=== PATIENT | male | born 1950 | race Caucasian/White ===

== ENCOUNTER → 2020-07-16 12:32 | Outpatient (CLI) | payer MEDICARE, SELFPAY ==
--- NOTE | ~2020-07-16 | XR_ITS ---
EXAMINATION: XR hip RT min 2V DATE: 07/16/2020 13:00 INDICATION: Right hip pain. TECHNIQUE: 2 views of right hip were obtained. COMPARISON: CT abdomen and pelvis 04/22/2018 FINDINGS: There is lumbar levocurvature and severe spondylosis. No fracture. There is mild osteoarthr itis of right hip. IMPRESSION: 1. Mild right hip osteoarthritis. Reviewed, dictated and finalized at location A. CTOR OF SPORTS MEDICINE
== END ==
PROVIDERS: PCP Family Medicine; Visit Provider Family Medicine
DX: M16.11 Unilateral primary osteoarthritis, right hip (principal)
CPT/HCPCS: 73502

== ENCOUNTER 2020-07-25 09:55 | Outpatient (CLI) | payer MEDICARE, SELFPAY ==
--- NOTE | ~2020-07-25 | US_ITS ---
EXAMINATION: US venous doppler LE RT DATE: 07/25/2020 10:36 INDICATION: Right lower limb pain and swelling. TECHNIQUE: Grayscale ultrasound images without and with compression and Doppler ultrasound images of the right lower extremity veins were obtained. COMPARISON: Ultrasound 05/31/2019 FINDINGS: The visualized portions of right common femoral vein, profunda (deep) femoral vein, femoral vein, pop liteal vein, peroneal veins, posterior tibial veins, and greater saphenous vein outflow are patent. IMPRESSION: 1. No deep venous thrombosis. Reviewed, dictated and finalized at location A. ORK TECHNOLOGY INSTRUCTOR
== END 2020-07-25 09:56 | disposition home or self-care (01) ==
PROVIDERS: PCP Family Medicine; Visit Provider Family Medicine
DX: M79.661 Pain in right lower leg (principal)
CPT/HCPCS: 93971

== ENCOUNTER 2020-10-11 13:30 | Outpatient (RCR) | payer MEDICARE, SELFPAY ==
--- NOTE | 2020-09-10 14:23 | LSVTBIG ---
PHYSICAL THERAPY EVALUATION AND PLAN OF CARE for LSVT BIG Thank you for referring Ori Bernardo to [facility].? The patient is scheduled to be seen for therapy? 2x/week for 4 weeks. Please review, sign, date and return this plan of care TAMMY. I agree with and certify that the following plan of care is medically necessary. Referring Physician Date Attending Provider: Dhiraj Cooper Physical Therapy Evaluation Outpatient Past Medical History Neurological History Hx Parkinson's Disease Yes Respiratory History Hx Asthma Yes Hx Sleep Apnea Yes Musculoskeletal History Hx Arthritis Yes: lumbar spine, hips Diagnosis Parkinson's Disease Onset 07/2014 Subjective Information Ori is here to participate Query Text:As Reported By Patient/ in LSVT program. He was Family diagnosed with PD in 2013. Notes that prior to July of 2020 he was walking occasionally with a cane, but he fellt twice and is now walking with a rollator. Self Report Pain Assessment Back Reported Pain Level 3 Pain Description Numbness,Tingling Pain Score Pain Score 3: Self Report Interventions Used Interventions Used By Clinicians Position Change Pain Relief Interventions Used By None Patient Parkinson's Related History Parkinson's Related History Diagnosis/Stage Date Of Initial 07/2014 Diagnosis What Were Your Initial Symptoms Of slowed speech, decreased Parkinson's Disease? loudness in voice, tremors mostly in left Do You Have A Tremor? Yes Describe Tremors tremors were worse at initial diagnosis, but now festinating head and arm movements are worse than tremors Medication For Parkinson's Disease carbadopa, levadopa, pramapixel, In What Ways Are Your Medications For keep me steadier, helps Parkinson's Helpful? activity level to maintain the same throughout the day Does Your Parkinson Medication Affect smooths movements out Your Movement? Please Describe Do You Experience On/Off Symptoms? states there is very little to Please Describe no tapering of symptoms between doses of medications, even at night Do You Experience Dyskinesias? yes, Have You Had Neurosurgery? Please no Describe Have You Had Orthopedic Surgery? Please no Describe Social History Socia
--- NOTE | 2020-09-11 11:11 | LSVTLOUD ---
SPEECH THERAPY EVALUATION and PLAN OF CARE for LSVT LOUD: Thank you for referring Ori Bernardo to [facility].? The patient is scheduled to be seen for therapy? 4x/week for 4 weeks. Please review, sign, date and return this plan of care TAMMY. I agree with and certify that the following plan of care is medically necessary. Referring Physician Date Admitting Provider: Attending Provider: Dhiraj Cooper *LSVT LOUD Evaluation Start: 09/10/20 14:12 Freq: Status: Active Protocol: Document 09/10/20 15:26 BECHERERT (Rec: 09/10/20 15:57 BECHERERT [id number]) Therapy Assessment Status Assessment Status Assessment Status Evaluation Outpatient Past Medical History Past Medical History Source of Past Medical History Patient Neurological History Hx Parkinson's Disease Yes: dx'd 2013 Respiratory History Hx Asthma Yes Hx Sleep Apnea Yes Musculoskeletal History Hx Arthritis Yes: lumbar spine, hips Prior Level of Function Activity Level (Last 3 Months) 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 Home Meds Must Be Re-entered With Each Visit. Prior Swallow Level Prior Intake Method Oral Prior Diet Regular (Level 7 Diet) Prior Liquid Consistency Thin (Level 0 Diet) Comments Additional Prior Level of Function pt reports he remains pretty Comments steady (re med effects) throughout the day and doesn't notice any decline when its time for meds. Pain Assessment Timing of Pain Assessment Timing of Pain Assessment Assessment Self Report Self Report Pain Level 0 Pain Score Pain Score 0: Self Report LSVT LOUD Evaluation Medical Information Date of Initial Diagnosis July, What Were Your Initial Symptoms of I noticed I could no longer Parkinson's Disease? trach talk with the inmates; I couldn't keep up in regards to speed and clarity. Medications For Parkinson's Disease carbidopa and levodopa How is Your Parkinson Medication Helpful reports not having any off/ ? on symptoms; pt feels that he remains steady re meds. Does Your Parkinson Medication Affect Pt stated no change with voice Your Voice? Please Describe after medications Do You Experience On/Off Symptoms? No Please Describe Surgical Informa
--- NOTE | 2020-09-13 10:19 | LSVTBIG ---
OCCUPATIONAL THERAPY EVALUATION REPORT 09/13/20 Thank you for referring Ori Bernardo to [facility].? The patient is scheduled to be seen for occupational therapy for LSVT BIG program? 2x/week for 4 weeks. Please review, sign, date and return this plan of care TAMMY. I agree with and certify that the following plan of care is medically necessary. Referring Physician Date Referring Provider: Dhiraj Cooper *LSVT BIG Evaluation Therapy Discipline Therapy Discipline Occupational Therapy Therapy Assessment Status Assessment Status Assessment Status Evaluation Outpatient Past Medical History Past Medical History Source of Past Medical History Patient Neurological History Hx Parkinson's Disease Yes: dx'd 2013 Respiratory History Hx Asthma Yes Hx Sleep Apnea Yes Musculoskeletal History Hx Arthritis Yes: lumbar spine, hips Evaluation Information Problem Diagnosis Parkinson's Disease Onset 07/2014 Subjective Information Ori is here to participate Query Text:As Reported By Patient/ in LSVT program. He was Family diagnosed with PD in 2013. Notes that prior to July of 2020 he was walking occasionally with a cane, but he fell twice and is now walking with a rollator. Previous Treatments Previous Treatments For This Problem Rock Steady Boxing ~5 years, currently goes 2x/week Pain Assessment Timing of Pain Assessment Timing of Pain Assessment Assessment Pain Scale Pain Scale Used Numeric (1 - 10) Self Report Pain Assessment Bilateral Leg(s) Reported Pain Level 4 Pain Description Tingling Back Reported Pain Level 0 Pain Score Pain Score 0,4: Self Report Interventions Used Interventions Used By Clinicians Rest Parkinson's Related History Parkinson's Related History Diagnosis/Stage Date Of Initial 07/2014 Diagnosis What Were Your Initial Symptoms Of slowed speech, decreased Parkinson's Disease? loudness in voice, tremors mostly in left Do You Have A Tremor? Yes Describe Tremors tremors were worse at initial diagnosis, but now festinating head and arm movements are worse than tremors Medication For Parkinson's Disease carbadopa, levadopa, pramapixel In What Ways Are Your Medications For keep me steadier, helps Parkinson's Helpful? activity level to maintain the same throughout the day Does Your Parkinson Medication Affect smooths mo
--- NOTE | 2020-10-03 09:07 | PCSTNOTE ---
10th Visit Progress Note for 10-02-20: Initial Goals: At this time, the pt presents with the following progression: 1* Pt will increase vocal loudness to reach target sound pressure level of 70db SPL at a 50cm microphone to mouth distance from 64.45dB at the time of the evaluation during sustained phonation, which will help increase vocal respiratory support required to be understood without cues. - pt is exhibiting consistent increased loudness during sustained phonation of greater that 75dB and is doing so with minimal to no cueing. 2* Pt will increase maximum phonation time to reach a duration of 12 seconds with min cues from 7.8 seconds at time of initial evaluation during sustained phonation, which will help increase vocal respiratory support required to be understood. - over the past 8 sessions the pt is exhibiting average phonation time of at least 12 seconds; moreover, during the past 4 sessions, the pt has achieved average phonation times exceeding 20 seconds. 3* Pt will increase vocal loudness to reach target sound pressure level of 68db SPL at a 50cm microphone to mouth distance with min cues from 64.32dB at the time of the evaluation during reading at word and sentence levels. - pt is exhibiting dB levels during reading of functional phrases greater than 70 with minimal cueing. 4* Pt will increase vocal loudness to reach target sound pressure level of 66db SPL at a 50cm microphone to mouth distance with min cues from 62.06dB at the time of the evaluation during conversational speech. - pt is not consistently achieving the targeted 66dB loudness level during conversational speech. At times, the pt averages 64-65 just falling below the target. 5*Understand communication impairment- pt verbalized understanding of communication impairment 6*Understand compensatory strategies 7*Understand treatment plan RE goals 5,6,& 7: The pt verbalizes understanding of communication impairment, compensatory strategies, & understands (via returned demonstration) treatment plan.
--- NOTE | 2020-10-10 14:05 | LSVTBIG ---
PHYSICAL THERAPY DISCHARGE NOTE Thank you for referring Ori Bernardo to [facility].? Please review, sign, date and return this plan of care TAMMY. I agree with and certify that the following plan of care is medically necessary. Referring Physician Date Attending Provider: Dhiraj Cooper Discharge Diagnosis Parkinson's Disease Onset 07/2014 Subjective Information Ori reports that his Query Text:As Reported By Patient/ has noticed a change in his Family mobility and walking. He is using his rollator less and less and feels safe to do so. He is ready to graduate from LSVT program and is understanding of all HEP. 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 3seconds 1month ago = 14 5 Time Sit to Stand Time in Seconds 12.5 5 Time Sit to Stand Comments 1month ago = 15.16seconds Query Text:Normative Data: If Greater Than 15 Seconds, 74% Increase Risk for Recurrent Falls Gait Assessment 6 Minute Walk Total Distance (feet) 1,242 6 Minute Walk Gait Speed Score (feet/ 3.45 second) 6 Minute Gait Comments today with rolltaor 1month ago with rollator walker: 1219ft, 3.38ft/second 2 Minute Walk Total Distance Walked (feet) 429 2 Minute Walk Gait Speed Score (feet/ 3.57 second) 2 Minute Walk Test Comments 1m
--- NOTE | 2020-10-11 13:16 | LSVTBIG ---
OCCUPATIONAL THERAPY RE-EVAL REPORT AND DISCHARGE SUMMARY 10/11/20 Today's OT re-evaluation reveals improved functional abilities with ADLs and mobility-related ADL tasks. He is currently independent with all materials. Discharging today with HEP. Thank you for referring Ori Bernardo to [facility].? Please review, sign, date and return this plan of care TAMMY. I agree with and certify that the following plan of care is medically necessary. Referring Physician Date Referring Provider: Dhiraj Cooper *LSVT BIG Evaluation Evaluation Information Problem Diagnosis Parkinson's Disease Onset 07/2014 Subjective Information Ori reports that his Query Text:As Reported By Patient/ have noticed improvements with Family his walking, balance, and voice. He is using his rollator less and less and feels safe to do so. He is independent with all LSVT exercsies and understands the importance of continuing to do these on his own. He is happy with the way things have been going . Pain Assessment Timing of Pain Assessment Timing of Pain Assessment Re-assessment Pain Scale Pain Scale Used Numeric (1 - 10) Self Report Pain Assessment Bilateral Leg(s) Reported Pain Level 2 Pain Description Aching Pain Score Pain Score 2: Self Report Interventions Used Interventions Used By Clinicians Rest ADL Assessment ADL Assessment Timed Dressing Tasks Timed patient's ability to dof , untie, tie, and don right shoe: 34 seconds (4 seconds faster) Timed Handwriting Worksheet: filling out name, address, , etc.: 49 seconds , right handed; no change in speed of completing worksheet, but handwriting is much larger and more legible Timed Mobility Related Task Moving to/from treatment 10 to 8, laying supine, rolling onto back and returning to room 10: 47 seconds (6 seconds faster). Pt did not use a rollator for mobility to/from. 9-Hole Peg Hand Test Interpretation Minimally Below Normal Comments 9-hole peg (R) hand 26s, (L) hand 24s ADL Assessment Comments At eval: (R) hand completed in 27 sec and (L) hand in 31 sec
--- NOTE | 2020-10-11 16:08 | LSVTLOUD ---
SPEECH THERAPY DISCHARGE: Thank you for referring rOi Bernardo to [facility].? Mr Bernardo is being discharge at this time. Refer to the re evaluation/discharge information below as it pertains to specifics of his vocal intensity. Please review, sign, date and return this discharge plan. I agree with and certify with the discharge from Speech Therapy services at this time. Referring Physician Date Attending Provider: Dhiraj Cooper *LSVT LOUD Re Evaluation/DISCHARGE: Therapy Assessment Status Assessment Status Assessment Status Discharge Outpatient Past Medical History Past Medical History Source of Past Medical History Patient Neurological History Hx Parkinson's Disease Yes: dx'd 2013 Respiratory History Hx Asthma Yes Hx Sleep Apnea Yes Musculoskeletal History Hx Arthritis Yes: lumbar spine, hips Evaluation Information Problem Diagnosis Parkinson's Disease Onset 07/2015 Subjective Information Ori reports that his Query Text:As Reported By Patient/ have noticed improvements with Family his voice; although she stills tells him to talk louder. He is independent with all LSVT exercises and understands the importance of continuing to do these on his own. He is happy with the way things have been going . Pain Assessment Timing of Pain Assessment Timing of Pain Assessment Assessment Self Report Self Report Pain Level 0 Pain Score Pain Score 0: Self Report LSVT LOUD Evaluation Medical Information Medications For Parkinson's Disease carbidopa and levodopa Task 1 LSVT LOUD Evaluation Protocol Maximum Duration of Sustained Vowel Phonation Task 1: Sound Pressure Level Meter to 50cm Mouth Distance Task 1: Average of -ah- in Seconds 26.61 Task 1: Average of -ah- in Decibels of 79.77 Sound Pressure Level Query Text:(dB SPL) Task 1: Range (dB SPL) 73-85 Task 1: Comments The above task was completed without any instruction to increase loudness. During treatment sessions, pt has achieved an average as high as 29.06 and average db as high as 82 Task 2 LSVT LOUD Evaluation Protocol Maximum Fundamental Frequency Range Task 2: Highest Pitch 380 Task 2: Pitch Range 375-380 Task 2: Lowest Pitch 85 Task 2: Pitch Range 85-137 Task 2: Comments In treatment sessions, pt has
== END 2020-10-12 07:49 | disposition home or self-care (01) ==
LOC: ANHST 13:30
PROVIDERS: PCP Internal Medicine
DX: G20 Parkinson's disease (principal); R13.0 Aphagia
CPT/HCPCS: 92507; 92524; 97110; 97116; 97162; 97166; 97530

== ENCOUNTER 2020-11-02 10:00 | Outpatient (RCR) | payer MEDICARE, SELFPAY ==
--- NOTE | 2020-10-12 11:40 | PTOPEVAL ---
PHYSICAL THERAPY EVALUATION AND PLAN OF CARE 10-12-20 Thank you for referring Ori Bernardo to [facility], for the diagnosis of LE lymphedema. Gene is scheduled to be seen for therapy? 3 x/week for 4 weeks. Please review, sign, date and return this plan of care TAMMY. I agree with and certify that the following plan of care is medically necessary. Referring Physician Date Attending Provider: Ronald Morse DO *PT Outpatient Evaluation Document 10/12/20 10:40 MARTHA (Rec: 10/12/20 11:40 MARTHA [id number]) Outpatient Past Medical History Past Medical History Source of Past Medical History Recalled from Previous Visit, Confirmed with Patient/Family Neurological History Hx Parkinson's Disease Yes: dx'd 2013 Cardiovascular History Hx Cardiac Disorders No Significant History Respiratory History Hx Asthma Yes Hx Sleep Apnea Yes Gastrointestinal History Hx Hernia Yes: surgical repair 2016 Genitourinary History Hx Other Genitourinary Disorders Yes: overactive bladder- meds Musculoskeletal History Hx Arthritis Yes: lumbar spine, hips Endocrine History Hx Endocrine Disorders No Significant History HEENT History Hx Other HEENT Disorders Yes: wear glasses; 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 Reproductive History Hx Other Reproductive Disorders Yes: cyst removed from testicle ~ 2016 Evaluation Information Problem Diagnosis lymphedema of B LE, R > L Onset 2019 Subjective Information have had swelling in legs for Query Text:As Reported By Patient/ a few years Family Previous Treatments Previous Treatments For This Problem recent PT here for LSVT- Parkinson's program Prior Level of Function Activity Level (Last 3 Months) Occupation retired Activity of Daily Living Ability Independent Indoor/Home Mobility Independent Community Mobility Independent Stairs Ability Independent Functional Cognition (Planning, Shopping Independent , Taking Medications) Cooking Yes Cleaning Yes Laundry Yes Shopping Yes Driving Yes Home Setting Mobility Assistive Devices (Used Last 3 None,Walker, Rollator Months) Comments Additional Prior Level of Function in home do not use rollator; Comments difficulty getting on/off floor; Pain Assessment Timing of Pain Assessment Timing of Pain Assessment Assessment Pain Scale Pain Scale Used Numeric (1 - 10) Self Repo
--- NOTE | 2020-10-24 15:57 | PCPTNOTE ---
Discussed pt with Mira Hawkins ADULT PAROLE OFFICER and EMR reviewed; pt's L LE has increased in size with circumferential measurement increased by 1.3 cm; plan of care to include treatment to L LE--compression wraps and MLD;
--- NOTE | 2020-11-02 16:16 | PCPTNOTE ---
PHYSICAL THERAPY DISCHARGE 11-02-20 Attending Provider: Ronald Morse DO Patient:Ori Bernardo Date of :1950 Mr. Bernardo has received a total of 9 PT sessions for the diagnosis of B LE lymphedema. Circumferential measurements of his legs, from the bottom of the foot, up to 68 cm: R is 735.7 cm, decreased by 28.5 cm and L is 725.0 cm, decreased by 11 cm, compared to the initial evaluation. The skin integrity has improved of both legs--no longer has any redness or firmness of the tissue. Gene has R and L compression knee highs- Mediven Plus, 20-30 mmHg compression knee highs, to maintain his lymphedema. And is independent with donning/doffing them. Education has been completed on lymphedema, and he is independent with doing his self lymph drainage, compression knee highs and monitor his skin. The goals have been achieved. Therefore, he will be discharged from PT at this time. Thank you for referring Mr. Bernardo to [facility]. Please review, sign, date and return this discharge summary TAMMY. I have been updated about the patient's current status and I agree with discharge from the above service at this time. Referring Physician Date
== END 2020-11-05 14:37 | disposition home or self-care (01) ==
LOC: ANHPT 10:00
PROVIDERS: Family Provider Family Medicine; PCP Internal Medicine; Referring Provider Internal Medicine; Visit Provider Internal Medicine
DX: I89.0 Lymphedema, not elsewhere classified (principal)
CPT/HCPCS: 29581; 97140; 97161

== ENCOUNTER → 2020-11-27 14:02 | Outpatient (CLI) | payer MEDICARE, SELFPAY ==
--- NOTE | ~2020-11-27 | XR_ITS ---
EXAMINATION: XR foot LT min 3V DATE: 11/27/2020 14:52 INDICATION: Left foot pain. TECHNIQUE: 4 views of left foot were obtained. COMPARISON: None. FINDINGS: Bone alignment is normal. No acute fracture. There is diffuse osteopenia. There is mild ost eoarthritis of first metatarsophalangeal joint and many of the interphalangeal joints and midfoot kisha nts. There is severe osteoarthritis of second tarsometatarsal joint. There are enthesophytes at the p osterior and plantar aspects of calcaneal tuberosity. IMPRESSION: 1. Polyarticular osteoarthritis. Reviewed, dictated and finalized at location A.
== END ==
PROVIDERS: PCP Internal Medicine; Visit Provider Internal Medicine
DX: M19.072 Primary osteoarthritis, left ankle and foot (principal)
CPT/HCPCS: 73630

== ENCOUNTER → 2021-12-27 01:34 | Outpatient (CLI) | payer MEDICARE, SELFPAY ==
[2021-12-27 12:42] LABS: SARS-CoV-2 RNA PCR Positive
== END ==
PROVIDERS: PCP Internal Medicine; Visit Provider Internal Medicine
DX: U07.1 COVID-19 (principal)
CPT/HCPCS: C9803; U0003; U0005

== ENCOUNTER → 2022-02-18 07:36 | Outpatient (CLI) | payer MEDICARE, SELFPAY ==
--- NOTE | ~2022-02-18 | XR_ITS ---
EXAMINATION: XR hip LT 2V w AP pelvis INDICATION: Left hip pain TECHNIQUE: AP view of the pelvis and left hip are obtained. COMPARISON: 08/25/2017 FINDINGS: Bone alignment is normal. There is no fracture. There is mild osteoarthritis of the hips. S evere lumbar spondylosis is noted. IMPRESSION: 1. Mild osteoarthritis of the hips. Reviewed, dictated and finalized at location A.
== END ==
PROVIDERS: PCP Internal Medicine; Visit Provider Nurse Practitioner
DX: M16.0 Bilateral primary osteoarthritis of hip (principal)
CPT/HCPCS: 73502

== ENCOUNTER 2022-12-02 08:30 | Outpatient (RCR) | payer MEDICARE, SELFPAY ==
--- NOTE | 2022-11-05 13:23 | PTOPEVAL1 ---
Assessment and note entered by Kay Munoz, PT Evaluation Information Assessment Status Evaluation Diagnosis Parkinson's Disease with gait and imbalance Onset May 2022 Subjective Information gradual decrease in balance; had 2 falls in the past 6 months-- tripped over carpets; was able to get himself up off floor; Do [employer] boxing 2x/wk, spin/bicycle class 2x/wk, have [employer] membership and walk outside when weather is nice; have been here in the past for the LSVT program but not doing those exercises anymore; feels like his Parkinson's is getting worse; is taking the max dose of his meds; going to the dr next week about his L ear--have failed implant and having pain and issues with it; to see dr about if need to remove the implant. Reported Pain Level Pain Score 4: Self Report Additional Pain Score Comments arthritis in both hips, per xray Assessment PT Clinical Summary Arthur has the diagnosis of Parkinson's Disease with decreased gait and balance. He is now using the wheeled walker all of the time and has had 2 falls in the past 6 months. He has been staying active with [employer], [employer] exercises and walking, but reports still having problems with balance and walking. With the evaluation, his 5 reps sit/stand time is WNL, Camejo balance score is decreased 36/56; TUG is 16 seconds and 2 minute walking test distance is 375'; he has decreased safety with stand to sit transfer and festering gait pattern, with decreased heel strike. Skilled PT services are indicated for therapeutic exercises and activities to increase LE strength, gait and balance skills, to improve safety and mobility, to decrease risk for additional falls and improve mobility skills. Use of LSVT program. Education for home exercises. Plan of Care Interventions Gait Training,Neuro Re-education,Patient/Caregiver Education,Therapeutic Activities,Therapeutic Exercise,Other Other Interventions LSVT program PT Services Indicated Yes Treatment Frequency and 2x/wk for 4 weeks Duration These treatments will address the objective and functional deficits as defined above. The patient will be advanced safely and appropriately in order for the patient to progress towards his/her prior level of function. Additional exercises will be introduced and as well as a comprehensive home exercise program upon di
--- NOTE | 2022-12-02 09:09 | PTOPDC ---
Assessment and note entered by Kay Munoz, PT Evaluation Information Assessment Status Discharge Diagnosis Parkinson's Disease with gait and imbalance Onset May 2022 Subjective Information Arthur reports: about the same with walking and balance; have not had any falls; still have pain in the hips, some days hips feel better than others; is still doing [employer], spinning classes, chair exercises; Reported Pain Level Pain Score 0: Self Report; does have pain in hips at times Assessment PT Clinical Summary Arthur has received 8 PT sessions. Compared to the initial evaluation: 2 minute walking test distance increased by 50'; gait pattern has improved with good step length and heel strike during the walk test; Camejo balance score increased by 1 point--he continues to have difficulty with single leg standing and small base of support activities; he continues to have issues with festering with sit/stand- initiation and stopping gait; He is indep with his home exercises and remains active with [employer]--Parkinson's boxing class, spinning class on bicycle, walking and exercises from therapy sessions. The goals were partially achieved. Discharge PT services. Plan of Care PT Services Indicated No
== END 2022-12-02 15:06 | disposition home or self-care (01) ==
LOC: ANHPT 08:30
PROVIDERS: PCP Internal Medicine
DX: G20 Parkinson's disease (principal)
CPT/HCPCS: 97110; 97112; 97161; 97530

== ENCOUNTER 2023-01-16 10:16 | Emergency (ER) | payer MEDICARE, SELFPAY ==
[2023-01-16 10:25] VITALS: BP 122/49; PULSE 65; RESP 20; TEMP 36.6; O2SAT 98
--- NOTE | 2023-01-16 11:15 | ED.BACK ---
HPI - Back Pain/Injury General Chief Complaint: Back Pain/Injury Stated Complaint: Back Pain Time Seen by Provider: 01/16/23 11:15 Source: patient, RN notes reviewed and old records reviewed Mode of arrival: ambulatory Limitations: no limitations History of Present Illness HPI Narrative: 72-year-old male presents to the [facility] complaints of left lower back pain since Thursday. No injuries. Tenderness through the muscular area. No midline tenderness. reports his normal gait, has a history of Parkinson's. No loss retention of bowel or bladder. No saddle anesthesia nor numbness or tingling in extremities. States his muscle relaxer is not working. Tried getting in with primary care provider for stronger pain medication. Related Data Home Medications Medication Instructions Recorded Confirmed calcium polycarbophil 625 mg 1,250 mg PO BID 03/24/22 10/09/22 tablet (FiberCon) gabapentin 400 mg capsule 300 mg PO QHS 04/25/22 10/09/22 amantadine HCl 100 mg capsule 100 mg PO TID 09/29/22 10/09/22 carbidopa 25 mg-levodopa 250 mg 1 tablet PO TID 09/29/22 10/09/22 tablet entacapone 200 mg tablet 200 mg PO QID 09/29/22 10/09/22 pramipexole 1 mg tablet (Mirapex) 1 mg PO TID 09/29/22 10/09/22 Vitamin B-12 1,000 mg 01/16/23 vibegron 75 mg tablet (Gemtesa) mg 01/16/23 Allergies Allergy/AdvReac Type Severity Reaction Status Date / Time No Known Allergies Allergy Verified 01/16/23 10:49 Review of Systems Review of Systems: All systems reviewed & are unremarkable except as noted in HPI and below Constitutional: Constitutional: Reports no additional constitutional complaints Eyes: Eyes: Reports no additional eye complaints ENT: Reports system reviewed and no additional complaints, except as documented Cardiovascular: Cardiovascular: Reports no additional cardiovascular complaints, Denies chest pain and Denies dyspnea Respiratory: Respiratory: Reports no additional respiratory complaints, Denies chest congestion, Denies cough and Denies dyspnea Gastrointestinal: Gastrointestinal: Reports no additional gastrointestinal complaints, Denies abdominal pain, Denies nausea and Denies vomiting Musculoskeletal: Musculoskeletal: Reports as per HPI Integumentary/Breasts: Skin/Breast: Reports system reviewed and no additional complaints, except as docu Neurologic: Reports system reviewed and no additional complaints, except as documented Psychiatric: Psychiatric: Reports no additional psychiatric complaints Allergic/Immunologic: Allergic/Immunologic: Reports no additional allergic/immunologic complaints [facility] Past Medical History Medical History Asthma Body mass index (bmi) 39.0-39.9, adult (01/20/18) Body mass index (BMI) 40.0-44.9, adult (07/29/18) Encounter for other specified surgical aftercare Esophageal reflux Extrinsic asthma, unspecified Lymphedema Non-recurrent bilateral inguinal hernia without obstruction or gangrene KYLE on CPAP Parkinson disease Surgical History Surgical History History of ear surgery (~11/2017) Implant - Lt Ear History of removal of cyst (~07/29/17) Rt Testicle History of surgery on arm (~1998) Muscle Tear - Rt History of tooth extraction Family History Family History Father Diabetes mellitus Mother Hypertension Family history of kidney disease Family history of renal failure Sibling Asthma Family history of malignant neoplasm Family history of seizure disorder Family history of sudden , Onset Age: 57 Family history of congestive heart failure, Onset Age: 57 Protein S deficiency Social History Social History Smoking status: Never smoker Second hand tobacco smoke exposure: No Alcohol intake: never Substance use:
[2023-01-16 11:48] VITALS: BP 120/40
== END 2023-01-16 11:48 | disposition home or self-care (01) ==
PROVIDERS: Emergency Provider Nurse Practitioner; PCP Family Medicine Adolescent Medicine
DX: S39.012A Strain of muscle, fascia and tendon of lower back, initial encounter (principal); X58.XXXA Exposure to other specified factors, initial encounter; G20 Parkinson's disease; J45.909 Unspecified asthma, uncomplicated; K21.9 Gastro-esophageal reflux disease without esophagitis; G47.33 Obstructive sleep apnea (adult) (pediatric)
CPT/HCPCS: 99213; G0463

== ENCOUNTER 2023-02-16 14:00 | Outpatient (RCR) | payer MEDICARE, SELFPAY ==
--- NOTE | 2023-02-10 09:51 | OPREHPOC ---
Outpatient Therapy Plan of Care This is a Multidisciplinary Plan of Care that may contain components documented by all disciplines (PT, OT, and ST.) PT Problem 1 PT Problem #1 Knowledge Deficit PT Goal 1 Goal Independent with HEP Target Visit 6 PT Problem 2 PT Problem #2 Pain PT Goal 1 Goal decrease pain to 4/10 first thing in the morning Target Visit 6 PT Problem 3 PT Problem #3 Impaired Flexibility PT Goal 1 Goal -30 degrees BIGG hamstring length in 90/90 Target Visit 6
--- NOTE | 2023-02-10 09:51 | PTOPEVAL1 ---
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 Patient reports it mainly hurts after being immobile for awhile like sleeping and feeling better after walking. Patient reports he stays active doing [employer] boxing, a spin class, and walking for at least 30 minutes duration at the [facility]. The patient has a prior diagnosis of PD and uses a 4WW. Patient wants to stay as mobile as he can. Reported Pain Level Pain Score 8: Self Report Assessment PT Clinical Summary Gene is a 72 year old male coming into the clinic with a diagnosis of L hip pain. Patient has a positive scouring test, tightness in his hamstring , decreased hip extension range of motion and weakness in the hip extension, abduction. Along with stretching and strengthening of the L hip physical therapist recommended to the patient that he might want to get an orthopedic referral for possible injection or further imaging. Physical therapy will also do modalities and manual as needed for pain control. Plan of Care Interventions Electrical Stimulation,Gait Training,Hot Pack/Cold Pack,Manual Therapy,Neuro Re-education,Patient/ Caregiver Education,Therapeutic Activities, Therapeutic Exercise,Ultrasound Other Interventions cupping, taping, IASTM PT Services Indicated Yes Treatment Frequency and 1-2x/wk for 4 weeks Duration These treatments will address the objective and functional deficits as defined above. The patient will be advanced safely and appropriately in order for the patient to progress towards his/her prior level of function. Additional exercises will be introduced and as well as a comprehensive home exercise program upon discharge, if needed, ?to ensure carryover of functional gains achieved in the clinic. This treatment plan has been reviewed and agreement upon by the patient.
--- NOTE | 2023-02-18 07:52 | PCPTNOTE ---
Patient called & cancelled scheduled appointment this date due to having problems with his hip. He said that he was going to go to the doctor to get it looked at.
--- NOTE | 2023-02-19 15:32 | PTOPDC ---
Assessment and note entered by Jim Scott, PT Evaluation Information Assessment Status Discharge - Pt Not Present Diagnosis L hip pain Subjective Information Arthur called into the yield clerk and asked to cancel all appointments. Said he would get a new order if he needs to return. Assessment PT Clinical Summary Arthur is a 72 year old male coming into the clinic with a diagnosis of L hip pain. Patient has a positive scouring test, tightness in his hamstring , decreased hip extension range of motion and weakness in the hip extension, abduction. Along with stretching and strengthening of the L hip physical therapist recommended to the patient that he might want to get an orthopedic referral for possible injection or further imaging. Physical therapy will also do modalities and manual as needed for pain control. Plan of Care PT Services Indicated Yes
== END 2023-02-20 08:20 | disposition home or self-care (01) ==
LOC: ANHPT 14:00
PROVIDERS: PCP Family Medicine; Visit Provider Nurse Practitioner Family
DX: M54.9 Dorsalgia, unspecified (principal)
CPT/HCPCS: 97035; 97110; 97161

== ENCOUNTER 2023-09-03 09:08 | Emergency (ER) | payer MEDICARE, SELFPAY ==
[2023-09-03] VITALS (13 sets, daily range): BP systolic 140–163; BP diastolic 62–114; PULSE 64–71; RESP 17–31; TEMP 36.6; O2SAT 96–99
--- NOTE | ~2023-09-03 | CT_ITS ---
EXAMINATION: CT brain wo con DATE: 09/03/2023 10:09 INDICATION: Parkinson's disease post fall TECHNIQUE: Computed tomography (CT) of the head was performed without intravenous contrast. Sagittal and coronal reconstructions were performed. The mA was adjusted according to patient size. Iterative reconstruction technique was employed. The dose-length product was 1362.00 mGy-cm. COMPARISON: Brain MR dated 06/13/2014 FINDINGS: No fracture. No acute intracranial hemorrhage, acute infarction or abnormal extra axial fluid collect ion. There is mild scattered white matter hypoattenuation consistent with chronic small vessel ischem ic disease. Ventricles are normal and symmetric. No mass/mass effect. The orbits, paranasal sinuses a nd mastoid air cells are normal. IMPRESSION: 1. No fracture or acute intracranial process. 2. Mild scattered white matter hypoattenuation consistent with chronic small vessel ischemic disease. Reviewed, dictated and finalized at location A. ER OVER IMPRESSION: 1. No fracture or acute intracranial process. 2. Mild scattered white matter hypoattenuation consistent with chronic small ve ssel ischemic disease.
--- NOTE | ~2023-09-03 | CT_ITS ---
EXAMINATION: CT lumbar spine wo con DATE: 09/03/2023 10:10 INDICATION: Low back pain and radiculopathy post fall TECHNIQUE: Computed tomography (CT) of the lumbar spine was performed without intravenous contrast. A utomated exposure control and iterative reconstruction technique were employed. The dose-length produ ct was 1621.48 mGy-cm. COMPARISON: Lumbar spine radiographs dated 08/25/2017 and KUB dated 06/30/2019 FINDINGS: Unchanged 14 degree levoscoliosis measured between L1 and L3. There is severe disc height loss with a ssociated Modic type III sclerotic endplate changes at L2-L3, L5-S1 and at the right side of L1-L2. S ome associated endplate remodeling resulting in mild right anterior vertebral body height loss at L1 and L2 and mild left-sided vertebral body height loss at L5. More typical likely physiologic mild ant erior wedging at T11. No acute fracture additional severe disc height loss at L4-L5, moderate left-si ded predominant disc height loss at L3-L4 and mild disc height loss at multiple levels in the visuali zed lower thoracic spine. 3 mm nonobstructing stone at the lower pole of the right kidney. Moderate b ilateral sacroiliac osteoarthritis. The following disc levels are specifically discussed: T8-T9: There is mild bilateral facet joint osteoarthritis. There is mild left neural foraminal stenos is. There is no central canal stenosis. T9-T10: There is mild right and moderate left facet joint osteoarthritis. There is mild bilateral regan ral foraminal stenosis. There is no central canal stenosis. T10-T11: There is mild right and severe left facet joint osteoarthritis. There is mild bilateral neur al foraminal stenosis. There is no central canal stenosis. T11-T12: There is mild bilateral facet joint osteoarthritis. There is mild bilateral neural foraminal stenosis. There is no central canal stenosis. T12-L1: There is moderate left and mild to moderate right facet joint osteoarthritis. There is no regan ral foraminal stenosis. There is no central canal stenosis. L1-L2: Posterior disc osteophyte complex. There is severe right and mild to moderate left facet joint osteoarthritis. There is mild left and moderate right neural foraminal stenosis. There is mild centr al canal stenosis. L2-L3: Posterior disc osteophyte complex. There is moderate bilateral facet joint osteoarthritis. The re is moderate bilateral neural foraminal stenosis. There is moderate central canal stenosis. L3-L4: Posterior disc osteophyte complex. There is moderate bilateral facet joint osteoarthritis. The re is mild to moderate bilateral neural foraminal stenosis. There is mild central canal stenosis. L4-L5: Posterior disc osteophyte complex. There is moderate bilateral facet joint osteoarthritis. The re is moderate bilateral neural foraminal stenosis. There is mild central canal stenosis. L5-S1: Posterior disc osteophyte complex. There is severe bilateral facet joint osteoarthritis. There is moderate right and severe left neural foraminal stenosis. There is mild central canal stenosis. IMPRESSION: 1. Severe lumbar spondylosis. No acute osseous abnormality. 2. 3 mm nonobstructing right renal stone. Reviewed, dictated and finalized at location A. DING COORDINATOR
--- NOTE | 2023-09-03 09:24 | ED.GENADULT ---
HPI - General Adult General Chief complaint: Extremity Injury, Lower Stated complaint: sciatica, on floor all night Time Seen by Provider: 09/03/23 09:10 Source: patient Mode of arrival: ambulatory Limitations: no limitations History of Present Illness HPI narrative: This is a 73-year-old male with PMH Parkinson's, sciatica, lymphedema, who presents to the ED with EMS with chief complaint of a fall last night. Patient slid out of his chair due to left-sided sciatic pain and was unable to get up from the floor. Denies head injury or LOC. States he was down on the floor all night long until this morning. Reports that he slept great. His called EMS because his pain was so bad he could not get up. Denies fevers, chills, numbness, weakness, loss of bowel or bladder function, saddle anesthesia. Related Data Home Medications Medication Instructions Recorded Confirmed calcium polycarbophil 625 mg 1,250 mg PO BID 03/24/22 07/29/23 tablet (FiberCon) amantadine HCl 100 mg capsule 100 mg PO TID 09/29/22 07/29/23 carbidopa 25 mg-levodopa 250 mg 1 tablet PO TID 09/29/22 07/29/23 tablet entacapone 200 mg tablet 200 mg PO QID 09/29/22 07/29/23 pramipexole 1 mg tablet (Mirapex) 1 mg PO TID 09/29/22 07/29/23 Vitamin B-12 1,000 mg 01/16/23 07/29/23 finasteride 5 mg tablet 5 mg PO DAILY 07/29/23 07/29/23 gabapentin 600 mg tablet 600 mg PO QHS 07/29/23 07/29/23 tamsulosin 0.4 mg capsule 0.4 mg PO DAILY 07/29/23 07/29/23 Allergies Allergy/AdvReac Type Severity Reaction Status Date / Time No Known Allergies Allergy Verified 09/03/23 09:11 Review of Systems Review of Systems: All systems as dictated in [facility] Past Medical History Medical History Asthma Body mass index (bmi) 39.0-39.9, adult (01/20/18) Body mass index (BMI) 40.0-44.9, adult (07/29/18) Encounter for other specified surgical aftercare Esophageal reflux Extrinsic asthma, unspecified Lymphedema Non-recurrent bilateral inguinal hernia without obstruction or gangrene KYLE on CPAP Parkinson disease Surgical History Surgical History History of ear surgery (~11/2017) Implant - Lt Ear History of removal of cyst (~07/29/17) Rt Testicle History of surgery on arm (~1998) Muscle Tear - Rt History of tooth extraction Family History Family History Father Diabetes mellitus Mother Hypertension Family history of kidney disease Family history of renal failure Sibling Asthma Family history of malignant neoplasm Family history of seizure disorder Family history of sudden , Onset Age: 57 Family history of congestive heart failure, Onset Age: 57 Protein S deficiency Social History Social History Smoking status: Never smoker Second hand tobacco smoke exposure: No Alcohol intake: never Substance use: never Substance use type: does not use Lack of Transportation: No Current Housing: I Have Housing Concerned About Future Housing: No Difficulty Paying Gas/Electric Bills: No Difficulty Paying for Meds: No Currently Unemployed: No Education: High School Diploma/GED Difficulty w/ Childcare or Family Care: No Exam Narrative: GENERAL: Well-appearing, well-nourished, and in no acute distress. HEAD: Normocephalic, atraumatic. EYES: PERRLA and EOMI. ENT: Nares clear, no rhinorrhea or epistaxis. Mucous membranes moist. Oropharynx without tonsillar hypertrophy exudate or other lesions. NECK: Supple. No adenopathy or masses. CHEST: No respiratory distress. Clear to auscultation. No wheezes rales or rhonchi HEART: Regular rate and rhythm. No murmur heard. Normal peripheral pulses. ABDOMEN: Soft, nontender, nondistended, normal active bowel sounds. MSK: Normal range of motion
[2023-09-03 09:54] LABS: Basophils Percent Auto 0.5 % (0.2-1.2); Eosinophils Absolute Auto 0.2 K/mm3 (0-0.3); Eosinophils Percent Auto 2.4 % (0-4.4); Hematocrit 43.7 % (42.0-52.0); Immature Granulocyte Absolute 0.02 K/mm3 (0.00-0.031); Immature Granulocyte Percent A 0.3 % (0-0.5); Lymphocytes Percent Auto 15.2 % (18.3-44.2); Mean Corpuscular Volume 90.7 fl (80-100); Mean Platelet Volume 11.3 fl (7.4-10.4); Monocytes Absolute Auto 0.6 K/mm3 (0.1-0.6); Monocytes Percent Auto 7.6 % (2.6-8.5); Neutrophils Absolute Auto 5.8 K/mm3 (1.3-6.7); Platelet Count Result 173 k/mm3 (150-375); Red Blood Count 4.82 M/mm3 (4.6-6.20); Red Cell Distribution Width 13.2 % (11.5-14.5); White Blood Count 7.9 K/mm3 (4.5-10.0)
[2023-09-03 10:07] LABS: Aspartate Amino Transferase 21 U/L (17-59); Blood Urea Nitrogen 17 mg/dL (9-20); Calcium 8.6 mg/dL (8.4-10.2); Creatine Kinase 139 U/L (55-170); Estimated CRCL calculation 100 ml/min; Estimated Glomerular Filt Rate > 60; Potassium 3.9 mmol/L (3.4-5.0); Sodium 141 mmol/L (137-145)
[2023-09-03] MEDS: SODIUM CHLORIDE 0.9% IV 1,000 ML 999 ML IV CONT (10:21)
[2023-09-03] MEDS: HYDROmorphone HCL INJ (*CRX) 1 MG/ML SYR 0.5 MG IV PUSH (10:21)
[2023-09-03 10:54] LABS: Appearance Urine Clear (Clear); Bilirubin Urine 1+ (Negative); Blood Urine Negative (Negative); Color Urine Dark Yellow (Yellow); Glucose Urine UA Negative (Negative); Ketones Urine Trace mg/dL (Negative); Leukocyte Esterase Ur Negative LEU/UL (Negative); Nitrate Urine Negative (Negative); Protein Urine Negative (Negative); Specific Grav Ur 1.027 (1.001-1.035); Urobilinogen Urine 0.2 mg/dL (<2.0); pH Urine 5.5 (5.0-9.0)
[2023-09-03 11:06] LABS: Add Urine Microscopic? NO
[2023-09-03 11:07] LABS: Alanine Aminotransferase 6 U/L (6-50); Albumin Level 3.6 g/dL (3.5-5.1); Alkaline Phosphatase 74 U/L (38-126); Anion Gap 6 mmol/L (8-16); Carbon Dioxide 26 mmol/L (22-30); Chloride 109 mmol/L (98-107); Glucose 104 mg/dL (65-110)
--- NOTE | 2023-09-03 11:34 | PC.NURSE ---
Ambulated in doty using walker. Walked well using walker.
== END 2023-09-03 12:22 | disposition home or self-care (01) ==
PROVIDERS: Emergency Provider Physician Assistant; PCP Family Medicine
DX: M54.42 Lumbago with sciatica, left side (principal); G20.A1 Parkinson's disease without dyskinesia, without mention of fluctuations; J45.909 Unspecified asthma, uncomplicated; G47.33 Obstructive sleep apnea (adult) (pediatric); K21.9 Gastro-esophageal reflux disease without esophagitis; M47.816 Spondylosis without myelopathy or radiculopathy, lumbar region; N20.0 Calculus of kidney; W07.XXXA Fall from chair, initial encounter
CPT/HCPCS: 36415; 70450; 72131; 80053; 81003; 82550; 85025; 96361; 96374; 99284; J1170; J7030

== ENCOUNTER 2023-11-12 14:30 | Outpatient (RCR) | payer MEDICARE, SELFPAY ==
--- NOTE | 2023-09-30 15:13 | STOPEVAL1 ---
Assessment and note entered by Renee Kim [employer]IST Evaluation Information Assessment Status Evaluation Reported Pain Level Pain Score 0: Self Report Assessment ST Clinical Summary VOICE EVALUATION The patient has a history of Parkinson's disease with voice disorder. He reports that he feels that his speech and voice skills have been going downhill in the past two to three years. He was diagnosed with Parkinson's in 2013. Patient reports that he completed the LSVT-LOUD and the BIG program in 2019 or 2020 with Liz, speech pathologist, and a physical therapist at this facility and he felt that it had facilitated improvements in his speech and vocal loudness. Because he feels that his communication skills have faltered, he wants to return for direct Speech Therapy. Patient reports that the communication between him and his and other friends/family is affected by his soft voice. He stated, I do have to repeat a lot. He cannot sit across the room from them and/or must turn the television down to speak loud enough for them to hear him. A voice evaluation was performed; patient's vocal loudness for direct evaluation tasks was judged to be grossly within normal limits, ranging from 73 to 78 decibels; conversational, off the cuff, loudness was found to average at 72 decibels. Average decibel range for conversation in the therapy room is 70-74 decibels placing patient within normal limits. At the same time, due to periods of reduced loudness and fast rate of speech, therapist heard and understood the patient's conversational speech on first attempt at 75% of the time indicating therapist had to request patient repeat his comments 25% of the time in order to be fully understood. Patient has completed LSVT-LOUD therapy for vocal loudness for Parkinson's disease previously and understands the basics. He desires to return to post-treatment level of communication. He will be seen for direct Speech Therapy for 3x weekly for two weeks, then twice weekly for two weeks, for instruction of home exercise program which must be completed 5-6 days w
--- NOTE | 2023-09-30 15:54 | OPREHPOC ---
Outpatient Therapy Plan of Care This is a Multidisciplinary Plan of Care that may contain components documented by all disciplines (PT, OT, and ST.) PT Problem 1 PT Problem #1 Knowledge Deficit PT Goal 1 Goal *indep with HEP PT Problem 2 PT Problem #2 Pain PT Goal 1 Goal * monitor back pain during sessions PT Problem 3 PT Problem #3 Impaired Flexibility PT Goal 1 Goal improve hip and trunk flexibility to improve standing position and posture anterior hip-quad length with supine and leg over edge of mat, knee flexion to 105' 1* R 2 * L hamstring length with supine SLR to 55' 3* R 4* L PT Problem 4 PT Problem #4 Impaired Functional Mobility PT Goal 1 Goal improve LE strength and balance, to decrease risk for falls and improve mobility skills: 1* pt perform supine bridge x 20 reps with good hip control 2* 5 reps sit/stand time of 14 seconds with good control of transfer 3* pt transfer sit/stand with correct technique without verbal reminders 4* 2 minute walking test distance of 450' 5* with 2 minute walking test, pt have heel strike 50% of walking time 6* Camejo balance score of 52/[address] Problem #[address] Goal 1 Goal 1. Demonstrate good understanding of anatomy and physiology of voice and how to produce loud, acceptable voice. 2. State goals of loud therapy and why we need to focus on loudness in order to produce acceptable loudness. Target Visit [address] Problem #[address] Goal 1 Goal 1. Sustain loud ah sound with 80+decibels and for up to 15 seconds 90% of the time. 2. Imitate words/sentences with 78+ decibels 90% of the time. 3. Orally read words/sentences with 78+ decibels 90% of the time. 4. Participate in conversation with 78+ decibels
--- NOTE | 2023-09-30 15:54 | PTOPEVAL1 ---
Assessment and note entered by Kay Munoz, PT Evaluation Information Assessment Status Evaluation Diagnosis Parkinson's, falls, decreased walking balance Onset October 2022 Subjective Information having more problems with walking due to freezing; have made a change in Parkinson's meds, about 3 weeks ago, reduced dose due to having more tremors and side effects; still have the same amount of freezing; have had 3-4 falls in the past 6 months--tripping over something on the floor- carpet or when rushing and walking; Activity: use wheeled walker most of the time, sometimes use quad cane for short distances or in home; doing [employer] boxing 2x/wk, [employer] chair exercises and spinning 2x/wk; walking outside when weather is nice ~ 20-25 minutes; have stairs at home, go down backwards and do not carry anything- have 1 railing--feel doing OK on stairs; Goal: reduce freezing and balance better with walking; Reported Pain Level Pain Score 0: Self Report Pain Score 0: Self Report Additional Pain Score Comments at rest no pain in back; when stand up straight 4/ 10 pain, nagging in back; Assessment PT Clinical Summary Arthur has the diagnosis of Parkinson's Disease, falls, decreased balance. He reports being active and has had 4-5 falls in the past 6 months with walking. With the evaluation: 5 reps sit/stand time 15 seconds and unsteady; TUG 16 seconds with wheeled walker; unsafe transfer sit/stand; poor gait pattern with the wheeled walker; stand posture of flexion trunk, hips and knees; tightness over hamstrings and anterior hip-quad; Camejo balance score of 47/56. Skilled PT services are indicated for therapeutic exercises and activities to increase LE strength, flexibility of hips and knees, balance and mobility skills, with education for safety and HEP . Plan of Care Interventions Gait Training,Neuro Re-education,Therapeutic Activities,Therapeutic Exercise PT Services Indicated Ye
--- NOTE | 2023-10-19 16:04 | PTOPDC ---
Assessment and note entered by Kay Munoz, PT Discharge Information Assessment Status Discharge Diagnosis Parkinson's, falls, decreased walking balance Onset October 2022 Subjective Information has not had any falls, is doing the exercises at home, boxing class and gym weights; Reported Pain Level Pain Score 2: Self Report back pain Assessment PT Clinical Summary Arthur has received 7 PT sessions. Compared to the initial evaluation: increase flexibility of R and L hamstrings and anterior hip /quads; increase hip extension strength with bridge in supine; 5 reps sit/stand time improved by 1 sec and control of motions; 2 minute walking test distance 25' less but did not have any loss of balance with the walking time; Camejo balance score 1 point less--had loss of balance with 360' turn and needed assist to regain balance; he has not had any falls, education completed for HEP. The goals were partially met. Discharge PT services. He is to continue HEP. Plan of Care PT Services Indicated No
--- NOTE | 2023-11-12 15:38 | STOPDC ---
Assessment and note entered by VALENTINE Ferro Evaluation Information Assessment Status Discharge Reported Pain Level Pain Score 0: Self Report Assessment ST Clinical Summary The patient was seen for a voice evaluation and eight treatment sessions focusing on vocal loudness secondary to Parkinson's disease. Patient's speech subjectively has been judged to be slightly softer than average with fast rate of speech noted. 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 Patient was asked to schedule three times a week for two weeks, and then twice a week for two weeks to ensure appropriate reinforcement in the initial period however patient only scheduled twice weekly for two weeks. He then missed two weeks as he was not on the Speech Therapy schedule but did agree to return for the last two weeks of treatment. Patient was judged to participate well in structured therapy tasks. In general his conversational speech was intelligible with adequate loudness however during each session there were at least 2-3 occasions of fast speech with reduced loudness and intelligibility that required patient to repeat himself. He is being discharged with goals essentially achieved except for sustaining ah sound for 15 seconds; he was asked to continue to address that at home. Patient's conversational loudness averaged 73 decibels which is within functional limits in the speech therapy room, in spite of goal to average 78 decibels (set up in order to increase patient's effort and self awareness of loudness). He is being discharged with home program established. Plan of Care ST Services Indicated No
== END 2023-11-12 17:09 | disposition home or self-care (01) ==
LOC: ANHST 14:30
PROVIDERS: PCP Family Medicine
DX: G20.A1 Parkinson's disease without dyskinesia, without mention of fluctuations (principal); R26.89 Other abnormalities of gait and mobility; R49.0 Dysphonia
CPT/HCPCS: 92507; 92524; 92526; 97110; 97112; 97161; 97530

== ENCOUNTER 2024-01-08 11:18 | Inpatient (IN) | payer MEDICARE, SELFPAY ==
[2024-01-08] VITALS (7 sets, daily range): BP systolic 132–182; BP diastolic 52–66; PULSE 69–82; RESP 18–23; TEMP 36.5–36.7; O2SAT 92–98; BMI 38.8
--- NOTE | ~2024-01-08 | XR_ITS ---
EXAM: XR knee RT 3V, XR knee LT 3V DATE: 01/09/2024 19:04 HISTORY: pain, altered ambulation . COMPARISON: 04/25/2022. FINDINGS: Decreased mineralization. No fracture or dislocation. No lytic or blastic lesion. Medial a nd lateral joint space narrowing, mild on the right and moderate on the left. Mild and moderate degre es of osteophytosis, most pronounced in the right knee. Moderate right and small left knee joint effu sions. Bilateral patellar enthesopathy. No erosion or periosteal change. Soft tissues within normal l imits. IMPRESSION: No acute osseous finding in the knees. Moderate bilateral knee osteoarthritis. Reviewed, dictated and finalized at location K. IMPRESSION: No acute osseous finding in the knees. Moderate bilateral knee oste oarthritis.
--- NOTE | ~2024-01-08 | US_ITS ---
EXAMINATION: US venous doppler LE RT DATE: 01/08/2024 14:44 INDICATION: Right lower limb pain and inability to ambulate TECHNIQUE: Grayscale ultrasound images without and with compression and Doppler ultrasound images of the right lower extremity veins were obtained. COMPARISON: None. FINDINGS: The visualized portions of right common femoral vein, profunda (deep) femoral vein, femoral vein, pop liteal vein, posterior tibial veins, peroneal veins, gastrocnemius vein and greater saphenous vein ou tflow are patent. IMPRESSION: 1. No deep venous thrombosis in the right lower limb. Reviewed, dictated and finalized at location A.
--- NOTE | ~2024-01-08 | XR_ITS ---
EXAMINATION: XR lg joint inject/asp w image DATE: 01/12/2024 11:41 INDICATION: Inflammatory arthritis. TECHNIQUE: A time-out was performed to verify the patient's name, date of , and procedure to b e performed. The procedure including the risks, benefits, and alternatives was discussed with the pat ient. Risks discussed included bleeding and infection. The patient understood the risks and agreed to proceed. The skin overlying the right hip joint was prepped and draped in usual sterile fashion. A nesthetic was administered with 1% lidocaine subcutaneously. An 18-gauge needle was advanced under fl uoroscopic guidance into the joint. Fluid was aspirated. The needle was removed and the entry site wa s cleaned and dressed. There were no immediate complications. Fluoroscopy exposure time was 0.1 les justyn. The total number of images was 1. FINDINGS: Real-time fluoroscopy demonstrates the needle in the right hip joint. IMPRESSION: 1. Fluoroscopy guided right hip joint aspiration yielding 2 mL yellow fluid. Reviewed, dictated and finalized at location A.
--- NOTE | ~2024-01-08 | XR_ITS ---
EXAMINATION: XR wrist RT min 3V DATE: 01/11/2024 10:15 INDICATION: Right wrist pain and swelling TECHNIQUE: Posteroanterior, ulnar deviation, oblique, and lateral views of the right wrist were obtai chiki. COMPARISON: none FINDINGS: There is increased lunocapitate angle of 36 degrees and decreased scapholunate angle of 15 degrees co nsistent with volar intercalated segment instability (VISI). No fracture. Polyarticular osteoarthriti s at the right wrist and visualized hand, severe at the triscaphe joint, moderate severity at the dis usman radioulnar, wrist, first carpal metacarpal, first-third metacarpophalangeal and first interphalan geal joints. Mild osteoarthritis at the midcarpal and remaining interphalangeal joints. IMPRESSION: 1. Volar intercalated segment instability (VISI) with increased lunocapitate and decreased scapholuna te angles. When 2. Moderate to severe polyarticular osteoarthritis at the right hand and wrist. Reviewed, dictated and finalized at location B. IMPRESSION: 1. Volar intercalated segment instability (VISI) with increased lunocapitate an d decreased scapholunate angles. When 2. Moderate to severe polyarticular osteoarthritis at the right hand and wrist.
--- NOTE | ~2024-01-08 | MR_ITS ---
EXAMINATION: MR lumbar spine wo/w con DATE: 01/12/2024 10:16 INDICATION: Hip pain. TECHNIQUE: Magnetic resonance imaging (MRI) of the lumbar spine was performed without and with 20 mL MultiHance intravenous contrast. COMPARISON: None FINDINGS: There is 13 degrees levoscoliosis of lumbar spine. There is mild chronic anterior wedging o f T12 vertebral body. There is severely decreased disc height from L1-L2 through L5-S1 with endplate remodeling. The distal spinal cord signal intensity is normal. The conus medullaris is at L1. The fol lowing disc levels are specifically discussed: L1-L2: The disc is bulging and has an annular fissure. There is severe bilateral facet joint osteoart hritis. There is moderate bilateral neural foraminal stenosis. There is mild central canal stenosis. L2-L3: The disc is bulging and has an annular fissure. There is severe bilateral facet joint osteoart hritis. There is moderate bilateral neural foraminal stenosis. There is mild central canal stenosis. L3-L4: The disc is bulging and has an annular fissure. There is severe bilateral facet joint osteoart hritis. There is mild bilateral neural foraminal stenosis. There is mild central canal stenosis. L4-L5: The disc is bulging and has an annular fissure. There is severe bilateral facet joint osteoart hritis. There is mild bilateral neural foraminal stenosis. There is mild central canal stenosis. L5-S1: The disc is bulging with superimposed central extrusion. There is severe bilateral facet joint osteoarthritis. There is moderate bilateral neural foraminal stenosis. There is mild central canal s tenosis. IMPRESSION: 1. Severe lumbar spondylosis. 2. Lumbar levoscoliosis. Reviewed, dictated and finalized at location A.
--- NOTE | ~2024-01-08 | CT_ITS ---
EXAMINATION: CT pelvis wo con DATE: 01/08/2024 12:47 INDICATION: Right hip pain. TECHNIQUE: Computed tomography (CT) of the pelvis was performed without intravenous contrast. Automat ed exposure control and iterative reconstruction technique were employed. The dose-length product was 809.90 mGy-cm. COMPARISON: CT abdomen and pelvis 04/22/2018, radiographs 01/08/2024 FINDINGS: There is a left inguinal hernia containing fat. There are no pathologically enlarged lymph nodes. There is no free intraperitoneal fluid. Bone alignment is normal. No fracture. There is severe lumbar spondylosis. There is moderate osteoarthritis of the hips. IMPRESSION: 1. Moderate osteoarthritis of the hips. 2. Left inguinal hernia containing fat. Reviewed, dictated and finalized at location A.
--- NOTE | ~2024-01-08 | XR_ITS ---
EXAMINATION: XR md joint inject/asp w image DATE: 01/12/2024 11:42 INDICATION: Inflammatory arthritis. TECHNIQUE: A time-out was performed to verify the patient's name, date of , and procedure to b e performed. The procedure including the risks, benefits, and alternatives was discussed with the pat ient. Risks discussed included bleeding and infection. The patient understood the risks and agreed to proceed. The skin overlying the right radioscaphoid joint was prepped and draped in usual sterile f ashion. Anesthetic was administered with 1% lidocaine subcutaneously. An 18 gauge needle was advanc ed under fluoroscopic guidance into the joint. 1 mL Omnipaque 240 was injected that was extra-articul ar. The needle was adjusted, and fluid was aspirated. The needle was removed and the entry site was c leaned and dressed. There were no immediate complications. Fluoroscopy exposure time was 0.1 minutes . The total number of images was 1. FINDINGS: Real-time fluoroscopy demonstrates the needle in the radioscaphoid joint. IMPRESSION: 1. Fluoroscopy guided right radioscaphoid joint aspiration yielding 2 mL serosanguineous fluid. Reviewed, dictated and finalized at location A. IMPRESSION: 1. Fluoroscopy guided right radioscaphoid joint aspiration yielding 2 mL serosa nguineous fluid.
--- NOTE | ~2024-01-08 | XR_ITS ---
EXAMINATION: XR hip RT 2V w AP pelvis DATE: 01/08/2024 11:48 INDICATION: Right hip pain. Fall. TECHNIQUE: An anteroposterior view of the pelvis on 2 radiographs and 2 views of right hip were obtai chiki. COMPARISON: Pelvis radiograph 02/18/2022 FINDINGS: Bone alignment is normal. No fracture. There is severe lumbar spondylosis. There is mild os teoarthritis of the hips. IMPRESSION: 1. Mild osteoarthritis of the hips. Reviewed, dictated and finalized at location A.
--- NOTE | 2024-01-08 11:47 | ED.LOWEXIN ---
HPI - Extremity Injury (Lower) General Chief Complaint: Extremity Injury, Lower <TIFFANIE Osuna Last Filed: 01/08/24 16:31> Stated Complaint: Hip pain <TIFFANIE Osuna Last Filed: 01/08/24 16:31> Time Seen by Provider: 01/08/24 11:25 <TIFFANIE Osuna Last Filed: 01/08/24 16:31> Source: patient <TIFFANIE Osuna Last Filed: 01/08/24 16:31> Mode of arrival: EMS <TIFFANIE Osuna Last Filed: 01/08/24 16:31> Limitations: no limitations <TIFFANIE Osuna Last Filed: 01/08/24 16:31> History of Present Illness HPI Narrative: Patient is a 73 year old male, with PMH of Parkinson's Disease, who presents the ED via EMS with report of right hip pain. Patient reports he fell 2 weeks ago with shower and landed on his right side. He has some pain in his right hip then, but was able to ambulate. He then stood up from his computer chair today and felt a pain in his right hip. Was unable to ambulate due to the pain. EMS was then called. Denies any other injuries. Denies numbness. Patient is not on any blood thinners. <TIFFANIE Osuna Last Filed: 01/08/24 16:31> Related Data Home Medications: Home Medications Medication Instructions Recorded Confirmed amantadine HCl 100 mg capsule 100 mg PO TID 09/29/22 01/08/24 pramipexole 1 mg tablet (Mirapex) 1 mg PO TID 09/29/22 01/08/24 Vitamin B-12 1,000 mg PO DAILY 01/16/23 01/08/24 finasteride 5 mg tablet 5 mg PO QHS 07/29/23 01/08/24 gabapentin 600 mg tablet 600 mg PO QHS 07/29/23 01/08/24 calcium polycarbophil 625 mg 1,250 mg PO DAILY 10/26/23 01/08/24 tablet (FiberCon) carbidopa 25 mg-levodopa 250 mg 2.5 tablet PO QID 10/26/23 01/08/24 tablet atomoxetine 25 mg capsule 50 mg PO DAILY 01/08/24 01/08/24 fluticasone propionate 50 2 spray intranasal DAILY PRN 01/08/24 01/08/24 mcg/actuation nasal allergies spray,suspension (Flonase Allergy Relief) tizanidine 4 mg tablet 4 mg PO BID muscle spasticity 01/08/24 01/08/24 trazodone 100 mg tablet 100 mg PO QHS 01/08/24 01/08/24 <Renetta Hernandez PA-C - Last Filed: 01/08/24 16:31> Allergies/Adverse Reactions: Allergies Allergy/AdvReac Type Severity Reaction Status Date / Time No Known Allergies Allergy Verified 12/30/23 13:28 <Renetta Hernandez PA-C - Last Filed: 01/08/24 16:31> Review of Systems Review of Systems: CONSTITUTIONAL: Denies fever, chills, or sweats. CARDIOVASCULAR: Denies chest pain. RESPIRATORY: Denies dyspnea. GASTROINTESTINAL: Denies abdominal pain, nausea, vomiting. MUSCULOSKELETAL: See HPI. NEUROLOGIC: Denies headache, dizziness, numbness, or weakness. <Renetta Hernandez PA-C - Last Filed: 01/08/24 16:31> All systems reviewed & are unremarkable except as noted in HPI and below <Renetta Hernandez PA-C - Last Filed: 01/08/24 16:31> [facility] Past Medical History Medical History: Medical History Asthma Body mass index (bmi) 39.0-39.9, adult (01/20/18) Body mass index (BMI) 40.0-44.9, adult (07/29/18) Encounter for other specified surgical aftercare Esophageal reflux Extrinsic asthma, unspecified Lymphedema Non-recurrent bilateral inguinal hernia without obstruction or gangrene KYLE on CPAP Parkinson disease <Renetta Hernandez PA-C - Last Filed: 01/08/24 16:31> Surgical History Surgical History: Surgical History History of ear surgery (~11/2017) Implant - Lt Ear History of removal of cyst (~07/29/17) Rt Testicle History of surgery on arm (~1998) Muscle Tear - Rt History of tooth extraction <Renetta Hernandez PA-C - Last Filed: 01/08/24 16:31> Family History Family History: Family History Father Diabetes mellitus Mother Hy
[2024-01-08] MEDS: MORPHINE SULFATE (*CRX) 4 MG/ML INJ IV PUSH (12:08)
[2024-01-08] MEDS: ONDANSETRON INJ 4 MG/2 ML VIAL IV PUSH (12:08)
[2024-01-08] MEDS: ACETAMINOPHEN 500 MG TABLET 1000 MG PO (14:35)
[2024-01-08 14:52] LABS: Basophils Percent Auto 0.4 % (0.2-1.2); Eosinophils Absolute Auto 0.2 K/mm3 (0-0.3); Eosinophils Percent Auto 1.6 % (0-4.4); Hematocrit 40.6 % (42.0-52.0); Hemoglobin 13.2 g/dL (14.0-18.0); Immature Granulocyte Absolute 0.05 K/mm3 (0.00-0.031); Immature Granulocyte Percent A 0.5 % (0-0.5); Lymphocytes Absolute Auto 1.17 K/mm3 (0.9-3.2); Lymphocytes Percent Auto 11.3 % (18.3-44.2); Mean Corpuscular HGB Conc 32.5 g/dl (32-36); Mean Corpuscular Hemoglobin 29.3 pg (26-34); Mean Platelet Volume 11.2 fl (7.4-10.4); Monocytes Absolute Auto 0.8 K/mm3 (0.1-0.6); Monocytes Percent Auto 7.7 % (2.6-8.5); Neutrophils Absolute Auto 8.1 K/mm3 (1.3-6.7); Neutrophils Percent Auto 78.5 % (45.5-73.1); Platelet Count Result 173 k/mm3 (150-375); Red Blood Count 4.51 M/mm3 (4.6-6.20); Red Cell Distribution Width 13.2 % (11.5-14.5); White Blood Count 10.3 K/mm3 (4.5-10.0)
[2024-01-08 15:02] LABS: Alanine Aminotransferase 6 U/L (6-50); Albumin Level 4.1 g/dL (3.5-5.1); Alkaline Phosphatase 74 U/L (38-126); Anion Gap 6 mmol/L (4-12); Aspartate Amino Transferase 23 U/L (17-59); Bilirubin,Total 0.9 mg/dL (0.2-1.3); Blood Urea Nitrogen 17 mg/dL (9-20); Carbon Dioxide 28 mmol/L (22-30); Chloride 105 mmol/L (98-107); Estimated CRCL calculation 85 ml/min; Estimated Glomerular Filt Rate > 60; Glucose 102 mg/dL (65-110); Potassium 3.7 mmol/L (3.4-5.0); Sodium 139 mmol/L (137-145)
[2024-01-08 15:04] LABS: INR 1.1; Prothrombin Time 14.3 Seconds (11.1-14.7)
[2024-01-08 15:05] LABS: Partial Thromboplastin Time 33.4 Seconds (22.3-36.8)
--- NOTE | 2024-01-08 20:15 | PM.IMHP ---
H&P: HPI History of Present Illness Date/Time: 01/09/24 00:15 Chief Complaint: R Hip Pain Narrative: 73 y/o M presents here with right hip pain with PMH of asthma, GERD, lymphedema, KYLE on CPAP, and Parkinson's. Patient presented here from home for further evaluation of right hip pain. Patient reports that he stood up from his computer chair today and felt pain in his right hip and was unable to ambulate due to the pain. Patient describes the pain as sharp, nonradiating, constant, aggravated by movement, and alleviated by rest. Patient is normally ambulatory with a assistive device. He does report that he had a fall 2 weeks ago while in the shower. States that he fell onto his right side, no LOC, no head strike, and reporting pain post fall to his right hip. Patient was able to ambulate despite pain without difficulty. Denies any pain in right hip up until today after the fall. Denies numbness or tingling to the affected extremity. Patient currently lives at home with his , she expressed concerns to the ED provider that she would be unable to take care of the patient given that he is now not ambulatory. Initial VS at presentation: 98.0? F, HR 76, RR 18, 157/53, and 92% on RA. ED workup showed: WBC 10.3, hemoglobin 13.2, no electrolyte derangements, creatinine 0.8 and GFR >60. XR of the right hip/pelvis shows mild osteoarthritis of the hips. CT of the pelvis showed moderate osteoarthritis of the hips and had left inguinal hernia containing fat. US of the RLE showed no DVT. Review of Systems Review of Systems: All systems reviewed & are unremarkable except as noted in HPI and below [facility] Past Medical History Medical History Asthma Encounter for other specified surgical aftercare Esophageal reflux Extrinsic asthma, unspecified Lymphedema Non-recurrent bilateral inguinal hernia without obstruction or gangrene KYLE on CPAP Parkinson disease Surgical History Surgical History History of ear surgery (~11/2017) Implant - Lt Ear History of removal of cyst (~07/29/17) Rt Testicle History of surgery on arm (~1998) Muscle Tear - Rt History of tooth extraction Family History Family History Father Diabetes mellitus Mother Hypertension Family history of kidney disease Family history of renal failure Sibling Asthma Family history of malignant neoplasm Family history of seizure disorder Family history of sudden , Onset Age: 57 Family history of congestive heart failure, Onset Age: 57 Protein S deficiency Social History Social History Smoking status: Never smoker Second hand tobacco smoke exposure: No Alcohol intake: never Substance use: never Substance use type: does not use Do You Feel Safe in your Home?: Yes Lack of Transportation: No Lack of Food: Never True Current Housing: I Have Housing Concerned About Future Housing: No Difficulty Paying Gas/Electric Bills: No Difficulty Paying for Meds: No Currently Unemployed: No Education: High School Diploma/GED Difficulty w/ Childcare or Family Care: No Spiritual care concerns: No Meds Home Medications and Allergies Home Medications Medication Instructions Recorded Confirmed Type amantadine HCl 100 mg capsule 100 mg PO TID 09/29/22 01/08/24 History pramipexole 1 mg tablet (Mirapex) 1 mg PO TID 09/29/22 01/08/24 History Vitamin B-12 1,000 mg PO DAILY 01/16/23 01/08/24 History finasteride 5 mg tablet 5 mg PO QHS 07/29/23 01/08/24 History gabapentin 600 mg tablet 600 mg PO QHS 07/29/23 01/08/24 History omeprazole 40 mg capsule,delayed See Rx Instructions .Route 09/03/23 01/08/24 Rx release .COMPLEX #90 caps calcium polycarbophil 625 mg 1,250 mg PO DAILY 10/26/23
[2024-01-08] MEDS: ACETAMINOPHEN 325 MG TABLET 650 MG PO (20:32)
[2024-01-08] MEDS: GABAPENTIN 300 MG CAPSULE 600 MG PO (21:14)
[2024-01-08] MEDS: FINASTERIDE 5 MG TABLET PO (21:14)
[2024-01-08] MEDS: traZODone HCL 50 MG TABLET 100 MG PO (21:14)
[2024-01-08] MEDS: CARBIDOPA PO (21:39)
[2024-01-08] MEDS: LEVODOPA PO (21:39)
[2024-01-08] MEDS: CARBIDOPA/LEVODOPA 25/250 MG TABLET 2 TABLET PO (21:39)
[2024-01-09 02:20] VITALS: RESP 16
[2024-01-09 04:35] VITALS: BP 158/58; PULSE 74; RESP 16; TEMP 37.1; O2SAT 94
[2024-01-09] MEDS: PANTOPRAZOLE 40 MG TABLET PO (09:08)
[2024-01-09] MEDS: CYANOCOBALAMIN 1,000 MCG TABLET 1000 MCG PO (09:08)
[2024-01-09] MEDS: LEVODOPA PO ×4 (09:09→21:15)
[2024-01-09] MEDS: CARBIDOPA PO ×4 (09:09→21:15)
[2024-01-09] MEDS: TIZANIDINE HCL 4 MG TABLET PO ×2 (09:09→17:10)
[2024-01-09] MEDS: AMANTADINE HCL 100 MG CAPSULE PO ×3 (09:09→17:10)
[2024-01-09] MEDS: PRAMIPEXOLE 1 MG TABLET PO ×3 (09:09→17:10)
[2024-01-09] MEDS: CARBIDOPA/LEVODOPA 25/250 MG TABLET 2 TABLET PO ×4 (09:09→21:15)
[2024-01-09] MEDS: calcium polycarbophiL 625 MG TABLET 1250 MG PO (09:10)
[2024-01-09] MEDS: HYDROcodone/acetaminophen (*CRX) 5-325 MG TABLET 1 TAB PO (09:25)
--- NOTE | 2024-01-09 10:52 | PM.IMPN ---
Progress Note: A&P Assessment and Plan (1) Acute pain of right hip: Code(s): M25.551 - Pain in right hip Status: Acute Assessment and Plan: - XR hip/pelvis: 1. Mild osteoarthritis of the hips. - CT pelvis: 1. Moderate osteoarthritis of the hips. 2. Left inguinal hernia containing fat. - US RLE: 1.? No deep venous thrombosis in the right lower limb. - no assistive device at baseline - PT/OT eval and treat - care coordination consulted for acute rehab consult - pain management - ambulate with assistance and fall precautions - continue home gabapentin 01/08: - patient with significant tremors, we will attempt to get patient back on his usual dosing schedule for his medications - significant right hip pain radiating down to both knees. Ordered additional dose of IV morphine to help control pain. - Will x-ray knees - neurology consulted to determine if MRI brain or spine might be indicated (2) Parkinson disease: Qualifiers: Dyskinesia presence: unspecified whether dyskinesia Fluctuating manifestations: unspecified whether manifestations fluctuate Qualified Code(s): G20.A1 - Parkinson's disease without dyskinesia, without mention of fluctuations Code(s): G20 - Parkinson's disease Status: Acute Assessment and Plan: - continue home medications: amantadine, atomoxetine, sinemet, miraprex 01/08: - medication timing is off will work with patient and to reschedule medications to timing - neurology consulted as well-- appreciate assistance in managing this patient situation (3) KYLE on CPAP: Code(s): G47.33 - Obstructive sleep apnea (adult) (pediatric); Z99.89 - Dependence on other enabling machines and devices Status: Acute Assessment and Plan: - continue home cpap Plan Patient mobility significantly hampered by primarily right lower extremity pain but also pain to the left knee. Gross tremors significantly over baseline. Will work with patient and pharmacy to re-time medications appropriately and consult Neurology for assistance. Additional pain control as needed. Patient presentation appears to resemble a right hip or pelvic fracture but imaging is negative thus far. Diet: Regular GI Prophylaxis: P.o. pantoprazole DVT Prophylaxis: SCDs Lines: Peripheral Code Status: Full code Time Spent With Patient Time with patient: Greater than 35 minutes Subjective Date/time seen: 01/09/24 10:52 Interval history: Patient reports that his right hip has been bothering him for a couple weeks but suddenly yesterday he was unable to stand on it due to pain that he reports is mostly in his inner groin but also radiates down his leg. He denies back pain. Denies bowel or bladder dysfunction, fever chills. Patient reports that generally he is independent and able to care for himself even drive. He reports that this is a sudden change. X-ray of the hip was unremarkable except for arthritis CT scan of the pelvis also shows arthritis. PT OT consulted. Ordered pain control. Patient does have Parkinson's and his medication schedule is off timing at the moment. He does have gross tremors noted to all 4 extremities. Usually he is independent but is heavy assist of 2 staff to stand. Will consult Neurology to see if any additional imaging such as MRI of the brain or spine may be indicated. we will also attempt to get patient back on a usual schedule regarding medication dosing. Review of Systems Review of Systems: All systems reviewed & are unremarkable except as noted in HPI and below Exam Const: General: no acute distress Other: , male, elderly, nontoxic appearance HENMT: Face/Nose/Sinus: Normal nares present Mouth: Yes moist mucous membranes Other: CPAP in place Eyes: General: appearance normal, both eyes and all related structures Sclera: sclerae normal Pupils: Equal, round and reactive pupils present EOM: EOMs intact bila
--- NOTE | 2024-01-09 13:22 | PHAR ---
Pharmacy verified home med: * Use From Home * Atomoxetine 25 mg capsule Take 2 capsules by mouth once daily
[2024-01-09 17:07] VITALS: PULSE 108; RESP 40; TEMP 37.2; O2SAT 94
[2024-01-09] MEDS: MORPHINE SULFATE (*CRX) 4 MG/ML INJ IV PUSH (17:15)
[2024-01-09 17:52] VITALS: TEMP 37.7
[2024-01-09] MEDS: ACETAMINOPHEN 325 MG TABLET 650 MG PO (17:52)
[2024-01-09 19:20] VITALS: BP 134/67; PULSE 93; RESP 18; TEMP 36.3; O2SAT 92
[2024-01-09] MEDS: FINASTERIDE 5 MG TABLET PO (21:13)
[2024-01-09] MEDS: traZODone HCL 50 MG TABLET 100 MG PO (21:13)
[2024-01-09] MEDS: GABAPENTIN 300 MG CAPSULE 600 MG PO (21:14)
[2024-01-10 04:59] LABS: Basophils Percent Auto 0.2 % (0.2-1.2); Eosinophils Absolute Auto 0.1 K/mm3 (0-0.3); Eosinophils Percent Auto 1.1 % (0-4.4); Hematocrit 38.5 % (42.0-52.0); Hemoglobin 12.7 g/dL (14.0-18.0); Immature Granulocyte Absolute 0.04 K/mm3 (0.00-0.031); Immature Granulocyte Percent A 0.4 % (0-0.5); Lymphocytes Absolute Auto 1.03 K/mm3 (0.9-3.2); Lymphocytes Percent Auto 9.2 % (18.3-44.2); Mean Corpuscular Hemoglobin 29.5 pg (26-34); Mean Corpuscular Volume 89.5 fl (80-100); Mean Platelet Volume 11.9 fl (7.4-10.4); Monocytes Absolute Auto 1.6 K/mm3 (0.1-0.6); Monocytes Percent Auto 14.3 % (2.6-8.5); Neutrophils Absolute Auto 8.4 K/mm3 (1.3-6.7); Neutrophils Percent Auto 74.8 % (45.5-73.1); Platelet Count Result 146 k/mm3 (150-375); White Blood Count 11.2 K/mm3 (4.5-10.0)
[2024-01-10 05:10] LABS: Alanine Aminotransferase 8 U/L (6-50); Albumin Level 3.7 g/dL (3.5-5.1); Alkaline Phosphatase 69 U/L (38-126); Anion Gap 4 mmol/L (4-12); Aspartate Amino Transferase 27 U/L (17-59); Bilirubin,Total 1.2 mg/dL (0.2-1.3); Blood Urea Nitrogen 18 mg/dL (9-20); Calcium 8.6 mg/dL (8.4-10.2); Carbon Dioxide 26 mmol/L (22-30); Chloride 106 mmol/L (98-107); Estimated CRCL calculation 97 ml/min; Estimated Glomerular Filt Rate > 60; Glucose 129 mg/dL (65-110); Magnesium 2.1 mg/dL (1.6-2.3); Potassium 3.3 mmol/L (3.4-5.0); Sodium 136 mmol/L (137-145)
[2024-01-10 05:29] VITALS: BP 142/48; PULSE 75; RESP 18; TEMP 36.3; O2SAT 95
[2024-01-10] MEDS: AMANTADINE HCL 100 MG CAPSULE PO ×3 (06:21→17:36)
[2024-01-10] MEDS: LEVODOPA PO ×4 (06:21→20:25)
[2024-01-10] MEDS: CARBIDOPA PO ×4 (06:21→20:25)
[2024-01-10] MEDS: CARBIDOPA/LEVODOPA 25/250 MG TABLET 2 TABLET PO ×4 (06:21→20:24)
[2024-01-10] MEDS: PRAMIPEXOLE 1 MG TABLET PO ×3 (06:22→17:36)
[2024-01-10] MEDS: calcium polycarbophiL 625 MG TABLET 1250 MG PO (08:33)
[2024-01-10] MEDS: POTASSIUM CHLORIDE 20 MEQ ER TABLET 40 MEQ PO (08:33)
[2024-01-10] MEDS: PANTOPRAZOLE 40 MG TABLET PO (08:34)
[2024-01-10] MEDS: CYANOCOBALAMIN 1,000 MCG TABLET 1000 MCG PO (08:34)
[2024-01-10] MEDS: TIZANIDINE HCL 4 MG TABLET PO ×2 (08:34→17:36)
[2024-01-10] MEDS: WATER FOR IRRIGATION, STERILE 1,000 ML BOTTLE 1000 ML (08:36)
[2024-01-10] MEDS: ENTACAPONE 200 MG TABLET PO ×4 (10:11→20:27)
--- NOTE | 2024-01-10 10:17 | PM.IMPN ---
Progress Note: A&P Assessment and Plan (1) Acute pain of right hip: Code(s): M25.551 - Pain in right hip Status: Acute Assessment and Plan: - XR hip/pelvis: 1. Mild osteoarthritis of the hips. - CT pelvis: 1. Moderate osteoarthritis of the hips. 2. Left inguinal hernia containing fat. - US RLE: 1.? No deep venous thrombosis in the right lower limb. - no assistive device at baseline - PT/OT eval and treat - care coordination consulted for acute rehab consult - pain management - ambulate with assistance and fall precautions - continue home gabapentin 01/08: - patient with significant tremors, we will attempt to get patient back on his usual dosing schedule for his medications - significant right hip pain radiating down to both knees. Ordered additional dose of IV morphine to help control pain. - Will x-ray knees - neurology consulted to determine if MRI brain or spine might be indicated 01/09: Hip not hurting while in bed, has not tried to get up yet today. Nursing staff instructed to help patient get up to chair. (2) Parkinson disease: Qualifiers: Dyskinesia presence: unspecified whether dyskinesia Fluctuating manifestations: unspecified whether manifestations fluctuate Qualified Code(s): G20.A1 - Parkinson's disease without dyskinesia, without mention of fluctuations Code(s): G20 - Parkinson's disease Status: Acute Assessment and Plan: - continue home medications: amantadine, atomoxetine, sinemet, miraprex 01/08: - medication timing is off will work with patient and to reschedule medications to timing - neurology consulted as well-- appreciate assistance in managing this patient situation 01/09: -gross tremors continue, still awaiting Neurology consult. Restart entacapone in the mean time (3) KYLE on CPAP: Code(s): G47.33 - Obstructive sleep apnea (adult) (pediatric); Z99.89 - Dependence on other enabling machines and devices Status: Acute Assessment and Plan: - continue home cpap Plan Patient mobility significantly hampered by primarily right lower extremity pain but also pain to the left knee. Gross tremors significantly over baseline. Will work with patient and pharmacy to re-time medications appropriately and consult Neurology for assistance. Additional pain control as needed. Patient presentation appears to resemble a right hip or pelvic fracture but imaging is negative thus far. Now right wrist is painful, ordered brace. Patient unable to return home, will need SNF vs acute rehab on discharge, case management will be consulted. Diet: Regular GI Prophylaxis: P.o. pantoprazole DVT Prophylaxis: SCDs Lines: Peripheral Code Status: Full code Time Spent With Patient Time with patient: Greater than 35 minutes Subjective Date/time seen: 01/10/24 10:17 Interval history: 01/08: Patient reports that his right hip has been bothering him for a couple weeks but suddenly yesterday he was unable to stand on it due to pain that he reports is mostly in his inner groin but also radiates down his leg. He denies back pain. Denies bowel or bladder dysfunction, fever chills. Patient reports that generally he is independent and able to care for himself even drive. He reports that this is a sudden change. X-ray of the hip was unremarkable except for arthritis CT scan of the pelvis also shows arthritis. PT OT consulted. Ordered pain control. Patient does have Parkinson's and his medication schedule is off timing at the moment. He does have gross tremors noted to all 4 extremities. Usually he is independent but is heavy assist of 2 staff to stand. Will consult Neurology to see if any additional imaging such as MRI of the brain or spine may be indicated. we will also attempt to get patient back on a usual schedule regarding medication dosing. 01/09: Today patient states he slept well overnight, best night of sleep in a while. However, t
--- NOTE | 2024-01-10 10:52 | WPDNEURCNPN ---
Assessment and Plan Assessment and plan (1) Parkinson disease: Qualifiers: Dyskinesia presence: unspecified whether dyskinesia Fluctuating manifestations: unspecified whether manifestations fluctuate Qualified Code(s): G20.A1 - Parkinson's disease without dyskinesia, without mention of fluctuations Code(s): G20 - Parkinson's disease Status: Acute (2) Lymphedema of both lower extremities: Code(s): I89.0 - Lymphedema, not elsewhere classified Status: Acute (3) Peripheral neuropathy: Code(s): G62.9 - Polyneuropathy, unspecified Status: Acute (4) Primary localized osteoarthritis of knees, bilateral: Code(s): M17.0 - Bilateral primary osteoarthritis of knee Status: Acute (5) Back pain: Code(s): M54.9 - Dorsalgia, unspecified Status: Acute (6) Acute pain of right hip: Code(s): M25.551 - Pain in right hip Status: Acute (7) Unable to ambulate: Code(s): R26.2 - Difficulty in walking, not elsewhere classified Status: Acute Plan 1. Acute right hip pain with negative CT scan of the pelvis except moderate osteoarthritis of the hip joint, 2. Bilateral moderate osteoarthritis of the knees 3. No DVT in the right lower extremity 4. Underlying Parkinson's disease for which he has been followed at the [facility] and taking the medications accordingly 5. Progressive deconditioning for which he needs the ongoing rehab and anti parkinsonian medications are appropriate. He will benefit from the pain medication while particularly his involved in the rehab therapy. No need to adjust any antiparkinson medication discussed with the family as well. Consult date: 01/10/24 HPI: Ori Bernardo is a 73 year old male Admitted to the hospital for the complaints of right hip pain and with information that he fell 2 weeks ago while in the shower landed on his right side though subsequently he was able to ambulate but on day of visit to the ER he felt a pain in his right hip when he stood up from his computer chair he was unable to ambulate due to the pain EMS were called to the scene patient has been receiving multiple medications such as amantadine 100mg 3 times a day pramipexole 1mg 3 times a day finasteride 5mg HS gabapentin 600mg at HS carbidopa levodopa 25/250 2 and half tablets 4 times a day tizanidine 4mg b.i.d. and trazodone 100mg at night. He is not allergic to any medication he has, he does asthma, lymphedema and obstructive sleep apnea he does not drink and is never a smoker, on initial examination in the emergency room he was holding his right lower extreme witty an externally rotated position on with the complaints of discomfort but otherwise exam was unremarkable, he vital signs were normal, he improved with the morphine administration but he was unable to take more than 1 or 2 steps even with walker he was admitted for the physical therapy occupation therapy in acute rehab, initial CBC was normal so as the routine lab, x-ray of the hip and pelvis documented mild osteoarthritis of the hips CT scan of the pelvis documented moderate osteoarthritis of the hip and left in 1 allele hernia he was noted to have dyskinesia. [facility] Past Medical History Medical History Asthma Encounter for other specified surgical aftercare Esophageal reflux Extrinsic asthma, unspecified Lymphedema Non-recurrent bilateral inguinal hernia without obstruction or gangrene KYLE on CPAP Parkinson disease Surgical History Surgical History History of ear surgery (~11/2017) Implant - Lt Ear History of removal of cyst (~07/29/17) Rt Testicle History of surgery on arm (~1998) Muscle Tear - Rt History of tooth extraction Family History Family History Father Diabetes mellitus Mother Hypertension Family history o
[2024-01-10 14:37] VITALS: PULSE 93; RESP 30; TEMP 38; O2SAT 98
[2024-01-10 17:37] VITALS: TEMP 38.8
[2024-01-10] MEDS: ACETAMINOPHEN 325 MG TABLET 650 MG PO (17:37)
[2024-01-10 18:37] VITALS: TEMP 36.4
[2024-01-10] MEDS: GABAPENTIN 300 MG CAPSULE 600 MG PO (20:24)
[2024-01-10] MEDS: FINASTERIDE 5 MG TABLET PO (20:25)
[2024-01-10] MEDS: traZODone HCL 50 MG TABLET 100 MG PO (20:25)
[2024-01-10 21:48] VITALS: PULSE 85; O2SAT 95
[2024-01-10 22:00] VITALS: BP 123/48; PULSE 75; RESP 20; TEMP 36.6; O2SAT 96
[2024-01-11 05:58] LABS: Basophils Percent Auto 0.2 % (0.2-1.2); Eosinophils Absolute Auto 0.2 K/mm3 (0-0.3); Eosinophils Percent Auto 1.8 % (0-4.4); Hematocrit 39.3 % (42.0-52.0); Hemoglobin 12.6 g/dL (14.0-18.0); Immature Granulocyte Absolute 0.04 K/mm3 (0.00-0.031); Immature Granulocyte Percent A 0.4 % (0-0.5); Lymphocytes Absolute Auto 1.01 K/mm3 (0.9-3.2); Lymphocytes Percent Auto 11.3 % (18.3-44.2); Mean Corpuscular HGB Conc 32.1 g/dl (32-36); Mean Corpuscular Volume 90.6 fl (80-100); Mean Platelet Volume 11.9 fl (7.4-10.4); Monocytes Absolute Auto 0.9 K/mm3 (0.1-0.6); Neutrophils Absolute Auto 6.8 K/mm3 (1.3-6.7); Neutrophils Percent Auto 76.3 % (45.5-73.1); Platelet Count Result 152 k/mm3 (150-375); Red Blood Count 4.34 M/mm3 (4.6-6.20); Red Cell Distribution Width 12.6 % (11.5-14.5); White Blood Count 8.9 K/mm3 (4.5-10.0)
[2024-01-11 06:00] VITALS: BP 148/50; PULSE 69; RESP 20; TEMP 36.1; O2SAT 97
[2024-01-11] MEDS: AMANTADINE HCL 100 MG CAPSULE PO ×3 (06:00→17:46)
[2024-01-11] MEDS: CARBIDOPA PO ×4 (06:00→21:04)
[2024-01-11] MEDS: ENTACAPONE 200 MG TABLET PO ×4 (06:00→21:02)
[2024-01-11] MEDS: LEVODOPA PO ×4 (06:00→21:04)
[2024-01-11] MEDS: PRAMIPEXOLE 1 MG TABLET PO ×3 (06:00→17:46)
[2024-01-11] MEDS: CARBIDOPA/LEVODOPA 25/250 MG TABLET 2 TABLET PO ×4 (06:00→21:03)
[2024-01-11 06:08] LABS: Albumin Level 3.6 g/dL (3.5-5.1); Alkaline Phosphatase 66 U/L (38-126); Anion Gap 4 mmol/L (4-12); Aspartate Amino Transferase 30 U/L (17-59); Bilirubin,Total 1.1 mg/dL (0.2-1.3); Blood Urea Nitrogen 15 mg/dL (9-20); Calcium 8.6 mg/dL (8.4-10.2); Carbon Dioxide 26 mmol/L (22-30); Chloride 104 mmol/L (98-107); Estimated CRCL calculation 97 ml/min; Estimated Glomerular Filt Rate > 60; Glucose 121 mg/dL (65-110); Magnesium 2.1 mg/dL (1.6-2.3); Potassium 3.5 mmol/L (3.4-5.0); Sodium 134 mmol/L (137-145)
[2024-01-11 06:13] LABS: Alanine Aminotransferase < 6 U/L (6-50)
[2024-01-11 08:34] VITALS: O2SAT 96
--- NOTE | 2024-01-11 09:40 | PM.IMPN ---
Progress Note: A&P Assessment and Plan (1) Acute pain of right hip: Code(s): M25.551 - Pain in right hip Status: Acute Assessment and Plan: - XR hip/pelvis: 1. Mild osteoarthritis of the hips. - CT pelvis: 1. Moderate osteoarthritis of the hips. 2. Left inguinal hernia containing fat. - US RLE: 1.? No deep venous thrombosis in the right lower limb. - no assistive device at baseline - PT/OT eval and treat - care coordination consulted for acute rehab consult - pain management - ambulate with assistance and fall precautions - continue home gabapentin 01/08: - patient with significant tremors, we will attempt to get patient back on his usual dosing schedule for his medications - significant right hip pain radiating down to both knees. Ordered additional dose of IV morphine to help control pain. - Will x-ray knees - neurology consulted to determine if MRI brain or spine might be indicated 01/09: Hip not hurting while in bed, has not tried to get up yet today. Nursing staff instructed to help patient get up to chair. 01/10: Hip pain improved, elevated ESR/CRP and swollen right wrist. Steroids started. (2) Parkinson disease: Qualifiers: Dyskinesia presence: unspecified whether dyskinesia Fluctuating manifestations: unspecified whether manifestations fluctuate Qualified Code(s): G20.A1 - Parkinson's disease without dyskinesia, without mention of fluctuations Code(s): G20 - Parkinson's disease Status: Acute Assessment and Plan: - continue home medications: amantadine, atomoxetine, sinemet, miraprex 01/08: - medication timing is off will work with patient and to reschedule medications to timing - neurology consulted as well-- appreciate assistance in managing this patient situation 01/09: -gross tremors continue, still awaiting Neurology consult. Restart entacapone in the mean time 01/10: Neurology does not recommend additional imaging. (3) KYLE on CPAP: Code(s): G47.33 - Obstructive sleep apnea (adult) (pediatric); Z99.89 - Dependence on other enabling machines and devices Status: Acute Assessment and Plan: - continue home cpap (4) VISI (volar intercalated segment instability): Code(s): M25.339 - Other instability, unspecified wrist Status: Acute Assessment and Plan: 5/13: Right wrist, finding on XRay, wrist swollen and painful. ESR/CRP also elevated. Ordered steroids. Plan Ortho consult for Volar intercalated segment instability found right wrist on xray Steroids started for elevated ESR/CRP, right wrist swollen Patient still unable to rise from a seated position and ambulate. Instead of being the right hip or knees it is due to the right wrist at this time. Diet: Regular GI Prophylaxis: P.o. pantoprazole DVT Prophylaxis: SCDs Lines: Peripheral Code Status: Full code Time Spent With Patient Time with patient: Greater than 35 minutes Subjective Date/time seen: 01/11/24 09:40 Interval history: 01/08: Patient reports that his right hip has been bothering him for a couple weeks but suddenly yesterday he was unable to stand on it due to pain that he reports is mostly in his inner groin but also radiates down his leg. He denies back pain. Denies bowel or bladder dysfunction, fever chills. Patient reports that generally he is independent and able to care for himself even drive. He reports that this is a sudden change. X-ray of the hip was unremarkable except for arthritis CT scan of the pelvis also shows arthritis. PT OT consulted. Ordered pain control. Patient does have Parkinson's and his medication schedule is off timing at the moment. He does have gross tremors noted to all 4 extremities. Usually he is independent but is heavy assist of 2 staff to stand. Will consult Neurology to see if any additional imaging such as MRI of the brain or spine may be indicated. we will also attempt to get patient back o
[2024-01-11] MEDS: PANTOPRAZOLE 40 MG TABLET PO (09:52)
[2024-01-11] MEDS: calcium polycarbophiL 625 MG TABLET 1250 MG PO (09:52)
[2024-01-11] MEDS: TIZANIDINE HCL 4 MG TABLET PO ×2 (09:52→17:46)
[2024-01-11] MEDS: CYANOCOBALAMIN 1,000 MCG TABLET 1000 MCG PO (09:52)
[2024-01-11] MEDS: HYDROcodone/acetaminophen (*CRX) 5-325 MG TABLET 1 TAB PO (09:59)
[2024-01-11 10:38] LABS: Erythrocyte Sedimentation Rate 54 mm/hr (0-20)
[2024-01-11 11:25] LABS: CRP 23.1 mg/dL (<1.0); Uric Acid 4.6 mg/dL (3.5-8.5)
[2024-01-11] MEDS: methylPREDNISolone SOD SUCC 125 MG VIAL 80 MG IV PUSH (12:58)
[2024-01-11 14:00] VITALS: BP 163/59; PULSE 84; RESP 18; TEMP 36.8; O2SAT 95
[2024-01-11 14:09] LABS: Procalcitonin 1.1 ng/mL
--- NOTE | 2024-01-11 19:18 | WPDNEUROPN ---
Progress Note: A&P Assessment and Plan (1) Parkinson disease: Qualifiers: Dyskinesia presence: unspecified whether dyskinesia Fluctuating manifestations: unspecified whether manifestations fluctuate Qualified Code(s): G20.A1 - Parkinson's disease without dyskinesia, without mention of fluctuations Code(s): G20 - Parkinson's disease Status: Acute (2) Obstructive sleep apnea (adult) (pediatric): Code(s): G47.33 - Obstructive sleep apnea (adult) (pediatric) Status: Acute (3) Sciatica: Code(s): M54.30 - Sciatica, unspecified side Status: Acute (4) Acute pain of right hip: Code(s): M25.551 - Pain in right hip Status: Acute Plan The pain in the right hip could originate from the right hip itself or could also in the area. He is able to move the hip around the right hip and did not have any for the patient herniation or significant narrowing of the right compared to the left side to look for a source for his symptoms. Further management depending upon the finding. With regard to Parkinson disease he will require continued management with medications. Dr. Kumar has seen him and will be back tomorrow see him. Thank you very much Subjective Date/time seen: 01/11/24 19:18 Interval history: The patient is 73-year-old with history of Parkinson's disease followed up at [facility]. Admitted to the hospital on account of sees a sudden severe pain in the right hip area. He also has history of obstructive sleep apnea syndrome. His thinks Parkinson disease is also not as well here since he arrived. The pain persists. He has had some x-rays and physical therapy evaluations. Review of Systems Review of Systems: No history of trauma or any febrile illness reported Exam Narrative: Ppatient is clearly is significantly parkinsonian with resting tremors in bed he can assessment. Moderate cogwheeling was noted. Difficult to evaluate in the lower limbs however he does have normal strength in both upper and lower limbs at the deep tendon face did not show any significant asymmetry or upper lower limbs. Objective Data Vital Signs Vital Signs: Vital Signs - 24 hr 01/10/24 21:48 01/10/24 22:00 01/10/24 20:25 Temperature 36.6 C Pulse Rate 85 75 Respiratory Rate 20 Blood Pressure 123/48 L Pulse Oximetry 95 96 Oxygen Delivery CPAP Room Air Fraction of Inspired Oxygen 01/11/24 06:00 01/11/24 08:34 01/11/24 08:00 Temperature 36.1 C L Pulse Rate 69 Respiratory Rate 20 Blood Pressure 148/50 H Pulse Oximetry 97 96 Oxygen Delivery Room Air Room Air Fraction of Inspired Oxygen 21 01/11/24 14:00 Temperature 36.8 C Pulse Rate 84 Respiratory Rate 18 Blood Pressure 163/59 H Pulse Oximetry 95 Oxygen Delivery Fraction of Inspired Oxygen Intake/Output Intake/Output: Intake & Output 01/08/24 01/09/24 01/10/24 01/11/24 23:59 23:59 23:59 23:59 Intake Total 550 3461 057 5682 Output Total 450 050 353 3375 Balance 100 645 -197 1530 Meds/Results Medications: Active Medications Generic Name Dose Route Start Last Admin Trade Name Freq PRN Reason Stop Dose Admin Acetaminophen 650 mg 01/09/24 08:49 01/10/24 17:37 Acetaminophen 325 Mg Tablet PO 650 mg Q4H PRN Administration Pain Rated 5 or Less or Fever Hydrocodone Bitart/Acetaminophen 1 tab 01/09/24 08:49 01/11/24 09:59 Hydrocodone/Acetaminophen (*Crx) 5-325 Mg Tablet PO 1 tab Q4H PRN Administration Pain Rated 6 or Greater Amantadine HCl 100 mg 01/10/24 07:00 01/11/24 17:46 Amantadine Hcl 100 Mg Capsule PO 100 mg 0700,1200,1700 DALE Administration Calcium Polycarbophil 1,250 mg 01/09/24 09:00 01/11/24 09:52 Calcium Polycarbophil 625 Mg Tablet PO 1,250 mg DAILY DALE Administration Carbidopa/Levodopa 1 tablet 01/09/24 20:00 01/11/24 17:46 Carbidopa/Levodopa 12.5/125 Mg
[2024-01-11] MEDS: GABAPENTIN 300 MG CAPSULE 600 MG PO (21:03)
[2024-01-11] MEDS: traZODone HCL 50 MG TABLET 100 MG PO (21:03)
[2024-01-11] MEDS: FINASTERIDE 5 MG TABLET PO (21:04)
[2024-01-11 21:49] VITALS: BP 129/98; PULSE 77; RESP 16; TEMP 36.6; O2SAT 92
[2024-01-11 22:45] VITALS: PULSE 71; RESP 21; O2SAT 96
[2024-01-12] VITALS (7 sets, daily range): BP systolic 127–173; BP diastolic 63–93; PULSE 73–82; RESP 14–22; TEMP 36.6–36.7; O2SAT 91–97
[2024-01-12 05:50] LABS: Basophils Percent Auto 0.1 % (0.2-1.2); Hematocrit 38.5 % (42.0-52.0); Hemoglobin 12.7 g/dL (14.0-18.0); Immature Granulocyte Absolute 0.06 K/mm3 (0.00-0.031); Immature Granulocyte Percent A 0.4 % (0-0.5); Lymphocytes Absolute Auto 0.69 K/mm3 (0.9-3.2); Lymphocytes Percent Auto 5.1 % (18.3-44.2); Mean Corpuscular Hemoglobin 29.2 pg (26-34); Mean Corpuscular Volume 88.5 fl (80-100); Mean Platelet Volume 11.9 fl (7.4-10.4); Monocytes Absolute Auto 0.7 K/mm3 (0.1-0.6); Monocytes Percent Auto 5.2 % (2.6-8.5); Neutrophils Percent Auto 89.2 % (45.5-73.1); Platelet Count Result 195 k/mm3 (150-375); Red Blood Count 4.35 M/mm3 (4.6-6.20); Red Cell Distribution Width 12.6 % (11.5-14.5); White Blood Count 13.5 K/mm3 (4.5-10.0)
[2024-01-12] MEDS: PRAMIPEXOLE 1 MG TABLET PO ×3 (06:01→17:04)
[2024-01-12] MEDS: AMANTADINE HCL 100 MG CAPSULE PO ×3 (06:02→17:03)
[2024-01-12] MEDS: LEVODOPA PO ×4 (06:02→21:02)
[2024-01-12] MEDS: ENTACAPONE 200 MG TABLET PO ×4 (06:02→21:02)
[2024-01-12] MEDS: CARBIDOPA/LEVODOPA 25/250 MG TABLET 2 TABLET PO ×4 (06:02→21:02)
[2024-01-12] MEDS: CARBIDOPA PO ×4 (06:02→21:02)
[2024-01-12 06:09] LABS: Alanine Aminotransferase 26 U/L (6-50); Albumin Level 3.8 g/dL (3.5-5.1); Alkaline Phosphatase 73 U/L (38-126); Anion Gap 6 mmol/L (4-12); Aspartate Amino Transferase 51 U/L (17-59); Bilirubin,Total 0.6 mg/dL (0.2-1.3); Blood Urea Nitrogen 18 mg/dL (9-20); Calcium 9.1 mg/dL (8.4-10.2); Carbon Dioxide 25 mmol/L (22-30); Chloride 107 mmol/L (98-107); Estimated CRCL calculation 97 ml/min; Estimated Glomerular Filt Rate > 60; Glucose 157 mg/dL (65-110); Magnesium 2.1 mg/dL (1.6-2.3); Potassium 3.8 mmol/L (3.4-5.0); Sodium 138 mmol/L (137-145); Uric Acid 4.4 mg/dL (3.5-8.5)
[2024-01-12 06:25] LABS: CRP 18.1 mg/dL (<1.0)
--- NOTE | 2024-01-12 06:41 | PM.CNOR ---
Assessment and Plan Assessment and plan (1) Polyarticular arthritis: Code(s): M13.0 - Polyarthritis, unspecified Status: Acute Assessment and Plan: Patient has a very complex presenting history. 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 Differential diagnosis includes inflammatory arthritis conditions such as gout uric acid septic arthritis. I recommended aspirating his right knee. After a careful skin prepped with multiple ChloraPrep skin applicators, a 21 gauge needle was inserted through a lateral parapatellar approach into the moderately large effusion without difficulty and 10 cc of cloudy fluid was aspirated. This has the appearance of an inflammatory effusion. We sent this to the laboratory for cell count with differential crystals and cultures. I have seen the cell count result which was 10 white cells per high-powered field which would correlate with crystal clear joint fluid normally which I think is incorrect so I have called the laboratory in spoken with the dental laboratory manager and she is going to re-examine these specimens. Patient has an MRI scan ordered of the lumbar spine today. It is somewhat uncommon for pathology at L5-S1 to cause pain in the groin however pathology at a higher level could certainly cause pain in the groin and knee. Furthermore, MRI scan would show evidence of infectious process if such is present in the lower back. I am going to request ultrasound-guided aspirations of the wrist on the right and the right hip. The fluid will be sent for culture cell count with differential and crystals as well. I would hold any antibiotics at this time until fluid aspirations have been completed and if fluid is suspicious for infection empiric antibiotics could be started I would wait until the cultures are taken. I will order a rheumatoid factor and ROLANDO levels. If this is not an infectious process, patient May need evaluation by a nursing project coordinator for their expertise. 90 minutes were spent in total care of this patient with more than half of this time spent in [id number] care. addendum: The laboratory courier advised me of the corrected cell count with differential report on the right knee synovial fluid. White cells 10,045, red blood cells 6000. History of Present Illness HPI Consult date: 01/12/24 Chief complaint: R Hip Pain/Unable to Ambulate/Parkinsons Narrative: Patient is a 73-year-old gentleman I am asked to see for evaluation of his right wrist. He had x-rays of the right wrist which demonstrate some mild scapholunate widening, moderately severe chronic appearing degenerative change at the radial lunate articulation with sclerosis and joint space narrowing, moderately severe degenerative changes at the scaphoid trapezial trapezoidal articulation and on the lateral view there is evidence of volar intercalated segmental instability. There is an ossicle dorsal to the proximal row on the lateral view 3 mm likely degenerative. He has no history of pain in his right wrist which started spontaneously a few days ago. He attributes this to his using his hand to assist with transfers. Patient was admitted on January 07. Was admitted for inability to ambulate and complaints of severe right hip pain. Patient states that he had a fall at home 2 and half weeks ago which is documented in various notes however he did not have any pain in this right hip with a fall. He got up walked around and even resumed his normal exercise program including riding an exercise bike all without any symptoms in the groin or knee on the right. And then, on the evening of the , he simply got up from the chair where he had been sitting working on the computer and had excruciating pain in the groin of his right hip and could not bear weight. That is when the right hip symptoms started. He has no prior history of problems with his right hip. He did have what sounds like bur
[2024-01-12 06:53] LABS: Procalcitonin 0.7 ng/mL
--- NOTE | 2024-01-12 07:49 | PM.IMPN ---
Progress Note: A&P Assessment and Plan (1) Acute pain of right hip: Code(s): M25.551 - Pain in right hip Status: Acute Assessment and Plan: - XR hip/pelvis: 1. Mild osteoarthritis of the hips. - CT pelvis: 1. Moderate osteoarthritis of the hips. 2. Left inguinal hernia containing fat. - US RLE: 1.? No deep venous thrombosis in the right lower limb. - no assistive device at baseline - PT/OT eval and treat - care coordination consulted for acute rehab consult - pain management - ambulate with assistance and fall precautions - continue home gabapentin 01/08: - patient with significant tremors, we will attempt to get patient back on his usual dosing schedule for his medications - significant right hip pain radiating down to both knees. Ordered additional dose of IV morphine to help control pain. - Will x-ray knees - neurology consulted to determine if MRI brain or spine might be indicated 01/09: Hip not hurting while in bed, has not tried to get up yet today. Nursing staff instructed to help patient get up to chair. 01/10: Hip pain improved, elevated ESR/CRP and swollen right wrist. Steroids started. 01/11: ultrasound guided joint aspiration per IR and Orthopedics, treating for septic arthritis (2) Parkinson disease: Qualifiers: Dyskinesia presence: unspecified whether dyskinesia Fluctuating manifestations: unspecified whether manifestations fluctuate Qualified Code(s): G20.A1 - Parkinson's disease without dyskinesia, without mention of fluctuations Code(s): G20 - Parkinson's disease Status: Acute Assessment and Plan: - continue home medications: amantadine, atomoxetine, sinemet, miraprex 01/08: - medication timing is off will work with patient and to reschedule medications to timing - neurology consulted as well-- appreciate assistance in managing this patient situation 01/09: -gross tremors continue, still awaiting Neurology consult. Restart entacapone in the mean time 01/10: Neurology does not recommend additional imaging. 01/11: tremor somewhat improved today (3) KYLE on CPAP: Code(s): G47.33 - Obstructive sleep apnea (adult) (pediatric); Z99.89 - Dependence on other enabling machines and devices Status: Acute Assessment and Plan: - continue home cpap (4) VISI (volar intercalated segment instability): Code(s): M25.339 - Other instability, unspecified wrist Status: Acute Assessment and Plan: 01/10: Right wrist, finding on XRay, wrist swollen and painful. ESR/CRP also elevated. Ordered steroids. 01/11: ultrasound-guided fluid aspiration culture in process treating for septic arthritis (5) Effusion of right knee joint: Code(s): M25.461 - Effusion, right knee Status: Acute Assessment and Plan: 01/11: right knee effusion drained by Orthopedics, treating for septic arthritis while awaiting culture, steroids also on board (6) Polyarticular arthritis: Code(s): M13.0 - Polyarthritis, unspecified Status: Acute Assessment and Plan: Right wrist right hip right knee fall with the fluid aspirated, rheumatoid factor minimally above normal range at 14 ESR and CRP elevated, white blood cell count slightly rising. Patient started on ceftriaxone and vancomycin per Orthopedics after multiple joint aspirations Plan ABX and Steroids for multiple joints requiring aspiration, culture Very much appreciate Orthopedics assistance Diet: Regular GI Prophylaxis: P.o. pantoprazole DVT Prophylaxis: SCDs Lines: Peripheral Code Status: Full code Time Spent With Patient Time with patient: Greater than 35 minutes Subjective Date/time seen: 01/12/24 07:49 Interval history: Inflammatory markers continue to be significantly elevated steroid started yesterday. Orthopedics consulted due to swollen right wrist with abnormal imaging. Orthopedics did right knee aspiration due to fluid in the joint
[2024-01-12 08:14] LABS: Rheumatoid Factor 14.3 IU/ML (<12)
[2024-01-12 08:25] LABS: Crystals Synovial Fluid Rare Cppd (None Seen)
[2024-01-12 08:35] LABS: Appearance Synovial Fluid Hazy (Clear); Color Synovial Fluid Yellow (Colorless); Source Synovial Fluid Synovial fluid
[2024-01-12 08:37] LABS: Lymphocytes Synovial Fluid 5 %; Macrophages Synovial Fluid 4 %; Monocytes Synovial Fluid 3 %; Neutrophils Synovial Fluid 81 % (0-25); Other Cells Synovial Fluid 7 %
[2024-01-12] MEDS: predniSONE 20 MG TABLET 60 MG PO (08:38)
[2024-01-12] MEDS: CYANOCOBALAMIN 1,000 MCG TABLET 1000 MCG PO (08:39)
[2024-01-12] MEDS: calcium polycarbophiL 625 MG TABLET 1250 MG PO (08:39)
[2024-01-12] MEDS: PANTOPRAZOLE 40 MG TABLET PO (08:39)
[2024-01-12] MEDS: TIZANIDINE HCL 4 MG TABLET PO ×2 (08:40→17:04)
[2024-01-12 08:56] LABS: Nucleated Cell Synovial Fluid 10045 /uL (0-200)
[2024-01-12 08:57] LABS: RBC Synovial Fluid 6000 /uL (0-0)
[2024-01-12 09:04] LABS: Lactic Acid Reflex 1.4 mmol/L (0.7-2.0)
--- NOTE | 2024-01-12 09:42 | PCPTNOTE ---
Attempted to see patient for PT, however patient unable to be seen due to patient out of the room for testing.
[2024-01-12 10:17] LABS: Erythrocyte Sedimentation Rate 66 mm/hr (0-20)
[2024-01-12 12:26] LABS: Appearance Synovial Fluid Hazy (Clear); Color Synovial Fluid Yellow (Colorless); Source Synovial Fluid Synovial fluid
[2024-01-12 12:27] LABS: Lymphocytes Synovial Fluid 29 %; Macrophages Synovial Fluid 16 %; Monocytes Synovial Fluid 11 %; Neutrophils Synovial Fluid 22 % (0-25); Other Cells Synovial Fluid 22 %
[2024-01-12] MEDS: cefTRIAXone 2 GM/NS 100 ML 2 GM/100 ML BAG IVPB (14:36)
[2024-01-12] MEDS: VANCOMYCIN 1,250 MG/NS 250 ML 1,250 MG/250 ML BAG 166.67 MG IVPB ×2 (15:39→17:05)
[2024-01-12] MEDS: methylPREDNISolone SOD SUCC 40 MG VIAL IV PUSH ×2 (18:47→23:12)
[2024-01-12] MEDS: GABAPENTIN 300 MG CAPSULE 600 MG PO (21:02)
[2024-01-12] MEDS: traZODone HCL 50 MG TABLET 100 MG PO (21:02)
[2024-01-12] MEDS: FINASTERIDE 5 MG TABLET PO (21:02)
[2024-01-13 02:30] VITALS: PULSE 72
[2024-01-13] MEDS: VANCOMYCIN 1,500 MG/NS 500 ML 1,500 MG/500 ML BAG 250 MG IVPB ×2 (03:52→14:40)
[2024-01-13 04:25] VITALS: BP 166/66; PULSE 70; RESP 16; TEMP 36.4; O2SAT 93
[2024-01-13 05:03] LABS: Basophils Percent Auto 0.1 % (0.2-1.2); Hematocrit 40.1 % (42.0-52.0); Hemoglobin 13.1 g/dL (14.0-18.0); Immature Granulocyte Absolute 0.08 K/mm3 (0.00-0.031); Immature Granulocyte Percent A 0.6 % (0-0.5); Lymphocytes Absolute Auto 0.61 K/mm3 (0.9-3.2); Lymphocytes Percent Auto 4.9 % (18.3-44.2); Mean Corpuscular HGB Conc 32.7 g/dl (32-36); Mean Corpuscular Volume 88.9 fl (80-100); Mean Platelet Volume 11.6 fl (7.4-10.4); Monocytes Absolute Auto 0.3 K/mm3 (0.1-0.6); Monocytes Percent Auto 2.3 % (2.6-8.5); Neutrophils Absolute Auto 11.5 K/mm3 (1.3-6.7); Neutrophils Percent Auto 92.1 % (45.5-73.1); Platelet Count Result 220 k/mm3 (150-375); Red Blood Count 4.51 M/mm3 (4.6-6.20); Red Cell Distribution Width 12.9 % (11.5-14.5); White Blood Count 12.4 K/mm3 (4.5-10.0)
[2024-01-13 05:16] LABS: Alanine Aminotransferase 42 U/L (6-50); Albumin Level 3.7 g/dL (3.5-5.1); Alkaline Phosphatase 68 U/L (38-126); Anion Gap 12 mmol/L (4-12); Aspartate Amino Transferase 81 U/L (17-59); Bilirubin,Total 0.5 mg/dL (0.2-1.3); Blood Urea Nitrogen 22 mg/dL (9-20); CRP 7.4 mg/dL (<1.0); Calcium 8.8 mg/dL (8.4-10.2); Carbon Dioxide 22 mmol/L (22-30); Chloride 107 mmol/L (98-107); Estimated CRCL calculation 97 ml/min; Estimated Glomerular Filt Rate > 60; Glucose 190 mg/dL (65-110); Magnesium 2.1 mg/dL (1.6-2.3); Potassium 3.7 mmol/L (3.4-5.0); Sodium 141 mmol/L (137-145); Uric Acid 4.5 mg/dL (3.5-8.5)
[2024-01-13 05:43] LABS: Procalcitonin 0.3 ng/mL
[2024-01-13 05:52] LABS: Erythrocyte Sedimentation Rate 49 mm/hr (0-20)
[2024-01-13] MEDS: methylPREDNISolone SOD SUCC 40 MG VIAL IV PUSH ×4 (06:14→23:45)
[2024-01-13] MEDS: CARBIDOPA PO ×4 (06:14→20:37)
[2024-01-13] MEDS: CARBIDOPA/LEVODOPA 25/250 MG TABLET 2 TABLET PO ×4 (06:14→20:37)
[2024-01-13] MEDS: PRAMIPEXOLE 1 MG TABLET PO ×3 (06:14→17:11)
[2024-01-13] MEDS: ENTACAPONE 200 MG TABLET PO ×4 (06:14→20:39)
[2024-01-13] MEDS: LEVODOPA PO ×4 (06:14→20:37)
[2024-01-13] MEDS: AMANTADINE HCL 100 MG CAPSULE PO ×3 (06:21→17:11)
--- NOTE | 2024-01-13 06:48 | PM.PNORT ---
Progress Note: A&P Assessment and Plan (1) Polyarticular arthritis: Code(s): M13.0 - Polyarthritis, unspecified Status: Acute Assessment and Plan: impression: Polyarticular arthritis, right knee with inflammatory arthritis. Unfortunately the lab did not do the cell count on the hip aspirate fluid as there was some clot in the specimen and I have spoken to the medical laboratory technical officer about this and she is going to look into that. The differential was fairly normal however. The right knee aspirate showed inflammatory effusion 10,000 white cells with 81% neutrophils. Rare CPPD crystals noted which could certainly explain the inflammatory component of the effusion. G stains have been negative the right hip wrist and knee except for showing white cells. No bacteria seen. Cultures are pending in all 3 joints. White count remains slightly elevated which may be due to the high dose steroids. Sedimentation rate today 49, down from 66 yesterday 54 the day before. C-reactive protein is now 7. Two days ago it was 22 normal is less than 1. Procalcitonin is now considered normal at 0.3 low probability for infection. This may be more specific for infection than C-reactive protein I have not seen much published in the orthopedic literature for sensitivity and specificity of procalcitonin in diagnosis of septic arthritis. Cultures are pending. He is on ceftriaxone and vancomycin empirically until cultures are back. The plates would have been set up in the lab this morning so we have no growth in 48 hours infection is unlikely and antibiotics can be discontinued. I would recommend evaluation next by Rheumatology if cultures are negative for autoimmune disease given his unusually high C-reactive protein level a 22 and elevated sedimentation rate. I have reviewed his records with his knees and he saw Dr. Bishop in 2021 and was noted to have significant patellofemoral arthritis in his knees at that time . Combined with his obesity this would certainly be expected to exacerbate his walking difficulty which would be exacerbated by a pseudogout flare up. I will ask the hospitalist service if they feel appropriate to initiate DVT prophylaxis with Lovenox 40 mg subQ daily. Subjective Subjective Date/Time Seen: 01/13/24 06:48 Objective Data Vital Signs Vital Signs: Vital Signs - 24 hr 01/12/24 08:00 01/12/24 10:18 01/12/24 10:52 Temperature Pulse Rate 73 73 Respiratory Rate 18 20 Blood Pressure 149/69 H 163/67 H Pulse Oximetry 94 91 Oxygen Delivery Room Air 01/12/24 14:00 01/12/24 21:45 01/12/24 21:00 Temperature 36.7 C 36.6 C Pulse Rate 82 78 Respiratory Rate 14 16 Blood Pressure 173/63 H 162/80 H Pulse Oximetry 93 97 Oxygen Delivery Room Air 01/12/24 23:15 01/13/24 02:30 01/13/24 04:25 Temperature 36.4 C Pulse Rate 75 72 70 Respiratory Rate 16 Blood Pressure 166/66 H Pulse Oximetry 95 93 Oxygen Delivery CPAP CPAP Intake/Output Intake/Output: Intake & Output 01/10/24 01/11/24 01/12/24 01/13/24 23:59 23:59 23:59 23:59 Intake Total 480 2530 1330 750 Output Total 750 1000 1740 800 Balance -270 1530 -410 -50 Meds/Results Medications: Active Medications Generic Name Dose Route Start Last Admin Trade Name Freq PRN Reason Stop Dose Admin Acetaminophen 650 mg 01/09/24 08:49 01/10/24 17:37 Acetaminophen 325 Mg Tablet PO 650 mg Q4H PRN Administration Pain Rated 5 or Less or Fever Hydrocodone Bitart/Acetaminophen 1 tab 01/09/24 08:49 01/11/24 09:59 Hydrocodone/Acetaminophen (*Crx) 5-325 Mg Tablet PO 1 tab Q4H PRN Administration Pain Rated 6 or Greater Amantadine HCl 100 mg 01/10/24 07:00 01/13/24 06:21 Amantadine Hcl 100 Mg Capsule PO 100 mg 0700,1200,1700 DALE Administration Calcium Polycarbophil 1,250 mg 01/09/24 09:00 01/12/24 08:39 Calcium Polycarbophil 625 Mg Tablet PO 1,250 mg DAILY DALE Administration
[2024-01-13 07:52] VITALS: O2SAT 94
[2024-01-13] MEDS: PANTOPRAZOLE 40 MG TABLET PO (08:27)
[2024-01-13] MEDS: CYANOCOBALAMIN 1,000 MCG TABLET 1000 MCG PO (08:27)
[2024-01-13] MEDS: calcium polycarbophiL 625 MG TABLET 1250 MG PO (08:27)
[2024-01-13] MEDS: TIZANIDINE HCL 4 MG TABLET PO ×2 (08:28→17:11)
[2024-01-13 09:38] LABS: Hemoglobin A1C 5.6 % (<5.7)
--- NOTE | 2024-01-13 10:04 | PM.IMPN ---
Progress Note: A&P Assessment and Plan (1) Acute pain of right hip: Code(s): M25.551 - Pain in right hip Status: Acute Assessment and Plan: - XR hip/pelvis: 1. Mild osteoarthritis of the hips. - CT pelvis: 1. Moderate osteoarthritis of the hips. 2. Left inguinal hernia containing fat. - US RLE: 1.? No deep venous thrombosis in the right lower limb. - no assistive device at baseline - PT/OT eval and treat - care coordination consulted for acute rehab consult - pain management - ambulate with assistance and fall precautions - continue home gabapentin 01/08: - patient with significant tremors, we will attempt to get patient back on his usual dosing schedule for his medications - significant right hip pain radiating down to both knees. Ordered additional dose of IV morphine to help control pain. - Will x-ray knees - neurology consulted to determine if MRI brain or spine might be indicated 01/09: Hip not hurting while in bed, has not tried to get up yet today. Nursing staff instructed to help patient get up to chair. 01/10: Hip pain improved, elevated ESR/CRP and swollen right wrist. Steroids started. 01/11: ultrasound guided joint aspiration per IR and Orthopedics, treating for septic arthritis 01/12: awaiting cultures, continue with steroids and antibiotics. housekeeping coordinator working on rehab placement. (2) Parkinson disease: Qualifiers: Dyskinesia presence: unspecified whether dyskinesia Fluctuating manifestations: unspecified whether manifestations fluctuate Qualified Code(s): G20.A1 - Parkinson's disease without dyskinesia, without mention of fluctuations Code(s): G20 - Parkinson's disease Status: Acute Assessment and Plan: - continue home medications: amantadine, atomoxetine, sinemet, miraprex 01/08: - medication timing is off will work with patient and to reschedule medications to timing - neurology consulted as well-- appreciate assistance in managing this patient situation 01/09: -gross tremors continue, still awaiting Neurology consult. Restart entacapone in the mean time 01/10: Neurology does not recommend additional imaging. 01/11: tremor somewhat improved today 01/12: no change (3) KYLE on CPAP: Code(s): G47.33 - Obstructive sleep apnea (adult) (pediatric); Z99.89 - Dependence on other enabling machines and devices Status: Acute Assessment and Plan: 01/11: - continue home cpap 01/11: no change (4) VISI (volar intercalated segment instability): Code(s): M25.339 - Other instability, unspecified wrist Status: Acute Assessment and Plan: 01/10: Right wrist, finding on XRay, wrist swollen and painful. ESR/CRP also elevated. Ordered steroids. 01/11: ultrasound-guided fluid aspiration culture in process treating for septic arthritis 01/12: cultures pending, continue steroids and antibiotics (5) Effusion of right knee joint: Code(s): M25.461 - Effusion, right knee Status: Acute Assessment and Plan: 01/11: right knee effusion drained by Orthopedics, treating for septic arthritis while awaiting culture, steroids also on board 01/12: cultures pending, continue steroids and antibiotics (6) Polyarticular arthritis: Code(s): M13.0 - Polyarthritis, unspecified Status: Acute Assessment and Plan: 01/11: Right wrist right hip right knee fall with the fluid aspirated, rheumatoid factor minimally above normal range at 14 ESR and CRP elevated, white blood cell count slightly rising. Patient started on ceftriaxone and vancomycin per Orthopedics after multiple joint aspirations 01/12: ESR 49, CRP 7.4. Continue Rocephin and vancomycin along with steroids Time Spent With Patient Time with patient: 25 - 35 minutes Subjective Date/time seen: 01/13/24 10:04 Interval history: 01/08/24: copy forward from chart 73 y/o M presents here with right hip pain with PMH of asthma, GERD, lymph
[2024-01-13] MEDS: cefTRIAXone 2 GM/NS 100 ML 2 GM/100 ML BAG IVPB (14:08)
[2024-01-13 15:00] VITALS: BP 142/70; PULSE 65; RESP 18; TEMP 36.9; O2SAT 95
--- NOTE | 2024-01-13 15:05 | PCOTNOTE ---
Attempted to see Patient at this time. Patient declined at this time due to stating her prefers A.M. sessions and is comfortable in the bedside chair until after dinner. Patient requested therapy services attempt again in the morning.
[2024-01-13 20:31] VITALS: BP 172/80; PULSE 57; RESP 18; TEMP 36.4; O2SAT 95
[2024-01-13] MEDS: traZODone HCL 50 MG TABLET 100 MG PO (20:36)
[2024-01-13] MEDS: GABAPENTIN 300 MG CAPSULE 600 MG PO (20:36)
[2024-01-13] MEDS: FINASTERIDE 5 MG TABLET PO (20:37)
[2024-01-14 00:10] VITALS: PULSE 75
[2024-01-14 02:21] LABS: Basophils Percent Auto 0.1 % (0.2-1.2); Hematocrit 38.1 % (42.0-52.0); Hemoglobin 12.5 g/dL (14.0-18.0); Immature Granulocyte Absolute 0.11 K/mm3 (0.00-0.031); Immature Granulocyte Percent A 0.8 % (0-0.5); Lymphocytes Absolute Auto 0.65 K/mm3 (0.9-3.2); Lymphocytes Percent Auto 4.8 % (18.3-44.2); Mean Corpuscular HGB Conc 32.8 g/dl (32-36); Mean Corpuscular Hemoglobin 29.3 pg (26-34); Mean Corpuscular Volume 89.4 fl (80-100); Mean Platelet Volume 11.4 fl (7.4-10.4); Monocytes Absolute Auto 0.6 K/mm3 (0.1-0.6); Monocytes Percent Auto 4.5 % (2.6-8.5); Neutrophils Absolute Auto 12.1 K/mm3 (1.3-6.7); Neutrophils Percent Auto 89.8 % (45.5-73.1); Platelet Count Result 195 k/mm3 (150-375); Red Blood Count 4.26 M/mm3 (4.6-6.20); Red Cell Distribution Width 12.9 % (11.5-14.5); White Blood Count 13.5 K/mm3 (4.5-10.0)
[2024-01-14 02:37] LABS: Alanine Aminotransferase 34 U/L (6-50); Albumin Level 3.3 g/dL (3.5-5.1); Alkaline Phosphatase 60 U/L (38-126); Anion Gap 3 mmol/L (4-12); Aspartate Amino Transferase 80 U/L (17-59); Bilirubin,Total 0.5 mg/dL (0.2-1.3); Blood Urea Nitrogen 25 mg/dL (9-20); Calcium 8.6 mg/dL (8.4-10.2); Carbon Dioxide 26 mmol/L (22-30); Chloride 107 mmol/L (98-107); Estimated CRCL calculation 85 ml/min; Estimated Glomerular Filt Rate > 60; Glucose 201 mg/dL (65-110); Magnesium 2.1 mg/dL (1.6-2.3); Potassium 4.2 mmol/L (3.4-5.0); Sodium 136 mmol/L (137-145)
[2024-01-14 02:41] LABS: Vancomycin Trough 10.6 ug/mL (10.0-20.0)
[2024-01-14] MEDS: VANCOMYCIN 2,000 MG/NS 500 ML 2,000 MG/500 ML BAG 250 MG IVPB ×2 (03:31→14:05)
[2024-01-14 05:11] VITALS: BP 157/53; PULSE 51; RESP 16; TEMP 36.6; O2SAT 96
[2024-01-14] MEDS: LEVODOPA PO ×4 (06:24→20:13)
[2024-01-14] MEDS: CARBIDOPA PO ×4 (06:24→20:13)
[2024-01-14] MEDS: methylPREDNISolone SOD SUCC 40 MG VIAL IV PUSH ×3 (06:24→17:09)
[2024-01-14] MEDS: PRAMIPEXOLE 1 MG TABLET PO ×3 (06:25→17:10)
[2024-01-14] MEDS: ENTACAPONE 200 MG TABLET PO ×4 (06:25→20:12)
[2024-01-14] MEDS: CARBIDOPA/LEVODOPA 25/250 MG TABLET 2 TABLET PO ×4 (06:25→20:12)
[2024-01-14] MEDS: AMANTADINE HCL 100 MG CAPSULE PO ×3 (06:25→17:10)
[2024-01-14 08:07] VITALS: O2SAT 95
[2024-01-14] MEDS: CYANOCOBALAMIN 1,000 MCG TABLET 1000 MCG PO (09:40)
[2024-01-14] MEDS: TIZANIDINE HCL 4 MG TABLET PO ×2 (09:40→17:10)
[2024-01-14] MEDS: PANTOPRAZOLE 40 MG TABLET PO (09:40)
[2024-01-14] MEDS: calcium polycarbophiL 625 MG TABLET 1250 MG PO (09:40)
[2024-01-14] MEDS: ENOXAPARIN 40 MG/0.4 ML SYRINGE SUB-Q (09:41)
--- NOTE | 2024-01-14 11:16 | PM.PNORT ---
Progress Note: A&P Assessment and Plan (1) Polyarticular arthritis: Code(s): M13.0 - Polyarthritis, unspecified Status: Acute Assessment and Plan: patient was admitted on 01/08/2024 complaining of such severe pain in his right hip that he could not ambulate and his could not manage him as she was unable to get him up. In the subsequent 2 days he started having complaints of severe pain and swelling in the right wrist and right knee. He does have known history of significant osteoarthritis the patellofemoral joint of the right knee and has had cortisone shots there in the past. Patient is now 48 hours after aspiration of right hip knee and wrist. Cultures are no growth thus far. His white count is 13.5 today. Again this is nonspecific since he is on high dose corticosteroids. On exam today he is sitting up in a chair and states he is feeling much better. He has no pain. His right knee feels better his right wrist feels better and his right hip feels better. He had no pain with palpation range of motion of his right wrist his right knee or range of motion of the right hip. Today strength testing showed 5 of 5 right hip flexion and quadriceps activation. He has no palpable effusion today in the right knee so this is markedly improved with the high-dose corticosteroids. Septic arthritis would seem unlikely with his marked improvement in symptoms on corticosteroids. Impression: Patient had inflammatory polyarthritis involving right hip right knee right wrist. Cultures are no growth so far and is a poor response to corticosteroids supports non infectious inflammatory condition. One day after admission he had a temperature of 38.8? and C-reactive protein of 22 which is 22 times normal normal being less than 1 and sedimentation rate has been in the 50-60 range. This suggests a severe systemic inflammatory status. His procalcitonin 2 days ago was 0.5 which is indeterminate but yesterday it was 0.3 which is considered low probability for infection. He did have trace CPPD crystals and pseudogout is certainly a possibility could explain his mild 10,000 white count 80% neutrophils cell count with differential his right knee aspirate. Unfortunately the laboratory did not perform cell count differential Of the synovial fluid from the right hip because they saw some clot in the fluid that it is their policy to not do a cell count if there is clot visualized in the fluid. Pseudogout could certainly explain his effusion and pain in the right knee however I do not think it would cause such an intense significant elevation in C-reactive protein. It is noteworthy that his intense elevation of inflammatory markers coincided with his suspected exacerbation of Parkinson's disease As well as polyarticular inflammatory arthritis. The association of his acute polyarticular inflammatory arthritis with his exacerbation of Parkinson's disease may be simply due to added difficulties with ambulation due to his joint pain or there may be some sort of vasculitis consideration causing central nervous system difficulties. I have discussed options with this patient. His neurologist as at [place] and I would recommend he be transferred to [place] so that he can have an evaluation by legal archivist to see if there is an explanation for his acute elevation in inflammatory markers, fever, polyarticular arthritis, and apparent exacerbation of his Parkinson's disease impairment. I explained these issues to the patient is going to talk to his and he is interested in going to [place] is that is where his neurologist is. I have spoken with Dr. Lugo the hospitalist about this recommendation and she is going to assess this case and consider transferred to [place] for rheumatologic evaluation as discussed. Subjective Subjective Date/Time Seen: 01/14/24 11:16 Objective Data Vital Signs Vital Signs: Vital Signs - 24 hr 01/13/24 15:00 12/29
--- NOTE | 2024-01-14 11:30 | PM.IMPN ---
Progress Note: A&P Assessment and Plan (1) Acute pain of right hip: Code(s): M25.551 - Pain in right hip Status: Acute Assessment and Plan: - XR hip/pelvis: 1. Mild osteoarthritis of the hips. - CT pelvis: 1. Moderate osteoarthritis of the hips. 2. Left inguinal hernia containing fat. - US RLE: 1.? No deep venous thrombosis in the right lower limb. - no assistive device at baseline - PT/OT eval and treat - care coordination consulted for acute rehab consult - pain management - ambulate with assistance and fall precautions - continue home gabapentin 01/08: - patient with significant tremors, we will attempt to get patient back on his usual dosing schedule for his medications - significant right hip pain radiating down to both knees. Ordered additional dose of IV morphine to help control pain. - Will x-ray knees - neurology consulted to determine if MRI brain or spine might be indicated 01/09: Hip not hurting while in bed, has not tried to get up yet today. Nursing staff instructed to help patient get up to chair. 01/10: Hip pain improved, elevated ESR/CRP and swollen right wrist. Steroids started. 01/11: ultrasound guided joint aspiration per IR and Orthopedics, treating for septic arthritis 01/12: awaiting cultures, continue with steroids and antibiotics. clinical training coordinator working on rehab placement. 01/13: No change to current treatment plan (2) Parkinson disease: Qualifiers: Dyskinesia presence: unspecified whether dyskinesia Fluctuating manifestations: unspecified whether manifestations fluctuate Qualified Code(s): G20.A1 - Parkinson's disease without dyskinesia, without mention of fluctuations Code(s): G20 - Parkinson's disease Status: Acute Assessment and Plan: - continue home medications: amantadine, atomoxetine, sinemet, miraprex 01/08: - medication timing is off will work with patient and to reschedule medications to timing - neurology consulted as well-- appreciate assistance in managing this patient situation 01/09: -gross tremors continue, still awaiting Neurology consult. Restart entacapone in the mean time 01/10: Neurology does not recommend additional imaging. 01/11: tremor somewhat improved today 01/12: no change Patient to follow up with Neurologist on outpatient basis (3) KYLE on CPAP: Code(s): G47.33 - Obstructive sleep apnea (adult) (pediatric); Z99.89 - Dependence on other enabling machines and devices Status: Acute Assessment and Plan: 01/11: - continue home cpap 01/11: no change (4) VISI (volar intercalated segment instability): Code(s): M25.339 - Other instability, unspecified wrist Status: Acute Assessment and Plan: 01/10: Right wrist, finding on XRay, wrist swollen and painful. ESR/CRP also elevated. Ordered steroids. 01/11: ultrasound-guided fluid aspiration culture in process treating for septic arthritis 01/12: cultures pending, continue steroids and antibiotics 01/13: no change to current treatment plan (5) Effusion of right knee joint: Code(s): M25.461 - Effusion, right knee Status: Acute Assessment and Plan: 01/11: right knee effusion drained by Orthopedics, treating for septic arthritis while awaiting culture, steroids also on board 01/12: cultures pending, continue steroids and antibiotics 01/13: no change to current treatment plan, not a candiate for transfer to tertiary hospital as this is a non-emergent, non-acute issue. Family calling around for outpatient visit to [facility]. (6) Polyarticular arthritis: Code(s): M13.0 - Polyarthritis, unspecified Status: Acute Assessment and Plan: 01/11: Right wrist right hip right knee fall with the fluid aspirated, rheumatoid factor minimally above normal range at 14 ESR and CRP elevated, white blood cell count slightly rising. Patient started on ceftriaxone and vancomycin per Orthopedics after mul
[2024-01-14] MEDS: cefTRIAXone 2 GM/NS 100 ML 2 GM/100 ML BAG IVPB (13:00)
[2024-01-14 14:00] VITALS: BP 148/72; PULSE 60; RESP 16; TEMP 36.5; O2SAT 96
[2024-01-14 19:27] VITALS: BP 153/67; PULSE 78; RESP 16; TEMP 36.4; O2SAT 94
[2024-01-14] MEDS: GABAPENTIN 300 MG CAPSULE 600 MG PO (20:12)
[2024-01-14] MEDS: FINASTERIDE 5 MG TABLET PO (20:12)
[2024-01-14] MEDS: traZODone HCL 50 MG TABLET 100 MG PO (20:13)
[2024-01-15] MEDS: methylPREDNISolone SOD SUCC 40 MG VIAL IV PUSH ×4 (00:06→17:32)
[2024-01-15 00:13] VITALS: PULSE 72
[2024-01-15] MEDS: VANCOMYCIN 2,000 MG/NS 500 ML 2,000 MG/500 ML BAG 250 MG IVPB ×2 (03:00→17:33)
[2024-01-15 05:55] LABS: Basophils Percent Auto 0.2 % (0.2-1.2); Hematocrit 40.3 % (42.0-52.0); Hemoglobin 13.3 g/dL (14.0-18.0); Immature Granulocyte Absolute 0.27 K/mm3 (0.00-0.031); Immature Granulocyte Percent A 1.8 % (0-0.5); Lymphocytes Absolute Auto 0.72 K/mm3 (0.9-3.2); Lymphocytes Percent Auto 4.9 % (18.3-44.2); Mean Corpuscular Hemoglobin 29.4 pg (26-34); Mean Platelet Volume 11.7 fl (7.4-10.4); Monocytes Absolute Auto 0.8 K/mm3 (0.1-0.6); Monocytes Percent Auto 5.3 % (2.6-8.5); Neutrophils Percent Auto 87.8 % (45.5-73.1); Platelet Count Result 216 k/mm3 (150-375); Red Blood Count 4.53 M/mm3 (4.6-6.20); Red Cell Distribution Width 12.7 % (11.5-14.5); White Blood Count 14.8 K/mm3 (4.5-10.0)
[2024-01-15 05:56] VITALS: BP 168/56; PULSE 58; RESP 14; TEMP 36.4; O2SAT 95
[2024-01-15] MEDS: CARBIDOPA/LEVODOPA 25/250 MG TABLET 2 TABLET PO ×4 (06:06→20:02)
[2024-01-15] MEDS: ENTACAPONE 200 MG TABLET PO ×4 (06:06→20:02)
[2024-01-15] MEDS: PRAMIPEXOLE 1 MG TABLET PO ×3 (06:06→17:35)
[2024-01-15] MEDS: LEVODOPA PO ×4 (06:07→20:02)
[2024-01-15] MEDS: CARBIDOPA PO ×4 (06:07→20:02)
[2024-01-15] MEDS: AMANTADINE HCL 100 MG CAPSULE PO ×3 (06:07→17:35)
[2024-01-15 06:14] LABS: Alanine Aminotransferase 59 U/L (6-50); Albumin Level 3.4 g/dL (3.5-5.1); Alkaline Phosphatase 62 U/L (38-126); Anion Gap 7 mmol/L (4-12); Aspartate Amino Transferase 49 U/L (17-59); Bilirubin,Total 0.4 mg/dL (0.2-1.3); Blood Urea Nitrogen 23 mg/dL (9-20); Calcium 8.3 mg/dL (8.4-10.2); Carbon Dioxide 25 mmol/L (22-30); Chloride 107 mmol/L (98-107); Estimated CRCL calculation 97 ml/min; Estimated Glomerular Filt Rate > 60; Glucose 167 mg/dL (65-110); Magnesium 2.2 mg/dL (1.6-2.3); Potassium 3.7 mmol/L (3.4-5.0); Sodium 139 mmol/L (137-145)
[2024-01-15 08:55] VITALS: O2SAT 95
[2024-01-15] MEDS: CYANOCOBALAMIN 1,000 MCG TABLET 1000 MCG PO (09:24)
[2024-01-15] MEDS: calcium polycarbophiL 625 MG TABLET 1250 MG PO (09:24)
[2024-01-15] MEDS: TIZANIDINE HCL 4 MG TABLET PO ×2 (09:24→17:32)
[2024-01-15] MEDS: PANTOPRAZOLE 40 MG TABLET PO (09:24)
[2024-01-15] MEDS: ENOXAPARIN 40 MG/0.4 ML SYRINGE SUB-Q (09:25)
--- NOTE | 2024-01-15 09:47 | PCNWS ---
Weekly nutritional screen. Patient is tolerating current diet with adequate intake. No weight loss reported. No nutritional needs at this time.
--- NOTE | 2024-01-15 12:06 | PM.IMPN ---
Progress Note: A&P Assessment and Plan (1) Acute pain of right hip: Code(s): M25.551 - Pain in right hip Status: Acute Assessment and Plan: - XR hip/pelvis: 1. Mild osteoarthritis of the hips. - CT pelvis: 1. Moderate osteoarthritis of the hips. 2. Left inguinal hernia containing fat. - US RLE: 1.? No deep venous thrombosis in the right lower limb. - no assistive device at baseline - PT/OT eval and treat - care coordination consulted for acute rehab consult - pain management - ambulate with assistance and fall precautions - continue home gabapentin 01/08: - patient with significant tremors, we will attempt to get patient back on his usual dosing schedule for his medications - significant right hip pain radiating down to both knees. Ordered additional dose of IV morphine to help control pain. - Will x-ray knees - neurology consulted to determine if MRI brain or spine might be indicated 01/09: Hip not hurting while in bed, has not tried to get up yet today. Nursing staff instructed to help patient get up to chair. 01/10: Hip pain improved, elevated ESR/CRP and swollen right wrist. Steroids started. 01/11: ultrasound guided joint aspiration per IR and Orthopedics, treating for septic arthritis 01/12: awaiting cultures, continue with steroids and antibiotics. telehealth coordinator working on rehab placement. 01/13: No change to current treatment plan (2) Parkinson disease: Qualifiers: Dyskinesia presence: unspecified whether dyskinesia Fluctuating manifestations: unspecified whether manifestations fluctuate Qualified Code(s): G20.A1 - Parkinson's disease without dyskinesia, without mention of fluctuations Code(s): G20 - Parkinson's disease Status: Acute Assessment and Plan: - continue home medications: amantadine, atomoxetine, sinemet, miraprex 01/08: - medication timing is off will work with patient and to reschedule medications to timing - neurology consulted as well-- appreciate assistance in managing this patient situation 01/09: -gross tremors continue, still awaiting Neurology consult. Restart entacapone in the mean time 01/10: Neurology does not recommend additional imaging. 01/11: tremor somewhat improved today 01/12: no change Patient to follow up with Neurologist on outpatient basis 01/14/24: No change to current treatment plan (3) KYLE on CPAP: Code(s): G47.33 - Obstructive sleep apnea (adult) (pediatric); Z99.89 - Dependence on other enabling machines and devices Status: Acute Assessment and Plan: 01/11: - continue home cpap 01/11: no change (4) VISI (volar intercalated segment instability): Code(s): M25.339 - Other instability, unspecified wrist Status: Acute Assessment and Plan: 01/10: Right wrist, finding on XRay, wrist swollen and painful. ESR/CRP also elevated. Ordered steroids. 01/11: ultrasound-guided fluid aspiration culture in process treating for septic arthritis 01/12: cultures pending, continue steroids and antibiotics 01/13: no change to current treatment plan (5) Effusion of right knee joint: Code(s): M25.461 - Effusion, right knee Status: Acute Assessment and Plan: 01/11: right knee effusion drained by Orthopedics, treating for septic arthritis while awaiting culture, steroids also on board 01/12: cultures pending, continue steroids and antibiotics 01/13: no change to current treatment plan, not a candiate for transfer to tertiary hospital as this is a non-emergent, non-acute issue. Family calling around for outpatient visit to [place]. 01/14: Culture so far her showing no growth to date. Patient got ahold of a [place] at [facility] that can get him in as early as January. Records being faxed over for review and they will call with an appointment time. (6) Polyarticular arthritis: Code(s): M13.0 - Polyarthritis, unspecified Status: Acute Assessment
[2024-01-15] MEDS: cefTRIAXone 2 GM/NS 100 ML 2 GM/100 ML BAG IVPB (14:30)
[2024-01-15 14:47] VITALS: BP 132/51; PULSE 62; RESP 16; TEMP 36.6; O2SAT 100
[2024-01-15 16:06] LABS: Vancomycin Trough 12.3 ug/mL (10.0-20.0)
[2024-01-15 19:54] VITALS: BP 156/89; PULSE 66; RESP 18; TEMP 36; O2SAT 95
[2024-01-15] MEDS: traZODone HCL 50 MG TABLET 100 MG PO (20:01)
[2024-01-15] MEDS: FINASTERIDE 5 MG TABLET PO (20:02)
[2024-01-15] MEDS: GABAPENTIN 300 MG CAPSULE 600 MG PO (20:02)
[2024-01-16] MEDS: methylPREDNISolone SOD SUCC 40 MG VIAL IV PUSH ×4 (00:01→17:31)
[2024-01-16] MEDS: VANCOMYCIN 1,750 MG/NS 500 ML 1,750 MG/500 ML BAG 250 MG IVPB ×3 (00:01→17:32)
[2024-01-16 03:48] VITALS: BP 181/56; PULSE 59; RESP 20; TEMP 36.4; O2SAT 96
[2024-01-16 05:36] LABS: Basophils Absolute Auto 0.1 K/mm3 (0.0-0.1); Basophils Percent Auto 0.5 % (0.2-1.2); Hematocrit 41.1 % (42.0-52.0); Hemoglobin 13.2 g/dL (14.0-18.0); Immature Granulocyte Absolute 0.47 K/mm3 (0.00-0.031); Immature Granulocyte Percent A 2.8 % (0-0.5); Lymphocytes Absolute Auto 0.84 K/mm3 (0.9-3.2); Mean Corpuscular HGB Conc 32.1 g/dl (32-36); Mean Corpuscular Hemoglobin 29.1 pg (26-34); Mean Corpuscular Volume 90.5 fl (80-100); Mean Platelet Volume 11.6 fl (7.4-10.4); Monocytes Absolute Auto 0.9 K/mm3 (0.1-0.6); Monocytes Percent Auto 5.3 % (2.6-8.5); Neutrophils Absolute Auto 14.5 K/mm3 (1.3-6.7); Neutrophils Percent Auto 86.4 % (45.5-73.1); Nucleated Red Blood Cells Perc 0.1 % (0.0-0.2); Platelet Count Result 235 k/mm3 (150-375); Red Blood Count 4.54 M/mm3 (4.6-6.20); Red Cell Distribution Width 12.8 % (11.5-14.5); White Blood Count 16.8 K/mm3 (4.5-10.0)
[2024-01-16 05:47] LABS: Alanine Aminotransferase 35 U/L (6-50); Albumin Level 3.2 g/dL (3.5-5.1); Alkaline Phosphatase 58 U/L (38-126); Anion Gap 6 mmol/L (4-12); Aspartate Amino Transferase 34 U/L (17-59); Bilirubin,Total 0.4 mg/dL (0.2-1.3); Blood Urea Nitrogen 22 mg/dL (9-20); Calcium 8.1 mg/dL (8.4-10.2); Carbon Dioxide 25 mmol/L (22-30); Chloride 104 mmol/L (98-107); Estimated CRCL calculation 97 ml/min; Estimated Glomerular Filt Rate > 60; Glucose 172 mg/dL (65-110); Magnesium 2.1 mg/dL (1.6-2.3); Potassium 3.7 mmol/L (3.4-5.0); Sodium 135 mmol/L (137-145)
[2024-01-16] MEDS: CARBIDOPA PO ×4 (06:38→21:31)
[2024-01-16] MEDS: LEVODOPA PO ×4 (06:38→21:31)
[2024-01-16] MEDS: PRAMIPEXOLE 1 MG TABLET PO ×3 (06:39→17:31)
[2024-01-16] MEDS: AMANTADINE HCL 100 MG CAPSULE PO ×3 (06:39→17:31)
[2024-01-16] MEDS: ENTACAPONE 200 MG TABLET PO ×4 (06:39→21:29)
[2024-01-16] MEDS: CARBIDOPA/LEVODOPA 25/250 MG TABLET 2 TABLET PO ×4 (06:39→21:30)
[2024-01-16 08:05] VITALS: O2SAT 96
[2024-01-16 08:54] VITALS: BP 160/74
[2024-01-16] MEDS: CYANOCOBALAMIN 1,000 MCG TABLET 1000 MCG PO (09:00)
[2024-01-16] MEDS: calcium polycarbophiL 625 MG TABLET 1250 MG PO (09:00)
[2024-01-16] MEDS: TIZANIDINE HCL 4 MG TABLET PO ×2 (09:00→17:31)
[2024-01-16] MEDS: ENOXAPARIN 40 MG/0.4 ML SYRINGE SUB-Q (09:00)
[2024-01-16] MEDS: PANTOPRAZOLE 40 MG TABLET PO (09:00)
--- NOTE | 2024-01-16 10:47 | PM.IMPN ---
Progress Note: A&P Assessment and Plan (1) Acute pain of right hip: Code(s): M25.551 - Pain in right hip Status: Acute Assessment and Plan: - XR hip/pelvis: 1. Mild osteoarthritis of the hips. - CT pelvis: 1. Moderate osteoarthritis of the hips. 2. Left inguinal hernia containing fat. - US RLE: 1.? No deep venous thrombosis in the right lower limb. - no assistive device at baseline - PT/OT eval and treat - care coordination consulted for acute rehab consult - pain management - ambulate with assistance and fall precautions - continue home gabapentin 01/08: - patient with significant tremors, we will attempt to get patient back on his usual dosing schedule for his medications - significant right hip pain radiating down to both knees. Ordered additional dose of IV morphine to help control pain. - Will x-ray knees - neurology consulted to determine if MRI brain or spine might be indicated 01/09: Hip not hurting while in bed, has not tried to get up yet today. Nursing staff instructed to help patient get up to chair. 01/10: Hip pain improved, elevated ESR/CRP and swollen right wrist. Steroids started. 01/11: ultrasound guided joint aspiration per IR and Orthopedics, treating for septic arthritis 01/12: awaiting cultures, continue with steroids and antibiotics. flight operations coordinator working on rehab placement. 01/13: No change to current treatment plan (2) Parkinson disease: Qualifiers: Dyskinesia presence: unspecified whether dyskinesia Fluctuating manifestations: unspecified whether manifestations fluctuate Qualified Code(s): G20.A1 - Parkinson's disease without dyskinesia, without mention of fluctuations Code(s): G20 - Parkinson's disease Status: Acute Assessment and Plan: - continue home medications: amantadine, atomoxetine, sinemet, miraprex 01/08: - medication timing is off will work with patient and to reschedule medications to timing - neurology consulted as well-- appreciate assistance in managing this patient situation 01/09: -gross tremors continue, still awaiting Neurology consult. Restart entacapone in the mean time 01/10: Neurology does not recommend additional imaging. 01/11: tremor somewhat improved today 01/12: no change Patient to follow up with Neurologist on outpatient basis 01/14/24: No change to current treatment plan (3) KYLE on CPAP: Code(s): G47.33 - Obstructive sleep apnea (adult) (pediatric); Z99.89 - Dependence on other enabling machines and devices Status: Acute Assessment and Plan: 01/11: - continue home cpap 01/11: no change (4) VISI (volar intercalated segment instability): Code(s): M25.339 - Other instability, unspecified wrist Status: Acute Assessment and Plan: 01/10: Right wrist, finding on XRay, wrist swollen and painful. ESR/CRP also elevated. Ordered steroids. 01/11: ultrasound-guided fluid aspiration culture in process treating for septic arthritis 01/12: cultures pending, continue steroids and antibiotics 01/13: no change to current treatment plan (5) Effusion of right knee joint: Code(s): M25.461 - Effusion, right knee Status: Acute Assessment and Plan: 01/11: right knee effusion drained by Orthopedics, treating for septic arthritis while awaiting culture, steroids also on board 01/12: cultures pending, continue steroids and antibiotics 01/13: no change to current treatment plan, not a candiate for transfer to tertiary hospital as this is a non-emergent, non-acute issue. Family calling around for outpatient visit to [facility]. 01/14: Culture so far her showing no growth to date. Patient got ahold of a [facility] at [facility] that can get him in as early as January. Records being faxed over for review and they will call with an appointment time. 01/15: No change to current treatment plan, cultures are still pending (6) Polyarticular arthritis: Code(s): M13.
[2024-01-16] MEDS: cefTRIAXone 2 GM/NS 100 ML 2 GM/100 ML BAG IVPB (13:28)
[2024-01-16 15:01] VITALS: BP 168/44; PULSE 74; RESP 16; TEMP 36.2; O2SAT 95
[2024-01-16 20:00] VITALS: BP 183/53; PULSE 69; RESP 20; TEMP 36.6; O2SAT 95
[2024-01-16] MEDS: FINASTERIDE 5 MG TABLET PO (21:29)
[2024-01-16] MEDS: GABAPENTIN 300 MG CAPSULE 600 MG PO (21:31)
[2024-01-16] MEDS: traZODone HCL 50 MG TABLET 100 MG PO (21:32)
[2024-01-17] MEDS: methylPREDNISolone SOD SUCC 40 MG VIAL IV PUSH ×2 (00:17→05:25)
[2024-01-17 00:40] LABS: Vancomycin Trough 16.8 ug/mL (10.0-20.0)
[2024-01-17] MEDS: VANCOMYCIN 1,750 MG/NS 500 ML 1,750 MG/500 ML BAG 250 MG IVPB ×2 (01:47→10:30)
[2024-01-17 04:49] VITALS: BP 165/54; PULSE 57; RESP 24; TEMP 36.6; O2SAT 95
[2024-01-17 05:17] LABS: Basophils Absolute Auto 0.1 K/mm3 (0.0-0.1); Basophils Percent Auto 0.7 % (0.2-1.2); Hematocrit 42.3 % (42.0-52.0); Hemoglobin 13.7 g/dL (14.0-18.0); Immature Granulocyte Absolute 1.09 K/mm3 (0.00-0.031); Immature Granulocyte Percent A 5.6 % (0-0.5); Lymphocytes Absolute Auto 0.91 K/mm3 (0.9-3.2); Lymphocytes Percent Auto 4.7 % (18.3-44.2); Mean Corpuscular HGB Conc 32.4 g/dl (32-36); Mean Corpuscular Hemoglobin 29.1 pg (26-34); Mean Corpuscular Volume 89.8 fl (80-100); Mean Platelet Volume 11.5 fl (7.4-10.4); Monocytes Absolute Auto 0.9 K/mm3 (0.1-0.6); Monocytes Percent Auto 4.7 % (2.6-8.5); Neutrophils Absolute Auto 16.5 K/mm3 (1.3-6.7); Neutrophils Percent Auto 84.3 % (45.5-73.1); Platelet Count Result 236 k/mm3 (150-375); Red Blood Count 4.71 M/mm3 (4.6-6.20); Red Cell Distribution Width 12.7 % (11.5-14.5); White Blood Count 19.5 K/mm3 (4.5-10.0)
[2024-01-17] MEDS: AMANTADINE HCL 100 MG CAPSULE PO ×3 (06:04→17:31)
[2024-01-17] MEDS: LEVODOPA PO ×4 (06:05→21:46)
[2024-01-17] MEDS: PRAMIPEXOLE 1 MG TABLET PO ×3 (06:05→17:35)
[2024-01-17] MEDS: CARBIDOPA PO ×4 (06:05→21:46)
[2024-01-17] MEDS: CARBIDOPA/LEVODOPA 25/250 MG TABLET 2 TABLET PO ×4 (06:05→21:46)
[2024-01-17] MEDS: ENTACAPONE 200 MG TABLET PO ×4 (06:06→21:46)
[2024-01-17 06:17] LABS: Alanine Aminotransferase 31 U/L (6-50); Albumin Level 3.1 g/dL (3.5-5.1); Alkaline Phosphatase 65 U/L (38-126); Anion Gap 6 mmol/L (4-12); Aspartate Amino Transferase 34 U/L (17-59); Bilirubin,Total 0.5 mg/dL (0.2-1.3); Blood Urea Nitrogen 22 mg/dL (9-20); Calcium 8.2 mg/dL (8.4-10.2); Carbon Dioxide 26 mmol/L (22-30); Chloride 104 mmol/L (98-107); Estimated CRCL calculation 97 ml/min; Estimated Glomerular Filt Rate > 60; Glucose 177 mg/dL (65-110); Magnesium 2.1 mg/dL (1.6-2.3); Potassium 3.8 mmol/L (3.4-5.0); Sodium 136 mmol/L (137-145)
--- NOTE | 2024-01-17 09:48 | P.PNIM_ITS ---
Progress Note: A&P Assessment and Plan (1) Acute pain of right hip: Code(s): M25.551 - Pain in right hip Status: Acute Assessment and Plan: - XR hip/pelvis: 1. Mild osteoarthritis of the hips. - CT pelvis: 1. Moderate osteoarthritis of the hips. 2. Left inguinal hernia containing fat. - US RLE: 1.? No deep venous thrombosis in the right lower limb. - no assistive device at baseline - PT/OT eval and treat - care coordination consulted for acute rehab consult - pain management - ambulate with assistance and fall precautions - continue home gabapentin 01/08: - patient with significant tremors, we will attempt to get patient back on his usual dosing schedule for his medications - significant right hip pain radiating down to both knees. Ordered additional dose of IV morphine to help control pain. - Will x-ray knees - neurology consulted to determine if MRI brain or spine might be indicated 01/09: Hip not hurting while in bed, has not tried to get up yet today. Nursing staff instructed to help patient get up to chair. 01/10: Hip pain improved, elevated ESR/CRP and swollen right wrist. Steroids started. 01/11: ultrasound guided joint aspiration per IR and Orthopedics, treating for septic arthritis 01/12: awaiting cultures, continue with steroids and antibiotics. communication coordinator working on rehab placement. 01/13: No change to current treatment plan (2) Parkinson disease: Qualifiers: Dyskinesia presence: unspecified whether dyskinesia Fluctuating manifestations: unspecified whether manifestations fluctuate Qualified Code(s): G20.A1 - Parkinson's disease without dyskinesia, without mention of fluctuations Code(s): G20 - Parkinson's disease Status: Acute Assessment and Plan: - continue home medications: amantadine, atomoxetine, sinemet, miraprex 01/08: - medication timing is off will work with patient and to reschedule medications to timing - neurology consulted as well-- appreciate assistance in managing this patient situation 01/09: -gross tremors continue, still awaiting Neurology consult. Restart entacapone in the mean time 01/10: Neurology does not recommend additional imaging. 01/11: tremor somewhat improved today 01/12: no change Patient to follow up with Neurologist on outpatient basis 01/14/24: * No change to current treatment plan (3) KYLE on CPAP: Code(s): G47.33 - Obstructive sleep apnea (adult) (pediatric); Z99.89 - Dependence on other enabling machines and devices Status: Acute Assessment and Plan: 01/11: - continue home cpap 01/11: no change (4) VISI (volar intercalated segment instability): Code(s): M25.339 - Other instability, unspecified wrist Status: Acute Assessment and Plan: 01/10: Right wrist, finding on XRay, wrist swollen and painful. ESR/CRP also elevated. Ordered steroids. 01/11: ultrasound-guided fluid aspiration culture in process treating for septic arthritis 01/12: cultures pending, continue steroids and antibiotics 01/13: no change to current treatment plan (5) Effusion of right knee joint: Code(s): M25.461 - Effusion, right knee Status: Acute Assessment and Plan: 01/11: right knee effusion drained by Orthopedics, treating for septic arthritis while awaiting culture, steroids also on board 01/12: cultures pending, continue steroids and antibiotics 01/13: no change to current treatment plan, not a candiate for transfer to tertiary hospital as this is a non-emergent,
--- NOTE | 2024-01-17 10:08 | PM.PNORT ---
Progress Note: A&P Assessment and Plan (1) Polyarticular arthritis: Code(s): M13.0 - Polyarthritis, unspecified Status: Acute Assessment and Plan: Cultures right hip right knee right wrist all negative thus far. Aerobic cultures are final. Anaerobic culture still percolating. He has been afebrile. It is unclear why his white count has gradually increased over the last couple of days and is now 19.5 today. I cannot rule out some other source of infection but septic arthritis in the right hip right knee right wrist is considered very unlikely and from an orthopedic standpoint I think it would be appropriate to discontinue the vancomycin and ceftriaxone that were started as impaired treatment for possible septic arthritis in these joints. I will ask the hospitalist surface of they feel these antibiotics should be discontinued. Subjective Subjective Date/Time Seen: 01/17/24 10:08 Objective Data Vital Signs Vital Signs: Vital Signs - 24 hr 01/16/24 15:01 01/16/24 20:00 01/16/24 22:20 Temperature 36.2 C L 36.6 C Pulse Rate 74 69 Respiratory Rate 16 20 Blood Pressure 168/44 H 183/53 H Pulse Oximetry 95 95 Oxygen Delivery CPAP Fraction of Inspired Oxygen 01/16/24 20:00 01/17/24 04:49 Temperature 36.6 C Pulse Rate 57 L Respiratory Rate 24 H Blood Pressure 165/54 H Pulse Oximetry 95 95 Oxygen Delivery CPAP Fraction of Inspired Oxygen 21 Intake/Output Intake/Output: Intake & Output 01/14/24 01/15/24 01/16/24 01/17/24 23:59 23:59 23:59 23:59 Intake Total 2156 2410 2472 500 Output Total 650 100 Balance 1506 2310 2472 500 Meds/Results Medications: Active Medications Generic Name Dose Route Start Last Admin Trade Name Freq PRN Reason Stop Dose Admin Acetaminophen 650 mg 01/09/24 08:49 01/10/24 17:37 Acetaminophen 325 Mg Tablet PO 650 mg Q4H PRN Administration Pain Rated 5 or Less or Fever Hydrocodone Bitart/Acetaminophen 1 tab 01/09/24 08:49 01/11/24 09:59 Hydrocodone/Acetaminophen (*Crx) 5-325 Mg Tablet PO 1 tab Q4H PRN Administration Pain Rated 6 or Greater Amantadine HCl 100 mg 01/10/24 07:00 01/17/24 06:04 Amantadine Hcl 100 Mg Capsule PO 100 mg 0700,1200,1700 DALE Administration Calcium Polycarbophil 1,250 mg 01/09/24 09:00 01/16/24 09:00 Calcium Polycarbophil 625 Mg Tablet PO 1,250 mg DAILY DALE Administration Carbidopa/Levodopa 1 tablet 01/09/24 20:00 01/17/24 06:05 Carbidopa/Levodopa 12.5/125 Mg Tablet PO 1 tablet 0700,1200,1700,2000 DALE Administration Carbidopa/Levodopa 2 tablet 01/09/24 20:00 01/17/24 06:05 Carbidopa/Levodopa 25/250 Mg Tablet PO 2 tablet 0700,1200,1700,2000 DALE Administration Cyanocobalamin 1,000 mcg 01/09/24 09:00 01/16/24 09:00 Cyanocobalamin 1,000 Mcg Tablet PO 02/08/24 08:59 1,000 mcg DAILY DALE Administration Enoxaparin Sodium 40 mg 01/14/24 09:00 01/16/24 09:00 Enoxaparin 40 Mg/0.4 Ml Syringe SUB-Q 40 mg DAILY DALE Administration Entacapone 200 mg 01/10/24 09:00 01/17/24 06:06 Entacapone 200 Mg Tablet PO 200 mg 0700,1200,1700,2000 DALE Administration Finasteride 5 mg 01/08/24 21:00 01/16/24 21:29 Finasteride 5 Mg Tablet PO 5 mg QHS DALE Administration Fluticasone Propionate 2 spray 01/08/24 20:26 Fluticasone Propionate 0.05% Na Spr 16 Gm Btl (*Bkc) NASAL DAILY PRN allergies Gabapentin 600 mg 01/08/24 21:00 01/16/24 21:31 Gabapentin 300 Mg Capsule PO 600 mg QHS DALE Administration Ceftriaxone Sodium 2 gm in 100 mls @ 200 mls/hr 01/12/24 14:00 01/16/24 13:58 Rocephin 2 Gm/Ns 100 Ml IVPB Infused Q24H DALE Infusion Vancomycin HCl 1,750 mg in 500 mls @ 250 mls/hr 01/16/24 01:00 01/17/24 03:47 Vancomycin 1,750 Mg/Ns 500 Ml IVPB Infused Q8H DALE Infusion Methylprednisolone Sodium Succinate 40 mg 01/12/24 18:00 01/17/24 05:25 Methylprednisolone Sod Succ 40 Mg Vial
[2024-01-17] MEDS: calcium polycarbophiL 625 MG TABLET 1250 MG PO (10:29)
[2024-01-17] MEDS: CYANOCOBALAMIN 1,000 MCG TABLET 1000 MCG PO (10:30)
[2024-01-17] MEDS: TIZANIDINE HCL 4 MG TABLET PO ×2 (10:30→17:31)
[2024-01-17] MEDS: PANTOPRAZOLE 40 MG TABLET PO (10:30)
[2024-01-17] MEDS: ENOXAPARIN 40 MG/0.4 ML SYRINGE SUB-Q (10:31)
[2024-01-17 14:30] VITALS: BP 173/66; PULSE 91; RESP 16; TEMP 36.9; O2SAT 96
[2024-01-17] MEDS: amLODIPine BESYLATE 5 MG TABLET PO (17:31)
[2024-01-17 19:57] VITALS: BP 136/91; PULSE 70; RESP 20; TEMP 36.9; O2SAT 96
[2024-01-17] MEDS: traZODone HCL 50 MG TABLET 100 MG PO (21:46)
[2024-01-17] MEDS: GABAPENTIN 300 MG CAPSULE 600 MG PO (21:47)
[2024-01-17] MEDS: FINASTERIDE 5 MG TABLET PO (21:47)
[2024-01-18 04:38] VITALS: BP 167/56; PULSE 56; RESP 20; TEMP 36.4; O2SAT 96
[2024-01-18 05:59] LABS: Basophils Percent Auto 0.1 % (0.2-1.2); Eosinophils Absolute Auto 0.1 K/mm3 (0-0.3); Eosinophils Percent Auto 0.8 % (0-4.4); Hematocrit 41.9 % (42.0-52.0); Hemoglobin 13.6 g/dL (14.0-18.0); Immature Granulocyte Absolute 1.15 K/mm3 (0.00-0.031); Immature Granulocyte Percent A 8.1 % (0-0.5); Lymphocytes Absolute Auto 1.82 K/mm3 (0.9-3.2); Lymphocytes Percent Auto 12.8 % (18.3-44.2); Mean Corpuscular HGB Conc 32.5 g/dl (32-36); Mean Corpuscular Hemoglobin 29.2 pg (26-34); Mean Corpuscular Volume 90.1 fl (80-100); Mean Platelet Volume 11.1 fl (7.4-10.4); Monocytes Percent Auto 6.7 % (2.6-8.5); Neutrophils Absolute Auto 10.2 K/mm3 (1.3-6.7); Neutrophils Percent Auto 71.5 % (45.5-73.1); Platelet Count Result 222 k/mm3 (150-375); Red Blood Count 4.65 M/mm3 (4.6-6.20); Red Cell Distribution Width 12.9 % (11.5-14.5); White Blood Count 14.2 K/mm3 (4.5-10.0)
[2024-01-18 06:09] LABS: Alanine Aminotransferase 17 U/L (6-50); Alkaline Phosphatase 53 U/L (38-126); Anion Gap 3 mmol/L (4-12); Aspartate Amino Transferase 24 U/L (17-59); Bilirubin,Total 0.6 mg/dL (0.2-1.3); Blood Urea Nitrogen 23 mg/dL (9-20); CRP < 0.5 mg/dL (<1.0); Calcium 8.1 mg/dL (8.4-10.2); Carbon Dioxide 28 mmol/L (22-30); Chloride 104 mmol/L (98-107); Estimated CRCL calculation 85 ml/min; Estimated Glomerular Filt Rate > 60; Glucose 110 mg/dL (65-110); Potassium 3.3 mmol/L (3.4-5.0); Sodium 135 mmol/L (137-145)
[2024-01-18] MEDS: AMANTADINE HCL 100 MG CAPSULE PO ×3 (06:20→17:36)
[2024-01-18] MEDS: CARBIDOPA PO ×4 (06:21→21:03)
[2024-01-18] MEDS: LEVODOPA PO ×4 (06:21→21:03)
[2024-01-18] MEDS: CARBIDOPA/LEVODOPA 25/250 MG TABLET 2 TABLET PO ×4 (06:21→21:03)
[2024-01-18] MEDS: PRAMIPEXOLE 1 MG TABLET PO ×3 (06:22→17:36)
[2024-01-18] MEDS: ENTACAPONE 200 MG TABLET PO ×4 (06:22→21:03)
[2024-01-18 06:26] LABS: Procalcitonin 0.1 ng/mL
[2024-01-18 08:00] VITALS: O2SAT 93
[2024-01-18 08:01] LABS: Erythrocyte Sedimentation Rate 8 mm/hr (0-20)
[2024-01-18] MEDS: predniSONE 20 MG TABLET 40 MG PO (08:26)
[2024-01-18] MEDS: ENOXAPARIN 40 MG/0.4 ML SYRINGE SUB-Q (08:27)
[2024-01-18] MEDS: CYANOCOBALAMIN 1,000 MCG TABLET 1000 MCG PO (08:27)
[2024-01-18] MEDS: PANTOPRAZOLE 40 MG TABLET PO (08:27)
[2024-01-18] MEDS: TIZANIDINE HCL 4 MG TABLET PO ×2 (08:27→17:36)
[2024-01-18] MEDS: calcium polycarbophiL 625 MG TABLET 1250 MG PO (08:27)
[2024-01-18] MEDS: amLODIPine BESYLATE 5 MG TABLET PO (08:27)
[2024-01-18 14:00] VITALS: BP 160/70; PULSE 64; RESP 19; TEMP 36.4; O2SAT 97
[2024-01-18] MEDS: POTASSIUM CHLORIDE 20 MEQ ER TABLET PO (14:18)
[2024-01-18 16:02] LABS: SARS-CoV-2 RNA PCR Negative (Negative)
--- NOTE | 2024-01-18 17:15 | PM.IMPN ---
Progress Note: A&P Assessment and Plan (1) Acute pain of right hip: Code(s): M25.551 - Pain in right hip Status: Acute Assessment and Plan: - XR hip/pelvis: 1. Mild osteoarthritis of the hips. - CT pelvis: 1. Moderate osteoarthritis of the hips. 2. Left inguinal hernia containing fat. - US RLE: 1.? No deep venous thrombosis in the right lower limb. - no assistive device at baseline - PT/OT eval and treat - care coordination consulted for acute rehab consult - pain management - ambulate with assistance and fall precautions - continue home gabapentin 01/08: - patient with significant tremors, we will attempt to get patient back on his usual dosing schedule for his medications - significant right hip pain radiating down to both knees. Ordered additional dose of IV morphine to help control pain. - Will x-ray knees - neurology consulted to determine if MRI brain or spine might be indicated 01/09: Hip not hurting while in bed, has not tried to get up yet today. Nursing staff instructed to help patient get up to chair. 01/10: Hip pain improved, elevated ESR/CRP and swollen right wrist. Steroids started. 01/11: ultrasound guided joint aspiration per IR and Orthopedics, treating for septic arthritis 01/12: awaiting cultures, continue with steroids and antibiotics. web content coordinator working on rehab placement. 01/13: No change to current treatment plan (2) Parkinson disease: Qualifiers: Dyskinesia presence: unspecified whether dyskinesia Fluctuating manifestations: unspecified whether manifestations fluctuate Qualified Code(s): G20.A1 - Parkinson's disease without dyskinesia, without mention of fluctuations Code(s): G20 - Parkinson's disease Status: Acute Assessment and Plan: - continue home medications: amantadine, atomoxetine, sinemet, miraprex 01/08: - medication timing is off will work with patient and to reschedule medications to timing - neurology consulted as well-- appreciate assistance in managing this patient situation 01/09: -gross tremors continue, still awaiting Neurology consult. Restart entacapone in the mean time 01/10: Neurology does not recommend additional imaging. 01/11: tremor somewhat improved today 01/12: no change Patient to follow up with Neurologist on outpatient basis 01/14/24: No change to current treatment plan (3) KYLE on CPAP: Code(s): G47.33 - Obstructive sleep apnea (adult) (pediatric); Z99.89 - Dependence on other enabling machines and devices Status: Acute Assessment and Plan: 01/11: - continue home cpap 01/11: no change (4) VISI (volar intercalated segment instability): Code(s): M25.339 - Other instability, unspecified wrist Status: Acute Assessment and Plan: 01/10: Right wrist, finding on XRay, wrist swollen and painful. ESR/CRP also elevated. Ordered steroids. 01/11: ultrasound-guided fluid aspiration culture in process treating for septic arthritis 01/12: cultures pending, continue steroids and antibiotics 01/13: no change to current treatment plan (5) Effusion of right knee joint: Code(s): M25.461 - Effusion, right knee Status: Acute Assessment and Plan: 01/11: right knee effusion drained by Orthopedics, treating for septic arthritis while awaiting culture, steroids also on board 01/12: cultures pending, continue steroids and antibiotics 01/13: no change to current treatment plan, not a candiate for transfer to tertiary hospital as this is a non-emergent, non-acute issue. Family calling around for outpatient visit to Memorandum Statement Clerk. 01/14: Culture so far her showing no growth to date. Patient got ahold of a Memorandum Statement Clerk at [facility] that can get him in as early as January. Records being faxed over for review and they will call with an appointment time. 01/15: No change to current treatment plan, cultures are still pending (6) Polyarticular arthritis: Code(s): M13.
[2024-01-18 19:11] LABS: Appearance Urine Clear (Clear); Bilirubin Urine Negative (Negative); Blood Urine Negative (Negative); Color Urine Yellow (Yellow); Glucose Urine UA Negative (Negative); Ketones Urine Negative (Negative); Leukocyte Esterase Ur Negative LEU/UL (Negative); Nitrate Urine Negative (Negative); Protein Urine Negative (Negative); Specific Grav Ur 1.014 (1.001-1.035); Urobilinogen Urine 0.2 mg/dL (<2.0); pH Urine 5.5 (5.0-9.0)
[2024-01-18 19:20] LABS: Add Urine Microscopic? NO
[2024-01-18] MEDS: GABAPENTIN 300 MG CAPSULE 600 MG PO (20:59)
[2024-01-18] MEDS: traZODone HCL 50 MG TABLET 100 MG PO (20:59)
[2024-01-18] MEDS: FINASTERIDE 5 MG TABLET PO (21:00)
[2024-01-18 21:47] VITALS: BP 169/54; PULSE 63; RESP 22; TEMP 36.4; O2SAT 92
[2024-01-18 23:07] VITALS: O2SAT 98
[2024-01-19 04:36] VITALS: BP 148/58; PULSE 60; RESP 18; TEMP 36.1; O2SAT 95
[2024-01-19 05:49] LABS: Alanine Aminotransferase 14 U/L (6-50); Albumin Level 2.8 g/dL (3.5-5.1); Alkaline Phosphatase 50 U/L (38-126); Anion Gap 1 mmol/L (4-12); Aspartate Amino Transferase 20 U/L (17-59); Bilirubin,Total 0.7 mg/dL (0.2-1.3); Blood Urea Nitrogen 22 mg/dL (9-20); Carbon Dioxide 31 mmol/L (22-30); Chloride 103 mmol/L (98-107); Estimated CRCL calculation 85 ml/min; Estimated Glomerular Filt Rate > 60; Glucose 112 mg/dL (65-110); Potassium 3.5 mmol/L (3.4-5.0); Sodium 135 mmol/L (137-145)
[2024-01-19 05:52] LABS: Basophils Absolute Auto 0.1 K/mm3 (0.0-0.1); Basophils Percent Auto 0.8 % (0.2-1.2); Eosinophils Absolute Auto 0.1 K/mm3 (0-0.3); Eosinophils Percent Auto 1.2 % (0-4.4); Hematocrit 40.9 % (42.0-52.0); Hemoglobin 13.3 g/dL (14.0-18.0); Immature Granulocyte Absolute 0.78 K/mm3 (0.00-0.031); Immature Granulocyte Percent A 6.8 % (0-0.5); Lymphocytes Absolute Auto 1.43 K/mm3 (0.9-3.2); Lymphocytes Percent Auto 12.4 % (18.3-44.2); Mean Corpuscular HGB Conc 32.5 g/dl (32-36); Mean Corpuscular Hemoglobin 29.2 pg (26-34); Mean Corpuscular Volume 89.7 fl (80-100); Mean Platelet Volume 11.1 fl (7.4-10.4); Monocytes Absolute Auto 0.8 K/mm3 (0.1-0.6); Monocytes Percent Auto 6.7 % (2.6-8.5); Neutrophils Absolute Auto 8.3 K/mm3 (1.3-6.7); Neutrophils Percent Auto 72.1 % (45.5-73.1); Platelet Count Result 193 k/mm3 (150-375); Red Blood Count 4.56 M/mm3 (4.6-6.20); Red Cell Distribution Width 13.1 % (11.5-14.5); White Blood Count 11.5 K/mm3 (4.5-10.0)
[2024-01-19] MEDS: ENTACAPONE 200 MG TABLET PO ×2 (08:17→12:10)
[2024-01-19] MEDS: predniSONE 20 MG TABLET 40 MG PO (08:17)
[2024-01-19] MEDS: PANTOPRAZOLE 40 MG TABLET PO (08:18)
[2024-01-19] MEDS: PRAMIPEXOLE 1 MG TABLET PO ×2 (08:18→12:10)
[2024-01-19] MEDS: calcium polycarbophiL 625 MG TABLET 1250 MG PO (08:18)
[2024-01-19] MEDS: TIZANIDINE HCL 4 MG TABLET PO (08:18)
[2024-01-19] MEDS: CYANOCOBALAMIN 1,000 MCG TABLET 1000 MCG PO (08:18)
[2024-01-19] MEDS: AMANTADINE HCL 100 MG CAPSULE PO ×2 (08:18→12:10)
[2024-01-19] MEDS: amLODIPine BESYLATE 5 MG TABLET PO (08:18)
[2024-01-19] MEDS: LEVODOPA PO ×2 (08:19→12:10)
[2024-01-19] MEDS: CARBIDOPA/LEVODOPA 25/250 MG TABLET 2 TABLET PO ×2 (08:19→12:09)
[2024-01-19] MEDS: CARBIDOPA PO ×2 (08:19→12:10)
[2024-01-19] MEDS: ENOXAPARIN 40 MG/0.4 ML SYRINGE SUB-Q (08:23)
--- NOTE | 2024-01-19 11:16 | PM.DS ---
DS: Admitting Diagnosis Discharge Date January 19, 2024 Admitting Diagnosis Hip pain DS: Discharge Diagnosis Discharge Diagnosis (1) Effusion of right knee joint: Code(s): M25.461 - Effusion, right knee Status: Acute (2) Polyarticular arthritis: Code(s): M13.0 - Polyarthritis, unspecified Status: Acute (3) VISI (volar intercalated segment instability): Code(s): M25.339 - Other instability, unspecified wrist Status: Acute (4) Parkinson disease: Qualifiers: Dyskinesia presence: unspecified whether dyskinesia Fluctuating manifestations: unspecified whether manifestations fluctuate Qualified Code(s): G20.A1 - Parkinson's disease without dyskinesia, without mention of fluctuations Code(s): G20 - Parkinson's disease Status: Acute DS: Summary Hospital Course Hospital Course: 73-year-old male with past medical history asthma, GERD, lymphedema, KYLE on CPAP, Parkinson's, BPH. Patient presents from home with evaluation for right hip pain. The patient was no longer ambulatory and needed to be admitted for this. ESR and CRP were elevated. Joint aspiration of right hip and right wrist conducted. No evidence of septic arthritis. Antibiotics stopped. We will continue steroids and provide a tapering course on discharge. He was recently taken off of entacapone and that was restarted as the noticed him to be having more tremors. He also complained of incontinence and tamsulosin is recently discontinued to see how he would do. That was continued on discharge. Patient is stable for discharge on 01/18. He is discharged to SNF for rehab. He was full code. Time Spent with Patient Time attestation: Total time spent providing and/or coordinating discharge services: Exam Narrative: General: In no acute distress, well nourished Eyes: EOMI, PERRLA, sclera clear ENT: moist mucous membranes, nasal passages clear Neck: supple, no JVD, no adenopathy, Cardiac: Normal S1 and S2. RRR, No murmur, gallops or friction rubs, peripheral pulses intact. Respiratory: Lungs clear to auscultation, no adventitious lung sounds,currently on room air Gastrointestinal: soft, non-distended, non-tender, normoactive bowel sounds. Neuro: Alert and oriented x4, cranial nerves intact, Gross tremors noted Psych: normal mood, normal affect, interactive DS: Data Data Completed and Pending Labs on day of discharge: Labs from last 24 hours 01/19/24 01/19/24 01/18/24 04:53 04:52 17:48 WBC 11.5 H RBC 4.56 L Hgb 13.3 L Hct 40.9 L MCV 89.7 MCH 29.2 MCHC 32.5 RDW 13.1 Plt Count 193 MPV 11.1 H Immature Gran % (Auto) 6.8 H Neut % (Auto) 72.1 Lymph % (Auto) 12.[address] [place] % (Auto) 6.7 Eos % (Auto) 1.2 Baso % (Auto) 0.8 Lymph # (Auto) 1.43 [place] # (Auto) 0.8 H Eos # (Auto) 0.1 Baso # (Auto) 0.1 Abs Immat Gran (auto) 0.78 H Absolute Neuts (auto) 8.3 H Absolute Nucleated RBC 0.000 Nucleated RBC % 0.0 Sodium 135 L Potassium 3.5 Chloride 103 Carbon Dioxide 31 H Anion Gap 1 L BUN 22 H Creatinine 0.80 Estim Creat Clear Calc 85 Estimated GFR > 60 Glucose 112 H Calcium 8.0 L Total Bilirubin 0.7 AST 20 ALT 14 Alkaline Phosphatase 50 Total Protein 5.0 L Albumin 2.8 L Urine Color Yellow Urine Appearance Clear Urine pH 5.5 Ur Specific [place] 1.014 Urine Protein Negative Urine Glucose (UA) Negative Urine Ketones Negative Ur Blood (Man) Negative Urine Nitrate Negative Urine Bilirubin Negative Urine Urobilinogen 0.2 Ur Leukocyte Esterase Negative SARS-CoV-2 RNA (RT-PCR) 01/18/24 15:19 WBC RBC Hgb Hct MCV MCH MCHC RDW Plt Count MPV Immature Gran % (Auto) Neut % (Auto) Lymph % (Auto) [place] % (Auto) Eos % (Auto) Baso % (Auto) Lymph # (Auto) [facility] # (Auto) Eos # (Auto) Baso # (Auto) Abs Immat Gran (a
== END 2024-01-19 12:35 | DRG 554 ==
LOC: ANHED 11:42 → ANH2MED 16:27
PROVIDERS: Nurse Practitioner; Orthopaedic Surgery; Admitting Provider Internal Medicine; Emergency Provider Physician Assistant; PCP Nurse Practitioner Family; Visit Provider General Practice
DX: M16.11 Unilateral primary osteoarthritis, right hip (principal); M25.331 Other instability, right wrist; M25.461 Effusion, right knee; W18.2XXA Fall in (into) shower or empty bathtub, initial encounter; M17.0 Bilateral primary osteoarthritis of knee; G20.A1 Parkinson's disease without dyskinesia, without mention of fluctuations; E66.9 Obesity, unspecified; Z68.38 Body mass index [BMI] 38.0-38.9, adult; G47.33 Obstructive sleep apnea (adult) (pediatric); K40.90 Unilateral inguinal hernia, without obstruction or gangrene, not specified as recurrent; K21.9 Gastro-esophageal reflux disease without esophagitis; J45.909 Unspecified asthma, uncomplicated; I89.0 Lymphedema, not elsewhere classified; G62.9 Polyneuropathy, unspecified; N40.0 Benign prostatic hyperplasia without lower urinary tract symptoms
CPT/HCPCS: 20605; 20610; 36415; 72158; 72192; 73110; 73502; 73562; 77002; 80053; 80202; 81003; 83036; 83605; 83735; 84145; 84550; 85025; 85610; 85652; 85730; 86038; 86140; 86430; 87040; 87070; 87075; 87086; 87205; 87635; 89051; 89060; 93971; 94762; 96374; 96375; 97110; 97116; 97161; 97165; 97530; 97535; 99285; A9270; A9577; G0378; J0696; J1650; J2270; J2405; J2919; J3370; J7512; Q9966

== ENCOUNTER 2024-02-20 20:53 | Emergency (ER) | payer MEDICARE, SELFPAY ==
[2024-02-20] VITALS (7 sets, daily range): BP systolic 168–191; BP diastolic 55–68; PULSE 68–82; RESP 18–23; TEMP 36.4; O2SAT 96–100
--- NOTE | ~2024-02-20 | CT_ITS ---
EXAMINATION: CTA chest PE protocol DATE: 02/20/2024 22:59 INDICATION: Dyspnea. TECHNIQUE: Computed tomography (CT) pulmonary angiogram of the chest was performed with 100 mL Omnipa que-350 intravenous contrast. Additional 3D reconstructions utilizing coronal maximum intensity proje ction (MIP) were performed. Automated exposure control and iterative reconstruction technique were em ployed. The dose-length product was 829.53 mGy-cm. COMPARISON: None FINDINGS: Central pulmonary arterial filling defect consistent with likely acute pulmonary embolism in the supe rior segmental pulmonary artery of the right lower lobe. No other pulmonary emboli identified. There is mild dependent atelectasis in the bilateral lower lobes, right greater than left. No pneumonia, pu lmonary edema or pleural effusion. Heart size is normal. No leftward bowing of the ventricular septum to suggest heart strain. Small amount of atherosclerotic coronary artery calcification. No pericardi al effusion. Thoracic aorta is normal in caliber with no dissection. No pathologically enlarged thora cic lymphadenopathy. 25 degrees thoracic dextroscoliosis with moderate spondylosis. There are also br idging osteophytes at multiple levels consistent with diffuse idiopathic skeletal hyperostosis (DISH) . IMPRESSION: 1. Pulmonary embolism involving the superior segmental pulmonary artery of the right lower lobe. Reviewed, dictated and finalized at location A.
--- NOTE | ~2024-02-20 | XR_ITS ---
EXAMINATION: XR chest 1V portable DATE: 02/20/2024 21:29 INDICATION: Shortness of breath. TECHNIQUE: A single frontal view of the chest was obtained on 2 radiographs. COMPARISON: Chest 2 views 02/18/2013 FINDINGS: There is no pneumonia, pleural effusion, or pneumothorax. The heart size is normal. IMPRESSION: 1. No acute cardiopulmonary disease. Reviewed, dictated and finalized at location E.
--- NOTE | 2024-02-20 20:54 | ECG_ITS ---
Test Date: 2024-02-20 21:03:16 Measurements Intervals [place] Rate: 76 P: 19 DE: 149 QRS: -7 QRSD: 118 T: 30 QT: 374 QTc: 422 Interpretive Statements SINUS RHYTHM WITHIN NORMAL LIMITS No previous ECG available for comparison Electronically Signed On 02-21-2024 08:40:37 CDT by Kam Simpson M.D.
--- NOTE | 2024-02-20 21:15 | PC.NURSE ---
Pt requesting to be put on oxygen to see if SOB improves. This RN placed pt on 2L NC. Pt o2 99%.
[2024-02-20] MEDS: IPRATROPIUM 0.5 MG/ALBUTEROL SULFATE 2.5 MG AMPUL.NEB 3 ML INHALATION (21:35)
[2024-02-20 21:49] LABS: Basophils Percent Auto 0.5 % (0.2-1.2); Eosinophils Absolute Auto 0.2 K/mm3 (0-0.3); Eosinophils Percent Auto 1.8 % (0-4.4); Hematocrit 40.5 % (42.0-52.0); Hemoglobin 13.1 g/dL (14.0-18.0); Immature Granulocyte Absolute 0.05 K/mm3 (0.00-0.031); Immature Granulocyte Percent A 0.6 % (0-0.5); Lymphocytes Absolute Auto 1.48 K/mm3 (0.9-3.2); Lymphocytes Percent Auto 16.7 % (18.3-44.2); Mean Corpuscular HGB Conc 32.3 g/dl (32-36); Mean Corpuscular Hemoglobin 29.3 pg (26-34); Mean Corpuscular Volume 90.6 fl (80-100); Mean Platelet Volume 11.2 fl (7.4-10.4); Monocytes Absolute Auto 0.8 K/mm3 (0.1-0.6); Monocytes Percent Auto 8.8 % (2.6-8.5); Neutrophils Absolute Auto 6.3 K/mm3 (1.3-6.7); Neutrophils Percent Auto 71.6 % (45.5-73.1); Platelet Count Result 200 k/mm3 (150-375); Red Blood Count 4.47 M/mm3 (4.6-6.20); Red Cell Distribution Width 13.6 % (11.5-14.5); White Blood Count 8.9 K/mm3 (4.5-10.0)
[2024-02-20 21:50] LABS: Alveolar/Arterial O2 Gradient 44.7 mmHg; Fractional Inspired Oxygen 24 %; HCO3 ABG 27.1 mEq/l (22.0-26.0); Oxygen Content ABG 18.5 %vol (16.0-22.0); Oxygen Saturation ABG 96.2 % (95.0-100.0); Oxyhemoglobin 95.9 % THb (90.0-100.0); PCO2 ABG 39.7 mmHg (35.0-45.0); PO2 ABG 79.2 mmHg (80.0-100.0); Total Hemoglobin 13.7 g/dL (12.0-18.0); pH ABG 7.452 (7.350-7.450)
[2024-02-20 21:51] LABS: Device NASAL CANNULA; Modified Allen's Test Pass; Site Drawn RIGHT RADIAL
[2024-02-20 22:01] LABS: Lactic Acid Reflex 1.6 mmol/L (0.7-2.0)
[2024-02-20 22:02] LABS: Alanine Aminotransferase 8 U/L (6-50); Albumin Level 4.3 g/dL (3.5-5.1); Alkaline Phosphatase 70 U/L (38-126); Anion Gap 7 mmol/L (4-12); Aspartate Amino Transferase 20 U/L (17-59); Bilirubin,Total 0.7 mg/dL (0.2-1.3); Blood Urea Nitrogen 16 mg/dL (9-20); Carbon Dioxide 28 mmol/L (22-30); Chloride 109 mmol/L (98-107); Estimated CRCL calculation 94 ml/min; Estimated Glomerular Filt Rate > 60; Glucose 125 mg/dL (65-110); Lipase 44 U/L (23-300); Potassium 3.5 mmol/L (3.4-5.0); Sodium 144 mmol/L (137-145)
[2024-02-20 22:04] LABS: Partial Thromboplastin Time 31.2 Seconds (22.3-36.8)
[2024-02-20 22:07] LABS: Appearance Urine Clear (Clear); Bilirubin Urine Negative (Negative); Blood Urine Negative (Negative); Color Urine Dark Yellow (Yellow); Glucose Urine UA Negative (Negative); Ketones Urine Trace mg/dL (Negative); Leukocyte Esterase Ur Negative LEU/UL (Negative); Nitrate Urine Negative (Negative); Protein Urine Negative (Negative); Specific Grav Ur 1.021 (1.001-1.035)
[2024-02-20 22:11] LABS: NT Pro B Type Natriuretic Pept 409 pg/mL (19.9-100); Troponin I < 0.012 ng/mL (0.000-0.034)
[2024-02-20 22:11] LABS: Add Urine Microscopic? NO
[2024-02-20 22:25] LABS: Influenza A QL RT-PCR Negative (Negative); Influenza B QL RT-PCR Negative (Negative); RSV RNA, RT-PCR Negative (Negative); SARS-CoV-2 RNA PCR Negative (Negative)
[2024-02-20 22:28] LABS: Procalcitonin 0.1 ng/mL
--- NOTE | 2024-02-21 00:48 | ECG_ITS ---
Test Date: 2024-02-21 00:50:58 Measurements Intervals [place] Rate: 64 P: 35 OR: 185 QRS: -1 QRSD: 121 T: 9 QT: 404 QTc: 417 Interpretive Statements SINUS RHYTHM WITHIN NORMAL LIMITS ] Compared to ECG 02/20/2024 21:03:16 NO DIFFERENCE Electronically Signed On 02-21-2024 08:44:46 CDT by Kam Simpson M.D.
[2024-02-21 01:08] VITALS: BP 177/62; PULSE 65; RESP 16; O2SAT 97
[2024-02-21 01:14] LABS: Troponin I < 0.012 ng/mL (0.000-0.034)
[2024-02-21 02:02] VITALS: BP 171/64; PULSE 63; RESP 16; O2SAT 95
--- NOTE | 2024-02-21 02:03 | ED.GENADULT ---
HPI - General Adult General Chief complaint: Shortness of Breath/Dyspnea Stated complaint: SOB Time Seen by Provider: 02/20/24 21:09 History of Present Illness HPI narrative: Patient is a 73-year-old gentleman presents emergency department with chief complaint of shortness of breath. Patient reports that he has been having increasing shortness of breath throughout the day patient has history of Parkinson's the patient does not use oxygen but does wear CPAP at night. The patient be denies fever reports that he has had a dry cough Related Data Home Medications Medication Instructions Recorded Confirmed amantadine HCl 100 mg capsule 100 mg PO TID 09/29/22 01/21/24 pramipexole 1 mg tablet (Mirapex) 1 mg PO TID 09/29/22 01/21/24 Vitamin B-12 1,000 mg PO DAILY 01/16/23 01/21/24 finasteride 5 mg tablet 5 mg PO QHS 07/29/23 01/21/24 gabapentin 600 mg tablet 600 mg PO QHS 07/29/23 01/21/24 calcium polycarbophil 625 mg 1,250 mg PO DAILY 10/26/23 01/21/24 tablet (FiberCon) carbidopa 25 mg-levodopa 250 mg 2.5 tablet PO QID 10/26/23 01/21/24 tablet atomoxetine 25 mg capsule 50 mg PO DAILY 01/08/24 01/21/24 fluticasone propionate 50 2 spray intranasal DAILY PRN 01/08/24 01/21/24 mcg/actuation nasal allergies spray,suspension (Flonase Allergy Relief) tizanidine 4 mg tablet 4 mg PO BID muscle spasticity 01/08/24 01/21/24 trazodone 100 mg tablet 100 mg PO QHS 01/08/24 01/21/24 Allergies Allergy/AdvReac Type Severity Reaction Status Date / Time No Known Allergies Allergy Verified 02/20/24 20:54 Review of Systems Review of Systems: A 10 system review of systems was completed on the patient and is negative except for what is stated in the HPI. Nursing and ancillary documentation was reviewed. [facility] Past Medical History Medical History Asthma Encounter for other specified surgical aftercare Esophageal reflux Extrinsic asthma, unspecified Lymphedema Non-recurrent bilateral inguinal hernia without obstruction or gangrene KYLE on CPAP Parkinson disease Surgical History Surgical History History of ear surgery (~11/2017) Implant - Lt Ear History of removal of cyst (~07/29/17) Rt Testicle History of surgery on arm (~1998) Muscle Tear - Rt History of tooth extraction Family History Family History Father Diabetes mellitus Mother Hypertension Family history of kidney disease Family history of renal failure Sibling Asthma Family history of malignant neoplasm Family history of seizure disorder Family history of sudden , Onset Age: 57 Family history of congestive heart failure, Onset Age: 57 Protein S deficiency Social History Social History Smoking status: Never smoker Second hand tobacco smoke exposure: No Alcohol intake: never Substance use: never Substance use type: does not use Do You Feel Safe in your Home?: Yes Lack of Transportation: No Lack of Food: Never True Current Housing: I Have Housing Concerned About Future Housing: No Difficulty Paying Gas/Electric Bills: No Difficulty Paying for Meds: No Currently Unemployed: No Education: High School Diploma/GED Difficulty w/ Childcare or Family Care: No Spiritual care concerns: No Exam Narrative: GENERAL: Well-appearing, well-nourished, and in no acute distress. HEAD: Normocephalic, atraumatic. EYES: PERRLA and EOMI. ENT: Nares clear, no rhinorrhea or epistaxis. Mucous membranes moist. NECK: Supple. CHEST: Clear to auscultation. No respiratory distress. HEART: Regular rate and rhythm. No murmur heard. Normal peripheral pulses. ABDOMEN: Soft, nontender, nondistended, normal active bowel sounds. EXTREMITIES: Normal range of be
[2024-02-21] MEDS: ALBUTEROL SULFATE (*SP) INHALER 2 PUFF INHALATION (02:20)
[2024-02-21 02:21] VITALS: BP 184/86; PULSE 65; RESP 17; RESP 20; O2SAT 97
[2024-02-21] MEDS: predniSONE 20 MG TABLET 60 MG PO (02:38)
== END 2024-02-21 02:38 | disposition home or self-care (01) ==
PROVIDERS: Emergency Provider Emergency Medicine; PCP Nurse Practitioner Family
DX: R06.02 Shortness of breath (principal); Z20.822 Contact with and (suspected) exposure to COVID-19; G20.A1 Parkinson's disease without dyskinesia, without mention of fluctuations; J45.909 Unspecified asthma, uncomplicated; K21.9 Gastro-esophageal reflux disease without esophagitis; G47.33 Obstructive sleep apnea (adult) (pediatric); Z79.899 Other long term (current) drug therapy
CPT/HCPCS: 36415; 36600; 71045; 71275; 80053; 81003; 82805; 83605; 83690; 83735; 83880; 84145; 84484; 85025; 85610; 85730; 87637; 93005; 94640; 94664; 99284; A9270; J7512; Q9967

== ENCOUNTER 2024-03-10 23:11 | Emergency (ER) | payer MEDICARE, SELFPAY ==
--- NOTE | ~2024-03-10 | CT_ITS ---
Clinical Indication: Shortness of breath CT Scan of the Chest with Contrast: Technique: Contiguous sections were acquired throughout the chest after intravenous administration of 100 cc of Omnipaque 350. Dose reduction technique was used on this scan by utilizing automated expos ure control and iterative reconstruction technique. The dose-length product (DLP) was 830.41 mGy-cm. COMPARISON: 02/20/2024 Findings: There is no evidence of any significant mediastinal, hilar or axillary lymphadenopathy. There is no f illing defect in the pulmonary arterial tree to suggest pulmonary embolus. There is no evidence of ao rtic dissection or aneurysm. There is no evidence of pleural or pericardial effusion. The lungs are clear, aside from mild dependent atelectatic changes. Images through the upper abdomen reveal no abnormalities. Impression: No evidence of pulmonary embolus, aortic dissection, or aortic aneurysm. Mild dependent atelectatic changes, otherwise clear lungs. Reviewed, dictated and finalized at [facility]. Impression: No evidence of pulmonary embolus, aortic dissection, or aortic aneurysm. Mild dependent atelectatic changes, otherwise clear lungs.
--- NOTE | ~2024-03-10 | XR_ITS ---
EXAMINATION: XR chest 2V DATE: 03/10/2024 23:53 INDICATION: Shortness of breath. TECHNIQUE: Frontal and lateral views of the chest were obtained. COMPARISON: Chest single view 02/20/2024, chest CT 02/20/2024 FINDINGS: There is no pneumonia, pleural effusion, or pneumothorax. The heart size is normal. IMPRESSION: 1. No acute cardiopulmonary disease. Reviewed, dictated and finalized at location E.
--- NOTE | 2024-03-10 23:11 | ECG_ITS ---
Test Date: 2024-03-10 23:19:27 Measurements Intervals [place] Rate: 70 P: 6 DC: 161 QRS: -4 QRSD: 122 T: 9 QT: 406 QTc: 439 Interpretive Statements SINUS RHYTHM VOLTAGE CRITERIA FOR LVH CANNOT R/O SEPTAL INFARCT, AGE INDETERMINATE BORDERLINE T WAVE ABNORMALITY- INFERIOR LEADS BASELINE ARTIFACT- I, III, AVR, AVL, AVF, V2-V6 ABNORMAL ECG Compared to ECG 02/21/2024 00:50:58 NO SIGNIFICANT CHANGE Electronically Signed On 03-11-2024 06:45:48 CDT by Alex Stephenson D.O.
[2024-03-10 23:24] VITALS: BP 148/67; PULSE 70; RESP 16; TEMP 36.8; O2SAT 97
[2024-03-10 23:34] LABS: Basophils Percent Auto 0.5 % (0.2-1.2); Eosinophils Absolute Auto 0.3 K/mm3 (0-0.3); Eosinophils Percent Auto 3.7 % (0-4.4); Hematocrit 37.3 % (42.0-52.0); Hemoglobin 12.6 g/dL (14.0-18.0); Immature Granulocyte Absolute 0.02 K/mm3 (0.00-0.031); Immature Granulocyte Percent A 0.2 % (0-0.5); Lymphocytes Absolute Auto 1.47 K/mm3 (0.9-3.2); Lymphocytes Percent Auto 16.6 % (18.3-44.2); Mean Corpuscular HGB Conc 33.8 g/dl (32-36); Mean Corpuscular Hemoglobin 30.2 pg (26-34); Mean Corpuscular Volume 89.4 fl (80-100); Mean Platelet Volume 10.9 fl (7.4-10.4); Monocytes Absolute Auto 0.6 K/mm3 (0.1-0.6); Monocytes Percent Auto 6.5 % (2.6-8.5); Neutrophils Absolute Auto 6.4 K/mm3 (1.3-6.7); Neutrophils Percent Auto 72.5 % (45.5-73.1); Platelet Count Result 164 k/mm3 (150-375); Red Blood Count 4.17 M/mm3 (4.6-6.20); Red Cell Distribution Width 13.9 % (11.5-14.5); White Blood Count 8.9 K/mm3 (4.5-10.0)
[2024-03-10 23:49] LABS: Alanine Aminotransferase 6 U/L (6-50); Alkaline Phosphatase 66 U/L (38-126); Anion Gap 8 mmol/L (4-12); Aspartate Amino Transferase 26 U/L (17-59); Bilirubin,Total 0.7 mg/dL (0.2-1.3); Blood Urea Nitrogen 14 mg/dL (9-20); Calcium 8.6 mg/dL (8.4-10.2); Carbon Dioxide 27 mmol/L (22-30); Chloride 106 mmol/L (98-107); Estimated CRCL calculation 110 ml/min; Estimated Glomerular Filt Rate > 60; Glucose 122 mg/dL (65-110); Potassium 3.1 mmol/L (3.4-5.0); Sodium 141 mmol/L (137-145)
[2024-03-11 00:27] VITALS: BP 107/64; PULSE 69; RESP 17; O2SAT 99
[2024-03-11 01:44] LABS: NT Pro B Type Natriuretic Pept 459 pg/mL (19.9-100)
--- NOTE | 2024-03-11 04:02 | ED.SOB ---
HPI - SOB/Dyspnea General Chief Complaint: Shortness of Breath/Dyspnea Stated Complaint: sob x 1 hour Time Seen by Provider: 03/11/24 00:47 History of Present Illness HPI Narrative: Patient is a 73-year-old male who presents ER with shortness of breath. Began about an hour prior to arrival. Has history of PE recently. He is concerned he may have developed another 1 despite being on anticoagulation. No chest pain or chest pressure. No fevers or chills or sweats. No productive cough. No new swelling to his lower extremities. He is without hemoptysis. Related Data Home Medications Medication Instructions Recorded Confirmed amantadine HCl 100 mg capsule 100 mg PO TID 09/29/22 02/24/24 pramipexole 1 mg tablet (Mirapex) 1 mg PO TID 09/29/22 02/24/24 Vitamin B-12 1,000 mg PO DAILY 01/16/23 02/24/24 finasteride 5 mg tablet 5 mg PO QHS 07/29/23 02/24/24 gabapentin 600 mg tablet 600 mg PO QHS 07/29/23 02/24/24 calcium polycarbophil 625 mg 1,250 mg PO DAILY 10/26/23 02/24/24 tablet (FiberCon) carbidopa 25 mg-levodopa 250 mg 2.5 tablet PO QID 10/26/23 02/24/24 tablet atomoxetine 25 mg capsule 50 mg PO DAILY 01/08/24 02/24/24 fluticasone propionate 50 2 spray intranasal DAILY PRN 01/08/24 02/24/24 mcg/actuation nasal allergies spray,suspension (Flonase Allergy Relief) trazodone 100 mg tablet 100 mg PO QHS 01/08/24 02/24/24 Allergies Allergy/AdvReac Type Severity Reaction Status Date / Time No Known Allergies Allergy Verified 03/10/24 23:27 [facility] Past Medical History Medical History Asthma Encounter for other specified surgical aftercare Esophageal reflux Extrinsic asthma, unspecified Lymphedema Non-recurrent bilateral inguinal hernia without obstruction or gangrene KYLE on CPAP Parkinson disease Surgical History Surgical History History of ear surgery (~11/2017) Implant - Lt Ear History of removal of cyst (~07/29/17) Rt Testicle History of surgery on arm (~1998) Muscle Tear - Rt History of tooth extraction Family History Family History Father Diabetes mellitus Mother Hypertension Family history of kidney disease Family history of renal failure Sibling Asthma Family history of malignant neoplasm Family history of seizure disorder Family history of sudden , Onset Age: 57 Family history of congestive heart failure, Onset Age: 57 Protein S deficiency Social History Social History Smoking status: Never smoker Second hand tobacco smoke exposure: No Alcohol intake: never Substance use: never Substance use type: does not use Do You Feel Safe in your Home?: Yes Lack of Transportation: No Lack of Food: Never True Current Housing: I Have Housing Concerned About Future Housing: No Difficulty Paying Gas/Electric Bills: No Difficulty Paying for Meds: No Currently Unemployed: No Education: High School Diploma/GED Difficulty w/ Childcare or Family Care: No Spiritual care concerns: No Exam Narrative: GENERAL: Chronically ill-appearing, well-nourished, and in no acute distress. HEAD: Normocephalic, atraumatic. ENT: Mucous membranes moist. NECK: Supple. CHEST: Clear to auscultation. No respiratory distress. HEART: Regular rate and rhythm. Normal peripheral pulses. ABDOMEN: Soft, nontender, nondistended. EXTREMITIES: Normal range of motion. No edema. SKIN: Warm, dry, no rash. NEURO: Alert and oriented x3. Resting tremor. PSYCH: Anxious mood and flat affect. Course Course Emergency Course: No etiology for dyspnea. Likely related to anxiety. Discharge home. Vital Signs Vital signs: Vital Signs Temperature 98.3 F 03/10/24 23:24 Pulse Rate 70 03/10/24 23:24 Respiratory Rate 16
[2024-03-11 04:26] VITALS: BP 123/56; PULSE 68; RESP 17; O2SAT 96; O2SAT 97
[2024-03-11 06:16] VITALS: BP 139/62; PULSE 68; RESP 18; O2SAT 94
== END 2024-03-11 06:17 | disposition home or self-care (01) ==
PROVIDERS: Emergency Provider Emergency Medicine; PCP Nurse Practitioner Family
DX: R06.00 Dyspnea, unspecified (principal); F41.9 Anxiety disorder, unspecified; G20.A1 Parkinson's disease without dyskinesia, without mention of fluctuations; J45.909 Unspecified asthma, uncomplicated; G47.33 Obstructive sleep apnea (adult) (pediatric); Z86.711 Personal history of pulmonary embolism; Z79.01 Long term (current) use of anticoagulants; Z79.82 Long term (current) use of aspirin; Z79.899 Other long term (current) drug therapy
CPT/HCPCS: 36415; 71046; 71275; 80053; 83880; 85025; 93005; 99284; Q9967

== ENCOUNTER 2024-03-15 13:52 | Outpatient (CLI) | payer MEDICARE, SELFPAY ==
--- NOTE | ~2024-03-15 | US_ITS ---
BILATERAL LOWER EXTREMITY VENOUS ULTRASOUND Ordering provider: Teresa Oshea APRN History: . I26.99 - Other pulmonary embolism without acute cor pulmo... . Comparison: None. FINDINGS: RIGHT LOWER EXTREMITY VEINS: --COMMON FEMORAL: Patent and free of thrombus. Normal compressibility, phasic flow and augmentation. --PROXIMAL SUPERFICIAL FEMORAL: Patent and free of thrombus. Normal compressibility, phasic flow and augmentation. --DISTAL SUPERFICIAL FEMORAL: Patent and free of thrombus. Normal compressibility, phasic flow and au gmentation. --POPLITEAL: Patent and free of thrombus. Normal compressibility, phasic flow and augmentation. --POSTERIOR TIBIAL: Patent and free of thrombus. Normal compressibility, phasic flow and augmentation . LEFT LOWER EXTREMITY VEINS: --COMMON FEMORAL: Patent and free of thrombus. Normal compressibility, phasic flow and augmentation. --PROXIMAL SUPERFICIAL FEMORAL: Patent and free of thrombus. Normal compressibility, phasic flow and augmentation. --DISTAL SUPERFICIAL FEMORAL: Patent and free of thrombus. Normal compressibility, phasic flow and au gmentation. --POPLITEAL: Patent and free of thrombus. Normal compressibility, phasic flow and augmentation. --POSTERIOR TIBIAL: Patent and free of thrombus. Normal compressibility, phasic flow and augmentation . IMPRESSION: Negative bilateral lower extremity venous US. No deep vein thrombosis. Reviewed, dictated and finalized at location A.
== END 2024-03-15 13:53 | disposition home or self-care (01) ==
PROVIDERS: PCP Nurse Practitioner Family; Visit Provider Nurse Practitioner Family
DX: I26.99 Other pulmonary embolism without acute cor pulmonale (principal)
CPT/HCPCS: 93970

== ENCOUNTER 2024-06-25 11:44 | Observation (INO) | payer MEDICARE, SELFPAY ==
[2024-06-25] VITALS (13 sets, daily range): BP systolic 133–165; BP diastolic 44–67; PULSE 71–101; RESP 16–25; TEMP 36.7–37.8; O2SAT 94–100; BMI 40.6
--- NOTE | ~2024-06-25 | XR_ITS ---
EXAMINATION: XR chest 2V DATE: 06/25/2024 12:39 INDICATION: Weakness. Confusion. TECHNIQUE: Frontal and lateral views of the chest were obtained. COMPARISON: Chest 2 views 03/10/2024 FINDINGS: The lung volumes are small. There is mild atelectasis in the lower lung zones. No pleural e ffusion or pneumothorax. The heart size is normal. IMPRESSION: 1. Small lung volumes with mild atelectasis in the lower lung zones. Reviewed, dictated and finalized at location A.
--- NOTE | ~2024-06-25 | CT_ITS ---
EXAMINATION: CT cervical spine wo con DATE: 06/25/2024 13:59 INDICATION: Fall, injury TECHNIQUE: Computed tomography (CT) of the cervical spine was performed without intravenous contrast. Automated exposure control and iterative reconstruction technique were employed. Exam dose: 472.11 mGy-cm total exam DLP. COMPARISON: None FINDINGS: Normal alignment at the atlantoaxial joints and at C1 and C2. The odontoid process is intac t. No fracture or dislocation or locked facet. No prevertebral soft tissue swelling. There is approximately 1.6 mm anterolisthesis at C4-5. There is severe degenerative disc disease at C5-6 and moderately severe degenerative disc disease at C6-7 and C7-T1. There is degenerative change at the apophyseal joints, most prominent at C4-5. IMPRESSION: Moderately severe cervical spondylosis; no fracture or dislocation or locked facet Reviewed, dictated and finalized at Location A. Reviewed, dictated and finalized at location A.
--- NOTE | ~2024-06-25 | XR_ITS ---
XR chest 1V portable Ordering provider: Duyen Rajan DO History: 74 years Male with . Respiratory distress . Comparison: June 25, 2024 FINDINGS: MEDIASTINUM: The cardiac silhouette is moderately enlarged. Congestive bernard. LUNGS: No effusions or pneumothorax. Bilateral interstitial opacification suggestive of pulmonary monica ma. Superimposed pneumonia is not excluded. Opacity seen in the left lower lobe area which is suggestive of atelectasis versus pneumonia. OTHER: No free air under the diaphragm. IMPRESSION: Cardiomegaly with cardiac decompensation and pulmonary edema. Superimposed pneumonitis is highly sugg estive Reviewed, dictated and finalized at location A. IMPRESSION: Cardiomegaly with cardiac decompensation and pulmonary edema. Superimposed pneu monitis is highly suggestive
--- NOTE | ~2024-06-25 | CT_ITS ---
CT abdomen pelvis w con Ordering provider: MAYITO Friedman History: 74 years Male with . gross hematuria . Comparison: January 08, 2024 Technique: CT abdomen and pelvis with IV and without oral contrast. Automated exposure control and it erative reconstruction technique were employed. The dose-length product was 1594.81 mGy-cm. 100 mL Om nipaque 350 was given IV. Findings: VISUALIZED LOWER CHEST: Emphysematous changes. Trace of effusion on the left side. Left basal atelect asis. Dependent atelectasis with subsegmental atelectasis in the right lung base. UPPER ABDOMINAL ORGANS: Liver: Hepatomegaly Gallbladder: Normal. Spleen: Normal. Stomach/duodenum: Normal. Pancreas: Normal. Adrenals: Normal. Kidneys: Hypodensity seen in the right kidney midpole most likely small cysts or scarring. Tiny cyst in the right kidney lower pole. Tiny stone in the right kidney lower pole. Small cysts in the left kidney midpole. PELVIC ORGANS: The bladder is underfilled. Slightly thickened wall. Prostatic calcifications. BOWEL AND MESENTERY: Colon: No evidence of diverticulitis. Fecal material seen in the colon suggestive of constipation.The appendix is not demonstrated. Small Bowel: Normal. No obstruction. Peritoneum/mesentery: No free air or free fluid. No mesenteric lymphadenopathy. RETROPERITONEUM: Mild atheromatous disease of the abdominal aorta. No retroperitoneal lymphadenopat hy. MUSCULOSKELETAL: Superficial soft tissues: Large Left inguinal fat containing hernia. Small right inguinal hernia with fat content. The superficial soft tissues are normal. Bones: Severe degenerative changes of the spine. Levoscoliosis. IMPRESSION: 1. Hepatomegaly. 2. Tiny stone in the right kidney lower pole. 3. No evidence of appendicitis, diverticulitis or intestinal obstruction. 4. Underfilled urinary bladder with thickened wall. Clinical correlation advised. 5. Bilateral fat containing inguinal areas larger on the left side. 6. Constipation. Reviewed, dictated and finalized at location A. IMPRESSION: 1. Hepatomegaly. 2. Tiny stone in the right kidney lower pole. 3. No evidence of appendicitis, diverticulitis or intestinal obstruction. 4. Underfilled urinary bladder with thickened wall. Clinical correlation advis ed. 5. Bilateral fat containing inguinal areas larger on the left side. 6. Constipation.
--- NOTE | ~2024-06-25 | CT_ITS ---
EXAMINATION: CT brain wo con DATE: 06/25/2024 13:58 INDICATION: Fall. TECHNIQUE: Computed tomography (CT) of the head was performed without intravenous contrast. The mA wa s adjusted according to patient size. Iterative reconstruction technique was employed. The dose-lengt h product was 605.33 mGy-cm. COMPARISON: Head CT 09/03/2023 FINDINGS: There is no intracranial hemorrhage, acute infarction, or abnormal intracranial mass lesion . There are scattered areas of low attenuation in the cerebral white matter, which is within normal l imits for the patient's age. The ventricles are normal in size. There is mild mucosal thickening in t he paranasal sinuses. The orbits are normal. The mastoid air cells are normal. IMPRESSION: 1. Normal aging brain. Reviewed, dictated and finalized at location A. IMPRESSION: 1. Normal aging brain.
--- NOTE | 2024-06-25 11:54 | ECG_ITS ---
Test Date: 2024-06-25 11:59:42 Measurements Intervals [place] Rate: 98 P: 20 MS: 175 QRS: -7 QRSD: 118 T: 21 QT: 359 QTc: 459 Interpretive Statements SINUS RHYTHM MODERATE INTRAVENTRICULAR CONDUCTION DELAY [110+ ms QRS DURATION] NONSPECIFIC T-WAVE ABNORMALITY Compared to ECG 03/10/2024 23:19:27 Intraventricular conduction delay now present T-wave abnormality now present Left ventricular hypertrophy no longer present Myocardial infarct finding no longer present Electronically Signed On 06-25-2024 13:17:32 CDT by Pedro Cho M.D.
[2024-06-25 12:03] LABS: Basophils Percent Auto 0.3 % (0.2-1.2); Eosinophils Absolute Auto 0.1 K/mm3 (0-0.3); Eosinophils Percent Auto 0.4 % (0-4.4); Hematocrit 42.9 % (42.0-52.0); Hemoglobin 13.8 g/dL (14.0-18.0); Immature Granulocyte Absolute 0.07 K/mm3 (0.00-0.031); Immature Granulocyte Percent A 0.6 % (0-0.5); Lymphocytes Percent Auto 4.2 % (18.3-44.2); Mean Corpuscular HGB Conc 32.2 g/dl (32-36); Mean Corpuscular Hemoglobin 28.6 pg (26-34); Mean Platelet Volume 11.9 fl (7.4-10.4); Monocytes Percent Auto 8.5 % (2.6-8.5); Neutrophils Absolute Auto 10.2 K/mm3 (1.3-6.7); Platelet Count Result 158 k/mm3 (150-375); Red Blood Count 4.82 M/mm3 (4.6-6.20); Red Cell Distribution Width 13.2 % (11.5-14.5); White Blood Count 11.8 K/mm3 (4.5-10.0)
[2024-06-25 13:29] LABS: Add Urine Microscopic? NO; Appearance Urine Clear (Clear); Bilirubin Urine Negative (Negative); Blood Urine Negative (Negative); Color Urine Yellow (Yellow); Glucose Urine UA Negative (Negative); Ketones Urine Trace mg/dL (Negative); Leukocyte Esterase Ur Negative LEU/UL (Negative); Nitrate Urine Negative (Negative); Protein Urine Negative (Negative); Specific Grav Ur 1.024 (1.001-1.035)
[2024-06-25 13:31] LABS: Lactic Acid Reflex 1.2 mmol/L (0.7-2.0)
[2024-06-25 13:32] LABS: Alanine Aminotransferase 7 U/L (6-50); Albumin Level 4.2 g/dL (3.5-5.1); Alkaline Phosphatase 72 U/L (38-126); Anion Gap 9 mmol/L (4-12); Aspartate Amino Transferase 31 U/L (17-59); Blood Urea Nitrogen 23 mg/dL (9-20); Carbon Dioxide 28 mmol/L (22-30); Chloride 103 mmol/L (98-107); Estimated CRCL calculation 77 ml/min; Estimated Glomerular Filt Rate > 60; Glucose 100 mg/dL (65-110); Potassium 3.6 mmol/L (3.4-5.0); Sodium 140 mmol/L (137-145)
[2024-06-25 13:55] LABS: Influenza A QL RT-PCR Negative (Negative); Influenza B QL RT-PCR Negative (Negative); SARS-CoV-2 RNA PCR Positive (Negative)
--- NOTE | 2024-06-25 14:05 | ED.WEAKNESS ---
HPI - Weakness General Chief complaint: Weakness Stated complaint: gen weakness, multiple falls today Time Seen by Provider: 06/25/24 12:28 Source: patient, family and RN notes reviewed Limitations: no limitations History of Present Illness HPI Narrative: This is a 74 year old male with history of parkinson's who presents for evaluation of weakness and frequent falls. His daughter states has been having increasing weakness this week and frequent falls. He was unable to get up off a bench this morning due to weakness. PAtient fell over striking his head twice today. PAtient denies headache, nausea, vomiting, abdominal pain. He reports constipation. Denies any medication changes. Related Data Home Medications Medication Instructions Recorded Confirmed amantadine HCl 100 mg capsule 100 mg PO TID 09/29/22 06/25/24 pramipexole 1 mg tablet (Mirapex) 1 mg PO TID 09/29/22 06/25/24 gabapentin 600 mg tablet 600 mg PO QHS 07/29/23 06/25/24 carbidopa 25 mg-levodopa 250 mg 2.5 tablet PO QID 10/26/23 06/25/24 tablet atomoxetine 25 mg capsule 25 mg PO BID 01/08/24 06/25/24 fluticasone propionate 50 2 spray intranasal PRN PRN 01/08/24 06/25/24 mcg/actuation nasal allergies spray,suspension (Flonase Allergy Relief) trazodone 100 mg tablet 100 mg PO QHS 01/08/24 06/25/24 omeprazole 40 mg capsule,delayed 40 mg PO ONCE 06/25/24 06/25/24 release vibegron 75 mg tablet (Gemtesa) 75 mg PO DAILY 06/25/24 06/25/24 Allergies Allergy/AdvReac Type Severity Reaction Status Date / Time No Known Allergies Allergy Verified 06/23/24 09:06 Review of Systems Constitutional: Constitutional: Reports weakness Respiratory: Respiratory: Reports cough and Denies dyspnea Gastrointestinal: Gastrointestinal: Reports constipation, Denies heartburn and Denies diarrhea Neurologic: Denies headache(s), Denies focal weakness and Reports weakness PMFSH Past Medical History Medical History Asthma Encounter for other specified surgical aftercare Esophageal reflux Extrinsic asthma, unspecified Lymphedema Non-recurrent bilateral inguinal hernia without obstruction or gangrene KYLE on CPAP Parkinson disease Pulmonary embolism Surgical History Surgical History H/O hernia repair History of ear surgery (~11/2017) Implant - Lt Ear History of removal of cyst (~07/29/17) Rt Testicle History of surgery on arm (~1998) Muscle Tear - Rt History of tooth extraction Family History Family History Father Diabetes mellitus Mother Hypertension Family history of kidney disease Family history of renal failure Sibling Asthma Family history of malignant neoplasm Family history of seizure disorder Family history of sudden , Onset Age: 57 Family history of congestive heart failure, Onset Age: 57 Protein S deficiency Social History Social History Social History: Retired. Planned to move into assisted living at [facility] on July 04. He is . His has dementia and was just placed into memory care. Smoking status: Never smoker Second hand tobacco smoke exposure: No Alcohol intake: never Substance use: never Substance use type: does not use Do You Feel Safe in your Home?: No Lack of Transportation: No Lack of Food: Never True Current Housing: I Have Housing Concerned About Future Housing: No Difficulty Paying Gas/Electric Bills: No Difficulty Paying for Meds: No Currently Unemployed: No Education: High School Diploma/GED Difficulty w/ Childcare or Family Care: No Living arrangements: with family Occupation/Education: retired Gender identity (if verbalized by the patient): Male Sexual Orientation (if Verbalized by the Patient): Straight or Heterosexual Spiritual care concerns: No Agree to blood products: Yes Exam Const: General: alert Orientation/consciousness: patient oriented x3 Other: lethargic HENMT: Head: normal to inspection Mouth: Yes Normal oral and palatal mucosa present and Yes moist mucous membranes Eyes: Pupils: Equal, round and reactive pupils present EOM: EOMs intact bilaterally Neck: Other: in collar Chest: Chest palpation & inspection: normal inspection of the chest Resp: Effort & Inspection: normal respiratory effort Auscultation: clear to auscultation bilaterally Cardio: Rate: regular rate Rhythm: regular rhythm Heart sounds: no murmurs GI: GI Palp: Yes Soft to palpation, No Tenderness to palpation present (GI), No Guarding due to palpation present (GI) and No Rigid due to palpation Auscultation: normal bowel sounds Neuro: General: patient oriented x3 and moves all extremities Psych: Mental Status: mental status grossly normal Affect: normal affect Attitude: cooperative Course Reevaluation(s) Reevaluation #1: I discussed with family that patient found to have covid. Will need to trial ambulation to see if can go home. he lives alone with multiple falls. Date: 06/25/24 Time: 14:51 Vital Signs Vital signs: Vital Signs Temperature 99.2 F 06/25/24 11:44 Pulse Rate 97 06/25/24 11:44 Respiratory Rate 25 H 06/25/24 11:44 Blood Pressure 151/57 H 06/25/24 11:44 Pulse Oximetry 100 06/25/24 11:44 Oxygen Delivery Room Air 06/25/24 11:44 Temperature 98.1 F 06/27/24 05:43 Pulse Rate 75 06/27/24 05:43 Respiratory Rate 28 H 06/27/24 05:43 Blood Pressure 157/42 H 06/27/24 05:43 Pulse Oximetry 95 06/27/24 05:43 Oxygen Delivery Room Air 06/26/24 21:30 MDM - Weakness Differential Diagnosis Differential diagnosis: Likely anemia, hypoglycemia, sepsis, dehydration and other (pneumonia, head injury) Medical Records Attestation: I reviewed the patient's medical records. Lab Data Attestation: I reviewed the patient's lab results. 06/25/24 11:56 06/25/24 13:14 Labs: Lab Results 06/25/24 06/25/24 06/25/24 Range/Units 11:56 13:14 13:19 WBC 11.8 H (4.5-10.0) K/mm3 RBC 4.82 (4.6-6.20) M/mm3 Hgb 13.8 L (14.0-18.0) g/dL Hct 42.9 (42.0-52.0) % MCV 89.0 (80-100) fl MCH 28.6 (26-34) pg MCHC 32.2 (32-36) g/dl RDW 13.2 (11.5-14.5) % Plt Count 158 (150-375) k/mm3 MPV 11.9 H (7.4-10.4) fl Immature Gran % (Auto) 0.6 H (0-0.5) % Neut % (Auto) 86.0 H (45.5-73.1) % Lymph % (Auto) 4.2 L (18.3-44.2) % [place] % (Auto) 8.5 (2.6-8.5) % Eos % (Auto) 0.4 (0-4.4) % Baso % (Auto) 0.3 (0.2-1.2) % Lymph # (Auto) 0.50 L (0.9-3.2) K/mm3 [place] # (Auto) 1.0 H (0.1-0.6) K/mm3 Eos # (Auto) 0.1 (0-0.3) K/mm3 Baso # (Auto) 0.0 (0.0-0.1) K/mm3 Abs Immat Gran (auto) 0.07 H (0.00-0.031) K/mm3 Absolute Neuts (auto) 10.2 H (1.3-6.7) K/mm3 Absolute Nucleated RBC 0.000 (0.0-0.012) K/mm3 Nucleated RBC % 0.0 (0.0-0.2) % Sodium 140 (137-145) mmol/L Potassium 3.6 (3.4-5.0) mmol/L Chloride 103 (98-107) mmol/L Carbon Dioxide 28 (22-30) mmol/L Anion Gap 9 (4-12) mmol/L BUN 23 H (9-20) mg/dL Creatinine 0.90 (0.7-1.3) mg/dL Estim Creat Clear Calc 77 ml/min Estimated GFR > 60 (59 - ) Glucose 100 (65-110) mg/dL Lactic Acid 1.2 (0.7-2.0) mmol/L Calcium 9.0 (8.4-10.2) mg/dL Total Bilirubin 1.0 (0.2-1.3) mg/dL AST 31 (17-59) U/L ALT 7 (6-50) U/L Alkaline Phosphatase 72 (38-126) U/L Total Protein 7.0 (6.3-8.2) g/dL Albumin 4.2 (3.5-5.1) g/dL Urine Color Yellow (Yellow) Urine Appearance Clear (Clear) Urine pH 5.0 (5.0-9.0) Ur Specific [place] 1.024 (1.001-1.035) Urine Protein Negative (Negative) mg/dL Urine Glucose (UA) Negative (Negative) mg/dL Urine Ketones Trace H (Negative) mg/dL Ur Blood (Man) Negative (Negative) Urine Nitrate Negative (Negative) Urine Bilirubin Negative (Negative) Urine Urobilinogen 1.0 (<2.0) mg/dL Leukocyte Esterase Rfl Negative (Negative) GUILLE/UL Influenza A (RT-PCR) Negative (Negative) Influenza B (RT-PCR) Negative (Negative) SARS-CoV-2 RNA (RT-PCR) Positive A (Negative) Imaging Data Radiologist's impression: ITS Impressions Chest X-Ray 06/25/24 12:44 IMPRESSION: 1. Small lung volumes with mild atelectasis in the lower lung zones. Head CT 06/25/24 13:59 IMPRESSION: 1. Normal aging brain. Cervical Spine CT 06/25/24 14:30 IMPRESSION: Moderately severe cervical spondylosis; no fracture or dislocation or locked facet Discharge Plan Discharge Clinical Impression: COVID-19, Generalized weakness, Frequent falls Patient Disposition: Still a Patient Condition: Stable Time of Disposition: 16:32 Sign Out Sign Out Data: Patient Sign Out occurred on 06/25/24 at 14:57. Patient's care was discussed, and care was transferred from Gloria Winkler MD to Kuldip Vaca MD.
[2024-06-25] MEDS: SODIUM CHLORIDE 0.9% IV 1,000 ML 999 ML IV CONT (14:26)
[2024-06-25] MEDS: ACETAMINOPHEN 500 MG TABLET 1000 MG PO (15:10)
--- NOTE | 2024-06-25 16:02 | PC.NURSE ---
pt usually ambulates with walker only and without assistance. pt was unable to sit up with assistance and stated they felt too weak.
--- NOTE | 2024-06-25 17:00 | PC.NURSE ---
ordered patient meal tray to be sent to [facility]
--- NOTE | 2024-06-25 18:26 | ADMGEN ---
This patient, Ori Bernardo, was admitted to 3 [facility] Surg Room 309-01. Patient/family oriented to hospital policies and general routines including ID bracelet, bed and alarms, visiting hours, pain management, procedures, bathroom and other care routines, personal items, smoking policy, room service/diet, and visiting hours. Information on how to activate the Rapid Response Team has been discussed. Patient/Family are encouraged to report perceived risks to care and to ask questions if they do not understand what they are told or what they should do.
[2024-06-25] MEDS: CARBIDOPA/LEVODOPA 25/250 MG TABLET 2 TABLET PO (20:13)
[2024-06-25] MEDS: traZODone HCL 50 MG TABLET 100 MG PO (20:14)
[2024-06-25] MEDS: LEVODOPA PO (20:14)
[2024-06-25] MEDS: GABAPENTIN 300 MG CAPSULE 600 MG PO (20:14)
[2024-06-25] MEDS: CARBIDOPA PO (20:14)
--- NOTE | 2024-06-25 21:24 | P.HP_ITS ---
H&P: HPI History of Present Illness Date/Time: 06/25/24 21:24 Chief Complaint: weakness Narrative: This is a 74-year-old male with a significant past medical history Parkinson's, obstructive sleep apnea, GERD, neuropathy who presented to the hospital for evaluation of weakness and frequent falls. Patient states that he has not been feeling very well for the last couple of days and has been running a low-grade temp with some mild congestion. He states he was so weak that he could not stand up from a sitting position and ended up falling striking head. .He denies any Headache, nausea, vomiting, diarrhea, abdominal pain, chest pain, shortness a breath. He is currently on room air and does not appear to be in any acute respiratory distress. of note patient was planning on moving into assisted living on July 04 however due to his weakness family brought him here for possible rehab needs. Workup in the hospital includes a chest x-ray which showed small lung volumes with mild atelectasis in the lower lung zones. A head CT which was negative for any acute intracranial process, showed normal aging brain. Cervical spine CT shown moderately severe cervical spondylosis, no fracture dislocation. Initial labs showed a white blood cell count of 11.8, hemoglobin 13.8, otherwise unremarkable. A UA was obtained and showed trace ketones otherwise unremarkable. Respiratory panel was positive for COVID. He was given 1 L of normal saline and some Tylenol while in the emergency room. Review of Systems Review of Systems: All systems reviewed & are unremarkable except as noted in HPI and below Constitutional: Constitutional: Reports as per HPI and Reports no additional constitutional complaints Eyes: Eyes: Reports as per HPI and Reports no additional eye complaints ENT: Reports system reviewed and no additional complaints, except as documented and Reports as per HPI Cardiovascular: Cardiovascular: Reports as per HPI and Reports no additional cardiovascular complaints Respiratory: Respiratory: Reports as per HPI and Reports no additional respiratory complaints Gastrointestinal: Gastrointestinal: Reports as per HPI and Reports no additional gastrointestinal complaints Genitourinary: Genitourinary: Reports no additional male genitourinary complaints and Reports as per HPI Musculoskeletal: Musculoskeletal: Reports no additional musculoskeletal complaints and Reports as per HPI Integumentary/Breasts: Skin/Breast: Reports system reviewed and no additional complaints, except as docu and Reports as per HPI Neurologic: Reports system reviewed and no additional complaints, except as documented and Reports as per HPI Psychiatric: Psychiatric: Reports no additional psychiatric complaints and Reports as per HPI [facility] Past Medical History Medical History Asthma Encounter for other specified surgical aftercare Esophageal reflux Extrinsic asthma, unspecified Lymphedema Non-recurrent bilateral inguinal hernia without obstruction or gangrene KYLE on CPAP Parkinson disease Pulmonary embolism Surgical History Surgical History H/O hernia repair History of ear surgery (~11/2017) Implant - Lt Ear History of removal of cyst (~07/29/17) Rt Testicle History of surgery on arm (~1998) Muscle Tear - Rt History of tooth extraction Family History Family History Father Diabetes mellitus Mother Hypertension Family history of kidney disease Family history of renal failure Sibling Asthma Family history of malignant neoplasm Family history of seizure disorder Family history of sudden , Onset Age: 57 Family history of congestive heart failure, Onset Age: 57 Protein S deficiency Social History Social History Social History: Retired. Planned to move into assisted living at [facility] on July 04. He is . His has dementia and was just placed into memory care. Smoking status: Never smoker Second hand tobacco smoke exposure: No Alcohol intake: never Substance use: never Substance use type: does not use Do You Feel Safe in your Home?: No Lack of Transportation: No Lack of Food: Never True Current Housing: I Have Housing Concerned About Future Housing: No Difficulty Paying Gas/Electric Bills: No Difficulty Paying for Meds: No Currently Unemployed: No Education: High School Diploma/GED Difficulty w/ Childcare or Family Care: No Living arrangements: with family Occupation/Education: retired Gender identity (if verbalized by the patient): Male Sexual Orientation (if Verbalized by the Patient): Straight or Heterosexual Spiritual care concerns: No Agree to blood products: Yes Meds Home Medications and Allergies Home Medications Medication Instructions Recorded Confirmed Type amantadine HCl 100 mg capsule 100 mg PO TID 09/29/22 06/25/24 History pramipexole 1 mg tablet (Mirapex) 1 mg PO TID 09/29/22 06/25/24 History gabapentin 600 mg tablet 600 mg PO QHS 07/29/23 06/25/24 History carbidopa 25 mg-levodopa 250 mg 2.5 tablet PO QID 10/26/23 06/25/24 History tablet atomoxetine 25 mg capsule 25 mg PO BID 01/08/24 06/25/24 History fluticasone propionate 50 2 spray intranasal PRN PRN 01/08/24 06/25/24 History mcg/actuation nasal allergies spray,suspension (Flonase Allergy Relief) trazodone 100 mg tablet 100 mg PO QHS 01/08/24 06/25/24 History tizanidine 4 mg tablet 4 mg PO BID muscle spasticity #180 02/22/24 06/25/24 Rx tabs omeprazole 40 mg capsule,delayed 40 mg PO ONCE 06/25/24 06/25/24 History release vibegron 75 mg tablet (Gemtesa) 75 mg PO DAILY 06/25/24 06/25/24 History Allergies Allergy/AdvReac Type Severity Reaction Status Date / Time No Known Allergies Allergy Verified 06/23/24 09:06 Vital Signs Vital Signs - 24 hr 06/25/24 11:44 06/25/24 11:57 06/25/24 13:14 Temperature 99.2 F Pulse Rate 97 100 Respiratory Rate 25 H 24 H Blood Pressure 151/57 H 154/64 H Pulse Oximetry 100 100 95 Oxygen Delivery Room Air Room Air 06/25/24 14:28 06/25/24 13:31 06/25/24 14:30 Temperature 100.0 F H Pulse Rate 100 101 H Respiratory Rate 25 H 24 H Blood Pressure 162/63 H 165/67 H Pulse Oximetry 97 96 Oxygen Delivery 06/25/24 14:32 06/25/24 15:30 06/25/24 16:30 Temperature Pulse Rate 101 H 91 88 Respiratory Rate 20 24 H 17 Blood Pressure 159/66 H Pulse Oximetry 98 98 94 Oxygen Delivery 06/25/24 16:56 06/25/24 15:40 06/25/24 17:00 Temperature 98.1 F 99 F Pulse Rate 78 Respiratory Rate 16 Blood Pressure 146/55 H Pulse Oximetry 97 Oxygen Delivery 06/25/24 18:33 06/25/24 20:55 Temperature 98.3 F Pulse Rate 71 Respiratory Rate 18 Blood Pressure 133/44 L Pulse Oximetry 94 Oxygen Delivery Room Air Exam Narrative: General:Acutely ill appearing, fatigued, well nourished Head: atraumatic, no encephalopathy Eyes: EOMI, PERRLA, sclera clear ENT: moist mucous membranes, nasal passages clear Neck: supple, no JVD, no adenopathy, trachea midline Cardiac: Normal S1 and S2. No murmur, gallops or friction rubs, peripheral pulses intact. Respiratory: Lungs clear to auscultation, no adventitious lung sounds, currently on room air Gastrointestinal: soft, non-distended, non-tender, normoactive bowel sounds. : voiding without difficulty. Extremities: no edema Skin: clean, dry, intact. No wounds or lesions. Neuro: Alert and oriented x4, cranial nerves intact, no neuro deficits. Psych: normal mood, normal affect, interactive H&P: Results Labs Labs: Short CBC 06/25/24 Range/Units 11:56 WBC 11.8 H (4.5-10.0) K/mm3 Hgb 13.8 L (14.0-18.0) g/dL Hct 42.9 (42.0-52.0) % Plt Count 158 (150-375) k/mm3 BMP 06/25/24 13:14 Sodium 140 Potassium 3.6 Chloride 103 Carbon Dioxide 28 BUN 23 H Creatinine 0.90 Glucose 100 Calcium 9.0 Liver Function 06/25/24 Range/Units 13:14 Total Bilirubin 1.0 (0.2-1.3) mg/dL AST 31 (17-59) U/L ALT 7 (6-50) U/L Alkaline Phosphatase 72 (38-126) U/L Albumin 4.2 (3.5-5.1) g/dL Urine 06/25/24 Range/Units 13:19 Urine Color Yellow (Yellow) Urine Appearance Clear (Clear) Urine pH 5.0 (5.0-9.0) Ur Specific [place] 1.024 (1.001-1.035) Urine Protein Negative (Negative) mg/dL Urine Glucose (UA) Negative (Negative) mg/dL Imaging Chest x-ray: Radiologist's impression: EXAMINATION: XR chest 2V DATE: 06/25/2024 12:39 INDICATION: Weakness. Confusion. TECHNIQUE: Frontal and lateral views of the chest were obtained. COMPARISON: Chest 2 views 03/10/2024 FINDINGS: The lung volumes are small. There is mild atelectasis in the lower lung zones. No pleural effusion or pneumothorax. The heart size is normal. IMPRESSION: 1. Small lung volumes with mild atelectasis in the lower lung zones. Reviewed, dictated and finalized at location A. CT scan - head: Radiologist's impression: EXAMINATION: CT brain wo con DATE: 06/25/2024 13:58 INDICATION: Fall. TECHNIQUE: Computed tomography (CT) of the head was performed without intravenous contrast. The mA was adjusted according to patient size. Iterative reconstruction technique was employed. The dose-length product was 605.33 mGy- cm. COMPARISON: Head CT 09/03/2023 FINDINGS: There is no intracranial hemorrhage, acute infarction, or abnormal intracranial mass lesion. There are scattered areas of low attenuation in the cerebral white matter, which is within normal limits for the patient's age. The ventricles are normal in size. There is mild mucosal thickening in the paranasal sinuses. The orbits are normal. The mastoid air cells are normal. IMPRESSION: 1. Normal aging brain. Reviewed, dictated and finalized at location A. cervical spine CT: Radiologist's impression: EXAMINATION: CT cervical spine wo con DATE: 06/25/2024 13:59 INDICATION: Fall, injury TECHNIQUE: Computed tomography (CT) of the cervical spine was performed without intravenous contrast. Automated exposure control and iterative reconstruction technique were employed. Exam dose: 472.11 mGy-cm total exam DLP. COMPARISON: None FINDINGS: Normal alignment at the atlantoaxial joints and at C1 and C2. The odontoid process is intact. No fracture or dislocation or locked facet. No prevertebral soft tissue swelling. There is approximately 1.6 mm anterolisthesis at C4-5. There is severe degenerative disc disease at C5-6 and moderately severe degenerative disc disease at C6-7 and C7-T1. There is degenerative change at the apophyseal joints, most prominent at C4-5. IMPRESSION: Moderately severe cervical spondylosis; no fracture or dislocation or locked facet Reviewed, dictated and finalized at Location A. Reviewed, dictated and finalized at location A. Assessment and Plan Assessment and plan (1) COVID: Code(s): U07.1 - COVID-19 Status: Acute Assessment and Plan: * Respiratory panel positive for COVID * Continue supportive care * Not requiring O2 and no acute distress, will hold off on giving Remdesivir * continue Flonase (2) Weakness: Code(s): R53.1 - Weakness Status: Acute Assessment and Plan: * PT and OT ordered * Case coordination consulted for SNF (3) Frequent falls: Code(s): R29.6 - Repeated falls Status: Acute Assessment and Plan: * secondary to weakness, complicated by COVID infection * Continue fall precautions (4) Parkinson disease: Qualifiers: Dyskinesia presence: unspecified whether dyskinesia Fluctuating manifestations: unspecified whether manifestations fluctuate Qualified Code(s): G20.A1 - Parkinson's disease without dyskinesia, without mention of fluctuations Code(s): G20 - Parkinson's disease Status: Acute Assessment and Plan: * continue amantadine, Sinemet, Mirapex, and Zanaflex (5) Obstructive sleep apnea (adult) (pediatric): Code(s): G47.33 - Obstructive sleep apnea (adult) (pediatric) Status: Acute Assessment and Plan: * CPAP ordered
[2024-06-26] VITALS (8 sets, daily range): BP systolic 108–147; BP diastolic 42–74; PULSE 72–95; RESP 18–22; TEMP 36.6–38.5; O2SAT 93–97
[2024-06-26] MEDS: LEVODOPA PO ×4 (06:42→21:06)
[2024-06-26] MEDS: CARBIDOPA/LEVODOPA 25/250 MG TABLET 2 TABLET PO ×4 (06:42→21:06)
[2024-06-26] MEDS: CARBIDOPA PO ×4 (06:42→21:06)
[2024-06-26] MEDS: PRAMIPEXOLE 1 MG TABLET PO ×3 (08:57→16:56)
[2024-06-26] MEDS: TIZANIDINE HCL 4 MG TABLET PO ×2 (08:57→16:56)
[2024-06-26] MEDS: ENOXAPARIN 40 MG/0.4 ML SYRINGE SUB-Q (08:57)
[2024-06-26] MEDS: AMANTADINE HCL 100 MG CAPSULE PO ×3 (08:58→16:56)
--- NOTE | 2024-06-26 14:11 | P.PNIM_ITS ---
Progress Note: A&P Assessment and Plan (1) COVID: Code(s): U07.1 - COVID-19 Status: Acute Assessment and Plan: * Respiratory panel positive for COVID. * Good O2 sats on RA > 92 %. * Does not meet criteria for Remdesivir currently and we'll hold. * Continue supportive care. * continue Flonase (2) Weakness: Code(s): R53.1 - Weakness Status: Acute Assessment and Plan: * Possibly related to Parkinson's and worsened by # 1 above. * Continue PT and OT. * Case coordination consulted for SNF. * Fall precautions. (3) Frequent falls: Code(s): R29.6 - Repeated falls Status: Acute Assessment and Plan: * Likely secondary to weakness related to Parkinson's and complicated by COVID infection. * Continue fall precautions. * Referral for SNF per case mgt. (4) Parkinson disease: Qualifiers: Dyskinesia presence: unspecified whether dyskinesia Fluctuating manifestations: unspecified whether manifestations fluctuate Qualified Code(s): G20.A1 - Parkinson's disease without dyskinesia, without mention of fluctuations Code(s): G20 - Parkinson's disease Status: Acute Assessment and Plan: * continue amantadine, Sinemet, Mirapex, and Zanaflex (5) Obstructive sleep apnea (adult) (pediatric): Code(s): G47.33 - Obstructive sleep apnea (adult) (pediatric) Status: Acute Assessment and Plan: * CPAP bedtime. Time Spent With Patient Time with patient: 15 - 25 minutes Subjective Date/time seen: 06/26/24 14:11 Patient calm on bedrest with intermittent moist coughs but no sputum. States feels better and has been ambulating to the bathroom well by himself. Interval history: Patient presented to the hospital with increased generalized weakness and a fall episode hitting his frontal head. He had a CXR done which showed small lung volumes with mild atelectasis in the lower lung zones. Head CT was negative for any acute intracranial process, showed normal aging brain. Cervical spine CT shown moderately severe cervical spondylosis, no fracture dislocation. UA showed trace ketones otherwise unremarkable. Respiratory panel was positive for COVID so he was admitted for stabilization of symptoms. Pt with good O2 sats > 92 % on RA. Review of Systems Review of Systems: All systems reviewed & are unremarkable except as noted in HPI and below Constitutional: Constitutional: Reports as per HPI and Reports no additional constitutional complaints Eyes: Eyes: Reports as per HPI and Reports no additional eye complaints ENT: Reports system reviewed and no additional complaints, except as documented and Reports as per HPI Cardiovascular: Cardiovascular: Reports as per HPI and Reports no additional cardiovascular complaints Respiratory: Respiratory: Reports as per HPI and Reports no additional respiratory complaints Gastrointestinal: Gastrointestinal: Reports as per HPI and Reports no additional gastrointestinal complaints Genitourinary: Genitourinary: Reports no additional male genitourinary complaints and Reports as per HPI Musculoskeletal: Musculoskeletal: Reports no additional musculoskeletal complaints and Reports as per HPI Integumentary/Breasts: Skin/Breast: Reports system reviewed and no additional complaints, except as docu and Reports as per HPI Neurologic: Reports system reviewed and no additional complaints, except as documented and Reports as per HPI Psychiatric: Psychiatric: Reports no additional psychiatric complaints and Reports as per HPI Exam Narrative: General:Fair appearing with some tremors to arms and hands, well nourished Head: Bruising to left frontal part, no encephalopathy Eyes: EOMI, PERRLA, sclera clear ENT: moist mucous membranes, nasal passages clear Neck: supple, no JVD, no adenopathy, trachea midline Cardiac: Normal S1 and S2. No murmurs, peripheral pulses intact. Respiratory: Lungs clear to auscultation, no adventitious lung sounds, Gastrointestinal: soft, non-distended, non-tender, normoactive bowel sounds. : voiding without difficulty. Extremities: no edema Skin: clean, dry, intact. No wounds or lesions. Neuro: Alert and oriented x4, cranial nerves intact, slight tremors to jairo arms and hands. Psych: normal mood, normal affect, interactive Objective Data Vital Signs Vital Signs: Vital Signs - 24 hr 06/25/24 14:28 06/25/24 14:30 06/25/24 14:32 Temperature 100.0 F H Pulse Rate 101 H 101 H Respiratory Rate 24 H 20 Blood Pressure 165/67 H 159/66 H Pulse Oximetry 96 98 Oxygen Delivery 06/25/24 15:30 06/25/24 16:30 06/25/24 16:56 Temperature 98.1 F Pulse Rate 91 88 Respiratory Rate 24 H 17 Blood Pressure Pulse Oximetry 98 94 Oxygen Delivery 06/25/24 15:40 06/25/24 17:00 06/25/24 18:33 Temperature 99 F Pulse Rate 78 Respiratory Rate 16 Blood Pressure 146/55 H Pulse Oximetry 97 Oxygen Delivery Room Air 06/25/24 20:55 06/26/24 00:35 06/26/24 01:58 Temperature 98.3 F 100.2 F H 99 F Pulse Rate 71 Respiratory Rate 18 Blood Pressure 133/44 L Pulse Oximetry 94 Oxygen Delivery 06/26/24 06:24 06/26/24 07:55 06/26/24 08:00 Temperature 98.4 F Pulse Rate 78 Respiratory Rate 18 Blood Pressure 147/42 H Pulse Oximetry 94 93 Oxygen Delivery Room Air Room Air Intake/Output Intake/Output: Intake & Output 06/23/24 06/24/24 06/25/24 06/26/24 23:59 23:59 23:59 23:59 Intake Total 1000 1162 Output Total 350 Balance 1000 812 Meds/Results Medications: Active Medications Generic Name Dose Route Start Last Admin Trade Name Freq PRN Reason Stop Dose Admin Acetaminophen 650 mg 06/25/24 16:30 Acetaminophen 325 Mg Tablet PO Q4H PRN Mild Pain (1-3) or Fever Amantadine HCl 100 mg 06/26/24 09:00 06/26/24 12:12 Amantadine Hcl 100 Mg Capsule PO 100 mg TID DALE Administration Carbidopa/Levodopa 1 tablet 06/25/24 22:00 06/26/24 12:11 Carbidopa/Levodopa 12.5/125 Mg Tablet PO 1 tablet QID@0700,1200,1700,2200 DALE Administration Carbidopa/Levodopa 2 tablet 06/25/24 22:00 06/26/24 12:11 Carbidopa/Levodopa 25/250 Mg Tablet PO 2 tablet QID@0700,1200,1700,2200 DALE Administration Enoxaparin Sodium 40 mg 06/26/24 09:00 06/26/24 08:57 Enoxaparin 40 Mg/0.4 Ml Syringe SUB-Q 40 mg DAILY DALE Administration Fluticasone Propionate 2 spray 06/25/24 18:52 Fluticasone Propionate 0.05% Na Spr 16 Gm Btl (*Bkc) NASAL PRN PRN allergies Gabapentin 600 mg 06/25/24 21:00 06/25/24 20:14 Gabapentin 300 Mg Capsule PO 600 mg QHS DALE Administration Ondansetron HCl 4 mg 06/25/24 21:47 Ondansetron Inj 4 Mg/2 Ml Vial IV PUSH Q6H PRN Nausea And Vomiting Pramipexole Dihydrochloride 1 mg 06/26/24 09:00 06/26/24 12:11 Pramipexole 1 Mg Tablet PO 1 mg TID DALE Administration Tizanidine HCl 4 mg 06/26/24 09:00 06/26/24 08:57 Tizanidine Hcl 4 Mg Tablet PO 4 mg BID DALE Administration Trazodone HCl 100 mg 06/25/24 21:00 06/25/24 20:14 Trazodone Hcl 50 Mg Tablet PO 100 mg QHS DALE Administration Radiology Results: ITS Impressions Chest X-Ray 06/25/24 12:44 IMPRESSION: 1. Small lung volumes with mild atelectasis in the lower lung zones. Head CT 06/25/24 13:59 IMPRESSION: 1. Normal aging brain. Cervical Spine CT 06/25/24 14:30 IMPRESSION: Moderately severe cervical spondylosis; no fracture or dislocation or locked facet Quality VTE Prophylaxis VTE prophylaxis: pharmacologic ordered Hospitalist [facility] Advance Care Plan I have confirmed that the patient's Advanced Care Plan is present, code status is documented, or surrogate decision maker is listed in patient medical record.: Yes Medication Reconciliation I have utilized all available resources to obtain, update and review the patients current medications (includes all prescriptions, OTC, herbals, cannabis, and nutritional supplements).: Yes
[2024-06-26] MEDS: ACETAMINOPHEN 325 MG TABLET 650 MG PO ×2 (14:39→21:58)
[2024-06-26] MEDS: GABAPENTIN 300 MG CAPSULE 600 MG PO (21:06)
[2024-06-26] MEDS: traZODone HCL 50 MG TABLET 100 MG PO (21:06)
[2024-06-26] MEDS: BENZONATATE 100 MG CAPSULE 200 MG PO (21:58)
[2024-06-27] MEDS: ACETAMINOPHEN 325 MG TABLET 650 MG PO ×2 (04:16→17:01)
[2024-06-27 05:43] VITALS: BP 157/42; PULSE 75; RESP 28; TEMP 36.7; O2SAT 95
[2024-06-27] MEDS: CARBIDOPA/LEVODOPA 25/250 MG TABLET 2 TABLET PO ×4 (06:04→20:24)
[2024-06-27] MEDS: LEVODOPA PO ×4 (06:04→20:24)
[2024-06-27] MEDS: CARBIDOPA PO ×4 (06:04→20:24)
[2024-06-27] MEDS: BENZONATATE 100 MG CAPSULE 200 MG PO ×2 (06:04→20:27)
[2024-06-27 07:17] LABS: Hematocrit 39.6 % (42.0-52.0); Hemoglobin 13.1 g/dL (14.0-18.0); Mean Corpuscular HGB Conc 33.1 g/dl (32-36); Mean Corpuscular Hemoglobin 29.5 pg (26-34); Mean Corpuscular Volume 89.2 fl (80-100); Mean Platelet Volume 11.9 fl (7.4-10.4); Platelet Count Result 133 k/mm3 (150-375); Red Blood Count 4.44 M/mm3 (4.6-6.20); Red Cell Distribution Width 13.1 % (11.5-14.5); White Blood Count 7.8 K/mm3 (4.5-10.0)
[2024-06-27 07:35] LABS: Anion Gap 6 mmol/L (4-12); Blood Urea Nitrogen 15 mg/dL (9-20); Calcium 8.3 mg/dL (8.4-10.2); Carbon Dioxide 28 mmol/L (22-30); Chloride 103 mmol/L (98-107); Estimated CRCL calculation 98 ml/min; Estimated Glomerular Filt Rate > 60; Glucose 112 mg/dL (65-110); Potassium 3.5 mmol/L (3.4-5.0); Sodium 137 mmol/L (137-145)
[2024-06-27 08:00] VITALS: PULSE 75; RESP 28; O2SAT 95
[2024-06-27] MEDS: AMANTADINE HCL 100 MG CAPSULE PO ×3 (09:58→17:01)
[2024-06-27] MEDS: TIZANIDINE HCL 4 MG TABLET PO ×2 (09:58→17:01)
[2024-06-27] MEDS: PRAMIPEXOLE 1 MG TABLET PO ×3 (09:58→17:01)
[2024-06-27] MEDS: ENOXAPARIN 40 MG/0.4 ML SYRINGE SUB-Q (09:58)
--- NOTE | 2024-06-27 14:26 | P.PNIM_ITS ---
Progress Note: A&P Assessment and Plan (1) COVID: Code(s): U07.1 - COVID-19 Status: Acute Assessment and Plan: * Respiratory panel positive for COVID. * Good O2 sats on RA > 92 %. * Does not meet criteria for Remdesivir currently and we'll hold. * Continue supportive care. * continue Flonase 06/27/24: * Continue supportive care. * Still does not meet requirements for Remdesivir. * Goal of Oxygen sats >92% * Continue isolation. (2) Weakness: Code(s): R53.1 - Weakness Status: Acute Assessment and Plan: * Possibly related to Parkinson's and worsened by # 1 above. * Continue PT and OT. * Case coordination consulted for SNF. * Fall precautions. 06/27/24: * Pt with unsteady, shuffling gait. * High fall risk. * Agree with SNF placement upon discharge. (3) Frequent falls: Code(s): R29.6 - Repeated falls Status: Acute Assessment and Plan: * Likely secondary to weakness related to Parkinson's and complicated by COVID infection. * Continue fall precautions. * Referral for SNF per case mgt. 06/27/24: * See Above plans. (4) Parkinson disease: Qualifiers: Dyskinesia presence: unspecified whether dyskinesia Fluctuating manifestations: unspecified whether manifestations fluctuate Qualified Code(s): G20.A1 - Parkinson's disease without dyskinesia, without mention of fluctuations Code(s): G20 - Parkinson's disease Status: Acute Assessment and Plan: * continue amantadine, Sinemet, Mirapex, and Zanaflex 06/27/24: * Continue all current medications. * High fall risk * SNF on discharge (5) Obstructive sleep apnea (adult) (pediatric): Code(s): G47.33 - Obstructive sleep apnea (adult) (pediatric) Status: Acute Assessment and Plan: * CPAP bedtime. 06/27/24: * Continue CPAP at bedtime. Time Spent With Patient Time with patient: 15 - 25 minutes Subjective Date/time seen: 06/27/24 1300 Interval history: Pt examined at the bedside today in no acute distress, but does remain fatigued. He is awaiting [facility] placement. No new complaints or symptoms to discuss today. Review of Systems Review of Systems: All systems reviewed & are unremarkable except as noted in HPI and below Exam Narrative: General: Elderly male pt lying supine in no acute distress at this time. He reports his coughing is improving. Head: Bruising to left frontal part Eyes: No icterus ENT: moist mucous membranes, nasal passages clear Neck: supple, no JVD, no adenopathy, trachea midline Cardiac: Normal S1 and S2. No murmurs, peripheral pulses intact. Respiratory: Lungs clear to auscultation, no adventitious lung sounds, Gastrointestinal: soft, non-distended, non-tender, normoactive bowel sounds. Extremities: no edema Skin: clean, dry, intact. No wounds or lesions. Neuro: Alert and oriented x4, cranial nerves intact, slight tremors to jairo arms and hands. Psych: normal mood, normal affect, interactive Objective Data Vital Signs Vital Signs: Vital Signs - 24 hr 06/26/24 14:39 06/26/24 14:42 06/26/24 15:35 Temperature 101.0 F H 101.3 F H 98.9 F Pulse Rate 95 Respiratory Rate 18 Blood Pressure 144/74 H Pulse Oximetry 93 Oxygen Delivery 06/26/24 20:39 06/26/24 21:30 06/27/24 05:43 Temperature 97.9 F 98.1 F Pulse Rate 72 75 Respiratory Rate 22 H 28 H Blood Pressure 108/63 157/42 H Pulse Oximetry 97 95 Oxygen Delivery Room Air 06/27/24 08:43 06/27/24 10:29 06/27/24 08:00 Temperature Pulse Rate 75 Respiratory Rate 28 H Blood Pressure Pulse Oximetry 95 Oxygen Delivery Room Air Room Air Room Air Intake/Output Intake/Output: Intake & Output 06/24/24 06/25/24 06/26/24 06/27/24 23:59 23:59 23:59 23:59 Intake Total 1000 2006 730 Output Total 350 300 Balance 1000 1656 430 Meds/Results Medications: Active Medications Generic Name Dose Route Start Last Admin Trade Name Freq PRN Reason Stop Dose Admin Acetaminophen 650 mg 06/25/24 16:30 06/27/24 04:16 Acetaminophen 325 Mg Tablet PO 650 mg Q4H PRN Administration Mild Pain (1-3) or Fever Amantadine HCl 100 mg 06/26/24 09:00 06/27/24 13:26 Amantadine Hcl 100 Mg Capsule PO 100 mg TID DALE Administration Benzonatate 200 mg 06/26/24 21:36 06/27/24 06:04 Benzonatate 100 Mg Capsule PO 200 mg TID PRN Administration Cough Carbidopa/Levodopa 1 tablet 06/25/24 22:00 06/27/24 13:26 Carbidopa/Levodopa 12.5/125 Mg Tablet PO 1 tablet QID@0700,1200,1700,2200 DALE Administration Carbidopa/Levodopa 2 tablet 06/25/24 22:00 06/27/24 13:26 Carbidopa/Levodopa 25/250 Mg Tablet PO 2 tablet QID@0700,1200,1700,2200 DALE Administration Enoxaparin Sodium 40 mg 06/26/24 09:00 06/27/24 09:58 Enoxaparin 40 Mg/0.4 Ml Syringe SUB-Q 40 mg DAILY DALE Administration Fluticasone Propionate 2 spray 06/25/24 18:52 Fluticasone Propionate 0.05% Na Spr 16 Gm Btl (*Bkc) NASAL PRN PRN allergies Gabapentin 600 mg 06/25/24 21:00 06/26/24 21:06 Gabapentin 300 Mg Capsule PO 600 mg QHS DALE Administration Ondansetron HCl 4 mg 06/25/24 21:47 Ondansetron Inj 4 Mg/2 Ml Vial IV PUSH Q6H PRN Nausea And Vomiting Pramipexole Dihydrochloride 1 mg 06/26/24 09:00 06/27/24 13:26 Pramipexole 1 Mg Tablet PO 1 mg TID DALE Administration Tizanidine HCl 4 mg 06/26/24 09:00 06/27/24 09:58 Tizanidine Hcl 4 Mg Tablet PO 4 mg BID DALE Administration Trazodone HCl 100 mg 06/25/24 21:00 06/26/24 21:06 Trazodone Hcl 50 Mg Tablet PO 100 mg QHS DALE Administration Radiology Results: ITS Impressions Chest X-Ray 06/25/24 12:44 IMPRESSION: 1. Small lung volumes with mild atelectasis in the lower lung zones. Head CT 06/25/24 13:59 IMPRESSION: 1. Normal aging brain. Cervical Spine CT 06/25/24 14:30 IMPRESSION: Moderately severe cervical spondylosis; no fracture or dislocation or locked facet Labs Labs: Laboratory Results - last 24 hr 06/27/24 06:43 WBC 7.8 RBC 4.44 L Hgb 13.1 L Hct 39.6 L MCV 89.2 MCH 29.5 MCHC 33.1 RDW 13.1 Plt Count 133 L MPV 11.9 H Sodium 137 Potassium 3.5 Chloride 103 Carbon Dioxide 28 Anion Gap 6 BUN 15 D Creatinine 0.70 Estim Creat Clear Calc 98 Estimated GFR > 60 Glucose 112 H Calcium 8.3 L Quality VTE Prophylaxis VTE prophylaxis: pharmacologic ordered
[2024-06-27 16:00] VITALS: BP 176/84; PULSE 103; RESP 20; TEMP 38.2; O2SAT 95
[2024-06-27 19:55] LABS: Basophils Percent Auto 0.1 % (0.2-1.2); Eosinophils Absolute Auto 0.1 K/mm3 (0-0.3); Eosinophils Percent Auto 0.9 % (0-4.4); Hematocrit 37.6 % (42.0-52.0); Hemoglobin 12.5 g/dL (14.0-18.0); Immature Granulocyte Absolute 0.02 K/mm3 (0.00-0.031); Immature Granulocyte Percent A 0.3 % (0-0.5); Immature Platelet Fraction Pct 4.7 % (0.9-11.2); Lymphocytes Absolute Auto 0.59 K/mm3 (0.9-3.2); Mean Corpuscular HGB Conc 33.2 g/dl (32-36); Mean Corpuscular Hemoglobin 29.2 pg (26-34); Mean Corpuscular Volume 87.9 fl (80-100); Mean Platelet Volume 11.7 fl (7.4-10.4); Monocytes Absolute Auto 0.8 K/mm3 (0.1-0.6); Monocytes Percent Auto 10.3 % (2.6-8.5); Neutrophils Percent Auto 80.4 % (45.5-73.1); Platelet Count Result 118 k/mm3 (150-375); Red Blood Count 4.28 M/mm3 (4.6-6.20); Red Cell Distribution Width 12.7 % (11.5-14.5); White Blood Count 7.4 K/mm3 (4.5-10.0)
[2024-06-27 20:04] LABS: INR 1.2; Prothrombin Time 15.3 Seconds (11.1-14.7)
[2024-06-27 20:05] LABS: Partial Thromboplastin Time 32.2 Seconds (22.3-36.8)
[2024-06-27 20:07] LABS: Alanine Aminotransferase 7 U/L (6-50); Albumin Level 3.6 g/dL (3.5-5.1); Alkaline Phosphatase 54 U/L (38-126); Anion Gap 8 mmol/L (4-12); Aspartate Amino Transferase 59 U/L (17-59); Bilirubin,Total 0.9 mg/dL (0.2-1.3); Blood Urea Nitrogen 16 mg/dL (9-20); Calcium 8.1 mg/dL (8.4-10.2); Carbon Dioxide 26 mmol/L (22-30); Chloride 102 mmol/L (98-107); Estimated CRCL calculation 98 ml/min; Estimated Glomerular Filt Rate > 60; Glucose 106 mg/dL (65-110); Lactic Acid Reflex 1.2 mmol/L (0.7-2.0); Potassium 3.4 mmol/L (3.4-5.0); Sodium 136 mmol/L (137-145)
[2024-06-27 20:17] VITALS: BP 150/46; PULSE 79; RESP 34; TEMP 36.8; O2SAT 93
[2024-06-27] MEDS: traZODone HCL 50 MG TABLET 100 MG PO (20:24)
[2024-06-27] MEDS: GABAPENTIN 300 MG CAPSULE 600 MG PO (20:24)
[2024-06-27] MEDS: ACETAMINOPHEN 500 MG TABLET 1000 MG PO (20:27)
[2024-06-27 20:29] LABS: Add Urine Microscopic? YES; Appearance Urine Clear (Clear); Bacteria Urine None Seen /hpf; Bilirubin Urine Negative (Negative); Blood Urine 2+ (Negative); Color Urine Yellow (Yellow); Glucose Urine UA Negative (Negative); Ketones Urine Trace mg/dL (Negative); Leukocyte Esterase Ur Negative LEU/UL (Negative); Nitrate Urine Negative (Negative); Non Pathogenic Casts 0-2; Protein Urine Trace mg/dL (Negative); RBC Urine >100 /hpf (0-2); Specific Grav Ur > 1.045 (1.001-1.035); Squamous Epithelial Cell Urine None Seen /hpf (Few); WBC Urine 0-5 /hpf (0-3); pH Urine 5.5 (5.0-9.0)
--- NOTE | 2024-06-27 20:39 | PM.EVENT ---
Event Note Event Note Event Note: 06/27/2024 19:23 Nursing staff called because the patient was markedly tachypneic with respiratory rate between 28 and 32 and was profusely diaphoretic. I reviewed patient's chart. Patient has been evaluated a few hours prior due to hematuria and fever of 100.7 and was noted to have abrasion to his penis with a small amount of bleeding. Stat CT of the abdomen pelvis, CBC, CMP and UA and blood cultures were obtained by the daytime provider. Given the patient's tachypnea I stat chest x-ray was ordered and reviewed by myself. Chest x-ray could be consistent with CHF versus pneumonia. The patient's UA demonstrated significant ketones his mucous membranes were dry in the patient is known to have acute COVID. In this setting patient's chest x-ray findings most consistent with COVID pneumonia. Although patient was still not started on prednisone as he does not have oxygen requirement. By the time I had completed chart review and needed up to evaluate patient he was no longer diaphoretic and his respiratory rate had improved. He was no longer febrile. I suspect that the patient's change in condition was due to him breaking his fever. Given that the patient did have ketones in his urine dry mucous membranes I did order fluid bolus. Will monitor repeat labs. May need to consider addition of Remdesivir as the patient does have higher risk of complication with COVID. However onset of initial exposures not exactly known as far as I can determine. Will defer decision on addition of Remdesivir to daytime provider. Given the patient is not requiring oxygen I do not have a strong indication to do so acutely. 35 minute spent in critical care activities for evaluation of respiratory distress. Due to a high probability of clinically significant, life threatening deterioration, the patient required my highest level of preparedness to intervene emergently and I personally spent this critical care time directly and personally managing the patient. This critical care time included obtaining a history; examining the patient; pulse oximetry; ordering and review of studies; arranging urgent treatment with development of a management plan; evaluation of patient's response to treatment; frequent reassessment; and discussions with other providers. It was exclusive of separately billable procedures and treating other patients and teaching time. Please see Assessment and Plan section and the rest of the note for further information on patient assessment and treatment.
[2024-06-27] MEDS: LACTATED RINGERS 1,000 ML 500 ML IV CONT (21:10)
[2024-06-27 21:18] VITALS: BP 141/49; PULSE 75; RESP 16; TEMP 36.6; O2SAT 92
[2024-06-27] MEDS: WATER FOR IRRIGATION, STERILE 1,000 ML BOTTLE 1000 ML (22:08)
[2024-06-27 23:00] VITALS: PULSE 80; O2SAT 95
[2024-06-28 05:43] VITALS: BP 157/57; PULSE 75; RESP 13; TEMP 36.2; O2SAT 95
[2024-06-28 07:20] LABS: Basophils Percent Auto 0.2 % (0.2-1.2); Eosinophils Absolute Auto 0.2 K/mm3 (0-0.3); Eosinophils Percent Auto 3.6 % (0-4.4); Hematocrit 37.9 % (42.0-52.0); Hemoglobin 12.4 g/dL (14.0-18.0); Immature Granulocyte Absolute 0.01 K/mm3 (0.00-0.031); Immature Granulocyte Percent A 0.2 % (0-0.5); Immature Platelet Fraction Pct 4.9 % (0.9-11.2); Lymphocytes Absolute Auto 0.48 K/mm3 (0.9-3.2); Lymphocytes Percent Auto 8.8 % (18.3-44.2); Mean Corpuscular HGB Conc 32.7 g/dl (32-36); Mean Corpuscular Hemoglobin 28.8 pg (26-34); Mean Corpuscular Volume 87.9 fl (80-100); Mean Platelet Volume 11.6 fl (7.4-10.4); Monocytes Absolute Auto 0.8 K/mm3 (0.1-0.6); Monocytes Percent Auto 13.9 % (2.6-8.5); Neutrophils Percent Auto 73.3 % (45.5-73.1); Platelet Count Result 111 k/mm3 (150-375); Red Blood Count 4.31 M/mm3 (4.6-6.20); Red Cell Distribution Width 12.8 % (11.5-14.5); White Blood Count 5.5 K/mm3 (4.5-10.0)
[2024-06-28 07:31] LABS: Alanine Aminotransferase 12 U/L (6-50); Albumin Level 3.5 g/dL (3.5-5.1); Alkaline Phosphatase 56 U/L (38-126); Anion Gap 7 mmol/L (4-12); Aspartate Amino Transferase 52 U/L (17-59); Bilirubin,Total 0.8 mg/dL (0.2-1.3); Blood Urea Nitrogen 13 mg/dL (9-20); Calcium 8.2 mg/dL (8.4-10.2); Carbon Dioxide 28 mmol/L (22-30); Chloride 102 mmol/L (98-107); Estimated CRCL calculation 112 ml/min; Estimated Glomerular Filt Rate > 60; Glucose 104 mg/dL (65-110); Potassium 3.6 mmol/L (3.4-5.0); Sodium 137 mmol/L (137-145)
[2024-06-28 08:00] VITALS: PULSE 75; RESP 13; O2SAT 95
--- NOTE | 2024-06-28 08:18 | P.PNIM_ITS ---
Progress Note: A&P Assessment and Plan (1) COVID: Code(s): U07.1 - COVID-19 Status: Acute Assessment and Plan: * Respiratory panel positive for COVID. * Good O2 sats on RA > 92 %. * Does not meet criteria for Remdesivir currently and we'll hold. * Continue supportive care. * continue Flonase 06/27/24: * Continue supportive care. * Still does not meet requirements for Remdesivir. * Goal of Oxygen sats >92% * Continue isolation. continue care- o2 requirement unchanged, vitals reviewed- stable (2) Weakness: Code(s): R53.1 - Weakness Status: Acute Assessment and Plan: * Possibly related to Parkinson's and worsened by # 1 above. * Continue PT and OT. * Case coordination consulted for SNF. * Fall precautions. 06/27/24: * Pt with unsteady, shuffling gait. * High fall risk. * Agree with SNF placement upon discharge. 06/28- placement pending- continue to work with pt/or (3) Frequent falls: Code(s): R29.6 - Repeated falls Status: Acute Assessment and Plan: * Likely secondary to weakness related to Parkinson's and complicated by COVID infection. * Continue fall precautions. * Referral for SNF per case mgt. (4) Parkinson disease: Qualifiers: Dyskinesia presence: unspecified whether dyskinesia Fluctuating manifestations: unspecified whether manifestations fluctuate Qualified Code(s): G20.A1 - Parkinson's disease without dyskinesia, without mention of fluctuations Code(s): G20 - Parkinson's disease Status: Acute Assessment and Plan: * continue amantadine, Sinemet, Mirapex, and Zanaflex * High fall risk * SNF on discharge (5) Obstructive sleep apnea (adult) (pediatric): Code(s): G47.33 - Obstructive sleep apnea (adult) (pediatric) Status: Acute Assessment and Plan: * Continue CPAP at bedtime. Time Spent With Patient Time with patient: Greater than 35 minutes Subjective Date/time seen: 06/28/24 08:18 Interval history: Pt examined at the bedside today. Discharge pending alf placement. No new complaints or symptoms. Continue to work with PT/OT- still very weak but did better today. Review of Systems Review of Systems: generalized weakness and fatigue Exam Narrative: General: Elderly male in no acute distress at this time. Coughing is improving. Head: Bruising to left frontal part Eyes: No icterus ENT: moist mucous membranes, nasal passages clear Neck: supple, no JVD, no adenopathy, trachea midline Cardiac: Normal S1 and S2. No murmurs, peripheral pulses intact. Respiratory: Lungs clear to auscultation, no adventitious lung sounds, Gastrointestinal: soft, non-distended, non-tender, normoactive bowel sounds. Extremities: no edema Skin: clean, dry, intact. No wounds or lesions. Neuro: Alert and oriented x4, cranial nerves intact, slight tremors to jairo arms and hands. Psych: normal mood, normal affect, interactive Const: General: comfortable Objective Data Vital Signs Vital Signs: Vital Signs - 24 hr 06/27/24 08:43 06/27/24 10:29 06/27/24 16:00 Temperature 100.7 F H Pulse Rate 103 H Respiratory Rate 20 Blood Pressure 176/84 H Pulse Oximetry 95 Oxygen Delivery Room Air Room Air 06/27/24 20:17 06/27/24 21:18 06/27/24 20:00 Temperature 98.3 F 97.8 F Pulse Rate 79 75 Respiratory Rate 34 H 16 Blood Pressure 150/46 H 141/49 H Pulse Oximetry 93 92 Oxygen Delivery Room Air 06/27/24 23:00 06/28/24 05:43 Temperature 97.1 F L Pulse Rate 80 75 Respiratory Rate 13 Blood Pressure 157/57 H Pulse Oximetry 95 95 Oxygen Delivery Intake/Output Intake/Output: Intake & Output 06/25/24 06/26/24 06/27/24 06/28/24 23:59 23:59 23:59 23:59 Intake Total 1000 2006 1452 100 Output Total 350 500 700 Balance 1000 1656 952 -600 Meds/Results Medications: Active Medications Generic Name Dose Route Start Last Admin Trade Name Freq PRN Reason Stop Dose Admin Acetaminophen 1,000 mg 06/27/24 17:35 06/27/24 20:27 Acetaminophen 500 Mg Tablet PO 1,000 mg Q6H PRN Administration Mild Pain (1-3) or Fever Amantadine HCl 100 mg 06/26/24 09:00 06/27/24 17:01 Amantadine Hcl 100 Mg Capsule PO 100 mg TID DALE Administration Benzonatate 200 mg 06/26/24 21:36 06/27/24 20:27 Benzonatate 100 Mg Capsule PO 200 mg TID PRN Administration Cough Carbidopa/Levodopa 1 tablet 06/25/24 22:00 06/27/24 20:24 Carbidopa/Levodopa 12.5/125 Mg Tablet PO 1 tablet QID@0700,1200,1700,2200 DALE Administration Carbidopa/Levodopa 2 tablet 06/25/24 22:00 06/27/24 20:24 Carbidopa/Levodopa 25/250 Mg Tablet PO 2 tablet QID@0700,1200,1700,2200 DALE Administration Enoxaparin Sodium 40 mg 06/26/24 09:00 06/27/24 09:58 Enoxaparin 40 Mg/0.4 Ml Syringe SUB-Q 40 mg DAILY DALE Administration Fluticasone Propionate 2 spray 06/25/24 18:52 Fluticasone Propionate 0.05% Na Spr 16 Gm Btl (*Bkc) NASAL PRN PRN allergies Gabapentin 600 mg 06/25/24 21:00 06/27/24 20:24 Gabapentin 300 Mg Capsule PO 600 mg QHS DALE Administration Ondansetron HCl 4 mg 06/25/24 21:47 Ondansetron Inj 4 Mg/2 Ml Vial IV PUSH Q6H PRN Nausea And Vomiting Pramipexole Dihydrochloride 1 mg 06/26/24 09:00 06/27/24 17:01 Pramipexole 1 Mg Tablet PO 1 mg TID DALE Administration Promethazine HCl/Codeine 5 ml 06/27/24 18:06 Promethazine/Codeine (*Crx) 5 Ml Syrup PO Q4H PRN Cough Tizanidine HCl 4 mg 06/26/24 09:00 06/27/24 17:01 Tizanidine Hcl 4 Mg Tablet PO 4 mg BID DALE Administration Trazodone HCl 100 mg 06/25/24 21:00 06/27/24 20:24 Trazodone Hcl 50 Mg Tablet PO 100 mg QHS DALE Administration Radiology Results: ITS Impressions Head CT 06/25/24 13:59 IMPRESSION: 1. Normal aging brain. Cervical Spine CT 06/25/24 14:30 IMPRESSION: Moderately severe cervical spondylosis; no fracture or dislocation or locked facet Abdomen/Pelvis CT 06/27/24 19:10 IMPRESSION: 1. Hepatomegaly. 2. Tiny stone in the right kidney lower pole. 3. No evidence of appendicitis, diverticulitis or intestinal obstruction. 4. Underfilled urinary bladder with thickened wall. Clinical correlation advised. 5. Bilateral fat containing inguinal areas larger on the left side. 6. Constipation. Chest X-Ray 06/27/24 21:07 IMPRESSION: Cardiomegaly with cardiac decompensation and pulmonary edema. Superimposed pneumonitis is highly suggestive Labs Labs: Laboratory Results - last 24 hr 06/27/24 06/27/24 06/28/24 19:36 20:19 06:59 WBC 7.4 5.5 RBC 4.28 L 4.31 L Hgb 12.5 L 12.4 L Hct 37.6 L 37.9 L MCV 87.9 87.9 MCH 29.2 28.8 MCHC 33.2 32.7 RDW 12.7 12.8 Plt Count 118 L 111 L MPV 11.7 H 11.6 H Immature Gran % (Auto) 0.3 0.2 Neut % (Auto) 80.4 H 73.3 H Lymph % (Auto) 8.0 L 8.8 L [place] % (Auto) 10.3 H 13.9 H Eos % (Auto) 0.9 3.6 Baso % (Auto) 0.1 L 0.2 Lymph # (Auto) 0.59 L 0.48 L [place] # (Auto) 0.8 H 0.8 H Eos # (Auto) 0.1 0.2 Baso # (Auto) 0.0 0.0 Abs Immat Gran (auto) 0.02 0.01 Absolute Neuts (auto) 6.0 4.0 Absolute Nucleated RBC 0.000 0.000 Nucleated RBC % 0.0 0.0 % Immature Plt Fraction 4.7 4.9 PT 15.3 H INR 1.2 APTT 32.2 Sodium 136 L 137 Potassium 3.4 3.6 Chloride 102 102 Carbon Dioxide 26 28 Anion Gap 8 7 BUN 16 13 Creatinine 0.70 0.60 L Estim Creat Clear Calc 98 112 Estimated GFR > 60 > 60 Glucose 106 104 Lactic Acid 1.2 Calcium 8.1 L 8.2 L Magnesium 2.0 Total Bilirubin 0.9 0.8 AST 59 52 ALT 7 12 Alkaline Phosphatase 54 56 Total Protein 6.0 L 6.0 L Albumin 3.6 3.5 Urine Color Yellow Urine Appearance Clear Urine pH 5.5 Ur Specific [place] > 1.045 H Urine Protein Trace Urine Glucose (UA) Negative Urine Ketones Trace H Ur Blood (Man) 2+ H Urine Nitrate Negative Urine Bilirubin Negative Urine Urobilinogen 1.0 Leukocyte Esterase Rfl Negative Urine RBC >100 H Urine WBC 0-5 Ur Squamous Epith Cells None seen Urine Bacteria None seen Urine Casts 0-2 Quality VTE Prophylaxis VTE prophylaxis: pharmacologic ordered
[2024-06-28] MEDS: AMANTADINE HCL 100 MG CAPSULE PO ×3 (08:47→16:22)
[2024-06-28] MEDS: CARBIDOPA/LEVODOPA 25/250 MG TABLET 2 TABLET PO ×4 (08:47→21:11)
[2024-06-28] MEDS: TIZANIDINE HCL 4 MG TABLET PO ×2 (08:47→16:22)
[2024-06-28] MEDS: LEVODOPA PO ×4 (08:47→21:11)
[2024-06-28] MEDS: PRAMIPEXOLE 1 MG TABLET PO ×3 (08:47→16:22)
[2024-06-28] MEDS: CARBIDOPA PO ×4 (08:47→21:11)
[2024-06-28 16:00] VITALS: BP 166/44; PULSE 81; RESP 18; TEMP 37.5; O2SAT 96
[2024-06-28] MEDS: PROMETHAZINE/CODEINE (*CRX) 5 ML SYRUP PO ×2 (16:22→21:11)
[2024-06-28 21:03] VITALS: BP 143/96; PULSE 82; RESP 22; TEMP 36.8; O2SAT 93
[2024-06-28] MEDS: GABAPENTIN 300 MG CAPSULE 600 MG PO (21:11)
[2024-06-28] MEDS: traZODone HCL 50 MG TABLET 100 MG PO (21:11)
[2024-06-28] MEDS: BENZONATATE 100 MG CAPSULE 200 MG PO (21:11)
[2024-06-28 22:02] VITALS: O2SAT 93
[2024-06-29 03:00] VITALS: O2SAT 95
[2024-06-29 06:39] VITALS: BP 145/55; PULSE 72; RESP 22; TEMP 36.4; O2SAT 93
[2024-06-29] MEDS: CARBIDOPA/LEVODOPA 25/250 MG TABLET 2 TABLET PO ×4 (06:45→21:41)
[2024-06-29] MEDS: LEVODOPA PO ×4 (06:46→21:41)
[2024-06-29] MEDS: CARBIDOPA PO ×4 (06:46→21:41)
[2024-06-29] MEDS: AMANTADINE HCL 100 MG CAPSULE PO ×3 (08:18→16:53)
[2024-06-29] MEDS: BISACODYL 5 MG TABLET EC PO (08:18)
[2024-06-29] MEDS: PRAMIPEXOLE 1 MG TABLET PO ×3 (08:18→16:54)
[2024-06-29] MEDS: TIZANIDINE HCL 4 MG TABLET PO ×2 (08:19→16:54)
[2024-06-29] MEDS: polyethylene glycoL 3350 17 GM POWD.PACK PO (08:19)
--- NOTE | 2024-06-29 08:52 | P.PNIM_ITS ---
Progress Note: A&P Assessment and Plan (1) COVID: Code(s): U07.1 - COVID-19 Status: Acute Assessment and Plan: * Respiratory panel positive for COVID. * Good O2 sats on RA > 92 %. * Does not meet criteria for Remdesivir currently and we'll hold. * Continue supportive care. * continue Flonase 06/27/24: * Continue supportive care. * Still does not meet requirements for Remdesivir. * Goal of Oxygen sats >92% * Continue isolation. patient on room air cough improving (2) Weakness: Code(s): R53.1 - Weakness Status: Acute Assessment and Plan: * Possibly related to Parkinson's and worsened by # 1 above. * Continue PT and OT. * Case coordination consulted for SNF. * Fall precautions. 06/27/24: * Pt with unsteady, shuffling gait. * High fall risk. * Agree with SNF placement upon discharge. 06/28- placement pending- continue to work with pt/ot (3) Frequent falls: Code(s): R29.6 - Repeated falls Status: Acute Assessment and Plan: * Likely secondary to weakness related to Parkinson's and complicated by COVID infection. * Continue fall precautions. * Referral for SNF per case mgt. (4) Parkinson disease: Qualifiers: Dyskinesia presence: unspecified whether dyskinesia Fluctuating manifestations: unspecified whether manifestations fluctuate Qualified Code(s): G20.A1 - Parkinson's disease without dyskinesia, without mention of fluctuations Code(s): G20 - Parkinson's disease Status: Acute Assessment and Plan: * continue amantadine, Sinemet, Mirapex, and Zanaflex * High fall risk * SNF on discharge (5) Obstructive sleep apnea (adult) (pediatric): Code(s): G47.33 - Obstructive sleep apnea (adult) (pediatric) Status: Acute Assessment and Plan: * Continue CPAP at bedtime. (6) Constipation: Code(s): K59.00 - Constipation, unspecified Status: Acute Assessment and Plan: severe constipation seen on CT with fecalization of small bowel lactulose oral and enema ordered with results patient will need to be discharged on aggressive bowel protocol Time Spent With Patient Time with patient: Greater than 35 minutes Subjective Date/time seen: 06/29/24 08:52 Interval history: 74-year-old male with a significant past medical history Parkinson's, obstructive sleep apnea, GERD, neuropathy who presented to the hospital for evaluation of weakness and frequent falls. Pt examined at the bedside today. Discharge pending alf placement. No new complaints or symptoms. Continue to work with PT/OT- still very weak but did better today. patient had a bowel movement today and started on aggressive bowel protocol patient is medically ready for discharge, pending insurance authorization Review of Systems Review of Systems: generalized weakness and fatigue All systems reviewed & are unremarkable except as noted in HPI and below Constitutional: Constitutional: Reports as per HPI and Reports no additional constitutional complaints Eyes: Eyes: Reports as per HPI and Reports no additional eye complaints ENT: Reports system reviewed and no additional complaints, except as documented and Reports as per HPI Cardiovascular: Cardiovascular: Reports as per HPI and Reports no additional cardiovascular complaints Respiratory: Respiratory: Reports as per HPI and Reports no additional respiratory complaints Gastrointestinal: Gastrointestinal: Reports as per HPI and Reports no additional gastrointestinal complaints Genitourinary: Genitourinary: Reports no additional male genitourinary complaints and Reports as per HPI Musculoskeletal: Musculoskeletal: Reports no additional musculoskeletal complaints and Reports as per HPI Integumentary/Breasts: Skin/Breast: Reports system reviewed and no additional complaints, except as docu and Reports as per HPI Neurologic: Reports system reviewed and no additional complaints, except as documented and Reports as per HPI Psychiatric: Psychiatric: Reports no additional psychiatric complaints and Reports as per HPI Exam Narrative: General: Elderly male in no acute distress at this time. Coughing is improving. Head: Bruising to left frontal part Eyes: No icterus ENT: moist mucous membranes, nasal passages clear Neck: supple, no JVD, no adenopathy, trachea midline Cardiac: Normal S1 and S2. No murmurs, peripheral pulses intact. Respiratory: Lungs clear to auscultation, no adventitious lung sounds, Gastrointestinal: soft, non-distended, non-tender, normoactive bowel sounds. Extremities: no edema, tremors Skin: clean, dry, intact. No wounds or lesions. Neuro: Alert and oriented x4, cranial nerves intact, slight tremors to jairo arms and hands. Psych: normal mood, normal affect, interactive Const: General: comfortable Objective Data Vital Signs Vital Signs: Vital Signs - 24 hr 06/28/24 16:00 06/28/24 21:03 06/28/24 22:02 Temperature 99.5 F 98.2 F Pulse Rate 81 82 Respiratory Rate 18 22 H Blood Pressure 166/44 H 143/96 H Pulse Oximetry 96 93 93 06/29/24 03:00 06/29/24 06:39 Temperature 97.6 F Pulse Rate 72 Respiratory Rate 22 H Blood Pressure 145/55 H Pulse Oximetry 95 93 Intake/Output Intake/Output: Intake & Output 06/26/24 06/27/24 06/28/24 06/29/24 23:59 23:59 23:59 23:59 Intake Total 2005 1452 1284 500 Output Total 350 500 700 300 Balance 1656 952 584 200 Meds/Results Medications: Active Medications Generic Name Dose Route Start Last Admin Trade Name Freq PRN Reason Stop Dose Admin Acetaminophen 1,000 mg 06/27/24 17:35 06/27/24 20:27 Acetaminophen 500 Mg Tablet PO 1,000 mg Q6H PRN Administration Mild Pain (1-3) or Fever Amantadine HCl 100 mg 06/26/24 09:00 06/29/24 08:18 Amantadine Hcl 100 Mg Capsule PO 100 mg TID DALE Administration Benzonatate 200 mg 06/26/24 21:36 06/28/24 21:11 Benzonatate 100 Mg Capsule PO 200 mg TID PRN Administration Cough Bisacodyl 5 mg 06/29/24 07:32 06/29/24 08:18 Bisacodyl 5 Mg Tablet Ec PO 5 mg QAM PRN Administration Constipation Carbidopa/Levodopa 1 tablet 06/25/24 22:00 06/29/24 06:46 Carbidopa/Levodopa 12.5/125 Mg Tablet PO 1 tablet QID@0700,1200,1700,2200 DALE Administration Carbidopa/Levodopa 2 tablet 06/25/24 22:00 06/29/24 06:45 Carbidopa/Levodopa 25/250 Mg Tablet PO 2 tablet QID@0700,1200,1700,2200 DALE Administration Enoxaparin Sodium 40 mg 06/26/24 09:00 06/27/24 09:58 Enoxaparin 40 Mg/0.4 Ml Syringe SUB-Q 40 mg DAILY DALE Administration Fluticasone Propionate 2 spray 06/25/24 18:52 Fluticasone Propionate 0.05% Na Spr 16 Gm Btl (*Bkc) NASAL PRN PRN allergies Gabapentin 600 mg 06/25/24 21:00 06/28/24 21:11 Gabapentin 300 Mg Capsule PO 600 mg QHS DALE Administration Ondansetron HCl 4 mg 06/25/24 21:47 Ondansetron Inj 4 Mg/2 Ml Vial IV PUSH Q6H PRN Nausea And Vomiting Polyethylene Glycol 17 gm 06/29/24 07:32 06/29/24 08:19 Polyethylene Glycol 3350 17 Gm Powd.Pack PO 17 gm QAM PRN Administration Constipation Pramipexole Dihydrochloride 1 mg 06/26/24 09:00 06/29/24 08:18 Pramipexole 1 Mg Tablet PO 1 mg TID DLAE Administration Promethazine HCl/Codeine 5 ml 06/27/24 18:06 06/28/24 21:11 Promethazine/Codeine (*Crx) 5 Ml Syrup PO 5 ml Q4H PRN Administration Cough Tizanidine HCl 4 mg 06/26/24 09:00 06/29/24 08:19 Tizanidine Hcl 4 Mg Tablet PO 4 mg BID DALE Administration Trazodone HCl 100 mg 06/25/24 21:00 06/28/24 21:11 Trazodone Hcl 50 Mg Tablet PO 100 mg QHS DALE Administration Radiology Results: ITS Impressions Head CT 06/25/24 13:59 IMPRESSION: 1. Normal aging brain. Cervical Spine CT 06/25/24 14:30 IMPRESSION: Moderately severe cervical spondylosis; no fracture or dislocation or locked facet Abdomen/Pelvis CT 06/27/24 19:10 IMPRESSION: 1. Hepatomegaly. 2. Tiny stone in the right kidney lower pole. 3. No evidence of appendicitis, diverticulitis or intestinal obstruction. 4. Underfilled urinary bladder with thickened wall. Clinical correlation advised. 5. Bilateral fat containing inguinal areas larger on the left side. 6. Constipation. Chest X-Ray 06/27/24 21:07 IMPRESSION: Cardiomegaly with cardiac decompensation and pulmonary edema. Superimposed pneumonitis is highly suggestive Imaging Radiologist's impression: CT abdomen pelvis IMPRESSION: 1. Hepatomegaly. 2. Tiny stone in the right kidney lower pole. 3. No evidence of appendicitis, diverticulitis or intestinal obstruction. 4. Underfilled urinary bladder with thickened wall. Clinical correlation advised. 5. Bilateral fat containing inguinal areas larger on the left side. 6. Constipation. CT cervical spine wo con DATE: 06/25/2024 13:59 INDICATION: Fall, injury TECHNIQUE: Computed tomography (CT) of the cervical spine was performed without intravenous contrast. Automated exposure control and iterative reconstruction technique were employed. Exam dose: 472.11 mGy-cm total exam DLP. COMPARISON: None FINDINGS: Normal alignment at the atlantoaxial joints and at C1 and C2. The odontoid process is intact. No fracture or dislocation or locked facet. No prevertebral soft tissue swelling. There is approximately 1.6 mm anterolisthesis at C4-5. There is severe degenerative disc disease at C5-6 and moderately severe degenerative disc disease at C6-7 and C7-T1. There is degenerative change at the apophyseal joints, most prominent at C4-5. IMPRESSION: Moderately severe cervical spondylosis; no fracture or dislocation or locked facet CT brain wo con DATE: 06/25/2024 13:58 INDICATION: Fall. TECHNIQUE: Computed tomography (CT) of the head was performed without intravenous contrast. The mA was adjusted according to patient size. Iterative reconstruction technique was employed. The dose-length product was 605.33 mGy-cm. COMPARISON: Head CT 09/03/2023 FINDINGS: There is no intracranial hemorrhage, acute infarction, or abnormal intracranial mass lesion. There are scattered areas of low attenuation in the cerebral white matter, which is within normal limits for the patient's age. The ventricles are normal in size. There is mild mucosal thickening in the paranasal sinuses. The orbits are normal. The mastoid air cells are normal. IMPRESSION: 1. Normal aging brain. Quality VTE Prophylaxis VTE prophylaxis: pharmacologic ordered Hospitalist [facility] Advance Care Plan I have confirmed that the patient's Advanced Care Plan is present, code status is documented, or surrogate decision maker is listed in patient medical record.: Yes Medication Reconciliation I have utilized all available resources to obtain, update and review the patients current medications (includes all prescriptions, OTC, herbals, cannabis, and nutritional supplements).: Yes
[2024-06-29] MEDS: LACTULOSE 20 GM/30 ML UDC 45 GM PO (12:17)
[2024-06-29 13:58] VITALS: BP 148/42; PULSE 77; RESP 22; TEMP 36.2; O2SAT 90
[2024-06-29 20:00] VITALS: PULSE 96; RESP 16; O2SAT 96
[2024-06-29] MEDS: GABAPENTIN 300 MG CAPSULE 600 MG PO (21:41)
[2024-06-29] MEDS: traZODone HCL 50 MG TABLET 100 MG PO (21:41)
[2024-06-29 21:48] VITALS: BP 160/70; PULSE 96; RESP 16; TEMP 36.3; O2SAT 96
[2024-06-29] MEDS: PROMETHAZINE/CODEINE (*CRX) 5 ML SYRUP PO (21:53)
[2024-06-30] VITALS: BP 129/87; PULSE 93; RESP 14; TEMP 37.2; O2SAT 96
[2024-06-30] MEDS: CARBIDOPA/LEVODOPA 25/250 MG TABLET 2 TABLET PO ×4 (06:08→21:28)
[2024-06-30] MEDS: CARBIDOPA PO ×4 (06:08→21:28)
[2024-06-30] MEDS: LEVODOPA PO ×4 (06:08→21:28)
[2024-06-30 08:00] VITALS: O2SAT 96
[2024-06-30] MEDS: TIZANIDINE HCL 4 MG TABLET PO ×2 (08:08→16:38)
[2024-06-30] MEDS: PRAMIPEXOLE 1 MG TABLET PO ×3 (08:08→16:38)
[2024-06-30] MEDS: AMANTADINE HCL 100 MG CAPSULE PO ×3 (08:08→16:38)
--- NOTE | 2024-06-30 09:39 | P.PNIM_ITS ---
Progress Note: A&P Assessment and Plan (1) COVID: Code(s): U07.1 - COVID-19 Status: Acute Assessment and Plan: * Respiratory panel positive for COVID. * Good O2 sats on RA > 92 %. * Does not meet criteria for Remdesivir currently and we'll hold. * Continue supportive care. * continue Flonase 06/27/24: * Continue supportive care. * Still does not meet requirements for Remdesivir. * Goal of Oxygen sats >92% * Continue isolation. patient on room air - improving (2) Weakness: Code(s): R53.1 - Weakness Status: Acute Assessment and Plan: * Possibly related to Parkinson's and worsened by # 1 above. * Continue PT and OT. * Case coordination consulted for SNF. * Fall precautions. 06/27/24: * Pt with unsteady, shuffling gait. * High fall risk. * Agree with SNF placement upon discharge. 06/28- placement pending- continue to work with pt/ot (3) Frequent falls: Code(s): R29.6 - Repeated falls Status: Acute Assessment and Plan: * Likely secondary to weakness related to Parkinson's and complicated by COVID infection. * Continue fall precautions. * Referral for Rehab per case mgt. (4) Parkinson disease: Qualifiers: Dyskinesia presence: unspecified whether dyskinesia Fluctuating manifestations: unspecified whether manifestations fluctuate Qualified Code(s): G20.A1 - Parkinson's disease without dyskinesia, without mention of fluctuations Code(s): G20 - Parkinson's disease Status: Acute Assessment and Plan: * continue amantadine, Sinemet, Mirapex, and Zanaflex * High fall risk * Rehab on discharge (5) Obstructive sleep apnea (adult) (pediatric): Code(s): G47.33 - Obstructive sleep apnea (adult) (pediatric) Status: Acute Assessment and Plan: * Continue CPAP at bedtime. (6) Constipation: Code(s): K59.00 - Constipation, unspecified Status: Acute Assessment and Plan: severe constipation seen on CT with fecalization of small bowel lactulose oral and enema ordered with results patient will need to be discharged on aggressive bowel protocol Time Spent With Patient Time with patient: Greater than 35 minutes Subjective Date/time seen: 06/30/24 09:39 Interval history: 74-year-old male with a significant past medical history Parkinson's, obstructive sleep apnea, GERD, neuropathy who presented to the hospital for evaluation of weakness and frequent falls. Pt examined at the bedside today. Discharge pending halfway placement. No new complaints or symptoms. Continue to work with PT/OT- still very weak but did better today. patient had a bowel movement today and started on aggressive bowel protocol patient is medically ready for discharge, pending insurance authorization pending, requesting a P2P. Review of Systems Review of Systems: generalized weakness and fatigue All systems reviewed & are unremarkable except as noted in HPI and below Constitutional: Constitutional: Reports as per HPI and Reports no additional constitutional complaints Eyes: Eyes: Reports as per HPI and Reports no additional eye complaints ENT: Reports system reviewed and no additional complaints, except as documented and Reports as per HPI Cardiovascular: Cardiovascular: Reports as per HPI and Reports no additional cardiovascular complaints Respiratory: Respiratory: Reports as per HPI and Reports no additional respiratory complaints Gastrointestinal: Gastrointestinal: Reports as per HPI and Reports no additional gastrointestinal complaints Genitourinary: Genitourinary: Reports no additional male genitourinary complaints and Reports as per HPI Musculoskeletal: Musculoskeletal: Reports no additional musculoskeletal complaints and Reports as per HPI Integumentary/Breasts: Skin/Breast: Reports system reviewed and no additional complaints, except as docu and Reports as per HPI Neurologic: Reports system reviewed and no additional complaints, except as documented and Reports as per HPI Psychiatric: Psychiatric: Reports no additional psychiatric complaints and Reports as per HPI Exam Narrative: General: Elderly male in no acute distress at this time. Coughing is improving. Head: Bruising to left frontal part Eyes: No icterus ENT: moist mucous membranes, nasal passages clear Neck: supple, no JVD, no adenopathy, trachea midline Cardiac: Normal S1 and S2. No murmurs, peripheral pulses intact. Respiratory: Lungs clear to auscultation, no adventitious lung sounds, Gastrointestinal: soft, non-distended, non-tender, normoactive bowel sounds. Extremities: no edema, tremors Skin: clean, dry, intact. No wounds or lesions. Neuro: Alert and oriented x4, cranial nerves intact, slight tremors to jairo arms and hands. Psych: normal mood, normal affect, interactive Const: General: comfortable Objective Data Vital Signs Vital Signs: Vital Signs - 24 hr 06/29/24 13:58 06/29/24 21:48 06/29/24 20:00 Temperature 97.2 F L 97.4 F L Pulse Rate 77 96 96 Respiratory Rate 22 H 16 16 Blood Pressure 148/42 H 160/70 H Pulse Oximetry 90 96 96 Oxygen Delivery Room Air 06/30/24 00:00 06/30/24 08:00 Temperature 99.0 F Pulse Rate 93 Respiratory Rate 14 Blood Pressure 129/87 Pulse Oximetry 96 96 Oxygen Delivery Room Air Intake/Output Intake/Output: Intake & Output 06/27/24 06/28/24 06/29/24 06/30/24 23:59 23:59 23:59 23:59 Intake Total 1452 1284 1220 250 Output Total 500 700 600 500 Balance 952 584 620 -250 Meds/Results Medications: Active Medications Generic Name Dose Route Start Last Admin Trade Name Freq PRN Reason Stop Dose Admin Acetaminophen 1,000 mg 06/27/24 17:35 06/27/24 20:27 Acetaminophen 500 Mg Tablet PO 1,000 mg Q6H PRN Administration Mild Pain (1-3) or Fever Amantadine HCl 100 mg 06/26/24 09:00 06/30/24 08:08 Amantadine Hcl 100 Mg Capsule PO 100 mg TID DALE Administration Benzonatate 200 mg 06/26/24 21:36 06/28/24 21:11 Benzonatate 100 Mg Capsule PO 200 mg TID PRN Administration Cough Bisacodyl 5 mg 06/29/24 07:32 06/29/24 08:18 Bisacodyl 5 Mg Tablet Ec PO 5 mg QAM PRN Administration Constipation Carbidopa/Levodopa 1 tablet 06/25/24 22:00 06/30/24 06:08 Carbidopa/Levodopa 12.5/125 Mg Tablet PO 1 tablet QID@0700,1200,1700,2200 DALE Administration Carbidopa/Levodopa 2 tablet 06/25/24 22:00 06/30/24 06:08 Carbidopa/Levodopa 25/250 Mg Tablet PO 2 tablet QID@0700,1200,1700,2200 DALE Administration Enoxaparin Sodium 40 mg 06/26/24 09:00 06/27/24 09:58 Enoxaparin 40 Mg/0.4 Ml Syringe SUB-Q 40 mg DAILY DALE Administration Fluticasone Propionate 2 spray 06/25/24 18:52 Fluticasone Propionate 0.05% Na Spr 16 Gm Btl (*Bkc) NASAL PRN PRN allergies Gabapentin 600 mg 06/25/24 21:00 06/29/24 21:41 Gabapentin 300 Mg Capsule PO 600 mg QHS DALE Administration Lactulose 45 gm 06/29/24 09:00 06/30/24 08:12 Lactulose 20 Gm/30 Ml Udc PO Not Given QAM DALE Ondansetron HCl 4 mg 06/25/24 21:47 Ondansetron Inj 4 Mg/2 Ml Vial IV PUSH Q6H PRN Nausea And Vomiting Polyethylene Glycol 17 gm 06/29/24 07:32 06/29/24 08:19 Polyethylene Glycol 3350 17 Gm Powd.Pack PO 17 gm QAM PRN Administration Constipation Pramipexole Dihydrochloride 1 mg 06/26/24 09:00 06/30/24 08:08 Pramipexole 1 Mg Tablet PO 1 mg TID DALE Administration Promethazine HCl/Codeine 5 ml 06/27/24 18:06 06/29/24 21:53 Promethazine/Codeine (*Crx) 5 Ml Syrup PO 5 ml Q4H PRN Administration Cough Tizanidine HCl 4 mg 06/26/24 09:00 06/30/24 08:08 Tizanidine Hcl 4 Mg Tablet PO 4 mg BID DALE Administration Trazodone HCl 100 mg 06/25/24 21:00 06/29/24 21:41 Trazodone Hcl 50 Mg Tablet PO 100 mg QHS DALE Administration Radiology Results: ITS Impressions Head CT 06/25/24 13:59 IMPRESSION: 1. Normal aging brain. Cervical Spine CT 06/25/24 14:30 IMPRESSION: Moderately severe cervical spondylosis; no fracture or dislocation or locked facet Abdomen/Pelvis CT 06/27/24 19:10 IMPRESSION: 1. Hepatomegaly. 2. Tiny stone in the right kidney lower pole. 3. No evidence of appendicitis, diverticulitis or intestinal obstruction. 4. Underfilled urinary bladder with thickened wall. Clinical correlation advised. 5. Bilateral fat containing inguinal areas larger on the left side. 6. Constipation. Chest X-Ray 06/27/24 21:07 IMPRESSION: Cardiomegaly with cardiac decompensation and pulmonary edema. Superimposed pneumonitis is highly suggestive Quality VTE Prophylaxis VTE prophylaxis: pharmacologic ordered
[2024-06-30 13:56] VITALS: BP 148/39; PULSE 74; RESP 18; TEMP 36.5; O2SAT 94
[2024-06-30 14:09] VITALS: BP 126/69
[2024-06-30 19:45] VITALS: BP 135/76; PULSE 75; RESP 18; TEMP 36.1; O2SAT 93
[2024-06-30 20:00] VITALS: PULSE 75; RESP 18; O2SAT 93
[2024-06-30] MEDS: traZODone HCL 50 MG TABLET 100 MG PO (21:28)
[2024-06-30] MEDS: GABAPENTIN 300 MG CAPSULE 600 MG PO (21:28)
[2024-06-30] MEDS: PROMETHAZINE/CODEINE (*CRX) 5 ML SYRUP PO (22:36)
[2024-07-01 04:20] VITALS: BP 146/47; PULSE 68; RESP 18; TEMP 35.7; O2SAT 94
[2024-07-01] MEDS: CARBIDOPA PO ×4 (06:29→21:58)
[2024-07-01] MEDS: LEVODOPA PO ×4 (06:29→21:58)
[2024-07-01] MEDS: CARBIDOPA/LEVODOPA 25/250 MG TABLET 2 TABLET PO ×4 (06:29→21:58)
[2024-07-01] MEDS: TIZANIDINE HCL 4 MG TABLET PO ×2 (07:34→16:44)
[2024-07-01] MEDS: AMANTADINE HCL 100 MG CAPSULE PO ×3 (07:34→16:44)
[2024-07-01] MEDS: PRAMIPEXOLE 1 MG TABLET PO ×3 (07:34→16:44)
[2024-07-01] MEDS: BENZONATATE 100 MG CAPSULE 200 MG PO (07:38)
[2024-07-01 08:00] VITALS: O2SAT 94
--- NOTE | 2024-07-01 08:15 | P.PNIM_ITS ---
Progress Note: A&P Assessment and Plan (1) COVID: Code(s): U07.1 - COVID-19 Status: Acute Assessment and Plan: * Respiratory panel positive for COVID. * Good O2 sats on RA > 92 %. * Does not meet criteria for Remdesivir currently and we'll hold. * Continue supportive care. * continue Flonase 06/27/24: * Continue supportive care. * Still does not meet requirements for Remdesivir. * Goal of Oxygen sats >92% * Continue isolation. patient on room air - improving (2) Weakness: Code(s): R53.1 - Weakness Status: Acute Assessment and Plan: * Possibly related to Parkinson's and worsened by # 1 above. * Continue PT and OT. * Case coordination consulted for SNF. * Fall precautions. 06/27/24: * Pt with unsteady, shuffling gait. * High fall risk. * Agree with SNF placement upon discharge. 06/28- placement pending- continue to work with pt/ot plan to go to rehab filingappeal (3) Frequent falls: Code(s): R29.6 - Repeated falls Status: Acute Assessment and Plan: * Likely secondary to weakness related to Parkinson's and complicated by COVID infection. * Continue fall precautions. * Referral for Rehab per case mgt. (4) Parkinson disease: Qualifiers: Dyskinesia presence: unspecified whether dyskinesia Fluctuating manifestations: unspecified whether manifestations fluctuate Qualified Code(s): G20.A1 - Parkinson's disease without dyskinesia, without mention of fluctuations Code(s): G20 - Parkinson's disease Status: Acute Assessment and Plan: * continue amantadine, Sinemet, Mirapex, and Zanaflex * High fall risk * Rehab on discharge (5) Obstructive sleep apnea (adult) (pediatric): Code(s): G47.33 - Obstructive sleep apnea (adult) (pediatric) Status: Acute Assessment and Plan: * Continue CPAP at bedtime. (6) Constipation: Code(s): K59.00 - Constipation, unspecified Status: Acute Assessment and Plan: severe constipation seen on CT with fecalization of small bowel lactulose oral and enema ordered with results patient will need to be discharged on aggressive bowel protocol Time Spent With Patient Time with patient: Greater than 35 minutes Subjective Date/time seen: 07/01/24 08:15 Interval history: 74-year-old male with a significant past medical history Parkinson's, obstructive sleep apnea, GERD, neuropathy who presented to the hospital for evaluation of weakness and frequent falls. Pt examined at the bedside today. Discharge pending [facility] placement. No new complaints or symptoms. Continue to work with PT/OT- still very weak but did better today. patient had a bowel movement today and started on aggressive bowel protocol patient is medically ready for discharge, pending insurance authorization pending, requesting a P2P. unable to get a hold of [employer] to do a peer to peer, rehab denied Now filing appeal. patient has no new complaints Review of Systems Review of Systems: generalized weakness and fatigue- improving All systems reviewed & are unremarkable except as noted in HPI and below Constitutional: Constitutional: Reports as per HPI and Reports no additional constitutional complaints Eyes: Eyes: Reports as per HPI and Reports no additional eye complaints ENT: Reports system reviewed and no additional complaints, except as documented and Reports as per HPI Cardiovascular: Cardiovascular: Reports as per HPI and Reports no additional cardiovascular complaints Respiratory: Respiratory: Reports as per HPI and Reports no additional respiratory complaints Gastrointestinal: Gastrointestinal: Reports as per HPI and Reports no additional gastrointestinal complaints Genitourinary: Genitourinary: Reports no additional male genitourinary complaints and Reports as per HPI Musculoskeletal: Musculoskeletal: Reports no additional musculoskeletal complaints and Reports as per HPI Integumentary/Breasts: Skin/Breast: Reports system reviewed and no additional complaints, except as docu and Reports as per HPI Neurologic: Reports system reviewed and no additional complaints, except as documented and Reports as per HPI Psychiatric: Psychiatric: Reports no additional psychiatric complaints and Reports as per HPI Exam Narrative: General: Elderly male in no acute distress at this time. Coughing is improving. Head: Bruising to left frontal part Eyes: No icterus ENT: moist mucous membranes, nasal passages clear Neck: supple, no JVD, no adenopathy, trachea midline Cardiac: Normal S1 and S2. No murmurs, peripheral pulses intact. Respiratory: Lungs clear to auscultation, no adventitious lung sounds, Gastrointestinal: soft, non-distended, non-tender, normoactive bowel sounds. Extremities: no edema, tremors Skin: clean, dry, intact. No wounds or lesions. Neuro: Alert and oriented x4, cranial nerves intact, slight tremors to jairo arms and hands. Psych: normal mood, normal affect, interactive Const: General: comfortable Objective Data Vital Signs Vital Signs: Vital Signs - 24 hr 06/30/24 13:56 06/30/24 14:09 06/30/24 19:45 Temperature 97.7 F 96.9 F L Pulse Rate 74 75 Respiratory Rate 18 18 Blood Pressure 148/39 H 126/69 135/76 Pulse Oximetry 94 93 Oxygen Delivery 06/30/24 20:00 07/01/24 04:20 Temperature 96.3 F L Pulse Rate 75 68 Respiratory Rate 18 18 Blood Pressure 146/47 H Pulse Oximetry 93 94 Oxygen Delivery Room Air Intake/Output Intake/Output: Intake & Output 06/28/24 06/29/24 06/30/24 07/01/24 23:59 23:59 23:59 23:59 Intake Total 1284 1220 970 572 Output Total 700 600 500 400 Balance 584 620 470 172 Meds/Results Medications: Active Medications Generic Name Dose Route Start Last Admin Trade Name Freq PRN Reason Stop Dose Admin Acetaminophen 1,000 mg 06/27/24 17:35 06/27/24 20:27 Acetaminophen 500 Mg Tablet PO 1,000 mg Q6H PRN Administration Mild Pain (1-3) or Fever Amantadine HCl 100 mg 06/26/24 09:00 07/01/24 07:34 Amantadine Hcl 100 Mg Capsule PO 100 mg TID DALE Administration Benzonatate 200 mg 06/26/24 21:36 07/01/24 07:38 Benzonatate 100 Mg Capsule PO 200 mg TID PRN Administration Cough Bisacodyl 5 mg 06/29/24 07:32 06/29/24 08:18 Bisacodyl 5 Mg Tablet Ec PO 5 mg QAM PRN Administration Constipation Carbidopa/Levodopa 1 tablet 06/25/24 22:00 07/01/24 06:29 Carbidopa/Levodopa 12.5/125 Mg Tablet PO 1 tablet QID@0700,1200,1700,2200 DALE Administration Carbidopa/Levodopa 2 tablet 06/25/24 22:00 07/01/24 06:29 Carbidopa/Levodopa 25/250 Mg Tablet PO 2 tablet QID@0700,1200,1700,2200 DALE Administration Enoxaparin Sodium 40 mg 06/26/24 09:00 06/27/24 09:58 Enoxaparin 40 Mg/0.4 Ml Syringe SUB-Q 40 mg DAILY DALE Administration Fluticasone Propionate 2 spray 06/25/24 18:52 Fluticasone Propionate 0.05% Na Spr 16 Gm Btl (*Bkc) NASAL PRN PRN allergies Gabapentin 600 mg 06/25/24 21:00 06/30/24 21:28 Gabapentin 300 Mg Capsule PO 600 mg QHS DALE Administration Lactulose 45 gm 06/29/24 09:00 07/01/24 07:28 Lactulose 20 Gm/30 Ml Udc PO Not Given QAM DALE Ondansetron HCl 4 mg 06/25/24 21:47 Ondansetron Inj 4 Mg/2 Ml Vial IV PUSH Q6H PRN Nausea And Vomiting Polyethylene Glycol 17 gm 06/29/24 07:32 06/29/24 08:19 Polyethylene Glycol 3350 17 Gm Powd.Pack PO 17 gm QAM PRN Administration Constipation Pramipexole Dihydrochloride 1 mg 06/26/24 09:00 07/01/24 07:34 Pramipexole 1 Mg Tablet PO 1 mg TID DALE Administration Promethazine HCl/Codeine 5 ml 06/27/24 18:06 06/30/24 22:36 Promethazine/Codeine (*Crx) 5 Ml Syrup PO 5 ml Q4H PRN Administration Cough Tizanidine HCl 4 mg 06/26/24 09:00 07/01/24 07:34 Tizanidine Hcl 4 Mg Tablet PO 4 mg BID DALE Administration Trazodone HCl 100 mg 06/25/24 21:00 06/30/24 21:28 Trazodone Hcl 50 Mg Tablet PO 100 mg QHS DALE Administration Radiology Results: ITS Impressions Head CT 06/25/24 13:59 IMPRESSION: 1. Normal aging brain. Cervical Spine CT 06/25/24 14:30 IMPRESSION: Moderately severe cervical spondylosis; no fracture or dislocation or locked facet Abdomen/Pelvis CT 06/27/24 19:10 IMPRESSION: 1. Hepatomegaly. 2. Tiny stone in the right kidney lower pole. 3. No evidence of appendicitis, diverticulitis or intestinal obstruction. 4. Underfilled urinary bladder with thickened wall. Clinical correlation advised. 5. Bilateral fat containing inguinal areas larger on the left side. 6. Constipation. Chest X-Ray 06/27/24 21:07 IMPRESSION: Cardiomegaly with cardiac decompensation and pulmonary edema. Superimposed pneumonitis is highly suggestive Quality VTE Prophylaxis VTE prophylaxis: pharmacologic ordered
--- NOTE | 2024-07-01 11:23 | PCNWS ---
Weekly nutritional screen. Patient is tolerating current diet with adequate intake, 90-100. No weight loss reported. No nutritional needs at this time.
[2024-07-01 16:00] VITALS: BP 159/56; PULSE 70; RESP 18; TEMP 37.7; O2SAT 97
[2024-07-01 21:09] VITALS: BP 138/63; PULSE 76; RESP 16; TEMP 36.7; O2SAT 95
[2024-07-01] MEDS: traZODone HCL 50 MG TABLET 100 MG PO (21:58)
[2024-07-01] MEDS: GABAPENTIN 300 MG CAPSULE 600 MG PO (21:58)
[2024-07-01] MEDS: PROMETHAZINE/CODEINE (*CRX) 5 ML SYRUP PO (21:59)
[2024-07-01 22:44] VITALS: O2SAT 95
[2024-07-02 05:00] VITALS: BP 142/62; PULSE 80; RESP 16; TEMP 36.8; O2SAT 100
[2024-07-02] MEDS: LEVODOPA PO ×4 (06:26→21:13)
[2024-07-02] MEDS: CARBIDOPA PO ×4 (06:26→21:13)
[2024-07-02] MEDS: CARBIDOPA/LEVODOPA 25/250 MG TABLET 2 TABLET PO ×4 (06:26→21:13)
[2024-07-02] MEDS: TIZANIDINE HCL 4 MG TABLET PO ×2 (08:12→16:45)
[2024-07-02] MEDS: PRAMIPEXOLE 1 MG TABLET PO ×3 (08:12→16:45)
[2024-07-02] MEDS: BENZONATATE 100 MG CAPSULE 200 MG PO (08:12)
[2024-07-02] MEDS: PROMETHAZINE/CODEINE (*CRX) 5 ML SYRUP PO (08:12)
[2024-07-02] MEDS: AMANTADINE HCL 100 MG CAPSULE PO ×3 (08:12→16:45)
--- NOTE | 2024-07-02 08:25 | P.PNIM_ITS ---
Progress Note: A&P Assessment and Plan (1) COVID: Code(s): U07.1 - COVID-19 Status: Acute Assessment and Plan: * Respiratory panel positive for COVID. * Good O2 sats on RA > 92 %. * Does not meet criteria for Remdesivir currently and we'll hold. * Continue supportive care. * continue Flonase 06/27/24: * Continue supportive care. * Still does not meet requirements for Remdesivir. * Goal of Oxygen sats >92% * Continue isolation. patient on room air - improving (2) Weakness: Code(s): R53.1 - Weakness Status: Acute Assessment and Plan: * Possibly related to Parkinson's and worsened by # 1 above. * Continue PT and OT. * Case coordination consulted for SNF. * Fall precautions. 06/27/24: * Pt with unsteady, shuffling gait. * High fall risk. * Agree with SNF placement upon discharge. 06/28- placement pending- continue to work with pt/ot plan to go to rehab filingappeal (3) Frequent falls: Code(s): R29.6 - Repeated falls Status: Acute Assessment and Plan: * Likely secondary to weakness related to Parkinson's and complicated by COVID infection. * Continue fall precautions. * Referral for Rehab per case mgt. (4) Parkinson disease: Qualifiers: Dyskinesia presence: unspecified whether dyskinesia Fluctuating manifestations: unspecified whether manifestations fluctuate Qualified Code(s): G20.A1 - Parkinson's disease without dyskinesia, without mention of fluctuations Code(s): G20 - Parkinson's disease Status: Acute Assessment and Plan: * continue amantadine, Sinemet, Mirapex, and Zanaflex * High fall risk * Rehab on discharge (5) Obstructive sleep apnea (adult) (pediatric): Code(s): G47.33 - Obstructive sleep apnea (adult) (pediatric) Status: Acute Assessment and Plan: * Continue CPAP at bedtime. (6) Constipation: Code(s): K59.00 - Constipation, unspecified Status: Acute Assessment and Plan: severe constipation seen on CT with fecalization of small bowel lactulose oral and enema ordered with results patient will need to be discharged on aggressive bowel protocol Time Spent With Patient Time with patient: 25 - 35 minutes Subjective Date/time seen: 07/02/24 08:25 Interval history: 74-year-old male with a significant past medical history Parkinson's, obstructive sleep apnea, GERD, neuropathy who presented to the hospital for evaluation of weakness and frequent falls. Pt examined at the bedside today. Discharge pending [facility] placement. No new complaints or symptoms. Continue to work with PT/OT- still very weak but did better today. patient had a bowel movement today and started on aggressive bowel protocol patient is medically ready for discharge, pending insurance authorization pending, insurance company rehab denied Now filing appeal. patient has no new complaints. No change plan. Review of Systems Review of Systems: generalized weakness and fatigue- improving All systems reviewed & are unremarkable except as noted in HPI and below Constitutional: Constitutional: Reports as per HPI and Reports no additional constitutional complaints Eyes: Eyes: Reports as per HPI and Reports no additional eye complaints ENT: Reports system reviewed and no additional complaints, except as documented and Reports as per HPI Cardiovascular: Cardiovascular: Reports as per HPI and Reports no additional c ardiovascular complaints Respiratory: Respiratory: Reports as per HPI and Reports no additional respiratory complaints Gastrointestinal: Gastrointestinal: Reports as per HPI and Reports no additional gastrointestinal complaints Genitourinary: Genitourinary: Reports no additional male genitourinary complaints and Reports as per HPI Musculoskeletal: Musculoskeletal: Reports no additional musculoskeletal complaints and Reports as per HPI Integumentary/Breasts: Skin/Breast: Reports system reviewed and no additional complaints, except as docu and Reports as per HPI Neurologic: Reports system reviewed and no additional complaints, except as documented and Reports as per HPI Psychiatric: Psychiatric: Reports no additional psychiatric complaints and Reports as per HPI Exam Narrative: General: Elderly male in no acute distress at this time. Coughing is improving. Head: Bruising to left frontal part Eyes: No icterus ENT: moist mucous membranes, nasal passages clear Neck: supple, no JVD, no adenopathy, trachea midline Cardiac: Normal S1 and S2. No murmurs, peripheral pulses intact. Respiratory: Lungs clear to auscultation, no adventitious lung sounds, Gastrointestinal: soft, non-distended, non-tender, normoactive bowel sounds. Extremities: no edema, tremors Skin: clean, dry, intact. No wounds or lesions. Neuro: Alert and oriented x4, cranial nerves intact, slight tremors to jairo arms and hands. Psych: normal mood, normal affect, interactive Const: General: comfortable Objective Data Vital Signs Vital Signs: Vital Signs - 24 hr 07/01/24 16:00 07/01/24 21:09 07/01/24 20:00 Temperature 99.8 F H 98.1 F Pulse Rate 70 76 Respiratory Rate 18 16 Blood Pressure 159/56 H 138/63 Pulse Oximetry 97 95 Oxygen Delivery Room Air 07/01/24 22:44 07/02/24 05:00 Temperature 98.3 F Pulse Rate 80 Respiratory Rate 16 Blood Pressure 142/62 H Pulse Oximetry 95 100 Oxygen Delivery Intake/Output Intake/Output: Intake & Output 06/29/24 06/30/24 07/01/24 07/02/24 23:59 23:59 23:59 23:59 Intake Total 3091 532 6711 350 Output Total 600 500 400 500 Balance 597 203 9210 -150 Meds/Results Medications: Active Medications Generic Name Dose Route Start Last Admin Trade Name Freq PRN Reason Stop Dose Admin Acetaminophen 1,000 mg 06/27/24 17:35 06/27/24 20:27 Acetaminophen 500 Mg Tablet PO 1,000 mg Q6H PRN Administration Mild Pain (1-3) or Fever Amantadine HCl 100 mg 06/26/24 09:00 07/02/24 08:12 Amantadine Hcl 100 Mg Capsule PO 100 mg TID DALE Administration Benzonatate 200 mg 06/26/24 21:36 07/02/24 08:12 Benzonatate 100 Mg Capsule PO 200 mg TID PRN Administration Cough Bisacodyl 5 mg 06/29/24 07:32 06/29/24 08:18 Bisacodyl 5 Mg Tablet Ec PO 5 mg QAM PRN Administration Constipation Carbidopa/Levodopa 1 tablet 06/25/24 22:00 07/02/24 06:26 Carbidopa/Levodopa 12.5/125 Mg Tablet PO 1 tablet QID@0700,1200,1700,2200 DALE Administration Carbidopa/Levodopa 2 tablet 06/25/24 22:00 07/02/24 06:26 Carbidopa/Levodopa 25/250 Mg Tablet PO 2 tablet QID@0700,1200,1700,2200 DALE Administration Enoxaparin Sodium 40 mg 06/26/24 09:00 06/27/24 09:58 Enoxaparin 40 Mg/0.4 Ml Syringe SUB-Q 40 mg DAILY DALE Administration Fluticasone Propionate 2 spray 06/25/24 18:52 Fluticasone Propionate 0.05% Na Spr 16 Gm Btl (*Bkc) NASAL PRN PRN allergies Gabapentin 600 mg 06/25/24 21:00 07/01/24 21:58 Gabapentin 300 Mg Capsule PO 600 mg QHS DALE Administration Lactulose 45 gm 06/29/24 09:00 07/01/24 07:28 Lactulose 20 Gm/30 Ml Udc PO Not Given QAM DALE Ondansetron HCl 4 mg 06/25/24 21:47 Ondansetron Inj 4 Mg/2 Ml Vial IV PUSH Q6H PRN Nausea And Vomiting Polyethylene Glycol 17 gm 06/29/24 07:32 06/29/24 08:19 Polyethylene Glycol 3350 17 Gm Powd.Pack PO 17 gm QAM PRN Administration Constipation Pramipexole Dihydrochloride 1 mg 06/26/24 09:00 07/02/24 08:12 Pramipexole 1 Mg Tablet PO 1 mg TID DALE Administration Promethazine HCl/Codeine 5 ml 06/27/24 18:06 07/02/24 08:12 Promethazine/Codeine (*Crx) 5 Ml Syrup PO 5 ml Q4H PRN Administration Cough Tizanidine HCl 4 mg 06/26/24 09:00 07/02/24 08:12 Tizanidine Hcl 4 Mg Tablet PO 4 mg BID DALE Administration Trazodone HCl 100 mg 06/25/24 21:00 07/01/24 21:58 Trazodone Hcl 50 Mg Tablet PO 100 mg QHS DALE Administration Radiology Results: ITS Impressions Head CT 06/25/24 13:59 IMPRESSION: 1. Normal aging brain. Cervical Spine CT 06/25/24 14:30 IMPRESSION: Moderately severe cervical spondylosis; no fracture or dislocation or locked facet Abdomen/Pelvis CT 06/27/24 19:10 IMPRESSION: 1. Hepatomegaly. 2. Tiny stone in the right kidney lower pole. 3. No evidence of appendicitis, diverticulitis or intestinal obstruction. 4. Underfilled urinary bladder with thickened wall. Clinical correlation advised. 5. Bilateral fat containing inguinal areas larger on the left side. 6. Constipation. Chest X-Ray 10/28/24 21:07 IMPRESSION: Cardiomegaly with cardiac decompensation and pulmonary edema. Superimposed pneumonitis is highly suggestive Quality VTE Prophylaxis VTE prophylaxis: pharmacologic ordered
[2024-07-02 11:12] VITALS: BP 133/42; PULSE 66; RESP 18; TEMP 36.6; O2SAT 97
[2024-07-02] MEDS: LACTULOSE 20 GM/30 ML UDC 45 GM PO (11:56)
[2024-07-02 20:00] VITALS: PULSE 74; RESP 26; O2SAT 94
[2024-07-02] MEDS: traZODone HCL 50 MG TABLET 100 MG PO (21:01)
[2024-07-02] MEDS: GABAPENTIN 300 MG CAPSULE 600 MG PO (21:02)
[2024-07-02 21:38] VITALS: BP 150/48; PULSE 74; RESP 26; TEMP 37.7; O2SAT 94
[2024-07-02 21:50] VITALS: PULSE 69; O2SAT 95
--- NOTE | 2024-07-03 01:29 | PC.NURSE ---
Daylight Savings Time For Daylight Savings Time Ending in the Fall - Clocks are moved back. For Daylight Savings Time Beginning in the Spring - Clocks are moved ahead. For [facility], the time of change occurs at 0200 hrs. Time is taken from the room service food server. This entry on the patient's chart recognizes the change in time reflected during documentation. Example: 2 entries for vital signs may be charted for 0200 hrs.
[2024-07-03 06:00] VITALS: BP 137/50; PULSE 66; RESP 24; TEMP 36.2; O2SAT 96
[2024-07-03] MEDS: LEVODOPA PO ×2 (06:02→12:06)
[2024-07-03] MEDS: CARBIDOPA PO ×2 (06:02→12:06)
[2024-07-03] MEDS: CARBIDOPA/LEVODOPA 25/250 MG TABLET 2 TABLET PO ×2 (06:02→12:06)
--- NOTE | 2024-07-03 08:15 | P.PNIM_ITS ---
Progress Note: A&P Assessment and Plan (1) Constipation: Code(s): K59.00 - Constipation, unspecified Status: Acute (2) Weakness: Code(s): R53.1 - Weakness Status: Acute (3) COVID: Code(s): U07.1 - COVID-19 Status: Acute Plan (1) COVID: Code(s): U07.1 - COVID-19 Status: Acute Assessment and Plan: * Respiratory panel positive for COVID. * Good O2 sats on RA > 92 %. * Does not meet criteria for Remdesivir currently and we'll hold. * Continue supportive care. * continue Flonase 06/27/24: * Continue supportive care. * Still does not meet requirements for Remdesivir. * Goal of Oxygen sats >92% * Continue isolation. patient on room air - improving (2) Weakness: Code(s): R53.1 - Weakness Status: Acute Assessment and Plan: * Possibly related to Parkinson's and worsened by # 1 above. * Continue PT and OT. * Case coordination consulted for SNF. * Fall precautions. 06/27/24: * Pt with unsteady, shuffling gait. * High fall risk. * Agree with SNF placement upon discharge.06/28- placement pending- continue to work with pt/ot (3) Frequent falls: Code(s): R29.6 - Repeated falls Status: Acute Assessment and Plan: * Likely secondary to weakness related to Parkinson's and complicated by COVID infection. * Continue fall precautions. * Referral for Rehab per case mgt. (4) Parkinson disease: Qualifiers: Dyskinesia presence: unspecified whether dyskinesia Fluctuating manifestations: unspecified whether manifestations fluctuate Qualified Code(s): G20.A1 - Parkinson's disease without dyskinesia, without mention of fluctuations Code(s): G20 - Parkinson's disease Status: Acute Assessment and Plan: * continue amantadine, Sinemet, Mirapex, and Zanaflex * High fall risk * Rehab on discharge * (5) Obstructive sleep apnea (adult) (pediatric): Code(s): G47.33 - Obstructive sleep apnea (adult) (pediatric) Status: Acute Assessment and Plan: * Continue CPAP at bedtime. * (6) Constipation: Code(s): K59.00 - Constipation, unspecified Status: Acute Assessment and Plan: severe constipation seen on CT with fecalization of small bowel lactulose oral and enema ordered with results patient will need to be discharged on aggressive bowel protocol Patient has regular bowel movement now Subjective Date/time seen: 07/03/24 08:15 Interval history: I saw exam patient today, patient has no new issue even overnight. Patient is able to ambulate with assistance of physical therapist. Patient has a general weakness. Patient is afebrile, blood pressure stable no O2 desaturation Exam Narrative: GENERAL: Pleasant, in no acute distress. Well-nourished. - EYES: EOMI. Anicteric. - HENT: Moist mucous membranes. - LUNGS: Clear to auscultation bilateral ly, no wheezing, rhonchi, or rales. - CARDIOVASCULAR: Regular rate and rhyth m. No murmur. No JVD. - ABDOMEN: Soft, non-tender and non-dist ended. No palpable masses. - EXTREMITIES: No edema. Peripheral puls es 2+. Non-tender. - NEUROLOGIC: No focal neurological defi cits. CN II-XII grossly intact. General weakness - PSYCHIATRIC: Awake, Alert and oriented x 3. Appropriate mood and affect. - SKIN: No rashes or lesions. Warm. - LYMPH: No cervical lymphadenopathy. Objective Data Vital Signs Vital Signs: Vital Signs - 24 hr 07/02/24 11:12 07/02/24 21:38 07/02/24 20:00 Temperature 97.8 F 99.8 F H Pulse Rate 66 74 74 Respiratory Rate 18 26 H 26 H Blood Pressure 133/42 L 150/48 H Pulse Oximetry 97 94 94 Oxygen Delivery Room Air 07/02/24 21:50 07/03/24 06:00 Temperature 97.2 F L Pulse Rate 69 66 Respiratory Rate 24 H Blood Pressure 137/50 L Pulse Oximetry 95 96 Oxygen Delivery Intake/Output Intake/Output: Intake & Output 06/30/24 07/01/24 07/02/24 07/03/24 23:59 23:59 23:59 22:59 Intake Total 970 1872 830 250 Output Total 500 400 500 Balance 470 1472 330 250 Meds/Results Medications: Active Medications Generic Name Dose Route Start Last Admin Trade Name Freq PRN Reason Stop Dose Admin Acetaminophen 1,000 mg 06/27/24 17:35 06/27/24 20:27 Acetaminophen 500 Mg Tablet PO 1,000 mg Q6H PRN Administration Mild Pain (1-3) or Fever Amantadine HCl 100 mg 06/26/24 09:00 07/02/24 16:45 Amantadine Hcl 100 Mg Capsule PO 100 mg TID DALE Administration Benzonatate 200 mg 06/26/24 21:36 07/02/24 08:12 Benzonatate 100 Mg Capsule PO 200 mg TID PRN Administration Cough Bisacodyl 5 mg 06/29/24 07:32 06/29/24 08:18 Bisacodyl 5 Mg Tablet Ec PO 5 mg QAM PRN Administration Constipation Carbidopa/Levodopa 1 tablet 06/25/24 22:00 07/03/24 06:02 Carbidopa/Levodopa 12.5/125 Mg Tablet PO 1 tablet QID@0700,1200,1700,2200 DALE Administration Carbidopa/Levodopa 2 tablet 06/25/24 22:00 07/03/24 06:02 Carbidopa/Levodopa 25/250 Mg Tablet PO 2 tablet QID@0700,1200,1700,2200 DALE Administration Enoxaparin Sodium 40 mg 06/26/24 09:00 06/27/24 09:58 Enoxaparin 40 Mg/0.4 Ml Syringe SUB-Q 40 mg DAILY DALE Administration Fluticasone Propionate 2 spray 06/25/24 18:52 Fluticasone Propionate 0.05% Na Spr 16 Gm Btl (*Bkc) NASAL PRN PRN allergies Gabapentin 600 mg 06/25/24 21:00 07/02/24 21:02 Gabapentin 300 Mg Capsule PO 600 mg QHS DALE Administration Lactulose 45 gm 06/29/24 09:00 07/02/24 11:56 Lactulose 20 Gm/30 Ml Udc PO 45 gm QAM DALE Administration Ondansetron HCl 4 mg 06/25/24 21:47 Ondansetron Inj 4 Mg/2 Ml Vial IV PUSH Q6H PRN Nausea And Vomiting Polyethylene Glycol 17 gm 06/29/24 07:32 06/29/24 08:19 Polyethylene Glycol 3350 17 Gm Powd.Pack PO 17 gm QAM PRN Administration Constipation Pramipexole Dihydrochloride 1 mg 06/26/24 09:00 07/02/24 16:45 Pramipexole 1 Mg Tablet PO 1 mg TID DALE Administration Promethazine HCl/Codeine 5 ml 06/27/24 18:06 07/02/24 08:12 Promethazine/Codeine (*Crx) 5 Ml Syrup PO 5 ml Q4H PRN Administration Cough Tizanidine HCl 4 mg 06/26/24 09:00 07/02/24 16:45 Tizanidine Hcl 4 Mg Tablet PO 4 mg BID DALE Administration Trazodone HCl 100 mg 06/25/24 21:00 07/02/24 21:01 Trazodone Hcl 50 Mg Tablet PO 100 mg QHS DALE Administration Radiology Results: ITS Impressions Head CT 06/25/24 13:59 IMPRESSION: 1. Normal aging brain. Cervical Spine CT 06/25/24 14:30 IMPRESSION: Moderately severe cervical spondylosis; no fracture or dislocation or locked facet Abdomen/Pelvis CT 06/27/24 19:10 IMPRESSION: 1. Hepatomegaly. 2. Tiny stone in the right kidney lower pole. 3. No evidence of appendicitis, diverticulitis or intestinal obstruction. 4. Underfilled urinary bladder with thickened wall. Clinical correlation advised. 5. Bilateral fat containing inguinal areas larger on the left side. 6. Constipation. Chest X-Ray 06/27/24 21:07 IMPRESSION: Cardiomegaly with cardiac decompensation and pulmonary edema. Superimposed pneumonitis is highly suggestive
[2024-07-03] MEDS: TIZANIDINE HCL 4 MG TABLET PO (08:45)
[2024-07-03] MEDS: PRAMIPEXOLE 1 MG TABLET PO ×2 (08:46→12:06)
[2024-07-03] MEDS: BENZONATATE 100 MG CAPSULE 200 MG PO (08:46)
[2024-07-03] MEDS: AMANTADINE HCL 100 MG CAPSULE PO ×2 (08:46→12:06)
[2024-07-03 09:23] LABS: Hematocrit 39.5 % (42.0-52.0); Hemoglobin 13.3 g/dL (14.0-18.0); Mean Corpuscular HGB Conc 33.7 g/dl (32-36); Mean Corpuscular Hemoglobin 29.1 pg (26-34); Mean Corpuscular Volume 86.4 fl (80-100); Mean Platelet Volume 11.3 fl (7.4-10.4); Platelet Count Result 182 k/mm3 (150-375); Red Blood Count 4.57 M/mm3 (4.6-6.20); Red Cell Distribution Width 12.7 % (11.5-14.5); White Blood Count 7.3 K/mm3 (4.5-10.0)
[2024-07-03 09:36] LABS: Anion Gap 9 mmol/L (4-12); Blood Urea Nitrogen 13 mg/dL (9-20); Calcium 8.6 mg/dL (8.4-10.2); Carbon Dioxide 28 mmol/L (22-30); Chloride 102 mmol/L (98-107); Estimated CRCL calculation 98 ml/min; Estimated Glomerular Filt Rate > 60; Glucose 106 mg/dL (65-110); Potassium 4.1 mmol/L (3.4-5.0); Sodium 139 mmol/L (137-145)
--- NOTE | 2024-07-03 10:05 | P.DS_ITS ---
DS: Admitting Diagnosis Discharge Date 07/03/24 Admitting Diagnosis (1) Constipation: Code(s): K59.00 - Constipation, unspecified Status: Acute (2) Weakness: Code(s): R53.1 - Weakness Status: Acute (3) COVID: Code(s): U07.1 - COVID-19 Status: Acute DS: Discharge Diagnosis Discharge Diagnosis (1) Constipation: Code(s): K59.00 - Constipation, unspecified Status: Acute (2) Weakness: Code(s): R53.1 - Weakness Status: Acute (3) COVID: Code(s): U07.1 - COVID-19 Status: Acute DS: Summary Hospital Course Hospital Course: Per H&P, This is a 74-year-old male with a significant past medical history Parkinson's, obstructive sleep apnea, GERD, neuropathy who presented to the hospital for evaluation of weakness and frequent falls. Patient states that he has not been feeling very well for the last couple of days and has been running a low-grade temp with some mild congestion. He states he was so weak that he could not stand up from a sitting position and ended up falling striking head. .He denies any Headache, nausea, vomiting, diarrhea, abdominal pain, chest pain, shortness a breath. He is currently on room air and does not appear to be in any acute respiratory distress. of note patient was planning on moving into assisted living on July 04 however due to his weakness family brought him here for possible rehab needs. Workup in the hospital includes a chest x-ray which showed small lung volumes with mild atelectasis in the lower lung zones. A head CT which was negative for any acute intracranial process, showed normal aging brain. Cervical spine CT shown moderately severe cervical spondylosis, no fracture dislocation. Initial labs showed a white blood cell count of 11.8, hemoglobin 13.8, otherwise unremarkable. A UA was obtained and showed trace ketones otherwise unremarkable. Respiratory panel was positive for COVID. He was given 1 L of normal saline and some Tylenol while in the emergency room. The following med issues have been addressed during hospitalization (1) COVID: Code(s): U07.1 - COVID-19 Status: Acute Assessment and Plan: * Respiratory panel positive for COVID. * Good O2 sats on RA > 92 %. * Does not meet criteria for Remdesivir currently and we'll hold. * Continue supportive care. * continue Flonase 06/27/24: * Continue supportive care. * Still does not meet requirements for Remdesivir. * Goal of Oxygen sats >92% * Continue isolation. patient on room air - improving (2) Weakness: Code(s): R53.1 - Weakness Status: Acute Assessment and Plan: * Possibly related to Parkinson's and worsened by # 1 above. * Continue PT and OT. * Case coordination consulted for SNF. * Fall precautions. 06/27/24: * Pt with unsteady, shuffling gait. * High fall risk. * Agree with SNF placement upon discharge.06/28- placement pending- continue to work with pt/ot (3) Frequent falls: Code(s): R29.6 - Repeated falls Status: Acute Assessment and Plan: * Likely secondary to weakness related to Parkinson's and complicated by COVID infection. * Continue fall precautions. * Referral for Rehab per case mgt. (4) Parkinson disease: Qualifiers: Dyskinesia presence: unspecified whether dyskinesia Fluctuating manifestations: unspecified whether manifestations fluctuate Qualified Code(s): G20.A1 - Parkinson's disease without dyskinesia, without mention of fluctuations Code(s): G20 - Parkinson's disease Status: Acute Assessment and Plan: * continue amantadine, Sinemet, Mirapex, and Zanaflex * High fall risk * Rehab on discharge * (5) Obstructive sleep apnea (adult) (pediatric): Code(s): G47.33 - Obstructive sleep apnea (adult) (pediatric) Status: Acute Assessment and Plan: * Continue CPAP at bedtime. * (6) Constipation: Code(s): K59.00 - Constipation, unspecified Status: Acute Assessment and Plan: severe constipation seen on CT with fecalization of small bowel lactulose oral and enema ordered with results patient will need to be discharged on aggressive bowel protocol Patient has regular bowel movement now Time Spent with Patient Time attestation: Total time spent providing and/or coordinating discharge services: Exam Narrative: GENERAL: Pleasant, in no acute distress. Well-nourished. - EYES: EOMI. Anicteric. - HENT: Moist mucous membranes. - LUNGS: Clear to auscultation bilateral ly, no wheezing, rhonchi, or rales. - CARDIOVASCULAR: Regular rate and rhyth m. No murmur. No JVD. - ABDOMEN: Soft, non-tender and non-dist ended. No palpable masses. - EXTREMITIES: No edema. Peripheral puls es 2+. Non-tender. - NEUROLOGIC: No focal neurological defi cits. CN II-XII grossly intact. General weakness - PSYCHIATRIC: Awake, Alert and oriented x 3. Appropriate mood and affect. - SKIN: No rashes or lesions. Warm. - LYMPH: No cervical lymphadenopathy. DS: Data Data Completed and Pending Labs on day of discharge: Labs from last 24 hours 07/03/24 09:03 WBC 7.3 RBC 4.57 L Hgb 13.3 L Hct 39.5 L MCV 86.4 MCH 29.1 MCHC 33.7 RDW 12.7 Plt Count 182 D MPV 11.3 H Sodium 139 Potassium 4.1 Chloride 102 Carbon Dioxide 28 Anion Gap 9 BUN 13 Creatinine 0.70 Estim Creat Clear Calc 98 Estimated GFR > 60 Glucose 106 Calcium 8.6 Discharge Plan Discharge Attending physician on discharge: Jina Rossi Discharging Clinician: Jina Rossi Anticipated Discharge Date/Time: 06/30/24 11:00 Patient Disposition: [facility] Activity: december shower Diet: regular Discharge Instructions: Discharge instructions: Take medications as prescribed well urine the hospital your severely constipated with CT showing fecalization of small bowel. You were given several medications to relieve this problem, these medications Will likely cause diarrhea over the next 2 days. you need to take daily stool softeners, laxatives and increase your fiber to regulate year bowels You are activity as tolerated Monitor blood pressures Avoid social areas, you wear a mask when in social settings Encouraged to continue with yearly vaccinations Return to the emergency department if he developed sudden shortness of breath, chest pain, nausea, vomiting, upset stomach or intractable diarrhea Return to the emergency department if you develop fever greater than 101.5 Follow-up with: Your primary care physician within 1-2 weeks for post hospitalization check up for frequent falls and COVID Thank you for choosing [facility] for your healthcare needs Patient Instructions: Constipation (DC), High Fiber Diet (DC), Fall Prevention for Older Adults (GEN), COVID-19 (Coronavirus Disease 2019) (DC), COVID-19 and Chronic Health Conditions (DC) Stand Alone Forms: General Discharge Information Discharge Medications: Continued amantadine HCl 100 mg capsule 100 mg PO TID pramipexole [Mirapex] 1 mg tablet 1 mg PO TID carbidopa-levodopa 25-250 mg tablet 2.5 tablet PO QID Patient Comments: pt takes at 0700, 1200, 1700, and 2200 gabapentin 600 mg tablet 600 mg PO QHS Patient Comments: at bedtime trazodone 100 mg tablet 100 mg PO QHS atomoxetine 25 mg capsule 25 mg PO BID fluticasone propionate [Flonase Allergy Relief] 50 mcg/actuation spray,suspension 2 spray intranasal PRN PRN (Reason: allergies) Rx Instructions: administer into each nostril omeprazole 40 mg capsule,delayed release(DR/EC) 40 mg PO ONCE Gemtesa 75 mg Tablet 75 mg PO DAILY tizanidine 4 mg tablet 4 mg PO BID Qty: 180 1RF Date of admission: 06/25/24 16:30 Primary Care Provider: Teresa Oshea Admitting Provider: Mik Elise Attending physician on admission: Mickie Goodman Condition: Stable
[2024-07-03] MEDS: INFLUENZA VACCINE HIGH DOSE (>64) 180 MCG/0.5 ML SYRINGE IM (12:06)
== END 2024-07-03 15:10 ==
LOC: ANHED 15:33 → ANH3MEDSUR 06-27 06:13
PROVIDERS: Emergency Medicine; General Practice; Hospitalist; Nurse Practitioner Adult Health; Admitting Provider Internal Medicine; Emergency Provider Emergency Medicine; PCP Nurse Practitioner Family; Visit Provider Nurse Practitioner Adult Health
DX: U07.1 COVID-19 (principal); R53.1 Weakness; W18.30XA Fall on same level, unspecified, initial encounter; R29.6 Repeated falls; G20.A1 Parkinson's disease without dyskinesia, without mention of fluctuations; G62.9 Polyneuropathy, unspecified; R31.0 Gross hematuria; G47.33 Obstructive sleep apnea (adult) (pediatric); J45.909 Unspecified asthma, uncomplicated; M47.812 Spondylosis without myelopathy or radiculopathy, cervical region; K59.00 Constipation, unspecified; R06.82 Tachypnea, not elsewhere classified; K21.9 Gastro-esophageal reflux disease without esophagitis; Z23 Encounter for immunization; Z99.89 Dependence on other enabling machines and devices; Z86.711 Personal history of pulmonary embolism; Z79.899 Other long term (current) drug therapy
CPT/HCPCS: 36415; 70450; 71045; 71046; 72125; 74177; 80048; 80053; 81001; 81003; 83605; 83735; 85025; 85027; 85055; 85610; 85730; 87040; 87636; 90471; 90662; 93005; 96360; 96372; 97110; 97116; 97161; 97166; 97530; 97535; 99285; A9270; G0008; G0378; J1650; J7030; J7120; Q9967

== ENCOUNTER 2024-11-13 21:19 | Emergency (ER) | payer MEDICARE, SELFPAY ==
--- NOTE | ~2024-11-13 | CT_ITS ---
CT of the Abdomen and Pelvis: Indication: Perihepatic mass Technique: 2.5 mm axial scans were obtained through the abdomen and pelvis following intravenous adm inistration of 100 cc of Omnipaque 350. Dose reduction technique was used on this scan by utilizing a utomated exposure control and iterative reconstruction technique. The dose-length product (DLP) was 1 681.07 mGy-cm. COMPARISON: 06/27/2024 Findings: Scans through the lung bases are unremarkable. The liver, spleen, pancreas, gallbladder, adrenals and kidneys are within normal limits. No evidence of aortic aneurysm. No lymphadenopathy. No bowel obstruction or bowel wall thickening. There is no evidence to suggest acute appendicitis. Images through the pelvis were performed. Urinary bladder unremarkable. No pelvic mass seen. Moderate fat-containing left inguinal hernia present. No ascites. There is extensive degenerative spondylosis of the spine. Impression: No abnormal mass lesion. Moderate fat-containing left inguinal hernia. Reviewed, dictated and finalized at [facility]. Impression: No abnormal mass lesion. Moderate fat-containing left inguinal hernia.
--- NOTE | ~2024-11-13 | XR_ITS ---
Portable chest x-ray Comparison: 06/27/2024 Clinical History: Shortness of breath Findings: Possible focal hazy opacity left midlung. Right lung clear. Cardiomediastinal silhouette is stable. Bones and soft tissues are unremarkable. Impression: Possible focal hazy opacity left midlung, nonspecific. Correlate for focal pneumonia. Reviewed, dictated and finalized at location . Impression: Possible focal hazy opacity left midlung, nonspecific. Correlate for focal pneu monia.
--- NOTE | ~2024-11-13 | CT_ITS ---
Clinical Indication: DVT CT Scan of the Chest with Contrast: Technique: Contiguous sections were acquired throughout the chest after intravenous administration of 100 cc of Omnipaque 350. Dose reduction technique was used on this scan by utilizing automated expos ure control and iterative reconstruction technique. The dose-length product (DLP) was 817.27 mGy-cm. COMPARISON: 03/11/2024 Findings: There is no evidence of any significant mediastinal, hilar or axillary lymphadenopathy. There is no f illing defect in the pulmonary arterial tree to suggest pulmonary embolus. There is no evidence of ao rtic dissection or aneurysm. There is no evidence of pleural or pericardial effusion. The lungs are clear, aside from mild bibasilar atelectatic changes. Images through the upper abdomen reveal no abnormalities. Impression: No evidence of pulmonary embolus, aortic dissection, or aortic aneurysm. No significant pulmonary abnormality. Reviewed, dictated and finalized at [facility]. Impression: No evidence of pulmonary embolus, aortic dissection, or aortic aneurysm. No significant pulmonary abnormality.
[2024-11-13 21:20] VITALS: BP 186/69; PULSE 74; RESP 18; TEMP 36.9; O2SAT 97
--- NOTE | 2024-11-13 21:27 | ECG_ITS ---
Test Date: 2024-11-13 21:25:08 Measurements Intervals [place] Rate: 74 P: 27 MI: 162 QRS: -15 QRSD: 109 T: 0 QT: 398 QTc: 442 Interpretive Statements SINUS RHYTHM MINIMAL VOLTAGE CRITERIA FOR LVH, CONSIDER NORMAL VARIANT [MEETS CRITERIA IN ONE OF: R(aVL), S(V1), R(V5), R(V5/V6)+S(V1)] Nonspecific ST segment changes Compared to ECG 06/25/2024 11:59:42 ST (T wave) deviation now present Intraventricular conduction delay no longer present T-wave abnormality no longer present Electronically Signed On 11-14-2024 15:21:10 CDT by Min Ingram M.D.
[2024-11-13 21:29] VITALS: PULSE 75; O2SAT 95
[2024-11-13 21:55] LABS: Add Urine Microscopic? NO; Appearance Urine Clear (Clear); Bilirubin Urine Negative (Negative); Blood Urine Negative (Negative); Color Urine Yellow (Yellow); Glucose Urine UA Negative (Negative); Ketones Urine Trace mg/dL (Negative); Leukocyte Esterase Ur Negative LEU/UL (Negative); Nitrate Urine Negative (Negative); Protein Urine Negative (Negative); Specific Grav Ur 1.025 (1.001-1.035)
[2024-11-13 21:57] LABS: Basophils Absolute Auto 0.1 K/mm3 (0.0-0.1); Basophils Percent Auto 0.6 % (0.2-1.2); Eosinophils Absolute Auto 0.4 K/mm3 (0-0.3); Eosinophils Percent Auto 3.8 % (0-4.4); Hematocrit 41.7 % (42.0-52.0); Hemoglobin 13.5 g/dL (14.0-18.0); Immature Granulocyte Absolute 0.04 K/mm3 (0.00-0.031); Immature Granulocyte Percent A 0.4 % (0-0.5); Lymphocytes Absolute Auto 1.81 K/mm3 (0.9-3.2); Lymphocytes Percent Auto 18.8 % (18.3-44.2); Mean Corpuscular HGB Conc 32.4 g/dl (32-36); Mean Corpuscular Hemoglobin 28.5 pg (26-34); Mean Corpuscular Volume 88.2 fl (80-100); Mean Platelet Volume 11.6 fl (7.4-10.4); Monocytes Absolute Auto 0.8 K/mm3 (0.1-0.6); Monocytes Percent Auto 8.1 % (2.6-8.5); Neutrophils Absolute Auto 6.6 K/mm3 (1.3-6.7); Neutrophils Percent Auto 68.3 % (45.5-73.1); Platelet Count Result 157 k/mm3 (150-375); Red Blood Count 4.73 M/mm3 (4.6-6.20); Red Cell Distribution Width 12.9 % (11.5-14.5); White Blood Count 9.7 K/mm3 (4.5-10.0)
[2024-11-13 22:01] VITALS: BP 185/56; PULSE 68; RESP 20; O2SAT 95
[2024-11-13 22:06] LABS: Alanine Aminotransferase 8 U/L (6-50); Albumin Level 4.2 g/dL (3.5-5.1); Alkaline Phosphatase 73 U/L (38-126); Anion Gap 9 mmol/L (4-12); Aspartate Amino Transferase 18 U/L (17-59); Bilirubin,Total 0.5 mg/dL (0.2-1.3); Blood Urea Nitrogen 18 mg/dL (9-20); Carbon Dioxide 25 mmol/L (22-30); Chloride 107 mmol/L (98-107); Estimated CRCL calculation 100 ml/min; Estimated Glomerular Filt Rate > 60; Glucose 116 mg/dL (65-110); Potassium 3.5 mmol/L (3.4-5.0); Sodium 141 mmol/L (137-145)
[2024-11-13 22:19] VITALS: PULSE 68; RESP 22; O2SAT 95
--- OUTSIDE RECORDS SUMMARY | 2024-11-13 22:22 | XMS_ITS | Referral Summary ---
Author Organization [facility] Address [address] [place] [address] Care Team Providers Care Rim Roller Operator Name Role Phone Teresa Oshea NP Primary Care Provider [phone] Encounters Date Type Department Care Team Description 09/21/2024 3:00 PM AUDIT SENIOR ASSOCIATE Office Visit [facility] Movement Disorders [address] [facility] [address] [place] [address] Vanita Knott NP Levodopa-induced dyskinesia (Primary Dx); Parkinson's disease, unspecified whether dyskinesia present, unspecified whether manifestations fluctuate (HCC); Primary insomnia; Primary freezing of gait 09/05/2024 Telephone [facility] Scheduling [address] [place] [address] Vanita Knott NP Scheduling Appointments from Last 3 Months Allergies No known active allergies Medications tiZANidine (Zanaflex) 4 mg tablet Take 1 tablet (4 mg total) by mouth 2 (two) times a day 2 Active fluticasone propionate (FLONASE) 50 mcg/actuation nasal spray Administer 2 sprays into each nostril daily 3 Active carbidopa-levodop a (SINEMET) 25-250 mg per tabletIndications :Idiopathic Parkinsonism Take 2.5 tablets by mouth 4 (four) times a day 900 tablet 3 4 Active pramipexole (MIRAPEX) 1 mg tablet Take 1 tablet (1 mg total) by mouth 3 (three) times a day 270 tablet 3 4 Active amantadine (SYMMETREL) 100 mg capsule Take 1 capsule (100 mg total) by mouth 3 (three) times a day 270 capsule 3 4 Active gabapentin (NEURONTIN) 600 mg tablet TAKE 1 TABLET BY MOUTH NIGHTLY 90 tablet 3 4 Active cyanocobalamin (Vitamin B-12) 500 mcg tabletIndications :Prevention of Vitamin B12 Deficiency Take 1 tablet (500 mcg total) by mouth daily Active Gemtesa 75 mg tablet Take 75 mg by mouth seismographer before breakfast 5 Active traZODone (DESYREL) 50 mg tablet Take 1 tablet at bedtime nightly. 30 tablet 11 5 Active Active Problems Problem Noted Date Diagnosed Date Polyarthralgia 03/10/2024 Overview (03/15/2024): Labs 03/10/2024: 03/11/24: Wbc 7.9, Hgb 12.5, MCV 90, Plts 168k, CMP Cr 0.75, AST 12, ALT 6, Na 145, uric acid 4.5, CRP 0.2 mg/dL, ESR 8, RF <10, CCP 2 01/19/24: Wbc 11.5, Hgb 13.3, Plts 193k, Cr 0.80, AST 20, ALT 14, ALP 50, Na 135 01/18/24: UA neg, CRP <0.5 mg/dL, ESR 8, Blood cx negative x5 days 01/15: Wbc 16.8 01/12 uric acid 4.5, CRP 7.4 mg/dL, ESR 49 01/11: Wbc 13.5, Hgb 12.7, Plts 195k, CRP 18.1 mg/dL, ESR 66, RF 14.3, ROLANDO 1:80 homogenous, 1:80 speckled 01/10: CRP 23.1 mg/dL, ESR 54, Pro-calcitonin 1.1 01/10/24: Wbc 11.2, Hgb 12.7, Plts 146k, Cr 0.70, AST 27, ALT 8 01/08/24: Wbc 10.3, Hgb 13.2, Plts 173k, Cr 0.80, AST 23, ALT 6 01/18/24: R hip Cx neg 01/12/24 Synovial fluid R knee: 10,045 WBC, 6000 RBC, 81% neutrophils, negative Crystals; Cx neg XR R wrist volar intercalated segment instability with increased lunocapitate and decreased scapholunate angles, 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 US RLE 01/09/24: No evidence of DVT Assessment & Plan (03/10/2024 11:46 AM CDT): 73-year-old male with PMHx of asthma, KYLE, GERD, Parkinson's disease, and blood clot c/o sudden onset acute right lateral hip and knee pain in 12/2023 that improved after about 5 days. He denies any recurrence since then. There was no preceding injury, infection, or fevers and culture of synovial fluid from the right knee was negative for infection. There is no obvious synovitis or tenderness noted on peripheral exam today. Symptoms and exam are not suspicious for an autoimmune inflammatory arthritis. Will order appropriate serologies to further evaluate. Will request records from [facility] for further review. If records do not contain a synovial fluid analysis and our serologies suggest inflammation, then would consider USG knee aspiration with synovial fluid analysis. Should work up remain unremarkable, then will call with results and cancel C2 f/u. Seen with Dr. Smith. 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 man with Parkinson disease that began in 2014 at age 63 with rest tremor that was initially unilateral, slowing of gait, and joint stiffness and this has progressed to include rigidity, freezing of gait and mild cognitive issues. He had good response to levodopa with moderate peak dose dyskinesia and occasionalwearing off. His FOG has still been an issue and we tried Straterra at his behest with no major improvements so we will taper and stop that. He takes carbi/levo and pramipexole and does have dyskinesia and still has mild wearing off. At this point, his dyskinesia is better with amantadine and wearing off is improved with pramipexole (more so that with entacapone in the past). We will keep his doses the same today since he has no substantial side effects. He was put on tizanidine by another provider but does feel that this helps muscle spasms so we will allow him to continue this. He takes gabapentin for RLS and neuropathy QHS and may continue that. He doesn't think increases in carbi/levo helped FOG in any way He notes some issues with dysphagia and hypophonia and I will order ST. I will order OT for his dexterity. I will order PT for his motor symptoms. He is using his walker at all times. He should also start APDA [employer] channel exercises and may start PD Voice Project if interested. He has some occasional middle insomnia and this didn't respond much to melatonin but has responded well to PRN 100 mg trazodone but with morning grogginess. We will try doing 50 mg qhs regularly and see if that works better. He does not have RBD. He should avoid sleep aides with diphenhydramine. He had been taking tamsulosin and finasteride for his bladder but given the urgency, these were stopped in favor of Gemtesa and that has been helpful In the past, oxybutynin caused visual misperceptions and mild confusion. He may continue Metamucil for constipation but may use Miralax if needed. He should restart low dose B12 given he was borderline low in the past. We discussed briefly at last visit that he may be a good candidate for DBS given the amount of PD meds he takes with some visual misperceptions, bothersome dyskinesia (likely causing a 50 lb weight loss), and possibly MCI but that he should not expect improvement in swallowing, voice, cognition or freezing of gait/balance. He may be a candidate for the dopa sub-q pump given the propensity for dyskinesia with oral meds. PLAN (phrased as addressed to the patient): Orders for [facility]: Taper and stop atomoxetine. Week 1: 25 mg/day Week 2: stop this drug Start 50 mg of trazodone nightly (versus 50 to 100 mg PRN) for insomnia (prescriptions attached) Same carbidopa/levodopa,s amantadine, same pramipexole. Start PT, OT, and ST (orders attached). Restart B12 500 mcg/day. Assessment & Plan (04/18/2024 9:48 AM CDT): 74 y.o. man with Parkinson's disease that began in 2013 at age 63 with rest tremor that was initially unilateral, slowing of gait, and joint stiffness and this has progressed to include rigidity, freezing of gait and mild cognitive issues. He had good response to levodopa with moderate peak dose dyskinesia and occasionally wearing off. His FOG has still been an issue and we tried Straterra with no major improvements today but there have been caveats in that determination (see HPI, right leg pain then later found to have DVT) unrelated to his PD. We may try to increase that in the future but will keep the dose the same for now as there are other issues. He tried stopping entacapone and ended up hospitalized and this was restarted though it does not seem that his leg pain was at all related to PD but rather to DVT. At this point, his dyskinesia can become fairly severe and he is not noting much wearing off from dose to dose. I think he should try to cut back his 25/250 by 1/2 tab to see if he tolerates this with less dyskinesia and still not too much wearing off. If he tolerates that, we may try again to stop entacapone. He was also put on tizanidine for his leg pain (bid) and in one month after we see how he does with carbi/levo, we will taper and stop that to see if he really needs it. He doesn't think increases in carbi/levo helped FOG in any way If wearing off worsens, he will let us know. He should keep the pramipexole and amantadine the same for now. He notes some issues with dysphagia but has done ST and doesn't think he needs more. He is exercising at least 5 days per week and doesn't currently need PT. He is using his walker at all times. He should also start [employer] youtube channel exercises and may start PD Voice Project if interested. He has some occasional middle insomnia and this didn't respond much to melatonin but has responded well to low dose PRN trazodone and he should continue that. He does not have RBD. He should avoid sleep aides with diphenhydramine. He is taking tamsulosin and finasteride for his bladder but has urgency. In the past, oxybutynin caused visual misperceptions and mild confusion so could consider Myrbetriq, Gemtesa or Trospium with urologist. He may continue Metamucil for constipation but may use Miralax if needed. We discussed briefly at last visit that he may be a good candidate for DBS given the amount of PD meds he takes with some visual misperceptions, bothersome dyskinesia (likely causing a 50 lb weight loss), and possibly MCI but that he should not expect improvement in swallowing, voice, cognition or freezing of gait/balance. He may be a candidate for the dopa sub-q pump given the propensity for dyskinesia with oral meds. PLAN (phrased as addressed to the patient): - Try cutting carbi/levo to 2 tabs per dose to see if this helps dyskinesia. - In one month, taper and stop tizanidine. - If no wearing off after that, consider stopping entacapone. - Let us know if interested in PT for FOG at [facility]. - Same trazodone for sleep. - Could try an increase in Strattera for FOG after we make other changes. - Same amantadine, pramipexole, same gabapentin. - Same Metamucil. - Start APDA youtube channel exercises and PD voice project. - Strict walker use. Assessment & Plan (12/08/2023 2:27 PM CDT): 73 y.o. man with Parkinson's disease that began in 2014 at age 63 with rest tremor that was initially unilateral, slowing of gait, and joint stiffness and this has progressed to include rigidity, freezing of gait and mild cognitive issues. He had good response to levodopa with moderate peak dose dyskinesia and occasionally wearing off. His FOG has still been an issue and he is interested in trying Strattera to see if this is helpful. I will prescribe this but did warn that there is really only one small study on this drug so not to set his expectations too high. He doesn't think increases in carbi/levo helped FOG in any way and bigger doses of carbi/levo cause more dyskinesia, even with amantadine. He is not wearing off and has been able to cut his 25/250 carbi/levo from 3 to 2 tabs qid and dyskinesia improved and wearing off did not worsen. We will next try to stop entacapone to see if he really needs this and if stopping it further improves dyskinesia. If wearing off worsens, he will let us know. He should keep the pramipexole and amantadine the same. He notes some issues with dysphagia but has done ST and doesn't think he needs more. He is exercising at least 5 days per week and doesn't currently need PT. He is using his walker at all times. He should also start APDA [employer] channel exercises and may start PD Voice Project if interested. He has some occasional middle insomnia and this didn't respond much to melatonin but has responded well to low dose PRN trazodone and he should continue that. He does not have RBD. He should avoid sleep aides with diphenhydramine. He is taking tamsulosin and finasteride for his bladder but has urgency. In the past, oxybutynin caused visual misperceptions and mild confusion so could consider Myrbetriq, Gemtesa or Trospium with urologist. He is getting ready to stop tamsulosin and I told him to watch for worsened urinary retention/frequency. He may continue Metamucil for constipation but may use Miralax if needed. We discussed briefly at last visit that he may be a good candidate for DBS given the amount of PD meds he takes with some visual misperceptions, bothersome dyskinesia (likely causing a 50 lb weight loss), and possibly MCI but that he should not expect improvement in swallowing, voice, cognition or freezing of gait/balance. He may be a candidate for the dopa sub-q pump given the propensity for dyskinesia with oral meds. PLAN (phrased as addressed to the patient): - Same carbi/levo IR right now. At 2 tabs of 25/250 qid - Try to stop entacapone and see if dyskinesia further improves and if wearing off worsens. If wearing off worsens, restart it and let us know. - Same trazodone for sleep. - May start Strattera for freezing of gait, increase dose in 2 weeks, report in 4 weeks. - Same amantadine, pramipexole, same gabapentin. - Same Metamucil. - Start APDA youtube channel exercises and PD voice project. - Strict walker use. Assessment & Plan (09/03/2023 12:54 PM AUDIT SENIOR ASSOCIATE): 73 y.o. man with Parkinson's disease for 9 years that began in 2013 at age 63 with rest tremor that was initially unilateral, slowing of gait, and joint stiffness and this has progressed to include rigidity, freezing of gait and mild cognitive issues. He had good response to levodopa with mild peak dose dyskinesia and occasionally wearing off. His FOG has worsened some and he is ready to resume LSVT BIG which he found helpful in the past, he is also interested in LOUD and we will rx this. He notes some issues with dysphagia and we will order ST for this as well. He doesn't think increases in carbi/levo helped FOG in any way and bigger doses of carbi/levo cause more dyskinesia, even with amantadine. He is not wearing off but is now quite bothered by dyskinesia at peak dose and possibly end of dose. We will first attempt to cut back carbi/levo and he has been on up to 4 tabs of carbi/levo tid of 25/250 (1000 mg of carbi/levo per dose). He is currently at 3 tabs and we will cut back to 2.5 tabs then to 2 tabs to see if dyskinesia improves without worsening motor symptoms or wearing off. We could consider trying Strattera for FOG (small clinical studies showing mild success) but will hold off until we see how he does with less carbi/levo. He is also on pramipexole and entacapone but since there are no side effects, we will keep these the same for right now. He should also start APDA youtube channel exercises and may start PD Voice Project if interested. He is doing RSB and working out at the [employer] religiously. He has some occasional middle insomnia and this didn't respond much to melatonin so we will use PRN low dose trazodone. He does not have RBD. He should avoid sleep aides with diphenhydramine. He is taking tamsulosin and finasteride for his bladder but has urgency. In the past, oxybutynin caused visual misperceptions and mild confusion so could consider Myrbetriq, Gemtesa or Trospium with urologist. He may continue Metamucil for constipation but may use Miralax if needed. We discussed briefly today that he may be a good candidate given the amount of PD meds he takes with some visual misperceptions, bothersome dyskinesia (likely causing a 50 lb weight loss), and possibly MCI but that he should not expect improvement in swallowing, voice, cognition or freezing of gait/balance. He may be a candidate for the dopa sub-q pump given the propensity for dyskinesia with oral meds. PLAN (phrased as addressed to the patient): - Decrease carbi/levo to 2.5 then to 2 tabs qid to see if dyskinesia improves but watch for any worsened wearing off or motor symptoms. - Start trazodone for sleep. - Will consider Strattera for FOG in a month. - Same amantadine, entacapone, pramipexole. - Gave list of safe drugs for OAB. - Start LSVT BIG and LOUD and ST for dyshpagia. - Same Metamucil. - Start APDA [employer] channel exercises and PD voice project. - Strict walker use. Assessment & Plan (02/27/2023 9:08 AM CDT): Mr. Ori Bernardo is a 72 y.o. male, who presents for follow-up for Parkinson's disease (PD), with dyskinesias. He is about the same since the last visit. He continues with freezing of gait. His gait is better after improvement of left hip pain. He reduced the dose of levodopa back to 3 tablets four times a day, but he felt he was a bit slower without any changes in the freezing. He did not observe motor fluctuations. Dyskinesias are very mild (intermittent body rocking). He remains with difficulty sleeping and wakes up with pain in the left hip. His UPDRS is stable compared with the visits in the past - and today he is likely in the end tail of his dose even though he did not recognize any worsening. Overall, he is about the same. We discussed freezing remains the main issue and it is concerning it may be refractory to medication. He agreed to try to increase levodopa a bit more and see if it could help. Otherwise, we could try Strattera, but this can worsen sleep at night and the effects in the freezing were not tested in larger trials. In addition to increasing levodopa, we will increase gabapentin and see if he is better as far as sleep and pain at night. Plan: Increase carbidopa-levodopa 25/250 mg to 4 tablets 4 times a day. Monitor the freezing and whether you have side effects. Can consider later Strattera as an option for the freezing. Increase gabapentin to 600 mg 1 tablet prior to bedtime. Potential medication side effects were discussed during the encounter. Assessment & Plan (02/03/2023 1:27 PM CDT): Mr. Ori Bernardo is a 72 y.o. male, who presents for follow-up for Parkinson's disease (PD). He presented for an on-off evaluation. He had improvement of his UPDRS scores from 40 to 23. This confirms that levodopa works for him. However, I reviewed with him again whether he can identify motor fluctuations. Once again, he was unable to determine it. He had mild dyskinesias in the clinic and those reflect the severity of dyskinesias at home. Based on those findings, he does not fulfill criteria for DBS surgery. As long as he takes the medication on time, he does not have any fluctuations. We discussed that DBS would not bring additional improvement of the freezing and gait changes. Plan: Continue carbidopa-levodopa, pramipexole and entacapone at the same dose. Can consider LSVT-BIG program after he completes PT for his hip. Potential medication side effects were discussed during the encounter. Assessment & Plan (12/22/2022 12:50 PM CDT): Mr. Ori Bernardo is a 72 y.o. male, who presents for follow-up for PD. He presents for evaluation of DBS. His goal for DBS surgery is to be able to walk with a cane and improve the mobility. He has symptoms since age 62, with right hand tremor. Later he had changes in the mobility, with a lot of slowness of movement, low voice tone, and more recently freezing. Although there is a report in the chart of dyskinesias, he could not recall those. His said at times he would sway his trunk, but she also did the same, so she did not think it was abnormal. He cannot establish what amantadine does for him. Since 2018, he has had prescription of levodopa with four times a day intake and has also been on entacapone and pramipexole. He cannot determine wearing off during the day and does not recall it in the past. During the day, he shuffles and has freezing, mostly with gait initiation. He cannot tell whether the symptoms are worse prior to the first dose of levodopa or whether they worsen prior to the next dose of the medication. He does not have side effects from levodopa. He cannot determine the role of entacapone or pramipexole in minimizing his symptoms. His MDS-UPDRS part 3 was 54. He did not have ataxia or extra-ocular movement abnormalities. We had a long discussion about his symptoms. There is a mismatch between what he reports and what has been recorded in the chart as he does not recall motor fluctuations or dyskinesias. The main issue is actually that levodopa does not control his symptoms in terms of improving the mobility. He cannot determine clear dyskinesias or motor fluctuations. I had a long discussion with him and his about his symptoms. At this point, based on the report in the clinic, he does not fulfill criteria for DBS surgery - no clear medication-refractory motor fluctuations, dyskinesias or tremor. We talked that DBS will not bring additional improvement of his mobility. We can consider doing a on-off evaluation to see how he does. We can also titrate the dose of his medications further to see whether we have additional benefits or side effects. We can try in the future also to taper off pramipexole and entacapone and see how he does. Plan: 1. Increase carbidopa-levodopa 25/250 to 3 tablets four times a day for 1 week, then increase to 3.5 tablets four times a day for 1 week. Contact the clinic after this trial and let us know whether mobility and freezing change or if you develop any involuntary movements. 2. You will be contacted by our clinic staff to schedule a on-off evaluation. Potential medication side effects were discussed during the encounter. Assessment & Plan (10/20/2022 2:03 PM AUDIT SENIOR ASSOCIATE): ASSESSMENT - 72 y.o. man with Parkinson's disease for 9 years that began in 2014 at age 63 with rest tremor that was initially unilateral, slowing of gait, and joint stiffness and this has progressed to include rigidity, freezing of gait and mild cognitive issues. He had at least a subjective, and likely objective, response to levodopa with peak dose dyskinesia and wearing off. - Motor symptoms:His FOG has worsened some and he has never had PT for this which I will order today. He doesn't think the increase in carbi/levo at last visit helped and he has more dyskinesia, even with amantadine. He is also on pramipexole and entacapone but notes no wearing off. I will cut his carbi/levo 25/250 back to 2.5 tabs per dose and if no worsening of gait or wearing off, he can go to 2 25/250s per dose in a week to see if this helps dyskinesia. He should also start [employer] channel exercises and may start PD Voice Project if interested. He is doing RSB and working out at the [facility] religiously. - Insomnia: He has some occasional middle insomnia and may try 3-6 mg of melatonin 1-2 hours before bed as a first step and if not helpful, would consider trazodone. He does not have RBD. He does have some hip pain that keeps him up and is taking a muscle relaxer, which seems unlikely to help orthopedic pain. He should try 2 extra strength tylenol instead. He should avoid sleep aides with diphenhydramine. - OAB: He is on a large dose of oxybutynin and has noted some changes in cognition (MOCA 22/30, MMSE 26/30) and some visual misperceptions. He should talk to his urologist about trying Myrbetriq, Gemtesa or Trospium given the possible cognitive side effects of other OAB drugs including his oxybutynin. - Constipation: He should either add docusate sodium to his Citrucel or consider switching over from Cit[employer] to Miralax. - Cognition: He may have MCI but is pretty sharp during interview today and we will test his B12. TSH was recdenttly checked. - DBS: We discussed briefly today that he may be a good candidate given the amount of PD meds he takes with some visual misperceptions, bothersome dyskinesia (likely causing a 50 lb weight loss), and possibly MCI but that he should not expect improvement in swallowing, voice, cognition or freezing of gait/balance. He sees Dr. Bharat Richardson for DBS eval in November and DBS would ultimately be up to her. PLAN (phrased as addressed to the patient): - Decrease carbi/levo. - Same amantadine, entacapone, pramipexole. - Could try melatonin for sleep. Could consider trazodone. - Start PT, rx given. If no improvement in FOG, consider meeting with Rhiannon Valderrama for a few visits. - Could consider addition of docusate or switching over to Miralax. - Start APDA [employer] channel exercises and PD voice project. - Switch oxybutynin to Myrbetriq, Gemtesa or Trospium with PMD/urologist. - Strict walker use. - Check B12. Assessment & Plan (10/14/2021 5:41 PM AUDIT SENIOR ASSOCIATE): ASSESSMENT - 71 y.o. man with Parkinson's disease for 8 years that began in 2014 at age 63 with rest tremor that was initially unilateral, slowing of gait, and joint stiffness. He had at least a subjective, and likely objective, response to levodopa. - Motor symptoms: he reported that his walking has slowed down a bit. He uses a walker when outside the house for longer distances. His motor UPDRS score today was 34 in Oct 2021, 22 in Oct 2020 on higher LDOPA dose with entacapone and pramipexole, 35 in Aug 2019 on LDOPA 1600 and PPX 3, 45 in Oct 2018 on LDOPA 1150 and PPX 3, 31 in Mar 2018 on LDOPA 1000 and ppx 3. I will try a small increase in the dose of carbidopa/levodopa. - Fluctuations: His dyskinesias may have responded to amantadine because he is no longer bothered by them, even though his said that they are still nearly constant. Will continue amantadine at the current dose. - Freezing of gait: he seems to have it, 1-2 times a day, on gait initiation, and I was able to trigger it with fast short steps. Not bothersome. PLAN (phrased as addressed to the patient): - Increase carbidopa/levodopa 25/250 to 3 tabs 4x/day - Look out for the following possible side effects, and call my office if any of these side effects appear: nausea, dizziness when standing, drowsiness, vivid dreams, nightmares, confusion, hallucinations (seeing things), paranoia, fainting (which can cause falls and head injury). - Continue entacapone 200 mg 4x/day with each dose of carbidopa/levodopa - Continue amantadine 100 mg 3x/day - Continue pramipexole 1 mg 3x/day - Continue gabapentin 400 mg at bedtime - Today I filled out a 1-page disability for tax purposes (copy scanned to chart) - Contact my office in 1 month to report whether you have bothersome dyskinesias This encounter's total ihnr-ft-nmml time was greater than 40 minutes. I spent more than 50% of this time in counseling and/or coordination of care as documented in the note. The patient visit started at 1613 and ended at 1658. Greater than 50% of the visit was spent on counseling and coordinating care. Patient was counseled on rationale for increasing the carbidopa/levodopa dose. Assessment & Plan (11/08/2020 1:19 PM AUDIT SENIOR ASSOCIATE): ASSESSMENT - 70 y.o. man with Parkinson's disease for 7 years that began in 2014 at age 63 with rest tremor that was initially unilateral, slowing of gait, and joint stiffness. He had at least a subjective, and likely objective, response to levodopa. - Motor symptoms: about the same overall. The exam was better today, with motor UPDRS score today 22 in Oct 2020 on higher LDOPA dose with entacapone and pramipexole, 35 in Aug 2019 on LDOPA 1600 and PPX 3, 45 in Oct 2018 on LDOPA 1150 and PPX 3, 31 in Mar 2018 on LDOPA 1000 and ppx 3. He is mildly bothered by near-constant dyskinesias. Will try amantadine sinle dose to address these dyskinesias. Will keep levodopa unchanged. - Continue [employer] program. PLAN (phrased as addressed to the patient): - Continue carbidopa/levodopa 25/250, 2.5 tabs 4x/day - Continue entacapone 200 mg 4x/day - Start amantadine 100 mg capsules, 1 caps every morning. - Contact my office if you develop any sleep disruption or nightmares. This encounter's total knoe-oi-sxrd time was 25 minutes. I spent more than 50% of this time in counseling and/or coordination of care as documented in the note. The patient visit started at 1302 and ended at 1333. Greater than 50% of the visit was spent on counseling and coordinating care. Patient was counseled on rationale for starting amantadine. Assessment & Plan (09/12/2019 6:19 PM AUDIT SENIOR ASSOCIATE): - 69 y.o. man with Parkinson's disease for 6 years that began in 2013 at age 63 with rest tremor that was initially unilateral, slowing of gait, and joint stiffness. He had at least a subjective, and likely objective, response to levodopa. - Motor symptoms: he has felt over all slower and does not recall noticing an improvement from the last increase in LDOPA dose 9 months ago. The exam was better today, with motor UPDRS score today 35 in Aug 2019 on LDOPA 1600 and PPX 3, 45 in Oct 2018 on LDOPA 1150 and PPX 3, 31 in Mar 2018 on LDOPA 1000 and ppx 3. Will increase levodopa. - Obesity: I explained that losing weight could make it easier for him to increase his exercise amount, which he wants to do, and would reduce mechanical stress on his knees, besides reducing his risk of heart attack and stroke. - Falls: no falls. PLAN (phrased as addressed to the patient): - Increase carbidopa/levodopa 25/100 to 4.5 tablet 4x/day for 2 weeks and then to 5 tabs 4x/day - Look out for the following possible side effects, and call my office if any of these side effects appear: nausea, dizziness when standing, drowsiness, vivid dreams, nightmares, confusion, hallucinations (seeing things), paranoia, fainting (which can cause falls and head injury). - Continue pramipexole 1 mg tabs, 1 tab 3x/day - Contact my office in 6 weeks if you are not walking more quickly. Assessment & Plan (11/23/2018 4:34 PM CDT): - 68 y.o. man with Parkinson's disease for more than 5 years (diagnosed in 2013) that began with rest tremor that was initially unilateral, slowing of gait, and joint stiffness. He had a subjective response to levodopa, and later felt a change after taking his first dose. - Motor symptoms: subjectively worse during period of stress currently. Exam also with more prominent motor sings, with motor UPDRS 45 today in Oct 2018 on LDOPA 1150 and PPX 3, 31 in Mar 2018 on LDOPA 1000 and ppx 3. Will increase levodopa. - Falls: no falls. PLAN (phrased as addressed to the patient): - Increase carbidopa/levodopa 25/100 to: 3.5-3.5-3.5-3 tabs for 2 weeks and then 4-4-4-3.5 tabs. - Look out for the following possible side effects, and call my office if any of these side effects appear: nausea, dizziness when standing, drowsiness, vivid dreams, nightmares, confusion, hallucinations (seeing things), paranoia, fainting (which can cause falls and head injury). - Continue pramipexole 1 mg tabs, 1 tab 3x/day - If you develop sleep attacks call my office. - Call my office in 6 weeks to report whether you are walking and moving faster. 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 Immunizations Immunization Administration Dates Next Due H1N1 Inj 05/28/2017 Influenza, Quad, Adjuvantate d, Intramuscular 06/22/2022 Influenza, Quadrivalent, Hig h Dose, Preservative Free, Intrr 05/28/2021,05/16/2020 Influenza, Quadrivalent, Rec ombinant, Egg Free, Preservative Free, Intramuscular 06/17/2016 Influenza, Quadrivalent, Spl it, Intramuscular 08/31/2015 Influenza, Trivalent, High D ose, Split, Preservative Free, Intramuscular 07/04/2019,06/17/2018,06/16/2018,06/11 Influenza, Trivalent, IM (MDV) 07/18/2015,2013,08/01/2013 Pneumococcal Conjugate PCV 13 06/11/2017, 017 Pneumococcal Polysaccharide PPV23 06/17/2018, ZOSTER LIVE 06/21/2014 ZOSTER Recombinant 12/13/2020,06/05/2020 Social History Tobacco Use Types Packs/Day Years Used Date Smoking Tobacco: Never Smokeless Tobacco: Never Tobacco Cessation:Counseling Given: Not Answered Sex and Gender Information Value Date Recorded Sex Assigned at Not on file Legal Sex Male 2:48 PM AUDIT SENIOR ASSOCIATE Gender Identity Not on file Sexual Orientation Not on file Last Filed Vital Signs Vital Sign Reading Time Taken Comments Blood Pressure 140/71 09/21/2024 2:31 PM AUDIT SENIOR ASSOCIATE Pulse 79 09/21/2024 2:31 PM AUDIT SENIOR ASSOCIATE Temperature 36.3 C (97.3 F) 04/15/2024 12:35 PM CDT Respiratory Rate - - Oxygen Saturation 98% 03/10/2024 10:50 AM CDT Inhaled Oxygen Concentration - - Weight 115.7 kg (255 lb) 09/21/2024 2:31 PM AUDIT SENIOR ASSOCIATE Height 167.6 cm (5' 6 ) 09/21/2024 2:31 PM AUDIT SENIOR ASSOCIATE Body Mass Index 41.16 09/21/2024 2:31 PM AUDIT SENIOR ASSOCIATE Plan of Treatment Not on file Insurance MEDICARE [employer] Care Teams Rim Roller Operator Relationship Specialty Start Date End Date Teresa Oshea NP [address] [place] [phone] PCP - General Nurse Practitioner 09/02/23
--- OUTSIDE RECORDS SUMMARY | 2024-11-13 22:22 | XMS_ITS | Patient Health Summary ---
Author Organization [facility] Address [address] [place] [address] Care Team Providers Care Basic Combatant Swimmer Name Role Phone Teresa Oshea Primary Care Provider Note from [facility] [place] [facility] [place],non-owned Affiliates and Associated Physician Practices is amultiple site organization consisting of ambulatory clinics and hospital sitesin [place], [place], [place] and [place]. This disclosure is being madepursuant to the Care Everywhere program and may not contain all information available regarding this patient. Last updated 18.[facility] Immunizations * FLU VACCINE QUAD IIV4 PF ID(Given 06/17/2016) Social History Tobacco Use Types Packs/Day Years Used Date Smoking Tobacco: Never Assessed Sex and Gender Information Value Date Recorded Sex Assigned at Not on file Gender Identity Not on file Sexual Orientation Not on file Care Teams Basic Combatant Swimmer Relationship Specialty Start Date End Date Teresa Oshea APRN-CNP [address] [place] [address] PCP - General Nurse Practitioner Adult Health 02/08/24
--- OUTSIDE RECORDS SUMMARY | 2024-11-13 22:22 | XMS_ITS | Clinical Summary ---
Author Organization [email or web address] Address [address] [place] [address] Care Team Providers Care Satellite Communications Engineer Name Role Phone DorieTeresa BLANCA-CANNING MACHINE OPERATOR Primary Care Provider Source Comments [email or web address],non-owned Affiliates and Associated Physician Practices is amultiple site organization consisting of ambulatory clinics and hospital sitesin [place], [place], [place] and [place]. This disclosure is being madepursuant to the Care Everywhere program and may not contain all information available regarding this patient. Last updated 18.[email or web address] Immunizations Name Administration Dates Next Due FLU VACCINE QUAD IIV4 PF ID 06/17/2016 Social History Tobacco Use Types Packs/Day Years Used Date Smoking Tobacco: Never Assessed Sex and Gender Information Value Date Recorded Sex Assigned at Not on file Gender Identity Not on file Sexual Orientation Not on file Plan of Treatment Health Maintenance Due Date Last Done Comments COLOGUARD (AGES 45-75) - COL ON CA SCREENING 1952 COLON MONITORING 1952 COLONOSCOPY - COLON CA SCREENING 1952 CT COLONOGRAPHY - COLON CA SCREENING 1952 Colorectal Cancer Screening 1952 FIT - COLON CA SCREENING 1952 FLEX SIG - COLON CA SCREENING 1952 LIPID TESTING 1952 HEPATITIS C SCREENING 03/27/1970 DTAP/TDAP/TD VACCINES (1 - Tdap) 1971 PNEUMOCOCCAL VACCINE 50+ (1 of 1 - PCV) 2002 ZOSTER VACCINE (1 of 2) 2002 COVID-19 VACCINE ( - 2023-2 5 season) 2024 INFLUENZA VACCINE (#1) 2024 06/17/2016 DEPRESSION SCREENING 08/31/2024 MEDICARE AWV CALENDAR YEAR 2024 Respiratory Syncytial Virus (RSV) Vaccine Pt: or over 60 yrs (1 - 1-dose 75+ series) 2027 HEPATITIS B VACCINE Aged Out No longe r eligible based on patient's age to complete this topic HIB VACCINE Aged Out No longer eligi ble based on patient's age to complete this topic HPV VACCINE Aged Out No longer eligi ble based on patient's age to complete this topic MENINGOCOCCAL (Group B) VACC INE SHARED DECISION-MAKING Aged Out No longer eligibl e based on patient's age to complete this topic MENINGOCOCCAL GROUPS A/C/Y/W VACCINE Aged Out No longer eligible b ased on patient's age to complete this topic Care Teams Satellite Communications Engineer Relationship Specialty Start Date End Date Teresa Oshea APRN-ARIANE [address] [place] [address] PCP - General Nurse Practitioner Adult Health 02/08/24
--- OUTSIDE RECORDS SUMMARY | 2024-11-13 22:22 | XMS_ITS | Clinical Summary ---
Author Organization [facility] Address [address] [place] [address] Care Team Providers Care Field Clinical Engineer Name Role Phone Teresa Oshea NP Primary Care Provider [phone] Allergies No known active allergies Medications tiZANidine [...] mg tablet Take 75 mg by mouth lead machinist before breakfast 5 Active traZODone (DESYREL) 50 [...] to further evaluate. Will request records from [place] for further review. If records do not [...] 04/14/2018 Assessment & Plan (09/30/2024 9:13 PM PSYCHOLOGIST CLINICAL): 74 y.o. man with Parkinson disease that [...] all times. He should also start APDA youtube channel [...] as addressed to the patient): Orders for [facility]: Taper and stop atomoxetine. Week [...] at all times. He should also start [employer] youtube channel exercises and may start PD [...] if interested in PT for FOG at [facility]. - Same trazodone for sleep. - Could try an increase in Strattera for FOG after we make other changes. - Same amantadine, pramipexole, same gabapentin. - Same Metamucil. - Start [employer] channel exercises and PD voice project. - [...] all times. He should also start APDA youtube channel [...] use. Assessment & Plan (09/03/2023 12:54 PM PSYCHOLOGIST CLINICAL): 73 y.o. man with Parkinson's disease for [...] for right now. He should also start [employer] channel exercises and may start PD Voice Project if interested. He is doing RSB and working out at the [employer] religiously. He has some occasional middle insomnia [...] dyshpagia. - Same Metamucil. - Start APDA [employer] channel exercises and PD voice project. - [...] encounter. Assessment & Plan (10/20/2022 2:03 PM PSYCHOLOGIST CLINICAL): ASSESSMENT - 72 y.o. man with Parkinson's [...] this helps dyskinesia. He should also start APDA youtube channel exercises and may start PD Voice Project if interested. He is doing RSB and working out at the [facility] religiously. - Insomnia: He has some [...] switching over to Miralax. - Start APDA youtube channel exercises and PD voice project. - Switch oxybutynin to Myrbetriq, Gemtesa or Trospium with PMD/urologist. - Strict walker use. - Check B12. Assessment & Plan (10/14/2021 5:41 PM PSYCHOLOGIST CLINICAL): ASSESSMENT - 71 y.o. man with Parkinson's disease for 8 years that began in 2013 at age [...] you have bothersome dyskinesias This encounter's total urzl-uv-jrsy time was greater than 40 minutes. I [...] dose. Assessment & Plan (11/08/2020 1:19 PM PSYCHOLOGIST CLINICAL): ASSESSMENT - 70 y.o. man with Parkinson's disease for 7 years that began in 2013 at age [...] sleep disruption or nightmares. This encounter's total qqqe-vh-rzsz time was 25 minutes. I spent more than 50% of this time in counseling and/or coordination of care as documented in the note. The patient visit started at 1302 and ended at 1333. Greater than 50% of the visit was spent on counseling and coordinating care. Patient was counseled on rationale for starting amantadine. Assessment & Plan (09/12/2019 6:19 PM PSYCHOLOGIST CLINICAL): - 69 y.o. 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 Movement Disorders [address] [place] [id number] Vanita Knott, ELIDIA Levodopa-induced dyskinesia (Primary Dx); Parkinson's disease, unspecified whether dyskinesia present, unspecified whether manifestations fluctuate (HCC); Primary insomnia; Primary freezing of gait 09/05/[address] [facility] Scheduling [address] [place] [address] Vanita Knott NP Scheduling Appointments from Last 3 Months Immunizations Immunization Administration Dates Next Due H1N1 [...] 06/17/2018, ZOSTER LIVE 06/21/2014 ZOSTER Recombinant 12/13/2020,06/05/2020 Surgical History Surgery Date Site/Laterality Comments [place] BIOPSY TESTIS INCISIONAL SEPARATE PROCEDURE 08/31/2013 - 08/30/2014 Biopsy Testis Incisional - (Added by TW Conv) ARM SURGERY 08/31/1999 - 08/30/2000 Right muscle tear HERNIA REPAIR 08/31/2013 - 08/30/2014 Medical History Medical History Date Comments Personal history of other di seases of the respiratory system History of asthma - (Added b y TW Conv) Personal history of other di seases of the digestive system History of gastroesophageal reflux (GERD) - (Added by TW Conv) Parkinson's disease (HCC) 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, symptomatic - (Added by TW Conv) Asthma 2009 GERD (gastroesophageal reflux disease) 2009 Sleep apnea 2009 Ear problems Family History Medical History Relation Name Comments Cancer Brother Don Family history of malignant neoplasm - (Added by TW Conv) Parkinsonism Brother Don Diabetes Father Franky Relation Name Status Comments Brother Don Father Franky Social History Tobacco Use Types Packs/Day Years Used Date Smoking Tobacco: Never Smokeless Tobacco: Never Tobacco Cessation:Counseling Given: Not Answered Sex and Gender Information Value Date Recorded Sex Assigned at Not on file Legal Sex Male 2:48 PM PSYCHOLOGIST CLINICAL Gender Identity Not on file Sexual Orientation Not on file Obstetrics History Last Filed Vital Signs Vital Sign Reading Time Taken Comments Blood Pressure 140/71 09/21/2024 2:31 PM PSYCHOLOGIST CLINICAL Pulse 79 09/21/2024 2:31 PM PSYCHOLOGIST CLINICAL Temperature 36.3 C (97.3 F) 04/15/2024 12:35 PM CDT Respiratory Rate - - Oxygen Saturation 98% 03/10/2024 10:50 AM CDT Inhaled Oxygen Concentration - - Weight 115.7 kg (255 lb) 09/21/2024 2:31 PM PSYCHOLOGIST CLINICAL Height 167.6 cm (5' 6 ) 09/21/2024 2:31 PM PSYCHOLOGIST CLINICAL Body Mass Index 41.16 09/21/2024 2:31 PM PSYCHOLOGIST CLINICAL Plan of Treatment Health Maintenance Due Date Last Done Comments Colon Cancer Screening-Colonoscopy 1952 Fall Risk Assessment 1952 Hepatitis C Screening 1952 DTaP/Tdap/Td Vaccine (1 - Tdap) 1963 Hepatitis B Screening 1970 Well Visit 65+ 2017 Covid-19 Vaccine (2023-2 5 season) 2024 06/22/2022, 05/28/2021, 11/22/2020, Additional history exists Influenza Vaccine (#1) 2024 , 05/28/2021, 05/16/2020, Additional history exists Depression Screening 04/15/2025 04/15/2024 Pneumococcal vaccine 65+ Completed 018, 06/16/2018, 06/11/2017, Additional history exists Zoster Vaccine Completed 12/13/2020, 01/2020, 06/21/2014 Insurance [employer] [place] [address] [place] [address] MEDICARE [employer] MEDICARE Care Teams Field Clinical Engineer Relationship Specialty Start Date End Date Teresa Oshea NP [address] [place], [place] [phone] PCP - General Nurse Practitioner 09/02/23
--- OUTSIDE RECORDS SUMMARY | 2024-11-13 22:22 | XMS_ITS | Referral Summary ---
Author Organization [facility] Address [address] [place] [address] Care Team Providers Care Pharmacy Technology Instructor Name Role Phone Teresa Oshea Primary Care Provider Source Comments [facility],non-owned Affiliates and Associated Physician Practices is amultiple site organization consisting of ambulatory clinics and hospital sitesin [place], [place], [place]. This disclosure is being madepursuant to the Care Everywhere program and may not contain all information available regarding this patient. Last updated 18.[facility] [employer] Immunizations Name Administration Dates Next Due FLU VACCINE QUAD IIV4 PF ID 06/17/2016 Social History Tobacco Use Types Packs/Day Years Used Date Smoking Tobacco: Never Assessed Sex and Gender Information Value Date Recorded Sex Assigned at Not on file Gender Identity Not on file Sexual Orientation Not on file Plan of Treatment Not on file Care Teams Pharmacy Technology Instructor Relationship Specialty Start Date End Date Teresa Oshea APRN-CNP [address] [place] [id number] PCP - General Nurse Practitioner Adult Health 02/08/24
[2024-11-13 22:31] LABS: Influenza A QL RT-PCR Negative (Negative); Influenza B QL RT-PCR Negative (Negative); RSV RNA, RT-PCR Negative (Negative); SARS-CoV-2 RNA PCR Negative (Negative)
--- NOTE | 2024-11-13 22:41 | ED.SOB ---
HPI - SOB/Dyspnea General Chief Complaint: Shortness of Breath/Dyspnea Stated Complaint: shortness of breath Time Seen by Provider: 11/13/24 22:12 Source: patient and family () History of Present Illness HPI Narrative: Patient presents from [facility] with report of shortness of breath. There has been debate several years ago on whether he had asthma as he had been given this diagnosis but then was later felt to have potential pulmonary embolism. Does not regularly use an inhaler. History of a DVT in his left leg. He had been on Eliquis for 1/2-2 months but then states that he was told by his PA to discontinue this due to being asymptomatic. Nonsmoker. History of KYLE. Denies chest pain. History of Parkinsons and was concerned as she felt that he had been choking while eating recently. A&O x4. Patient states he feels like he is unable to take and hold a deep breath. He has had a dry cough. No hemoptysis. No fevers or chills. He has not been hypoxic but EMS placed him on 2 L nasal cannula for comfort initially. He has noted bilateral lower extremity edema to the knees. He denies any scrotal edema, anasarca. Patient sees LEAH Teresa Mariee (under Dr Villanueva). Related Data Home Medications ?Medication ?Instructions ?Recorded ?Confirmed ?Last Taken ?Type pramipexole 1 mg tablet (Mirapex) 1 mg PO TID 09/29/22 07/03/24 07/03/24 09:00 History vibegron 75 mg tablet (Gemtesa) 75 mg PO DAILY 06/25/24 07/03/24 Unknown History Allergies Allergy/AdvReac Type Severity Reaction Status Date / Time No Known Allergies Allergy Verified 07/21/24 11:17 [facility] Past Medical History Medical History (Updated 11/15/24 @ 06:00 by Landy Mehta MD) Left leg DVT not currently on anticoagulation Unspecified abnormalities of gait and mobility Other malaise COVID-19 Pulmonary embolism Elliquis discontinued after 6-8 weeks Lymphedema KYLE on CPAP Extrinsic asthma, unspecified Asthma Esophageal reflux Non-recurrent bilateral inguinal hernia without obstruction or gangrene Parkinson disease Surgical History Surgical History H/O hernia repair History of ear surgery (~11/2017) Implant - Lt Ear History of surgery on arm (~1998) Muscle Tear - Rt History of removal of cyst (~07/29/17) Rt Testicle History of tooth extraction Family History Family History Father Diabetes mellitus Mother Hypertension Family history of kidney disease Family history of renal failure Sibling Asthma Family history of malignant neoplasm Family history of seizure disorder Family history of sudden , Onset Age: 57 Family history of congestive heart failure, Onset Age: 57 Protein S deficiency Social History Social History Social History: Retired. He is . His has dementia and was just placed into memory care. 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 [place] Smoking status: Never smoker Second hand tobacco smoke exposure: No Alcohol intake: former Substance use: never Substance use type: does not use Do You Feel Safe in your Home?: Yes Lack of Transportation: No Lack of Food: Never True Current Housing: I Have Housing Concerned About Future Housing: No Difficulty Paying Gas/Electric Bills: No Difficulty Paying for Meds: No Currently Unemployed: No Education: Associate Degree Difficulty w/ Childcare or Family Care: No Living arrangements: assisted living Additional living arrangements comments: [facility] Occupation/Education: retired Gender identity (if verbalized by the patient): Male Sexual Orientation (if Verbalized by the Patient): Straight or Heterosexual Spiritual care concerns: No Agree to blood products: Yes Exam Narrative: GENERAL: Well-appearing, well-nourished, and in no acute distress. Parkinsonian facies. HEAD: Normocephalic, atraumatic. EYES: Non injected, non icteric ENT: Nares clear, no rhinorrhea or epistaxis. NECK: Supple. CHEST: Speaking in full sentences. No respiratory distress. Diminished at the bases bilaterally although right greater than left. No appreciable crackles or wheezes. HEART: Regular rate and rhythm. . ABDOMEN: Soft, nondistended. EXTREMITIES: Normal range of motion. 3+ bilateral lower extremity edema to the knee. Not particularly edematous in the thighs. SKIN: Warm, dry, no rash. NEURO: No focal deficits. Alert and oriented x3. PSYCH: Normal mood but flat affect. Course Vital Signs Vital signs: Vital Signs Temperature 98.5 F 11/13/24 21:20 Pulse Rate 74 11/13/24 21:20 Respiratory Rate 18 11/13/24 21:20 Blood Pressure 186/69 H 11/13/24 21:20 Pulse Oximetry 97 11/13/24 21:20 Oxygen Delivery Room Air 11/13/24 21:20 Temperature 98.5 F 11/13/24 21:20 Pulse Rate 66 11/14/24 05:00 Respiratory Rate 17 11/14/24 05:00 Blood Pressure 190/62 H 11/14/24 01:01 Pulse Oximetry 97 11/14/24 05:00 Oxygen Delivery Room Air 11/13/24 21:29 MDM - SOB/Dyspnea MDM Narrative Medical decision making narrative: Patient presents with report of shortness of breath. He states he feels like he is unable to take and told to deep breath. Denies chest pain. In the emergency department he is afebrile vital signs notable for hypertension. Medication list from assisted living facility is reviewed and confirms he is not currently on Eliquis. He does state that he had been diagnosed with a DVT in his left leg possibly a pulmonary embolism although the details BUN this are unclear. He states his physician studio assistant Teresa mariee took him off Eliquis after he was on it for 6-8 weeks due to him being asymptomatic. Questionable diagnosis of asthma as well not using an inhaler. States that he was initially given the diagnosis of asthma after an ED visit but then later it was felt he had the PE. Normocytic anemia, stable from previous. Troponin normal. BNP elevated; technically below the threshold that would be expected for acute heart failure at his age although approaching this level. Incidental finding under left hepatic lobe seen on CT chest as below so proceeded with a CT abdomen pelvis imaging. Patient reassessed at approximately 2:30 a.m.. He states he feels still short of breath a little bit although it is greatly improving although notably he has not yet received the breathing treatment had been ordered but respiratory therapy does come into administer this shortly thereafter. He remains with appropriate O2 saturation. On auscultation at this time, I did have him force a cough and can appreciate slight expiratory wheeze during this maneuver alone. For this reason, will proceed with discharging with albuterol inhaler. Reassessed and he states he is feeling much better. Still no appreciable wheezes on auscultation at baseline. Will defer administering steroid or antibiotic. Differential Diagnosis Differential diagnosis: Likely congestive heart failure, community acquired pneumonia (versus aspiration pneumonia/pneumonitis), asthma with exacerbation, pulmonary embolism and other (Acute viral syndrome (COVID, influenza, RSV); bronchitis; KYLE) Lab Data Attestation: I reviewed the patient's lab results. 11/13/24 21:44 11/13/24 21:45 Labs: Lab Results 11/13/24 11/13/24 Range/Units 21:44 21:45 WBC 9.7 (4.5-10.0) K/mm3 RBC 4.73 (4.6-6.20) M/mm3 Hgb 13.5 L (14.0-18.0) g/dL Hct 41.7 L (42.0-52.0) % MCV 88.2 (80-100) fl MCH 28.5 (26-34) pg MCHC 32.4 (32-36) g/dl RDW 12.9 (11.5-14.5) % Plt Count 157 (150-375) k/mm3 MPV 11.6 H (7.4-10.4) fl Immature Gran % (Auto) 0.4 (0-0.5) % Neut % (Auto) 68.3 (45.5-73.1) % Lymph % (Auto) 18.8 (18.3-44.2) % Saline % (Auto) 8.1 (2.6-8.5) % Eos % (Auto) 3.8 (0-4.4) % Baso % (Auto) 0.6 (0.2-1.2) % Lymph # (Auto) 1.81 (0.9-3.2) K/mm3 Saline # (Auto) 0.8 H (0.1-0.6) K/mm3 Eos # (Auto) 0.4 H (0-0.3) K/mm3 Baso # (Auto) 0.1 (0.0-0.1) K/mm3 Abs Immat Gran (auto) 0.04 H (0.00-0.031) K/mm3 Absolute Neuts (auto) 6.6 (1.3-6.7) K/mm3 Absolute Nucleated RBC 0.000 (0.0-0.012) K/mm3 Nucleated RBC % 0.0 (0.0-0.2) % Sodium 141 (137-145) mmol/L Potassium 3.5 (3.4-5.0) mmol/L Chloride 107 (98-107) mmol/L Carbon Dioxide 25 (22-30) mmol/L Anion Gap 9 (4-12) mmol/L BUN 18 (9-20) mg/dL Creatinine 0.78 (0.7-1.3) mg/dL Estim Creat Clear Calc 100 ml/min Estimated GFR > 60 (59 - ) Glucose 116 H (65-110) mg/dL Calcium 9.0 (8.4-10.2) mg/dL Total Bilirubin 0.5 (0.2-1.3) mg/dL AST 18 (17-59) U/L ALT 8 (6-50) U/L Alkaline Phosphatase 73 (38-126) U/L Troponin I < 0.012 (0.000-0.034) ng/mL NT-Pro-B Natriuret Pep 821 H (19.9-100) pg/mL Total Protein 7.0 (6.3-8.2) g/dL Albumin 4.2 (3.5-5.1) g/dL Urine Color Yellow (Yellow) Urine Appearance Clear (Clear) Urine pH 5.0 (5.0-9.0) Ur Specific [place] 1.025 (1.001-1.035) Urine Protein Negative (Negative) mg/dL Urine Glucose (UA) Negative (Negative) mg/dL Urine Ketones Trace H (Negative) mg/dL Ur Blood (Man) Negative (Negative) Urine Nitrate Negative (Negative) Urine Bilirubin Negative (Negative) Urine Urobilinogen 1.0 (<2.0) mg/dL Leukocyte Esterase Rfl Negative (Negative) GUILLE/UL Influenza A (RT-PCR) Negative (Negative) Influenza B (RT-PCR) Negative (Negative) RSV (RT-PCR) Negative (Negative) SARS-CoV-2 RNA (RT-PCR) Negative (Negative) Imaging Data Attestation: I personally reviewed and interpreted this imaging study as follows: My impression: Borderline cardiomegaly on my independent interpretation of chest x-ray. Radiologist's impression: CTA Chest STat Rad: Impression: No acute pulmonary embolism. Suspected mass along the undersurface of the left hepatic lobe. Recommend CT abdomen and pelvis. CT Abd/Pelvis w/ contrast Stat Rad: Stable CT appearance of the abdomen and pelvis. No mass lesion identified. ECG Data EKG #1: Attestation: I personally reviewed and interpreted this ECG as follows: ECG completion date: 11/13/24 ECG completion time: 21:25 Interpretation: Normal sinus rhythm at a rate of 74 beats per minute. CO interval 162. QRS 109. QT/QTC 398/425. T-wave flattening in lead 3 but upright in normal in contiguous inferior leads 2 and AVF. No other T-wave inversions. Discharge Plan Discharge Clinical Impression: Shortness of breath, Normocytic anemia Patient Disposition: NH Assisted/Asst Living Condition: Stable Instructions: Antibiotic Form, Anemia (ED), Shortness of Breath (ED) Additional Instructions: No evidence of pneumonia/aspiration pneumonia or blood clot in your lungs (pulmonary embolism) on CT scan. You are being prescribed an albuterol inhaler given there was faint wheeze upon forced cough maneuver. No mass was ultimately identified on the dedicated CT scan of the abdomen. Follow-up with your primary care provider Teresa Mariee. Return to the emergency department with any new or worsening symptoms. Continue taking all of your medications as prescribed. Patient Language: Greenlandic Prescriptions: New albuterol sulfate 90 mcg/actuation HFA aerosol inhaler 1 inh inhalation QID PRN (Reason: shortness of breath or wheezing) Qty: 6.7 0RF No Action pramipexole [Mirapex] 1 mg tablet 1 mg PO TID Gemtesa 75 mg Tablet 75 mg PO DAILY polyethylene glycol 3350 [Miralax] 17 gram Powder In Packet 17 g PO QAM Qty: 30 0RF sennosides-docusate sodium 8.6-50 mg Tablet 2 tab PO BID Qty: 60 0RF guaifenesin [Mucus Relief ER] 600 mg Tablet Extended Release 12hr 600 mg PO Q12HR Qty: 60 0RF gabapentin 600 mg tablet 600 mg PO QHS Qty: 30 0RF tizanidine 4 mg tablet 4 mg PO BID Qty: 180 1RF carbidopa-levodopa 25-250 mg tablet 2.5 tablet PO QID Qty: 120 0RF Patient Comments: pt takes at 0700, 1200, 1700, and 2200 amantadine HCl 100 mg capsule 100 mg PO TID Qty: 90 0RF trazodone 100 mg tablet 100 mg PO QHS Qty: 30 0RF fluticasone propionate [Flonase Allergy Relief] 50 mcg/actuation spray,suspension 2 spray intranasal PRN PRN (Reason: allergies) Qty: 1 0RF Rx Instructions: administer into each nostril atomoxetine 25 mg capsule 25 mg PO BID Qty: 60 0RF Follow-up/Referrals: Teresa Mariee APRN [Primary Care Provider] - Stand Alone Forms: Custodial Discharge Time of Disposition: 04:57
[2024-11-13 23:20] LABS: NT Pro B Type Natriuretic Pept 821 pg/mL (19.9-100); Troponin I < 0.012 ng/mL (0.000-0.034)
[2024-11-13 23:31] VITALS: BP 171/63; PULSE 68; RESP 16; O2SAT 98
[2024-11-14] VITALS (13 sets, daily range): BP systolic 164–190; BP diastolic 58–62; PULSE 63–70; RESP 15–23; O2SAT 94–100
== END 2024-11-14 05:36 ==
PROVIDERS: Emergency Provider Student in an Organized Health Care Education/Training Program; PCP Nurse Practitioner Family
DX: R06.02 Shortness of breath (principal); D64.9 Anemia, unspecified; G20.A1 Parkinson's disease without dyskinesia, without mention of fluctuations; Z86.718 Personal history of other venous thrombosis and embolism; Z86.711 Personal history of pulmonary embolism; G47.33 Obstructive sleep apnea (adult) (pediatric); Z99.89 Dependence on other enabling machines and devices; J45.909 Unspecified asthma, uncomplicated; Z20.822 Contact with and (suspected) exposure to COVID-19
CPT/HCPCS: 36415; 71045; 71275; 74177; 80053; 81003; 83880; 84484; 85025; 87637; 93005; 94640; 99284; Q9967

== ENCOUNTER 2025-03-15 08:59 | Outpatient (CLI) | payer MEDICARE, SELFPAY ==
--- NOTE | 2025-03-15 09:13 | ECHO_ITS ---
Patient Info Name: Ori Bernardo Age: 74 years : 1950 Gender: Male Ht: 66 in Wt: 250 lbs BSA: 2.35 m2 HR: 72 bpm BP: 141 / 59 mmHg Technical Quality: Fair Exam Date: 03/15/2025 9:20 AM Patient Status: O Admit Date: 03/15/2025 Exam Type: CA echo doppler color flow Complete two-dimensional, color flow and Doppler transthoracic echocardiogram is performed. Pumping Station Engineer: Destiny Juan Attending Provider: Teresa Oshea Summary 1. Complete two-dimensional, color flow and Doppler transthoracic echocardiogram is performed. 2. Left ventricular chamber dimension is normal. 3. Left ventricular systolic function is normal, estimated at 60-65. 4. There is mild concentric increased left ventricular wall thickness. 5. The left ventricular diastolic function is grade I diastolic dysfunction. 6. E/e' 8 is minimally elevated. 7. Left atrial chamber dimension is mildly enlarged. 8. There is mild aortic valve sclerosis. 9. There is trace aortic valve regurgitation. Left Ventricle E/e' 8 is minimally elevated. Left ventricular chamber dimension is normal. Left ventricular systolic function is normal, estimated at 60-65. There is mild concentric increased left ventricular wall thickness. The left ventricular diastolic function is grade I diastolic dysfunction. Right Ventricle Right ventricular chamber dimension is normal. Right ventricular systolic function is normal and with normal TAPSE 2.7 cm. Left Atria Left atrial chamber dimension is mildly enlarged. Right Atria Right atrial chamber dimension is normal. Aortic Valve The aortic valve is trileaflet. There is mild aortic valve sclerosis. There is no aortic valve stenosis. There is trace aortic valve regurgitation. Pulmonic Valve There is no pulmonic regurgitation. Mitral Valve There is no mitral valve stenosis. There is no mitral valve regurgitation. Tricuspid Valve There is no tricuspid valve regurgitation. Pericardium/Pleural There is no pericardial effusion. Inferior Vena Cava Normal inferior vena cava with >50% collapse upon inspiration consistent with normal right atrial pressure, 5 mmHg. Aorta The aortic root size at the sinus of Valsalva is normal. Left Ventricular Outflow Tract Name Value Normal LVOT 2D LVOT Diameter 2.0 cm LVOT Doppler LVOT Peak Velocity 154 cm/s LVOT Peak Gradient 9 mmHg LVOT Mean Gradient 5 mmHg LVOT VTI 38 cm LVOT VTI/AV VTI Ratio 0.9 LVOT Stroke Volume 119 ml LVOT CO 8.2 l/min LVOT CI 3.5 l/min/m2 Pulmonic Valve Name Value Normal RVOT Doppler RVOT Peak Velocity 86 cm/s RVOT Peak Gradient 3 mmHg PV Doppler PV Peak Velocity 99 cm/s PV Peak Gradient 4 mmHg Mitral Valve Name Value Normal MV Diastolic Function MV E Peak Velocity 64 cm/s MV A Peak Velocity 67 cm/s MV E/A 1.0 MV Decel Time (PW) 248 ms MV Annular TDI MV E/e' (Septal) 9.8 MV E/e' (Lateral) 7.0 MV E/e' (Average) 8.4 Tricuspid Valve Name Value Normal Estimated PAP/RSVP RA Pressure 5 mmHg <=5 Aortic Valve Name Value Normal AV Doppler AV Peak Velocity 186 cm/s AV Peak Gradient 14 mmHg AV Mean Gradient 8 mmHg AV VTI 41 cm AV Area (Cont Eq VTI) 2.9 cm2 >=3.0 AV Area (Cont Eq Jewel) 2.6 cm2 AV DI (Jewel) 0.82 AV Regurgitation 2D LVOT Area 3.1 cm2 Ventricles Name Value Normal LV Dimensions 2D/MM IVS Diastolic Thickness (2D) 1.3 cm 0.6-1.0 LVID Diastole (2D) 4.3 cm 4.2-5.8 LVIW Diastolic Thickness (2D) 1.4 cm 0.6-1.0 LVID Systole (2D) 2.8 cm 2.5-4.0 LVOT Diameter 2.0 cm LV Mass (2D Cubed) 223.84 g 88.00-224.00 LV Mass Index (2D Cubed) 95 g/m2 49-115 Relative Wall Thickness (2D) 0.66 <=0.42 LV Fractional Shortening/Ejection Fraction 2D/MM LV Fractional Shortening (2D) 35 % 25-43 LV EF (2D Teichholz) 65 % LV Diastolic Volume (4C MOD) 179 ml LV EF (4C MOD) 60 % LV Diastolic Volume (2C MOD) 127 ml LV EF (2C MOD) 53 % LV Diastolic Volume (BP MOD) 149 ml 62-150 LV Diastolic Volume Index (BP MOD) 63 ml/m2 34-74 LV Systolic Volume (BP MOD) 67 ml 21-61 LV Systolic Volume Index (BP MOD) 28 ml/m2 11-31 LV EF (BP MOD) 55 % 52-72 LV Diastolic Length (4C) 10.3 cm LV Systolic Length (4C) 9.2 cm LV Stroke Volume (4C MOD) 107 ml Atria Name Value Normal LA Dimensions LA Volume (4C A-L) 56 ml LA Volume (BP A-L) 73 ml RA Dimensions RA Systolic [place] Length (4C) 5.7 cm 2.1-2.7 RA Area (4C) 19.3 cm2 <=18.0 Report Signatures
== END 2025-03-15 09:00 | disposition home or self-care (01) ==
LOC: ANHCARD 09:00
PROVIDERS: PCP Nurse Practitioner Family; Visit Provider Nurse Practitioner Family
DX: R93.1 Abnormal findings on diagnostic imaging of heart and coronary circulation (principal); R01.1 Cardiac murmur, unspecified
CPT/HCPCS: 93306

== ENCOUNTER 2025-08-07 16:14 | Inpatient (IN) | payer MEDICARE, SELFPAY ==
--- NOTE | ~2025-08-07 | CT_ITS ---
EXAMINATION: CT brain wo con DATE: 08/09/2025 20:22 INDICATION: Altered mental status. TECHNIQUE: Computed tomography (CT) of the head was performed without intravenous contrast. The mA was adjusted according to patient size. Iterative reconstruction technique was employed. The dose-length product was 681.00 mGy-cm. COMPARISON: CT head dated 08/07/2025 FINDINGS: No acute intracranial bleed or extra-axial collections. No ventriculomegaly or midline shift. No acute bone changes. IMPRESSION: 1. No acute findings in this limited noncontrast CT head. Reviewed, dictated and finalized at location T. KER OPERATOR
--- NOTE | ~2025-08-07 | XR_ITS ---
EXAMINATION: XR chest 1V portable DATE: 08/10/2025 05:54 INDICATION: Intubation TECHNIQUE: A single frontal view of the chest was obtained. COMPARISON: August 09 chest x-ray FINDINGS: Endotracheal tube tip appears to be pulled back approximately 3.8 cm above the allie. Gastric catheter not clearly changed. Heart and great vessels stable with prominent vascular shadows. The lungs are hypoinflated but no prince pulmonary edema or large effusion. Probable mild bibasilar atelectatic changes or small infiltrates. IMPRESSION: 1. Repositioned endotracheal tube as above. Mild bibasilar atelectatic changes and/or small infiltrates. 2. Mild vascular congestion. Reviewed, dictated and finalized at location A. ICAL HAEMATOLOGIST
--- NOTE | ~2025-08-07 | XR_ITS ---
EXAMINATION: XR chest 1V portable COMPARISON: No comparisons available. HISTORY: temp 101 FINDINGS: Mild pulmonary venous congestion.: Mild CHF No pneumothorax. Mild cardiomegaly. Mediastinal and hilar contours are within normal limits. Bony thorax no acute abnormality. Miscellaneous: None Impression: No acute cardiopulmonary abnormality. Reviewed, dictated and finalized at location P. ODITIES MANAGER Impression: No acute cardiopulmonary abnormality.
--- NOTE | ~2025-08-07 | XR_ITS ---
Examination: XR chest 1V portable Clinical History: Post extubation and shortness of breath Comparison: 1 day prior Technique: Portable AP Findings: NG tube. Cardiomegaly. Persistent elevation right hemidiaphragm with associated basilar atelectasis. Pleural effusion not excluded. Left basilar opacity persists. No acute bony abnormality. IMPRESSION: 1. No significant change. 2. Persistent left basilar atelectasis and/or airspace disease. Reviewed, dictated and finalized at location R. DESIGN DRAFTER
--- NOTE | ~2025-08-07 | CT_ITS ---
EXAMINATION: CT brain wo con DATE: 08/07/2025 20:27 INDICATION: Trauma. TECHNIQUE: Computed tomography (CT) of the head was performed without intravenous contrast. The mA was adjusted according to patient size. Iterative reconstruction technique was employed. The dose-length product was 681.00 mGy-cm. COMPARISON: CT head dated 06/25/2024. FINDINGS: No acute intracranial bleed. No extra-axial collections. Mild chronic small vessel ischemia of ventriculomegaly. No evidence of acute cranial fractures. IMPRESSION: 1. No acute findings in the limited noncontrast CT head. Reviewed, dictated and finalized at location T. OR RANCH ANIMAL CARETAKER
--- NOTE | ~2025-08-07 | US_ITS ---
EXAMINATION: US venous doppler LE RT DATE: 08/07/2025 20:48 INDICATION: Right lower extremity pain and swelling. TECHNIQUE: Grayscale ultrasound images without and with compression and Doppler ultrasound images of the right lower extremity veins were obtained. COMPARISON: CT angiogram chest 11/14/2024 FINDINGS: The visualized portions of right common femoral vein, profunda (deep) femoral vein, femoral vein, popliteal vein, peroneal veins, posterior tibial veins, and greater saphenous vein outflow are patent. IMPRESSION: 1. No deep venous thrombosis in the right lower extremity veins.. Reviewed, dictated and finalized at location T. GER CHINESE
--- NOTE | ~2025-08-07 | XR_ITS ---
EXAMINATION: XR chest 2V, 08/07/2025 17:44 ANATOMICAL EMBALMER HISTORY: cough, confusion COMPARISON: No comparisons available. Technique: 2 views obtained. Findings: Small basilar infiltrates. Mild pulmonary venous congestion. No pneumothorax. Mild cardiomegaly. Mediastinal and hilar contours are within normal limits. Bony thorax no acute abnormality. Impression: Mild CHF. Superimposed early pneumonia suspected Reviewed, dictated and finalized at location P. OMICAL EMBALMER Impression: Mild CHF. Superimposed early pneumonia suspected
--- NOTE | ~2025-08-07 | XR_ITS ---
EXAMINATION: XR abdomen gastric tube insert, 08/13/2025 15:50 ABA THERAPIST HISTORY: NG tube placement COMPARISON: No comparisons available. Technique: 3 view. Findings: Bowel gas pattern unremarkable. No obstruction. No free air. No abnormal calcifications No acute osseous abnormality. Nasogastric tube appears coiled within the body of the stomach Impression: 1. No acute abnormality. Reviewed, dictated and finalized at location P. THERAPIST Impression: 1. No acute abnormality.
--- NOTE | ~2025-08-07 | XR_ITS ---
EXAM/PROCEDURE: XR barium swallow modified HISTORY: Aspiration, speech therapy recommendation COMPARISON: None available. TECHNIQUE: Modified barium swallow Fluoroscopy time: 3.5 minutes DAP: 2.656 Benson per square centimeter Number of images: 1 IMPRESSION: Aspiration was observed. See speech therapist's note for complete evaluation. Reviewed, dictated and finalized at location A. RVISOR ELECTRONICS ASSEMBLY
--- NOTE | ~2025-08-07 | XR_ITS ---
EXAMINATION: XR knee RT 3V DATE: 08/07/2025 18:41 INDICATION: Trauma due to fall. TECHNIQUE: 3 views of the right were obtained. COMPARISON: None. FINDINGS: Osteopenic bones. No acute fracture. Severe degenerative changes of patellofemoral joint with small effusion. IMPRESSION: 1. No acute bony lesions. 2 osteopenic bones. Severe arthritis predominantly of patellofemoral joint. Please correlate with DEXA densitometry. 3 if symptoms are localized and persistent, MRI is indicated. Reviewed, dictated and finalized at location T. GRINDER OPERATOR IMPRESSION: 1. No acute bony lesions. 2 osteopenic bones. Severe arthritis predominantly of patellofemoral joint. Please correlate with DEXA densitometry. 3 if symptoms a re localized and persistent, MRI is indicated.
--- NOTE | ~2025-08-07 | XR_ITS ---
EXAMINATION: Portable AP chest: DATE: 08/09/2025 at 6:09 PM INDICATION: Endotracheal tube placement. TECHNIQUE: Portable AP chest were obtained. COMPARISON: Prior study on 08/08/2025 FINDINGS: Heart size is unchanged. Atherosclerotic aorta. Platelike atelectasis of right lung base. Tip of the nasogastric tube is noted in the gastric fundus. Endotracheal T1 is noted in place with the tip approximately 1.5 cm proximal to the allie. The endotracheal tube tip can be repositioned more proximally by about 3 cm for optimal positioning. IMPRESSION: 1. . Of the nasogastric tube in the stomach. 2. Tip of the endotracheal tube in the distal trachea 1.5 cm above the allie. The ET tube may be repositioned more proximally for ideal positioning by 3 cm. Reviewed, dictated and finalized at location T. ISTICIAN APPLIED
--- NOTE | ~2025-08-07 | CT_ITS ---
EXAMINATION: CT chest, abdomen and pelvis without contrast: DATE: 08/09/2025 INDICATION: Fever. TECHNIQUE: CT was performed without contrast through the chest abdomen and pelvis. COMPARISON: Portable chest x-ray dated 08/09/2025. CT abdomen pelvis dated 11/14/2024. FINDINGS: The endotracheal tube tip is noted in the distal trachea, just above the allie as mentioned on the portable chest x-ray. Minimal platelike atelectasis of lung bases. Emphysematous lungs. No pleural or pericardial effusion. Below the diaphragm, the nasogastric tube tip is noted within the stomach. No definite focal lesions in the liver. Gallbladder shows mild distention without edema calculi. Pancreas shows no acute findings. Ectopic position of left kidney in the pelvis. No obstructive changes of the kidneys. No bowel obstruction. Left inguinal hernia containing omental fat. No free fluid or free air in the peritoneal cavity. Severe degenerative disc disease in the lumbar spine. IMPRESSION: 1. Limited noncontrast examination is not optimal to evaluate solid viscera, vascular structures and neoplasms. 2. No acute pulmonary findings. Minimal platelike atelectasis of lung bases. 3. Tip of the endotracheal tube is low in position, just above the allie. Please reposition this ET tube more proximally by approximately 2.5 to 3 cm. 4. No acute findings in the abdomen and pelvis. Other findings as mentioned above. Reviewed, dictated and finalized at location T. DENTIAL MENTAL HEALTH WORKER IMPRESSION: 1. Limited noncontrast examination is not optimal to evaluate solid viscera, va scular structures and neoplasms. 2. No acute pulmonary findings. Minimal platelike atelectasis of lung bases. 3. Tip of the endotracheal tube is low in position, just above the allie. Plea se reposition this ET tube more proximally by approximately 2.5 to 3 cm. 4. No acute findings in the abdomen and pelvis. Other findings as mentioned abo ve.
--- NOTE | ~2025-08-07 | XR_ITS ---
Examination: XR chest 1V portable Clinical History: intubated Comparison: 1 day prior Technique: Portable AP Findings: ET tube, NG tube. Unchanged mild cardiomegaly. Elevated right hemidiaphragm with associated basilar atelectasis. Pleural effusion not excluded. Unchanged left basilar opacity. No acute bony abnormality. IMPRESSION: 1. No significant change. 2. Left basilar atelectasis and/or airspace disease with probable effusion. Reviewed, dictated and finalized at location R. TEACHER
--- NOTE | ~2025-08-07 | XR_ITS ---
Examination: XR chest 1V portable Clinical History: intubated Comparison: 1 day prior Technique: Portable AP Findings: ET tube, NG tube. Unchanged cardiomegaly. Elevated right hemidiaphragm with associated basilar atelectasis. Pleural effusion not excluded. Developing left basilar airspace disease and/or pleural effusion. No acute bony abnormality. IMPRESSION: 1. Developing left basilar airspace disease and/or pleural effusion. Reviewed, dictated and finalized at location R. SHED GOODS STOCK CLERK
--- NOTE | ~2025-08-07 | XR_ITS ---
Examination: XR abdomen gastric tube insert Clinical History: NG tube insertion Comparison: 08/13/2025 Technique: Portable AP Findings/impression: 1. NG tube tip within gastric fundus. 2. Small residual oral contrast within gastric fundus. 3. Scattered oral contrast throughout small bowel Reviewed, dictated and finalized at location R. SCRAPER
--- NOTE | ~2025-08-07 | XR_ITS ---
EXAMINATION: XR ankle RT 2V, 08/09/2025 14:30 PIN MACHINE TENDER HISTORY: R ankle pain COMPARISON: No comparisons available. Findings: No acute fracture or malalignment. No significant degenerative changes. Soft tissues unremarkable. Impression: No acute fracture or malalignment. Reviewed, dictated and finalized at location P. MACHINE TENDER Impression: No acute fracture or malalignment.
--- NOTE | ~2025-08-07 | XR_ITS ---
Examination: XR abdomen gastric tube insert Clinical History: NG tube placement Comparison: Chest x-ray earlier same day Technique: Portable AP Findings/impression: 1. NG tube with sidehole just past GE junction. 2. Included upper abdomen with nonspecific bowel gas pattern. Reviewed, dictated and finalized at location R. TIZER OPERATOR
--- NOTE | ~2025-08-07 | XR_ITS ---
EXAMINATION: XR wrist RT 2V, 08/09/2025 14:30 BUSINESS SERVICES REPRESENTATIVE HISTORY: right wrist pain COMPARISON: No comparisons available. Findings: There is a remote appearing fracture of the distal scaphoid. No acute fracture is identified. Moderate degenerative changes of the carpal bones with widening of the scapholunate space suspicious for ligamentous injury. Soft tissues unremarkable. Impression: No acute fracture or malalignment. Reviewed, dictated and finalized at location P. NESS SERVICES REPRESENTATIVE Impression: No acute fracture or malalignment.
--- NOTE | ~2025-08-07 | XR_ITS ---
Examination: XR chest 1V portable Clinical History: intubated Comparison: 1 day prior Technique: Portable AP Findings: ET tube, NG tube. Unchanged cardiomegaly. Persistent elevation right hemidiaphragm with associated basilar atelectasis. Pleural effusion not excluded. Unchanged left basilar opacity. No acute bony abnormality. IMPRESSION: 1. No change. Reviewed, dictated and finalized at location R. RANCE CODER IMPRESSION: 1. No change.
[2025-08-07 16:47] VITALS: BP 192/54; PULSE 87; RESP 16; TEMP 37.2; O2SAT 95
--- NOTE | 2025-08-07 18:16 | ED_ITS ---
HPI - General Adult General Chief complaint: Extremity Problem,Nontraumatic <STACEY Blanchard - Last Filed: 08/07/25 18:30> Stated complaint: Right leg edema and tender <STACEY Blanchard - Last Filed: 08/07/25 18:30> Time Seen by Provider: 08/07/25 20:08 <STACEY Blanchard - Last Filed: 08/07/25 18:30> Focused HPI: 75 year old male presenting with right knee pain as well as chest pain and shortness of breath. Patient states he fell on Thursday night. He is also reporting an increase in urinary frequency and a nonproductive cough. Significant history of Parkinson's. Patient's family states a significant decline in cognition, coordination, and fatigue within the last 6 days. Denies nausea/vomiting/diarrhea, abdominal pain, fevers/chills, or dysuria. Patient states he is not on blood thinners. GENERAL: No acute distress. HEAD: Normocephalic, atraumatic. CHEST: Decreased lung sounds in all malagon. HEART: Regular rate and rhythm.? NEURO: ?Alert and oriented x3. Flat affect. EXTREMITIES: bilateral mild pitting edema up to midcalf. Patient screened in triage and initial orders placed.? ?Additional care and disposition to be based upon?diagnostic testing and treatment. <STACEY Blanchard - Last Filed: 08/07/25 18:30> History of Present Illness HPI narrative: 75-year-old male presents emergency department for evaluation for chest pain and intermittent shortness of breath. Patient reports he did have a ground level fall on Thursday. Patient does have history of Parkinson's disease. Family states that he has had worsening cognition coordination and fatigue over the last week or so. Patient denies any pain or injury from the fall. Patient is very fatigued appearing at time of initial evaluation. Patient did have follow-up with primary care physician and was referred to the emergency department for further evaluation. <Syed Ventura MD - Last Filed: 08/08/25 02:51> Related Data Home medications: Home Medications ?Medication ?Instructions ?Recorded ?Confirmed ?Last Taken ?Type pramipexole 1 mg tablet (Mirapex) 1 mg PO TID 09/29/22 08/08/25 08/08/25 History vibegron 75 mg tablet (Gemtesa) 75 mg PO DAILY 4 08/08/25 Unknown History carbidopa ER 50 mg-levodopa 200 mg 1 tablet PO ONCE 08/08/25 08/08/25 History tablet,extended release <STACEY Blanchard - Last Filed: 08/07/25 18:30> Allergies/adverse reactions: Allergies Allergy/AdvReac Type Severity Reaction Status Date / Time No Known Allergies Allergy Verified 08/08/25 00:04 <STACEY Blanchard - Last Filed: 08/07/25 18:30> Review of Systems 2 Review of Systems: All systems reviewed & are unremarkable except as noted in HPI and below <Syed Ventura MD - Last Filed: 08/08/25 02:51> [facility] Past Medical History Medical History: Medical History Left leg DVT not currently on anticoagulation Unspecified abnormalities of gait and mobility Other malaise COVID-19 Pulmonary embolism Elliquis discontinued after 6-8 weeks Lymphedema KYLE on CPAP Extrinsic asthma, unspecified Asthma Esophageal reflux Non-recurrent bilateral inguinal hernia without obstruction or gangrene Parkinson disease <STACEY Blanchard - Last Filed: 08/07/25 18:30> Surgical History Surgical History: Surgical History H/O hernia repair History of ear surgery (~11/2017) Implant - Lt Ear History of surgery on arm (~1998) Muscle Tear - Rt History of removal of cyst (~07/29/17) Rt Testicle History of tooth extraction <STACEY Blanchard - Last Filed: 08/07/25 18:30> Family History Family History: Family History Father Diabetes mellitus Mother Hypertension Family history of kidney disease Family history of renal failure Sibling Asthma Family history of malignant neoplasm Family history of seizure disorder Family history of sudden , Onset Age: 57 Family history of congestive heart failure, Onset Age: 57 Protein S deficiency <STACEY Blanchard - Last Filed: 08/07/25 18:30> Social History Social History: Social History Social History: Retired. He is . His has dementia and was just placed into memory care. 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 [place] Smoking status: Never smoker Second hand tobacco smoke exposure: No Alcohol intake: former Substance use: former Substance use type: does not use Lack of Transportation: No Lack of Food: Never True Current Housing: I Have Housing Concerned About Future Housing: No Difficulty Paying Gas/Electric Bills: No Difficulty Paying for Meds: No Currently Unemployed: No Education: Associate Degree Difficulty w/ Childcare or Family Care: No Living arrangements: assisted living Additional living arrangements comments: [place] assisted living Occupation/Education: retired Gender identity (if verbalized by the patient): Male Sexual Orientation (if Verbalized by the Patient): Straight or Heterosexual Spiritual care concerns: No Agree to blood products: Yes <STACEY Blanchard - Last Filed: 08/07/25 18:30> Exam 2 Narrative: APPEARANCE: Ill-appearing HEAD: normocephalic, atraumatic. EYES: PERRLA/EOMI, conjunctivae clear. NOSE: Normal no drainage EARS:TMS clear with good light reflex. THROAT: Pharynx clear, no exudate. NECK: Supple. No adenopathy, no masses. RESPIRATORY: Airway patent, respirations nonlabored. Clear to auscultation bilaterally, no rales, rhonchi, wheezing. CARDIOVASCULAR: Regular rate and rhythm without murmurs rubs or gallops. ABDOMINAL: Soft, nontender, nondistended, normal bowel sounds MUSCULOSKELETAL: lower extremity edema NEURO: Alert. Cranial nerves II through XII intact. grossly intact SKIN: Warm, dry. Normal Color <Syed Ventura MD - Last Filed: 08/08/25 02:51> Course Vital Signs Vital signs: Vital Signs Temperature 99 F 08/07/25 16:47 Pulse Rate 87 08/07/25 16:47 Respiratory Rate 16 08/07/25 16:47 Blood Pressure 192/54 H 08/07/25 16:47 Pulse Oximetry 95 12/08/25 16:47 Oxygen Delivery Room Air 08/07/25 16:47 Temperature 97.0 F L 08/08/25 00:39 Pulse Rate 80 08/08/25 00:50 Respiratory Rate 21 H 08/08/25 00:50 Blood Pressure 150/55 H 08/08/25 00:39 Pulse Oximetry 92 08/08/25 00:50 Oxygen Delivery Autopap 08/08/25 00:50 <STACEY Blanchard - Last Filed: 08/07/25 18:30> Vital Signs Temperature 99 F 08/07/25 16:47 Pulse Rate 87 08/07/25 16:47 Respiratory Rate 16 08/07/25 16:47 Blood Pressure 192/54 H 08/07/25 16:47 Pulse Oximetry 95 08/07/25 16:47 Oxygen Delivery Room Air 08/07/25 16:47 Temperature 97.0 F L 08/08/25 00:39 Pulse Rate 80 08/08/25 00:50 Respiratory Rate 21 H 08/08/25 00:50 Blood Pressure 150/55 H 08/08/25 00:39 Pulse Oximetry 92 08/08/25 00:50 Oxygen Delivery Autopap 08/08/25 00:50 <Syed Ventura MD - Last Filed: 08/08/25 02:51> MDM MDM Narrative Medical decision making narrative: 75-year-old male presents emergency department for evaluation for worsening generalized fatigue. Patient is currently afebrile but does have a leukocytosis 12.3 hemoglobin of 13. INR of 1.2 with no significant abnormalities on his CMP patient's proBNP is mildly elevated 770 this is not far from his baseline. Patient states he does have lower extremity edema but this is also not far from his typical baseline. Patient was negative for influenza RSV and for COVID. Knee x-ray was negative for acute fracture dislocation. Chest x-ray does show evidence of a bilateral pneumonia, clinically patient does appear to have a pneumonia as well. Blood cultures were ordered and patient is being started on antibiotics. Head CT was negative for acute intracranial abnormality. UA was negative for infection. Case will be discussed with the hospitalist for admission for generalized weakness secondary to suspected pneumonia. Patient does have a history of congestive heart failure. Patient will not be treated with 30 mL/kg of IV fluids due to this history. Patient is not tachycardic. Patient is not hypotensive and patient does not have an elevated lactic acid. <Syed Ventura MD - Last Filed: 08/08/25 02:51> Differential Diagnosis Differential Diagnosis: COVID, RSV influenza, pneumonia, UTI, cellulitis <Syed Ventura MD - Last Filed: 08/08/25 02:51> Lab Data MDM Lab Attestation statement: I personally reviewed the patient's lab results. <Syed Ventura MD - Last Filed: 08/08/25 02:51> Result diagrams: 08/07/25 18:59 08/07/25 18:59 <STACEY Blanchard - Last Filed: 08/07/25 18:30> Labs: Lab Results 08/07/25 08/07/25 Range/Units 18:59 20:12 WBC 12.3 H (4.5-10.0) K/mm3 RBC 4.52 L (4.6-6.20) M/mm3 Hgb 13.0 L (14.0-18.0) g/dL Hct 40.4 L (42.0-52.0) % MCV 89.4 (80-100) fl MCH 28.8 (26-34) pg MCHC 32.2 (32-36) g/dl RDW 13.0 (11.5-14.5) % Plt Count 168 (150-375) k/mm3 MPV 11.3 H (7.4-10.4) fl Immature Gran % (Auto) 0.5 (0-0.5) % Neut % (Auto) 80.9 H (45.5-73.1) % Lymph % (Auto) 7.1 L (18.3-44.2) % [place] % (Auto) 10.0 H (2.6-8.5) % Eos % (Auto) 1.2 (0-4.4) % Baso % (Auto) 0.3 (0.2-1.2) % Lymph # (Auto) 0.87 L (0.9-3.2) K/mm3 [place] # (Auto) 1.2 H (0.1-0.6) K/mm3 Eos # (Auto) 0.2 (0-0.3) K/mm3 Baso # (Auto) 0.0 (0.0-0.1) K/mm3 Abs Immat Gran (auto) 0.06 H (0.00-0.031) K/mm3 Absolute Neuts (auto) 10.0 H (1.3-6.7) K/mm3 Absolute Nucleated RBC 0.000 (0.0-0.012) K/mm3 Nucleated RBC % 0.0 (0.0-0.2) % PT 15.1 H (11.1-14.7) Seconds INR 1.2 APTT 36.1 (22.3-36.8) Seconds Sodium 139 (137-145) mmol/L Potassium 3.6 (3.4-5.0) mmol/L Chloride 105 (98-107) mmol/L Carbon Dioxide 26 (22-30) mmol/L Anion Gap 8 (4-12) mmol/L BUN 19 (9-20) mg/dL Creatinine 0.79 (0.7-1.3) mg/dL Estim Creat Clear Calc 90 ml/min Estimated GFR > 60 (59 - ) Glucose 135 H (65-110) mg/dL Lactic Acid 0.9 (0.7-2.0) mmol/L Calcium 8.9 (8.4-10.2) mg/dL Total Bilirubin 0.8 (0.2-1.3) mg/dL AST 30 (17-59) U/L ALT 11 (6-50) U/L Alkaline Phosphatase 67 (38-126) U/L NT-Pro-B Natriuret Pep 770 H (19.9-100) pg/mL Total Protein 7.2 (6.3-8.2) g/dL Albumin 4.1 (3.5-5.1) g/dL Urine Color Dark yellow (Yellow) Urine Appearance Clear (Clear) Urine pH 5.0 (5.0-9.0) Ur Specific [place] 1.034 (1.001-1.035) Urine Protein 1+ H (Negative) mg/dL Urine Glucose (UA) Negative (Negative) mg/dL Urine Ketones 1+ H (Negative) mg/dL Ur Blood (Man) Negative (Negative) Urine Nitrate Negative (Negative) Urine Bilirubin Negative (Negative) Urine Urobilinogen 1.0 (<2.0) mg/dL Leukocyte Esterase Rfl Trace H (Negative) GUILLE/UL Urine RBC 3-5 H (0-2) /hpf Urine WBC 0-5 (0-3) /hpf Ur Squamous Epith Cells None seen (Few) /hpf Urine Bacteria None seen /hpf Urine Casts 0-2 Influenza A (RT-PCR) Negative (Negative) Influenza B (RT-PCR) Negative (Negative) RSV (RT-PCR) Negative (Negative) SARS-CoV-2 RNA (RT-PCR) Negative (Negative) <STACEY Blanchard - Last Filed: 08/07/25 18:30> Lab Results 08/07/25 08/07/25 Range/Units 18:59 20:12 WBC 12.3 H (4.5-10.0) K/mm3 RBC 4.52 L (4.6-6.20) M/mm3 Hgb 13.0 L (14.0-18.0) g/dL Hct 40.4 L (42.0-52.0) % MCV 89.4 (80-100) fl MCH 28.8 (26-34) pg MCHC 32.2 (32-36) g/dl RDW 13.0 (11.5-14.5) % Plt Count 168 (150-375) k/mm3 MPV 11.3 H (7.4-10.4) fl Immature Gran % (Auto) 0.5 (0-0.5) % Neut % (Auto) 80.9 H (45.5-73.1) % Lymph % (Auto) 7.1 L (18.3-44.2) % [place] % (Auto) 10.0 H (2.6-8.5) % Eos % (Auto) 1.2 (0-4.4) % Baso % (Auto) 0.3 (0.2-1.2) % Lymph # (Auto) 0.87 L (0.9-3.2) K/mm3 [place] # (Auto) 1.2 H (0.1-0.6) K/mm3 Eos # (Auto) 0.2 (0-0.3) K/mm3 Baso # (Auto) 0.0 (0.0-0.1) K/mm3 Abs Immat Gran (auto) 0.06 H (0.00-0.031) K/mm3 Absolute Neuts (auto) 10.0 H (1.3-6.7) K/mm3 Absolute Nucleated RBC 0.000 (0.0-0.012) K/mm3 Nucleated RBC % 0.0 (0.0-0.2) % PT 15.1 H (11.1-14.7) Seconds INR 1.2 APTT 36.1 (22.3-36.8) Seconds Sodium 139 (137-145) mmol/L Potassium 3.6 (3.4-5.0) mmol/L Chloride 105 (98-107) mmol/L Carbon Dioxide 26 (22-30) mmol/L Anion Gap 8 (4-12) mmol/L BUN 19 (9-20) mg/dL Creatinine 0.79 (0.7-1.3) mg/dL Estim Creat Clear Calc 90 ml/min Estimated GFR > 60 (59 - ) Glucose 135 H (65-110) mg/dL Lactic Acid 0.9 (0.7-2.0) mmol/L Calcium 8.9 (8.4-10.2) mg/dL Total Bilirubin 0.8 (0.2-1.3) mg/dL AST 30 (17-59) U/L ALT 11 (6-50) U/L Alkaline Phosphatase 67 (38-126) U/L NT-Pro-B Natriuret Pep 770 H (19.9-100) pg/mL Total Protein 7.2 (6.3-8.2) g/dL Albumin 4.1 (3.5-5.1) g/dL Urine Color Dark yellow (Yellow) Urine Appearance Clear (Clear) Urine pH 5.0 (5.0-9.0) Ur Specific [place] 1.034 (1.001-1.035) Urine Protein 1+ H (Negative) mg/dL Urine Glucose (UA) Negative (Negative) mg/dL Urine Ketones 1+ H (Negative) mg/dL Ur Blood (Man) Negative (Negative) Urine Nitrate Negative (Negative) Urine Bilirubin Negative (Negative) Urine Urobilinogen 1.0 (<2.0) mg/dL Leukocyte Esterase Rfl Trace H (Negative) GUILLE/UL Urine RBC 3-5 H (0-2) /hpf Urine WBC 0-5 (0-3) /hpf Ur Squamous Epith Cells None seen (Few) /hpf Urine Bacteria None seen /hpf Urine Casts 0-2 Influenza A (RT-PCR) Negative (Negative) Influenza B (RT-PCR) Negative (Negative) RSV (RT-PCR) Negative (Negative) SARS-CoV-2 RNA (RT-PCR) Negative (Negative) <Syed Ventura MD - Last Filed: 08/08/25 02:51> Imaging Data Attestation: I personally reviewed and interpreted this imaging study as follows: <Syed Ventura MD - Last Filed: 08/08/25 02:51> My impression: x-ray: CHF, pneumonia knee x-ray: No acute abnormality <Syed Ventura MD - Last Filed: 08/08/25 02:51> Radiologist's impression: ITS Impressions Chest X-Ray 08/07/25 17:55 Impression: Mild CHF. Superimposed early pneumonia suspected Knee X-Ray 08/07/25 18:51 IMPRESSION: 1. No acute bony lesions. 2 osteopenic bones. Severe arthritis predominantly of patellofemoral joint. Please correlate with DEXA densitometry. 3 if symptoms are localized and persistent, MRI is indicated. Head CT 08/07/25 20:28 IMPRESSION: 1. No acute findings in the limited noncontrast CT head. Venous Doppler Study 08/07/25 20:49 IMPRESSION: 1. No deep venous thrombosis in the right lower extremity veins.. <STACEY Blanchard - Last Filed: 08/07/25 18:30> ITS Impressions Chest X-Ray 08/07/25 17:55 Impression: Mild CHF. Superimposed early pneumonia suspected Knee X-Ray 08/07/25 18:51 IMPRESSION: 1. No acute bony lesions. 2 osteopenic bones. Severe arthritis predominantly of patellofemoral joint. Please correlate with DEXA densitometry. 3 if symptoms are localized and persistent, MRI is indicated. Head CT 08/07/25 20:28 IMPRESSION: 1. No acute findings in the limited noncontrast CT head. Venous Doppler Study 08/07/25 20:49 IMPRESSION: 1. No deep venous thrombosis in the right lower extremity veins.. <Syed Ventura MD - Last Filed: 08/08/25 02:51> Discharge Plan Discharge Clinical Impression: Generalized weakness, Pneumonia Parkinson disease Qualifiers: Dyskinesia presence: unspecified whether dyskinesia Fluctuating manifestations: unspecified whether manifestations fluctuate Qualified Code(s): G20.A1 - Parkinson's disease without dyskinesia, without mention of fluctuations <STACEY Blanchard - Last Filed: 08/07/25 18:30> Patient Disposition: Still a Patient <STACEY Blanchard - Last Filed: 08/07/25 18:30> Condition: Stable <STACEY Blanchard - Last Filed: 08/07/25 18:30>
--- NOTE | 2025-08-07 18:23 | ECG_ITS ---
Test Date: 2025-08-07 18:53:24 Measurements Intervals [place] Rate: 87 P: 24 [place]: 156 QRS: -3 QRSD: 117 T: 38 QT: 379 QTc: 458 Interpretive Statements SINUS RHYTHM INCOMPLETE RIGHT BUNDLE BRANCH BLOCK LEFT VENTRICULAR HYPERTROPHY BASELINE ARTIFACT- III, V2 BORDERLINE ECG Compared to ECG 11/13/2024 21:25:08 NO SIGNIFICANT CHANGE Electronically Signed On 08-07-2025 19:54:27 [employer]TAIN CLEANER by Alex Stephenson D.O.
[2025-08-07 19:06] LABS: Hematocrit 40.4 % (42.0-52.0); Hemoglobin 13.0 g/dL (14.0-18.0); Immature Granulocyte Percent A 0.5 % (0-0.5); Lymphocytes Absolute Auto 0.87 K/mm3 (0.9-3.2); Mean Corpuscular HGB Conc 32.2 g/dl (32-36); Mean Corpuscular Hemoglobin 28.8 pg (26-34); Mean Corpuscular Volume 89.4 fl (80-100); Nucleated Red Blood Cells Absolute Auto 0.000 K/mm3 (0.0-0.012); Nucleated Red Blood Cells Perc 0.0 % (0.0-0.2); Platelet Count Result 168 k/mm3 (150-375); Red Blood Count 4.52 M/mm3 (4.6-6.20); White Blood Count 12.3 K/mm3 (4.5-10.0)
[2025-08-07 19:24] LABS: INR 1.2; Prothrombin Time 15.1 Seconds (11.1-14.7)
--- OUTSIDE RECORDS SUMMARY | 2025-08-07 19:24 | XMS_ITS | Clinical Summary ---
Author Organization [facility] Address [address] [place] [address] Care Team Providers Care Coke Wheeler Name Role Phone DorieTeresa BLANCA-TAPE CUTTING MACHINE OPERATOR Primary Care Provider Source Comments [facility],non-owned Affiliates and Associated Physician Practices is amultiple site organization consisting of ambulatory clinics and hospital sitesin [place], [place], [place] and [place]. This disclosure is being madepursuant to the Care Everywhere program and may not contain all information available regarding this patient. Last updated 18.[facility] Immunizations Immunization Administration Dates Next Due FLU VACCINE QUAD IIV4 PF ID 06/17/2016 Social History Tobacco Use Types Packs/Day Years Used Date Smoking Tobacco: Never Assessed Sex and Gender Information Value Date Recorded Sex Assigned at Not on file Legal Sex Male 11:10 AM CDT Gender Identity Not on file Sexual Orientation [...] 2002 ZOSTER VACCINE (1 of 2) 2002 DEPRESSION SCREENING 08/31/2024 MEDICARE AWV CALENDAR YEAR 2024 COVID-19 VACCINE (1 - 2024-2 6 season) 2025 INFLUENZA VACCINE (#1) 2025 06/17/2016 Respiratory Syncytial Virus (RSV) Vaccine Pt: or [...] on patient's age to complete this topic Insurance [employer] MEDICARE ADV Care Teams Coke Wheeler Relationship Specialty Start Date End Date Teresa Oshea APRN-CNP [address] [place] [id number] PCP - General Nurse Practitioner Adult Health 02/08/24
[2025-08-07 19:25] LABS: Partial Thromboplastin Time 36.1 Seconds (22.3-36.8)
--- OUTSIDE RECORDS SUMMARY | 2025-08-07 19:25 | XMS_ITS | Clinical Summary ---
Author Organization [facility] Address [address] [place] [address] Care Team Providers Care Safety Aide Name Role Phone Teresa Oshea NP Primary Care Provider [phone] Allergies No known active allergies Medications tiZANidine (Zanaflex) 4 mg tablet Take 1 tablet (4 mg total) by mouth 2 (two) times a day 2 Active fluticasone propionate (FLONASE) 50 mcg/actuation nasal spray Administer 2 sprays into each nostril daily 3 Active pramipexole (MIRAPEX) 1 mg tablet Take [...] (500 mcg total) by mouth daily Active carbidopa-levodop a CR (SINEMET CR) 50-200 mg per CR tablet Take 4 tablets by mouth nightly 360 tablet 3 5 02/22/20 26 Active sertraline (ZOLOFT) 25 mg tablet 5 Active traZODone (DESYREL) 50 mg tablet Active senna-docusate (PERICOLACE) 8.6-50 mg Take 2 tablets by mouth daily Active carbidopa-levodop a (SINEMET) 25-250 mg per tabletIndications :Idiopathic Parkinsonism Take 2.5 tablets by mouth 3 (three) times a day Take carbidopa-levo dopa 25/250 mg 2.5 tablet at 730-8 am, 12 pm, and 5 pm 675 tablet 3 5 06/30/20 Active Hospital, Clinic, or Other Facility Administered Medication Ordered Dose Route Frequency Start Date End Date Status incobotulinumtoxinA (XEOMIN) 50 unit injection 50 UnitsIndications:Droo ling 50 Units IM Once for Clinic-Administere d Medication 08/09/2025 Active Active Problems Problem Noted Date Diagnosed Date Constipation 06/21/2025 COVID 06/21/2025 Weakness 06/21/2025 Effusion of right knee joint 06/21/2025 Esophageal reflux 06/21/2025 Frequent falls 06/21/2025 Back pain 06/21/2025 Chronic knee pain 06/21/2025 Hip pain 06/21/2025 Lymphedema of both lower extremities 06/21/2025 Normocytic anemia 06/21/2025 Obesity (BMI 30-39.9) 06/21/2025 Obstructive sleep apnea syndrome 06/21/2025 Peripheral neuropathy 06/21/2025 Polyarticular arthritis 06/21/2025 Positive ROLANDO (antinuclear antibody) 06/21/2025 Primary localized osteoarthritis of knees, bilat eral 06/21/2025 Sciatica 06/21/2025 Shortness of breath 06/21/2025 VISI (volar intercalated segment instability) Polyarthralgia 03/10/2024 Overview (03/15/2024): Labs 03/10/2024: 03/11/24: [...] to further evaluate. Will request records from [facility] for further review. If records do not contain a synovial fluid analysis and our serologies suggest inflammation, then would consider USG knee aspiration with synovial fluid analysis. Should work up remain unremarkable, then will call with results and cancel C2 f/u. Seen with Dr. Smith. Pain of left hip joint 02/19/2023 Trochanteric bursitis of left hip 02/19/2023 Insomnia 10/20/2022 Primary freezing of gait 10/20/2022 Parkinson disease 04/14/2018 Assessment & Plan (06/29/2025 2:16 PM CDT): 75 y.o. man with Parkinson disease that began in 2014 at age 63 with rest tremor that was initially unilateral, slowing of gait, and joint stiffness and this has progressed to include rigidity, freezing of gait and mild cognitive issues. He had good response to levodopa with moderate peak dose dyskinesia and occasional wearing off. His FOG has still been an issue and we tried Straterra at his behest with no major improvements so that was stopped. He takes carbi/levo and pramipexole and does [...] notes some issues with dysphagia and hypophonia but has completed ST and OT for his dexterity. I will order PT for his motor symptoms. He is using his walker at all times. He should also start APDA youtube channel exercises and may start PD Voice Project if interested. He would like to be able to take his first dose of carbi/levo 25/250 first thing in the morning when he awakens and we will ask if that can be kept at bedside. I updated his meds list and will ask the facility to remove some of the drugs on his list that he no longer takes. He has some occasional middle insomnia and this didn't respond much to melatonin but has responded well to low dose trazodone. Bigger doses caused morning grogginess and we will keep this the same. He does not have RBD. He should avoid sleep aides with diphenhydramine. He had been taking tamsulosin and finasteride for his bladder but given the urgency, these were stopped in favor of Gemtesa. That also was not helpful and was stopped. Oxybutynin caused visual illusions in the past. He may continue Miralax and Senna-Docusate for constipation. We discussed briefly at last visit that [...] the propensity for dyskinesia with oral meds. Orders for [facility]: He does not think he is getting B12. Please resume B12 500 mcg per day. He says he is not taking the following drugs so please take them off his meds list: Albuterol and Optichamber. Please change polyethylene glycol and Mucinex to PRN dosing only as he says he is not getting these on a daily basis. Continue all meds listed on his attached list. If allowed at your facility, could you please give him his morning dose of carbi/levo 25/250 in the evening for him to keep at his bedside and take as soon as he awakens. This will help for him to get it more regularly and to be able to get up and out of bed more independently. Resume PT for gait and balance training, strength and stretching. My total encounter time was 45 minutes which was spent in the activities documented in the note including interview, assessment, education, and support. This includes time spent prior to the visit with 24 hours of the visit and after the visit in direct care of the patient. This time does not include time spent in any separately reportable services. I am seeing this patient for a chronic condition and will have continued care with this patient. Assessment & Plan (02/21/2025 10:40 AM CDT): Mr. Ori Bernardo is a 74 y.o. male, who presents for follow-up for Parkinson's disease (PD), with fluctuations and dyskinesias. He is about the same since the last visit. He transitioned to an assisted living and relies on the USTEP walker and wheelchair to move around. His need to help with ADLs is mostly driven by the poor mobility. Levodopa gives him energy. Dyskinesias are not bothersome. 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 He is on pramipexole and thinks it helps. He does not have any ICDs. Cognition and mood are ok. His MDS-UPDRS is stable compared with the last entry in 2022. Overall, he is about the same. Transition to assistive devices has minimized the impact of the medication refractory freezing of gait. 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 We also talked about sleep hygiene and stopping trazodone. Plan: Take carbidopa-levodopa 25/250 mg 2.5 tablet at 730-8 am, 12 pm, and 5 pm. Take carbidopa-levodopa 50/200 CR 4 tablet at bedtime (10 pm). Stop trazodone. Work on sleep hygiene. Continue pramipexole at the same dose. Potential medication side effects were discussed during the encounter. Assessment & Plan (09/30/2024 9:13 PM MOLD SHIFTER): 74 y.o. man with Parkinson disease that [...] all times. He should also start APDA [employer] channel exercises and may start PD Voice [...] as addressed to the patient): Orders for [facility]: Taper and stop atomoxetine. [...] at all times. He should also start Leondra musicA youtube channel exercises and may start PD [...] if interested in PT for FOG at [facility]. - Same trazodone for sleep. - [...] use. Assessment & Plan (09/03/2023 12:54 PM MOLD SHIFTER): 73 y.o. man with Parkinson's disease for [...] doing RSB and working out at the [employer] religiously. He has some occasional middle insomnia [...] dyshpagia. - Same Metamucil. - Start APDA yout[employer]ku channel exercises and PD voice project. - [...] encounter. Assessment & Plan (10/20/2022 2:03 PM MOLD SHIFTER): ASSESSMENT - 72 y.o. man with Parkinson's [...] doing RSB and working out at the [facility] religiously. - Insomnia: He has some [...] switching over to Miralax. - Start APDA yout[employer]ku channel exercises and PD voice project. - Switch oxybutynin to Myrbetriq, Gemtesa or Trospium with PMD/urologist. - Strict walker use. - Check B12. Assessment & Plan (10/14/2021 5:41 PM MOLD SHIFTER): ASSESSMENT - 71 y.o. man with Parkinson's [...] you have bothersome dyskinesias This encounter's total qzvw-df-wfdl time was greater than 40 minutes. I [...] dose. Assessment & Plan (11/08/2020 1:19 PM MOLD SHIFTER): ASSESSMENT - 70 y.o. man with Parkinson's [...] sleep disruption or nightmares. This encounter's total jxiv-fk-ulwo time was 25 minutes. I spent more than 50% of this time in counseling and/or coordination of care as documented in the note. The patient visit started at 1302 and ended at 1333. Greater than 50% of the visit was spent on counseling and coordinating care. Patient was counseled on rationale for starting amantadine. Assessment & Plan (09/12/2019 6:19 PM MOLD SHIFTER): - 69 y.o. man with Parkinson's disease [...] Encounters Date Type Department Care Team Description 06/30/2025 Documentation [facility] Medicine Movement Disorders [address] [facility] Advanced Medicine [address]th [place] [address] Kimi Pack [facility] 06/28/2025 Telephone [facility] Medicine Movement Disorders [address] [facility] [address]th [place] [address] Kimi Pack [facility] 06/26/2025 Orders Only [facility] Medicine Movement Disorders [address] [facility] Advanced Medicine 6th [place] [address] [place] [address] Romana Cummings MD Drooling (Primary Dx) 06/26/2025 Orders Only [facility] Medicine Movement Disorders [address] [facility] [address]th [place] [address] [place] [address] Romana Cummings MD Sialorrhea (Primary Dx) 06/22/2025 [facility] [address] [place] [address] Romana Cummings MD Scheduling Appointments 06/21/2025 3:30 PM CDT Office Visit [facility] Medicine Movement Disorders [address] [facility] [address]th [place] [address] Vanita Knott, ELIDIA Parkinson's disease with dyskinesia and fluctuating manifestations (HCC) (Primary Dx); Slow transit constipation; Primary insomnia; Primary freezing of gait from Last 3 Months Immunizations Immunization Administration Dates Next Due COVID-19 mRNA (WaveMAX) 0.3 m L (30 mcg) vaccine (12 years and up) 06/22/2023 H1N1 Inj 05/28/2017 Influenza, Quad, Adjuvantate d, Intramuscular 07/02/2023,06/22/2022 Influenza, Quadrivalent, Hig h Dose, Preservative Free, Intrr 05/28/2021,05/16/2020 Influenza, Quadrivalent, Rec ombinant, Egg Free, Preservative Free, Intramuscular 06/17/2016 Influenza, Quadrivalent, Spl it, Intramuscular 08/20/2017,08/31/2015 Influenza, Trivalent, High D ose, Split, Preservative Free, Intramuscular 07/03/2024,07/04/2019,06/17/2018,06/16,06/11/2017 Influenza, Trivalent, IM (MDV) 07/18/2015,2013,08/01/2013 Pneumococcal Conjugate PCV 13 06/11/2017, 017 Pneumococcal Polysaccharide PPV23 06/17/2018, RSV, Bivalent, Protein Subun it Rsvpref, Diluent (Abrysvo) 07/17/2023 ZOSTER LIVE 06/21/2014 ZOSTER Recombinant 12/13/2020,06/05/2020 Surgical History Surgery Date Site/Laterality Comments DE BIOPSY TESTIS INCISIONAL SEPARATE PROCEDURE 08/31/2013 - [...] (Added by TW Conv) Parkinson's disease (HCC) Cheng son disease, symptomatic - (Added by TW Conv) Asthma 2010 GERD (gastroesophageal reflux disease) 2010 Sleep apnea 2010 Ear problems Family History Medical History Relation Name Comments Cancer Brother Don Family history of malignant neoplasm - (Added by TW Conv) Parkinsonism Brother Don Diabetes Father Franky Relation Name Status Comments Brother Vargas Father Franky Social History Tobacco Use Types Packs/Day Years Used Date Smoking Tobacco: Never Smokeless Tobacco: Never Tobacco Cessation:Counseling Given: Not Answered Sex and Gender Information Value Date Recorded Sex Assigned at Not on file Legal Sex Male 2:48 PM MOLD SHIFTER Gender Identity Not on file Sexual Orientation Not on file Last Filed Vital Signs Vital Sign Reading Time Taken Comments Blood Pressure 184/66 06/21/2025 3:26 PM CDT Pulse 71 06/21/2025 3:26 PM CDT Temperature 36.3 C (97.3 F) 04/15/2024 12:35 PM CDT Respiratory Rate - - Oxygen Saturation 98% 03/10/2024 10:50 AM CDT Inhaled Oxygen Concentration - - Weight 119.3 kg (263 lb) 06/21/2025 3:26 PM CDT Height 167.6 cm (5' 6) 06/21/2025 3:26 PM CDT Body Mass Index 42.45 06/21/2025 3:26 PM CDT Plan of Treatment Health Maintenance Due Date Last Done Comments Colon Cancer Screening-Colonoscopy 1952 Fall Risk Assessment 1950 Hepatitis C Screening 1950 DTaP/Tdap/Td Vaccine (1 - Tdap) 1963 Hepatitis B Screening 1970 Well Visit 65+ 2017 Depression Screening 04/15/2025 04/15/2024 Covid-19 Vaccine (6 - 2024-2 6 season) 2025 06/22/2023, 06/22/2022, 05/28/2021, Additional history exists Influenza Vaccine (#1) 2025 , 07/02/2023, 06/22/2022, Additional history exists Pneumococcal vaccine 65+ Completed 018, 06/16/2018, 06/11/2017, Additional history exists Zoster Vaccine Completed 12/13/2020, 01/2020, 06/21/2014 Insurance AET MEDICARE Care Teams Safety Aide Relationship Specialty Start Date End Date Teresa Oshea NP [address] [place] [address] PCP - General Nurse Practitioner 09/02/23
[2025-08-07 19:26] LABS: Alanine Aminotransferase 11 U/L (6-50); Albumin Level 4.1 g/dL (3.5-5.1); Alkaline Phosphatase 67 U/L (38-126); Anion Gap 8 mmol/L (4-12); Aspartate Amino Transferase 30 U/L (17-59); Bilirubin,Total 0.8 mg/dL (0.2-1.3); Blood Urea Nitrogen 19 mg/dL (9-20); Calcium 8.9 mg/dL (8.4-10.2); Carbon Dioxide 26 mmol/L (22-30); Chloride 105 mmol/L (98-107); Estimated CRCL calculation 90 ml/min; Estimated Glomerular Filt Rate > 60; Glucose 135 mg/dL (65-110); Potassium 3.6 mmol/L (3.4-5.0); Sodium 139 mmol/L (137-145); Total Protein 7.2 g/dL (6.3-8.2)
[2025-08-07 19:33] LABS: NT Pro B Type Natriuretic Pept 770 pg/mL (19.9-100)
[2025-08-07 19:43] LABS: Influenza A QL RT-PCR Negative (Negative); Influenza B QL RT-PCR Negative (Negative); RSV RNA, RT-PCR Negative (Negative); SARS-CoV-2 RNA PCR Negative (Negative)
[2025-08-07 20:17] VITALS: BP 186/67; PULSE 81; RESP 25; TEMP 36.8; O2SAT 95
[2025-08-07 20:23] LABS: Add Urine Microscopic? YES; Appearance Urine Clear (Clear); Glucose Urine UA Negative (Negative); Leukocyte Esterase Ur Trace LEU/UL (Negative); Nitrate Urine Negative (Negative); Non Pathogenic Casts 0-2; Specific Grav Ur 1.034 (1.001-1.035)
[2025-08-07 21:01] VITALS: BP 188/70; PULSE 81; RESP 17; TEMP 36.9; O2SAT 94
[2025-08-07 21:32] VITALS: BP 123/78; PULSE 82; RESP 19; O2SAT 94
[2025-08-07 22:05] VITALS: BP 155/57; PULSE 79; RESP 19; TEMP 36.9; O2SAT 94
[2025-08-07] MEDS: cefTRIAXone 1 GM in SODIUM CHLORIDE 0.9% IV 50 ML 100 ML IVPB (22:41)
[2025-08-07] MEDS: AZITHROMYCIN IV 500 MG in SODIUM CHLORIDE 0.9% IV 250 ML IVPB (22:42)
[2025-08-07 23:15] VITALS: BP 139/47; PULSE 79; RESP 19; TEMP 36.9; O2SAT 96
--- NOTE | 2025-08-07 23:17 | WPCEDHO ---
ED Hand Off Checklist All vitals saved:Y IV Site documented:Y All med administrations documented:Y Triage Note Triage Note Pt to ed via wc with family co 08/07/25 20:07 BLE edema and tender, general weakness for a week. Pt had fall on Thursday night, no injury from the fall, was seen by his pcp today and was sent here. Agree with triage note. Allergies No Known Allergies Allergy (Verified 08/07/25 16:17) Family History (Last Reviewed 08/07/25 @ 15:02 by Loida Gonzalez [facility]) Father Diabetes mellitus Mother Hypertension Family history of kidney disease Family history of renal failure Sibling Asthma Family history of malignant neoplasm Family history of seizure disorder Family history of sudden Family history of congestive heart failure Protein S deficiency Administered/Completed Medications Discontinued Medications Ceftriaxone Sodium 1 gm/ (Sodium Chloride) 50 mls @ 100 mls/hr IVPB ONCE STA Stop: 08/07/25 22:11 Last Infusion: 08/07/25 23:14 Dose: Infused Documented By: Admin: 08/07/25 22:41 Dose: 100 mls/hr Documented By: NIGEL Azithromycin 500 mg/ Sodium (Chloride) 250 mls @ 250 mls/hr IVPB ONCE STA Stop: 08/07/25 22:41 Last Admin: 08/07/25 22:42 Dose: 250 mls/hr Documented By: NIGEL Interventions/Assessments IV / Saline Lock, Insert Start: 08/07/25 22:42 Freq: Status: Active Protocol: Document 08/07/25 22:42 [facility] (Rec: 08/07/25 22:42 [facility] [id number]) IV Assessment Peripheral Access Right Hand IV Catheter Access Initiated Before Arrival Catheter Gauge 20 IV Site Assessment WNL IV Care and WNL Maintenance Last Vital Signs Temperature 98.5 F 08/07/25 23:15 Pulse Rate 79 08/07/25 23:15 Respiratory Rate 19 08/07/25 23:15 Pulse Oximetry 96 08/07/25 23:15 Blood Pressure 139/47 L 08/07/25 23:15 Blood Pressure Mean 77 08/07/25 23:15 Oxygen Delivery Room Air 08/07/25 16:47 Weight 122.7 kg 08/07/25 16:47 Last Result - Abnormals Only WBC 12.3 K/mm3 (4.5-10.0) H 08/07/25 18:59 RBC 4.52 M/mm3 (4.6-6.20) L 08/07/25 18:59 Hgb 13.0 g/dL (14.0-18.0) L 08/07/25 18:59 Hct 40.4 % (42.0-52.0) L 08/07/25 18:59 MPV 11.3 fl (7.4-10.4) H 08/07/25 18:59 Neut % (Auto) 80.9 % (45.5-73.1) H 08/07/25 18:59 Lymph % (Auto) 7.1 % (18.3-44.2) L 08/07/25 18:59 Green % (Auto) 10.0 % (2.6-8.5) H 08/07/25 18:59 Lymph # (Auto) 0.87 K/mm3 (0.9-3.2) L 08/07/25 18:59 Green # (Auto) 1.2 K/mm3 (0.1-0.6) H 08/07/25 18:59 Abs Immat Gran (auto) 0.06 K/mm3 (0.00-0.031) H 08/07/25 18:59 Absolute Neuts (auto) 10.0 K/mm3 (1.3-6.7) H 08/07/25 18:59 PT 15.1 Seconds (11.1-14.7) H 08/07/25 18:59 Glucose 135 mg/dL (65-110) H 08/07/25 18:59 NT-Pro-B Natriuret Pep 770 pg/mL (19.9-100) H 08/07/25 18:59 Urine Protein 1+ mg/dL (Negative) H 08/07/25 20:12 Urine Ketones 1+ mg/dL (Negative) H 08/07/25 20:12 Leukocyte Esterase Rfl Trace GUILLE/UL (Negative) H 08/07/25 20:12 Urine RBC 3-5 /hpf (0-2) H 08/07/25 20:12 Most Recent Suicide Severity Rating Suicide Severity Rating NO RISK INDICATED 08/07/25 20:07
[2025-08-07 23:59] VITALS: BMI 44.4
[2025-08-08] VITALS (9 sets, daily range): BP systolic 146–188; BP diastolic 48–57; PULSE 72–106; RESP 20–37; TEMP 36.1–37.5; O2SAT 92–95
--- NOTE | 2025-08-08 00:07 | ADMGEN ---
This patient, Ori Bernardo, was admitted to 3 [facility] Surg Room 311-01. Patient/family oriented to hospital policies and general routines including ID bracelet, bed and alarms, visiting hours, pain management, procedures, bathroom and other care routines, personal items, smoking policy, room service/diet, and visiting hours. Information on how to activate the Rapid Response Team has been discussed. Patient/Family are encouraged to report perceived risks to care and to ask questions if they do not understand what they are told or what they should do.
[2025-08-08] MEDS: SENNA/DOCUSATE SODIUM TABLET 2 TAB PO ×2 (10:15→16:03)
[2025-08-08] MEDS: TIZANIDINE HCL 4 MG TABLET PO ×2 (10:19→16:03)
[2025-08-08] MEDS: guaiFENesin 12 HR 600 MG TABCR PO ×2 (10:19→22:00)
[2025-08-08] MEDS: PRAMIPEXOLE 1 MG TABLET PO ×3 (10:20→16:03)
[2025-08-08] MEDS: SERTRALINE HCL 25 MG TABLET PO (10:20)
[2025-08-08] MEDS: AMANTADINE HCL 100 MG CAPSULE PO ×2 (13:54→16:05)
[2025-08-08] MEDS: LEVODOPA PO ×2 (13:55→16:04)
[2025-08-08] MEDS: CARBIDOPA PO ×2 (13:55→16:04)
[2025-08-08] MEDS: CARBIDOPA/LEVODOPA 25/250 MG TABLET 2 TABLET PO ×2 (13:55→16:03)
--- NOTE | 2025-08-08 14:39 | PM.IMHP2 ---
H&P: HPI History of Present Illness Date/Time: 08/08/25 14:39 Chief Complaint: Extremity Problem,Nontraumatic Narrative: ER-HPI narrative: 75-year-old male presents emergency department for evaluation for chest pain and intermittent shortness of breath. Patient reports he did have a ground level fall on Thursday night. Patient does have history of Parkinson's disease. Family states that he has had worsening cognition coordination and fatigue over the last week or so. Patient denies any pain or injury from the fall. Patient is very fatigued appearing at time of initial evaluation. Patient presented with shortness of breath and general malaise with history of Parkinson disease for which he is taking Carbidopa/Levodopa, Patient is seen by the neurologist at the [facility], patient chest x-ray showed pneumonia most likely CAP, patient is being treated with ceftriaxone and Zithromax, will continue patient home meds. will have PT/OT evaluate the patient. Review of Systems Review of Systems: All systems reviewed & are unremarkable except as noted in HPI and below PMFSH Past Medical History Medical History Left leg DVT not currently on anticoagulation Unspecified abnormalities of gait and mobility Other malaise COVID-19 Pulmonary embolism Elliquis discontinued after 6-8 weeks Lymphedema KYLE on CPAP Extrinsic asthma, unspecified Asthma Esophageal reflux Non-recurrent bilateral inguinal hernia without obstruction or gangrene Parkinson disease Surgical History Surgical History H/O hernia repair History of ear surgery (~11/2017) Implant - Lt Ear History of surgery on arm (~1998) Muscle Tear - Rt History of removal of cyst (~07/29/17) Rt Testicle History of tooth extraction Family History Family History Father Diabetes mellitus Mother Hypertension Family history of kidney disease Family history of renal failure Sibling Asthma Family history of malignant neoplasm Family history of seizure disorder Family history of sudden , Onset Age: 57 Family history of congestive heart failure, Onset Age: 57 Protein S deficiency Social History Social History Social History: Retired. He is . His has dementia and was just placed into memory care. 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 [place] Smoking status: Never smoker Second hand tobacco smoke exposure: No Alcohol intake: former Substance use: former Substance use type: does not use Lack of Transportation: No Lack of Food: Never True Current Housing: I Have Housing Concerned About Future Housing: No Difficulty Paying Gas/Electric Bills: No Difficulty Paying for Meds: No Currently Unemployed: No Education: Associate Degree Difficulty w/ Childcare or Family Care: No Living arrangements: assisted living Additional living arrangements comments: [facility] Occupation/Education: retired Gender identity (if verbalized by the patient): Male Sexual Orientation (if Verbalized by the Patient): Straight or Heterosexual Spiritual care concerns: No Agree to blood products: Yes Meds Home Medications and Allergies Home Medications ?Medication ?Instructions ?Recorded ?Confirmed ?Type pramipexole 1 mg tablet (Mirapex) 1 mg PO TID 09/29/22 08/08/25 History vibegron 75 mg tablet (Gemtesa) 75 mg PO DAILY 06/25/24 08/08/25 History amantadine HCl 100 mg capsule 100 mg PO TID #90 caps 07/10/24 08/08/25 Rx fluticasone propionate 50 2 spray intranasal PRN PRN 07/10/24 08/08/25 Rx mcg/actuation nasal allergies #1 spray spray,suspension (Flonase Allergy Relief) gabapentin 600 mg tablet 600 mg PO QHS #30 tabs 07/10/24 08/08/25 Rx guaifenesin 600 mg tablet, 600 mg PO Q12HR #60 tabs 07/10/24 08/08/25 Rx extended release 12 hr (Mucus Relief ER) polyethylene glycol 3350 17 gram 17 g PO QAM #30 ea 07/10/24 08/08/25 Rx oral powder packet (Miralax) sennosides 8.6 mg-docusate sodium 2 tab PO BID #60 tabs 07/10/24 08/08/25 Rx 50 mg tablet tizanidine 4 mg tablet 4 mg PO BID muscle spasticity #180 07/10/24 08/08/25 Rx tabs trazodone 100 mg tablet 100 mg PO QHS #30 tabs 07/10/24 08/08/25 Rx albuterol sulfate 90 mcg/actuation 2 inh inhalation Q4H PRN shortness 11/17/24 08/08/25 Rx aerosol inhaler of breath or wheezing #8.5 grams inhalational spacing device #1 ea 11/17/24 02/13/25 Rx (BreatheRite MDI Spacer) fluticasone fur. 100 mcg-umeclid 100-62.5-25 mcg Blister With 02/13/25 08/08/25 Sample 62.5 mcg-vilant 25 mcg Device#2 Samples inhalat.powder (Trelegy Ellipta) sertraline 25 mg tablet 25 mg PO DAILY #30 tabs 03/20/25 08/08/25 Rx carbidopa ER 50 mg-levodopa 200 mg 4 tablet PO HS 08/07/25 08/08/25 History tablet,extended release carbidopa 25 mg-levodopa 250 mg 2.5 tablet PO TID 08/08/25 08/08/25 History tablet Allergies Allergy/AdvReac Type Severity Reaction Status Date / Time No Known Allergies Allergy Verified 08/08/25 00:04 Vital Signs Vital Signs - 24 hr 08/07/25 16:47 08/07/25 20:17 08/07/25 21:01 Temperature 37.2 C 36.8 C 36.9 C Pulse Rate 87 81 81 Respiratory Rate 16 25 H 17 Blood Pressure 192/54 H 186/67 H 188/70 H Pulse Oximetry 95 95 94 Oxygen Delivery Room Air 08/07/25 21:32 08/07/25 22:05 08/07/25 23:15 Temperature 36.9 C 36.9 C Pulse Rate 82 79 79 Respiratory Rate 19 19 19 Blood Pressure 123/78 155/57 H 139/47 L Pulse Oximetry 94 94 96 Oxygen Delivery 08/08/25 00:39 08/08/25 00:50 08/08/25 04:00 Temperature 36.1 C L Pulse Rate 73 80 93 Respiratory Rate 20 21 H Blood Pressure 150/55 H Pulse Oximetry 93 92 Oxygen Delivery Autopap 08/08/25 06:00 08/08/25 08:00 08/08/25 14:00 Temperature 36.2 C L 37.5 C Pulse Rate 72 80 85 Respiratory Rate 20 22 H Blood Pressure 174/57 H 188/54 H Pulse Oximetry 95 95 Oxygen Delivery Exam Narrative: Patient is comfortable, NAD HEENT: eyes are clear and none icteric LUNGS: Bilateral fair entry with rhonchi HEART: RR S1S2 ABD: BS+, Soft and nontender Lower extremities: no edema SKIN: nonjaundiced Neuro: grossly intact. Results Labs Labs: Short CBC 08/07/25 Range/Units 18:59 WBC 12.3 H (4.5-10.0) K/mm3 Hgb 13.0 L (14.0-18.0) g/dL Hct 40.4 L (42.0-52.0) % Plt Count 168 (150-375) k/mm3 BMP 08/07/25 18:59 Sodium 139 Potassium 3.6 Chloride 105 Carbon Dioxide 26 BUN 19 Creatinine 0.79 Glucose 135 H Calcium 8.9 Liver Function 08/07/25 Range/Units 18:59 Total Bilirubin 0.8 (0.2-1.3) mg/dL AST 30 (17-59) U/L ALT 11 (6-50) U/L Alkaline Phosphatase 67 (38-126) U/L Albumin 4.1 (3.5-5.1) g/dL Urine 08/07/25 Range/Units 20:12 Urine Color Dark yellow (Yellow) Urine Appearance Clear (Clear) Urine pH 5.0 (5.0-9.0) Ur Specific [place] 1.034 (1.001-1.035) Urine Protein 1+ H (Negative) mg/dL Urine Glucose (UA) Negative (Negative) mg/dL Quality VTE Prophylaxis VTE prophylaxis: mechanical ordered Assessment and Plan Assessment and plan (1) Parkinson disease: Qualifiers: Dyskinesia presence: unspecified whether dyskinesia Fluctuating manifestations: unspecified whether manifestations fluctuate Qualified Code(s): G20.A1 - Parkinson's disease without dyskinesia, without mention of fluctuations Code(s): G20 - Parkinson's disease Status: Acute (2) Peripheral neuropathy: Code(s): G62.9 - Polyneuropathy, unspecified Status: Acute (3) Pneumonia: Code(s): J18.9 - Pneumonia, unspecified organism Status: Acute (4) Weakness: Code(s): R53.1 - Weakness Status: Acute (5) Generalized weakness: Code(s): R53.1 - Weakness Status: Acute Plan Patient presented with shortness of breath and general malaise with history of Parkinson disease for which he is taking Carbidopa/Levodopa, Patient is seen by the neurologist at the [facility], patient chest x-ray showed pneumonia most likely CAP, patient is being treated with ceftriaxone and Zithromax, will continue patient home meds. will have PT/OT evaluate the patient. Hospitalist MIPS Advance Care Plan The patient's Advanced Care plan is not present because:: Patient doesn't want to name surrogate or provider advance care plan Medication Reconciliation The patient is not eligible for med reconciliation; the patient is in a emergent medical situation where delaying treatment would jeopardize the patients health.: Yes
--- NOTE | 2025-08-08 15:06 | WPDNEURCNPN ---
Assessment and Plan Assessment and plan (1) Parkinson disease: Qualifiers: Dyskinesia presence: unspecified whether dyskinesia Fluctuating manifestations: unspecified whether manifestations fluctuate Qualified Code(s): G20.A1 - Parkinson's disease without dyskinesia, without mention of fluctuations Code(s): G20 - Parkinson's disease Status: Acute Plan History of Parkinson's disease for which he followed by the neurologist at [facility] and has been receiving multiple medication, I will reexamine him and rediscuss with as his care will be provided by the physician at [facility] and if any family member has any question hypo glad to discuss with Them Consult date: 08/08/25 HPI: Ori Bernardo is a 75 year old male admitted to the hospital through the emergency room with the complaints of right knee pain and chest pain along with shortness of breath and with the history that he fell on Thursday night additionally he was complaining of increasing urinary frequency and nonproductive cough. Neurology consultation has been obtained because patient carries a diagnosis of Parkinson's disease and has noted a decline in cognition, coordination, and has been complaining of increasing fatigue over the last 6 days. His medications included pramipexole 1mg 3 times a day, carbidopa levodopa extended release 50/200 1 tablet once a day. Not allergic to any medications. In the past he has had multiple problems 1. Lower extremity DVT though he is not receiving anticoagulation therapy 2. Pulmonary embolism for which she took Eliquis which was discontinued after 6 to 8 weeks. 3. COVID 4. Non recurrent bilateral inguinal hernia and 5. Parkinson disease as mentioned above . He is not a smoker. and also he is a former alcohol Intaker ,on initial exam he appeared somewhat ill, noted to have bilateral lower extremity edema, his vital signs were normal except blood pressure 192/54, his initial CBC was fairly unremarkable, BMP was also normal, he was negative for influenza a B RSV and [facility]-0, and his mast scan was normal, his x-ray chest was compatible with mild congestive heart failure and possible early pneumonia. CT scan of the head was negative for the bleed or major stroke. He has already undergone Doppler study of the lower extremity was found to have DVT in the right lower extremity. As far as the Parkinson's is concerned he is taking amantadine 100mg 3 times a day, carbidopa levodopa 25/250 2 and half tablets 3 times a day and carbidopa levodopa 50/200 extended release 4 tablets at night he is also taking trazodone 100mg at night, tizanidine 4mg b.i.d., sertraline 25mg daily, pramipexole 1mg 3 times a day [facility] Past Medical History Medical History Left leg DVT not currently on anticoagulation Unspecified abnormalities of gait and mobility Other malaise COVID-19 Pulmonary embolism Elliquis discontinued after 6-8 weeks Lymphedema KYLE on CPAP Extrinsic asthma, unspecified Asthma Esophageal reflux Non-recurrent bilateral inguinal hernia without obstruction or gangrene Parkinson disease Surgical History Surgical History H/O hernia repair History of ear surgery (~11/2017) Implant - Lt Ear History of surgery on arm (~1998) Muscle Tear - Rt History of removal of cyst (~07/29/17) Rt Testicle History of tooth extraction Family History Family History Father Diabetes mellitus Mother Hypertension Family history of kidney disease Family history of renal failure Sibling Asthma Family history of malignant neoplasm Family history of seizure disorder Family history of sudden , Onset Age: 57 Family history of congestive heart failure, Onset Age: 57 Protein S deficiency Social History Social History Social History: Retired. He is . His has dementia and was just placed into memory care. 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[place] Smoking status: Never smoker Second hand tobacco smoke exposure: No Alcohol intake: former Substance use: former Substance use type: does not use Lack of Transportation: No Lack of Food: Never True Current Housing: I Have Housing Concerned About Future Housing: No Difficulty Paying Gas/Electric Bills: No Difficulty Paying for Meds: No Currently Unemployed: No Education: Associate Degree Difficulty w/ Childcare or Family Care: No Living arrangements: assisted living Additional living arrangements comments: [facility] Occupation/Education: retired Gender identity (if verbalized by the patient): Male Sexual Orientation (if Verbalized by the Patient): Straight or Heterosexual Spiritual care concerns: No Agree to blood products: Yes Meds Home Medications and Allergies Home Medications ?Medication ?Instructions ?Recorded ?Confirmed ?Type pramipexole 1 mg tablet (Mirapex) 1 mg PO TID 09/29/22 08/08/25 History vibegron 75 mg tablet (Gemtesa) 75 mg PO DAILY 06/25/24 08/08/25 History amantadine HCl 100 mg capsule 100 mg PO TID #90 caps 07/10/24 08/08/25 Rx fluticasone propionate 50 2 spray intranasal PRN PRN 07/10/24 08/08/25 Rx mcg/actuation nasal allergies #1 spray spray,suspension (Flonase Allergy Relief) gabapentin 600 mg tablet 600 mg PO QHS #30 tabs 07/10/24 08/08/25 Rx guaifenesin 600 mg tablet, 600 mg PO Q12HR #60 tabs 07/10/24 08/08/25 Rx extended release 12 hr (Mucus Relief ER) polyethylene glycol 3350 17 gram 17 g PO QAM #30 ea 07/10/24 08/08/25 Rx oral powder packet (Miralax) sennosides 8.6 mg-docusate sodium 2 tab PO BID #60 tabs 07/10/24 08/08/25 Rx 50 mg tablet tizanidine 4 mg tablet 4 mg PO BID muscle spasticity #180 07/10/24 08/08/25 Rx tabs trazodone 100 mg tablet 100 mg PO QHS #30 tabs 07/10/24 08/08/25 Rx albuterol sulfate 90 mcg/actuation 2 inh inhalation Q4H PRN shortness 11/17/24 08/08/25 Rx aerosol inhaler of breath or wheezing #8.5 grams inhalational spacing device #1 ea 11/17/24 02/13/25 Rx (BreatheRite MDI Spacer) fluticasone fur. 100 mcg-umeclid 100-62.5-25 mcg Blister With 02/13/25 08/08/25 Sample 62.5 mcg-vilant 25 mcg Device#2 Samples inhalat.powder (Trelegy Ellipta) sertraline 25 mg tablet 25 mg PO DAILY #30 tabs 03/20/25 08/08/25 Rx carbidopa ER 50 mg-levodopa 200 mg 4 tablet PO HS 08/07/25 08/08/25 History tablet,extended release carbidopa 25 mg-levodopa 250 mg 2.5 tablet PO TID 08/08/25 08/08/25 History tablet Allergies Allergy/AdvReac Type Severity Reaction Status Date / Time No Known Allergies Allergy Verified 08/08/25 00:04 Vital Signs Vital Signs - 24 hr 08/07/25 16:47 08/07/25 20:17 08/07/25 21:01 Temperature 37.2 C 36.8 C 36.9 C Pulse Rate 87 81 81 Respiratory Rate 16 25 H 17 Blood Pressure 192/54 H 186/67 H 188/70 H Pulse Oximetry 95 95 94 Oxygen Delivery Room Air 08/07/25 21:32 08/07/25 22:05 08/07/25 23:15 Temperature 36.9 C 36.9 C Pulse Rate 82 79 79 Respiratory Rate 19 19 19 Blood Pressure 123/78 155/57 H 139/47 L Pulse Oximetry 94 94 96 Oxygen Delivery 08/08/25 00:39 08/08/25 00:50 08/08/25 04:00 Temperature 36.1 C L Pulse Rate 73 80 93 Respiratory Rate 20 21 H Blood Pressure 150/55 H Pulse Oximetry 93 92 Oxygen Delivery Autopap 08/08/25 06:00 08/08/25 08:00 08/08/25 14:00 Temperature 36.2 C L 37.5 C Pulse Rate 72 80 85 Respiratory Rate 20 22 H Blood Pressure 174/57 H 188/54 H Pulse Oximetry 95 95 Oxygen Delivery Exam Narrative: on exam he is awake alert comfortable follow the verbal commands appropriately his speech is of low volume but not dysarthric and appears somewhat sluggish in motor responses, head normocephalic with no cranial bruits, ear nose throat examination normal, neck supple with no meningeal signs no cervical bruit no thyromegaly no lymphadenopathy, heart regular, lungs clear, abdomen is soft nontender, neurologically he is awake alert he was interested in the exam his speech was of low volume but not dysarthric and follow the instruction fairly well, pupils round regular feels the vision full in all 4 quadrants, extraocular movements are full with no nystagmus and no restriction of the upper downward gaze, facial sensation intact, face symmetrical, tongue in the midline, motor examination revealed him to have hint of cogwheeling in upper and lower extremities, with slow movements of the upper and lower extremities and is sluggish deep tendon reflexes also downgoing plantar responses there was no evidence of ataxia or dysmetria with the upper extremities when approached the examiner's hand though he was unable to perform heel to knee to callejsa. He was not made to stand or walk at this particular time. Results Labs 08/07/25 18:59 08/07/25 18:59 Labs: Short CBC 08/07/25 Range/Units 18:59 WBC 12.3 H (4.5-10.0) K/mm3 Hgb 13.0 L (14.0-18.0) g/dL Hct 40.4 L (42.0-52.0) % Plt Count 168 (150-375) k/mm3 BMP 08/07/25 18:59 Sodium 139 Potassium 3.6 Chloride 105 Carbon Dioxide 26 BUN 19 Creatinine 0.79 Glucose 135 H Calcium 8.9 Liver Function 08/07/25 Range/Units 18:59 Total Bilirubin 0.8 (0.2-1.3) mg/dL AST 30 (17-59) U/L ALT 11 (6-50) U/L Alkaline Phosphatase 67 (38-126) U/L Albumin 4.1 (3.5-5.1) g/dL Urine 08/07/25 Range/Units 20:12 Urine Color Dark yellow (Yellow) Urine Appearance Clear (Clear) Urine pH 5.0 (5.0-9.0) Ur Specific [place] 1.034 (1.001-1.035) Urine Protein 1+ H (Negative) mg/dL Urine Glucose (UA) Negative (Negative) mg/dL
[2025-08-08] MEDS: ACETAMINOPHEN 325 MG TABLET 650 MG PO (16:03)
[2025-08-08] MEDS: ALPRAZolam (*CRX) 0.5 MG TABLET PO (16:04)
[2025-08-08] MEDS: SODIUM CHLORIDE 0.9% IV 1,000 ML 100 ML IV CONT (16:49)
[2025-08-08] MEDS: GABAPENTIN 300 MG CAPSULE 600 MG PO (21:59)
[2025-08-08] MEDS: cefTRIAXone 1 GM in SODIUM CHLORIDE 0.9% IV 50 ML 100 ML IVPB (22:00)
[2025-08-08] MEDS: CARBIDOPA/LEVODOPA 25/100 MG CR TABLET 8 TABLET PO (23:01)
[2025-08-08] MEDS: AZITHROMYCIN IV 500 MG in SODIUM CHLORIDE 0.9% IV 250 ML IVPB (23:08)
[2025-08-09] VITALS (27 sets, daily range): BP systolic 128–160; BP diastolic 47–97; PULSE 59–122; RESP 20–42; TEMP 36.6–39.6; O2SAT 94–100; BMI 10.0
[2025-08-09] MEDS: SODIUM CHLORIDE 0.9% IV 1,000 ML 100 ML IV CONT ×2 (04:38→14:24)
[2025-08-09 07:48] LABS: Hematocrit 35.9 % (42.0-52.0); Hemoglobin 11.5 g/dL (14.0-18.0); Mean Corpuscular HGB Conc 32.0 g/dl (32-36); Mean Corpuscular Hemoglobin 29.2 pg (26-34); Mean Corpuscular Volume 91.1 fl (80-100); Platelet Count Result 163 k/mm3 (150-375); Red Blood Count 3.94 M/mm3 (4.6-6.20); White Blood Count 12.3 K/mm3 (4.5-10.0)
[2025-08-09 08:03] LABS: Albumin Level 3.1 g/dL (3.5-5.1); Alkaline Phosphatase 56 U/L (38-126); Anion Gap 4 mmol/L (4-12); Aspartate Amino Transferase 32 U/L (17-59); Bilirubin,Total 1.0 mg/dL (0.2-1.3); Blood Urea Nitrogen 15 mg/dL (9-20); Calcium 7.9 mg/dL (8.4-10.2); Carbon Dioxide 27 mmol/L (22-30); Chloride 105 mmol/L (98-107); Estimated CRCL calculation 98 ml/min; Estimated Glomerular Filt Rate > 60; Glucose 111 mg/dL (65-110); Magnesium 2.0 mg/dL (1.6-2.3); Potassium 3.4 mmol/L (3.4-5.0); Sodium 136 mmol/L (137-145); Total Protein 5.8 g/dL (6.3-8.2)
[2025-08-09 08:05] LABS: Alanine Aminotransferase < 6 U/L (6-50)
[2025-08-09] MEDS: guaiFENesin 12 HR 600 MG TABCR PO (10:09)
[2025-08-09] MEDS: TIZANIDINE HCL 4 MG TABLET PO (10:09)
[2025-08-09] MEDS: PRAMIPEXOLE 1 MG TABLET PO ×2 (10:09→13:12)
[2025-08-09] MEDS: SENNA/DOCUSATE SODIUM TABLET 2 TAB PO (10:09)
[2025-08-09] MEDS: AMANTADINE HCL 100 MG CAPSULE PO ×2 (10:09→13:12)
[2025-08-09] MEDS: SERTRALINE HCL 25 MG TABLET PO (10:09)
[2025-08-09] MEDS: CARBIDOPA PO ×2 (10:13→13:12)
[2025-08-09] MEDS: CARBIDOPA/LEVODOPA 25/250 MG TABLET 2 TABLET PO ×2 (10:13→13:12)
[2025-08-09] MEDS: LEVODOPA PO ×2 (10:13→13:12)
[2025-08-09] MEDS: ACETAMINOPHEN 325 MG TABLET 650 MG PO (10:20)
--- NOTE | 2025-08-09 16:42 | P.PNIM_ITS ---
Assessment and Plan Assessment and Plan (1) Parkinson disease: Qualifiers: Dyskinesia presence: unspecified whether dyskinesia Fluctuating manifestations: unspecified whether manifestations fluctuate Qualified Code(s): G20.A1 - Parkinson's disease without dyskinesia, without mention of fluctuations Code(s): G20 - Parkinson's disease Status: Acute (2) Peripheral neuropathy: Code(s): G62.9 - Polyneuropathy, unspecified Status: Acute (3) Pneumonia: Code(s): J18.9 - Pneumonia, unspecified organism Status: Acute (4) Weakness: Code(s): R53.1 - Weakness Status: Acute (5) Generalized weakness: Code(s): R53.1 - Weakness Status: Acute Plan Patient presented with shortness of breath and general malaise with history of Parkinson disease for which he is taking Carbidopa/Levodopa, Patient is seen by the neurologist at the [facility], patient chest x-ray showed pneumonia most likely CAP, patient is being treated with ceftriaxone and Zithromax, will continue patient home meds. will have PT/OT evaluate the patient. Repeat chest x-ray did not show any pneumonia, however there was concern about mild CHF which was resolved in the repeat chest x-ray however family is concerned about the mild CHF on x-ray will give 1 time IV Lasix and monitor, right knee x-ray showed severe OA, will consult an orthopedic, right wrist and ankle x-ray did not show any acute injury, patient family present, gave updates and answered all the questions. Subjective Date/time seen: 08/09/25 16:42 Interval history: Extremity Problem,Nontraumatic Narrative: ER-HPI narrative: 75-year-old male presents emergency department for evaluation for chest pain and intermittent shortness of breath. Patient reports he did have a ground level fall on Thursday night. Patient does have history of Parkinson's disease. Family states that he has had worsening cognition coordination and fatigue over the last week or so. Patient denies any pain or injury from the fall. Patient is very fatigued appearing at time of initial evaluation. Patient presented with shortness of breath and general malaise with history of Parkinson disease for which he is taking Carbidopa/Levodopa, Patient is seen by the neurologist at the [facility], patient chest x-ray showed pneumonia most likely CAP, patient is being treated with ceftriaxone and Zithromax, will continue patient home meds. will have PT/OT evaluate the patient. Repeat chest x-ray did not show any pneumonia, however there was concern about mild CHF which was resolved in the repeat chest x-ray however family is concerned about the mild CHF on x-ray will give 1 time IV Lasix and monitor, right knee x-ray showed severe OA, will consult an orthopedic, right wrist and ankle x-ray did not show any acute injury, patient family present, gave updates and answered all the questions. Review of Systems Review of Systems: All systems reviewed & are unremarkable except as noted in HPI and below Exam Narrative: Patient is comfortable, NAD HEENT: eyes are clear and none icteric LUNGS: Bilateral fair entry with rhonchi HEART: RR S1S2 ABD: BS+, Soft and nontender Lower extremities: no edema SKIN: nonjaundiced Neuro: grossly intact. Objective Data Vital Signs Vital Signs: Vital Signs - 24 hr 08/08/25 20:00 08/08/25 20:20 08/08/25 20:25 Temperature 36.6 C Pulse Rate 106 H 90 Respiratory Rate 37 H 20 Blood Pressure 146/48 H Pulse Oximetry 93 94 Oxygen Delivery Room Air Autopap 08/09/25 00:00 08/09/25 04:00 08/09/25 05:32 Temperature 36.6 C Pulse Rate 88 82 82 Respiratory Rate 20 Blood Pressure 146/50 H Pulse Oximetry 95 Oxygen Delivery 08/09/25 08:00 08/09/25 10:10 08/09/25 11:36 Temperature Pulse Rate 74 Respiratory Rate Blood Pressure Pulse Oximetry Oxygen Delivery Room Air Room Air 08/09/25 12:00 08/09/25 14:00 Temperature 37.1 C Pulse Rate 74 73 Respiratory Rate 24 H Blood Pressure 144/47 H Pulse Oximetry 94 Oxygen Delivery Intake/Output Intake/Output: Intake & Output 08/06/25 08/07/25 08/08/25 08/09/25 23:59 23:59 23:59 23:59 Intake Total 106 636 0002.7 Output Total 475 100 Balance 309 655 0811.7 Meds/Results Medications: Active Medications Generic Name Dose Route Start Last Admin Trade Name Freq PRN Reason Stop Dose Admin Acetaminophen 650 mg 08/08/25 15:54 08/09/25 10:20 Acetaminophen 325 Mg Tablet PO 650 mg Q4H PRN Administration Pain Rated 1-3 Albuterol 2 puff 08/08/25 09:01 Albuterol Sulfate (*Sp) Aerosol 1 Puff INHALATION Q4HRT PRN Shortness Of Breath Or Wheezing Alprazolam 0.5 mg 08/08/25 15:54 08/08/25 16:04 Alprazolam (*Crx) 0.5 Mg Tablet PO 0.5 mg TID PRN Administration Anxiety Amantadine HCl 100 mg 08/08/25 13:50 08/09/25 13:12 Amantadine Hcl 100 Mg Capsule PO 100 mg TID DALE Administration Carbidopa/Levodopa 2 tablet 08/08/25 13:35 08/09/25 13:12 Carbidopa/Levodopa 25/250 Mg Tablet PO 2 tablet TID@0900,1200,1700 DALE Administration Carbidopa/Levodopa 1 tablet 08/08/25 13:40 08/09/25 13:12 Carbidopa/Levodopa 12.5/125 Mg Tablet PO 1 tablet TID@0900,1200,1700 DALE Administration Carbidopa/Levodopa 8 tablet 08/08/25 21:00 08/08/25 23:01 Carbidopa/Levodopa 25/100 Mg Cr Tablet PO 8 tablet HS DALE Administration Fluticasone Propionate 2 spray 08/08/25 09:01 Fluticasone Propionate 0.05% Na Spr 16 Gm Btl (*Bkc) NASAL PRN PRN allergies Gabapentin 600 mg 08/08/25 21:00 08/08/25 21:59 Gabapentin 300 Mg Capsule PO 600 mg QHS DALE Administration Guaifenesin 600 mg 08/08/25 09:15 08/09/25 10:09 Guaifenesin 12 Hr 600 Mg Tabcr PO 600 mg Q12HR DALE Administration Sodium Chloride 1,000 mls @ 100 mls/hr 08/08/25 16:35 08/09/25 14:24 Normal Saline Iv IV CONT 100 mls/hr .Q10H DALE Administration Polyethylene Glycol 17 gm 08/08/25 09:15 08/09/25 10:09 Polyethylene Glycol 3350 17 Gm Powd.Pack PO 17 gm QAM DALE Administration Pramipexole Dihydrochloride 1 mg 08/08/25 09:15 08/09/25 13:12 Pramipexole 1 Mg Tablet PO 1 mg TID DALE Administration Senna/Docusate Sodium 2 tab 08/08/25 09:15 08/09/25 10:09 Senna/Docusate Sodium Tablet PO 2 tab BID DALE Administration Sertraline HCl 25 mg 08/08/25 09:15 08/09/25 10:09 Sertraline Hcl 25 Mg Tablet PO 25 mg DAILY DALE Administration Tizanidine HCl 4 mg 08/08/25 09:20 08/09/25 10:09 Tizanidine Hcl 4 Mg Tablet PO 4 mg BID DALE Administration Trazodone HCl 100 mg 08/08/25 21:00 08/08/25 21:59 Trazodone Hcl 50 Mg Tablet PO 100 mg QHS DALE Administration Radiology Results: ITS Impressions Knee X-Ray 08/07/25 18:51 IMPRESSION: 1. No acute bony lesions. 2 osteopenic bones. Severe arthritis predominantly of patellofemoral joint. Please correlate with DEXA densitometry. 3 if symptoms are localized and persistent, MRI is indicated. Head CT 08/07/25 20:28 IMPRESSION: 1. No acute findings in the limited noncontrast CT head. Venous Doppler Study 08/07/25 20:49 IMPRESSION: 1. No deep venous thrombosis in the right lower extremity veins.. Chest X-Ray 08/08/25 16:44 Impression: No acute cardiopulmonary abnormality. Ankle X-Ray 08/09/25 14:44 Impression: No acute fracture or malalignment. Wrist X-Ray 08/09/25 14:44 Impression: No acute fracture or malalignment. Labs Labs: Laboratory Results - last 24 hr 08/08/25 08/09/25 22:08 06:54 WBC 12.3 H RBC 3.94 L Hgb 11.5 L Hct 35.9 L MCV 91.1 MCH 29.2 MCHC 32.0 RDW 12.9 Plt Count 163 MPV 11.6 H Sodium 136 L Potassium 3.4 Chloride 105 Carbon Dioxide 27 Anion Gap 4 BUN 15 Creatinine 0.72 Estim Creat Clear Calc 98 Estimated GFR > 60 Glucose 111 H POC Capillary Glucose 142 H Calcium 7.9 L Magnesium 2.0 Total Bilirubin 1.0 AST 32 ALT < 6 L Alkaline Phosphatase 56 Total Protein 5.8 L Albumin 3.1 L Quality VTE Prophylaxis VTE prophylaxis: mechanical ordered
[2025-08-09] MEDS: FUROSEMIDE INJ 40 MG/4 ML VIAL IV PUSH (17:20)
[2025-08-09] MEDS: diazePAM INJ (*CRX) 10 MG/2 ML SYRINGE 5 MG IV PUSH ×2 (17:25→17:36)
[2025-08-09] MEDS: levETIRAcetam 1000MG/NACL100ML 1,000 MG/100 ML BAG 400 MG IVPB (17:31)
[2025-08-09] MEDS: MIDAZOLAM HCL (*CRX) 2 MG/2 ML VIAL 5 MG IV PUSH (17:53)
[2025-08-09] MEDS: ETOMIDATE 40 MG/20 ML VIAL 20 MG IV PUSH (17:57)
[2025-08-09] MEDS: ROCURONIUM BROMIDE 50 MG/5 ML VIAL 100 MG IV PUSH (17:58)
[2025-08-09] MEDS: FENTANYL 2,500MCG/NS250ML(*CRX 2,500 MCG/250 ML BAG 7.5 MCG IV CONT (18:25)
[2025-08-09] MEDS: PROPOFOL IV EMULSION 100 ML 22.45 MG IV CONT (18:25)
[2025-08-09] MEDS: MIDAZOLAM 100MG/NS 100ML(*CRX) 100 MG/100 ML BAG IV CONT (18:25)
[2025-08-09] MEDS: FENTANYL 2,500MCG/NS250ML(*CRX 2,500 MCG/250 ML BAG 7.5 MCG (18:26)
--- NOTE | 2025-08-09 18:30 | P.PCNBEDED_ITS ---
Procedures Intubation Intubation Date: 08/09/25 Intubation Time: 18:30 Consent: emergent Sedative: etomidate Mg given: 20 Paralytic: rocuronium Mg given: 100 Laryngoscope: fiber optic video scope ET tube size: 7.5 Tube secured depth (cm): 26 Tube secured location: lips Tube placement confirmation: visualized tube passing through cords, no breath sounds over epigastrium and confirmation by capnometry Patient tolerated procedure: well and no complications Intubation complications: none Other Procedures Procedure 1: Other Procedure: Critical care time: 31 min I did arrived to bedside, patient was thrashing, requiring several people to hold him down, completely altered, I am concerned for possible seizure versus agitated delirium, possible intracranial hemorrhage. Did obtain blood sugar which was within acceptable limits. Patient had no IV access, L AC 20g was placed at bedside by [employer]GER, flashback and flushes well, 5 mg Versed given as patient was thrashing around, after this he he was much more relaxed allowing me to set up for intubation. See intubation note. OG-tube placed by myself. Chest x-ray ordered, on my independent interpretation OGT in place, ET tube is above allie though could potentially be withdrawn a couple cm, updated ICU/RT and they will wait for radiology interpretation. I did recommend CT brain noncontrast stat, starting patient on Versed and fentanyl drips, with a push of fentanyl. Care under Dr Reese who was at bedside and will be updating Dr Roa ICU
[2025-08-09] MEDS: fentaNYL CITRATE INJ (*CRX) 100 MCG/2 ML VIAL 50 MCG IV PUSH (18:49)
[2025-08-09] MEDS: ACETAMINOPHEN ELIXIR 325 MG/10.15 ML UDC 650 MG PO (19:02)
--- NOTE | 2025-08-09 19:12 | PC.NURSE ---
Patient pushed call light and requested nurse. Patient complaining of shortness of breath. Called rapid response and 17:30pm. Vitals documented. Patient was placed on non-rebreather mask. Patient was having labored breathing. Gave total of 10 mg of diazapam, and 1 Gram of Keppra. No success of calming the patient. Patient was taken down to ICU.
[2025-08-09 19:20] LABS: Creatine Kinase 371 U/L (55-170)
[2025-08-09 19:43] LABS: Alveolar/Arterial O2 Gradient 204.8 mmHg; Carboxyhemoglobin 0.9 % THb (0-2.0); Fractional Inspired Oxygen 50 %; HCO3 ABG 25.0 mEq/l (22.0-26.0); Methemoglobin ABG 0.1 %THb (0-1.5); Oxygen Content ABG 16.7 %vol (16.0-22.0); Oxygen Saturation ABG 97.1 % (95.0-100.0); PCO2 ABG 36.9 mmHg (35.0-45.0); PO2 ABG 88.7 mmHg (80.0-100.0); PO2 FiO2 Ratio Arterial Blood 1.77 %; Reduced Hemoglobin 2.7 %THb (0-5.0)
[2025-08-09 19:46] LABS: Procalcitonin 0.9 ng/mL
[2025-08-09 20:43] LABS: Arterial Blood Gas Tidal Volume 500 ml; Arterial Blood Gas Ventilator rate 20 /MIN; Modified Allen's Test Pass; Site Drawn LEFT RADIAL
[2025-08-09] MEDS: GABAPENTIN 300 MG CAPSULE 600 MG PO (21:59)
[2025-08-09] MEDS: MINERAL OIL/WHITE PETROLATUM OINTMENT 1 APPLIC EACH EYE (22:00)
[2025-08-09] MEDS: PROPOFOL IV EMULSION 100 ML 14.96 MG IV CONT (22:19)
[2025-08-09 22:32] LABS: Add Urine Microscopic? YES; Appearance Urine Clear (Clear); Glucose Urine UA Negative (Negative); Leukocyte Esterase Ur Trace LEU/UL (Negative); Need Manual Microscopic Reviewed; Nitrate Urine Negative (Negative); Specific Grav Ur 1.020 (1.001-1.035)
[2025-08-10] VITALS (41 sets, daily range): BP systolic 118–172; BP diastolic 45–90; PULSE 59–95; RESP 18–26; TEMP 36.7–39.6; O2SAT 96–100; BMI 45.6
[2025-08-10] MEDS: CARBIDOPA/LEVODOPA 25/100 MG TABLET 2 TABLET FEED TUBE ×5 (00:13→23:30)
[2025-08-10 04:28] LABS: Hematocrit 37.2 % (42.0-52.0); Hemoglobin 11.6 g/dL (14.0-18.0); Mean Corpuscular HGB Conc 31.2 g/dl (32-36); Mean Corpuscular Hemoglobin 28.8 pg (26-34); Mean Corpuscular Volume 92.3 fl (80-100); Platelet Count Result 146 k/mm3 (150-375); Red Blood Count 4.03 M/mm3 (4.6-6.20); White Blood Count 11.6 K/mm3 (4.5-10.0)
[2025-08-10 05:04] LABS: Alveolar/Arterial O2 Gradient 218.6 mmHg; Carboxyhemoglobin 0.4 % THb (0-2.0); Fractional Inspired Oxygen 50 %; HCO3 ABG 22.9 mEq/l (22.0-26.0); Methemoglobin ABG 0.0 %THb (0-1.5); Oxygen Content ABG 17.0 %vol (16.0-22.0); Oxygen Saturation ABG 98.2 % (95.0-100.0); PCO2 ABG 30.0 mmHg (35.0-45.0); PO2 ABG 104.2 mmHg (80.0-100.0); PO2 FiO2 Ratio Arterial Blood 2.08 %; Reduced Hemoglobin 1.8 %THb (0-5.0)
[2025-08-10 05:06] LABS: Modified Allen's Test Pass; Site Drawn RIGHT RADIAL
[2025-08-10 05:07] LABS: Arterial Blood Gas Tidal Volume 500 ml; Arterial Blood Gas Ventilator rate 20 /MIN
[2025-08-10 06:22] LABS: Alanine Aminotransferase 8 U/L (6-50); Albumin Level 3.2 g/dL (3.5-5.1); Alkaline Phosphatase 145 U/L (38-126); Anion Gap 5 mmol/L (4-12); Aspartate Amino Transferase 30 U/L (17-59); Bilirubin,Total 0.7 mg/dL (0.2-1.3); Blood Urea Nitrogen 17 mg/dL (9-20); Calcium 8.1 mg/dL (8.4-10.2); Carbon Dioxide 27 mmol/L (22-30); Chloride 104 mmol/L (98-107); Estimated CRCL calculation 103 ml/min; Estimated Glomerular Filt Rate > 60; Glucose 125 mg/dL (65-110); Magnesium 2.0 mg/dL (1.6-2.3); Potassium 3.1 mmol/L (3.4-5.0); Sodium 136 mmol/L (137-145); Total Protein 6.1 g/dL (6.3-8.2)
[2025-08-10] MEDS: PROPOFOL IV EMULSION 100 ML 7.48 MG IV CONT (06:47)
[2025-08-10 09:15] LABS: NT Pro B Type Natriuretic Pept 1530 pg/mL (19.9-100)
[2025-08-10] MEDS: FUROSEMIDE INJ 40 MG/4 ML VIAL IV PUSH ×2 (10:32→23:30)
[2025-08-10] MEDS: PRAMIPEXOLE 1 MG TABLET FEED TUBE ×3 (10:32→17:22)
[2025-08-10] MEDS: PANTOPRAZOLE SODIUM IV 40 MG VIAL IV PUSH (10:32)
[2025-08-10] MEDS: SENNA/DOCUSATE SODIUM TABLET 2 TAB FEED TUBE ×2 (10:32→17:22)
[2025-08-10] MEDS: POTASSIUM CHLORIDE 20 MEQ PACKET (FOR LIQUID) 40 MEQ FEED TUBE ×2 (10:33→13:41)
[2025-08-10] MEDS: ENOXAPARIN 40 MG/0.4 ML SYRINGE SUB-Q (10:36)
[2025-08-10] MEDS: cefTRIAXone 1 GM in SODIUM CHLORIDE 0.9% IV 50 ML 100 ML IVPB (10:36)
[2025-08-10] MEDS: MINERAL OIL/WHITE PETROLATUM OINTMENT 1 APPLIC EACH EYE ×2 (10:38→20:21)
--- NOTE | 2025-08-10 10:55 | WPDCNINT2 ---
Assessment and Plan Assessment and plan (1) Acute respiratory failure: Code(s): J96.00 - Acute respiratory failure, unspecified whether with hypoxia or hypercapnia Status: Acute Assessment and Plan: Patient now intubated and sedated ABG reviewed. I will decrease tidal volume to 400 and rate to 18 Continue propofol for sedation. Will discontinue fentanyl and Versed Lasix IV for congestive heart failure (2) Parkinson disease: Qualifiers: Dyskinesia presence: unspecified whether dyskinesia Fluctuating manifestations: unspecified whether manifestations fluctuate Qualified Code(s): G20.A1 - Parkinson's disease without dyskinesia, without mention of fluctuations Code(s): G20 - Parkinson's disease Status: Acute Assessment and Plan: Continue levodopa carbidopa by enteral tube Continue amantadine and Mirapex (3) Congestive heart failure: Code(s): I50.9 - Heart failure, unspecified Status: Acute Assessment and Plan: Patient has edema on exam and echo shows diastolic dysfunction. I checked a BNP and was elevated I will give patient Lasix IV (4) UTI (urinary tract infection): Code(s): N39.0 - Urinary tract infection, site not specified Status: Acute Assessment and Plan: Check urine culture and continue Rocephin (5) Agitation: Code(s): R45.1 - Restlessness and agitation Status: Acute Assessment and Plan: Not sure of the episode of agitation that patient had yesterday he appears to be confused and agitated and which could be delirium peer head CT was negative Currently sedated with propofol Plan DVT prophylaxis -Lovenox Stress ulcer prophylaxis -PPI Nutrition -start Tube Feeds Code Status - Full Code Total Critical Care Time - 30 minutes Due to a high probability of clinically significant, life threatening deterioration, the patient required my highest level of preparedness to intervene emergently and I personally spent this critical care time directly and personally managing the patient. This critical care time included obtaining a history; examining the patient; pulse oximetry; ordering and review of studies; arranging urgent treatment with development of a management plan; evaluation of patient's response to treatment; frequent reassessment; and discussions with other providers. It was exclusive of separately billable procedures and treating other patients and teaching time. Please see Assessment and Plan section and the rest of the note for further information on patient assessment and treatment Form Layer Consult Note Consult date: 08/10/25 Reason for consult: Acute respiratory failure, HPI: Ori Bernardo is a 75 year old male past medical history of severe Parkinson's disease was admitted on 08/08 to [facility] with chief complaint of fall. He also reported worsening cognition condition and fatigue over a week who. Patient also reports some shortness of breath and malaise. He was initially suspected to having community-acquired pneumonia and was started on antibiotics. Neurology was consulted but no med change was made in his Parkinson's medications. Patient was also given a dose of Lasix. Yesterday evening patient was agitated and thrashing as per staff. Patient was suspected to be in agitated delirium. He was intubated by the ER physician and then transferred to ICU. During my evaluation patient is now intubated and sedated with propofol Workup done post intubation showed WBC 11.6 ABG 7.4/36/88/25 Potassium level was low this morning UA suggestive of UTI Head CT was negative for acute change CT chest abdomen pelvis showed IMPRESSION: 1. Limited noncontrast examination is not optimal to evaluate solid viscera, vascular structures and neoplasms. 2. No acute pulmonary findings. Minimal platelike atelectasis of lung bases. 3. Tip of the endotracheal tube is low in position, just above the allie. Please reposition this ET tube more proximally by approximately 2.5 to 3 cm. 4. No acute findings in the abdomen and pelvis. Other findings as mentioned above. Review of Systems Review of Systems: ROS unobtainable: Yes unobtainable due to endotracheal tube, unobtainable due to medical condition and unobtainable due to mental status PMFSH Past Medical History Medical History Left leg DVT not currently on anticoagulation Unspecified abnormalities of gait and mobility Other malaise COVID-19 Pulmonary embolism Elliquis discontinued after 6-8 weeks Lymphedema KYLE on CPAP Extrinsic asthma, unspecified Asthma Esophageal reflux Non-recurrent bilateral inguinal hernia without obstruction or gangrene Parkinson disease Surgical History Surgical History H/O hernia repair History of ear surgery (~11/2017) Implant - Lt Ear History of surgery on arm (~1998) Muscle Tear - Rt History of removal of cyst (~11/29/17) Rt Testicle History of tooth extraction Family History Family History Father Diabetes mellitus Mother Hypertension Family history of kidney disease Family history of renal failure Sibling Asthma Family history of malignant neoplasm Family history of seizure disorder Family history of sudden , Onset Age: 57 Family history of congestive heart failure, Onset Age: 57 Protein S deficiency Social History Social History Social History: Retired. He is . His has dementia and was just placed into memory care. 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 [place] Smoking status: Never smoker Second hand tobacco smoke exposure: No Alcohol intake: former Substance use: former Substance use type: does not use Lack of Transportation: No Lack of Food: Never True Current Housing: I Have Housing Concerned About Future Housing: No Difficulty Paying Gas/Electric Bills: No Difficulty Paying for Meds: No Currently Unemployed: No Education: Associate Degree Difficulty w/ Childcare or Family Care: No Living arrangements: assisted living Additional living arrangements comments: [facility] Occupation/Education: retired Gender identity (if verbalized by the patient): Male Sexual Orientation (if Verbalized by the Patient): Straight or Heterosexual Spiritual care concerns: No Agree to blood products: Yes Meds Home Medications and Allergies Home Medications ?Medication ?Instructions ?Recorded ?Confirmed ?Type pramipexole 1 mg tablet (Mirapex) 1 mg PO TID 09/29/22 08/08/25 History vibegron 75 mg tablet (Gemtesa) 75 mg PO DAILY 06/25/24 08/08/25 History amantadine HCl 100 mg capsule 100 mg PO TID #90 caps 07/10/24 08/08/25 Rx fluticasone propionate 50 2 spray intranasal PRN PRN 07/10/24 08/08/25 Rx mcg/actuation nasal allergies #1 spray spray,suspension (Flonase Allergy Relief) gabapentin 600 mg tablet 600 mg PO QHS #30 tabs 07/10/24 08/08/25 Rx guaifenesin 600 mg tablet, 600 mg PO Q12HR #60 tabs 07/10/24 08/08/25 Rx extended release 12 hr (Mucus Relief ER) polyethylene glycol 3350 17 gram 17 g PO QAM #30 ea 07/10/24 08/08/25 Rx oral powder packet (Miralax) sennosides 8.6 mg-docusate sodium 2 tab PO BID #60 tabs 07/10/24 08/08/25 Rx 50 mg tablet tizanidine 4 mg tablet 4 mg PO BID muscle spasticity #180 07/10/24 08/08/25 Rx tabs trazodone 100 mg tablet 100 mg PO QHS #30 tabs 07/10/24 08/08/25 Rx albuterol sulfate 90 mcg/actuation 2 inh inhalation Q4H PRN shortness 11/17/24 08/08/25 Rx aerosol inhaler of breath or wheezing #8.5 grams inhalational spacing device #1 ea 11/17/24 08/09/25 Rx (BreatheRite MDI Spacer) fluticasone fur. 100 mcg-umeclid 100-62.5-25 mcg Blister With 02/13/25 08/08/25 Sample 62.5 mcg-vilant 25 mcg Device#2 Samples inhalat.powder (Trelegy Ellipta) sertraline 25 mg tablet 25 mg PO DAILY #30 tabs 03/20/25 08/08/25 Rx carbidopa ER 50 mg-levodopa 200 mg 4 tablet PO HS 08/07/25 08/08/25 History tablet,extended release carbidopa 25 mg-levodopa 250 mg 2.5 tablet PO TID 08/08/25 08/08/25 History tablet Allergies Allergy/AdvReac Type Severity Reaction Status Date / Time No Known Allergies Allergy Verified 08/08/25 00:04 Vital Signs Vital Signs - 24 hr 08/09/25 11:36 08/09/25 12:00 08/09/25 14:00 Temperature 37.1 C Pulse Rate 74 73 Respiratory Rate 24 H Blood Pressure 144/47 H Pulse Oximetry 94 Oxygen Delivery Room Air Fraction of Inspired Oxygen 08/09/25 16:00 08/09/25 17:15 08/09/25 17:30 Temperature Pulse Rate 82 109 H 108 H Respiratory Rate 42 H 22 H Blood Pressure 153/97 H Pulse Oximetry 99 100 Oxygen Delivery Non-Rebreather Mask Fraction of Inspired Oxygen 08/09/25 18:05 08/09/25 18:25 08/09/25 18:25 Temperature Pulse Rate 121 H 118 H 106 H Respiratory Rate 20 20 Blood Pressure Pulse Oximetry 95 Oxygen Delivery Mechanical Ventilation Fraction of Inspired Oxygen 50 08/09/25 18:25 08/09/25 18:26 08/09/25 19:00 Temperature 39.6 C H Pulse Rate 122 H 118 H 110 H Respiratory Rate 20 20 27 H Blood Pressure 160/66 H Pulse Oximetry 95 Oxygen Delivery Fraction of Inspired Oxygen 08/09/25 19:02 08/09/25 19:03 08/09/25 19:20 Temperature 39.6 C H Pulse Rate 97 84 Respiratory Rate 20 Blood Pressure Pulse Oximetry 96 Oxygen Delivery Mechanical Ventilation Fraction of Inspired Oxygen 50 08/09/25 19:20 08/09/25 20:00 08/09/25 20:00 Temperature 38.8 C H Pulse Rate 84 80 79 Respiratory Rate 20 20 20 Blood Pressure 128/49 L Pulse Oximetry 96 97 Oxygen Delivery Mechanical Ventilation Fraction of Inspired Oxygen 50 08/09/25 20:00 08/09/25 20:00 08/09/25 20:00 Temperature Pulse Rate 79 65 80 Respiratory Rate 20 20 Blood Pressure Pulse Oximetry 98 Oxygen Delivery Mechanical Ventilation Fraction of Inspired Oxygen 50 08/09/25 20:00 08/09/25 20:01 08/09/25 21:00 Temperature 38.7 C H 38.1 C H Pulse Rate 80 72 Respiratory Rate 20 20 Blood Pressure 143/52 H Pulse Oximetry 98 Oxygen Delivery Fraction of Inspired Oxygen 08/09/25 21:00 08/09/25 22:00 08/09/25 22:00 Temperature Pulse Rate 65 65 Respiratory Rate 20 20 Blood Pressure Pulse Oximetry Oxygen Delivery Fraction of Inspired Oxygen 50 08/09/25 22:00 08/09/25 22:00 08/09/25 22:17 Temperature 37.3 C Pulse Rate 59 L 60 59 L Respiratory Rate 20 20 20 Blood Pressure 139/52 L Pulse Oximetry 98 Oxygen Delivery Fraction of Inspired Oxygen 08/09/25 22:19 08/09/25 22:19 08/09/25 22:23 Temperature Pulse Rate 60 60 60 Respiratory Rate 20 20 Blood Pressure Pulse Oximetry Oxygen Delivery Fraction of Inspired Oxygen 08/09/25 23:00 08/09/25 23:15 08/09/25 23:20 Temperature Pulse Rate 65 60 60 Respiratory Rate 20 20 Blood Pressure 144/52 H Pulse Oximetry 98 98 Oxygen Delivery Mechanical Ventilation Fraction of Inspired Oxygen 50 08/09/25 23:49 08/09/25 23:52 08/10/25 00:00 Temperature Pulse Rate 61 60 Respiratory Rate 20 Blood Pressure Pulse Oximetry 98 Oxygen Delivery Mechanical Ventilation Fraction of Inspired Oxygen 50 50 08/10/25 00:00 08/10/25 00:00 08/10/25 00:00 Temperature 36.9 C Pulse Rate 60 60 60 Respiratory Rate 20 20 20 Blood Pressure 143/50 H Pulse Oximetry 98 Oxygen Delivery Fraction of Inspired Oxygen 08/10/25 00:00 08/10/25 01:00 08/10/25 02:00 Temperature 36.8 C Pulse Rate 61 59 L 64 Respiratory Rate 20 20 20 Blood Pressure 148/52 H Pulse Oximetry 98 Oxygen Delivery Fraction of Inspired Oxygen 08/10/25 02:00 08/10/25 02:00 08/10/25 02:00 Temperature Pulse Rate 60 60 59 L Respiratory Rate 20 20 Blood Pressure Pulse Oximetry Oxygen Delivery Fraction of Inspired Oxygen 08/10/25 02:00 08/10/25 02:00 08/10/25 03:00 Temperature 36.7 C 36.8 C Pulse Rate 59 L 68 68 Respiratory Rate 20 20 Blood Pressure 137/58 L 172/66 H Pulse Oximetry 98 96 100 Oxygen Delivery Mechanical Ventilation Fraction of Inspired Oxygen 50 08/10/25 03:08 08/10/25 03:45 08/10/25 04:00 Temperature 36.9 C Pulse Rate 69 69 63 Respiratory Rate 21 H 20 20 Blood Pressure 126/46 L Pulse Oximetry 100 98 Oxygen Delivery Mechanical Ventilation Fraction of Inspired Oxygen 50 08/10/25 04:00 08/10/25 04:00 08/10/25 04:00 Temperature Pulse Rate 63 60 Respiratory Rate 20 Blood Pressure Pulse Oximetry Oxygen Delivery Fraction of Inspired Oxygen 50 08/10/25 04:00 08/10/25 04:00 08/10/25 05:00 Temperature 36.9 C Pulse Rate 60 62 65 Respiratory Rate 20 20 20 Blood Pressure 148/53 H Pulse Oximetry 99 Oxygen Delivery Fraction of Inspired Oxygen 08/10/25 05:08 08/10/25 06:00 08/10/25 06:00 Temperature 36.9 C Pulse Rate 65 63 66 Respiratory Rate 20 Blood Pressure 143/55 H Pulse Oximetry 99 98 Oxygen Delivery Mechanical Ventilation Fraction of Inspired Oxygen 50 08/10/25 06:00 08/10/25 06:00 08/10/25 06:00 Temperature Pulse Rate 62 62 63 Respiratory Rate 20 20 20 Blood Pressure Pulse Oximetry Oxygen Delivery Fraction of Inspired Oxygen 08/10/25 06:47 08/10/25 06:47 08/10/25 07:00 Temperature 36.9 C Pulse Rate 68 68 64 Respiratory Rate 20 20 20 Blood Pressure 133/50 L Pulse Oximetry 98 Oxygen Delivery Fraction of Inspired Oxygen 08/10/25 07:29 08/10/25 07:48 08/10/25 08:00 Temperature Pulse Rate 69 71 67 Respiratory Rate 26 H 20 Blood Pressure Pulse Oximetry 99 Oxygen Delivery Mechanical Ventilation Fraction of Inspired Oxygen 50 08/10/25 09:00 08/10/25 10:00 Temperature Pulse Rate 65 67 Respiratory Rate 18 Blood Pressure Pulse Oximetry 98 Oxygen Delivery Mechanical Ventilation Fraction of Inspired Oxygen 50 Exam Narrative: General: Pt is sedated, intubated and on mechanical ventilation Lungs/Chest: Trachea central Coarse BS B/L, No crackles or wheezing. Cardiac: RRR. Normal S1 S2. No murmurs Circulation: Pedal pulses are intact and symmetrical. Abdomen: Decreased bowel sounds. Obese. Soft. NT. ND. Extremities: No clubbing, cyanosis, mild pedal edema present : Brower in place Neurologic: Unable to assess due to sedation. Moves all 4 extremities to painful stimuli. PERRL Results Labs 08/10/25 04:24 08/10/25 05:26 Labs: Short CBC 08/10/25 Range/Units 04:24 WBC 11.6 H (4.5-10.0) K/mm3 Hgb 11.6 L (14.0-18.0) g/dL Hct 37.2 L (42.0-52.0) % Plt Count 146 L (150-375) k/mm3 BMP 08/10/25 05:26 Sodium 136 L Potassium 3.1 L Chloride 104 Carbon Dioxide 27 BUN 17 Creatinine 0.70 Glucose 125 H Calcium 8.1 L Cardiac Enzymes 08/09/25 Range/Units 18:58 Total Creatine Kinase 371 H (55-170) U/L Liver Function 08/10/25 Range/Units 05:26 Total Bilirubin 0.7 (0.2-1.3) mg/dL AST 30 (17-59) U/L ALT 8 (6-50) U/L Alkaline Phosphatase 145 H (38-126) U/L Albumin 3.2 L (3.5-5.1) g/dL Urine 08/09/25 Range/Units 21:58 Urine Color Dark yellow (Yellow) Urine Appearance Clear (Clear) Urine pH 5.0 (5.0-9.0) Ur Specific Seth 1.020 (1.001-1.035) Urine Protein Negative (Negative) mg/dL Urine Glucose (UA) Negative (Negative) mg/dL
[2025-08-10] MEDS: ACETAMINOPHEN ELIXIR 325 MG/10.15 ML UDC 650 MG FEED TUBE (13:41)
[2025-08-10] MEDS: PROPOFOL IV EMULSION 100 ML 14.96 MG IV CONT ×2 (13:42→20:52)
[2025-08-10 16:53] LABS: Anion Gap 2 mmol/L (4-12); Blood Urea Nitrogen 17 mg/dL (9-20); Calcium 8.2 mg/dL (8.4-10.2); Carbon Dioxide 30 mmol/L (22-30); Chloride 105 mmol/L (98-107); Estimated CRCL calculation 97 ml/min; Estimated Glomerular Filt Rate > 60; Glucose 125 mg/dL (65-110); Potassium 3.8 mmol/L (3.4-5.0); Sodium 137 mmol/L (137-145)
[2025-08-11] VITALS (41 sets, daily range): BP systolic 118–153; BP diastolic 40–70; PULSE 64–109; RESP 17–27; TEMP 37.1–38.3; O2SAT 93–100
[2025-08-11] MEDS: PROPOFOL IV EMULSION 100 ML 22.45 MG IV CONT ×6 (03:09→21:54)
[2025-08-11 03:48] LABS: Hematocrit 37.6 % (42.0-52.0); Hemoglobin 12.1 g/dL (14.0-18.0); Mean Corpuscular HGB Conc 32.2 g/dl (32-36); Mean Corpuscular Hemoglobin 28.9 pg (26-34); Mean Corpuscular Volume 89.7 fl (80-100); Platelet Count Result 188 k/mm3 (150-375); Red Blood Count 4.19 M/mm3 (4.6-6.20); White Blood Count 11.0 K/mm3 (4.5-10.0)
[2025-08-11 03:59] LABS: Alanine Aminotransferase 10 U/L (6-50); Albumin Level 3.3 g/dL (3.5-5.1); Alkaline Phosphatase 62 U/L (38-126); Anion Gap 3 mmol/L (4-12); Aspartate Amino Transferase 26 U/L (17-59); Bilirubin,Total 0.5 mg/dL (0.2-1.3); Blood Urea Nitrogen 18 mg/dL (9-20); Calcium 8.4 mg/dL (8.4-10.2); Carbon Dioxide 30 mmol/L (22-30); Chloride 102 mmol/L (98-107); Estimated CRCL calculation 104 ml/min; Estimated Glomerular Filt Rate > 60; Glucose 143 mg/dL (65-110); Magnesium 2.2 mg/dL (1.6-2.3); Potassium 3.5 mmol/L (3.4-5.0); Sodium 135 mmol/L (137-145); Total Protein 6.2 g/dL (6.3-8.2)
[2025-08-11] MEDS: CARBIDOPA/LEVODOPA 25/100 MG TABLET 2 TABLET FEED TUBE ×3 (04:16→20:01)
[2025-08-11 04:41] LABS: Alveolar/Arterial O2 Gradient 168.9 mmHg; Carboxyhemoglobin 0.4 % THb (0-2.0); Fractional Inspired Oxygen 40 %; HCO3 ABG 25.2 mEq/l (22.0-26.0); Methemoglobin ABG 0.3 %THb (0-1.5); Oxygen Content ABG 17.2 %vol (16.0-22.0); Oxygen Saturation ABG 95.4 % (95.0-100.0); PCO2 ABG 37.4 mmHg (35.0-45.0); PO2 ABG 73.3 mmHg (80.0-100.0); PO2 FiO2 Ratio Arterial Blood 1.83 %; Reduced Hemoglobin 4.4 %THb (0-5.0)
[2025-08-11 04:45] LABS: Arterial Blood Gas Tidal Volume 400 ml; Arterial Blood Gas Ventilator rate 18 /MIN; Modified Allen's Test Pass; Site Drawn RIGHT RADIAL
[2025-08-11] MEDS: FUROSEMIDE INJ 100 MG/10 ML VIAL 80 MG IV PUSH ×2 (08:00→15:17)
[2025-08-11] MEDS: POTASSIUM CHLORIDE 20 MEQ PACKET (FOR LIQUID) 40 MEQ FEED TUBE ×2 (08:00→14:11)
--- NOTE | 2025-08-11 08:40 | WPDINTPN2 ---
Assessment and Plan Assessment and Plan (1) Acute respiratory failure: Code(s): J96.00 - Acute respiratory failure, unspecified whether with hypoxia or hypercapnia Status: Acute Assessment and Plan: Acute respiratory failure secondary to altered mental status and pulmonary edema Patient now intubated and sedated ABG reviewed. I will decrease tidal volume to 400 and rate to 16 Continue propofol for sedation. Continue Lasix IV for congestive heart failure I want to diurese him more and get more fluid off before trying weaning (2) Parkinson disease: Qualifiers: Dyskinesia presence: unspecified whether dyskinesia Fluctuating manifestations: unspecified whether manifestations fluctuate Qualified Code(s): G20.A1 - Parkinson's disease without dyskinesia, without mention of fluctuations Code(s): G20 - Parkinson's disease Status: Acute Assessment and Plan: Continue levodopa carbidopa by enteral tube Continue Mirapex amantadine is on hold since is cannot be given through the tube (3) Congestive heart failure: Code(s): I50.9 - Heart failure, unspecified Status: Acute Assessment and Plan: Patient has edema on exam and echo shows diastolic dysfunction. I checked a BNP and was elevated Continuet Lasix IV (4) UTI (urinary tract infection): Code(s): N39.0 - Urinary tract infection, site not specified Status: Acute Assessment and Plan: Check urine culture and continue Rocephin (5) Agitation: Code(s): R45.1 - Restlessness and agitation Status: Acute Assessment and Plan: Not sure of the episode of agitation that patient had yesterday he appears to be confused and agitated and which could be delirium peer head CT was negative Currently sedated with propofol (6) Electrolyte abnormality: Code(s): E87.8 - Other disorders of electrolyte and fluid balance, not elsewhere classified Status: Acute Assessment and Plan: Replace low K Plan DVT prophylaxis -Lovenox Stress ulcer prophylaxis -PPI Nutrition -continue Tube Feeds Code Status - Full Code I spoke to and updated patient's and daughter at bedside yesterday and answered all their questions. Total Critical Care Time - 30 minutes Due to a high probability of clinically significant, life threatening deterioration, the patient required my highest level of preparedness to intervene emergently and I personally spent this critical care time directly and personally managing the patient. This critical care time included obtaining a history; examining the patient; pulse oximetry; ordering and review of studies; arranging urgent treatment with development of a management plan; evaluation of patient's response to treatment; frequent reassessment; and discussions with other providers. It was exclusive of separately billable procedures and treating other patients and teaching time. Please see Assessment and Plan section and the rest of the note for further information on patient assessment and treatment Subjective Date/time seen: 08/11/25 Overnight events reviewed. Afebrile Continues to be on mechanical ventilation 40% Good urine output response to light Continues to be sedated with propofol Tolerating tube feed Other Vitals acceptable Review of Systems Review of Systems: ROS unobtainable: Yes unobtainable due to endotracheal tube, unobtainable due to medical condition and unobtainable due to mental status Exam Narrative: General: Pt is sedated, intubated and on mechanical ventilation Lungs/Chest: Trachea central Coarse BS B/L, No crackles or wheezing. Cardiac: RRR. Normal S1 S2. No murmurs Circulation: Pedal pulses are intact and symmetrical. Abdomen: Decreased bowel sounds. Obese. Soft. NT. ND. Extremities: No clubbing, cyanosis, mild pedal edema present : Brower in place Neurologic: Unable to assess due to sedation. Moves all 4 extremities to painful stimuli. PERRL. On holding sedation he follows command Objective Data Vital Signs Vital Signs: Vital Signs - 24 hr 08/10/25 09:00 08/10/25 09:00 08/10/25 10:00 Temperature 37.1 C Pulse Rate 65 64 67 Respiratory Rate 18 18 Blood Pressure 125/48 L Pulse Oximetry 98 98 Oxygen Delivery Mechanical Ventilation Fraction of Inspired Oxygen 40 08/10/25 10:00 08/10/25 10:00 08/10/25 11:00 Temperature 37.1 C 37.2 C Pulse Rate 67 66 61 Respiratory Rate 18 19 Blood Pressure 131/51 L 130/49 L Pulse Oximetry 98 98 Oxygen Delivery Fraction of Inspired Oxygen 08/10/25 11:30 08/10/25 12:00 08/10/25 12:00 Temperature Pulse Rate 62 Respiratory Rate Blood Pressure Pulse Oximetry 97 Oxygen Delivery Mechanical Ventilation Mechanical Ventilation Fraction of Inspired Oxygen 40 50 08/10/25 12:00 08/10/25 12:00 08/10/25 12:00 Temperature 37.2 C Pulse Rate 67 92 92 Respiratory Rate 23 H 23 H Blood Pressure 128/52 L Pulse Oximetry 97 Oxygen Delivery Fraction of Inspired Oxygen 08/10/25 13:00 08/10/25 13:42 08/10/25 13:42 Temperature 37.4 C Pulse Rate 69 69 69 Respiratory Rate 19 21 H 21 H Blood Pressure 122/50 L Pulse Oximetry 98 Oxygen Delivery Fraction of Inspired Oxygen 08/10/25 14:00 08/10/25 14:00 08/10/25 14:00 Temperature 37.4 C Pulse Rate 69 69 69 Respiratory Rate 19 20 Blood Pressure 126/45 L Pulse Oximetry 97 Oxygen Delivery Fraction of Inspired Oxygen 08/10/25 14:12 08/10/25 15:00 08/10/25 16:00 Temperature 37.4 C Pulse Rate 67 69 Respiratory Rate 20 Blood Pressure 128/47 L Pulse Oximetry 99 97 Oxygen Delivery Mechanical Ventilation Mechanical Ventilation Fraction of Inspired Oxygen 40 08/10/25 16:00 08/10/25 16:00 08/10/25 16:00 Temperature 37.4 C Pulse Rate 68 68 Respiratory Rate 22 H 22 H Blood Pressure 125/50 L Pulse Oximetry 98 Oxygen Delivery Fraction of Inspired Oxygen 40 08/10/25 16:00 08/10/25 17:00 08/10/25 17:03 Temperature 37.2 C Pulse Rate 85 67 67 Respiratory Rate 18 Blood Pressure 130/49 L Pulse Oximetry 99 99 Oxygen Delivery Mechanical Ventilation Fraction of Inspired Oxygen 40 08/10/25 18:00 08/10/25 18:00 08/10/25 18:00 Temperature 37.2 C Pulse Rate 61 61 61 Respiratory Rate 18 18 Blood Pressure 126/48 L Pulse Oximetry 99 Oxygen Delivery Fraction of Inspired Oxygen 08/10/25 19:00 08/10/25 19:20 08/10/25 20:00 Temperature 37.2 C 37.2 C Pulse Rate 65 62 69 Respiratory Rate 22 H 26 H 20 Blood Pressure 127/50 L 131/50 L Pulse Oximetry 99 99 Oxygen Delivery Fraction of Inspired Oxygen 08/10/25 20:00 08/10/25 20:00 08/10/25 20:11 Temperature Pulse Rate 62 69 69 Respiratory Rate 18 20 Blood Pressure Pulse Oximetry 99 Oxygen Delivery Mechanical Ventilation Fraction of Inspired Oxygen 40 08/10/25 20:15 08/10/25 20:25 08/10/25 20:52 Temperature Pulse Rate 63 64 Respiratory Rate 22 H Blood Pressure Pulse Oximetry 99 Oxygen Delivery Mechanical Ventilation Fraction of Inspired Oxygen 40 40 08/10/25 20:52 08/10/25 21:00 08/10/25 22:00 Temperature 37.2 C Pulse Rate 64 62 63 Respiratory Rate 22 H 18 Blood Pressure 127/48 L Pulse Oximetry 98 Oxygen Delivery Fraction of Inspired Oxygen 08/10/25 22:00 08/10/25 22:00 08/10/25 23:00 Temperature 37.2 C 37.2 C Pulse Rate 63 69 70 Respiratory Rate 18 18 25 H Blood Pressure 125/49 L 128/50 L Pulse Oximetry 99 98 Oxygen Delivery Fraction of Inspired Oxygen 08/10/25 23:30 08/10/25 23:52 08/10/25 23:56 Temperature Pulse Rate 67 95 Respiratory Rate 22 H Blood Pressure Pulse Oximetry 100 97 Oxygen Delivery Mechanical Ventilation Mechanical Ventilation Fraction of Inspired Oxygen 40 40 40 08/11/25 00:00 08/11/25 00:00 08/11/25 00:00 Temperature 37.1 C Pulse Rate 94 92 92 Respiratory Rate 24 H 18 Blood Pressure 153/70 H Pulse Oximetry 97 Oxygen Delivery Fraction of Inspired Oxygen 08/11/25 01:00 08/11/25 02:00 08/11/25 02:00 Temperature 37.3 C 37.4 C Pulse Rate 69 72 72 Respiratory Rate 18 24 H Blood Pressure 129/49 L 152/64 H Pulse Oximetry 99 100 Oxygen Delivery Fraction of Inspired Oxygen 08/11/25 02:00 08/11/25 02:15 08/11/25 02:15 Temperature Pulse Rate 75 69 70 Respiratory Rate 24 H 21 H Blood Pressure Pulse Oximetry 98 Oxygen Delivery Mechanical Ventilation Fraction of Inspired Oxygen 40 08/11/25 02:18 08/11/25 03:00 08/11/25 03:05 Temperature 37.4 C Pulse Rate 68 65 67 Respiratory Rate 26 H 20 22 H Blood Pressure 122/47 L Pulse Oximetry 96 98 Oxygen Delivery Mechanical Ventilation Fraction of Inspired Oxygen 40 08/11/25 03:09 08/11/25 04:00 08/11/25 04:00 Temperature Pulse Rate 68 71 Respiratory Rate 22 H 22 H Blood Pressure Pulse Oximetry Oxygen Delivery Fraction of Inspired Oxygen 40 08/11/25 04:00 08/11/25 04:00 08/11/25 04:12 Temperature 37.4 C Pulse Rate 69 73 70 Respiratory Rate 19 20 Blood Pressure 144/53 H Pulse Oximetry 97 97 Oxygen Delivery Mechanical Ventilation Fraction of Inspired Oxygen 40 08/11/25 04:48 08/11/25 05:00 08/11/25 06:00 Temperature 37.4 C Pulse Rate 72 74 68 Respiratory Rate 19 Blood Pressure 126/43 L Pulse Oximetry 99 99 Oxygen Delivery Mechanical Ventilation Fraction of Inspired Oxygen 40 08/11/25 06:00 08/11/25 06:06 08/11/25 06:06 Temperature 37.4 C Pulse Rate 69 66 68 Respiratory Rate 24 H 26 H 27 H Blood Pressure 123/44 L Pulse Oximetry 98 Oxygen Delivery Fraction of Inspired Oxygen 08/11/25 07:00 08/11/25 08:00 Temperature 37.4 C 37.4 C Pulse Rate 65 76 Respiratory Rate 18 25 H Blood Pressure 128/43 L 136/68 Pulse Oximetry 99 98 Oxygen Delivery Fraction of Inspired Oxygen Intake/Output Intake/Output: Intake & Output 08/08/25 08/09/25 08/10/25 08/11/25 23:59 23:59 23:59 23:59 Intake Total 882 2929.5 1007.9 1175.2 Output Total 886 787 6828 1650 Balance 407 2329.5 -892.1 -474.8 Meds/Results Medications: Active Medications Generic Name Dose Route Start Last Admin Trade Name Freq PRN Reason Stop Dose Admin Acetaminophen 650 mg 08/09/25 22:21 08/10/25 13:41 Acetaminophen Elixir 325 Mg/10.15 Ml Udc FEED TUBE 650 mg Q4H PRN Administration Fever Albuterol 2 puff 08/08/25 09:01 Albuterol Sulfate (*Sp) Aerosol 1 Puff INHALATION Q4HRT PRN Shortness Of Breath Or Wheezing Amantadine HCl 100 mg 08/10/25 09:00 08/10/25 10:37 Amantadine Hcl 100 Mg Capsule FEED TUBE Not Given On Hold: 08/10/25 12:13 TID DALE Bisacodyl 10 mg 08/11/25 07:45 Bisacodyl 10 Mg Suppository RECTAL QAM PRN Constipation Carbidopa/Levodopa 2 tablet 08/10/25 00:00 08/11/25 06:04 Carbidopa/Levodopa 25/100 Mg Tablet FEED TUBE 2 tablet DAILY@00,03,06,21 DALE Administration Dextrose 12.5 gm 08/09/25 18:34 Dextrose 50% 25 Gm/50 Ml Syringe IV PUSH PRN PRN Hypoglycemia Protocol Enoxaparin Sodium 40 mg 08/10/25 09:00 08/10/25 10:36 Enoxaparin 40 Mg/0.4 Ml Syringe SUB-Q 40 mg DAILY DALE Administration Fluticasone Propionate 2 spray 08/08/25 09:01 Fluticasone Propionate 0.05% Na Spr 16 Gm Btl (*Bkc) NASAL PRN PRN allergies Furosemide 80 mg 08/11/25 07:45 Furosemide Inj 100 Mg/10 Ml Vial IV PUSH 08/11/25 09:01 BID DALE Glucagon 1 mg 08/09/25 18:34 Glucagon For Inj 1 Mg Vial IM PRN PRN Hypoglycemia Protocol Glucose 15 gm 08/09/25 18:34 Glucose Oral Gel 15 Gm Of Glucse In 37.5 Gm Tube PO PRN PRN Hypoglycemia Protocol Propofol 100 mls @ 22.446 mls/hr 08/09/25 18:30 08/11/25 06:06 Diprivan IV CONT 30 mcg/kg/min .Q4H28M DALE 22.45 mls/hr Protocol Administration 30 MCG/KG/MIN Dextrose 1,000 mls @ 100 mls/hr 08/09/25 18:34 Dextrose 5% 1,000 Ml IVPB PRN PRN Hypoglycemia Protocol Ceftriaxone Sodium 1 gm/ 50 mls @ 100 mls/hr 08/10/25 09:00 08/10/25 17:22 Sodium Chloride IVPB Infused Q24H DALE Infusion Insulin Aspart 2 - 5 units 08/10/25 12:00 08/11/25 04:39 Insulin Aspart (*Bkc) 100 Units/Ml SUB-Q Not Given Q6HR DALE Protocol Miscellaneous Information 1 each 08/11/25 00:01 08/11/25 04:10 Please Renew Propofol. Per [employer] Procedure, It Will Discontinue If Not Renewed XX 09/10/25 00:00 1 each CLARIFY DALE Administration Multi-Ingred Cream/Lotion/Oil/Oint 1 applic 08/09/25 21:00 08/10/25 20:21 Mineral Oil/White Petrolatum Ointment EACH EYE 1 applic Q12HR DALE Administration Pantoprazole Sodium 40 mg 08/10/25 09:00 08/10/25 10:32 Pantoprazole Sodium Iv 40 Mg Vial IV PUSH 40 mg QAM DALE Administration Polyethylene Glycol 17 gm 08/10/25 09:00 08/10/25 10:32 Polyethylene Glycol 3350 17 Gm Powd.Pack FEED TUBE 17 gm QAM DALE Administration Potassium Chloride 40 meq 08/11/25 07:45 Potassium Chloride 20 Meq Packet (For Liquid) FEED TUBE 08/11/25 13:46 Q6H DALE Pramipexole Dihydrochloride 1 mg 08/10/25 09:00 08/10/25 17:22 Pramipexole 1 Mg Tablet FEED TUBE 1 mg TID DALE Administration Senna/Docusate Sodium 2 tab 08/10/25 09:00 08/10/25 17:22 Senna/Docusate Sodium Tablet FEED TUBE 2 tab BID DALE Administration Trazodone HCl 100 mg 08/08/25 21:00 08/09/25 21:40 Trazodone Hcl 50 Mg Tablet PO Not Given On Hold: 08/09/25 21:00 QHS DALE Resume: 08/16/25 09:00 Radiology Results: ITS Impressions Knee X-Ray 08/07/25 18:51 IMPRESSION: 1. No acute bony lesions. 2 osteopenic bones. Severe arthritis predominantly of patellofemoral joint. Please correlate with DEXA densitometry. 3 if symptoms are localized and persistent, MRI is indicated. Venous Doppler Study 08/07/25 20:49 IMPRESSION: 1. No deep venous thrombosis in the right lower extremity veins.. Ankle X-Ray 08/09/25 14:44 Impression: No acute fracture or malalignment. Wrist X-Ray 08/09/25 14:44 Impression: No acute fracture or malalignment. Head CT 08/09/25 20:23 IMPRESSION: 1. No acute findings in this limited noncontrast CT head. Chest/Abdomen/Pelvis CT 08/09/25 20:29 IMPRESSION: 1. Limited noncontrast examination is not optimal to evaluate solid viscera, vascular structures and neoplasms. 2. No acute pulmonary findings. Minimal platelike atelectasis of lung bases. 3. Tip of the endotracheal tube is low in position, just above the allie. Please reposition this ET tube more proximally by approximately 2.5 to 3 cm. 4. No acute findings in the abdomen and pelvis. Other findings as mentioned above. Chest X-Ray 08/11/25 08:01 IMPRESSION: 1. Developing left basilar airspace disease and/or pleural effusion. Labs Labs: Laboratory Results - last 24 hr 08/10/25 08/10/25 08/10/25 05:26 11:54 16:37 WBC RBC Hgb Hct MCV MCH MCHC RDW Plt Count MPV Puncture Site ABG pH ABG pCO2 ABG pO2 ABG PO2/FiO2 Ratio ABG HCO3 ABG O2 Saturation ABG O2 Content ABG Base Excess A-a Gradient Oxyhemoglobin Carboxyhemoglobin Methemoglobin Reduced Hemoglobin Total Hemoglobin O2 Delivery Device O2 Liters/Min Minute Volume Vent Rate Vent Mode FiO2 Tidal Volume PEEP Peak Inspir Pressure Pressure Support Sodium 137 Potassium 3.8 Chloride 105 Carbon Dioxide 30 Anion Gap 2 L BUN 17 Creatinine 0.74 Estim Creat Clear Calc 97 Estimated GFR > 60 Glucose 125 H POC Capillary Glucose 121 H Calcium 8.2 L Magnesium Total Bilirubin AST ALT Alkaline Phosphatase NT-Pro-B Natriuret Pep 1530 H Total Protein Albumin 08/10/25 08/10/25 08/11/25 17:16 23:35 03:34 WBC 11.0 H RBC 4.19 L Hgb 12.1 L Hct 37.6 L MCV 89.7 MCH 28.9 MCHC 32.2 RDW 13.0 Plt Count 188 MPV 11.4 H Puncture Site ABG pH ABG pCO2 ABG pO2 ABG PO2/FiO2 Ratio ABG HCO3 ABG O2 Saturation ABG O2 Content ABG Base Excess A-a Gradient Oxyhemoglobin Carboxyhemoglobin Methemoglobin Reduced Hemoglobin Total Hemoglobin O2 Delivery Device O2 Liters/Min Minute Volume Vent Rate Vent Mode FiO2 Tidal Volume PEEP Peak Inspir Pressure Pressure Support Sodium 135 L Potassium 3.5 Chloride 102 Carbon Dioxide 30 Anion Gap 3 L BUN 18 Creatinine 0.69 L Estim Creat Clear Calc 104 Estimated GFR > 60 Glucose 143 H POC Capillary Glucose 120 H 136 H Calcium 8.4 Magnesium 2.2 Total Bilirubin 0.5 AST 26 ALT 10 Alkaline Phosphatase 62 NT-Pro-B Natriuret Pep Total Protein 6.2 L Albumin 3.3 L 08/11/25 04:24 WBC RBC Hgb Hct MCV MCH MCHC RDW Plt Count MPV Puncture Site Right radial ABG pH 7.447 ABG pCO2 37.4 ABG pO2 73.3 L ABG PO2/FiO2 Ratio 1.83 ABG HCO3 25.2 ABG O2 Saturation 95.4 ABG O2 Content 17.2 ABG Base Excess 1.4 A-a Gradient 168.9 Oxyhemoglobin 94.9 Carboxyhemoglobin 0.4 Methemoglobin 0.3 Reduced Hemoglobin 4.4 Total Hemoglobin 12.9 O2 Delivery Device Ventilator O2 Liters/Min Not Reportable Minute Volume Not Reportable Vent Rate 18 Vent Mode Cmv FiO2 40 Tidal Volume 400 PEEP 5 Peak Inspir Pressure Not Reportable Pressure Support Not Reportable Sodium Potassium Chloride Carbon Dioxide Anion Gap BUN Creatinine Estim Creat Clear Calc Estimated GFR Glucose POC Capillary Glucose Calcium Magnesium Total Bilirubin AST ALT Alkaline Phosphatase NT-Pro-B Natriuret Pep Total Protein Albumin
[2025-08-11] MEDS: MINERAL OIL/WHITE PETROLATUM OINTMENT 1 APPLIC EACH EYE ×2 (09:01→20:01)
[2025-08-11] MEDS: cefTRIAXone 1 GM in SODIUM CHLORIDE 0.9% IV 50 ML 100 ML IVPB (09:02)
[2025-08-11] MEDS: ENOXAPARIN 40 MG/0.4 ML SYRINGE SUB-Q (09:02)
[2025-08-11] MEDS: PRAMIPEXOLE 1 MG TABLET FEED TUBE ×3 (09:03→16:43)
[2025-08-11] MEDS: PANTOPRAZOLE SODIUM IV 40 MG VIAL IV PUSH (09:03)
[2025-08-11] MEDS: SENNA/DOCUSATE SODIUM TABLET 2 TAB FEED TUBE ×2 (09:03→16:43)
--- NOTE | 2025-08-11 10:50 | PCNFU ---
Nutrition Follow-Up Complete: Suboptimal Energy Intake as related to Mechanical vent as evidenced by NPO. Meet estimated nutritional needs - Progressing with goal on tube feedings. Continue same goal Goal: Pt current nutrition is Vital AF 1.2 @ goal rate 50 ml/h with flushes 30 ml q 4 h. Nutrition recommendation: No new recommendations. Continue current nutrition care plan and orders. Agree with orders Last recorded weight is 121.5 kg. Bowel Motility: Last BM 08/05. Bowel regimen in place Labs Reviewed: +Hgb 12.1, Hct 37.6, Alb 3.3, Na 135, Cre 0.69, Glu 143 Meds Noted: Senna, miralax, Lasix, protonix, Propofol @ 22.45 ml/h= 593 kcal Skin: No skin issues noted Additional Notes: Pt remains on vent with MV 10.4, sedation with propofol. Tolerating tube feedings, no bowel movements yet. Vital AF 1.2 @ 50 ml/h provides 1320 kcal, 83 g protein, 892 ml free water. Propofol addition 593 kcal for total 1913 kcal. WIll continue to titrate TF up as propofol titrates down. Will monitor weight, labs, skin, diet orders, meds every Thursday and Thursday.
[2025-08-11 18:38] LABS: Anion Gap 4 mmol/L (4-12); Blood Urea Nitrogen 21 mg/dL (9-20); Calcium 8.5 mg/dL (8.4-10.2); Carbon Dioxide 34 mmol/L (22-30); Chloride 97 mmol/L (98-107); Estimated CRCL calculation 90 ml/min; Estimated Glomerular Filt Rate > 60; Glucose 128 mg/dL (65-110); Potassium 3.8 mmol/L (3.4-5.0); Sodium 135 mmol/L (137-145)
[2025-08-12] VITALS (51 sets, daily range): BP systolic 116–182; BP diastolic 43–59; PULSE 60–105; RESP 17–35; TEMP 36.9–38.3; O2SAT 93–100
[2025-08-12] MEDS: CARBIDOPA/LEVODOPA 25/100 MG TABLET 2 TABLET FEED TUBE ×4 (00:24→20:05)
[2025-08-12] MEDS: PROPOFOL IV EMULSION 100 ML 22.45 MG IV CONT ×2 (01:40→06:10)
[2025-08-12 04:40] LABS: Alveolar/Arterial O2 Gradient 148.9 mmHg; Carboxyhemoglobin 0.4 % THb (0-2.0); Fractional Inspired Oxygen 40 %; HCO3 ABG 32.8 mEq/l (22.0-26.0); Methemoglobin ABG 0.0 %THb (0-1.5); Oxygen Content ABG 18.2 %vol (16.0-22.0); Oxygen Saturation ABG 96.6 % (95.0-100.0); PCO2 ABG 46.8 mmHg (35.0-45.0); PO2 ABG 82.5 mmHg (80.0-100.0); PO2 FiO2 Ratio Arterial Blood 2.06 %; Reduced Hemoglobin 3.4 %THb (0-5.0)
[2025-08-12 04:41] LABS: Modified Allen's Test Pass; Site Drawn LEFT RADIAL
[2025-08-12 04:42] LABS: Arterial Blood Gas Tidal Volume 400 ml; Arterial Blood Gas Ventilator rate 16 /MIN
[2025-08-12 04:44] LABS: Hematocrit 39.0 % (42.0-52.0); Hemoglobin 12.5 g/dL (14.0-18.0); Mean Corpuscular HGB Conc 32.1 g/dl (32-36); Mean Corpuscular Hemoglobin 28.9 pg (26-34); Mean Corpuscular Volume 90.3 fl (80-100); Platelet Count Result 222 k/mm3 (150-375); Red Blood Count 4.32 M/mm3 (4.6-6.20); White Blood Count 10.7 K/mm3 (4.5-10.0)
[2025-08-12 05:06] LABS: Albumin Level 3.4 g/dL (3.5-5.1); Alkaline Phosphatase 74 U/L (38-126); Anion Gap 5 mmol/L (4-12); Aspartate Amino Transferase 26 U/L (17-59); Bilirubin,Total 0.6 mg/dL (0.2-1.3); Blood Urea Nitrogen 28 mg/dL (9-20); Calcium 8.4 mg/dL (8.4-10.2); Carbon Dioxide 33 mmol/L (22-30); Chloride 99 mmol/L (98-107); Estimated CRCL calculation 91 ml/min; Estimated Glomerular Filt Rate > 60; Glucose 141 mg/dL (65-110); Magnesium 2.3 mg/dL (1.6-2.3); Potassium 3.3 mmol/L (3.4-5.0); Sodium 137 mmol/L (137-145); Total Protein 6.3 g/dL (6.3-8.2)
[2025-08-12 05:09] LABS: Alanine Aminotransferase < 6 U/L (6-50)
[2025-08-12] MEDS: PRAMIPEXOLE 1 MG TABLET FEED TUBE ×3 (08:14→16:45)
[2025-08-12] MEDS: POTASSIUM CHLORIDE 20 MEQ PACKET (FOR LIQUID) 40 MEQ FEED TUBE ×2 (08:14→13:17)
[2025-08-12] MEDS: cefTRIAXone 1 GM in SODIUM CHLORIDE 0.9% IV 50 ML 100 ML IVPB (08:15)
[2025-08-12] MEDS: SENNA/DOCUSATE SODIUM TABLET 2 TAB FEED TUBE ×2 (08:15→16:44)
[2025-08-12] MEDS: ENOXAPARIN 40 MG/0.4 ML SYRINGE SUB-Q (08:15)
[2025-08-12] MEDS: PANTOPRAZOLE SODIUM IV 40 MG VIAL IV PUSH (08:15)
--- NOTE | 2025-08-12 08:22 | WPDINTPN2 ---
Assessment and Plan Assessment and Plan (1) Acute respiratory failure: Code(s): J96.00 - Acute respiratory failure, unspecified whether with hypoxia or hypercapnia Status: Acute Assessment and Plan: Acute respiratory failure secondary to altered mental status and pulmonary edema Patient now intubated and sedated ABG reviewed. I will decrease tidal volume to 400 and rate to 16 Continue propofol for sedation. Continue Lasix IV for congestive heart failure Sedation holiday and evaluate for SBT today (2) Parkinson disease: Qualifiers: Dyskinesia presence: unspecified whether dyskinesia Fluctuating manifestations: unspecified whether manifestations fluctuate Qualified Code(s): G20.A1 - Parkinson's disease without dyskinesia, without mention of fluctuations Code(s): G20 - Parkinson's disease Status: Acute Assessment and Plan: Continue levodopa carbidopa by enteral tube Continue Mirapex amantadine is on hold since is cannot be given through the tube (3) Congestive heart failure: Code(s): I50.9 - Heart failure, unspecified Status: Acute Assessment and Plan: Patient has edema on exam and echo shows diastolic dysfunction. I checked a BNP and was elevated Continuet Lasix IV (4) UTI (urinary tract infection): Code(s): N39.0 - Urinary tract infection, site not specified Status: Acute Assessment and Plan: Check urine culture and continue Rocephin (5) Agitation: Code(s): R45.1 - Restlessness and agitation Status: Acute Assessment and Plan: Not sure of the episode of agitation that patient had yesterday he appears to be confused and agitated and which could be delirium peer head CT was negative Currently sedated with propofol (6) Electrolyte abnormality: Code(s): E87.8 - Other disorders of electrolyte and fluid balance, not elsewhere classified Status: Acute Assessment and Plan: Replace low K Plan DVT prophylaxis -Lovenox Stress ulcer prophylaxis -PPI Nutrition -continue Tube Feeds Code Status - Full Code I spoke to and updated patient's and daughter at bedside yesterday and answered all their questions. Total Critical Care Time - 30 minutes Due to a high probability of clinically significant, life threatening deterioration, the patient required my highest level of preparedness to intervene emergently and I personally spent this critical care time directly and personally managing the patient. This critical care time included obtaining a history; examining the patient; pulse oximetry; ordering and review of studies; arranging urgent treatment with development of a management plan; evaluation of patient's response to treatment; frequent reassessment; and discussions with other providers. It was exclusive of separately billable procedures and treating other patients and teaching time. Please see Assessment and Plan section and the rest of the note for further information on patient assessment and treatment Subjective Date/time seen: 08/12/25 Overnight events reviewed. Afebrile Continues to be on mechanical ventilation 40% Good urine output response to Lasix Continues to be sedated with propofol Tolerating tube feed Other Vitals acceptable Review of Systems Review of Systems: ROS unobtainable: Yes unobtainable due to endotracheal tube, unobtainable due to medical condition and unobtainable due to mental status Exam Narrative: General: Pt is sedated, intubated and on mechanical ventilation Lungs/Chest: Trachea central Coarse BS B/L, No crackles or wheezing. Cardiac: RRR. Normal S1 S2. No murmurs Circulation: Pedal pulses are intact and symmetrical. Abdomen: Decreased bowel sounds. Obese. Soft. NT. ND. Extremities: No clubbing, cyanosis, mild pedal edema present : Brower in place Neurologic: Unable to assess due to sedation. Moves all 4 extremities to painful stimuli. PERRL. On holding sedation he follows command Objective Data Vital Signs Vital Signs: Vital Signs - 24 hr 08/11/25 09:00 08/11/25 09:17 08/11/25 09:17 Temperature 37.4 C Pulse Rate 66 69 69 Respiratory Rate 17 18 18 Blood Pressure 125/42 L Pulse Oximetry 98 Oxygen Delivery Fraction of Inspired Oxygen 08/11/25 10:00 08/11/25 10:00 08/11/25 10:00 Temperature 37.4 C Pulse Rate 69 71 71 Respiratory Rate 23 H 23 H Blood Pressure 130/52 L Pulse Oximetry 98 Oxygen Delivery Fraction of Inspired Oxygen 08/11/25 11:00 08/11/25 11:10 08/11/25 12:00 Temperature 37.4 C 37.6 C Pulse Rate 70 71 73 Respiratory Rate 24 H 26 H Blood Pressure 122/46 L 131/48 L Pulse Oximetry 99 98 97 Oxygen Delivery Mechanical Ventilation Fraction of Inspired Oxygen 40 08/11/25 12:00 08/11/25 12:00 08/11/25 12:00 Temperature Pulse Rate 71 Respiratory Rate 26 H Blood Pressure Pulse Oximetry 97 Oxygen Delivery Mechanical Ventilation Fraction of Inspired Oxygen 40 40 08/11/25 12:00 08/11/25 13:00 08/11/25 13:40 Temperature 37.6 C Pulse Rate 70 72 79 Respiratory Rate 24 H Blood Pressure 128/45 L Pulse Oximetry 98 96 Oxygen Delivery Mechanical Ventilation Fraction of Inspired Oxygen 40 08/11/25 14:00 08/11/25 14:00 08/11/25 14:00 Temperature 37.8 C H 37.8 C H Pulse Rate 71 70 75 Respiratory Rate 27 H 24 H Blood Pressure 135/51 L 135/51 L Pulse Oximetry 97 100 Oxygen Delivery Fraction of Inspired Oxygen 08/11/25 14:00 08/11/25 14:12 08/11/25 14:15 Temperature Pulse Rate 70 71 71 Respiratory Rate 26 H 26 H Blood Pressure Pulse Oximetry 95 Oxygen Delivery Mechanical Ventilation Fraction of Inspired Oxygen 40 08/11/25 15:00 08/11/25 16:00 08/11/25 16:00 Temperature 37.8 C H 37.8 C H Pulse Rate 75 80 Respiratory Rate 26 H 25 H Blood Pressure 135/52 L 138/55 L Pulse Oximetry 96 95 95 Oxygen Delivery Mechanical Ventilation Fraction of Inspired Oxygen 40 08/11/25 16:00 08/11/25 16:00 08/11/25 16:00 Temperature Pulse Rate 109 H 77 Respiratory Rate 23 H Blood Pressure Pulse Oximetry Oxygen Delivery Fraction of Inspired Oxygen 40 08/11/25 16:47 08/11/25 16:47 08/11/25 16:55 Temperature Pulse Rate 78 78 79 Respiratory Rate 26 H 26 H Blood Pressure Pulse Oximetry 95 Oxygen Delivery Mechanical Ventilation Fraction of Inspired Oxygen 40 08/11/25 17:00 08/11/25 18:00 08/11/25 18:00 Temperature 37.9 C H 38.1 C H Pulse Rate 79 73 73 Respiratory Rate 25 H 22 H Blood Pressure 135/44 L 125/47 L Pulse Oximetry 95 98 Oxygen Delivery Fraction of Inspired Oxygen 08/11/25 18:00 08/11/25 19:00 08/11/25 20:00 Temperature 38.3 C H Pulse Rate 73 75 79 Respiratory Rate 23 H 23 H 26 H Blood Pressure 133/46 L Pulse Oximetry 97 Oxygen Delivery Fraction of Inspired Oxygen 08/11/25 20:00 08/11/25 20:00 08/11/25 20:00 Temperature 38.3 C H Pulse Rate 79 79 Respiratory Rate 26 H 26 H Blood Pressure 136/47 L Pulse Oximetry 97 97 Oxygen Delivery Mechanical Ventilation Fraction of Inspired Oxygen 40 40 08/11/25 20:00 08/11/25 20:03 08/11/25 21:00 Temperature 38.3 C H Pulse Rate 79 79 74 Respiratory Rate 20 Blood Pressure 118/45 L Pulse Oximetry 95 95 Oxygen Delivery Mechanical Ventilation Fraction of Inspired Oxygen 40 08/11/25 21:54 08/11/25 21:54 08/11/25 22:00 Temperature 38.1 C H Pulse Rate 76 76 73 Respiratory Rate 24 H 24 H 21 H Blood Pressure 123/40 L Pulse Oximetry 93 Oxygen Delivery Fraction of Inspired Oxygen 08/11/25 22:00 08/11/25 22:24 08/11/25 23:00 Temperature 38.1 C H Pulse Rate 73 77 74 Respiratory Rate 22 H Blood Pressure 128/47 L Pulse Oximetry 95 96 Oxygen Delivery Mechanical Ventilation Fraction of Inspired Oxygen 40 08/12/25 00:00 08/12/25 00:00 08/12/25 00:00 Temperature 37.9 C H Pulse Rate 73 73 Respiratory Rate 22 H 22 H Blood Pressure 124/46 L Pulse Oximetry 96 Oxygen Delivery Fraction of Inspired Oxygen 40 08/12/25 00:00 08/12/25 00:00 08/12/25 01:00 Temperature 37.7 C H Pulse Rate 73 73 70 Respiratory Rate 21 H 19 Blood Pressure 121/43 L Pulse Oximetry 96 96 Oxygen Delivery Mechanical Ventilation Fraction of Inspired Oxygen 40 08/12/25 01:40 08/12/25 01:40 08/12/25 02:00 Temperature 37.6 C H Pulse Rate 71 71 72 Respiratory Rate 22 H 22 H 19 Blood Pressure 122/46 L Pulse Oximetry 96 Oxygen Delivery Fraction of Inspired Oxygen 08/12/25 02:00 08/12/25 02:00 08/12/25 02:13 Temperature Pulse Rate 72 72 70 Respiratory Rate 19 Blood Pressure Pulse Oximetry 97 Oxygen Delivery Mechanical Ventilation Fraction of Inspired Oxygen 40 08/12/25 03:00 08/12/25 04:00 08/12/25 04:00 Temperature 37.5 C Pulse Rate 70 68 68 Respiratory Rate 20 24 H 24 H Blood Pressure 126/45 L Pulse Oximetry 97 97 Oxygen Delivery Mechanical Ventilation Fraction of Inspired Oxygen 40 08/12/25 04:00 08/12/25 04:00 08/12/25 04:00 Temperature 37.3 C Pulse Rate 68 69 Respiratory Rate 24 H Blood Pressure 127/48 L Pulse Oximetry 97 Oxygen Delivery Fraction of Inspired Oxygen 40 08/12/25 04:35 08/12/25 05:00 08/12/25 06:00 Temperature 37.1 C Pulse Rate 69 70 60 Respiratory Rate 24 H 17 Blood Pressure 138/43 L Pulse Oximetry 97 98 Oxygen Delivery Mechanical Ventilation Fraction of Inspired Oxygen 40 08/12/25 06:00 08/12/25 06:00 08/12/25 06:10 Temperature 37.1 C Pulse Rate 60 60 60 Respiratory Rate 18 18 Blood Pressure 126/49 L Pulse Oximetry 98 Oxygen Delivery Fraction of Inspired Oxygen 08/12/25 06:10 08/12/25 07:00 08/12/25 08:00 Temperature 36.9 C Pulse Rate 60 60 62 Respiratory Rate 18 17 22 H Blood Pressure 125/49 L Pulse Oximetry 98 Oxygen Delivery Fraction of Inspired Oxygen Intake/Output Intake/Output: Intake & Output 08/09/25 08/10/25 08/11/25 08/12/25 23:59 23:59 23:59 23:59 Intake Total 2929.5 1007.9 3243.7 740.7 Output Total 600 1900 5025 225 Balance 2329.5 -892.1 -1781.3 515.7 Meds/Results Medications: Active Medications Generic Name Dose Route Start Last Admin Trade Name Freq PRN Reason Stop Dose Admin Acetaminophen 650 mg 08/09/25 22:21 08/10/25 13:41 Acetaminophen Elixir 325 Mg/10.15 Ml Udc FEED TUBE 650 mg Q4H PRN Administration Fever Albuterol 2 puff 08/08/25 09:01 Albuterol Sulfate (*Sp) Aerosol 1 Puff INHALATION Q4HRT PRN Shortness Of Breath Or Wheezing Amantadine HCl 100 mg 08/10/25 09:00 08/10/25 10:37 Amantadine Hcl 100 Mg Capsule FEED TUBE Not Given On Hold: 08/10/25 12:13 TID DALE Bisacodyl 10 mg 08/11/25 07:45 Bisacodyl 10 Mg Suppository RECTAL QAM PRN Constipation Carbidopa/Levodopa 2 tablet 08/10/25 00:00 08/12/25 06:13 Carbidopa/Levodopa 25/100 Mg Tablet FEED TUBE 2 tablet DAILY@00,03,06,21 DALE Administration Dextrose 12.5 gm 08/09/25 18:34 Dextrose 50% 25 Gm/50 Ml Syringe IV PUSH PRN PRN Hypoglycemia Protocol Enoxaparin Sodium 40 mg 08/10/25 09:00 08/12/25 08:15 Enoxaparin 40 Mg/0.4 Ml Syringe SUB-Q 40 mg DAILY DALE Administration Fluticasone Propionate 2 spray 08/08/25 09:01 Fluticasone Propionate 0.05% Na Spr 16 Gm Btl (*Bkc) NASAL PRN PRN allergies Furosemide 80 mg 08/12/25 08:30 Furosemide Inj 100 Mg/10 Ml Vial IV PUSH 08/12/25 09:01 BID DALE Glucagon 1 mg 08/09/25 18:34 Glucagon For Inj 1 Mg Vial IM PRN PRN Hypoglycemia Protocol Glucose 15 gm 08/09/25 18:34 Glucose Oral Gel 15 Gm Of Glucse In 37.5 Gm Tube PO PRN PRN Hypoglycemia Protocol Propofol 100 mls @ 18.705 mls/hr 08/09/25 18:30 08/12/25 08:00 Diprivan IV CONT 25 mcg/kg/min .Q5H21M DALE 18.71 mls/hr Protocol Titration 25 MCG/KG/MIN Dextrose 1,000 mls @ 100 mls/hr 08/09/25 18:34 Dextrose 5% 1,000 Ml IVPB PRN PRN Hypoglycemia Protocol Ceftriaxone Sodium 1 gm/ 50 mls @ 100 mls/hr 08/10/25 09:00 08/12/25 08:15 Sodium Chloride IVPB 100 mls/hr Q24H DALE Administration Insulin Aspart 2 - 5 units 08/10/25 12:00 08/12/25 06:16 Insulin Aspart (*Bkc) 100 Units/Ml SUB-Q Not Given Q6HR DALE Protocol Miscellaneous Information 1 each 08/11/25 00:01 08/11/25 04:10 Please Renew Propofol. Per [employer] Procedure, It Will Discontinue If Not Renewed XX 09/10/25 00:00 1 each CLARIFY DALE Administration Multi-Ingred Cream/Lotion/Oil/Oint 1 applic 08/09/25 21:00 08/11/25 20:01 Mineral Oil/White Petrolatum Ointment EACH EYE 1 applic Q12HR DALE Administration Pantoprazole Sodium 40 mg 08/10/25 09:00 08/12/25 08:15 Pantoprazole Sodium Iv 40 Mg Vial IV PUSH 40 mg QAM DALE Administration Polyethylene Glycol 17 gm 08/10/25 09:00 08/12/25 08:14 Polyethylene Glycol 3350 17 Gm Powd.Pack FEED TUBE 17 gm QAM DALE Administration Potassium Chloride 40 meq 08/12/25 07:55 08/12/25 08:14 Potassium Chloride 20 Meq Packet (For Liquid) FEED TUBE 08/12/25 13:56 40 meq Q6H DALE Administration Pramipexole Dihydrochloride 1 mg 08/10/25 09:00 08/12/25 08:14 Pramipexole 1 Mg Tablet FEED TUBE 1 mg TID DALE Administration Senna/Docusate Sodium 2 tab 08/10/25 09:00 08/12/25 08:15 Senna/Docusate Sodium Tablet FEED TUBE 2 tab BID DALE Administration Trazodone HCl 100 mg 08/08/25 21:00 08/09/25 21:40 Trazodone Hcl 50 Mg Tablet PO Not Given On Hold: 08/09/25 21:00 QHS DALE Resume: 08/16/25 09:00 Radiology Results: ITS Impressions Knee X-Ray 08/07/25 18:51 IMPRESSION: 1. No acute bony lesions. 2 osteopenic bones. Severe arthritis predominantly of patellofemoral joint. Please correlate with DEXA densitometry. 3 if symptoms are localized and persistent, MRI is indicated. Venous Doppler Study 08/07/25 20:49 IMPRESSION: 1. No deep venous thrombosis in the right lower extremity veins.. Ankle X-Ray 08/09/25 14:44 Impression: No acute fracture or malalignment. Wrist X-Ray 08/09/25 14:44 Impression: No acute fracture or malalignment. Head CT 08/09/25 20:23 IMPRESSION: 1. No acute findings in this limited noncontrast CT head. Chest/Abdomen/Pelvis CT 08/09/25 20:29 IMPRESSION: 1. Limited noncontrast examination is not optimal to evaluate solid viscera, vascular structures and neoplasms. 2. No acute pulmonary findings. Minimal platelike atelectasis of lung bases. 3. Tip of the endotracheal tube is low in position, just above the allie. Please reposition this ET tube more proximally by approximately 2.5 to 3 cm. 4. No acute findings in the abdomen and pelvis. Other findings as mentioned above. Labs Labs: Laboratory Results - last 24 hr 08/11/25 08/11/25 08/11/25 11:51 17:57 18:19 WBC RBC Hgb Hct MCV MCH MCHC RDW Plt Count MPV Puncture Site ABG pH ABG pCO2 ABG pO2 ABG PO2/FiO2 Ratio ABG HCO3 ABG O2 Saturation ABG O2 Content ABG Base Excess A-a Gradient Oxyhemoglobin Carboxyhemoglobin Methemoglobin Reduced Hemoglobin Total Hemoglobin O2 Delivery Device O2 Liters/Min Minute Volume Vent Rate Vent Mode FiO2 Tidal Volume PEEP Peak Inspir Pressure Pressure Support Sodium 135 L Potassium 3.8 Chloride 97 L Carbon Dioxide 34 H Anion Gap 4 BUN 21 H Creatinine 0.78 Estim Creat Clear Calc 90 Estimated GFR > 60 Glucose 128 H POC Capillary Glucose 113 H 126 H Calcium 8.5 Magnesium Total Bilirubin AST ALT Alkaline Phosphatase Total Protein Albumin 08/12/25 08/12/25 08/12/25 00:24 03:56 04:28 WBC 10.7 H RBC 4.32 L Hgb 12.5 L Hct 39.0 L MCV 90.3 MCH 28.9 MCHC 32.1 RDW 12.9 Plt Count 222 MPV 11.3 H Puncture Site Left radial ABG pH 7.463 H ABG pCO2 46.8 H ABG pO2 82.5 ABG PO2/FiO2 Ratio 2.06 ABG HCO3 32.8 H ABG O2 Saturation 96.6 ABG O2 Content 18.2 ABG Base Excess 7.8 A-a Gradient 148.9 Oxyhemoglobin 96.2 Carboxyhemoglobin 0.4 Methemoglobin 0.0 Reduced Hemoglobin 3.4 Total Hemoglobin 13.4 O2 Delivery Device Ventilator O2 Liters/Min Not Reportable Minute Volume Not Reportable Vent Rate 16 Vent Mode Cmv FiO2 40 Tidal Volume 400 PEEP 8 Peak Inspir Pressure Not Reportable Pressure Support Not Reportable Sodium 137 Potassium 3.3 L Chloride 99 Carbon Dioxide 33 H Anion Gap 5 BUN 28 H Creatinine 0.77 Estim Creat Clear Calc 91 Estimated GFR > 60 Glucose 141 H POC Capillary Glucose 137 H Calcium 8.4 Magnesium 2.3 Total Bilirubin 0.6 AST 26 ALT < 6 L Alkaline Phosphatase 74 Total Protein 6.3 Albumin 3.4 L 08/12/25 06:15 WBC RBC Hgb Hct MCV MCH MCHC RDW Plt Count MPV Puncture Site ABG pH ABG pCO2 ABG pO2 ABG PO2/FiO2 Ratio ABG HCO3 ABG O2 Saturation ABG O2 Content ABG Base Excess A-a Gradient Oxyhemoglobin Carboxyhemoglobin Methemoglobin Reduced Hemoglobin Total Hemoglobin O2 Delivery Device O2 Liters/Min Minute Volume Vent Rate Vent Mode FiO2 Tidal Volume PEEP Peak Inspir Pressure Pressure Support Sodium Potassium Chloride Carbon Dioxide Anion Gap BUN Creatinine Estim Creat Clear Calc Estimated GFR Glucose POC Capillary Glucose 124 H Calcium Magnesium Total Bilirubin AST ALT Alkaline Phosphatase Total Protein Albumin Quality VTE Prophylaxis VTE prophylaxis: mechanical ordered
[2025-08-12] MEDS: MINERAL OIL/WHITE PETROLATUM OINTMENT 1 APPLIC EACH EYE ×2 (08:33→20:05)
[2025-08-12] MEDS: FUROSEMIDE INJ 100 MG/10 ML VIAL 80 MG IV PUSH ×2 (09:00→15:18)
[2025-08-12 10:46] LABS: Alveolar/Arterial O2 Gradient 171.4 mmHg; Carboxyhemoglobin 0.6 % THb (0-2.0); Fractional Inspired Oxygen 40 %; HCO3 ABG 32.1 mEq/l (22.0-26.0); Methemoglobin ABG 0.3 %THb (0-1.5); Oxygen Content ABG 18.3 %vol (16.0-22.0); Oxygen Saturation ABG 94.2 % (95.0-100.0); PCO2 ABG 42.5 mmHg (35.0-45.0); PO2 ABG 64.9 mmHg (80.0-100.0); PO2 FiO2 Ratio Arterial Blood 1.62 %; Reduced Hemoglobin 6.2 %THb (0-5.0)
[2025-08-12 10:48] LABS: Modified Allen's Test Pass; Site Drawn RIGHT RADIAL
[2025-08-12 10:51] LABS: Arterial Blood Gas Pressure Support 8 cmH2O
--- NOTE | 2025-08-12 13:40 | PM.IMPN2 ---
Assessment and Plan Assessment and Plan (1) Acute respiratory failure: Code(s): J96.00 - Acute respiratory failure, unspecified whether with hypoxia or hypercapnia Status: Acute Assessment and Plan: Acute respiratory failure secondary to altered mental status and pulmonary edema Patient now intubated and sedated Vent management per ICU (2) Parkinson disease: Qualifiers: Dyskinesia presence: unspecified whether dyskinesia Fluctuating manifestations: unspecified whether manifestations fluctuate Qualified Code(s): G20.A1 - Parkinson's disease without dyskinesia, without mention of fluctuations Code(s): G20 - Parkinson's disease Status: Acute Assessment and Plan: Continue levodopa carbidopa by enteral tube Continue Mirapex amantadine is on hold since is cannot be given through the tube (3) Congestive heart failure: Code(s): I50.9 - Heart failure, unspecified Status: Acute Assessment and Plan: Patient has edema on exam and echo shows diastolic dysfunction. Elevated BNP Continuet Lasix IV (4) UTI (urinary tract infection): Code(s): N39.0 - Urinary tract infection, site not specified Status: Acute Assessment and Plan: Check urine culture and continue Rocephin (5) Agitation: Code(s): R45.1 - Restlessness and agitation Status: Acute Assessment and Plan: Not sure of the episode of agitation that patient had yesterday he appears to be confused and agitated and which could be delirium peer head CT was negative Currently sedated with propofol (6) Electrolyte abnormality: Code(s): E87.8 - Other disorders of electrolyte and fluid balance, not elsewhere classified Status: Acute Assessment and Plan: Replace low K Plan DVT prophylaxis -Lovenox Stress ulcer prophylaxis -PPI Nutrition -continue Tube Feeds Code Status - Full Code Subjective Date/time seen: 08/12/25 13:40 Interval history: Patient on breathing trial this a.m.. Family at bedside discussed with her. Remains on vent. Review of Systems Review of Systems: ROS unobtainable: Yes unobtainable due to medical condition Exam Narrative: General: Pt is sedated, intubated and on mechanical ventilation Lungs/Chest: Trachea central Coarse BS B/L, No crackles or wheezing. Cardiac: RRR. Normal S1 S2. No murmurs Circulation: Pedal pulses are intact and symmetrical. Abdomen: Decreased bowel sounds. Obese. Soft. NT. ND. Extremities: No clubbing, cyanosis, mild pedal edema present : Brower in place Neurologic: Unable to assess due to sedation. Moves all 4 extremities to painful stimuli. PERRL. On holding sedation he follows command Objective Data Vital Signs Vital Signs: Vital Signs - 24 hr 08/11/25 14:00 08/11/25 14:00 08/11/25 14:00 Temperature 100.1 F H 100.1 F H Pulse Rate 71 70 75 Respiratory Rate 27 H 24 H Blood Pressure 135/51 L 135/51 L Pulse Oximetry 97 100 Oxygen Delivery Fraction of Inspired Oxygen 08/11/25 14:00 08/11/25 14:12 08/11/25 14:15 Temperature Pulse Rate 70 71 71 Respiratory Rate 26 H 26 H Blood Pressure Pulse Oximetry 95 Oxygen Delivery Mechanical Ventilation Fraction of Inspired Oxygen 40 08/11/25 15:00 08/11/25 16:00 08/11/25 16:00 Temperature 100.1 F H 100.0 F H Pulse Rate 75 80 Respiratory Rate 26 H 25 H Blood Pressure 135/52 L 138/55 L Pulse Oximetry 96 95 95 Oxygen Delivery Mechanical Ventilation Fraction of Inspired Oxygen 40 08/11/25 16:00 08/11/25 16:00 08/11/25 16:00 Temperature Pulse Rate 109 H 77 Respiratory Rate 23 H Blood Pressure Pulse Oximetry Oxygen Delivery Fraction of Inspired Oxygen 40 08/11/25 16:47 08/11/25 16:47 08/11/25 16:55 Temperature Pulse Rate 78 78 79 Respiratory Rate 26 H 26 H Blood Pressure Pulse Oximetry 95 Oxygen Delivery Mechanical Ventilation Fraction of Inspired Oxygen 40 08/11/25 17:00 08/11/25 18:00 08/11/25 18:00 Temperature 100.2 F H 100.6 F H Pulse Rate 79 73 73 Respiratory Rate 25 H 22 H Blood Pressure 135/44 L 125/47 L Pulse Oximetry 95 98 Oxygen Delivery Fraction of Inspired Oxygen 08/11/25 18:00 08/11/25 19:00 08/11/25 20:00 Temperature 101.0 F H Pulse Rate 73 75 79 Respiratory Rate 23 H 23 H 26 H Blood Pressure 133/46 L Pulse Oximetry 97 Oxygen Delivery Fraction of Inspired Oxygen 08/11/25 20:00 08/11/25 20:00 08/11/25 20:00 Temperature 101 F H Pulse Rate 79 79 Respiratory Rate 26 H 26 H Blood Pressure 136/47 L Pulse Oximetry 97 97 Oxygen Delivery Mechanical Ventilation Fraction of Inspired Oxygen 40 40 08/11/25 20:00 08/11/25 20:03 08/11/25 21:00 Temperature 100.9 F H Pulse Rate 79 79 74 Respiratory Rate 20 Blood Pressure 118/45 L Pulse Oximetry 95 95 Oxygen Delivery Mechanical Ventilation Fraction of Inspired Oxygen 40 08/11/25 21:54 08/11/25 21:54 08/11/25 22:00 Temperature 100.5 F H Pulse Rate 76 76 73 Respiratory Rate 24 H 24 H 21 H Blood Pressure 123/40 L Pulse Oximetry 93 Oxygen Delivery Fraction of Inspired Oxygen 08/11/25 22:00 08/11/25 22:24 08/11/25 23:00 Temperature 100.6 F H Pulse Rate 73 77 74 Respiratory Rate 22 H Blood Pressure 128/47 L Pulse Oximetry 95 96 Oxygen Delivery Mechanical Ventilation Fraction of Inspired Oxygen 40 08/12/25 00:00 08/12/25 00:00 08/12/25 00:00 Temperature 100.3 F H Pulse Rate 73 73 Respiratory Rate 22 H 22 H Blood Pressure 124/46 L Pulse Oximetry 96 Oxygen Delivery Fraction of Inspired Oxygen 40 08/12/25 00:00 08/12/25 00:00 08/12/25 01:00 Temperature 99.9 F H Pulse Rate 73 73 70 Respiratory Rate 21 H 19 Blood Pressure 121/43 L Pulse Oximetry 96 96 Oxygen Delivery Mechanical Ventilation Fraction of Inspired Oxygen 40 08/12/25 01:40 08/12/25 01:40 08/12/25 02:00 Temperature 99.7 F H Pulse Rate 71 71 72 Respiratory Rate 22 H 22 H 19 Blood Pressure 122/46 L Pulse Oximetry 96 Oxygen Delivery Fraction of Inspired Oxygen 08/12/25 02:00 08/12/25 02:00 08/12/25 02:13 Temperature Pulse Rate 72 72 70 Respiratory Rate 19 Blood Pressure Pulse Oximetry 97 Oxygen Delivery Mechanical Ventilation Fraction of Inspired Oxygen 40 08/12/25 03:00 08/12/25 04:00 08/12/25 04:00 Temperature 99.5 F Pulse Rate 70 68 68 Respiratory Rate 20 24 H 24 H Blood Pressure 126/45 L Pulse Oximetry 97 97 Oxygen Delivery Mechanical Ventilation Fraction of Inspired Oxygen 40 08/12/25 04:00 08/12/25 04:00 08/12/25 04:00 Temperature 99.2 F Pulse Rate 68 69 Respiratory Rate 24 H Blood Pressure 127/48 L Pulse Oximetry 97 Oxygen Delivery Fraction of Inspired Oxygen 40 08/12/25 04:35 08/12/25 05:00 08/12/25 06:00 Temperature 98.7 F Pulse Rate 69 70 60 Respiratory Rate 24 H 17 Blood Pressure 138/43 L Pulse Oximetry 97 98 Oxygen Delivery Mechanical Ventilation Fraction of Inspired Oxygen 40 08/12/25 06:00 08/12/25 06:00 08/12/25 06:10 Temperature 98.7 F Pulse Rate 60 60 60 Respiratory Rate 18 18 Blood Pressure 126/49 L Pulse Oximetry 98 Oxygen Delivery Fraction of Inspired Oxygen 08/12/25 06:10 08/12/25 07:00 08/12/25 08:00 Temperature 98.5 F Pulse Rate 60 60 62 Respiratory Rate 18 17 22 H Blood Pressure 125/49 L Pulse Oximetry 98 Oxygen Delivery Fraction of Inspired Oxygen 08/12/25 08:00 08/12/25 08:00 08/12/25 08:00 Temperature 98.5 F Pulse Rate 61 Respiratory Rate 22 H Blood Pressure 134/51 L Pulse Oximetry 100 100 Oxygen Delivery Mechanical Ventilation Fraction of Inspired Oxygen 40 40 08/12/25 08:00 08/12/25 08:15 08/12/25 08:30 Temperature Pulse Rate 64 62 65 Respiratory Rate 22 H Blood Pressure Pulse Oximetry 99 Oxygen Delivery Mechanical Ventilation Fraction of Inspired Oxygen 40 08/12/25 08:45 08/12/25 09:00 08/12/25 09:20 Temperature 98.4 F Pulse Rate 65 66 69 Respiratory Rate 24 H 24 H 23 H Blood Pressure 137/54 L Pulse Oximetry 98 Oxygen Delivery Fraction of Inspired Oxygen 08/12/25 09:30 08/12/25 09:35 08/12/25 09:44 Temperature 98.4 F Pulse Rate 71 66 72 Respiratory Rate 24 H 19 Blood Pressure 137/54 L Pulse Oximetry 97 96 Oxygen Delivery Mechanical Ventilation Fraction of Inspired Oxygen 40 08/12/25 09:44 08/12/25 09:45 08/12/25 10:00 Temperature 98.6 F Pulse Rate 75 75 Respiratory Rate 23 H 24 H Blood Pressure 147/56 H Pulse Oximetry 96 Oxygen Delivery Fraction of Inspired Oxygen 40 08/12/25 10:00 08/12/25 11:00 08/12/25 11:17 Temperature 99.1 F Pulse Rate 77 70 70 Respiratory Rate 22 H 22 H Blood Pressure 148/59 H Pulse Oximetry 100 Oxygen Delivery Fraction of Inspired Oxygen 08/12/25 12:00 08/12/25 12:00 08/12/25 12:00 Temperature 99.5 F Pulse Rate 84 Respiratory Rate 21 H Blood Pressure 172/59 H Pulse Oximetry 95 95 Oxygen Delivery Mechanical Ventilation Fraction of Inspired Oxygen 40 40 08/12/25 12:00 08/12/25 12:00 08/12/25 13:00 Temperature 99.8 F H Pulse Rate 85 84 85 Respiratory Rate 24 H 24 H Blood Pressure 158/52 H Pulse Oximetry 95 Oxygen Delivery Fraction of Inspired Oxygen Intake/Output Intake/Output: Intake & Output 08/09/25 08/10/25 08/11/25 08/12/25 23:59 23:59 23:59 23:59 Intake Total 2929.5 1007.9 3243.7 812.8 Output Total 600 1900 5025 225 Balance 2329.5 -892.1 -1781.3 587.8 Meds/Results Medications: Active Medications Generic Name Dose Route Start Last Admin Trade Name Freq PRN Reason Stop Dose Admin Acetaminophen 650 mg 08/09/25 22:21 08/10/25 13:41 Acetaminophen Elixir 325 Mg/10.15 Ml Udc FEED TUBE 650 mg Q4H PRN Administration Fever Albuterol 2 puff 08/08/25 09:01 Albuterol Sulfate (*Sp) Aerosol 1 Puff INHALATION Q4HRT PRN Shortness Of Breath Or Wheezing Amantadine HCl 100 mg 08/10/25 09:00 08/10/25 10:37 Amantadine Hcl 100 Mg Capsule FEED TUBE Not Given On Hold: 08/10/25 12:13 TID DALE Bisacodyl 10 mg 08/11/25 07:45 Bisacodyl 10 Mg Suppository RECTAL QAM PRN Constipation Carbidopa/Levodopa 2 tablet 08/10/25 00:00 08/12/25 06:13 Carbidopa/Levodopa 25/100 Mg Tablet FEED TUBE 2 tablet DAILY@00,03,06,21 DALE Administration Dextrose 12.5 gm 08/09/25 18:34 Dextrose 50% 25 Gm/50 Ml Syringe IV PUSH PRN PRN Hypoglycemia Protocol Enoxaparin Sodium 40 mg 08/10/25 09:00 08/12/25 08:15 Enoxaparin 40 Mg/0.4 Ml Syringe SUB-Q 40 mg DAILY DALE Administration Fluticasone Propionate 2 spray 08/08/25 09:01 Fluticasone Propionate 0.05% Na Spr 16 Gm Btl (*Bkc) NASAL PRN PRN allergies Furosemide 80 mg 08/12/25 16:00 Furosemide Inj 100 Mg/10 Ml Vial IV PUSH 08/12/25 16:01 ONCE ONE Glucagon 1 mg 08/09/25 18:34 Glucagon For Inj 1 Mg Vial IM PRN PRN Hypoglycemia Protocol Glucose 15 gm 08/09/25 18:34 Glucose Oral Gel 15 Gm Of Glucse In 37.5 Gm Tube PO PRN PRN Hypoglycemia Protocol Hydralazine HCl 20 mg 08/12/25 12:27 Hydralazine Hcl 20 Mg/Ml Vial IV PUSH Q4H PRN SBP more than 160 Propofol 100 mls @ 0 mls/hr 08/09/25 18:30 08/12/25 12:00 Diprivan IV CONT 0 mcg/kg/min On Hold: 08/12/25 11:17 .Q0M DALE 0 mls/hr Protocol Titration Dextrose 1,000 mls @ 100 mls/hr 08/09/25 18:34 Dextrose 5% 1,000 Ml IVPB PRN PRN Hypoglycemia Protocol Ceftriaxone Sodium 1 gm/ 50 mls @ 100 mls/hr 08/10/25 09:00 08/12/25 08:45 Sodium Chloride IVPB Infused Q24H DALE Infusion Insulin Aspart 2 - 5 units 08/10/25 12:00 08/12/25 13:15 Insulin Aspart (*Bkc) 100 Units/Ml SUB-Q Not Given Q6HR DALE Protocol Multi-Ingred Cream/Lotion/Oil/Oint 1 applic 08/09/25 21:00 08/12/25 08:33 Mineral Oil/White Petrolatum Ointment EACH EYE 1 applic Q12HR DALE Administration Pantoprazole Sodium 40 mg 08/10/25 09:00 08/12/25 08:15 Pantoprazole Sodium Iv 40 Mg Vial IV PUSH 40 mg QAM DALE Administration Polyethylene Glycol 17 gm 08/10/25 09:00 08/12/25 08:14 Polyethylene Glycol 3350 17 Gm Powd.Pack FEED TUBE 17 gm QAM DALE Administration Potassium Chloride 40 meq 08/12/25 07:55 08/12/25 13:17 Potassium Chloride 20 Meq Packet (For Liquid) FEED TUBE 08/12/25 13:56 40 meq Q6H DALE Administration Pramipexole Dihydrochloride 1 mg 08/10/25 09:00 08/12/25 13:17 Pramipexole 1 Mg Tablet FEED TUBE 1 mg TID DALE Administration Senna/Docusate Sodium 2 tab 08/10/25 09:00 08/12/25 08:15 Senna/Docusate Sodium Tablet FEED TUBE 2 tab BID DALE Administration Trazodone HCl 100 mg 08/08/25 21:00 08/09/25 21:40 Trazodone Hcl 50 Mg Tablet PO Not Given On Hold: 08/09/25 21:00 QHS DALE Resume: 08/16/25 09:00 Radiology Results: ITS Impressions Knee X-Ray 08/07/25 18:51 IMPRESSION: 1. No acute bony lesions. 2 osteopenic bones. Severe arthritis predominantly of patellofemoral joint. Please correlate with DEXA densitometry. 3 if symptoms are localized and persistent, MRI is indicated. Venous Doppler Study 08/07/25 20:49 IMPRESSION: 1. No deep venous thrombosis in the right lower extremity veins.. Ankle X-Ray 08/09/25 14:44 Impression: No acute fracture or malalignment. Wrist X-Ray 08/09/25 14:44 Impression: No acute fracture or malalignment. Head CT 08/09/25 20:23 IMPRESSION: 1. No acute findings in this limited noncontrast CT head. Chest/Abdomen/Pelvis CT 08/09/25 20:29 IMPRESSION: 1. Limited noncontrast examination is not optimal to evaluate solid viscera, vascular structures and neoplasms. 2. No acute pulmonary findings. Minimal platelike atelectasis of lung bases. 3. Tip of the endotracheal tube is low in position, just above the allie. Please reposition this ET tube more proximally by approximately 2.5 to 3 cm. 4. No acute findings in the abdomen and pelvis. Other findings as mentioned above. Chest X-Ray 08/12/25 08:40 IMPRESSION: 1. No significant change. 2. Left basilar atelectasis and/or airspace disease with probable effusion. Labs Labs: Laboratory Results - last 24 hr 08/11/25 08/11/25 08/12/25 17:57 18:19 00:24 WBC RBC Hgb Hct MCV MCH MCHC RDW Plt Count MPV Puncture Site ABG pH ABG pCO2 ABG pO2 ABG PO2/FiO2 Ratio ABG HCO3 ABG O2 Saturation ABG O2 Content ABG Base Excess A-a Gradient Oxyhemoglobin Carboxyhemoglobin Methemoglobin Reduced Hemoglobin Total Hemoglobin O2 Delivery Device O2 Liters/Min Minute Volume Vent Rate Vent Mode FiO2 Tidal Volume PEEP Peak Inspir Pressure Pressure Support Sodium 135 L Potassium 3.8 Chloride 97 L Carbon Dioxide 34 H Anion Gap 4 BUN 21 H Creatinine 0.78 Estim Creat Clear Calc 90 Estimated GFR > 60 Glucose 128 H POC Capillary Glucose 126 H 137 H Calcium 8.5 Magnesium Total Bilirubin AST ALT Alkaline Phosphatase Total Protein Albumin 08/12/25 08/12/25 08/12/25 03:56 04:28 06:15 WBC 10.7 H RBC 4.32 L Hgb 12.5 L Hct 39.0 L MCV 90.3 MCH 28.9 MCHC 32.1 RDW 12.9 Plt Count 222 MPV 11.3 H Puncture Site Left radial ABG pH 7.463 H ABG pCO2 46.8 H ABG pO2 82.5 ABG PO2/FiO2 Ratio 2.06 ABG HCO3 32.8 H ABG O2 Saturation 96.6 ABG O2 Content 18.2 ABG Base Excess 7.8 A-a Gradient 148.9 Oxyhemoglobin 96.2 Carboxyhemoglobin 0.4 Methemoglobin 0.0 Reduced Hemoglobin 3.4 Total Hemoglobin 13.4 O2 Delivery Device Ventilator O2 Liters/Min Not Reportable Minute Volume Not Reportable Vent Rate 16 Vent Mode Cmv FiO2 40 Tidal Volume 400 PEEP 8 Peak Inspir Pressure Not Reportable Pressure Support Not Reportable Sodium 137 Potassium 3.3 L Chloride 99 Carbon Dioxide 33 H Anion Gap 5 BUN 28 H Creatinine 0.77 Estim Creat Clear Calc 91 Estimated GFR > 60 Glucose 141 H POC Capillary Glucose 124 H Calcium 8.4 Magnesium 2.3 Total Bilirubin 0.6 AST 26 ALT < 6 L Alkaline Phosphatase 74 Total Protein 6.3 Albumin 3.4 L 08/12/25 08/12/25 10:41 12:50 WBC RBC Hgb Hct MCV MCH MCHC RDW Plt Count MPV Puncture Site Right radial ABG pH 7.496 H ABG pCO2 42.5 ABG pO2 64.9 L ABG PO2/FiO2 Ratio 1.62 ABG HCO3 32.1 H ABG O2 Saturation 94.2 L ABG O2 Content 18.3 ABG Base Excess 8.0 A-a Gradient 171.4 Oxyhemoglobin 92.9 Carboxyhemoglobin 0.6 Methemoglobin 0.3 Reduced Hemoglobin 6.2 H Total Hemoglobin 14.0 O2 Delivery Device Ventilator O2 Liters/Min Not Reportable Minute Volume Not Reportable Vent Rate Not Reportable Vent Mode Spontaneous FiO2 40 Tidal Volume Not Reportable PEEP 8 Peak Inspir Pressure Not Reportable Pressure Support 8 Sodium Potassium Chloride Carbon Dioxide Anion Gap BUN Creatinine Estim Creat Clear Calc Estimated GFR Glucose POC Capillary Glucose 138 H Calcium Magnesium Total Bilirubin AST ALT Alkaline Phosphatase Total Protein Albumin
[2025-08-12] MEDS: ACETAMINOPHEN ELIXIR 325 MG/10.15 ML UDC 650 MG FEED TUBE (14:05)
[2025-08-12] MEDS: MORPHINE SULFATE (*CRX) 4 MG/ML INJ IV PUSH (14:46)
[2025-08-12] MEDS: PROPOFOL IV EMULSION 100 ML 33.67 MG IV CONT ×2 (15:18→17:56)
[2025-08-12 18:51] LABS: Anion Gap 6 mmol/L (4-12); Blood Urea Nitrogen 34 mg/dL (9-20); Calcium 8.4 mg/dL (8.4-10.2); Carbon Dioxide 33 mmol/L (22-30); Chloride 98 mmol/L (98-107); Estimated CRCL calculation 78 ml/min; Estimated Glomerular Filt Rate > 60; Glucose 148 mg/dL (65-110); Potassium 4.1 mmol/L (3.4-5.0); Sodium 137 mmol/L (137-145)
[2025-08-12] MEDS: PROPOFOL IV EMULSION 100 ML 29.93 MG IV CONT (21:00)
[2025-08-13] VITALS (42 sets, daily range): BP systolic 118–172; BP diastolic 46–85; PULSE 71–106; RESP 17–42; TEMP 37–38; O2SAT 91–100
[2025-08-13] MEDS: CARBIDOPA/LEVODOPA 25/100 MG TABLET 2 TABLET FEED TUBE ×5 (00:06→23:45)
[2025-08-13] MEDS: PROPOFOL IV EMULSION 100 ML 26.19 MG IV CONT ×2 (00:48→04:08)
[2025-08-13 03:58] LABS: Hematocrit 39.8 % (42.0-52.0); Hemoglobin 12.6 g/dL (14.0-18.0); Mean Corpuscular HGB Conc 31.7 g/dl (32-36); Mean Corpuscular Hemoglobin 28.7 pg (26-34); Mean Corpuscular Volume 90.7 fl (80-100); Platelet Count Result 264 k/mm3 (150-375); Red Blood Count 4.39 M/mm3 (4.6-6.20); White Blood Count 12.4 K/mm3 (4.5-10.0)
[2025-08-13 04:19] LABS: Alanine Aminotransferase 10 U/L (6-50); Albumin Level 3.5 g/dL (3.5-5.1); Alkaline Phosphatase 68 U/L (38-126); Anion Gap 5 mmol/L (4-12); Aspartate Amino Transferase 40 U/L (17-59); Bilirubin,Total 0.8 mg/dL (0.2-1.3); Blood Urea Nitrogen 43 mg/dL (9-20); Calcium 8.4 mg/dL (8.4-10.2); Carbon Dioxide 33 mmol/L (22-30); Chloride 98 mmol/L (98-107); Estimated CRCL calculation 77 ml/min; Estimated Glomerular Filt Rate > 60; Glucose 155 mg/dL (65-110); Magnesium 2.6 mg/dL (1.6-2.3); Potassium 3.8 mmol/L (3.4-5.0); Sodium 136 mmol/L (137-145); Total Protein 6.6 g/dL (6.3-8.2)
[2025-08-13 04:20] LABS: Alveolar/Arterial O2 Gradient 151.6 mmHg; Carboxyhemoglobin 0.6 % THb (0-2.0); Fractional Inspired Oxygen 40 %; HCO3 ABG 32.5 mEq/l (22.0-26.0); Methemoglobin ABG 0.1 %THb (0-1.5); Oxygen Content ABG 18.1 %vol (16.0-22.0); Oxygen Saturation ABG 96.2 % (95.0-100.0); PCO2 ABG 46.8 mmHg (35.0-45.0); PO2 ABG 79.8 mmHg (80.0-100.0); PO2 FiO2 Ratio Arterial Blood 2.00 %; Reduced Hemoglobin 3.7 %THb (0-5.0)
[2025-08-13 04:22] LABS: Arterial Blood Gas Ventilator rate 16 /MIN; Modified Allen's Test Pass; Site Drawn RIGHT RADIAL
[2025-08-13 04:23] LABS: Arterial Blood Gas Tidal Volume 400 ml
[2025-08-13] MEDS: PROPOFOL IV EMULSION 100 ML 14.96 MG IV CONT (07:55)
[2025-08-13] MEDS: PANTOPRAZOLE SODIUM IV 40 MG VIAL IV PUSH (07:59)
[2025-08-13] MEDS: cefTRIAXone 1 GM in SODIUM CHLORIDE 0.9% IV 50 ML 100 ML IVPB (08:00)
[2025-08-13] MEDS: MINERAL OIL/WHITE PETROLATUM OINTMENT 1 APPLIC EACH EYE ×2 (08:00→20:12)
[2025-08-13] MEDS: ENOXAPARIN 40 MG/0.4 ML SYRINGE SUB-Q (08:00)
[2025-08-13] MEDS: SENNA/DOCUSATE SODIUM TABLET 2 TAB FEED TUBE ×2 (08:00→16:45)
[2025-08-13] MEDS: BISACODYL 10 MG SUPPOSITORY RECTAL (08:00)
[2025-08-13] MEDS: PRAMIPEXOLE 1 MG TABLET FEED TUBE ×3 (08:01→17:49)
--- NOTE | 2025-08-13 08:54 | WPDINTPN2 ---
Assessment and Plan Assessment and Plan (1) Acute respiratory failure: Code(s): J96.00 - Acute respiratory failure, unspecified whether with hypoxia or hypercapnia Status: Acute Assessment and Plan: Acute respiratory failure secondary to altered mental status and pulmonary edema Patient now intubated and sedated ABG reviewed. Continue CMV at tidal volume 400 and rate 16 on 40% FiO2 and 8 of PEEP Continue propofol for sedation. Continue Lasix IV for congestive heart failure 08/12 sedation holiday was performed and patient was trialed on PSV. Patient initially did well but eventually became more tachypneic with increased heart rate and blood pressure. On holding sedation patient appears very weak with unable to lift his hands or feet. I spoke to patient's about how he was doing prior to getting admitted. She states that he has been having difficulty breathing for last few weeks. She also felt that he was getting weaker and also had trouble swallowing. 08/13 will perform sedation holiday again today. Will assess for weaning trial. Continue Lasix (2) Parkinson disease: Qualifiers: Dyskinesia presence: unspecified whether dyskinesia Fluctuating manifestations: unspecified whether manifestations fluctuate Qualified Code(s): G20.A1 - Parkinson's disease without dyskinesia, without mention of fluctuations Code(s): G20 - Parkinson's disease Status: Acute Assessment and Plan: Continue levodopa carbidopa by enteral tube Continue Mirapex amantadine is on hold since is cannot be given through the tube Will discuss with Neurology (3) Congestive heart failure: Code(s): I50.9 - Heart failure, unspecified Status: Acute Assessment and Plan: Patient has edema on exam and echo shows diastolic dysfunction. I checked a BNP and was elevated Continuet Lasix IV (4) UTI (urinary tract infection): Code(s): N39.0 - Urinary tract infection, site not specified Status: Acute Assessment and Plan: Check urine culture and continue Rocephin (5) Agitation: Code(s): R45.1 - Restlessness and agitation Status: Acute Assessment and Plan: Not sure of the episode of agitation that patient had yesterday he appears to be confused and agitated and which could be delirium peer head CT was negative Currently sedated with propofol (6) Electrolyte abnormality: Code(s): E87.8 - Other disorders of electrolyte and fluid balance, not elsewhere classified Status: Acute Assessment and Plan: Replace low K (7) Fever: Code(s): R50.9 - Fever, unspecified Status: Acute Assessment and Plan: On Rocephin Repeat blood cultures Change to cefepime and vancomycin Plan DVT prophylaxis -Lovenox Stress ulcer prophylaxis -PPI Nutrition -continue Tube Feeds Code Status - Full Code I spoke to and updated patient's and daughter at bedside yesterday and answered all their questions. Total Critical Care Time - 30 minutes Due to a high probability of clinically significant, life threatening deterioration, the patient required my highest level of preparedness to intervene emergently and I personally spent this critical care time directly and personally managing the patient. This critical care time included obtaining a history; examining the patient; pulse oximetry; ordering and review of studies; arranging urgent treatment with development of a management plan; evaluation of patient's response to treatment; frequent reassessment; and discussions with other providers. It was exclusive of separately billable procedures and treating other patients and teaching time. Please see Assessment and Plan section and the rest of the note for further information on patient assessment and treatment Subjective Date/time seen: 08/13/25 Overnight events reviewed. febrile overnight but afebrile this morning Continues to be on mechanical ventilation 40% FiO2 Good urine output in response to diuretic Continues to be sedated with propofol Other Vitals acceptable Feeding tube feed Failed his weaning trial Interval history: Patient on breathing trial this a.m.. Family at bedside discussed with her. Remains on vent. Review of Systems Review of Systems: ROS unobtainable: Yes unobtainable due to endotracheal tube, unobtainable due to medical condition and unobtainable due to mental status Exam Narrative: General: Pt is sedated, intubated and on mechanical ventilation Lungs/Chest: Trachea central Coarse BS B/L, No crackles or wheezing. Cardiac: RRR. Normal S1 S2. No murmurs Circulation: Pedal pulses are intact and symmetrical. Abdomen: Decreased bowel sounds. Obese. Soft. NT. ND. Extremities: No clubbing, cyanosis, mild pedal edema present : Brower in place Neurologic: Unable to assess due to sedation. Moves all 4 extremities to painful stimuli. PERRL. On holding sedation commands and was able to move his toes and hands but was unable lift his arms up. He would notice head appropriately to questions but appeared very weak Objective Data Vital Signs Vital Signs: Vital Signs - 24 hr 08/12/25 09:00 08/12/25 09:20 08/12/25 09:30 Temperature 36.9 C Pulse Rate 66 69 71 Respiratory Rate 24 H 23 H Blood Pressure 137/54 L Pulse Oximetry 98 97 Oxygen Delivery Mechanical Ventilation Fraction of Inspired Oxygen 40 08/12/25 09:35 08/12/25 09:44 08/12/25 09:44 Temperature 36.9 C Pulse Rate 66 72 Respiratory Rate 24 H 19 Blood Pressure 137/54 L Pulse Oximetry 96 Oxygen Delivery Fraction of Inspired Oxygen 40 08/12/25 09:45 08/12/25 10:00 08/12/25 10:00 Temperature 37.0 C Pulse Rate 75 75 77 Respiratory Rate 23 H 24 H Blood Pressure 147/56 H Pulse Oximetry 96 Oxygen Delivery Fraction of Inspired Oxygen 08/12/25 11:00 08/12/25 11:17 08/12/25 11:35 Temperature 37.3 C Pulse Rate 70 70 100 Respiratory Rate 22 H 22 H Blood Pressure 148/59 H Pulse Oximetry 100 95 Oxygen Delivery Mechanical Ventilation Fraction of Inspired Oxygen 40 08/12/25 12:00 08/12/25 12:00 08/12/25 12:00 Temperature 37.5 C Pulse Rate 84 Respiratory Rate 21 H Blood Pressure 172/59 H Pulse Oximetry 95 95 Oxygen Delivery Mechanical Ventilation Fraction of Inspired Oxygen 40 40 08/12/25 12:00 08/12/25 12:00 08/12/25 13:00 Temperature 37.7 C H Pulse Rate 85 84 85 Respiratory Rate 24 H 24 H Blood Pressure 158/52 H Pulse Oximetry 95 Oxygen Delivery Fraction of Inspired Oxygen 08/12/25 13:50 08/12/25 13:51 08/12/25 13:52 Temperature Pulse Rate 101 H 99 Respiratory Rate 29 H Blood Pressure Pulse Oximetry 96 Oxygen Delivery Mechanical Ventilation Fraction of Inspired Oxygen 40 40 08/12/25 14:00 08/12/25 14:00 08/12/25 14:04 Temperature 38.0 C H Pulse Rate 96 96 96 Respiratory Rate 27 H 27 H Blood Pressure 182/59 H Pulse Oximetry 96 Oxygen Delivery Fraction of Inspired Oxygen 08/12/25 14:05 08/12/25 14:14 08/12/25 14:30 Temperature 38.0 C H Pulse Rate 101 H 105 H Respiratory Rate 35 H 32 H Blood Pressure Pulse Oximetry Oxygen Delivery Fraction of Inspired Oxygen 08/12/25 14:45 08/12/25 15:00 08/12/25 15:05 Temperature 38.2 C H 38.2 C H Pulse Rate 102 H 97 Respiratory Rate 33 H 27 H Blood Pressure 139/50 L Pulse Oximetry 93 Oxygen Delivery Fraction of Inspired Oxygen 08/12/25 15:18 08/12/25 15:18 08/12/25 16:00 Temperature 38.2 C H Pulse Rate 87 87 82 Respiratory Rate 20 20 21 H Blood Pressure 120/50 L Pulse Oximetry 96 Oxygen Delivery Fraction of Inspired Oxygen 08/12/25 16:00 08/12/25 16:00 08/12/25 16:00 Temperature Pulse Rate 83 Respiratory Rate 21 H Blood Pressure Pulse Oximetry 96 Oxygen Delivery Mechanical Ventilation Fraction of Inspired Oxygen 40 40 08/12/25 16:00 08/12/25 17:00 08/12/25 17:03 Temperature 38.2 C H Pulse Rate 84 81 88 Respiratory Rate 20 Blood Pressure 128/56 L Pulse Oximetry 95 96 Oxygen Delivery Mechanical Ventilation Fraction of Inspired Oxygen 40 08/12/25 17:56 08/12/25 17:56 08/12/25 17:58 Temperature 38.3 C H Pulse Rate 80 80 82 Respiratory Rate 20 20 19 Blood Pressure 119/47 L Pulse Oximetry 96 Oxygen Delivery Fraction of Inspired Oxygen 08/12/25 17:59 08/12/25 19:00 08/12/25 20:00 Temperature 38.2 C H Pulse Rate 80 77 77 Respiratory Rate 19 18 Blood Pressure 116/48 L Pulse Oximetry 94 Oxygen Delivery Fraction of Inspired Oxygen 08/12/25 20:00 08/12/25 20:00 08/12/25 20:00 Temperature 38.2 C H Pulse Rate 77 78 Respiratory Rate 18 Blood Pressure 121/46 L Pulse Oximetry 93 Oxygen Delivery Fraction of Inspired Oxygen 40 08/12/25 20:00 08/12/25 20:00 08/12/25 21:00 Temperature Pulse Rate 80 79 Respiratory Rate 19 Blood Pressure Pulse Oximetry 93 94 Oxygen Delivery Mechanical Ventilation Mechanical Ventilation Fraction of Inspired Oxygen 40 40 08/12/25 21:00 08/12/25 21:00 08/12/25 22:00 Temperature 38.1 C H 37.9 C H Pulse Rate 79 79 78 Respiratory Rate 19 19 18 Blood Pressure 123/49 L 116/46 L Pulse Oximetry 94 94 Oxygen Delivery Fraction of Inspired Oxygen 08/12/25 22:00 08/12/25 22:00 08/12/25 23:00 Temperature 37.9 C H Pulse Rate 78 78 78 Respiratory Rate 18 18 Blood Pressure 125/47 L Pulse Oximetry 94 Oxygen Delivery Fraction of Inspired Oxygen 08/12/25 23:13 08/13/25 00:00 08/13/25 00:00 Temperature 37.9 C H Pulse Rate 77 76 76 Respiratory Rate 19 19 Blood Pressure 118/48 L Pulse Oximetry 94 95 Oxygen Delivery Mechanical Ventilation Fraction of Inspired Oxygen 40 08/13/25 00:00 08/13/25 00:00 08/13/25 00:00 Temperature Pulse Rate 77 Respiratory Rate Blood Pressure Pulse Oximetry 95 Oxygen Delivery Mechanical Ventilation Fraction of Inspired Oxygen 40 40 08/13/25 00:47 08/13/25 00:48 08/13/25 01:00 Temperature 37.9 C H Pulse Rate 76 76 76 Respiratory Rate 22 H 22 H 22 H Blood Pressure 128/48 L Pulse Oximetry 96 Oxygen Delivery Fraction of Inspired Oxygen 08/13/25 02:00 08/13/25 02:00 08/13/25 02:00 Temperature 37.9 C H Pulse Rate 77 77 77 Respiratory Rate 21 H 21 H Blood Pressure 130/50 L Pulse Oximetry 95 Oxygen Delivery Fraction of Inspired Oxygen 08/13/25 02:40 08/13/25 03:00 08/13/25 04:00 Temperature 37.8 C H Pulse Rate 77 77 Respiratory Rate 21 H Blood Pressure 136/52 L Pulse Oximetry 95 96 Oxygen Delivery Mechanical Ventilation Fraction of Inspired Oxygen 40 40 08/13/25 04:00 08/13/25 04:00 08/13/25 04:00 Temperature 37.7 C H Pulse Rate 74 74 75 Respiratory Rate 19 19 Blood Pressure 129/47 L Pulse Oximetry 96 Oxygen Delivery Fraction of Inspired Oxygen 08/13/25 04:00 08/13/25 04:08 08/13/25 04:08 Temperature Pulse Rate 75 75 Respiratory Rate 21 H 21 H Blood Pressure Pulse Oximetry 96 Oxygen Delivery Mechanical Ventilation Fraction of Inspired Oxygen 40 08/13/25 04:47 08/13/25 05:00 08/13/25 06:00 Temperature 37.6 C H Pulse Rate 75 73 74 Respiratory Rate 19 20 Blood Pressure 129/46 L Pulse Oximetry 96 96 Oxygen Delivery Mechanical Ventilation Fraction of Inspired Oxygen 40 08/13/25 06:00 08/13/25 06:00 08/13/25 07:00 Temperature 37.6 C 37.5 C Pulse Rate 74 74 73 Respiratory Rate 20 17 Blood Pressure 132/72 130/49 L Pulse Oximetry 96 95 Oxygen Delivery Fraction of Inspired Oxygen 08/13/25 07:54 08/13/25 07:55 08/13/25 07:55 Temperature Pulse Rate 73 74 74 Respiratory Rate 21 H 21 H Blood Pressure Pulse Oximetry 95 Oxygen Delivery Mechanical Ventilation Fraction of Inspired Oxygen 40 08/13/25 08:00 08/13/25 08:00 08/13/25 08:00 Temperature 37.4 C Pulse Rate 71 Respiratory Rate 22 H Blood Pressure 137/53 L Pulse Oximetry 96 96 Oxygen Delivery Mechanical Ventilation Fraction of Inspired Oxygen 40 40 08/13/25 08:00 Temperature Pulse Rate 74 Respiratory Rate Blood Pressure Pulse Oximetry Oxygen Delivery Fraction of Inspired Oxygen Intake/Output Intake/Output: Intake & Output 08/10/25 08/11/25 08/12/25 08/13/25 23:59 23:59 23:59 23:59 Intake Total 1007.9 3243.7 2337.0 1121.3 Output Total 1900 5025 1925 575 Balance -892.1 -1781.3 412.0 546.3 Meds/Results Medications: Active Medications Generic Name Dose Route Start Last Admin Trade Name Freq PRN Reason Stop Dose Admin Acetaminophen 650 mg 08/09/25 22:21 08/12/25 14:05 Acetaminophen Elixir 325 Mg/10.15 Ml Udc FEED TUBE 650 mg Q4H PRN Administration Fever Albuterol 2 puff 08/08/25 09:01 Albuterol Sulfate (*Sp) Aerosol 1 Puff INHALATION Q4HRT PRN Shortness Of Breath Or Wheezing Amantadine HCl 100 mg 08/10/25 09:00 08/10/25 10:37 Amantadine Hcl 100 Mg Capsule FEED TUBE Not Given On Hold: 08/10/25 12:13 TID DALE Bisacodyl 10 mg 08/11/25 07:45 Bisacodyl 10 Mg Suppository RECTAL QAM PRN Constipation Carbidopa/Levodopa 2 tablet 08/10/25 00:00 08/13/25 06:07 Carbidopa/Levodopa 25/100 Mg Tablet FEED TUBE 2 tablet DAILY@00,03,06,21 DALE Administration Dextrose 12.5 gm 08/09/25 18:34 Dextrose 50% 25 Gm/50 Ml Syringe IV PUSH PRN PRN Hypoglycemia Protocol Enoxaparin Sodium 40 mg 08/10/25 09:00 08/13/25 08:00 Enoxaparin 40 Mg/0.4 Ml Syringe SUB-Q 40 mg DAILY DALE Administration Fluticasone Propionate 2 spray 08/08/25 09:01 Fluticasone Propionate 0.05% Na Spr 16 Gm Btl (*Bkc) NASAL PRN PRN allergies Glucagon 1 mg 08/09/25 18:34 Glucagon For Inj 1 Mg Vial IM PRN PRN Hypoglycemia Protocol Glucose 15 gm 08/09/25 18:34 Glucose Oral Gel 15 Gm Of Glucse In 37.5 Gm Tube PO PRN PRN Hypoglycemia Protocol Hydralazine HCl 20 mg 08/12/25 12:27 08/12/25 14:05 Hydralazine Hcl 20 Mg/Ml Vial IV PUSH 20 mg Q4H PRN Administration SBP more than 160 Propofol 100 mls @ 14.964 mls/hr 08/09/25 18:30 08/13/25 07:55 Diprivan IV CONT 20 mcg/kg/min .Q6H41M DALE 14.96 mls/hr Protocol Administration 20 MCG/KG/MIN Dextrose 1,000 mls @ 100 mls/hr 08/09/25 18:34 Dextrose 5% 1,000 Ml IVPB PRN PRN Hypoglycemia Protocol Ceftriaxone Sodium 1 gm/ 50 mls @ 100 mls/hr 08/10/25 09:00 08/13/25 08:00 Sodium Chloride IVPB 100 mls/hr Q24H DALE Administration Insulin Aspart 2 - 5 units 08/10/25 12:00 08/13/25 06:08 Insulin Aspart (*Bkc) 100 Units/Ml SUB-Q Not Given Q6HR [facility] Protocol Morphine Sulfate 4 mg 08/12/25 14:33 08/12/25 14:46 Morphine Sulfate (*Crx) 4 Mg/Ml Inj IV PUSH 4 mg Q1H PRN Administration Pain while on vent Multi-Ingred Cream/Lotion/Oil/Oint 1 applic 08/09/25 21:00 08/13/25 08:00 Mineral Oil/White Petrolatum Ointment EACH EYE 1 applic Q12HR DALE Administration Pantoprazole Sodium 40 mg 08/10/25 09:00 08/13/25 07:59 Pantoprazole Sodium Iv 40 Mg Vial IV PUSH 40 mg QAM DALE Administration Polyethylene Glycol 17 gm 08/10/25 09:00 08/13/25 08:00 Polyethylene Glycol 3350 17 Gm Powd.Pack FEED TUBE 17 gm QAM DALE Administration Pramipexole Dihydrochloride 1 mg 08/10/25 09:00 08/13/25 08:01 Pramipexole 1 Mg Tablet FEED TUBE 1 mg TID DALE Administration Senna/Docusate Sodium 2 tab 08/10/25 09:00 08/13/25 08:00 Senna/Docusate Sodium Tablet FEED TUBE 2 tab BID DALE Administration Trazodone HCl 100 mg 08/08/25 21:00 08/09/25 21:40 Trazodone Hcl 50 Mg Tablet PO Not Given On Hold: 08/09/25 21:00 QHS DALE Resume: 08/16/25 09:00 Radiology Results: ITS Impressions Knee X-Ray 08/07/25 18:51 IMPRESSION: 1. No acute bony lesions. 2 osteopenic bones. Severe arthritis predominantly of patellofemoral joint. Please correlate with DEXA densitometry. 3 if symptoms are localized and persistent, MRI is indicated. Venous Doppler Study 08/07/25 20:49 IMPRESSION: 1. No deep venous thrombosis in the right lower extremity veins.. Ankle X-Ray 08/09/25 14:44 Impression: No acute fracture or malalignment. Wrist X-Ray 08/09/25 14:44 Impression: No acute fracture or malalignment. Head CT 08/09/25 20:23 IMPRESSION: 1. No acute findings in this limited noncontrast CT head. Chest/Abdomen/Pelvis CT 08/09/25 20:29 IMPRESSION: 1. Limited noncontrast examination is not optimal to evaluate solid viscera, vascular structures and neoplasms. 2. No acute pulmonary findings. Minimal platelike atelectasis of lung bases. 3. Tip of the endotracheal tube is low in position, just above the allie. Please reposition this ET tube more proximally by approximately 2.5 to 3 cm. 4. No acute findings in the abdomen and pelvis. Other findings as mentioned above. Labs Labs: Laboratory Results - last 24 hr 08/12/25 08/12/25 08/12/25 10:41 12:50 17:08 WBC RBC Hgb Hct MCV MCH MCHC RDW Plt Count MPV Puncture Site Right radial ABG pH 7.496 H ABG pCO2 42.5 ABG pO2 64.9 L ABG PO2/FiO2 Ratio 1.62 ABG HCO3 32.1 H ABG O2 Saturation 94.2 L ABG O2 Content 18.3 ABG Base Excess 8.0 A-a Gradient 171.4 Oxyhemoglobin 92.9 Carboxyhemoglobin 0.6 Methemoglobin 0.3 Reduced Hemoglobin 6.2 H Total Hemoglobin 14.0 O2 Delivery Device Ventilator O2 Liters/Min Not Reportable Minute Volume Not Reportable Vent Rate Not Reportable Vent Mode Spontaneous FiO2 40 Tidal Volume Not Reportable PEEP 8 Peak Inspir Pressure Not Reportable Pressure Support 8 Sodium Potassium Chloride Carbon Dioxide Anion Gap BUN Creatinine Estim Creat Clear Calc Estimated GFR Glucose POC Capillary Glucose 138 H 139 H Calcium Magnesium Total Bilirubin AST ALT Alkaline Phosphatase Total Protein Albumin 08/12/25 08/13/25 08/13/25 18:32 00:01 03:48 WBC 12.4 H RBC 4.39 L Hgb 12.6 L Hct 39.8 L MCV 90.7 MCH 28.7 MCHC 31.7 L RDW 13.2 Plt Count 264 MPV 11.0 H Puncture Site ABG pH ABG pCO2 ABG pO2 ABG PO2/FiO2 Ratio ABG HCO3 ABG O2 Saturation ABG O2 Content ABG Base Excess A-a Gradient Oxyhemoglobin Carboxyhemoglobin Methemoglobin Reduced Hemoglobin Total Hemoglobin O2 Delivery Device O2 Liters/Min Minute Volume Vent Rate Vent Mode FiO2 Tidal Volume PEEP Peak Inspir Pressure Pressure Support Sodium 137 136 L Potassium 4.1 3.8 Chloride 98 98 Carbon Dioxide 33 H 33 H Anion Gap 6 5 BUN 34 H 43 H Creatinine 0.93 0.94 Estim Creat Clear Calc 78 77 Estimated GFR > 60 > 60 Glucose 148 H 155 H POC Capillary Glucose 143 H Calcium 8.4 8.4 Magnesium 2.6 H Total Bilirubin 0.8 AST 40 ALT 10 Alkaline Phosphatase 68 Total Protein 6.6 Albumin 3.5 08/13/25 08/13/25 04:14 06:06 WBC RBC Hgb Hct MCV MCH MCHC RDW Plt Count MPV Puncture Site Right radial ABG pH 7.459 H ABG pCO2 46.8 H ABG pO2 79.8 L ABG PO2/FiO2 Ratio 2.00 ABG HCO3 32.5 H ABG O2 Saturation 96.2 ABG O2 Content 18.1 ABG Base Excess 7.5 A-a Gradient 151.6 Oxyhemoglobin 95.6 Carboxyhemoglobin 0.6 Methemoglobin 0.1 Reduced Hemoglobin 3.7 Total Hemoglobin 13.4 O2 Delivery Device Ventilator O2 Liters/Min Not Reportable Minute Volume Not Reportable Vent Rate 16 Vent Mode Cmv FiO2 40 Tidal Volume 400 PEEP 8 Peak Inspir Pressure Not Reportable Pressure Support Not Reportable Sodium Potassium Chloride Carbon Dioxide Anion Gap BUN Creatinine Estim Creat Clear Calc Estimated GFR Glucose POC Capillary Glucose 147 H Calcium Magnesium Total Bilirubin AST ALT Alkaline Phosphatase Total Protein Albumin Quality VTE Prophylaxis VTE prophylaxis: pharmacologic ordered
[2025-08-13] MEDS: POTASSIUM CHLORIDE 20 MEQ PACKET (FOR LIQUID) 40 MEQ FEED TUBE (10:22)
[2025-08-13] MEDS: FUROSEMIDE INJ 100 MG/10 ML VIAL 80 MG IV PUSH ×2 (10:22→16:45)
[2025-08-13] MEDS: CEFEPIME 1 GM in SODIUM CHLORIDE 0.9% IV 50 ML 100 ML IVPB ×2 (10:22→20:11)
[2025-08-13] MEDS: VANCOMYCIN 1,250 MG/NS 250 ML 1,250 MG/250 ML BAG 166.67 MG IVPB ×2 (10:22→12:06)
[2025-08-13 11:31] LABS: MRSA (PCR) NOT DETECTED (NOT DETECTE)
[2025-08-13 12:20] LABS: Alveolar/Arterial O2 Gradient 167.2 mmHg; Fractional Inspired Oxygen 40 %; HCO3 ABG 31.2 mEq/l (22.0-26.0); Oxygen Content ABG 18.6 %vol (16.0-22.0); Oxygen Saturation ABG 95.3 % (95.0-100.0); PCO2 ABG 41.6 mmHg (35.0-45.0); PO2 ABG 70.2 mmHg (80.0-100.0); PO2 FiO2 Ratio Arterial Blood 1.75 %
[2025-08-13 12:22] LABS: Modified Allen's Test Pass; Site Drawn RIGHT RADIAL
[2025-08-13 12:23] LABS: Arterial Blood Gas Pressure Support 5 cmH2O
--- NOTE | 2025-08-13 14:06 | PM.IMPN2 ---
Assessment and Plan Assessment and Plan (1) Acute respiratory failure: Code(s): J96.00 - Acute respiratory failure, unspecified whether with hypoxia or hypercapnia Status: Acute Assessment and Plan: Acute respiratory failure secondary to altered mental status and pulmonary edema Patient now intubated and sedated Vent management per ICU (2) Parkinson disease: Qualifiers: Dyskinesia presence: unspecified whether dyskinesia Fluctuating manifestations: unspecified whether manifestations fluctuate Qualified Code(s): G20.A1 - Parkinson's disease without dyskinesia, without mention of fluctuations Code(s): G20 - Parkinson's disease Status: Acute Assessment and Plan: Continue levodopa carbidopa by enteral tube Continue Mirapex amantadine is on hold since is cannot be given through the tube (3) Congestive heart failure: Code(s): I50.9 - Heart failure, unspecified Status: Acute Assessment and Plan: Patient has edema on exam and echo shows diastolic dysfunction. Elevated BNP Continuet Lasix IV (4) UTI (urinary tract infection): Code(s): N39.0 - Urinary tract infection, site not specified Status: Acute Assessment and Plan: Check urine culture and continue Rocephin (5) Agitation: Code(s): R45.1 - Restlessness and agitation Status: Acute Assessment and Plan: Not sure of the episode of agitation that patient had yesterday he appears to be confused and agitated and which could be delirium peer head CT was negative Currently sedated with propofol (6) Electrolyte abnormality: Code(s): E87.8 - Other disorders of electrolyte and fluid balance, not elsewhere classified Status: Acute Assessment and Plan: Replace low K Plan DVT prophylaxis -Lovenox Stress ulcer prophylaxis -PPI Nutrition -continue Tube Feeds Code Status - Full Code Subjective Date/time seen: 08/13/25 14:06 Interval history: Patient planned to be extubated this afternoon NG tube placed. Discussed with nursing staff. Labs reviewed. Review of Systems Review of Systems: ROS unobtainable: Yes unobtainable due to medical condition Exam Narrative: General: Pt is sedated, intubated and on mechanical ventilation Lungs/Chest: Trachea central Coarse BS B/L, No crackles or wheezing. Cardiac: RRR. Normal S1 S2. No murmurs Circulation: Pedal pulses are intact and symmetrical. Abdomen: Decreased bowel sounds. Obese. Soft. NT. ND. Extremities: No clubbing, cyanosis, mild pedal edema present : Brower in place Neurologic: Unable to assess due to sedation. Moves all 4 extremities to painful stimuli. PERRL. On holding sedation he follows command Objective Data Vital Signs Vital Signs: Vital Signs - 24 hr 08/12/25 14:14 08/12/25 14:30 08/12/25 14:45 Temperature Pulse Rate 101 H 105 H 102 H Respiratory Rate 35 H 32 H 33 H Blood Pressure Pulse Oximetry Oxygen Delivery Oxygen Flow Rate Fraction of Inspired Oxygen 08/12/25 15:00 08/12/25 15:05 08/12/25 15:18 Temperature 100.7 F H 100.7 F H Pulse Rate 97 87 Respiratory Rate 27 H 20 Blood Pressure 139/50 L Pulse Oximetry 93 Oxygen Delivery Oxygen Flow Rate Fraction of Inspired Oxygen 08/12/25 15:18 08/12/25 16:00 08/12/25 16:00 Temperature 100.7 F H Pulse Rate 87 82 Respiratory Rate 20 21 H Blood Pressure 120/50 L Pulse Oximetry 96 Oxygen Delivery Oxygen Flow Rate Fraction of Inspired Oxygen 40 08/12/25 16:00 08/12/25 16:00 08/12/25 16:00 Temperature Pulse Rate 83 84 Respiratory Rate 21 H Blood Pressure Pulse Oximetry 96 Oxygen Delivery Mechanical Ventilation Oxygen Flow Rate Fraction of Inspired Oxygen 40 08/12/25 17:00 08/12/25 17:03 08/12/25 17:56 Temperature 100.8 F H Pulse Rate 81 88 80 Respiratory Rate 20 20 Blood Pressure 128/56 L Pulse Oximetry 95 96 Oxygen Delivery Mechanical Ventilation Oxygen Flow Rate Fraction of Inspired Oxygen 40 08/12/25 17:56 08/12/25 17:58 08/12/25 17:59 Temperature 100.9 F H Pulse Rate 80 82 80 Respiratory Rate 20 19 Blood Pressure 119/47 L Pulse Oximetry 96 Oxygen Delivery Oxygen Flow Rate Fraction of Inspired Oxygen 08/12/25 19:00 08/12/25 20:00 08/12/25 20:00 Temperature 100.8 F H 100.7 F H Pulse Rate 77 77 77 Respiratory Rate 19 18 18 Blood Pressure 116/48 L 121/46 L Pulse Oximetry 94 93 Oxygen Delivery Oxygen Flow Rate Fraction of Inspired Oxygen 08/12/25 20:00 08/12/25 20:00 08/12/25 20:00 Temperature Pulse Rate 78 Respiratory Rate Blood Pressure Pulse Oximetry 93 Oxygen Delivery Mechanical Ventilation Oxygen Flow Rate Fraction of Inspired Oxygen 40 40 08/12/25 20:00 08/12/25 21:00 08/12/25 21:00 Temperature Pulse Rate 80 79 79 Respiratory Rate 19 19 Blood Pressure Pulse Oximetry 94 Oxygen Delivery Mechanical Ventilation Oxygen Flow Rate Fraction of Inspired Oxygen 40 08/12/25 21:00 08/12/25 22:00 08/12/25 22:00 Temperature 100.5 F H 100.3 F H Pulse Rate 79 78 78 Respiratory Rate 19 18 Blood Pressure 123/49 L 116/46 L Pulse Oximetry 94 94 Oxygen Delivery Oxygen Flow Rate Fraction of Inspired Oxygen 08/12/25 22:00 08/12/25 23:00 08/12/25 23:13 Temperature 100.3 F H Pulse Rate 78 78 77 Respiratory Rate 18 18 Blood Pressure 125/47 L Pulse Oximetry 94 94 Oxygen Delivery Mechanical Ventilation Oxygen Flow Rate Fraction of Inspired Oxygen 40 08/13/25 00:00 08/13/25 00:00 08/13/25 00:00 Temperature 100.2 F H Pulse Rate 76 76 Respiratory Rate 19 19 Blood Pressure 118/48 L Pulse Oximetry 95 Oxygen Delivery Oxygen Flow Rate Fraction of Inspired Oxygen 40 08/13/25 00:00 08/13/25 00:00 08/13/25 00:47 Temperature Pulse Rate 77 76 Respiratory Rate 22 H Blood Pressure Pulse Oximetry 95 Oxygen Delivery Mechanical Ventilation Oxygen Flow Rate Fraction of Inspired Oxygen 40 08/13/25 00:48 08/13/25 01:00 08/13/25 02:00 Temperature 100.2 F H Pulse Rate 76 76 77 Respiratory Rate 22 H 22 H Blood Pressure 128/48 L Pulse Oximetry 96 Oxygen Delivery Oxygen Flow Rate Fraction of Inspired Oxygen 08/13/25 02:00 08/13/25 02:00 08/13/25 02:40 Temperature 100.2 F H Pulse Rate 77 77 77 Respiratory Rate 21 H 21 H Blood Pressure 130/50 L Pulse Oximetry 95 95 Oxygen Delivery Mechanical Ventilation Oxygen Flow Rate Fraction of Inspired Oxygen 40 08/13/25 03:00 08/13/25 04:00 08/13/25 04:00 Temperature 100.1 F H 99.8 F H Pulse Rate 77 74 Respiratory Rate 21 H 19 Blood Pressure 136/52 L 129/47 L Pulse Oximetry 96 96 Oxygen Delivery Oxygen Flow Rate Fraction of Inspired Oxygen 40 08/13/25 04:00 08/13/25 04:00 08/13/25 04:00 Temperature Pulse Rate 74 75 Respiratory Rate 19 Blood Pressure Pulse Oximetry 96 Oxygen Delivery Mechanical Ventilation Oxygen Flow Rate Fraction of Inspired Oxygen 40 08/13/25 04:08 08/13/25 04:08 08/13/25 04:47 Temperature Pulse Rate 75 75 75 Respiratory Rate 21 H 21 H Blood Pressure Pulse Oximetry 96 Oxygen Delivery Mechanical Ventilation Oxygen Flow Rate Fraction of Inspired Oxygen 40 08/13/25 05:00 08/13/25 06:00 08/13/25 06:00 Temperature 99.7 F H 99.6 F Pulse Rate 73 74 74 Respiratory Rate 19 20 20 Blood Pressure 129/46 L 132/72 Pulse Oximetry 96 96 Oxygen Delivery Oxygen Flow Rate Fraction of Inspired Oxygen 08/13/25 06:00 08/13/25 07:00 08/13/25 07:54 Temperature 99.5 F Pulse Rate 74 73 73 Respiratory Rate 17 Blood Pressure 130/49 L Pulse Oximetry 95 95 Oxygen Delivery Mechanical Ventilation Oxygen Flow Rate Fraction of Inspired Oxygen 40 08/13/25 07:55 08/13/25 07:55 08/13/25 08:00 Temperature Pulse Rate 74 74 Respiratory Rate 21 H 21 H Blood Pressure Pulse Oximetry 96 Oxygen Delivery Mechanical Ventilation Oxygen Flow Rate Fraction of Inspired Oxygen 40 08/13/25 08:00 08/13/25 08:00 08/13/25 08:00 Temperature 99.4 F Pulse Rate 71 74 Respiratory Rate 22 H Blood Pressure 137/53 L Pulse Oximetry 96 Oxygen Delivery Oxygen Flow Rate Fraction of Inspired Oxygen 40 08/13/25 09:00 08/13/25 10:00 08/13/25 10:00 Temperature 99.2 F Pulse Rate 75 73 73 Respiratory Rate 24 H 22 H Blood Pressure 145/53 H Pulse Oximetry 96 Oxygen Delivery Oxygen Flow Rate Fraction of Inspired Oxygen 08/13/25 10:00 08/13/25 10:20 08/13/25 11:00 Temperature 99.1 F 98.7 F Pulse Rate 72 71 74 Respiratory Rate 18 20 21 H Blood Pressure 134/53 L 142/57 H Pulse Oximetry 95 95 Oxygen Delivery Oxygen Flow Rate Fraction of Inspired Oxygen 08/13/25 11:00 08/13/25 11:00 08/13/25 11:20 Temperature 99.5 F Pulse Rate 75 73 Respiratory Rate 22 H 17 Blood Pressure 142/57 H Pulse Oximetry 95 Oxygen Delivery Oxygen Flow Rate Fraction of Inspired Oxygen 40 08/13/25 11:20 08/13/25 12:00 08/13/25 12:00 Temperature 98.9 F Pulse Rate 83 78 Respiratory Rate 21 H Blood Pressure 167/61 H Pulse Oximetry 96 96 96 Oxygen Delivery Mechanical Ventilation Mechanical Ventilation Oxygen Flow Rate Fraction of Inspired Oxygen 40 40 08/13/25 12:00 08/13/25 12:00 08/13/25 12:05 Temperature Pulse Rate 90 88 Respiratory Rate 28 H Blood Pressure Pulse Oximetry Oxygen Delivery Oxygen Flow Rate Fraction of Inspired Oxygen 40 08/13/25 13:00 08/13/25 13:05 08/13/25 13:05 Temperature 99.8 F H Pulse Rate 99 93 Respiratory Rate 30 H 21 H Blood Pressure 170/52 H Pulse Oximetry 95 94 Oxygen Delivery Mechanical Ventilation High Flow Nasal Cannula Oxygen Flow Rate 10 Fraction of Inspired Oxygen 08/13/25 14:00 08/13/25 14:00 Temperature Pulse Rate 96 96 Respiratory Rate 24 H Blood Pressure Pulse Oximetry Oxygen Delivery Oxygen Flow Rate Fraction of Inspired Oxygen Intake/Output Intake/Output: Intake & Output 08/10/25 08/11/25 08/12/25 08/13/25 23:59 23:59 23:59 23:59 Intake Total 1007.9 3243.7 2337.0 1512.5 Output Total 1900 5025 1925 575 Balance -892.1 -1781.3 412.0 937.5 Meds/Results Medications: Active Medications Generic Name Dose Route Start Last Admin Trade Name Freq PRN Reason Stop Dose Admin Acetaminophen 650 mg 08/09/25 22:21 08/12/25 14:05 Acetaminophen Elixir 325 Mg/10.15 Ml Udc FEED TUBE 650 mg Q4H PRN Administration Fever Albuterol 2 puff 08/08/25 09:01 Albuterol Sulfate (*Sp) Aerosol 1 Puff INHALATION Q4HRT PRN Shortness Of Breath Or Wheezing Amantadine HCl 100 mg 08/10/25 09:00 08/10/25 10:37 Amantadine Hcl 100 Mg Capsule FEED TUBE Not Given On Hold: 08/10/25 12:13 TID DALE Bisacodyl 10 mg 08/11/25 07:45 Bisacodyl 10 Mg Suppository RECTAL QAM PRN Constipation Carbidopa/Levodopa 2 tablet 08/10/25 00:00 08/13/25 06:07 Carbidopa/Levodopa 25/100 Mg Tablet FEED TUBE 2 tablet DAILY@00,03,06,21 DALE Administration Dextrose 12.5 gm 08/09/25 18:34 Dextrose 50% 25 Gm/50 Ml Syringe IV PUSH PRN PRN Hypoglycemia Protocol Enoxaparin Sodium 40 mg 08/10/25 09:00 08/13/25 08:00 Enoxaparin 40 Mg/0.4 Ml Syringe SUB-Q 40 mg DAILY DALE Administration Fluticasone Propionate 2 spray 08/08/25 09:01 Fluticasone Propionate 0.05% Na Spr 16 Gm Btl (*Bkc) NASAL PRN PRN allergies Furosemide 80 mg 08/13/25 09:00 08/13/25 10:22 Furosemide Inj 100 Mg/10 Ml Vial IV PUSH 08/14/25 17:01 80 mg BID DALE Administration Glucagon 1 mg 08/09/25 18:34 Glucagon For Inj 1 Mg Vial IM PRN PRN Hypoglycemia Protocol Glucose 15 gm 08/09/25 18:34 Glucose Oral Gel 15 Gm Of Glucse In 37.5 Gm Tube PO PRN PRN Hypoglycemia Protocol Hydralazine HCl 20 mg 08/12/25 12:27 08/12/25 14:05 Hydralazine Hcl 20 Mg/Ml Vial IV PUSH 20 mg Q4H PRN Administration SBP more than 160 Dextrose 1,000 mls @ 100 mls/hr 08/09/25 18:34 Dextrose 5% 1,000 Ml IVPB PRN PRN Hypoglycemia Protocol Cefepime HCl 1 gm/ Sodium 50 mls @ 100 mls/hr 08/13/25 11:00 08/13/25 11:52 Chloride IVPB Infused Q12HR DALE Infusion Vancomycin HCl 1,500 mg in 500 mls @ 250 mls/hr 08/14/25 04:00 Vancomycin 1,500 Mg/Ns 500 Ml IVPB Q18H [facility] Insulin Aspart 2 - 5 units 08/10/25 12:00 08/13/25 12:06 Insulin Aspart (*Bkc) 100 Units/Ml SUB-Q Not Given Q6HR [facility] [place] Protocol Morphine Sulfate 4 mg 08/12/25 14:33 08/12/25 14:46 Morphine Sulfate (*Crx) 4 Mg/Ml Inj IV PUSH 4 mg Q1H PRN Administration Pain while on vent Multi-Ingred Cream/Lotion/Oil/Oint 1 applic 08/09/25 21:00 08/13/25 08:00 Mineral Oil/White Petrolatum Ointment EACH EYE 1 applic Q12HR DALE Administration Pantoprazole Sodium 40 mg 08/10/25 09:00 08/13/25 07:59 Pantoprazole Sodium Iv 40 Mg Vial IV PUSH 40 mg QAM DALE Administration Polyethylene Glycol 17 gm 08/10/25 09:00 08/13/25 08:00 Polyethylene Glycol 3350 17 Gm Powd.Pack FEED TUBE 17 gm QAM DALE Administration Pramipexole Dihydrochloride 1 mg 08/10/25 09:00 08/13/25 08:01 Pramipexole 1 Mg Tablet FEED TUBE 1 mg TID DALE Administration Senna/Docusate Sodium 2 tab 08/10/25 09:00 08/13/25 08:00 Senna/Docusate Sodium Tablet FEED TUBE 2 tab BID DALE Administration Trazodone HCl 100 mg 08/08/25 21:00 08/09/25 21:40 Trazodone Hcl 50 Mg Tablet PO Not Given On Hold: 08/09/25 21:00 QHS DALE Resume: 08/16/25 09:00 Radiology Results: ITS Impressions Knee X-Ray 08/07/25 18:51 IMPRESSION: 1. No acute bony lesions. 2 osteopenic bones. Severe arthritis predominantly of patellofemoral joint. Please correlate with DEXA densitometry. 3 if symptoms are localized and persistent, MRI is indicated. Venous Doppler Study 08/07/25 20:49 IMPRESSION: 1. No deep venous thrombosis in the right lower extremity veins.. Ankle X-Ray 08/09/25 14:44 Impression: No acute fracture or malalignment. Wrist X-Ray 08/09/25 14:44 Impression: No acute fracture or malalignment. Head CT 08/09/25 20:23 IMPRESSION: 1. No acute findings in this limited noncontrast CT head. Chest/Abdomen/Pelvis CT 08/09/25 20:29 IMPRESSION: 1. Limited noncontrast examination is not optimal to evaluate solid viscera, vascular structures and neoplasms. 2. No acute pulmonary findings. Minimal platelike atelectasis of lung bases. 3. Tip of the endotracheal tube is low in position, just above the allie. Please reposition this ET tube more proximally by approximately 2.5 to 3 cm. 4. No acute findings in the abdomen and pelvis. Other findings as mentioned above. Chest X-Ray 08/13/25 09:40 IMPRESSION: 1. No change. Labs Labs: Laboratory Results - last 24 hr 08/12/25 08/12/25 08/13/25 17:08 18:32 00:01 WBC RBC Hgb Hct MCV MCH MCHC RDW Plt Count MPV Puncture Site ABG pH ABG pCO2 ABG pO2 ABG PO2/FiO2 Ratio ABG HCO3 ABG O2 Saturation ABG O2 Content ABG Base Excess A-a Gradient Oxyhemoglobin Carboxyhemoglobin Methemoglobin Reduced Hemoglobin Total Hemoglobin O2 Delivery Device O2 Liters/Min Minute Volume Vent Rate Vent Mode FiO2 Tidal Volume PEEP Peak Inspir Pressure Pressure Support Sodium 137 Potassium 4.1 Chloride 98 Carbon Dioxide 33 H Anion Gap 6 BUN 34 H Creatinine 0.93 Estim Creat Clear Calc 78 Estimated GFR > 60 Glucose 148 H POC Capillary Glucose 139 H 143 H Calcium 8.4 Magnesium Total Bilirubin AST ALT Alkaline Phosphatase Total Protein Albumin Nasal MRSA (PCR) 08/13/25 08/13/25 08/13/25 03:48 04:14 06:06 WBC 12.4 H RBC 4.39 L Hgb 12.6 L Hct 39.8 L MCV 90.7 MCH 28.7 MCHC 31.7 L RDW 13.2 Plt Count 264 MPV 11.0 H Puncture Site Right radial ABG pH 7.459 H ABG pCO2 46.8 H ABG pO2 79.8 L ABG PO2/FiO2 Ratio 2.00 ABG HCO3 32.5 H ABG O2 Saturation 96.2 ABG O2 Content 18.1 ABG Base Excess 7.5 A-a Gradient 151.6 Oxyhemoglobin 95.6 Carboxyhemoglobin 0.6 Methemoglobin 0.1 Reduced Hemoglobin 3.7 Total Hemoglobin 13.4 O2 Delivery Device Ventilator O2 Liters/Min Not Reportable Minute Volume Not Reportable Vent Rate 16 Vent Mode Cmv FiO2 40 Tidal Volume 400 PEEP 8 Peak Inspir Pressure Not Reportable Pressure Support Not Reportable Sodium 136 L Potassium 3.8 Chloride 98 Carbon Dioxide 33 H Anion Gap 5 BUN 43 H Creatinine 0.94 Estim Creat Clear Calc 77 Estimated GFR > 60 Glucose 155 H POC Capillary Glucose 147 H Calcium 8.4 Magnesium 2.6 H Total Bilirubin 0.8 AST 40 ALT 10 Alkaline Phosphatase 68 Total Protein 6.6 Albumin 3.5 Nasal MRSA (PCR) 08/13/25 08/13/25 08/13/25 10:17 11:52 12:17 WBC RBC Hgb Hct MCV MCH MCHC RDW Plt Count MPV Puncture Site Right radial ABG pH 7.493 H ABG pCO2 41.6 ABG pO2 70.2 L ABG PO2/FiO2 Ratio 1.75 ABG HCO3 31.2 H ABG O2 Saturation 95.3 ABG O2 Content 18.6 ABG Base Excess 7.2 A-a Gradient 167.2 Oxyhemoglobin 94.3 Carboxyhemoglobin Methemoglobin Reduced Hemoglobin Total Hemoglobin 14.0 O2 Delivery Device Ventilator O2 Liters/Min Not Reportable Minute Volume Not Reportable Vent Rate Not Reportable Vent Mode Spontaneous FiO2 40 Tidal Volume Not Reportable PEEP 5 Peak Inspir Pressure Not Reportable Pressure Support 5 Sodium Potassium Chloride Carbon Dioxide Anion Gap BUN Creatinine Estim Creat Clear Calc Estimated GFR Glucose POC Capillary Glucose 127 H Calcium Magnesium Total Bilirubin AST ALT Alkaline Phosphatase Total Protein Albumin Nasal MRSA (PCR) Not detected
[2025-08-13] MEDS: ACETAMINOPHEN ELIXIR 325 MG/10.15 ML UDC 650 MG FEED TUBE (16:47)
--- NOTE | 2025-08-13 22:20 | PC.NURSE ---
Patient anxious, tachypneic, lung sounds unchanged, RN unable to redirect patient, Dr. Roa notified. New orders received.
--- NOTE | 2025-08-13 22:58 | PC.NURSE ---
Patient placed on BiPaP
[2025-08-14] VITALS (40 sets, daily range): BP systolic 115–178; BP diastolic 40–67; PULSE 46–104; RESP 12–37; TEMP 36.9–38.2; O2SAT 94–98
[2025-08-14] MEDS: CARBIDOPA/LEVODOPA 25/100 MG TABLET 2 TABLET FEED TUBE ×2 (03:00→20:39)
[2025-08-14] MEDS: VANCOMYCIN 1,500 MG/NS 500 ML 1,500 MG/500 ML BAG 250 MG IVPB ×2 (03:10→22:41)
[2025-08-14] MEDS: METOPROLOL TARTRATE 25 MG TABLET (04:58)
[2025-08-14 05:02] LABS: Hematocrit 43.7 % (42.0-52.0); Hemoglobin 13.2 g/dL (14.0-18.0); Mean Corpuscular HGB Conc 30.2 g/dl (32-36); Mean Corpuscular Hemoglobin 28.4 pg (26-34); Mean Corpuscular Volume 94.2 fl (80-100); Platelet Count Result 285 k/mm3 (150-375); Red Blood Count 4.64 M/mm3 (4.6-6.20); White Blood Count 13.7 K/mm3 (4.5-10.0)
[2025-08-14 05:33] LABS: HCO3 ABG 30.2 mEq/l (22.0-26.0); Oxygen Saturation ABG 97.2 % (95.0-100.0); PCO2 ABG 37.1 mmHg (35.0-45.0); PO2 ABG 83.1 mmHg (80.0-100.0)
[2025-08-14 05:34] LABS: Alveolar/Arterial O2 Gradient 231.7 mmHg; Carboxyhemoglobin 0.8 % THb (0-2.0); Methemoglobin ABG 0.2 %THb (0-1.5); Oxygen Content ABG 19.4 %vol (16.0-22.0)
[2025-08-14 05:35] LABS: Fractional Inspired Oxygen 50 %; Modified Allen's Test Pass; PO2 FiO2 Ratio Arterial Blood 1.66 %; Reduced Hemoglobin 2.6 %THb (0-5.0); Site Drawn LEFT RADIAL
[2025-08-14 05:36] LABS: Non-Invasive Expiratory Pressure 8 CMH2O; Non-Invasive Inspiratory Pressure 15 CMH2O; Non-Invasive Vent Rate 12 /MIN
[2025-08-14 05:53] LABS: Alanine Aminotransferase 8 U/L (6-50); Albumin Level 3.7 g/dL (3.5-5.1); Alkaline Phosphatase 111 U/L (38-126); Anion Gap 5 mmol/L (4-12); Aspartate Amino Transferase 52 U/L (17-59); Bilirubin,Total 0.8 mg/dL (0.2-1.3); Blood Urea Nitrogen 49 mg/dL (9-20); Calcium 8.8 mg/dL (8.4-10.2); Carbon Dioxide 32 mmol/L (22-30); Chloride 99 mmol/L (98-107); Estimated CRCL calculation 83 ml/min; Estimated Glomerular Filt Rate > 60; Glucose 179 mg/dL (65-110); Magnesium 2.9 mg/dL (1.6-2.3); Potassium 3.9 mmol/L (3.4-5.0); Sodium 136 mmol/L (137-145); Total Protein 6.9 g/dL (6.3-8.2)
[2025-08-14] MEDS: PRAMIPEXOLE 1 MG TABLET FEED TUBE (08:24)
[2025-08-14] MEDS: SENNA/DOCUSATE SODIUM TABLET 2 TAB FEED TUBE (08:24)
[2025-08-14] MEDS: METOPROLOL TARTRATE 25 MG TABLET FEED TUBE ×2 (08:25→20:36)
[2025-08-14] MEDS: CEFEPIME 1 GM in SODIUM CHLORIDE 0.9% IV 50 ML 100 ML IVPB (08:25)
[2025-08-14] MEDS: FUROSEMIDE INJ 100 MG/10 ML VIAL 80 MG IV PUSH ×2 (08:25→16:29)
[2025-08-14] MEDS: PANTOPRAZOLE SODIUM IV 40 MG VIAL IV PUSH (08:25)
[2025-08-14] MEDS: ENOXAPARIN 40 MG/0.4 ML SYRINGE SUB-Q (08:26)
[2025-08-14] MEDS: MINERAL OIL/WHITE PETROLATUM OINTMENT 1 APPLIC EACH EYE ×2 (08:41→20:35)
--- NOTE | 2025-08-14 10:23 | PCFNICU ---
ICU Rounding Note: Pt current nutrition is Tube feeding, Vital 1.2 @ goal rate 50 ml/h, flush 30 ml q 4 h. Nutrition recommendation: Maintain on Vial 1.2 @ 50 ml/h until bedside swallow eval can be done and then decision on PO intake/need for PEG. Last recorded weight is 122.2 kg. Bowel Motility: +1 BM 08/14 Labs Reviewed: Hgb 13.2, Na 136, BUN 49, Glu 179, Mag 2.9 Meds Noted: Lasix, miralax, jayna. Sedation off Skin: No skin issues noted Additional Notes: Pt is extubated, remains on NG tube feedings. Pt is too weak /sleepy for bedside swallow eval currently and per RN will attempt again later when more alert. Dereck continue with current Vital 1.2 @ 50 ml/h to provide 1320 kcal, 83 g protein, 892 ml free water (~67% EER) to maintain until bedside swallow can be completed. Following daily in ICU rounds. Will monitor weight, labs, skin, diet orders, meds every Thursday and Thursday. .
--- NOTE | 2025-08-14 11:56 | P.PNINT_ITS ---
Assessment and Plan Assessment and Plan (1) Acute respiratory failure: Code(s): J96.00 - Acute respiratory failure, unspecified whether with hypoxia or hypercapnia Status: Acute Assessment and Plan: Acute respiratory failure secondary to altered mental status, weakness from Parkinson's and pulmonary edema Patient was intubated and sedated 08/12 sedation holiday was performed and patient was trialed on PSV. Patient initially did well but eventually became more tachypneic with increased heart rate and blood pressure. On holding sedation patient appears very weak with unable to lift his hands or feet. I spoke to patient's about how he was doing prior to getting admitted. She states that he has been having difficulty breathing for last few weeks. She also felt that he was getting weaker and also had trouble swallowing. 08/13 weaning trial was performed. Patient appeared borderline but with adequate ABG and RSBI. Patient was extubated. He was placed on BiPAP overnight and BiPAP is p.r.n.. He wore BiPAP overnight and is now switched to a nasal cannula . He appears quite weak and requiring frequent suctioning to clear his respiratory secretions. . I have discussed with his and daughter. Patient's rib pains borderline and may need re-intubation. Will add EzPAP to minimize atelectasis. Continue diuretics. Patient's is okay with re-intubation if needed to give him 1 more opportunity although she does not believe patient would want tracheostomy or PEG tube placement for long-term mechanical ventilation. (2) Parkinson disease: Qualifiers: Dyskinesia presence: unspecified whether dyskinesia Fluctuating manifestations: unspecified whether manifestations fluctuate Qualified Code(s): G20.A1 - Parkinson's disease without dyskinesia, without mention of fluctuations Code(s): G20 - Parkinson's disease Status: Acute Assessment and Plan: Continue levodopa carbidopa by enteral tube I discussed with Neurology and will increase the dose to 2.5 pills q.6 hours today and up to 3 pills q.6 hours tomorrow discontinue Mirapex amantadine is on hold since is cannot be given through the tube (3) Congestive heart failure: Code(s): I50.9 - Heart failure, unspecified Status: Acute Assessment and Plan: Patient has edema on exam and echo shows diastolic dysfunction. I checked a BNP and was elevated Continuet Lasix IV (4) UTI (urinary tract infection): Code(s): N39.0 - Urinary tract infection, site not specified Status: Acute Assessment and Plan: negative urine culture till now antibiotics as below (5) Agitation: Code(s): R45.1 - Restlessness and agitation Status: Acute Assessment and Plan: appears calm at this time. Now off of sedation (6) Electrolyte abnormality: Code(s): E87.8 - Other disorders of electrolyte and fluid balance, not elsewhere classified Status: Acute Assessment and Plan: potassium in normal range. Monitor. (7) Fever: Code(s): R50.9 - Fever, unspecified Status: Acute Assessment and Plan: Patient was having fever with increased respiratory secretions I suspect patient have pneumonia Repeat blood cultures sent on 08/13 sputum culture sent Change to cefepime and vancomycin check procalcitonin level (8) Dysphagia: Code(s): R13.10 - Dysphagia, unspecified Status: Acute Assessment and Plan: patient extubated but not strong enough or even bedside swallow evaluation at that time. Discussed with speech therapy. Will re-evaluate tomorrow. Continue tube feeding through NG tube. I discussed this again with patient's that patient may need PEG tube if patient is not improve enough to pass swallow study. Plan DVT prophylaxis -Lovenox Stress ulcer prophylaxis -PPI Nutrition -continue Tube Feeds Code Status - Full Code I I have had multiple discussions with patient's and daughter at bedside yesterday and today and I have updated the patient's status. I have answered all their questions. I explained to them the patient continues to have b orderline respiratory status and is quite weak. He may need re-intubation although we will try our best to avoid it by using NIPPV, frequent suctioning, ezpap and aggressive nursing care. Patient's at this time wants patient reintubated if needed to give him 1 more opportunity but believes the patient would not want trach and PEG for long-term mechanical ventilation. Total Critical Care Time - 31 minutes Due to a high probability of clinically significant, life threatening deterioration, the patient required my highest level of preparedness to intervene emergently and I personally spent this critical care time directly and personally managing the patient. This critical care time included obtaining a history; examining the patient; pulse oximetry; ordering and review of studies; arranging urgent treatment with development of a management plan; evaluation of patient's response to treatment; frequent reassessment; and discussions with other providers. It was exclusive of separately billable procedures and treating other patients and teaching time. Please see Assessment and Plan section and the rest of the note for further information on patient assessment and treatment Subjective Date/time seen: 08/14/25 patient was extubated yesterday after a successful weaning trial. Patient remains borderline when it comes respiratory status. He is quite weak and requires frequent suctioning. His speech is slurred. He mumbles on asking question but does not answer questions. He does follow commands with his hands and feet but is weak. He wore BiPAP overnight. He is now back on cannula this morning and saturating adequately. His respiratory rate is adequate at this time. Blood pressure is elevated. He is on tube feeds. Low-grade fever overnight Review of Systems Review of Systems: ROS unobtainable: Yes unobtainable due to endotracheal tube, unobtainable due to medical condition and unobtainable due to mental status Exam Narrative: General: Pt is alert awake and in no distress Lungs/Chest: Trachea central Coarse BS B/L, No crackles or wheezing. breath sounds decreased at bases Cardiac: RRR. Normal S1 S2. No murmurs Circulation: Pedal pulses are intact and symmetrical. Abdomen: Decreased bowel sounds. Obese. Soft. NT. ND. NG tube in place Extremities: No clubbing, cyanosis, mild pedal edema present : Brower in place Neurologic: he is awake, garbled stuttered speech, decent cough reflex. Moves all 4 extremities To commands but very weak unable to lift his hands fully from bed PERRL. Objective Data Vital Signs Vital Signs: Vital Signs - 24 hr 08/13/25 12:00 08/13/25 12:00 08/13/25 12:00 Temperature 37.2 C Pulse Rate 78 Respiratory Rate 21 H Blood Pressure 167/61 H Pulse Oximetry 96 96 Oxygen Delivery Mechanical Ventilation Oxygen Flow Rate Fraction of Inspired Oxygen 40 40 08/13/25 12:00 08/13/25 12:05 08/13/25 13:00 Temperature 37.7 C H Pulse Rate 90 88 99 Respiratory Rate 28 H 30 H Blood Pressure 170/52 H Pulse Oximetry 95 Oxygen Delivery Oxygen Flow Rate Fraction of Inspired Oxygen 08/13/25 13:05 08/13/25 13:05 08/13/25 13:05 Temperature Pulse Rate 93 Respiratory Rate 21 H Blood Pressure Pulse Oximetry 94 92 Oxygen Delivery Mechanical Ventilation High Flow Nasal Cannula High Flow Nasal Cannula Oxygen Flow Rate 10 5 Fraction of Inspired Oxygen 08/13/25 14:00 08/13/25 14:00 08/13/25 14:00 Temperature 37.8 C H Pulse Rate 96 96 96 Respiratory Rate 24 H 24 H Blood Pressure 156/53 H Pulse Oximetry 95 Oxygen Delivery Oxygen Flow Rate Fraction of Inspired Oxygen 08/13/25 15:00 08/13/25 15:30 08/13/25 16:00 Temperature 37.8 C H 38.0 C H Pulse Rate 96 95 106 H Respiratory Rate 31 H 24 H 26 H Blood Pressure 144/53 H 169/59 H Pulse Oximetry 97 97 96 Oxygen Delivery High Flow Nasal Cannula Oxygen Flow Rate 10 Fraction of Inspired Oxygen 08/13/25 16:00 08/13/25 16:00 08/13/25 16:47 Temperature 38.0 C H Pulse Rate 104 H Respiratory Rate Blood Pressure Pulse Oximetry 93 Oxygen Delivery High Flow Nasal Cannula Oxygen Flow Rate 7 Fraction of Inspired Oxygen 08/13/25 17:00 08/13/25 17:29 08/13/25 17:47 Temperature 37.8 C H 37.7 C H Pulse Rate 99 99 Respiratory Rate 24 H 26 H Blood Pressure 148/54 H Pulse Oximetry 93 94 Oxygen Delivery High Flow Nasal Cannula Oxygen Flow Rate 7 Fraction of Inspired Oxygen 08/13/25 18:00 08/13/25 18:00 08/13/25 19:00 Temperature 37.6 C 37.1 C Pulse Rate 90 92 96 Respiratory Rate 27 H 24 H Blood Pressure 121/85 172/66 H Pulse Oximetry 93 96 Oxygen Delivery Oxygen Flow Rate Fraction of Inspired Oxygen 08/13/25 20:00 08/13/25 20:00 08/13/25 20:00 Temperature 37.1 C Pulse Rate 94 96 Respiratory Rate 25 H Blood Pressure 171/55 H Pulse Oximetry 94 94 Oxygen Delivery High Flow Nasal Cannula Oxygen Flow Rate 7 Fraction of Inspired Oxygen 08/13/25 20:30 08/13/25 21:00 08/13/25 22:00 Temperature 37.0 C Pulse Rate 103 H 100 104 H Respiratory Rate 24 H 18 Blood Pressure 149/46 H 163/63 H Pulse Oximetry 92 91 Oxygen Delivery Oxygen Flow Rate Fraction of Inspired Oxygen 08/13/25 22:00 08/13/25 22:45 08/13/25 23:00 Temperature 37.3 C 37.4 C 37.5 C Pulse Rate 102 H 102 H 99 Respiratory Rate 42 H 29 H 34 H Blood Pressure 150/54 H 163/59 H Pulse Oximetry 91 94 95 Oxygen Delivery Oxygen Flow Rate Fraction of Inspired Oxygen 08/13/25 23:16 08/14/25 00:00 08/14/25 00:00 Temperature 37.4 C Pulse Rate 94 91 91 Respiratory Rate 29 H 29 H Blood Pressure 160/55 H Pulse Oximetry 100 95 Oxygen Delivery BiPAP Oxygen Flow Rate Fraction of Inspired Oxygen 08/14/25 00:00 08/14/25 01:05 08/14/25 02:00 Temperature 37.5 C Pulse Rate 102 H 103 H Respiratory Rate 37 H Blood Pressure 167/59 H Pulse Oximetry 95 95 Oxygen Delivery BiPAP Oxygen Flow Rate Fraction of Inspired Oxygen 50 08/14/25 02:00 08/14/25 02:20 08/14/25 03:00 Temperature 37.6 C 37.7 C H Pulse Rate 104 H 104 H 78 Respiratory Rate 31 H 12 Blood Pressure 178/64 H 152/51 H Pulse Oximetry 95 97 Oxygen Delivery Oxygen Flow Rate Fraction of Inspired Oxygen 08/14/25 03:30 08/14/25 04:00 08/14/25 04:00 Temperature 37.7 C H Pulse Rate 78 81 Respiratory Rate 21 H 26 H Blood Pressure 147/61 H 160/56 H Pulse Oximetry 97 98 95 Oxygen Delivery BiPAP Oxygen Flow Rate Fraction of Inspired Oxygen 50 08/14/25 04:00 08/14/25 04:58 08/14/25 05:01 Temperature 37.8 C H Pulse Rate 82 104 H 90 Respiratory Rate 34 H Blood Pressure 168/58 H Pulse Oximetry 97 Oxygen Delivery Oxygen Flow Rate Fraction of Inspired Oxygen 08/14/25 05:20 08/14/25 06:00 08/14/25 06:00 Temperature 37.9 C H Pulse Rate 91 95 95 Respiratory Rate 26 H 32 H Blood Pressure 172/67 H Pulse Oximetry 97 96 Oxygen Delivery BiPAP Oxygen Flow Rate Fraction of Inspired Oxygen 08/14/25 07:00 08/14/25 07:33 08/14/25 07:45 Temperature 38.1 C H Pulse Rate 92 86 86 Respiratory Rate 23 H 27 H 24 H Blood Pressure 159/63 H Pulse Oximetry 98 98 95 Oxygen Delivery BiPAP High Flow Nasal Cannula Oxygen Flow Rate 7 Fraction of Inspired Oxygen 08/14/25 08:00 08/14/25 08:00 08/14/25 08:00 Temperature 38.2 C H Pulse Rate 84 81 Respiratory Rate 25 H Blood Pressure 152/53 H Pulse Oximetry 96 97 Oxygen Delivery High Flow Nasal Cannula Oxygen Flow Rate 7 Fraction of Inspired Oxygen 08/14/25 08:25 08/14/25 09:00 08/14/25 10:00 Temperature 38.1 C H 38.1 C H Pulse Rate 81 80 81 Respiratory Rate 26 H 31 H Blood Pressure 144/57 H 149/52 H Pulse Oximetry 97 96 Oxygen Delivery Oxygen Flow Rate Fraction of Inspired Oxygen 08/14/25 10:00 08/14/25 10:26 Temperature Pulse Rate 82 81 Respiratory Rate 16 Blood Pressure Pulse Oximetry 96 Oxygen Delivery High Flow Nasal Cannula Oxygen Flow Rate 6 Fraction of Inspired Oxygen Intake/Output Intake/Output: Intake & Output 08/11/25 08/12/25 08/13/25 08/14/25 23:59 23:59 23:59 23:59 Intake Total 3243.7 2337.0 2447.5 661 Output Total 5025 1925 2525 1200 Balance -1781.3 412.0 -77.5 -539 Meds/Results Medications: Active Medications Generic Name Dose Route Start Last Admin Trade Name Freq PRN Reason Stop Dose Admin Acetaminophen 650 mg 08/09/25 22:21 08/13/25 16:47 Acetaminophen Elixir 325 Mg/10.15 Ml Udc FEED TUBE 650 mg Q4H PRN Administration Fever Albuterol 2 puff 08/08/25 09:01 Albuterol Sulfate (*Sp) Aerosol 1 Puff INHALATION Q4HRT PRN Shortness Of Breath Or Wheezing Amantadine HCl 100 mg 08/10/25 09:00 08/10/25 10:37 Amantadine Hcl 100 Mg Capsule FEED TUBE Not Given On Hold: 08/10/25 12:13 TID DALE Amlodipine Besylate 10 mg 08/14/25 09:00 08/14/25 08:25 Amlodipine Besylate 10 Mg Tablet FEED TUBE 10 mg DAILY DALE Administration Bisacodyl 10 mg 08/11/25 07:45 08/13/25 08:00 Bisacodyl 10 Mg Suppository RECTAL 10 mg QAM PRN Administration Constipation Carbidopa/Levodopa 2 tablet 08/14/25 21:00 Carbidopa/Levodopa 25/100 Mg Tablet FEED TUBE DAILY@00,,, DALE Carbidopa/Levodopa 1 tablet 08/14/25 21:00 Carbidopa/Levodopa 12.5/50 Mg Tablet FEED TUBE DAILY@00,,, DALE Dextrose 12.5 gm 08/09/25 18:34 Dextrose 50% 25 Gm/50 Ml Syringe IV PUSH PRN PRN Hypoglycemia Protocol Enoxaparin Sodium 40 mg 08/10/25 09:00 08/14/25 08:26 Enoxaparin 40 Mg/0.4 Ml Syringe SUB-Q 40 mg DAILY DALE Administration Fluticasone Propionate 2 spray 08/08/25 09:01 Fluticasone Propionate 0.05% Na Spr 16 Gm Btl (*Bkc) NASAL PRN PRN allergies Furosemide 80 mg 08/13/25 09:00 08/14/25 08:25 Furosemide Inj 100 Mg/10 Ml Vial IV PUSH 08/14/25 17:01 80 mg BID DALE Administration Glucagon 1 mg 08/09/25 18:34 Glucagon For Inj 1 Mg Vial IM PRN PRN Hypoglycemia Protocol Glucose 15 gm 08/09/25 18:34 Glucose Oral Gel 15 Gm Of Glucse In 37.5 Gm Tube PO PRN PRN Hypoglycemia Protocol Hydralazine HCl 20 mg 08/12/25 12:27 08/14/25 04:10 Hydralazine Hcl 20 Mg/Ml Vial IV PUSH 20 mg Q4H PRN Administration SBP more than 160 Dextrose 1,000 mls @ 100 mls/hr 08/09/25 18:34 Dextrose 5% 1,000 Ml IVPB PRN PRN Hypoglycemia Protocol Vancomycin HCl 1,500 mg in 500 mls @ 250 mls/hr 08/14/25 04:00 08/14/25 03:10 Vancomycin 1,500 Mg/Ns 500 Ml IVPB 250 mls/hr Q18H DALE Administration Cefepime HCl 2 gm/ Sodium 50 mls @ 100 mls/hr 08/14/25 21:00 Chloride IVPB Q12H DALE Insulin Aspart 2 - 5 units 08/10/25 12:00 08/14/25 06:00 Insulin Aspart (*Bkc) 100 Units/Ml SUB-Q Not Given Q6HR [facility] Protocol Labetalol HCl 20 mg 08/14/25 07:45 Labetalol Hcl Inj 100 Mg/20 Ml Vial IV PUSH Q4H PRN SBP > 160 and HR> 60 -1st choice Metoprolol Tartrate 25 mg 08/14/25 09:00 08/14/25 08:25 Metoprolol Tartrate 25 Mg Tablet FEED TUBE 25 mg Q12HR DALE Administration Morphine Sulfate 4 mg 08/12/25 14:33 08/12/25 14:46 Morphine Sulfate (*Crx) 4 Mg/Ml Inj IV PUSH 4 mg Q1H PRN Administration Pain while on vent Multi-Ingred Cream/Lotion/Oil/Oint 1 applic 08/09/25 21:00 08/14/25 08:41 Mineral Oil/White Petrolatum Ointment EACH EYE 1 applic Q12HR DALE Administration Pantoprazole Sodium 40 mg 08/10/25 09:00 08/14/25 08:25 Pantoprazole Sodium Iv 40 Mg Vial IV PUSH 40 mg QAM DALE Administration Polyethylene Glycol 17 gm 08/10/25 09:00 08/14/25 08:26 Polyethylene Glycol 3350 17 Gm Powd.Pack FEED TUBE 17 gm QAM DALE Administration Pramipexole Dihydrochloride 1 mg 08/10/25 09:00 08/14/25 08:24 Pramipexole 1 Mg Tablet FEED TUBE 1 mg On Hold: 08/14/25 10:56 TID DALE Administration Senna/Docusate Sodium 2 tab 08/10/25 09:00 08/14/25 08:24 Senna/Docusate Sodium Tablet FEED TUBE 2 tab BID DALE Administration Trazodone HCl 50 mg 08/14/25 21:00 Trazodone Hcl 50 Mg Tablet FEED TUBE QHS [facility] Radiology Results: ITS Impressions Knee X-Ray 08/07/25 18:51 IMPRESSION: 1. No acute bony lesions. 2 osteopenic bones. Severe arthritis predominantly of patellofemoral joint. Please correlate with DEXA densitometry. 3 if symptoms are localized and persistent, MRI is indicated. Venous Doppler Study 08/07/25 20:49 IMPRESSION: 1. No deep venous thrombosis in the right lower extremity veins.. Ankle X-Ray 08/09/25 14:44 Impression: No acute fracture or malalignment. Wrist X-Ray 08/09/25 14:44 Impression: No acute fracture or malalignment. Head CT 08/09/25 20:23 IMPRESSION: 1. No acute findings in this limited noncontrast CT head. Chest/Abdomen/Pelvis CT 08/09/25 20:29 IMPRESSION: 1. Limited noncontrast examination is not optimal to evaluate solid viscera, vascular structures and neoplasms. 2. No acute pulmonary findings. Minimal platelike atelectasis of lung bases. 3. Tip of the endotracheal tube is low in position, just above the allie. Please reposition this ET tube more proximally by approximately 2.5 to 3 cm. 4. No acute findings in the abdomen and pelvis. Other findings as mentioned above. Abdomen X-Ray 08/13/25 16:09 Impression: 1. No acute abnormality. Chest X-Ray 08/14/25 07:12 IMPRESSION: 1. No significant change. 2. Persistent left basilar atelectasis and/or airspace disease. Labs Labs: Laboratory Results - last 24 hr 08/13/25 08/13/25 08/13/25 11:52 12:17 17:51 WBC RBC Hgb Hct MCV MCH MCHC RDW Plt Count MPV Puncture Site Right radial ABG pH 7.493 H ABG pCO2 41.6 ABG pO2 70.2 L ABG PO2/FiO2 Ratio 1.75 ABG HCO3 31.2 H ABG O2 Saturation 95.3 ABG O2 Content 18.6 ABG Base Excess 7.2 A-a Gradient 167.2 Oxyhemoglobin 94.3 Carboxyhemoglobin Methemoglobin Reduced Hemoglobin Total Hemoglobin 14.0 O2 Delivery Device Ventilator O2 Liters/Min Not Reportable Minute Volume Not Reportable Vent Rate Not Reportable Vent Mode Spontaneous FiO2 40 Expiratory Pressure Tidal Volume Not Reportable PEEP 5 Inspiratory Pressure Peak Inspir Pressure Not Reportable Pressure Support 5 Sodium Potassium Chloride Carbon Dioxide Anion Gap BUN Creatinine Estim Creat Clear Calc Estimated GFR Glucose POC Capillary Glucose 127 H 181 H Calcium Magnesium Total Bilirubin AST ALT Alkaline Phosphatase Total Protein Albumin 08/13/25 08/14/25 08/14/25 23:44 04:18 05:24 WBC 13.7 H RBC 4.64 Hgb 13.2 L Hct 43.7 MCV 94.2 MCH 28.4 MCHC 30.2 L RDW 13.2 Plt Count 285 MPV 11.4 H Puncture Site Left radial ABG pH 7.528 H* ABG pCO2 37.1 ABG pO2 83.1 ABG PO2/FiO2 Ratio 1.66 ABG HCO3 30.2 H ABG O2 Saturation 97.2 ABG O2 Content 19.4 ABG Base Excess 7.2 A-a Gradient 231.7 Oxyhemoglobin 96.4 Carboxyhemoglobin 0.8 Methemoglobin 0.2 Reduced Hemoglobin 2.6 Total Hemoglobin 14.3 O2 Delivery Device Non-invasive vent O2 Liters/Min Not Reportable Minute Volume Vent Rate 12 Vent Mode FiO2 50 Expiratory Pressure 8 Tidal Volume PEEP Inspiratory Pressure 15 Peak Inspir Pressure Pressure Support Sodium 136 L Potassium 3.9 Chloride 99 Carbon Dioxide 32 H Anion Gap 5 BUN 49 H Creatinine 0.86 Estim Creat Clear Calc 83 Estimated GFR > 60 Glucose 179 H POC Capillary Glucose 155 H Calcium 8.8 Magnesium 2.9 H Total Bilirubin 0.8 AST 52 ALT 8 Alkaline Phosphatase 111 Total Protein 6.9 Albumin 3.7 Quality VTE Prophylaxis VTE prophylaxis: pharmacologic ordered
[2025-08-14] MEDS: ACETAMINOPHEN ELIXIR 325 MG/10.15 ML UDC 650 MG FEED TUBE (12:07)
[2025-08-14 12:43] LABS: Procalcitonin 0.8 ng/mL
--- NOTE | 2025-08-14 14:56 | PCSTNOTE ---
08/14 Re-Checked for BSE. No change at this time. Attempt 08/15
--- NOTE | 2025-08-14 15:17 | PCSTNOTE ---
Please refer to the Bedside Swallow Evaluation in the EMR. Please note, silent aspiration cannot be ruled out at bedside. Pt is a 75 year old male who was admitted to the hospital for shortness of breath and pneumonia. Pt with a remarkable history of Parkinson's Disease. RN agreeable to evaluation and states that he has was recently extubated after a 4 day intubation. She states that he has been oriented x1 (person) since he was extubated. Upon INCOME TAX PREPARER arrival, his and daughter were present at bedside and aided in reporting the pt's history. Pt's stated no previous dysphagia; however, she states that she has noted occasional coughing during meals (reports 1-2x per meal). The pt was notably fatigued and lethargic. The INCOME TAX PREPARER and his daughter attempted to wake him; however, he did not fully wake and requested that the INCOME TAX PREPARER leave the room. The INCOME TAX PREPARER attempted to wake him using a loud voice, tapping him gently on the shoulder, cleaning off his face with a damp cloth, and touching a spoon to his lips with cold water. Despite these efforts, the pt did not participate in the evaluation. Given this information, it is recommended that the pt remain NPO and receive all nutrition and medications through an alternative source (i.e. his feeding tube). During this evaluation, the pt's and daughter received skilled education regarding the role of the INCOME TAX PREPARER in the acute setting. Education also included s/s of aspiration, potential impact on swallowing from prolonged intubation, and level of alertness required for safe PO intake. Pt's and daughter asked informed questions and were agreeable to ST's plan for a re-evaluation at the bedside when pt is more alert and can participate. Recommendations: 1. NPO pending ST re-evaluation at the bedside when pt presents with increased alertness and can participate with trials of PO
--- NOTE | 2025-08-14 16:17 | P.PNIM_ITS ---
Assessment and Plan Assessment and Plan (1) Acute respiratory failure: Code(s): J96.00 - Acute respiratory failure, unspecified whether with hypoxia or hypercapnia Status: Acute Assessment and Plan: Acute respiratory failure secondary to altered mental status and pulmonary edema Patient now intubated and sedated Vent management per ICU Extubated 08/13/2025 to high-flow nasal cannula and BiPAP at night Continue frequent suctioning (2) Parkinson disease: Qualifiers: Dyskinesia presence: unspecified whether dyskinesia Fluctuating manifestations: unspecified whether manifestations fluctuate Qualified Code(s): G20.A1 - Parkinson's disease without dyskinesia, without mention of fluctuations Code(s): G20 - Parkinson's disease Status: Acute Assessment and Plan: Continue levodopa carbidopa by enteral tube Continue Mirapex amantadine is on hold since is cannot be given through the tube (3) Congestive heart failure: Code(s): I50.9 - Heart failure, unspecified Status: Acute Assessment and Plan: Patient has edema on exam and echo shows diastolic dysfunction. Elevated BNP Continuet Lasix IV (4) UTI (urinary tract infection): Code(s): N39.0 - Urinary tract infection, site not specified Status: Acute Assessment and Plan: Check urine culture and continue Rocephin (5) Agitation: Code(s): R45.1 - Restlessness and agitation Status: Acute Assessment and Plan: Now off sedation (6) Electrolyte abnormality: Code(s): E87.8 - Other disorders of electrolyte and fluid balance, not elsewhere classified Status: Acute Assessment and Plan: Replace low K Plan Fever: Repeat blood culture sent 08/13 on vancomycin and cefepime. Dysphagia: Speech to evaluate DVT prophylaxis -Lovenox Stress ulcer prophylaxis -PPI Nutrition -continue Tube Feeds Code Status - Full Code Subjective Date/time seen: 08/14/25 16:17 Interval history: Patient extubated yesterday. Currently on nasal cannula. Patient somnolent. Family at bedside. Use BiPAP last night. Review of Systems Review of Systems: ROS unobtainable: Yes unobtainable due to medical condition Exam Narrative: General: Pt is somnolent on high-flow nasal cannula not in acute distress Lungs/Chest: Trachea central Coarse BS B/L, No crackles or wheezing. Cardiac: RRR. Normal S1 S2. No murmurs Circulation: Pedal pulses are intact and symmetrical. Abdomen: Decreased bowel sounds. Obese. Soft. NT. ND. Extremities: No clubbing, cyanosis, mild pedal edema present : Brower in place Neurologic: Somnolent, follow some commands Objective Data Vital Signs Vital Signs: Vital Signs - 24 hr 08/13/25 16:47 08/13/25 17:00 08/13/25 17:29 Temperature 100.4 F H 100.1 F H Pulse Rate 99 99 Respiratory Rate 24 H 26 H Blood Pressure 148/54 H Pulse Oximetry 93 94 Oxygen Delivery High Flow Nasal Cannula Oxygen Flow Rate 7 Fraction of Inspired Oxygen 08/13/25 17:47 08/13/25 18:00 08/13/25 18:00 Temperature 99.8 F H 99.6 F Pulse Rate 90 92 Respiratory Rate 27 H Blood Pressure 121/85 Pulse Oximetry 93 Oxygen Delivery Oxygen Flow Rate Fraction of Inspired Oxygen 08/13/25 19:00 08/13/25 20:00 08/13/25 20:00 Temperature 98.7 F 98.7 F Pulse Rate 96 94 Respiratory Rate 24 H 25 H Blood Pressure 172/66 H 171/55 H Pulse Oximetry 96 94 94 Oxygen Delivery High Flow Nasal Cannula Oxygen Flow Rate 7 Fraction of Inspired Oxygen 08/13/25 20:00 08/13/25 20:30 08/13/25 21:00 Temperature 98.6 F Pulse Rate 96 103 H 100 Respiratory Rate 24 H 18 Blood Pressure 149/46 H 163/63 H Pulse Oximetry 92 91 Oxygen Delivery Oxygen Flow Rate Fraction of Inspired Oxygen 08/13/25 22:00 08/13/25 22:00 08/13/25 22:45 Temperature 99.2 F 99.4 F Pulse Rate 104 H 102 H 102 H Respiratory Rate 42 H 29 H Blood Pressure 150/54 H Pulse Oximetry 91 94 Oxygen Delivery Oxygen Flow Rate Fraction of Inspired Oxygen 08/13/25 23:00 08/13/25 23:16 08/14/25 00:00 Temperature 99.5 F 99.4 F Pulse Rate 99 94 91 Respiratory Rate 34 H 29 H 29 H Blood Pressure 163/59 H 160/55 H Pulse Oximetry 95 100 95 Oxygen Delivery BiPAP Oxygen Flow Rate Fraction of Inspired Oxygen 08/14/25 00:00 08/14/25 00:00 08/14/25 01:05 Temperature 99.5 F Pulse Rate 91 102 H Respiratory Rate 37 H Blood Pressure 167/59 H Pulse Oximetry 95 95 Oxygen Delivery BiPAP Oxygen Flow Rate Fraction of Inspired Oxygen 50 08/14/25 02:00 08/14/25 02:00 08/14/25 02:20 Temperature 99.6 F Pulse Rate 103 H 104 H 104 H Respiratory Rate 31 H Blood Pressure 178/64 H Pulse Oximetry 95 Oxygen Delivery Oxygen Flow Rate Fraction of Inspired Oxygen 08/14/25 03:00 08/14/25 03:30 08/14/25 04:00 Temperature 99.9 F H 99.9 F H Pulse Rate 78 78 81 Respiratory Rate 12 21 H 26 H Blood Pressure 152/51 H 147/61 H 160/56 H Pulse Oximetry 97 97 98 Oxygen Delivery Oxygen Flow Rate Fraction of Inspired Oxygen 08/14/25 04:00 08/14/25 04:00 08/14/25 04:58 Temperature Pulse Rate 82 104 H Respiratory Rate Blood Pressure Pulse Oximetry 95 Oxygen Delivery BiPAP Oxygen Flow Rate Fraction of Inspired Oxygen 50 08/14/25 05:01 08/14/25 05:20 08/14/25 06:00 Temperature 100.1 F H 100.3 F H Pulse Rate 90 91 95 Respiratory Rate 34 H 26 H 32 H Blood Pressure 168/58 H 172/67 H Pulse Oximetry 97 97 96 Oxygen Delivery BiPAP Oxygen Flow Rate Fraction of Inspired Oxygen 08/14/25 06:00 08/14/25 07:00 08/14/25 07:33 Temperature 100.5 F H Pulse Rate 95 92 86 Respiratory Rate 23 H 27 H Blood Pressure 159/63 H Pulse Oximetry 98 98 Oxygen Delivery BiPAP Oxygen Flow Rate Fraction of Inspired Oxygen 08/14/25 07:45 08/14/25 08:00 08/14/25 08:00 Temperature 100.7 F H Pulse Rate 86 84 Respiratory Rate 24 H 25 H Blood Pressure 152/53 H Pulse Oximetry 95 96 97 Oxygen Delivery High Flow Nasal Cannula High Flow Nasal Cannula Oxygen Flow Rate 7 7 Fraction of Inspired Oxygen 08/14/25 08:00 08/14/25 08:25 08/14/25 09:00 Temperature 100.5 F H Pulse Rate 81 81 80 Respiratory Rate 26 H Blood Pressure 144/57 H Pulse Oximetry 97 Oxygen Delivery Oxygen Flow Rate Fraction of Inspired Oxygen 08/14/25 10:00 08/14/25 10:00 08/14/25 10:26 Temperature 100.6 F H Pulse Rate 81 82 81 Respiratory Rate 31 H 16 Blood Pressure 149/52 H Pulse Oximetry 96 96 Oxygen Delivery High Flow Nasal Cannula Oxygen Flow Rate 6 Fraction of Inspired Oxygen 08/14/25 11:00 08/14/25 12:00 08/14/25 12:07 Temperature 100.5 F H 100.3 F H 100.6 F H Pulse Rate 89 78 Respiratory Rate 37 H 22 H Blood Pressure 153/54 H 116/42 L Pulse Oximetry 96 96 Oxygen Delivery Oxygen Flow Rate Fraction of Inspired Oxygen 08/14/25 12:23 08/14/25 12:26 08/14/25 13:00 Temperature 100.1 F H Pulse Rate 78 81 Respiratory Rate 26 H Blood Pressure 128/50 L Pulse Oximetry 96 95 Oxygen Delivery Oxygen Flow Rate 6 Fraction of Inspired Oxygen 08/14/25 14:00 08/14/25 14:00 08/14/25 14:03 Temperature 100.0 F H Pulse Rate 86 82 84 Respiratory Rate 33 H 22 H Blood Pressure 122/44 L Pulse Oximetry 94 94 Oxygen Delivery High Flow Nasal Cannula Oxygen Flow Rate 5 Fraction of Inspired Oxygen 08/14/25 15:01 08/14/25 16:00 08/14/25 16:08 Temperature 100.1 F H 99.9 F H Pulse Rate 81 81 80 Respiratory Rate 21 H 20 Blood Pressure 127/45 L 123/40 L Pulse Oximetry 95 96 Oxygen Delivery Oxygen Flow Rate Fraction of Inspired Oxygen Intake/Output Intake/Output: Intake & Output 08/11/25 08/12/25 08/13/25 08/14/25 23:59 23:59 23:59 23:59 Intake Total 3243.7 2337.0 2447.5 661 Output Total 5025 1925 2525 1200 Balance -1781.3 412.0 -77.5 -539 Meds/Results Medications: Active Medications Generic Name Dose Route Start Last Admin Trade Name Freq PRN Reason Stop Dose Admin Acetaminophen 650 mg 08/09/25 22:21 08/14/25 12:07 Acetaminophen Elixir 325 Mg/10.15 Ml Udc FEED TUBE 650 mg Q4H PRN Administration Fever Albuterol 2 puff 08/08/25 09:01 Albuterol Sulfate (*Sp) Aerosol 1 Puff INHALATION Q4HRT PRN Shortness Of Breath Or Wheezing Amantadine HCl 100 mg 08/10/25 09:00 08/10/25 10:37 Amantadine Hcl 100 Mg Capsule FEED TUBE Not Given On Hold: 08/10/25 12:13 TID DALE Amlodipine Besylate 10 mg 08/14/25 09:00 08/14/25 08:25 Amlodipine Besylate 10 Mg Tablet FEED TUBE 10 mg DAILY DALE Administration Bisacodyl 10 mg 08/11/25 07:45 08/13/25 08:00 Bisacodyl 10 Mg Suppository RECTAL 10 mg QAM PRN Administration Constipation Carbidopa/Levodopa 2 tablet 08/14/25 21:00 Carbidopa/Levodopa 25/100 Mg Tablet FEED TUBE DAILY@00,03,06,21 DALE Carbidopa/Levodopa 1 tablet 08/14/25 21:00 Carbidopa/Levodopa 12.5/50 Mg Tablet FEED TUBE DAILY@00,03,06,21 DALE Dextrose 12.5 gm 08/09/25 18:34 Dextrose 50% 25 Gm/50 Ml Syringe IV PUSH PRN PRN Hypoglycemia Protocol Enoxaparin Sodium 40 mg 08/10/25 09:00 08/14/25 08:26 Enoxaparin 40 Mg/0.4 Ml Syringe SUB-Q 40 mg DAILY DALE Administration Fluticasone Propionate 2 spray 08/08/25 09:01 Fluticasone Propionate 0.05% Na Spr 16 Gm Btl (*Bkc) NASAL PRN PRN allergies Furosemide 80 mg 08/13/25 09:00 08/14/25 08:25 Furosemide Inj 100 Mg/10 Ml Vial IV PUSH 08/14/25 17:01 80 mg BID DALE Administration Glucagon 1 mg 08/09/25 18:34 Glucagon For Inj 1 Mg Vial IM PRN PRN Hypoglycemia Protocol Glucose 15 gm 08/09/25 18:34 Glucose Oral Gel 15 Gm Of Glucse In 37.5 Gm Tube PO PRN PRN Hypoglycemia Protocol Hydralazine HCl 20 mg 08/12/25 12:27 08/14/25 04:10 Hydralazine Hcl 20 Mg/Ml Vial IV PUSH 20 mg Q4H PRN Administration SBP more than 160 Dextrose 1,000 mls @ 100 mls/hr 08/09/25 18:34 Dextrose 5% 1,000 Ml IVPB PRN PRN Hypoglycemia Protocol Vancomycin HCl 1,500 mg in 500 mls @ 250 mls/hr 08/14/25 04:00 08/14/25 03:10 Vancomycin 1,500 Mg/Ns 500 Ml IVPB 250 mls/hr Q18H DALE Administration Cefepime HCl 2 gm/ Sodium 50 mls @ 100 mls/hr 08/14/25 21:00 Chloride IVPB Q12H DALE Insulin Aspart 2 - 5 units 08/10/25 12:00 08/14/25 12:08 Insulin Aspart (*Bkc) 100 Units/Ml SUB-Q Not Given Q6HR [facility] Protocol Labetalol HCl 20 mg 08/14/25 07:45 Labetalol Hcl Inj 100 Mg/20 Ml Vial IV PUSH Q4H PRN SBP > 160 and HR> 60 -1st choice Metoprolol Tartrate 25 mg 08/14/25 09:00 08/14/25 08:25 Metoprolol Tartrate 25 Mg Tablet FEED TUBE 25 mg Q12HR DALE Administration Morphine Sulfate 4 mg 08/12/25 14:33 08/12/25 14:46 Morphine Sulfate (*Crx) 4 Mg/Ml Inj IV PUSH 4 mg Q1H PRN Administration Pain while on vent Multi-Ingred Cream/Lotion/Oil/Oint 1 applic 08/09/25 21:00 08/14/25 08:41 Mineral Oil/White Petrolatum Ointment EACH EYE 1 applic Q12HR DALE Administration Pantoprazole Sodium 40 mg 08/10/25 09:00 08/14/25 08:25 Pantoprazole Sodium Iv 40 Mg Vial IV PUSH 40 mg QAM DALE Administration Polyethylene Glycol 17 gm 08/10/25 09:00 08/14/25 08:26 Polyethylene Glycol 3350 17 Gm Powd.Pack FEED TUBE 17 gm QAM DALE Administration Pramipexole Dihydrochloride 1 mg 08/10/25 09:00 08/14/25 08:24 Pramipexole 1 Mg Tablet FEED TUBE 1 mg On Hold: 08/14/25 10:56 TID [facility] Administration Senna/Docusate Sodium 2 tab 08/10/25 09:00 08/14/25 08:24 Senna/Docusate Sodium Tablet FEED TUBE 2 tab BID DALE Administration Trazodone HCl 50 mg 08/14/25 21:00 Trazodone Hcl 50 Mg Tablet FEED TUBE QHS [facility] Radiology Results: ITS Impressions Knee X-Ray 08/07/25 18:51 IMPRESSION: 1. No acute bony lesions. 2 osteopenic bones. Severe arthritis predominantly of patellofemoral joint. Please correlate with DEXA densitometry. 3 if symptoms are localized and persistent, MRI is indicated. Venous Doppler Study 08/07/25 20:49 IMPRESSION: 1. No deep venous thrombosis in the right lower extremity veins.. Ankle X-Ray 08/09/25 14:44 Impression: No acute fracture or malalignment. Wrist X-Ray 08/09/25 14:44 Impression: No acute fracture or malalignment. Head CT 08/09/25 20:23 IMPRESSION: 1. No acute findings in this limited noncontrast CT head. Chest/Abdomen/Pelvis CT 08/09/25 20:29 IMPRESSION: 1. Limited noncontrast examination is not optimal to evaluate solid viscera, vascular structures and neoplasms. 2. No acute pulmonary findings. Minimal platelike atelectasis of lung bases. 3. Tip of the endotracheal tube is low in position, just above the allie. Please reposition this ET tube more proximally by approximately 2.5 to 3 cm. 4. No acute findings in the abdomen and pelvis. Other findings as mentioned above. Abdomen X-Ray 08/13/25 16:09 Impression: 1. No acute abnormality. Chest X-Ray 08/14/25 07:12 IMPRESSION: 1. No significant change. 2. Persistent left basilar atelectasis and/or airspace disease. Labs Labs: Laboratory Results - last 24 hr 08/13/25 08/13/25 08/14/25 17:51 23:44 04:18 WBC 13.7 H RBC 4.64 Hgb 13.2 L Hct 43.7 MCV 94.2 MCH 28.4 MCHC 30.2 L RDW 13.2 Plt Count 285 MPV 11.4 H Puncture Site ABG pH ABG pCO2 ABG pO2 ABG PO2/FiO2 Ratio ABG HCO3 ABG O2 Saturation ABG O2 Content ABG Base Excess A-a Gradient Oxyhemoglobin Carboxyhemoglobin Methemoglobin Reduced Hemoglobin Total Hemoglobin O2 Delivery Device O2 Liters/Min Vent Rate FiO2 Expiratory Pressure Inspiratory Pressure Sodium 136 L Potassium 3.9 Chloride 99 Carbon Dioxide 32 H Anion Gap 5 BUN 49 H Creatinine 0.86 Estim Creat Clear Calc 83 Estimated GFR > 60 Glucose 179 H POC Capillary Glucose 181 H 155 H Calcium 8.8 Magnesium 2.9 H Total Bilirubin 0.8 AST 52 ALT 8 Alkaline Phosphatase 111 Total Protein 6.9 Albumin 3.7 Procalcitonin 0.8 08/14/25 08/14/25 05:24 12:07 WBC RBC Hgb Hct MCV MCH MCHC RDW Plt Count MPV Puncture Site Left radial ABG pH 7.528 H* ABG pCO2 37.1 ABG pO2 83.1 ABG PO2/FiO2 Ratio 1.66 ABG HCO3 30.2 H ABG O2 Saturation 97.2 ABG O2 Content 19.4 ABG Base Excess 7.2 A-a Gradient 231.7 Oxyhemoglobin 96.4 Carboxyhemoglobin 0.8 Methemoglobin 0.2 Reduced Hemoglobin 2.6 Total Hemoglobin 14.3 O2 Delivery Device Non-invasive vent O2 Liters/Min Not Reportable Vent Rate 12 FiO2 50 Expiratory Pressure 8 Inspiratory Pressure 15 Sodium Potassium Chloride Carbon Dioxide Anion Gap BUN Creatinine Estim Creat Clear Calc Estimated GFR Glucose POC Capillary Glucose 151 H Calcium Magnesium Total Bilirubin AST ALT Alkaline Phosphatase Total Protein Albumin Procalcitonin
[2025-08-14] MEDS: CEFEPIME 2 GM in SODIUM CHLORIDE 0.9% IV 50 ML 100 ML IVPB (20:36)
[2025-08-14] MEDS: CARBIDOPA/LEVODOPA 12.5/50 MG TABLET 1 TABLET FEED TUBE (20:39)
[2025-08-15] VITALS (29 sets, daily range): BP systolic 126–166; BP diastolic 45–68; PULSE 71–95; RESP 20–33; TEMP 37.2–37.8; O2SAT 92–98
[2025-08-15] MEDS: CARBIDOPA/LEVODOPA 25/100 MG TABLET 2 TABLET FEED TUBE ×3 (00:38→05:30)
[2025-08-15] MEDS: CARBIDOPA/LEVODOPA 12.5/50 MG TABLET 1 TABLET FEED TUBE ×3 (00:38→05:30)
[2025-08-15 04:11] LABS: Alveolar/Arterial O2 Gradient 204.4 mmHg; Carboxyhemoglobin 0.6 % THb (0-2.0); Fractional Inspired Oxygen 50 %; HCO3 ABG 34.4 mEq/l (22.0-26.0); Methemoglobin ABG 0.1 %THb (0-1.5); Oxygen Content ABG 18.8 %vol (16.0-22.0); Oxygen Saturation ABG 97.6 % (95.0-100.0); PCO2 ABG 49.2 mmHg (35.0-45.0); PO2 ABG 96.8 mmHg (80.0-100.0); PO2 FiO2 Ratio Arterial Blood 1.94 %; Reduced Hemoglobin 2.2 %THb (0-5.0)
[2025-08-15 04:13] LABS: Modified Allen's Test Pass; Site Drawn RIGHT RADIAL
[2025-08-15 04:21] LABS: Hematocrit 41.9 % (42.0-52.0); Hemoglobin 12.7 g/dL (14.0-18.0); Mean Corpuscular HGB Conc 30.3 g/dl (32-36); Mean Corpuscular Hemoglobin 28.3 pg (26-34); Mean Corpuscular Volume 93.3 fl (80-100); Platelet Count Result 310 k/mm3 (150-375); Red Blood Count 4.49 M/mm3 (4.6-6.20); White Blood Count 12.5 K/mm3 (4.5-10.0)
[2025-08-15 04:49] LABS: Alanine Aminotransferase 8 U/L (6-50); Albumin Level 3.6 g/dL (3.5-5.1); Alkaline Phosphatase 64 U/L (38-126); Anion Gap 4 mmol/L (4-12); Aspartate Amino Transferase 56 U/L (17-59); Bilirubin,Total 0.7 mg/dL (0.2-1.3); Blood Urea Nitrogen 65 mg/dL (9-20); Calcium 8.6 mg/dL (8.4-10.2); Carbon Dioxide 33 mmol/L (22-30); Chloride 102 mmol/L (98-107); Estimated CRCL calculation 79 ml/min; Estimated Glomerular Filt Rate > 60; Glucose 165 mg/dL (65-110); Magnesium 3.2 mg/dL (1.6-2.3); Potassium 4.1 mmol/L (3.4-5.0); Sodium 139 mmol/L (137-145); Total Protein 6.9 g/dL (6.3-8.2)
[2025-08-15] MEDS: PANTOPRAZOLE SODIUM IV 40 MG VIAL IV PUSH (08:19)
[2025-08-15] MEDS: BUMETANIDE INJ 2.5 MG/10 ML VIAL 2 MG IV PUSH (08:19)
[2025-08-15] MEDS: CEFEPIME 2 GM in SODIUM CHLORIDE 0.9% IV 50 ML 100 ML IVPB ×2 (08:19→20:08)
[2025-08-15] MEDS: METOPROLOL TARTRATE 25 MG TABLET FEED TUBE ×2 (08:20→20:08)
[2025-08-15] MEDS: SENNA/DOCUSATE SODIUM TABLET 2 TAB FEED TUBE ×2 (08:20→17:57)
[2025-08-15] MEDS: ENOXAPARIN 40 MG/0.4 ML SYRINGE SUB-Q (08:20)
[2025-08-15] MEDS: VANCOMYCIN 1,500 MG/NS 500 ML 1,500 MG/500 ML BAG 250 MG IVPB ×2 (10:00→22:08)
--- NOTE | 2025-08-15 11:07 | PCSTNOTE ---
Please refer to the Bedside Swallow Evaluation in the EMR. Please note, silent aspiration cannot be ruled out at bedside.
--- NOTE | 2025-08-15 11:26 | PCNFU ---
Nutrition Follow-Up Complete: Suboptimal Energy Intake as related to Mechanical vent as evidenced by NPO. Goal: Meet estimated nutritional needs Patient will continue current goal. Pt current nutrition is NPO. Last recorded weight is 122.6 kg. Bowel Motility: Last reported BM 08/14 Labs Reviewed:Glu 165, BUN 65, Mg 3.2 Meds Noted: Senokot, Miralax, Cefepime Skin: WNL Additional Notes: Patient currently NPO. Bedside evaluation today recommending MBS. Will make further recommends pending swallow eval. Plans for PT/OT evaluation today. Will monitor daily in ICU rounds and reassessing weight, labs, skin, diet orders, meds every 3 days.
--- NOTE | 2025-08-15 11:48 | WPDINTPN2 ---
Assessment and Plan Assessment and Plan (1) Acute respiratory failure: Code(s): J96.00 - Acute respiratory failure, unspecified whether with hypoxia or hypercapnia Status: Acute Assessment and Plan: Acute respiratory failure secondary to altered mental status, weakness from Parkinson's and pulmonary edema Patient was intubated and sedated 08/12 sedation holiday was performed and patient was trialed on PSV. Patient initially did well but eventually became more tachypneic with increased heart rate and blood pressure. On holding sedation patient appears very weak with unable to lift his hands or feet. I spoke to patient's about how he was doing prior to getting admitted. She states that he has been having difficulty breathing for last few weeks. She also felt that he was getting weaker and also had trouble swallowing. 08/13 weaning trial was performed. Patient appeared borderline but with adequate ABG and RSBI. Patient was extubated. He was placed on BiPAP overnight and BiPAP is p.r.n.. He wore BiPAP overnight and is now switched to a nasal cannula . He appears quite weak and requiring frequent suctioning to clear his respiratory secretions. . I have discussed with his and daughter. Patient's rib pains borderline and may need re-intubation. Will add EzPAP to minimize atelectasis. Continue diuretics. Patient's is okay with re-intubation if needed to give him 1 more opportunity although she does not believe patient would want tracheostomy or PEG tube placement for long-term mechanical ventilation. (2) Parkinson disease: Qualifiers: Dyskinesia presence: unspecified whether dyskinesia Fluctuating manifestations: unspecified whether manifestations fluctuate Qualified Code(s): G20.A1 - Parkinson's disease without dyskinesia, without mention of fluctuations Code(s): G20 - Parkinson's disease Status: Acute Assessment and Plan: Continue levodopa carbidopa by enteral tube Sinemet was increased to 3 pills every 6 hours discontinue Mirapex amantadine is on hold since is cannot be given through the tube (3) Congestive heart failure: Code(s): I50.9 - Heart failure, unspecified Status: Acute Assessment and Plan: Patient has edema on exam and echo shows diastolic dysfunction. I checked a BNP and was elevated Continue diuresis 03/15/2025: Echocardiogram Summary 1. Complete two-dimensional, color flow and Doppler transthoracic echocardiogram is performed. 2. Left ventricular chamber dimension is normal. 3. Left ventricular systolic function is normal, estimated at 60-65. 4. There is mild concentric increased left ventricular wall thickness. 5. The left ventricular diastolic function is grade I diastolic dysfunction. 6. E/e' 8 is minimally elevated. 7. Left atrial chamber dimension is mildly enlarged. 8. There is mild aortic valve sclerosis. 9. There is trace aortic valve regurgitation. (4) UTI (urinary tract infection): Code(s): N39.0 - Urinary tract infection, site not specified Status: Acute Assessment and Plan: negative urine culture till now Continue antibiotics (5) Agitation: Code(s): R45.1 - Restlessness and agitation Status: Acute Assessment and Plan: appears calm at this time. Now off of sedation (6) Electrolyte abnormality: Code(s): E87.8 - Other disorders of electrolyte and fluid balance, not elsewhere classified Status: Acute Assessment and Plan: potassium in normal range. Monitor. (7) Fever: Code(s): R50.9 - Fever, unspecified Status: Acute Assessment and Plan: Patient was having fever with increased respiratory secretions I suspect patient have pneumonia Repeat blood cultures sent on 08/13 sputum culture sent Continue cefepime and vancomycin (8) Dysphagia: Code(s): R13.10 - Dysphagia, unspecified Status: Acute Assessment and Plan: patient extubated but not strong enough or even bedside swallow evaluation at that time. Discussed with speech therapy. Will re-evaluate tomorrow. Continue tube feeding through NG tube. I discussed this again with patient's that patient may need PEG tube if patient is not improve enough to pass swallow study. 08/15: Appreciate speech evaluation for swallow test, recommended modified barium swallow which has been ordered Plan DVT prophylaxis -Lovenox Stress ulcer prophylaxis -PPI Nutrition -continue Tube Feeds Code Status -DNR/DNI Total Critical Care Time - 44 minutes 1216: Had multiple discussion with the and daughter and updated them with patient's condition and plan of care. I did talk about code status, both in agreement with DNR and DNI. They are aware that PT and OT will evaluate the patient, being possible get speech evaluated the patient and that he failed his swallow test at bedside, modified bedside swallow test is been ordered. I answered all the questions Due to a high probability of clinically significant, life threatening deterioration, the patient required my highest level of preparedness to intervene emergently and I personally spent this critical care time directly and personally managing the patient. This critical care time included obtaining a history; examining the patient; pulse oximetry; ordering and review of studies; arranging urgent treatment with development of a management plan; evaluation of patient's response to treatment; frequent reassessment; and discussions with other providers. It was exclusive of separately billable procedures and treating other patients and teaching time. Please see Assessment and Plan section and the rest of the note for further information on patient assessment and treatment Subjective Date/time seen: 08/15/25 11:48 Interval history: Reason for consult: Acute respiratory failure, pneumonia, congestive heart failure, UTI, restlessness/agitation 08/15/2025: Patient seen and examined the ICU this morning, patient is awake, alert, able to nod to questions and follows simple commands. Denies any shortness of breath or chest pain at this time, denies any abdominal pain. Wore his BiPAP overnight, currently on nasal cannula and tolerating well. Good response to diuresis with adequate urine output and negative fluid balance in the last 24 hours, afebrile Review of Systems Review of Systems: All systems reviewed & are unremarkable except as noted in HPI and below Exam Narrative: General: Pt is alert awake and in no distress HEENT: Pupils equal and reactive, sclera is clear, dry oral mucosa Lungs/Chest: Trachea central Coarse BS B/L, No crackles or wheezing. breath sounds decreased at bases Cardiac: RRR. Normal S1 S2. No murmurs Circulation: Pedal pulses are intact and symmetrical. Abdomen: Decreased bowel sounds. Obese. Soft. NT. ND. NG tube in place Extremities: No clubbing, cyanosis, mild pedal edema present : Brower in place Neurologic: he is awake, alert, follows commands, nods to questions. Moves all 4 extremities Objective Data Vital Signs Vital Signs: Vital Signs - 24 hr 08/14/25 12:00 08/14/25 12:07 08/14/25 12:23 Temperature 100.3 F H 100.6 F H Pulse Rate 78 Respiratory Rate 22 H Blood Pressure 116/42 L Pulse Oximetry 96 96 Oxygen Delivery Oxygen Flow Rate 6 Fraction of Inspired Oxygen 08/14/25 12:26 08/14/25 13:00 08/14/25 14:00 Temperature 100.1 F H 100.0 F H Pulse Rate 78 81 86 Respiratory Rate 26 H 33 H Blood Pressure 128/50 L 122/44 L Pulse Oximetry 95 94 Oxygen Delivery Oxygen Flow Rate Fraction of Inspired Oxygen 08/14/25 14:00 08/14/25 14:03 08/14/25 15:01 Temperature 100.1 F H Pulse Rate 82 84 81 Respiratory Rate 22 H 21 H Blood Pressure 127/45 L Pulse Oximetry 94 95 Oxygen Delivery High Flow Nasal Cannula Oxygen Flow Rate 5 Fraction of Inspired Oxygen 08/14/25 16:00 08/14/25 16:08 08/14/25 16:46 Temperature 99.9 F H Pulse Rate 81 80 Respiratory Rate 20 Blood Pressure 123/40 L Pulse Oximetry 96 96 Oxygen Delivery Oxygen Flow Rate 5 Fraction of Inspired Oxygen 08/14/25 17:00 08/14/25 18:00 08/14/25 18:00 Temperature 99.4 F 99.4 F Pulse Rate 76 75 76 Respiratory Rate 15 24 H Blood Pressure 131/43 L 125/43 L Pulse Oximetry 96 96 Oxygen Delivery Oxygen Flow Rate Fraction of Inspired Oxygen 08/14/25 19:00 08/14/25 19:38 08/14/25 20:00 Temperature 99.4 F Pulse Rate 78 75 75 Respiratory Rate 24 H 20 20 Blood Pressure 128/44 L Pulse Oximetry 95 96 96 Oxygen Delivery High Flow Nasal Cannula High Flow Nasal Cannula Oxygen Flow Rate 5 5 Fraction of Inspired Oxygen 40 08/14/25 20:00 08/14/25 20:00 08/14/25 21:00 Temperature 99.4 F 98.4 F Pulse Rate 74 74 46 L Respiratory Rate 19 18 Blood Pressure 123/46 L 115/44 L Pulse Oximetry 96 95 Oxygen Delivery Oxygen Flow Rate Fraction of Inspired Oxygen 08/14/25 22:00 08/14/25 22:00 08/14/25 22:14 Temperature Pulse Rate 73 74 75 Respiratory Rate 20 24 H Blood Pressure 116/44 L Pulse Oximetry 94 95 Oxygen Delivery BiPAP Oxygen Flow Rate Fraction of Inspired Oxygen 08/14/25 23:00 08/15/25 00:00 08/15/25 00:00 Temperature Pulse Rate 71 71 72 Respiratory Rate 22 H 22 H Blood Pressure 129/47 L Pulse Oximetry 96 96 Oxygen Delivery BiPAP Oxygen Flow Rate Fraction of Inspired Oxygen 40 08/15/25 00:00 08/15/25 01:00 08/15/25 01:19 Temperature 99.3 F 99.2 F Pulse Rate 72 72 72 Respiratory Rate 22 H 22 H 21 H Blood Pressure 138/46 L 144/47 H Pulse Oximetry 96 96 96 Oxygen Delivery BiPAP Oxygen Flow Rate Fraction of Inspired Oxygen 08/15/25 02:00 08/15/25 02:00 08/15/25 02:57 Temperature 99.1 F Pulse Rate 73 73 74 Respiratory Rate 22 H 20 Blood Pressure 144/58 H 139/47 L Pulse Oximetry 96 97 Oxygen Delivery Oxygen Flow Rate Fraction of Inspired Oxygen 08/15/25 04:00 08/15/25 04:00 08/15/25 04:00 Temperature 99.2 F Pulse Rate 80 79 79 Respiratory Rate 33 H 30 H Blood Pressure 157/52 H Pulse Oximetry 97 96 Oxygen Delivery BiPAP Oxygen Flow Rate Fraction of Inspired Oxygen 40 08/15/25 04:03 08/15/25 05:00 08/15/25 06:00 Temperature 99.3 F Pulse Rate 80 79 77 Respiratory Rate 33 H 26 H Blood Pressure 151/55 H Pulse Oximetry 97 97 Oxygen Delivery BiPAP Oxygen Flow Rate Fraction of Inspired Oxygen 08/15/25 06:00 08/15/25 08:00 08/15/25 08:00 Temperature 99.1 F 99.2 F Pulse Rate 78 81 81 Respiratory Rate 22 H 32 H Blood Pressure 152/45 H 157/47 H Pulse Oximetry 98 98 Oxygen Delivery Oxygen Flow Rate Fraction of Inspired Oxygen 08/15/25 08:20 08/15/25 09:00 08/15/25 10:00 Temperature 99.0 F 99.1 F Pulse Rate 81 76 75 Respiratory Rate 21 H 25 H Blood Pressure 144/45 H 126/48 L Pulse Oximetry 94 93 Oxygen Delivery Oxygen Flow Rate Fraction of Inspired Oxygen 08/15/25 11:00 Temperature 99.4 F Pulse Rate 95 Respiratory Rate 26 H Blood Pressure 139/50 L Pulse Oximetry 95 Oxygen Delivery Oxygen Flow Rate Fraction of Inspired Oxygen Intake/Output Intake/Output: Intake & Output 08/12/25 08/13/25 08/14/25 08/15/25 23:59 23:59 23:59 23:59 Intake Total 2337.0 2447.5 1371 732 Output Total 3085 6805 2550 650 Balance 412.0 -77.5 -1179 82 Meds/Results Medications: Active Medications Generic Name Dose Route Start Last Admin Trade Name Freq PRN Reason Stop Dose Admin Acetaminophen 650 mg 08/09/25 22:21 08/14/25 12:07 Acetaminophen Elixir 325 Mg/10.15 Ml Udc FEED TUBE 650 mg Q4H PRN Administration Fever Albuterol 2 puff 08/08/25 09:01 Albuterol Sulfate (*Sp) Aerosol 1 Puff INHALATION Q4HRT PRN Shortness Of Breath Or Wheezing Amantadine HCl 100 mg 08/10/25 09:00 08/10/25 10:37 Amantadine Hcl 100 Mg Capsule FEED TUBE Not Given On Hold: 08/10/25 12:13 TID DALE Amlodipine Besylate 10 mg 08/14/25 09:00 08/15/25 08:20 Amlodipine Besylate 10 Mg Tablet FEED TUBE 10 mg DAILY DALE Administration Bisacodyl 10 mg 08/11/25 07:45 08/13/25 08:00 Bisacodyl 10 Mg Suppository RECTAL 10 mg QAM PRN Administration Constipation Carbidopa/Levodopa 3 tablet 08/15/25 21:00 Carbidopa/Levodopa 25/100 Mg Tablet PO 00,03,06,21 DALE Dextrose 12.5 gm 08/09/25 18:34 Dextrose 50% 25 Gm/50 Ml Syringe IV PUSH PRN PRN Hypoglycemia Protocol Enoxaparin Sodium 40 mg 08/10/25 09:00 08/15/25 08:20 Enoxaparin 40 Mg/0.4 Ml Syringe SUB-Q 40 mg DAILY DALE Administration Fluticasone Propionate 2 spray 08/08/25 09:01 Fluticasone Propionate 0.05% Na Spr 16 Gm Btl (*Bkc) NASAL PRN PRN allergies Glucagon 1 mg 08/09/25 18:34 Glucagon For Inj 1 Mg Vial IM PRN PRN Hypoglycemia Protocol Glucose 15 gm 08/09/25 18:34 Glucose Oral Gel 15 Gm Of Glucse In 37.5 Gm Tube PO PRN PRN Hypoglycemia Protocol Hydralazine HCl 20 mg 08/12/25 12:27 08/14/25 04:10 Hydralazine Hcl 20 Mg/Ml Vial IV PUSH 20 mg Q4H PRN Administration SBP more than 160 Dextrose 1,000 mls @ 100 mls/hr 08/09/25 18:34 Dextrose 5% 1,000 Ml IVPB PRN PRN Hypoglycemia Protocol Cefepime HCl 2 gm/ Sodium 50 mls @ 100 mls/hr 08/14/25 21:00 08/15/25 08:19 Chloride IVPB 100 mls/hr Q12H DALE Administration Vancomycin HCl 1,500 mg in 500 mls @ 250 mls/hr 08/14/25 22:00 08/14/25 22:41 Vancomycin 1,500 Mg/Ns 500 Ml IVPB 250 mls/hr Q12H DALE Administration Insulin Aspart 2 - 5 units 08/10/25 12:00 08/15/25 11:38 Insulin Aspart (*Bkc) 100 Units/Ml SUB-Q Not Given Q6HR [facility] Protocol Labetalol HCl 20 mg 08/14/25 07:45 Labetalol Hcl Inj 100 Mg/20 Ml Vial IV PUSH Q4H PRN SBP > 160 and HR> 60 -1st choice Metoprolol Tartrate 25 mg 08/14/25 09:00 08/15/25 08:20 Metoprolol Tartrate 25 Mg Tablet FEED TUBE 25 mg Q12HR DALE Administration Morphine Sulfate 4 mg 08/12/25 14:33 08/12/25 14:46 Morphine Sulfate (*Crx) 4 Mg/Ml Inj IV PUSH 4 mg Q1H PRN Administration Pain while on vent Multi-Ingred Cream/Lotion/Oil/Oint 1 applic 08/09/25 21:00 08/15/25 08:20 Mineral Oil/White Petrolatum Ointment EACH EYE Not Given Q12HR [facility] Pantoprazole Sodium 40 mg 08/10/25 09:00 08/15/25 08:19 Pantoprazole Sodium Iv 40 Mg Vial IV PUSH 40 mg QAM DALE Administration Polyethylene Glycol 17 gm 08/15/25 07:11 Polyethylene Glycol 3350 17 Gm Powd.Pack FEED TUBE QAM PRN Constipation Pramipexole Dihydrochloride 1 mg 08/10/25 09:00 08/14/25 08:24 Pramipexole 1 Mg Tablet FEED TUBE 1 mg On Hold: 08/14/25 10:56 TID DALE Administration Senna/Docusate Sodium 2 tab 08/10/25 09:00 08/15/25 08:20 Senna/Docusate Sodium Tablet FEED TUBE 2 tab BID DALE Administration Trazodone HCl 50 mg 08/14/25 21:00 08/14/25 20:36 Trazodone Hcl 50 Mg Tablet FEED TUBE 50 mg QHS DALE Administration Radiology Results: ITS Impressions Knee X-Ray 08/07/25 18:51 IMPRESSION: 1. No acute bony lesions. 2 osteopenic bones. Severe arthritis predominantly of patellofemoral joint. Please correlate with DEXA densitometry. 3 if symptoms are localized and persistent, MRI is indicated. Venous Doppler Study 08/07/25 20:49 IMPRESSION: 1. No deep venous thrombosis in the right lower extremity veins.. Ankle X-Ray 08/09/25 14:44 Impression: No acute fracture or malalignment. Wrist X-Ray 08/09/25 14:44 Impression: No acute fracture or malalignment. Head CT 08/09/25 20:23 IMPRESSION: 1. No acute findings in this limited noncontrast CT head. Chest/Abdomen/Pelvis CT 08/09/25 20:29 IMPRESSION: 1. Limited noncontrast examination is not optimal to evaluate solid viscera, vascular structures and neoplasms. 2. No acute pulmonary findings. Minimal platelike atelectasis of lung bases. 3. Tip of the endotracheal tube is low in position, just above the allie. Please reposition this ET tube more proximally by approximately 2.5 to 3 cm. 4. No acute findings in the abdomen and pelvis. Other findings as mentioned above. Abdomen X-Ray 08/13/25 16:09 Impression: 1. No acute abnormality. Chest X-Ray 08/14/25 07:12 IMPRESSION: 1. No significant change. 2. Persistent left basilar atelectasis and/or airspace disease. Labs Labs: Laboratory Results - last 24 hr 08/14/25 08/14/25 08/14/25 04:18 12:07 16:33 WBC RBC Hgb Hct MCV MCH MCHC RDW Plt Count MPV Puncture Site ABG pH ABG pCO2 ABG pO2 ABG PO2/FiO2 Ratio ABG HCO3 ABG O2 Saturation ABG O2 Content ABG Base Excess A-a Gradient Oxyhemoglobin Carboxyhemoglobin Methemoglobin Reduced Hemoglobin Total Hemoglobin O2 Delivery Device O2 Liters/Min FiO2 Expiratory Pressure Inspiratory Pressure Sodium Potassium Chloride Carbon Dioxide Anion Gap BUN Creatinine Estim Creat Clear Calc Estimated GFR Glucose POC Capillary Glucose 151 H 152 H Calcium Magnesium Total Bilirubin AST ALT Alkaline Phosphatase Total Protein Albumin Procalcitonin 0.8 Vancomycin Trough 08/14/25 08/14/25 08/15/25 18:15 20:56 00:37 WBC RBC Hgb Hct MCV MCH MCHC RDW Plt Count MPV Puncture Site ABG pH ABG pCO2 ABG pO2 ABG PO2/FiO2 Ratio ABG HCO3 ABG O2 Saturation ABG O2 Content ABG Base Excess A-a Gradient Oxyhemoglobin Carboxyhemoglobin Methemoglobin Reduced Hemoglobin Total Hemoglobin O2 Delivery Device O2 Liters/Min FiO2 Expiratory Pressure Inspiratory Pressure Sodium Potassium Chloride Carbon Dioxide Anion Gap BUN Creatinine Estim Creat Clear Calc Estimated GFR Glucose POC Capillary Glucose 157 H 166 H Calcium Magnesium Total Bilirubin AST ALT Alkaline Phosphatase Total Protein Albumin Procalcitonin Vancomycin Trough 11.5 08/15/25 08/15/25 08/15/25 03:59 04:05 05:35 WBC 12.5 H RBC 4.49 L Hgb 12.7 L Hct 41.9 L MCV 93.3 MCH 28.3 MCHC 30.3 L RDW 13.7 Plt Count 310 MPV 10.9 H Puncture Site Right radial ABG pH 7.463 H ABG pCO2 49.2 H ABG pO2 96.8 ABG PO2/FiO2 Ratio 1.94 ABG HCO3 34.4 H ABG O2 Saturation 97.6 ABG O2 Content 18.8 ABG Base Excess 9.2 A-a Gradient 204.4 Oxyhemoglobin 97.1 Carboxyhemoglobin 0.6 Methemoglobin 0.1 Reduced Hemoglobin 2.2 Total Hemoglobin 13.7 O2 Delivery Device Bipap O2 Liters/Min Not Reportable FiO2 50 Expiratory Pressure 8 Inspiratory Pressure 15 Sodium 139 Potassium 4.1 Chloride 102 Carbon Dioxide 33 H Anion Gap 4 BUN 65 H D Creatinine 0.90 Estim Creat Clear Calc 79 Estimated GFR > 60 Glucose 165 H POC Capillary Glucose 155 H Calcium 8.6 Magnesium 3.2 H Total Bilirubin 0.7 AST 56 ALT 8 Alkaline Phosphatase 64 Total Protein 6.9 Albumin 3.6 Procalcitonin Vancomycin Trough 08/15/25 08/15/25 07:30 11:02 WBC RBC Hgb Hct MCV MCH MCHC RDW Plt Count MPV Puncture Site ABG pH ABG pCO2 ABG pO2 ABG PO2/FiO2 Ratio ABG HCO3 ABG O2 Saturation ABG O2 Content ABG Base Excess A-a Gradient Oxyhemoglobin Carboxyhemoglobin Methemoglobin Reduced Hemoglobin Total Hemoglobin O2 Delivery Device O2 Liters/Min FiO2 Expiratory Pressure Inspiratory Pressure Sodium Potassium Chloride Carbon Dioxide Anion Gap BUN Creatinine Estim Creat Clear Calc Estimated GFR Glucose POC Capillary Glucose 168 H 152 H Calcium Magnesium Total Bilirubin AST ALT Alkaline Phosphatase Total Protein Albumin Procalcitonin Vancomycin Trough Quality VTE Prophylaxis VTE prophylaxis: pharmacologic ordered
--- NOTE | 2025-08-15 17:31 | PM.IMPN2 ---
Assessment and Plan Assessment and Plan (1) Acute respiratory failure: Code(s): J96.00 - Acute respiratory failure, unspecified whether with hypoxia or hypercapnia Status: Acute Assessment and Plan: Acute respiratory failure secondary to altered mental status and pulmonary edema Patient now intubated and sedated Vent management per ICU Extubated 08/13/2025 to high-flow nasal cannula and BiPAP at night Continue frequent suctioning (2) Parkinson disease: Qualifiers: Dyskinesia presence: unspecified whether dyskinesia Fluctuating manifestations: unspecified whether manifestations fluctuate Qualified Code(s): G20.A1 - Parkinson's disease without dyskinesia, without mention of fluctuations Code(s): G20 - Parkinson's disease Status: Acute Assessment and Plan: Continue levodopa carbidopa by enteral tube Continue Mirapex amantadine is on hold since is cannot be given through the tube (3) Congestive heart failure: Code(s): I50.9 - Heart failure, unspecified Status: Acute Assessment and Plan: Patient has edema on exam and echo shows diastolic dysfunction. Elevated BNP Continuet Lasix IV (4) UTI (urinary tract infection): Code(s): N39.0 - Urinary tract infection, site not specified Status: Acute Assessment and Plan: Check urine culture and continue Rocephin (5) Agitation: Code(s): R45.1 - Restlessness and agitation Status: Acute Assessment and Plan: Now off sedation (6) Electrolyte abnormality: Code(s): E87.8 - Other disorders of electrolyte and fluid balance, not elsewhere classified Status: Acute Assessment and Plan: Replace low K Plan Fever: Repeat blood culture sent 08/13 on vancomycin and cefepime. Dysphagia: Speech to evaluate . mbs planned in am. DVT prophylaxis -Lovenox Stress ulcer prophylaxis -PPI Nutrition -continue Tube Feeds Code Status - Full Code Subjective Date/time seen: 08/15/25 17:31 Interval history: Patient more awake used BiPAP last night on 5 L oxygen. Mildly febrile. Plan for MBS in morning. Review of Systems Review of Systems: ROS unobtainable: Yes unobtainable due to medical condition Exam Narrative: General: Pt is Lungs/Chest: Trachea central Coarse BS B/L, No crackles or wheezing. Cardiac: RRR. Normal S1 S2. No murmurs Circulation: Pedal pulses are intact and symmetrical. Abdomen: Decreased bowel sounds. Obese. Soft. NT. ND. Extremities: No clubbing, cyanosis, mild pedal edema present : Brower in place Neurologic: Somnolent, follow some commands Objective Data Vital Signs Vital Signs: Vital Signs - 24 hr 08/14/25 18:00 08/14/25 18:00 08/14/25 19:00 Temperature 99.4 F 99.4 F Pulse Rate 75 76 78 Respiratory Rate 24 H 24 H Blood Pressure 125/43 L 128/44 L Pulse Oximetry 96 95 Oxygen Delivery Oxygen Flow Rate Fraction of Inspired Oxygen 08/14/25 19:38 08/14/25 20:00 08/14/25 20:00 Temperature Pulse Rate 75 75 74 Respiratory Rate 20 20 Blood Pressure Pulse Oximetry 96 96 Oxygen Delivery High Flow Nasal Cannula High Flow Nasal Cannula Oxygen Flow Rate 5 5 Fraction of Inspired Oxygen 40 08/14/25 20:00 08/14/25 21:00 08/14/25 22:00 Temperature 99.4 F 98.4 F Pulse Rate 74 46 L 73 Respiratory Rate 19 18 Blood Pressure 123/46 L 115/44 L Pulse Oximetry 96 95 Oxygen Delivery Oxygen Flow Rate Fraction of Inspired Oxygen 08/14/25 22:00 08/14/25 22:14 08/14/25 23:00 Temperature Pulse Rate 74 75 71 Respiratory Rate 20 24 H 22 H Blood Pressure 116/44 L 129/47 L Pulse Oximetry 94 95 96 Oxygen Delivery BiPAP Oxygen Flow Rate Fraction of Inspired Oxygen 08/15/25 00:00 08/15/25 00:00 08/15/25 00:00 Temperature 99.3 F Pulse Rate 71 72 72 Respiratory Rate 22 H 22 H Blood Pressure 138/46 L Pulse Oximetry 96 96 Oxygen Delivery BiPAP Oxygen Flow Rate Fraction of Inspired Oxygen 40 08/15/25 01:00 08/15/25 01:19 08/15/25 02:00 Temperature 99.2 F Pulse Rate 72 72 73 Respiratory Rate 22 H 21 H Blood Pressure 144/47 H Pulse Oximetry 96 96 Oxygen Delivery BiPAP Oxygen Flow Rate Fraction of Inspired Oxygen 08/15/25 02:00 08/15/25 02:57 08/15/25 04:00 Temperature 99.1 F Pulse Rate 73 74 80 Respiratory Rate 22 H 20 33 H Blood Pressure 144/58 H 139/47 L Pulse Oximetry 96 97 97 Oxygen Delivery BiPAP Oxygen Flow Rate Fraction of Inspired Oxygen 40 08/15/25 04:00 08/15/25 04:00 08/15/25 04:03 Temperature 99.2 F Pulse Rate 79 79 80 Respiratory Rate 30 H 33 H Blood Pressure 157/52 H Pulse Oximetry 96 97 Oxygen Delivery BiPAP Oxygen Flow Rate Fraction of Inspired Oxygen 08/15/25 05:00 08/15/25 06:00 08/15/25 06:00 Temperature 99.3 F 99.1 F Pulse Rate 79 77 78 Respiratory Rate 26 H 22 H Blood Pressure 151/55 H 152/45 H Pulse Oximetry 97 98 Oxygen Delivery Oxygen Flow Rate Fraction of Inspired Oxygen 08/15/25 08:00 08/15/25 08:00 08/15/25 08:00 Temperature 99.2 F Pulse Rate 81 81 82 Respiratory Rate 32 H 28 H Blood Pressure 157/47 H Pulse Oximetry 98 95 Oxygen Delivery Nasal Cannula Oxygen Flow Rate 5 Fraction of Inspired Oxygen 08/15/25 08:20 08/15/25 09:00 08/15/25 10:00 Temperature 99.0 F 99.1 F Pulse Rate 81 76 75 Respiratory Rate 21 H 25 H Blood Pressure 144/45 H 126/48 L Pulse Oximetry 94 93 Oxygen Delivery Oxygen Flow Rate Fraction of Inspired Oxygen 08/15/25 11:00 08/15/25 12:00 08/15/25 12:00 Temperature 99.4 F 99.7 F H Pulse Rate 95 85 89 Respiratory Rate 26 H 27 H 24 H Blood Pressure 139/50 L 161/61 H Pulse Oximetry 95 94 96 Oxygen Delivery Nasal Cannula Oxygen Flow Rate 5 Fraction of Inspired Oxygen 08/15/25 12:00 08/15/25 12:15 08/15/25 14:00 Temperature Pulse Rate 85 88 90 Respiratory Rate Blood Pressure Pulse Oximetry 97 Oxygen Delivery High Flow Nasal Cannula Oxygen Flow Rate 5 Fraction of Inspired Oxygen 08/15/25 14:00 08/15/25 15:00 08/15/25 16:00 Temperature 99.6 F Pulse Rate 89 90 90 Respiratory Rate 27 H 29 H Blood Pressure 164/68 H 159/64 H Pulse Oximetry 94 92 Oxygen Delivery Oxygen Flow Rate Fraction of Inspired Oxygen 08/15/25 16:00 08/15/25 16:00 08/15/25 17:00 Temperature 99.9 F H 100.0 F H Pulse Rate 89 87 88 Respiratory Rate 26 H 23 H 26 H Blood Pressure 146/59 H 149/56 H Pulse Oximetry 93 95 93 Oxygen Delivery Nasal Cannula Oxygen Flow Rate 5 Fraction of Inspired Oxygen Intake/Output Intake/Output: Intake & Output 08/12/25 08/13/25 08/14/25 08/15/25 23:59 23:59 23:59 23:59 Intake Total 2337.0 2447.5 1371 1148.7 Output Total 1925 2525 2550 1400 Balance 412.0 -77.5 -1179 -251.3 Meds/Results Medications: Active Medications Generic Name Dose Route Start Last Admin Trade Name Freq PRN Reason Stop Dose Admin Acetaminophen 650 mg 08/09/25 22:21 08/14/25 12:07 Acetaminophen Elixir 325 Mg/10.15 Ml Udc FEED TUBE 650 mg Q4H PRN Administration Fever Albuterol 2 puff 08/08/25 09:01 Albuterol Sulfate (*Sp) Aerosol 1 Puff INHALATION Q4HRT PRN Shortness Of Breath Or Wheezing Amantadine HCl 100 mg 08/10/25 09:00 08/10/25 10:37 Amantadine Hcl 100 Mg Capsule FEED TUBE Not Given On Hold: 08/10/25 12:13 TID DALE Amlodipine Besylate 10 mg 08/14/25 09:00 08/15/25 08:20 Amlodipine Besylate 10 Mg Tablet FEED TUBE 10 mg DAILY DALE Administration Bisacodyl 10 mg 08/11/25 07:45 08/13/25 08:00 Bisacodyl 10 Mg Suppository RECTAL 10 mg QAM PRN Administration Constipation Carbidopa/Levodopa 3 tablet 08/15/25 21:00 Carbidopa/Levodopa 25/100 Mg Tablet PO 00,03,06,21 DALE Dextrose 12.5 gm 08/09/25 18:34 Dextrose 50% 25 Gm/50 Ml Syringe IV PUSH PRN PRN Hypoglycemia Protocol Enoxaparin Sodium 40 mg 08/10/25 09:00 08/15/25 08:20 Enoxaparin 40 Mg/0.4 Ml Syringe SUB-Q 40 mg DAILY DALE Administration Fluticasone Propionate 2 spray 08/08/25 09:01 Fluticasone Propionate 0.05% Na Spr 16 Gm Btl (*Bkc) NASAL PRN PRN allergies Glucagon 1 mg 08/09/25 18:34 Glucagon For Inj 1 Mg Vial IM PRN PRN Hypoglycemia Protocol Glucose 15 gm 08/09/25 18:34 Glucose Oral Gel 15 Gm Of Glucse In 37.5 Gm Tube PO PRN PRN Hypoglycemia Protocol Hydralazine HCl 20 mg 08/12/25 12:27 08/14/25 04:10 Hydralazine Hcl 20 Mg/Ml Vial IV PUSH 20 mg Q4H PRN Administration SBP more than 160 Dextrose 1,000 mls @ 100 mls/hr 08/09/25 18:34 Dextrose 5% 1,000 Ml IVPB PRN PRN Hypoglycemia Protocol Cefepime HCl 2 gm/ Sodium 50 mls @ 100 mls/hr 08/14/25 21:00 08/15/25 08:19 Chloride IVPB 100 mls/hr Q12H DALE Administration Vancomycin HCl 1,500 mg in 500 mls @ 250 mls/hr 08/14/25 22:00 08/15/25 10:00 Vancomycin 1,500 Mg/Ns 500 Ml IVPB 250 mls/hr Q12H DALE Administration Insulin Aspart 2 - 5 units 08/10/25 12:00 08/15/25 11:38 Insulin Aspart (*Bkc) 100 Units/Ml SUB-Q Not Given Q6HR DALE Protocol Labetalol HCl 20 mg 08/14/25 07:45 Labetalol Hcl Inj 100 Mg/20 Ml Vial IV PUSH Q4H PRN SBP > 160 and HR> 60 -1st choice Metoprolol Tartrate 25 mg 08/14/25 09:00 08/15/25 08:20 Metoprolol Tartrate 25 Mg Tablet FEED TUBE 25 mg Q12HR DALE Administration Morphine Sulfate 4 mg 08/12/25 14:33 08/12/25 14:46 Morphine Sulfate (*Crx) 4 Mg/Ml Inj IV PUSH 4 mg Q1H PRN Administration Pain while on vent Multi-Ingred Cream/Lotion/Oil/Oint 1 applic 08/09/25 21:00 08/15/25 08:20 Mineral Oil/White Petrolatum Ointment EACH EYE Not Given Q12HR DALE Pantoprazole Sodium 40 mg 08/10/25 09:00 08/15/25 08:19 Pantoprazole Sodium Iv 40 Mg Vial IV PUSH 40 mg QAM DALE Administration Polyethylene Glycol 17 gm 08/15/25 07:11 Polyethylene Glycol 3350 17 Gm Powd.Pack FEED TUBE QAM PRN Constipation Pramipexole Dihydrochloride 1 mg 08/10/25 09:00 08/14/25 08:24 Pramipexole 1 Mg Tablet FEED TUBE 1 mg On Hold: 08/14/25 10:56 TID DALE Administration Senna/Docusate Sodium 2 tab 08/10/25 09:00 08/15/25 08:20 Senna/Docusate Sodium Tablet FEED TUBE 2 tab BID DALE Administration Trazodone HCl 50 mg 08/14/25 21:00 08/14/25 20:36 Trazodone Hcl 50 Mg Tablet FEED TUBE 50 mg QHS DALE Administration Radiology Results: ITS Impressions Knee X-Ray 08/07/25 18:51 IMPRESSION: 1. No acute bony lesions. 2 osteopenic bones. Severe arthritis predominantly of patellofemoral joint. Please correlate with DEXA densitometry. 3 if symptoms are localized and persistent, MRI is indicated. Venous Doppler Study 08/07/25 20:49 IMPRESSION: 1. No deep venous thrombosis in the right lower extremity veins.. Ankle X-Ray 08/09/25 14:44 Impression: No acute fracture or malalignment. Wrist X-Ray 08/09/25 14:44 Impression: No acute fracture or malalignment. Head CT 08/09/25 20:23 IMPRESSION: 1. No acute findings in this limited noncontrast CT head. Chest/Abdomen/Pelvis CT 08/09/25 20:29 IMPRESSION: 1. Limited noncontrast examination is not optimal to evaluate solid viscera, vascular structures and neoplasms. 2. No acute pulmonary findings. Minimal platelike atelectasis of lung bases. 3. Tip of the endotracheal tube is low in position, just above the allie. Please reposition this ET tube more proximally by approximately 2.5 to 3 cm. 4. No acute findings in the abdomen and pelvis. Other findings as mentioned above. Abdomen X-Ray 08/13/25 16:09 Impression: 1. No acute abnormality. Chest X-Ray 08/14/25 07:12 IMPRESSION: 1. No significant change. 2. Persistent left basilar atelectasis and/or airspace disease. Labs Labs: Laboratory Results - last 24 hr 08/14/25 08/14/25 08/15/25 18:15 20:56 00:37 WBC RBC Hgb Hct MCV MCH MCHC RDW Plt Count MPV Puncture Site ABG pH ABG pCO2 ABG pO2 ABG PO2/FiO2 Ratio ABG HCO3 ABG O2 Saturation ABG O2 Content ABG Base Excess A-a Gradient Oxyhemoglobin Carboxyhemoglobin Methemoglobin Reduced Hemoglobin Total Hemoglobin O2 Delivery Device O2 Liters/Min FiO2 Expiratory Pressure Inspiratory Pressure Sodium Potassium Chloride Carbon Dioxide Anion Gap BUN Creatinine Estim Creat Clear Calc Estimated GFR Glucose POC Capillary Glucose 157 H 166 H Calcium Magnesium Total Bilirubin AST ALT Alkaline Phosphatase Total Protein Albumin Vancomycin Trough 11.5 08/15/25 08/15/25 08/15/25 03:59 04:05 05:35 WBC 12.5 H RBC 4.49 L Hgb 12.7 L Hct 41.9 L MCV 93.3 MCH 28.3 MCHC 30.3 L RDW 13.7 Plt Count 310 MPV 10.9 H Puncture Site Right radial ABG pH 7.463 H ABG pCO2 49.2 H ABG pO2 96.8 ABG PO2/FiO2 Ratio 1.94 ABG HCO3 34.4 H ABG O2 Saturation 97.6 ABG O2 Content 18.8 ABG Base Excess 9.2 A-a Gradient 204.4 Oxyhemoglobin 97.1 Carboxyhemoglobin 0.6 Methemoglobin 0.1 Reduced Hemoglobin 2.2 Total Hemoglobin 13.7 O2 Delivery Device Bipap O2 Liters/Min Not Reportable FiO2 50 Expiratory Pressure 8 Inspiratory Pressure 15 Sodium 139 Potassium 4.1 Chloride 102 Carbon Dioxide 33 H Anion Gap 4 BUN 65 H D Creatinine 0.90 Estim Creat Clear Calc 79 Estimated GFR > 60 Glucose 165 H POC Capillary Glucose 155 H Calcium 8.6 Magnesium 3.2 H Total Bilirubin 0.7 AST 56 ALT 8 Alkaline Phosphatase 64 Total Protein 6.9 Albumin 3.6 Vancomycin Trough 08/15/25 08/15/25 07:30 11:02 WBC RBC Hgb Hct MCV MCH MCHC RDW Plt Count MPV Puncture Site ABG pH ABG pCO2 ABG pO2 ABG PO2/FiO2 Ratio ABG HCO3 ABG O2 Saturation ABG O2 Content ABG Base Excess A-a Gradient Oxyhemoglobin Carboxyhemoglobin Methemoglobin Reduced Hemoglobin Total Hemoglobin O2 Delivery Device O2 Liters/Min FiO2 Expiratory Pressure Inspiratory Pressure Sodium Potassium Chloride Carbon Dioxide Anion Gap BUN Creatinine Estim Creat Clear Calc Estimated GFR Glucose POC Capillary Glucose 168 H 152 H Calcium Magnesium Total Bilirubin AST ALT Alkaline Phosphatase Total Protein Albumin Vancomycin Trough
[2025-08-15] MEDS: CARBIDOPA/LEVODOPA 25/100 MG TABLET 3 TABLET PO ×2 (20:08→23:29)
[2025-08-16] VITALS (19 sets, daily range): BP systolic 135–155; BP diastolic 50–65; PULSE 78–101; RESP 18–31; TEMP 36.6–37.9; O2SAT 92–97
[2025-08-16] MEDS: MELATONIN 5 MG TABLET 10 MG FEED TUBE (00:36)
[2025-08-16] MEDS: CARBIDOPA/LEVODOPA 25/100 MG TABLET 3 TABLET PO ×4 (03:03→23:20)
[2025-08-16 04:23] LABS: Hematocrit 42.9 % (42.0-52.0); Hemoglobin 13.1 g/dL (14.0-18.0); Immature Granulocyte Percent A 1.3 % (0-0.5); Lymphocytes Absolute Auto 1.30 K/mm3 (0.9-3.2); Mean Corpuscular HGB Conc 30.5 g/dl (32-36); Mean Corpuscular Hemoglobin 28.4 pg (26-34); Mean Corpuscular Volume 93.1 fl (80-100); Nucleated Red Blood Cells Absolute Auto 0.000 K/mm3 (0.0-0.012); Nucleated Red Blood Cells Perc 0.0 % (0.0-0.2); Platelet Count Result 300 k/mm3 (150-375); Red Blood Count 4.61 M/mm3 (4.6-6.20); White Blood Count 11.3 K/mm3 (4.5-10.0)
[2025-08-16 04:40] LABS: Alanine Aminotransferase 10 U/L (6-50); Albumin Level 3.5 g/dL (3.5-5.1); Alkaline Phosphatase 66 U/L (38-126); Anion Gap 5 mmol/L (4-12); Aspartate Amino Transferase 67 U/L (17-59); Bilirubin,Total 0.8 mg/dL (0.2-1.3); Blood Urea Nitrogen 57 mg/dL (9-20); Calcium 8.9 mg/dL (8.4-10.2); Carbon Dioxide 34 mmol/L (22-30); Chloride 105 mmol/L (98-107); Estimated CRCL calculation 85 ml/min; Estimated Glomerular Filt Rate > 60; Glucose 166 mg/dL (65-110); Magnesium 2.8 mg/dL (1.6-2.3); Potassium 4.2 mmol/L (3.4-5.0); Sodium 144 mmol/L (137-145); Total Protein 6.9 g/dL (6.3-8.2)
--- NOTE | 2025-08-16 08:19 | P.PNINT_ITS ---
Assessment and Plan Assessment and Plan (1) Acute respiratory failure: Code(s): J96.00 - Acute respiratory failure, unspecified whether with hypoxia or hypercapnia Status: Acute Assessment and Plan: Acute respiratory failure secondary to altered mental status, weakness from Parkinson's and pulmonary edema Patient was intubated and sedated 08/12 sedation holiday was performed and patient was trialed on PSV. Patient initially did well but eventually became more tachypneic with increased heart rate and blood pressure. On holding sedation patient appears very weak with unable to lift his hands or feet. I spoke to patient's about how he was doing prior to getting admitted. She states that he has been having difficulty breathing for last few weeks. She also felt that he was getting weaker and also had trouble swallowing. 08/13 : Extubated . 08/14: He wore BiPAP overnight and is now switched to a nasal cannula . He appears quite weak and requiring frequent suctioning to clear his respiratory secretions. . I have discussed with his and daughter. Patient's rib pains borderline and may need re-intubation. Will add EzPAP to minimize atelectasis. Continue diuretics. Patient's is okay with re-intubation if needed to give him 1 more opportunity although she does not believe patient would want tracheostomy or PEG tube placement for long-term mechanical ventilation. 08/15: Wore his BiPAP, continues to be weak, on 5 L nasal cannula, diuresed well. Failed his bedside swallow evaluation 08/16: Remains on 5 L nasal cannula, did not wear his BiPAP overnight. Pulled out his NG tube. Continue p.r.n. bronchodilators, will continue gentle diuresis. Modified barium swallow today. Chest x-ray continues to shows persistent left basilar atelectasis and/or airspace disease. Continue EzPAP (2) Parkinson disease: Qualifiers: Dyskinesia presence: unspecified whether dyskinesia Fluctuating manifestations: unspecified whether manifestations fluctuate Qualified Code(s): G20.A1 - Parkinson's disease without dyskinesia, without mention of fluctuations Code(s): G20 - Parkinson's disease Status: Acute Assessment and Plan: Continue levodopa carbidopa by enteral tube Sinemet was increased to 3 pills every 6 hours discontinue Mirapex amantadine is on hold since is cannot be given through the tube (3) Congestive heart failure: Code(s): I50.9 - Heart failure, unspecified Status: Acute Assessment and Plan: Patient has edema on exam and echo shows diastolic dysfunction. ProBNP was 1530 Continue diuresis 03/15/2025: Echocardiogram Summary 1. Complete two-dimensional, color flow and Doppler transthoracic echocardiogram is performed. 2. Left ventricular chamber dimension is normal. 3. Left ventricular systolic function is normal, estimated at 60-65. 4. There is mild concentric increased left ventricular wall thickness. 5. The left ventricular diastolic function is grade I diastolic dysfunction. 6. E/e' 8 is minimally elevated. 7. Left atrial chamber dimension is mildly enlarged. 8. There is mild aortic valve sclerosis. 9. There is trace aortic valve regurgitation. (4) UTI (urinary tract infection): Code(s): N39.0 - Urinary tract infection, site not specified Status: Acute Assessment and Plan: negative urine culture till now Continue antibiotics (5) Agitation: Code(s): R45.1 - Restlessness and agitation Status: Acute Assessment and Plan: appears calm at this time. Now off of sedation (6) Electrolyte abnormality: Code(s): E87.8 - Other disorders of electrolyte and fluid balance, not elsewhere classified Status: Acute Assessment and Plan: potassium in normal range. Monitor. (7) Fever: Code(s): R50.9 - Fever, unspecified Status: Acute Assessment and Plan: Patient was having fever with increased respiratory secretions I suspect patient have pneumonia 08/13: Repeat blood cultures are pending 08/13: sputum culture sent Continue cefepime and vancomycin (08/14) Fevers have resolved (8) Dysphagia: Code(s): R13.10 - Dysphagia, unspecified Status: Acute Assessment and Plan: patient extubated but not strong enough or even bedside swallow evaluation at that time. Discussed with speech therapy. Will re-evaluate tomorrow. Continue tube feeding through NG tube. I discussed this again with patient's that patient may need PEG tube if patient is not improve enough to pass swallow study. 08/15: Appreciate speech evaluation for swallow test, recommended modified barium swallow which has been ordered Plan DVT prophylaxis -Lovenox Stress ulcer prophylaxis -PPI Nutrition -NG tube was pulled by patient, awaiting modified barium swallow. If he passes that he can eat, if he fails then will try and put the NG tube back for feeds as well as his meds Code Status -DNR/DNI Total Critical Care Time - 33 minutes 08/15: Had multiple discussion with the and daughter and updated them with patient's condition and plan of care. I did talk about code status, both in agreement with DNR and DNI. They are aware that PT and OT will evaluate the patient, being possible get speech evaluated the patient and that he failed his swallow test at bedside, modified bedside swallow test is been ordered. I answered all the questions Due to a high probability of clinically significant, life threatening deterioration, the patient required my highest level of preparedness to intervene emergently and I personally spent this critical care time directly and personally managing the patient. This critical care time included obtaining a history; examining the patient; pulse oximetry; ordering and review of studies; arranging urgent treatment with development of a management plan; evaluation of patient's response to treatment; frequent reassessment; and discussions with other providers. It was exclusive of separately billable procedures and treating other patients and teaching time. Please see Assessment and Plan section and the rest of the note for further information on patient assessment and treatment Subjective Date/time seen: 08/16/25 08:19 Interval history: Reason for consult: Acute respiratory failure, pneumonia, congestive heart failure, UTI, restlessness/agitation 08/16/2025: Patient seen and examined in the ICU this morning, is awake, alert, follows simple commands. Is tearful and wants his at his bedside. Denies any shortness of breath, chest pain, abdominal pain, nausea, vomiting at this time. He did get melatonin overnight, slept a few hours, did not wear his BiPAP. Her currently on oxygen, 5 L via nasal cannula. Urine output has been good in response to diuresis. Patient also pulled out his NG overnight and throat in the nurse that he will bite have fingers if she tries to put it back. He did work with PT/OT yesterday Review of Systems Review of Systems: All systems reviewed & are unremarkable except as noted in HPI and below Exam Narrative: General: Pt is alert awake and in no distress HEENT: Pupils equal and reactive, sclera is clear, dry oral mucosa Lungs/Chest: Trachea central Coarse BS B/L, No crackles or wheezing. breath sounds decreased at bases Cardiac: RRR. Normal S1 S2. No murmurs Circulation: Pedal pulses are intact and symmetrical. Abdomen: Decreased bowel sounds. Obese. Soft. NT. ND. NG tube in place Extremities: No clubbing, cyanosis, mild pedal edema present : Brower in place Neurologic: he is awake, alert, follows commands, answers to questions. Moves all 4 extremities Objective Data Vital Signs Vital Signs: Vital Signs - 24 hr 08/15/25 08:20 08/15/25 09:00 08/15/25 10:00 Temperature 99.0 F 99.1 F Pulse Rate 81 76 75 Respiratory Rate 21 H 25 H Blood Pressure 144/45 H 126/48 L Pulse Oximetry 94 93 Oxygen Delivery Oxygen Flow Rate Fraction of Inspired Oxygen 08/15/25 11:00 08/15/25 12:00 08/15/25 12:00 Temperature 99.4 F 99.7 F H Pulse Rate 95 85 89 Respiratory Rate 26 H 27 H 24 H Blood Pressure 139/50 L 161/61 H Pulse Oximetry 95 94 96 Oxygen Delivery Nasal Cannula Oxygen Flow Rate 5 Fraction of Inspired Oxygen 08/15/25 12:00 08/15/25 12:15 08/15/25 14:00 Temperature Pulse Rate 85 88 90 Respiratory Rate Blood Pressure Pulse Oximetry 97 Oxygen Delivery High Flow Nasal Cannula Oxygen Flow Rate 5 Fraction of Inspired Oxygen 08/15/25 14:00 08/15/25 15:00 08/15/25 16:00 Temperature 99.6 F Pulse Rate 89 90 90 Respiratory Rate 27 H 29 H Blood Pressure 164/68 H 159/64 H Pulse Oximetry 94 92 Oxygen Delivery Oxygen Flow Rate Fraction of Inspired Oxygen 08/15/25 16:00 08/15/25 16:00 08/15/25 17:00 Temperature 99.9 F H 100.0 F H Pulse Rate 89 87 88 Respiratory Rate 26 H 23 H 26 H Blood Pressure 146/59 H 149/56 H Pulse Oximetry 93 95 93 Oxygen Delivery Nasal Cannula Oxygen Flow Rate 5 Fraction of Inspired Oxygen 08/15/25 18:00 08/15/25 18:00 08/15/25 19:00 Temperature 99.8 F H Pulse Rate 84 84 86 Respiratory Rate 22 H 28 H Blood Pressure 140/52 L 161/61 H Pulse Oximetry 92 94 Oxygen Delivery Oxygen Flow Rate Fraction of Inspired Oxygen 08/15/25 20:00 08/15/25 20:00 08/15/25 20:00 Temperature 99.7 F H Pulse Rate 83 88 Respiratory Rate 23 H Blood Pressure 166/61 H Pulse Oximetry 97 95 Oxygen Delivery Nasal Cannula Oxygen Flow Rate 5 Fraction of Inspired Oxygen 08/15/25 20:08 08/15/25 21:00 08/15/25 21:40 Temperature 99.6 F Pulse Rate 86 73 76 Respiratory Rate 20 Blood Pressure 138/51 L Pulse Oximetry 95 98 Oxygen Delivery High Flow Nasal Cannula Oxygen Flow Rate Fraction of Inspired Oxygen 08/15/25 21:40 08/15/25 22:00 08/15/25 22:00 Temperature 99.4 F Pulse Rate 76 78 78 Respiratory Rate 24 H 26 H Blood Pressure 148/53 H Pulse Oximetry 98 95 Oxygen Delivery High Flow Nasal Cannula Oxygen Flow Rate 5 Fraction of Inspired Oxygen 08/15/25 22:00 08/15/25 22:00 08/15/25 22:47 Temperature Pulse Rate 78 74 75 Respiratory Rate 24 H 25 H 22 H Blood Pressure Pulse Oximetry 94 97 97 Oxygen Delivery BiPAP BiPAP BiPAP Oxygen Flow Rate Fraction of Inspired Oxygen 35 08/15/25 23:00 08/15/25 23:00 08/15/25 23:00 Temperature 99.4 F Pulse Rate 80 76 76 Respiratory Rate 27 H 24 H Blood Pressure 146/52 H Pulse Oximetry 95 94 94 Oxygen Delivery High Flow Nasal Cannula High Flow Nasal Cannula Oxygen Flow Rate 5 Fraction of Inspired Oxygen 08/16/25 00:00 08/16/25 00:00 08/16/25 00:00 Temperature 99.3 F Pulse Rate 79 78 Respiratory Rate 21 H Blood Pressure 135/52 L Pulse Oximetry 96 96 Oxygen Delivery Nasal Cannula Oxygen Flow Rate 5 Fraction of Inspired Oxygen 08/16/25 01:00 08/16/25 02:00 08/16/25 02:00 Temperature 99.3 F 99.4 F Pulse Rate 83 81 81 Respiratory Rate 26 H 21 H Blood Pressure 144/53 H 140/53 L Pulse Oximetry 93 96 Oxygen Delivery Oxygen Flow Rate Fraction of Inspired Oxygen 08/16/25 03:00 08/16/25 04:00 08/16/25 04:00 Temperature 99.5 F Pulse Rate 81 83 Respiratory Rate 24 H Blood Pressure 138/54 L Pulse Oximetry 96 94 Oxygen Delivery Nasal Cannula Oxygen Flow Rate 5 Fraction of Inspired Oxygen 08/16/25 04:00 08/16/25 05:00 08/16/25 06:00 Temperature 99.6 F 99.7 F H 99.5 F Pulse Rate 84 82 89 Respiratory Rate 31 H 21 H 27 H Blood Pressure 155/64 H 153/56 H 139/50 L Pulse Oximetry 95 92 96 Oxygen Delivery Oxygen Flow Rate Fraction of Inspired Oxygen 08/16/25 06:00 08/16/25 07:00 Temperature 99.9 F H Pulse Rate 89 89 Respiratory Rate 23 H Blood Pressure 141/55 H Pulse Oximetry 95 Oxygen Delivery Oxygen Flow Rate Fraction of Inspired Oxygen Intake/Output Intake/Output: Intake & Output 08/13/25 08/14/25 08/15/25 08/16/25 23:59 23:59 23:59 23:59 Intake Total 2447.5 1371 3057.7 903 Output Total 2525 2550 2300 800 Balance -77.5 -1179 757.7 103 Meds/Results Medications: Active Medications Generic Name Dose Route Start Last Admin Trade Name Freq PRN Reason Stop Dose Admin Acetaminophen 650 mg 08/09/25 22:21 08/14/25 12:07 Acetaminophen Elixir 325 Mg/10.15 Ml Udc FEED TUBE 650 mg Q4H PRN Administration Fever Albuterol 2 puff 08/08/25 09:01 Albuterol Sulfate (*Sp) Aerosol 1 Puff INHALATION Q4HRT PRN Shortness Of Breath Or Wheezing Amantadine HCl 100 mg 08/10/25 09:00 08/10/25 10:37 Amantadine Hcl 100 Mg Capsule FEED TUBE Not Given On Hold: 08/10/25 12:13 TID DALE Amlodipine Besylate 10 mg 08/14/25 09:00 08/15/25 08:20 Amlodipine Besylate 10 Mg Tablet FEED TUBE 10 mg DAILY DALE Administration Bisacodyl 10 mg 08/11/25 07:45 08/13/25 08:00 Bisacodyl 10 Mg Suppository RECTAL 10 mg QAM PRN Administration Constipation Carbidopa/Levodopa 3 tablet 08/15/25 21:00 08/16/25 05:10 Carbidopa/Levodopa 25/100 Mg Tablet PO 3 tablet 00,03,06,21 DALE Administration Dextrose 12.5 gm 08/09/25 18:34 Dextrose 50% 25 Gm/50 Ml Syringe IV PUSH PRN PRN Hypoglycemia Protocol Enoxaparin Sodium 40 mg 08/10/25 09:00 08/15/25 08:20 Enoxaparin 40 Mg/0.4 Ml Syringe SUB-Q 40 mg DAILY DALE Administration Fluticasone Propionate 2 spray 08/08/25 09:01 Fluticasone Propionate 0.05% Na Spr 16 Gm Btl (*Bkc) NASAL PRN PRN allergies Glucagon 1 mg 08/09/25 18:34 Glucagon For Inj 1 Mg Vial IM PRN PRN Hypoglycemia Protocol Glucose 15 gm 08/09/25 18:34 Glucose Oral Gel 15 Gm Of Glucse In 37.5 Gm Tube PO PRN PRN Hypoglycemia Protocol Hydralazine HCl 20 mg 08/12/25 12:27 08/14/25 04:10 Hydralazine Hcl 20 Mg/Ml Vial IV PUSH 20 mg Q4H PRN Administration SBP more than 160 Dextrose 1,000 mls @ 100 mls/hr 08/09/25 18:34 Dextrose 5% 1,000 Ml IVPB PRN PRN Hypoglycemia Protocol Cefepime HCl 2 gm/ Sodium 50 mls @ 100 mls/hr 08/14/25 21:00 08/15/25 20:38 Chloride IVPB Infused Q12H DALE Infusion Vancomycin HCl 1,500 mg in 500 mls @ 250 mls/hr 08/14/25 22:00 08/16/25 00:08 Vancomycin 1,500 Mg/Ns 500 Ml IVPB Infused Q12H DALE Infusion Insulin Aspart 2 - 5 units 08/10/25 12:00 08/16/25 05:10 Insulin Aspart (*Bkc) 100 Units/Ml SUB-Q Not Given Q6HR DALE Protocol Labetalol HCl 20 mg 08/14/25 07:45 Labetalol Hcl Inj 100 Mg/20 Ml Vial IV PUSH Q4H PRN SBP > 160 and HR> 60 -1st choice Metoprolol Tartrate 25 mg 08/14/25 09:00 08/15/25 20:08 Metoprolol Tartrate 25 Mg Tablet FEED TUBE 25 mg Q12HR DALE Administration Morphine Sulfate 4 mg 08/12/25 14:33 08/12/25 14:46 Morphine Sulfate (*Crx) 4 Mg/Ml Inj IV PUSH 4 mg Q1H PRN Administration Pain while on vent Multi-Ingred Cream/Lotion/Oil/Oint 1 applic 08/09/25 21:00 08/15/25 19:54 Mineral Oil/White Petrolatum Ointment EACH EYE Not Given Q12HR DALE Pantoprazole Sodium 40 mg 08/10/25 09:00 08/15/25 08:19 Pantoprazole Sodium Iv 40 Mg Vial IV PUSH 40 mg QAM DALE Administration Polyethylene Glycol 17 gm 08/15/25 07:11 Polyethylene Glycol 3350 17 Gm Powd.Pack FEED TUBE QAM PRN Constipation Pramipexole Dihydrochloride 1 mg 08/10/25 09:00 08/14/25 08:24 Pramipexole 1 Mg Tablet FEED TUBE 1 mg On Hold: 08/14/25 10:56 TID DALE Administration Senna/Docusate Sodium 2 tab 08/10/25 09:00 08/15/25 17:57 Senna/Docusate Sodium Tablet FEED TUBE 2 tab BID DALE Administration Trazodone HCl 50 mg 08/14/25 21:00 08/15/25 20:08 Trazodone Hcl 50 Mg Tablet FEED TUBE 50 mg QHS DALE Administration Radiology Results: ITS Impressions Knee X-Ray 08/07/25 18:51 IMPRESSION: 1. No acute bony lesions. 2 osteopenic bones. Severe arthritis predominantly of patellofemoral joint. Please correlate with DEXA densitometry. 3 if symptoms are localized and persistent, MRI is indicated. Venous Doppler Study 08/07/25 20:49 IMPRESSION: 1. No deep venous thrombosis in the right lower extremity veins.. Ankle X-Ray 08/09/25 14:44 Impression: No acute fracture or malalignment. Wrist X-Ray 08/09/25 14:44 Impression: No acute fracture or malalignment. Head CT 08/09/25 20:23 IMPRESSION: 1. No acute findings in this limited noncontrast CT head. Chest/Abdomen/Pelvis CT 08/09/25 20:29 IMPRESSION: 1. Limited noncontrast examination is not optimal to evaluate solid viscera, vascular structures and neoplasms. 2. No acute pulmonary findings. Minimal platelike atelectasis of lung bases. 3. Tip of the endotracheal tube is low in position, just above the allie. Please reposition this ET tube more proximally by approximately 2.5 to 3 cm. 4. No acute findings in the abdomen and pelvis. Other findings as mentioned above. Abdomen X-Ray 08/13/25 16:09 Impression: 1. No acute abnormality. Chest X-Ray 08/14/25 07:12 IMPRESSION: 1. No significant change. 2. Persistent left basilar atelectasis and/or airspace disease. Labs Labs: Laboratory Results - last 24 hr 08/15/25 08/15/25 08/15/25 11:02 17:59 23:28 WBC RBC Hgb Hct MCV MCH MCHC RDW Plt Count MPV Immature Gran % (Auto) Neut % (Auto) Lymph % (Auto) [place] % (Auto) Eos % (Auto) Baso % (Auto) Lymph # (Auto) [place] # (Auto) Eos # (Auto) Baso # (Auto) Abs Immat Gran (auto) Absolute Neuts (auto) Absolute Nucleated RBC Nucleated RBC % Sodium Potassium Chloride Carbon Dioxide Anion Gap BUN Creatinine Estim Creat Clear Calc Estimated GFR Glucose POC Capillary Glucose 152 H 144 H 153 H Calcium Phosphorus Magnesium Total Bilirubin AST ALT Alkaline Phosphatase Total Protein Albumin 08/16/25 04:14 WBC 11.3 H RBC 4.61 Hgb 13.1 L Hct 42.9 MCV 93.1 MCH 28.4 MCHC 30.5 L RDW 13.5 Plt Count 300 MPV 10.2 Immature Gran % (Auto) 1.3 H Neut % (Auto) 72.5 Lymph % (Auto) 11.5 L [place] % (Auto) 9.1 H Eos % (Auto) 5.2 H Baso % (Auto) 0.4 Lymph # (Auto) 1.30 [place] # (Auto) 1.0 H Eos # (Auto) 0.6 H Baso # (Auto) 0.1 Abs Immat Gran (auto) 0.15 H Absolute Neuts (auto) 8.2 H Absolute Nucleated RBC 0.000 Nucleated RBC % 0.0 Sodium 144 Potassium 4.2 Chloride 105 Carbon Dioxide 34 H Anion Gap 5 BUN 57 H Creatinine 0.83 Estim Creat Clear Calc 85 Estimated GFR > 60 Glucose 166 H POC Capillary Glucose Calcium 8.9 Phosphorus 3.6 Magnesium 2.8 H Total Bilirubin 0.8 AST 67 H ALT 10 Alkaline Phosphatase 66 Total Protein 6.9 Albumin 3.5 Quality VTE Prophylaxis VTE prophylaxis: pharmacologic ordered
[2025-08-16] MEDS: CEFEPIME 2 GM in SODIUM CHLORIDE 0.9% IV 50 ML 100 ML IVPB ×2 (09:21→20:43)
[2025-08-16] MEDS: BUMETANIDE INJ 1 MG/4 ML VIAL IV PUSH (09:21)
[2025-08-16] MEDS: ENOXAPARIN 40 MG/0.4 ML SYRINGE SUB-Q (09:21)
[2025-08-16] MEDS: PANTOPRAZOLE SODIUM IV 40 MG VIAL IV PUSH (09:21)
[2025-08-16] MEDS: VANCOMYCIN 1,750 MG/NS 500 ML 1,750 MG/500 ML BAG 250 MG IVPB ×2 (11:52→23:20)
--- NOTE | 2025-08-16 12:12 | PCFNICU ---
ICU Rounding Note: Pt current nutrition is NPO. Nutrition recommendation:Jevity 1.5 at 20ml/hr goal rate at 60 ml/hr Last recorded weight is 122 kg.stable Bowel Motility: Last reported BM 08/14 Labs Reviewed: BUN 57, Glu 166, Mg 2.8, Hgb 13.1 Meds Noted: Cefepime,Vancomycin, Miralax, Senna Skin: WNL Additional Notes: Patient NPO today for MBS. Speech Therapy is recommending non oral feedings. Spoke with nursing and Cath Lab Tech plans to place NGT. Tube feeding recommendations: Jevity 1.5 at 20 ml/hr advance by 10 ml q 4 hours to goal rate of 60 ml/hr. Total Nutrition: 1980 kcal/84 gm protein/1003 ml water. Meeting 100% kcal needs at 25 kcal/kg and 87% protein needs at .8 gm/kg. Flush 30 ml q 4 hours. Will continue to monitor for any further nutritional recommendations. Following daily in ICU rounds. Will monitor weight, labs, skin, diet orders, meds every Thursday and Thursday.
--- NOTE | 2025-08-16 15:47 | PC.NURSE ---
This patient, Ori Bernardo, was received from [ICU 2] on 08/16/25 at 1547. Patient/family oriented to unit policies and routines. Report from Edmundo BURGER.
--- NOTE | 2025-08-16 16:07 | PC.NURSE ---
This patient, Ori Bernardo, was transferred to [facility] on 08/16/25 at 1546. Personal belongings sent with patient. Report given to JENNYFER Dunn. Appropriate documentation sent with patient.
[2025-08-16] MEDS: ACETAMINOPHEN ELIXIR 325 MG/10.15 ML UDC 650 MG FEED TUBE (16:09)
[2025-08-16] MEDS: SENNA/DOCUSATE SODIUM TABLET 2 TAB FEED TUBE (17:08)
[2025-08-16] MEDS: METOPROLOL TARTRATE 25 MG TABLET FEED TUBE (20:41)
[2025-08-17] VITALS (7 sets, daily range): BP systolic 138–172; BP diastolic 47–87; PULSE 82–101; RESP 18–22; TEMP 36.9–37.3; O2SAT 91–97; BMI 11.0
[2025-08-17] MEDS: CARBIDOPA/LEVODOPA 25/100 MG TABLET 3 TABLET PO ×4 (02:47→23:52)
[2025-08-17 06:42] LABS: Hematocrit 44.4 % (42.0-52.0); Hemoglobin 13.4 g/dL (14.0-18.0); Immature Granulocyte Percent A 1.8 % (0-0.5); Lymphocytes Absolute Auto 1.24 K/mm3 (0.9-3.2); Mean Corpuscular HGB Conc 30.2 g/dl (32-36); Mean Corpuscular Hemoglobin 28.4 pg (26-34); Mean Corpuscular Volume 94.1 fl (80-100); Nucleated Red Blood Cells Absolute Auto 0.000 K/mm3 (0.0-0.012); Nucleated Red Blood Cells Perc 0.0 % (0.0-0.2); Platelet Count Result 323 k/mm3 (150-375); Red Blood Count 4.72 M/mm3 (4.6-6.20); White Blood Count 12.0 K/mm3 (4.5-10.0)
[2025-08-17 07:05] LABS: Alanine Aminotransferase 11 U/L (6-50); Albumin Level 3.7 g/dL (3.5-5.1); Alkaline Phosphatase 69 U/L (38-126); Anion Gap 6 mmol/L (4-12); Aspartate Amino Transferase 60 U/L (17-59); Bilirubin,Total 1.0 mg/dL (0.2-1.3); Blood Urea Nitrogen 52 mg/dL (9-20); Calcium 9.1 mg/dL (8.4-10.2); Carbon Dioxide 32 mmol/L (22-30); Chloride 110 mmol/L (98-107); Estimated CRCL calculation 76 ml/min; Estimated Glomerular Filt Rate > 60; Glucose 140 mg/dL (65-110); Magnesium 2.7 mg/dL (1.6-2.3); Potassium 4.0 mmol/L (3.4-5.0); Sodium 148 mmol/L (137-145); Total Protein 7.1 g/dL (6.3-8.2)
[2025-08-17] MEDS: SENNA/DOCUSATE SODIUM TABLET 2 TAB FEED TUBE ×2 (10:24→16:42)
[2025-08-17] MEDS: METOPROLOL TARTRATE 25 MG TABLET FEED TUBE ×2 (10:25→20:32)
[2025-08-17] MEDS: PANTOPRAZOLE SODIUM IV 40 MG VIAL IV PUSH (10:25)
[2025-08-17] MEDS: CEFEPIME 2 GM in SODIUM CHLORIDE 0.9% IV 50 ML 100 ML IVPB (10:25)
[2025-08-17] MEDS: ENOXAPARIN 40 MG/0.4 ML SYRINGE SUB-Q (10:35)
[2025-08-17] MEDS: VANCOMYCIN 1,750 MG/NS 500 ML 1,750 MG/500 ML BAG 250 MG IVPB (10:55)
--- NOTE | 2025-08-17 14:05 | P.PNIM_ITS ---
Assessment and Plan Assessment and Plan (1) Acute respiratory failure: Code(s): J96.00 - Acute respiratory failure, unspecified whether with hypoxia or hypercapnia Status: Acute Assessment and Plan: Acute respiratory failure secondary to altered mental status, weakness from Parkinson's and pulmonary edema. Patient was intubated on 08/09 and sedated. Patient was stabilized. He was weaned as tolerated and eventually extubated 08/13. Patient transitioned to BiPAP then now uses only at night. Failed his bedside swallow evaluation so made NPO. NGT feeding started. MBS recommended non-oral feedings. Was on 7L nasal cannula intially but weaned to 2L now. Continue p.r.n. bronchodilators. Continue EzPAP. Encouraged compliance with BiPAP (2) Fever: Code(s): R50.9 - Fever, unspecified Status: Acute Assessment and Plan: Patient was having fever with increased respiratory secretions concerning for pneumonia, possibly aspiration BCx 08/07, 08/08 and 08/09 negative UCx 08/10 negative BCx 08/13: NGTD Sputum culture 08/13 growing heavy growth of corynebacterium striatum of unknown significance Started on cefepime and vancomycin (08/14) Fevers have resolved Continue abx to complete a course. (3) Congestive heart failure: Code(s): I50.9 - Heart failure, unspecified Status: Acute Assessment and Plan: Patient has edema on exam and echo shows diastolic dysfunction. ProBNP was 1530. CXR showing mild CHF on admission Echo (03/15/25) showing EF 60-65%, grade I diastolic dysfunction Treated with intermittent IV Lasix. Last dose of diuretic 08/15. Not on diuretic therapy at home. Follow (4) Parkinson disease: Qualifiers: Dyskinesia presence: unspecified whether dyskinesia Fluctuating manifestations: unspecified whether manifestations fluctuate Qualified Code(s): G20.A1 - Parkinson's disease without dyskinesia, without mention of fluctuations Code(s): G20 - Parkinson's disease Status: Acute Assessment and Plan: Patient with Parkinson Disease on Sinemet at home. Will continue levodopa carbidopa by enteral tube Sinemet was increased to 3 pills every 6 hours and Mirapex discontinued Amantadine is on hold since is cannot be given through the tube PT/OT ordered. Speech following for dysphaia (5) Agitation: Code(s): R45.1 - Restlessness and agitation Status: Acute Assessment and Plan: Patient remaining calm. He is off of sedation Follow (6) Electrolyte abnormality: Code(s): E87.8 - Other disorders of electrolyte and fluid balance, not elsewhere classified Status: Acute Assessment and Plan: Potassium, Mg in normal range. Sodium higher so will advance free water Monitor. (7) Dysphagia: Code(s): R13.10 - Dysphagia, unspecified Status: Acute Assessment and Plan: After extubation, patient failed his bedside swallow evaluation so made NPO. NGT feeding started. [facility] [place] 08/16 recommended non-oral feedings. Continue tube feedings. (8) UTI (urinary tract infection): Code(s): N39.0 - Urinary tract infection, site not specified Status: Acute Assessment and Plan: UCx negative. UTI ruled out Plan DVT prophylaxis -Lovenox Code Status -DNR/DNI Subjective Date/time seen: 08/17/25 14:05 Interval history: 75yo male with KYLE, hx of PE, asthma and Parkinson here for CP and intermittent SOB. Patient also reports he did have a ground level fall prior to admission Assuming care. Chart reviewed. Patient is awake but sonmolent with garbled speech. He did not wear his bipap last night. Patient currently NPO Review of Systems Review of Systems: ROS unobtainable: Yes unobtainable due to mental status Exam Narrative: Tm 100.3 99.1 172/60 101 22 94% 2L Gen - NARD sitting up in recliner chair HEENT - NGT secured. Chest - coarse BS diffusely. CV - RRR S1/S2 Abd - Soft, ND, +BS Ext - No pedal edema. 2+ DP bilaterally Neuro - arouses. follows commands. mumbled speech. 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 Psych - sedate Skin - Warm and dry Objective Data Vital Signs Vital Signs: Vital Signs - 24 hr 08/16/25 16:09 08/16/25 17:05 08/16/25 20:37 Temperature 100.1 F H 99.3 F Pulse Rate Respiratory Rate Blood Pressure Pulse Oximetry 93 Oxygen Delivery Nasal Cannula Oxygen Flow Rate 2 Fraction of Inspired Oxygen 08/16/25 22:55 08/17/25 06:39 08/17/25 08:00 Temperature 97.9 F 98.9 F 99.1 F Pulse Rate 86 95 101 H Respiratory Rate 20 20 22 H Blood Pressure 148/61 H 138/87 172/60 H Pulse Oximetry 94 95 94 Oxygen Delivery Oxygen Flow Rate Fraction of Inspired Oxygen 08/17/25 08:15 Temperature Pulse Rate 101 H Respiratory Rate 22 H Blood Pressure Pulse Oximetry 94 Oxygen Delivery Nasal Cannula Oxygen Flow Rate 2 Fraction of Inspired Oxygen 35 Intake/Output Intake/Output: Intake & Output 08/14/25 08/15/25 08/16/25 08/17/25 23:59 23:59 23:59 23:59 Intake Total 1371 3057.7 1550 500 Output Total 2550 2300 2075 850 Balance -1179 757.7 -525 -350 Meds/Results Medications: Active Medications Generic Name Dose Route Start Last Admin Trade Name Freq PRN Reason Stop Dose Admin Acetaminophen 650 mg 08/09/25 22:21 08/16/25 16:09 Acetaminophen Elixir 325 Mg/10.15 Ml Udc FEED TUBE 650 mg Q4H PRN Administration Fever Albuterol 2 puff 08/08/25 09:01 Albuterol Sulfate (*Sp) Aerosol 1 Puff INHALATION Q4HRT PRN Shortness Of Breath Or Wheezing Amantadine HCl 100 mg 08/10/25 09:00 08/10/25 10:37 Amantadine Hcl 100 Mg Capsule FEED TUBE Not Given On Hold: 08/10/25 12:13 TID DALE Amlodipine Besylate 10 mg 08/14/25 09:00 08/17/25 10:25 Amlodipine Besylate 10 Mg Tablet FEED TUBE 10 mg DAILY DALE Administration Bisacodyl 10 mg 08/11/25 07:45 08/13/25 08:00 Bisacodyl 10 Mg Suppository RECTAL 10 mg QAM PRN Administration Constipation Carbidopa/Levodopa 3 tablet 08/15/25 21:00 08/17/25 05:16 Carbidopa/Levodopa 25/100 Mg Tablet PO 3 tablet 00,03,06,21 DALE Administration Dextrose 12.5 gm 08/09/25 18:34 Dextrose 50% 25 Gm/50 Ml Syringe IV PUSH PRN PRN Hypoglycemia Protocol Enoxaparin Sodium 40 mg 08/10/25 09:00 08/17/25 10:35 Enoxaparin 40 Mg/0.4 Ml Syringe SUB-Q 40 mg DAILY DALE Administration Fluticasone Propionate 2 spray 08/08/25 09:01 Fluticasone Propionate 0.05% Na Spr 16 Gm Btl (*Bkc) NASAL PRN PRN allergies Glucagon 1 mg 08/09/25 18:34 Glucagon For Inj 1 Mg Vial IM PRN PRN Hypoglycemia Protocol Glucose 15 gm 08/09/25 18:34 Glucose Oral Gel 15 Gm Of Glucse In 37.5 Gm Tube PO PRN PRN Hypoglycemia Protocol Hydralazine HCl 20 mg 08/12/25 12:27 08/14/25 04:10 Hydralazine Hcl 20 Mg/Ml Vial IV PUSH 20 mg Q4H PRN Administration SBP more than 160 Dextrose 1,000 mls @ 100 mls/hr 08/09/25 18:34 Dextrose 5% 1,000 Ml IVPB PRN PRN Hypoglycemia Protocol Cefepime HCl 2 gm/ Sodium 50 mls @ 100 mls/hr 08/14/25 21:00 08/17/25 10:25 Chloride IVPB 100 mls/hr Q12H DALE Administration Vancomycin HCl 1,750 mg in 500 mls @ 250 mls/hr 08/16/25 10:00 08/17/25 10:55 Vancomycin 1,750 Mg/Ns 500 Ml IVPB 250 mls/hr Q12H DALE Administration Insulin Aspart 2 - 5 units 08/10/25 12:00 08/17/25 12:35 Insulin Aspart (*Bkc) 100 Units/Ml SUB-Q Not Given Q6HR DALE Protocol Labetalol HCl 20 mg 08/14/25 07:45 Labetalol Hcl Inj 100 Mg/20 Ml Vial IV PUSH Q4H PRN SBP > 160 and HR> 60 -1st choice Metoprolol Tartrate 25 mg 08/14/25 09:00 08/17/25 10:25 Metoprolol Tartrate 25 Mg Tablet FEED TUBE 25 mg Q12HR DALE Administration Pantoprazole Sodium 40 mg 08/10/25 09:00 08/17/25 10:25 Pantoprazole Sodium Iv 40 Mg Vial IV PUSH 40 mg QAM DALE Administration Polyethylene Glycol 17 gm 08/15/25 07:11 Polyethylene Glycol 3350 17 Gm Powd.Pack FEED TUBE QAM PRN Constipation Pramipexole Dihydrochloride 1 mg 08/10/25 09:00 08/14/25 08:24 Pramipexole 1 Mg Tablet FEED TUBE 1 mg On Hold: 08/14/25 10:56 TID DALE Administration Senna/Docusate Sodium 2 tab 08/10/25 09:00 08/17/25 10:24 Senna/Docusate Sodium Tablet FEED TUBE 2 tab BID DALE Administration Trazodone HCl 50 mg 08/14/25 21:00 08/16/25 20:41 Trazodone Hcl 50 Mg Tablet FEED TUBE 50 mg QHS DALE Administration Radiology Results: ITS Impressions Knee X-Ray 08/07/25 18:51 IMPRESSION: 1. No acute bony lesions. 2 osteopenic bones. Severe arthritis predominantly of patellofemoral joint. Please correlate with DEXA densitometry. 3 if symptoms are localized and persistent, MRI is indicated. Venous Doppler Study 08/07/25 20:49 IMPRESSION: 1. No deep venous thrombosis in the right lower extremity veins.. Ankle X-Ray 08/09/25 14:44 Impression: No acute fracture or malalignment. Wrist X-Ray 08/09/25 14:44 Impression: No acute fracture or malalignment. Head CT 08/09/25 20:23 IMPRESSION: 1. No acute findings in this limited noncontrast CT head. Chest/Abdomen/Pelvis CT 08/09/25 20:29 IMPRESSION: 1. Limited noncontrast examination is not optimal to evaluate solid viscera, vascular structures and neoplasms. 2. No acute pulmonary findings. Minimal platelike atelectasis of lung bases. 3. Tip of the endotracheal tube is low in position, just above the allie. Please reposition this ET tube more proximally by approximately 2.5 to 3 cm. 4. No acute findings in the abdomen and pelvis. Other findings as mentioned above. Chest X-Ray 08/14/25 07:12 IMPRESSION: 1. No significant change. 2. Persistent left basilar atelectasis and/or airspace disease. Modified Barium Swallow 08/16/25 11:03 IMPRESSION: Aspiration was observed. See speech therapist's note for complete evaluation. Labs Labs: Laboratory Results - last 24 hr 08/16/25 08/17/25 08/17/25 17:17 00:18 06:24 WBC 12.0 H RBC 4.72 Hgb 13.4 L Hct 44.4 MCV 94.1 MCH 28.4 MCHC 30.2 L RDW 13.2 Plt Count 323 MPV 10.3 Immature Gran % (Auto) 1.8 H Neut % (Auto) 74.3 H Lymph % (Auto) 10.4 L [place] % (Auto) 10.3 H Eos % (Auto) 2.9 Baso % (Auto) 0.3 Lymph # (Auto) 1.24 [place] # (Auto) 1.2 H Eos # (Auto) 0.4 H Baso # (Auto) 0.0 Abs Immat Gran (auto) 0.22 H Absolute Neuts (auto) 8.9 H Absolute Nucleated RBC 0.000 Nucleated RBC % 0.0 Sodium 148 H Potassium 4.0 Chloride 110 H Carbon Dioxide 32 H Anion Gap 6 BUN 52 H Creatinine 0.91 Estim Creat Clear Calc 76 Estimated GFR > 60 Glucose 140 H POC Capillary Glucose 143 H 143 H Calcium 9.1 Phosphorus 3.4 Magnesium 2.7 H Total Bilirubin 1.0 AST 60 H ALT 11 Alkaline Phosphatase 69 Total Protein 7.1 Albumin 3.7 08/17/25 08/17/25 06:43 11:21 WBC RBC Hgb Hct MCV MCH MCHC RDW Plt Count MPV Immature Gran % (Auto) Neut % (Auto) Lymph % (Auto) [place] % (Auto) Eos % (Auto) Baso % (Auto) Lymph # (Auto) [place] # (Auto) Eos # (Auto) Baso # (Auto) Abs Immat Gran (auto) Absolute Neuts (auto) Absolute Nucleated RBC Nucleated RBC % Sodium Potassium Chloride Carbon Dioxide Anion Gap BUN Creatinine Estim Creat Clear Calc Estimated GFR Glucose POC Capillary Glucose 141 H 145 H Calcium Phosphorus Magnesium Total Bilirubin AST ALT Alkaline Phosphatase Total Protein Albumin
[2025-08-17] MEDS: PIPERACILLIN/TAZOBACTAM SOD 4.5 GM in SODIUM CHLORIDE 0.9% IV 100 ML 200 ML IVPB ×2 (16:42→20:38)
[2025-08-18] VITALS (7 sets, daily range): BP systolic 143–162; BP diastolic 40–59; PULSE 63–92; RESP 17–86; TEMP 35.6–36.6; O2SAT 20–99
[2025-08-18] MEDS: CARBIDOPA/LEVODOPA 25/100 MG TABLET 3 TABLET PO ×3 (02:50→21:58)
[2025-08-18] MEDS: PIPERACILLIN/TAZOBACTAM SOD 4.5 GM in SODIUM CHLORIDE 0.9% IV 100 ML 200 ML IVPB ×4 (02:52→21:59)
[2025-08-18 06:18] LABS: Hematocrit 42.4 % (42.0-52.0); Hemoglobin 12.5 g/dL (14.0-18.0); Mean Corpuscular HGB Conc 29.5 g/dl (32-36); Mean Corpuscular Hemoglobin 28.0 pg (26-34); Mean Corpuscular Volume 95.1 fl (80-100); Platelet Count Result 306 k/mm3 (150-375); Red Blood Count 4.46 M/mm3 (4.6-6.20); White Blood Count 16.5 K/mm3 (4.5-10.0)
[2025-08-18 06:40] LABS: Alanine Aminotransferase 12 U/L (6-50); Albumin Level 3.5 g/dL (3.5-5.1); Alkaline Phosphatase 60 U/L (38-126); Anion Gap 8 mmol/L (4-12); Aspartate Amino Transferase 60 U/L (17-59); Bilirubin,Total 0.9 mg/dL (0.2-1.3); Blood Urea Nitrogen 47 mg/dL (9-20); Calcium 9.0 mg/dL (8.4-10.2); Carbon Dioxide 32 mmol/L (22-30); Chloride 111 mmol/L (98-107); Estimated CRCL calculation 68 ml/min; Estimated Glomerular Filt Rate > 60; Glucose 173 mg/dL (65-110); Magnesium 2.7 mg/dL (1.6-2.3); Potassium 4.1 mmol/L (3.4-5.0); Sodium 151 mmol/L (137-145); Total Protein 6.9 g/dL (6.3-8.2)
[2025-08-18 08:09] LABS: Creatine Kinase 39 U/L (55-170)
[2025-08-18] MEDS: ENOXAPARIN 40 MG/0.4 ML SYRINGE SUB-Q (08:45)
[2025-08-18] MEDS: SENNA/DOCUSATE SODIUM TABLET 2 TAB FEED TUBE (08:45)
[2025-08-18] MEDS: METOPROLOL TARTRATE 25 MG TABLET FEED TUBE ×2 (08:45→21:58)
[2025-08-18] MEDS: PANTOPRAZOLE SODIUM IV 40 MG VIAL IV PUSH (08:45)
[2025-08-18 10:31] LABS: MRSA (PCR) NOT DETECTED (NOT DETECTE)
[2025-08-18] MEDS: ACETAMINOPHEN ELIXIR 325 MG/10.15 ML UDC 650 MG FEED TUBE ×2 (11:42→22:33)
--- NOTE | 2025-08-18 12:38 | PCNFU ---
Nutrition Follow-Up Complete: Suboptimal Energy Intake as related to Mechanical vent as evidenced by NPO. Meet estimated nutritional needs - Goal is being met with tube feeds. Continue same goal Goal: Pt current nutrition is Jevity 1.5 @ goal rate 60 ml/h with flushes 125 q 4 h. Nutrition recommendation: Due to labs, recommend either increasing flushes to 150 ml q 5 hours for total water 1903 ml/day OR changing tube feeding formula to Glucerna 1.2 @ 75 ml/h with flushes 100 ml q 4 hours. Last recorded weight is 116.8 kg. Bowel Motility: +1 BM 08/17 Labs Reviewed: Na 151, BUN 47, Glu 173, Mag 2.7 Meds Noted: Senna, miralax Skin: No skin issues Additional Notes: Current tube feeding orders: Jevity 1.5 @ 60 ml/h with flushes 125 q 4 hours provides 1980 kcal (17 kcal/kg), 84 g protein (0.7 g protein/kg), 1753 ml total free water (flushes included) (15 ml/kg). Could change to Glucerna 1.2 @ goal rate 75 ml/h with flushes 100 ml q 4 hours to provide 1980 kcal, 99 g protein, 1928 ml total free water to meet EER @ 17 kcal/kg, 0.8 g protein/kg, 17 ml/kg. Pt may need a PEG tube placement if fails repeated MBS. Will monitor weight, labs, skin, diet orders, meds every Thursday and Thursday.
--- NOTE | 2025-08-18 15:03 | PM.IMPN2 ---
Assessment and Plan Assessment and Plan (1) Acute respiratory failure: Code(s): J96.00 - Acute respiratory failure, unspecified whether with hypoxia or hypercapnia Status: Acute Assessment and Plan: Acute respiratory failure secondary to altered mental status, weakness from Parkinson's and pulmonary edema. Patient was intubated on 08/09 and sedated. Patient was stabilized. He was weaned as tolerated and eventually extubated 08/13. Patient transitioned to BiPAP then now uses only at night. Failed his bedside swallow evaluation so made NPO. NGT feeding started. MBS recommended non-oral feedings. Was on 7L nasal cannula intially but weaned to 2L Continue p.r.n. bronchodilators. Continue EzPAP. Encouraged compliance with BiPAP (2) Fever: Code(s): R50.9 - Fever, unspecified Status: Acute Assessment and Plan: Patient was having fever with increased respiratory secretions concerning for pneumonia, possibly aspiration BCx 08/07, 08/08 and 08/09 negative UCx 08/10 negative BCx 08/13: NGTD Sputum culture 08/13 growing heavy growth of corynebacterium striatum of unknown significance Started on cefepime and vancomycin (08/14) Fevers have resolved but WBC unchanged in the 11-13K range. Changed to Zosyn monotherapy on 08/18. MRSA nasal swab negative. WBC higher but hold off on changing back to meropenem. Continue abx to complete a course. (3) Congestive heart failure: Code(s): I50.9 - Heart failure, unspecified Status: Acute Assessment and Plan: Patient has edema on exam and echo shows diastolic dysfunction. ProBNP was 1530. CXR showing mild CHF on admission Echo (03/15/25) showing EF 60-65%, grade I diastolic dysfunction Treated with intermittent IV Lasix. Last dose of diuretic 08/15. Not on diuretic therapy at home. Follow (4) Parkinson disease: Qualifiers: Dyskinesia presence: unspecified whether dyskinesia Fluctuating manifestations: unspecified whether manifestations fluctuate Qualified Code(s): G20.A1 - Parkinson's disease without dyskinesia, without mention of fluctuations Code(s): G20 - Parkinson's disease Status: Acute Assessment and Plan: Patient with Parkinson Disease on Sinemet at home. Continue levodopa carbidopa by enteral tube Sinemet was increased to 3 pills every 6 hours and Mirapex discontinued Amantadine is on hold since is cannot be given through the tube PT/OT ordered. Speech following for dysphasia. Back off on Trazodone dose (5) Agitation: Code(s): R45.1 - Restlessness and agitation Status: Acute Assessment and Plan: Patient remaining calm. He is off of sedation Follow (6) Electrolyte abnormality: Code(s): E87.8 - Other disorders of electrolyte and fluid balance, not elsewhere classified Status: Acute Assessment and Plan: Potassium, Mg in normal range. Sodium higher still so will advance free water again Monitor. (7) Dysphagia: Code(s): R13.10 - Dysphagia, unspecified Status: Acute Assessment and Plan: After extubation, patient failed his bedside swallow evaluation so made NPO. NGT feeding started[place] [facility] [place] recommended non-oral feedings. Continue tube feedings. (8) UTI (urinary tract infection): Code(s): N39.0 - Urinary tract infection, site not specified Status: Acute Assessment and Plan: UCx negative. UTI ruled out Plan DVT prophylaxis -Lovenox Code Status -DNR/DNI Subjective Date/time seen: 08/18/25 15:03 Interval history: 75yo male with KYLE, hx of PE, asthma and Parkinson here for CP and intermittent SOB. Patient also reports he did have a ground level fall prior to admission Patient with wet cough and mumbled speech. Unable to obtian hx Review of Systems Review of Systems: ROS unobtainable: Yes unobtainable due to mental status Exam Narrative: AF 96.2 143/51 84 22 95% 2L Gen - chronically ill appearing NARD HEENT - NGT secured. Dry MM Chest - coarse BS diffusely but mostly upper airway congestion. CV - RRR S1/S2 Abd - Soft, ND, +BS - Brower secured draining clear dark yellow urine. Ext - mild diffuse pedal edema Neuro - arouses. mumbled speech. 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 Psych - sedate Skin - Warm and dry Objective Data Vital Signs Vital Signs: Vital Signs - 24 hr 08/17/25 16:00 08/17/25 20:10 08/17/25 20:32 Temperature 98.5 F Pulse Rate 82 98 Respiratory Rate 18 Blood Pressure 156/71 H Pulse Oximetry 97 91 Oxygen Delivery Nasal Cannula Oxygen Flow Rate 2 08/17/25 21:17 08/18/25 06:29 08/18/25 08:00 Temperature 98.4 F 97.6 F 96.2 F L Pulse Rate 97 87 84 Respiratory Rate 18 22 H Blood Pressure 154/47 H 153/45 H 143/51 H Pulse Oximetry 95 95 95 Oxygen Delivery Oxygen Flow Rate Intake/Output Intake/Output: Intake & Output 08/15/25 08/16/25 08/17/25 08/18/25 23:59 23:59 23:59 23:59 Intake Total 3057.7 1550 1513 100 Output Total 2300 2075 2250 475 Balance 757.7 -525 -737 -375 Meds/Results Medications: Active Medications Generic Name Dose Route Start Last Admin Trade Name Freq PRN Reason Stop Dose Admin Acetaminophen 650 mg 08/09/25 22:21 08/18/25 11:42 Acetaminophen Elixir 325 Mg/10.15 Ml Udc FEED TUBE 650 mg Q4H PRN Administration Fever Albuterol 2 puff 08/08/25 09:01 Albuterol Sulfate (*Sp) Aerosol 1 Puff INHALATION Q4HRT PRN Shortness Of Breath Or Wheezing Amantadine HCl 100 mg 08/10/25 09:00 08/10/25 10:37 Amantadine Hcl 100 Mg Capsule FEED TUBE Not Given On Hold: 08/10/25 12:13 TID DALE Amlodipine Besylate 10 mg 08/14/25 09:00 08/18/25 08:45 Amlodipine Besylate 10 Mg Tablet FEED TUBE 10 mg DAILY DALE Administration Bisacodyl 10 mg 08/11/25 07:45 08/13/25 08:00 Bisacodyl 10 Mg Suppository RECTAL 10 mg QAM PRN Administration Constipation Carbidopa/Levodopa 3 tablet 08/15/25 21:00 08/18/25 05:53 Carbidopa/Levodopa 25/100 Mg Tablet PO 3 tablet 00,03,06,21 DALE Administration Dextrose 12.5 gm 08/09/25 18:34 Dextrose 50% 25 Gm/50 Ml Syringe IV PUSH PRN PRN Hypoglycemia Protocol Enoxaparin Sodium 40 mg 08/10/25 09:00 08/18/25 08:45 Enoxaparin 40 Mg/0.4 Ml Syringe SUB-Q 40 mg DAILY DALE Administration Fluticasone Propionate 2 spray 08/08/25 09:01 Fluticasone Propionate 0.05% Na Spr 16 Gm Btl (*Bkc) NASAL PRN PRN allergies Glucagon 1 mg 08/09/25 18:34 Glucagon For Inj 1 Mg Vial IM PRN PRN Hypoglycemia Protocol Glucose 15 gm 08/09/25 18:34 Glucose Oral Gel 15 Gm Of Glucse In 37.5 Gm Tube PO PRN PRN Hypoglycemia Protocol Hydralazine HCl 20 mg 08/12/25 12:27 08/14/25 04:10 Hydralazine Hcl 20 Mg/Ml Vial IV PUSH 20 mg Q4H PRN Administration SBP more than 160 Dextrose 1,000 mls @ 100 mls/hr 08/09/25 18:34 Dextrose 5% 1,000 Ml IVPB PRN PRN Hypoglycemia Protocol Piperacillin Sod/Tazobactam 100 mls @ 200 mls/hr 08/17/25 16:00 08/18/25 10:01 Sod 4.5 gm/ Sodium Chloride IVPB 08/19/25 23:59 200 mls/hr Q6H DALE Administration Insulin Aspart 2 - 5 units 08/10/25 12:00 08/18/25 12:30 Insulin Aspart (*Bkc) 100 Units/Ml SUB-Q Not Given Q6HR DALE Protocol Labetalol HCl 20 mg 08/14/25 07:45 Labetalol Hcl Inj 100 Mg/20 Ml Vial IV PUSH Q4H PRN SBP > 160 and HR> 60 -1st choice Metoprolol Tartrate 25 mg 08/14/25 09:00 08/18/25 08:45 Metoprolol Tartrate 25 Mg Tablet FEED TUBE 25 mg Q12HR DALE Administration Pantoprazole Sodium 40 mg 08/10/25 09:00 08/18/25 08:45 Pantoprazole Sodium Iv 40 Mg Vial IV PUSH 40 mg QAM DALE Administration Polyethylene Glycol 17 gm 08/15/25 07:11 Polyethylene Glycol 3350 17 Gm Powd.Pack FEED TUBE QAM PRN Constipation Pramipexole Dihydrochloride 1 mg 08/10/25 09:00 08/14/25 08:24 Pramipexole 1 Mg Tablet FEED TUBE 1 mg On Hold: 08/14/25 10:56 TID DALE Administration Senna/Docusate Sodium 2 tab 08/10/25 09:00 08/18/25 08:45 Senna/Docusate Sodium Tablet FEED TUBE 2 tab BID DALE Administration Trazodone HCl 50 mg 08/14/25 21:00 08/17/25 20:31 Trazodone Hcl 50 Mg Tablet FEED TUBE 50 mg QHS DALE Administration Radiology Results: ITS Impressions Knee X-Ray 08/07/25 18:51 IMPRESSION: 1. No acute bony lesions. 2 osteopenic bones. Severe arthritis predominantly of patellofemoral joint. Please correlate with DEXA densitometry. 3 if symptoms are localized and persistent, MRI is indicated. Venous Doppler Study 08/07/25 20:49 IMPRESSION: 1. No deep venous thrombosis in the right lower extremity veins.. Ankle X-Ray 08/09/25 14:44 Impression: No acute fracture or malalignment. Wrist X-Ray 08/09/25 14:44 Impression: No acute fracture or malalignment. Head CT 08/09/25 20:23 IMPRESSION: 1. No acute findings in this limited noncontrast CT head. Chest/Abdomen/Pelvis CT 08/09/25 20:29 IMPRESSION: 1. Limited noncontrast examination is not optimal to evaluate solid viscera, vascular structures and neoplasms. 2. No acute pulmonary findings. Minimal platelike atelectasis of lung bases. 3. Tip of the endotracheal tube is low in position, just above the allie. Please reposition this ET tube more proximally by approximately 2.5 to 3 cm. 4. No acute findings in the abdomen and pelvis. Other findings as mentioned above. Chest X-Ray 08/14/25 07:12 IMPRESSION: 1. No significant change. 2. Persistent left basilar atelectasis and/or airspace disease. Modified Barium Swallow 08/16/25 11:03 IMPRESSION: Aspiration was observed. See speech therapist's note for complete evaluation. Labs Labs: Laboratory Results - last 24 hr 08/17/25 08/18/25 08/18/25 18:20 00:32 06:00 WBC 16.5 H RBC 4.46 L Hgb 12.5 L Hct 42.4 MCV 95.1 MCH 28.0 MCHC 29.5 L RDW 13.3 Plt Count 306 MPV 10.7 H Sodium 151 H Potassium 4.1 Chloride 111 H Carbon Dioxide 32 H Anion Gap 8 BUN 47 H Creatinine 1.03 Estim Creat Clear Calc 68 Estimated GFR > 60 Glucose 173 H POC Capillary Glucose 142 H 160 H Calcium 9.0 Magnesium 2.7 H Total Bilirubin 0.9 AST 60 H ALT 12 Alkaline Phosphatase 60 Total Creatine Kinase 39 L Total Protein 6.9 Albumin 3.5 Nasal MRSA (PCR) 08/18/25 08/18/25 09:05 11:46 WBC RBC Hgb Hct MCV MCH MCHC RDW Plt Count MPV Sodium Potassium Chloride Carbon Dioxide Anion Gap BUN Creatinine Estim Creat Clear Calc Estimated GFR Glucose POC Capillary Glucose 152 H Calcium Magnesium Total Bilirubin AST ALT Alkaline Phosphatase Total Creatine Kinase Total Protein Albumin Nasal MRSA (PCR) Not detected
[2025-08-19] VITALS (8 sets, daily range): BP systolic 145–166; BP diastolic 48–61; PULSE 64–92; RESP 18–24; TEMP 36.6–38.3; O2SAT 94–98
[2025-08-19] MEDS: CARBIDOPA/LEVODOPA 25/100 MG TABLET 3 TABLET PO ×3 (01:22→21:01)
[2025-08-19] MEDS: PIPERACILLIN/TAZOBACTAM SOD 4.5 GM in SODIUM CHLORIDE 0.9% IV 100 ML 200 ML IVPB ×4 (05:04→21:01)
[2025-08-19 05:45] LABS: Hematocrit 43.6 % (42.0-52.0); Hemoglobin 12.9 g/dL (14.0-18.0); Immature Granulocyte Percent A 1.1 % (0-0.5); Lymphocytes Absolute Auto 1.51 K/mm3 (0.9-3.2); Mean Corpuscular HGB Conc 29.6 g/dl (32-36); Mean Corpuscular Hemoglobin 28.6 pg (26-34); Mean Corpuscular Volume 96.7 fl (80-100); Nucleated Red Blood Cells Absolute Auto 0.000 K/mm3 (0.0-0.012); Nucleated Red Blood Cells Perc 0.0 % (0.0-0.2); Platelet Count Result 310 k/mm3 (150-375); Red Blood Count 4.51 M/mm3 (4.6-6.20); White Blood Count 16.9 K/mm3 (4.5-10.0)
[2025-08-19 06:02] LABS: Albumin Level 3.6 g/dL (3.5-5.1); Anion Gap 8 mmol/L (4-12); Blood Urea Nitrogen 47 mg/dL (9-20); Calcium 8.8 mg/dL (8.4-10.2); Carbon Dioxide 31 mmol/L (22-30); Chloride 112 mmol/L (98-107); Estimated CRCL calculation 68 ml/min; Estimated Glomerular Filt Rate > 60; Glucose 172 mg/dL (65-110); Magnesium 2.7 mg/dL (1.6-2.3); Potassium 3.8 mmol/L (3.4-5.0); Sodium 151 mmol/L (137-145)
[2025-08-19 06:28] LABS: Hypochromasia 1+; Schistocytes None Seen
[2025-08-19] MEDS: PANTOPRAZOLE SODIUM IV 40 MG VIAL IV PUSH (09:37)
[2025-08-19] MEDS: SENNA/DOCUSATE SODIUM TABLET 2 TAB FEED TUBE ×2 (09:39→18:03)
[2025-08-19] MEDS: METOPROLOL TARTRATE 25 MG TABLET FEED TUBE ×2 (09:39→21:05)
[2025-08-19] MEDS: ENOXAPARIN 40 MG/0.4 ML SYRINGE SUB-Q (09:40)
--- NOTE | 2025-08-19 15:02 | P.PNIM_ITS ---
Assessment and Plan Assessment and Plan (1) Acute respiratory failure: Code(s): J96.00 - Acute respiratory failure, unspecified whether with hypoxia or hypercapnia Status: Acute Assessment and Plan: Acute respiratory failure secondary to altered mental status, weakness from Parkinson's and pulmonary edema. Patient was intubated on 08/09 and sedated. Patient was stabilized. He was weaned as tolerated and eventually extubated 08/13. Patient transitioned to BiPAP then now uses only at night. Failed his bedside swallow evaluation so made NPO. [place] feeding [place] [facility] [place]. Was on 7L nasal cannula intially but weaned to 2L Continue p.r.n. bronchodilators. Continue EzPAP. Encouraged compliance with BiPAP (2) Fever: Code(s): R50.9 - Fever, unspecified Status: Acute Assessment and Plan: Patient was having fever with increased respiratory secretions concerning for pneumonia, possibly aspiration BCx 08/07, 08/08 and 08/09 negative UCx 08/10 negative BCx 08/13: NGTD Sputum culture 08/13 growing heavy growth of corynebacterium striatum of unknown significance Started on cefepime and vancomycin (08/14) Fevers have resolved and WBC was stable in the 11-13K range. MRSA nasal swab negative. Changed to Zosyn monotherapy on 08/18. WBC higher at 17K but no fevers. Continue abx to complete a course. (3) Dysphagia: Code(s): R13.10 - Dysphagia, unspecified Status: Acute Assessment and Plan: After extubation, patient failed his bedside swallow evaluation so made NPO. NGT feeding started[place] [facility] [place] non-[place] feedings. Continue tube feedings. Discussed with about GTube vs hospice care for about 25 minutes. All questions answered. She will talk with family about options. (4) Congestive heart failure: Code(s): I50.9 - Heart failure, unspecified Status: Acute Assessment and Plan: Patient has edema on exam and echo shows diastolic dysfunction. ProBNP was 1530. CXR showing mild CHF on admission Echo (03/15/25) showing EF 60-65%, grade I diastolic dysfunction Treated with intermittent IV Lasix. Last dose of diuretic 08/15. Not on diuretic therapy at home. Follow (5) Parkinson disease: Qualifiers: Dyskinesia presence: unspecified whether dyskinesia Fluctuating manifestations: unspecified whether manifestations fluctuate Qualified Code(s): G20.A1 - Parkinson's disease without dyskinesia, without mention of fluctuations Code(s): G20 - Parkinson's disease Status: Acute Assessment and Plan: Patient with Parkinson Disease on Sinemet at home. Continue levodopa carbidopa by enteral tube Sinemet was increased to 3 pills every 6 hours and Mirapex discontinued Amantadine is on hold since is cannot be given through the tube PT/OT ordered. Speech following for dysphasia. Stop Trazodone (6) Agitation: Code(s): R45.1 - Restlessness and agitation Status: Acute Assessment and Plan: Patient remaining calm. He is off of sedation Follow (7) Electrolyte abnormality: Code(s): E87.8 - Other disorders of electrolyte and fluid balance, not elsewhere classified Status: Acute Assessment and Plan: Potassium, Mg in normal range. Sodium higher still so will advance free water to 200ml Q4h Monitor. Plan DVT prophylaxis -Lovenox Code Status -DNR/DNI Subjective Date/time seen: 08/19/25 15:02 Interval history: 75yo male with KYLE, hx of PE, asthma and Parkinson here for CP and intermittent SOB. Patient also reports he did have a ground level fall prior to admission Patient with wet cough and mumbled speech. Unable to obtain hx. in room and she was updated. Wore BiPAP for about 2 hours Review of Systems Review of Systems: ROS unobtainable: Yes unobtainable due to mental status Exam Narrative: AF 98.4 166/48 85 20 98% 2L Gen - chronically ill appearing who is tachypneic HEENT - NGT secured. Dry MM Chest - coarse BS diffusely but mostly upper airway congestion. Tachypneic CV - irregular Abd - Soft, ND, +BS - Brower secured draining clear yellow urine. Ext - mild diffuse pedal edema Neuro - mumbled speech. follows commands. Psych - more awake Skin - Warm and dry Objective Data Vital Signs Vital Signs: Vital Signs - 24 hr 08/18/25 16:00 08/18/25 20:00 08/18/25 20:05 Temperature 96.1 F L 97.8 F Pulse Rate 63 92 Respiratory Rate 86 H 17 Blood Pressure 160/40 H 162/59 H Pulse Oximetry 20 L 93 99 Oxygen Delivery High Flow Therapy with Na Oxygen Flow Rate 5 Fraction of Inspired Oxygen 08/18/25 20:34 08/18/25 23:00 08/19/25 06:25 Temperature 97.8 F Pulse Rate 87 80 Respiratory Rate 36 H 18 Blood Pressure 145/52 H Pulse Oximetry 95 95 94 Oxygen Delivery BiPAP Oxygen Flow Rate 2 Fraction of Inspired Oxygen 08/19/25 08:00 08/19/25 08:30 Temperature 98.4 F Pulse Rate 85 85 Respiratory Rate 20 20 Blood Pressure 166/48 H Pulse Oximetry 98 98 Oxygen Delivery BiPAP Oxygen Flow Rate Fraction of Inspired Oxygen 35 Intake/Output Intake/Output: Intake & Output 08/16/25 08/17/25 08/18/25 08/19/25 23:59 23:59 23:59 23:59 Intake Total 1550 1513 400 100 Output Total 2075 0 2024 450 Balance -525 -737 -1625 -350 Meds/Results Medications: Active Medications Generic Name Dose Route Start Last Admin Trade Name Freq PRN Reason Stop Dose Admin Acetaminophen 650 mg 08/09/25 22:21 08/18/25 22:33 Acetaminophen Elixir 325 Mg/10.15 Ml Udc FEED TUBE 650 mg Q4H PRN Administration Fever Albuterol 2 puff 08/08/25 09:01 Albuterol Sulfate (*Sp) Aerosol 1 Puff INHALATION Q4HRT PRN Shortness Of Breath Or Wheezing Amantadine HCl 100 mg 08/10/25 09:00 08/10/25 10:37 Amantadine Hcl 100 Mg Capsule FEED TUBE Not Given On Hold: 08/10/25 12:13 TID DALE Amlodipine Besylate 10 mg 08/14/25 09:00 08/19/25 09:39 Amlodipine Besylate 10 Mg Tablet FEED TUBE 10 mg DAILY DALE Administration Bisacodyl 10 mg 08/11/25 07:45 08/13/25 08:00 Bisacodyl 10 Mg Suppository RECTAL 10 mg QAM PRN Administration Constipation Carbidopa/Levodopa 3 tablet 08/15/25 21:00 08/19/25 09:37 Carbidopa/Levodopa 25/100 Mg Tablet PO Not Given 00,03,06,21 DALE Dextrose 12.5 gm 08/09/25 18:34 Dextrose 50% 25 Gm/50 Ml Syringe IV PUSH PRN PRN Hypoglycemia Protocol Enoxaparin Sodium 40 mg 08/10/25 09:00 08/19/25 09:40 Enoxaparin 40 Mg/0.4 Ml Syringe SUB-Q 40 mg DAILY DALE Administration Fluticasone Propionate 2 spray 08/08/25 09:01 Fluticasone Propionate 0.05% Na Spr 16 Gm Btl (*Bkc) NASAL PRN PRN allergies Glucagon 1 mg 08/09/25 18:34 Glucagon For Inj 1 Mg Vial IM PRN PRN Hypoglycemia Protocol Glucose 15 gm 08/09/25 18:34 Glucose Oral Gel 15 Gm Of Glucse In 37.5 Gm Tube PO PRN PRN Hypoglycemia Protocol Hydralazine HCl 20 mg 08/12/25 12:27 08/14/25 04:10 Hydralazine Hcl 20 Mg/Ml Vial IV PUSH 20 mg Q4H PRN Administration SBP more than 160 Dextrose 1,000 mls @ 100 mls/hr 08/09/25 18:34 Dextrose 5% 1,000 Ml IVPB PRN PRN Hypoglycemia Protocol Piperacillin Sod/Tazobactam 100 mls @ 200 mls/hr 08/17/25 16:00 08/19/25 09:38 Sod 4.5 gm/ Sodium Chloride IVPB 08/19/25 23:59 200 mls/hr Q6H DALE Administration Insulin Aspart 2 - 5 units 08/10/25 12:00 08/19/25 11:52 Insulin Aspart (*Bkc) 100 Units/Ml SUB-Q Not Given Q6HR DALE Protocol Labetalol HCl 20 mg 08/14/25 07:45 Labetalol Hcl Inj 100 Mg/20 Ml Vial IV PUSH Q4H PRN SBP > 160 and HR> 60 -1st choice Metoprolol Tartrate 25 mg 08/14/25 09:00 08/19/25 09:39 Metoprolol Tartrate 25 Mg Tablet FEED TUBE 25 mg Q12HR DALE Administration Pantoprazole Sodium 40 mg 08/10/25 09:00 08/19/25 09:37 Pantoprazole Sodium Iv 40 Mg Vial IV PUSH 40 mg QAM DALE Administration Polyethylene Glycol 17 gm 08/15/25 07:11 Polyethylene Glycol 3350 17 Gm Powd.Pack FEED TUBE QAM PRN Constipation Pramipexole Dihydrochloride 1 mg 08/10/25 09:00 08/14/25 08:24 Pramipexole 1 Mg Tablet FEED TUBE 1 mg On Hold: 08/14/25 10:56 TID DALE Administration Senna/Docusate Sodium 2 tab 08/10/25 09:00 08/19/25 09:39 Senna/Docusate Sodium Tablet FEED TUBE 2 tab BID DALE Administration Trazodone HCl 12.5 mg 08/18/25 21:00 08/18/25 21:58 Trazodone Hcl 12.5 Mg Tablet FEED TUBE 12.5 mg QHS DALE Administration Radiology Results: ITS Impressions Knee X-Ray 08/07/25 18:51 IMPRESSION: 1. No acute bony lesions. 2 osteopenic bones. Severe arthritis predominantly of patellofemoral joint. Please correlate with DEXA densitometry. 3 if symptoms are localized and persistent, MRI is indicated. Venous Doppler Study 08/07/25 20:49 IMPRESSION: 1. No deep venous thrombosis in the right lower extremity veins.. Ankle X-Ray 08/09/25 14:44 Impression: No acute fracture or malalignment. Wrist X-Ray 08/09/25 14:44 Impression: No acute fracture or malalignment. Head CT 08/09/25 20:23 IMPRESSION: 1. No acute findings in this limited noncontrast CT head. Chest/Abdomen/Pelvis CT 08/09/25 20:29 IMPRESSION: 1. Limited noncontrast examination is not optimal to evaluate solid viscera, vascular structures and neoplasms. 2. No acute pulmonary findings. Minimal platelike atelectasis of lung bases. 3. Tip of the endotracheal tube is low in position, just above the allie. Please reposition this ET tube more proximally by approximately 2.5 to 3 cm. 4. No acute findings in the abdomen and pelvis. Other findings as mentioned above. Chest X-Ray 08/14/25 07:12 IMPRESSION: 1. No significant change. 2. Persistent left basilar atelectasis and/or airspace disease. Modified Barium Swallow 08/16/25 11:03 IMPRESSION: Aspiration was observed. See speech therapist's note for complete evaluation. Labs Labs: Laboratory Results - last 24 hr 08/18/25 08/18/25 08/19/25 17:35 23:44 04:44 WBC RBC Hgb Hct MCV MCH MCHC RDW Plt Count MPV Immature Gran % (Auto) Neut % (Auto) Lymph % (Auto) [place] % (Auto) Eos % (Auto) Baso % (Auto) Lymph # (Auto) [place] # (Auto) Eos # (Auto) Baso # (Auto) Abs Immat Gran (auto) Absolute Neuts (auto) Absolute Nucleated RBC Band Neutrophils % Nucleated RBC % Platelet Estimate Hypochromasia Schistocytes Sodium Potassium Chloride Carbon Dioxide Anion Gap BUN Creatinine Estim Creat Clear Calc Estimated GFR Glucose POC Capillary Glucose 183 H 182 H 171 H Calcium Phosphorus Magnesium Albumin 08/19/25 08/19/25 05:12 11:44 WBC 16.9 H RBC 4.51 L Hgb 12.9 L Hct 43.6 MCV 96.7 MCH 28.6 MCHC 29.6 L RDW 13.4 Plt Count 310 MPV 11.0 H Immature Gran % (Auto) 1.1 H Neut % (Auto) 79.2 H Lymph % (Auto) 8.9 L [place] % (Auto) 7.3 Eos % (Auto) 3.1 Baso % (Auto) 0.4 Lymph # (Auto) 1.51 [place] # (Auto) 1.2 H Eos # (Auto) 0.5 H Baso # (Auto) 0.1 Abs Immat Gran (auto) 0.19 H Absolute Neuts (auto) 13.4 H Absolute Nucleated RBC 0.000 Band Neutrophils % Not Reportable Nucleated RBC % 0.0 Platelet Estimate Adequate Hypochromasia 1+ Schistocytes None seen Sodium 151 H Potassium 3.8 Chloride 112 H Carbon Dioxide 31 H Anion Gap 8 BUN 47 H Creatinine 1.03 Estim Creat Clear Calc 68 Estimated GFR > 60 Glucose 172 H POC Capillary Glucose 178 H Calcium 8.8 Phosphorus 4.2 Magnesium 2.7 H Albumin 3.6
--- NOTE | 2025-08-19 15:10 | PCSTNOTE ---
14:10 ST attempted tx session #2 of 2-3; Pt would not arouse.
[2025-08-19] MEDS: ACETAMINOPHEN ELIXIR 325 MG/10.15 ML UDC 650 MG FEED TUBE (21:01)
[2025-08-20] MEDS: KETOROLAC 15 MG/ML VIAL (*BKC) IV PUSH (00:03)
[2025-08-20] MEDS: CARBIDOPA/LEVODOPA 25/100 MG TABLET 3 TABLET PO ×3 (00:04→06:22)
[2025-08-20 00:33] VITALS: TEMP 37.7
[2025-08-20] MEDS: ACETAMINOPHEN ELIXIR 325 MG/10.15 ML UDC 650 MG FEED TUBE ×2 (02:56→06:34)
[2025-08-20 06:14] VITALS: BP 141/47; PULSE 83; RESP 20; TEMP 37.9; O2SAT 97
[2025-08-20 06:29] LABS: Hematocrit 41.5 % (42.0-52.0); Hemoglobin 12.4 g/dL (14.0-18.0); Immature Granulocyte Percent A 0.9 % (0-0.5); Lymphocytes Absolute Auto 1.35 K/mm3 (0.9-3.2); Mean Corpuscular HGB Conc 29.9 g/dl (32-36); Mean Corpuscular Hemoglobin 28.8 pg (26-34); Mean Corpuscular Volume 96.3 fl (80-100); Nucleated Red Blood Cells Absolute Auto 0.000 K/mm3 (0.0-0.012); Nucleated Red Blood Cells Perc 0.0 % (0.0-0.2); Platelet Count Result 284 k/mm3 (150-375); Red Blood Count 4.31 M/mm3 (4.6-6.20); White Blood Count 14.0 K/mm3 (4.5-10.0)
[2025-08-20 06:57] LABS: Anion Gap 6 mmol/L (4-12); Blood Urea Nitrogen 52 mg/dL (9-20); Calcium 8.9 mg/dL (8.4-10.2); Carbon Dioxide 31 mmol/L (22-30); Chloride 116 mmol/L (98-107); Estimated CRCL calculation 68 ml/min; Estimated Glomerular Filt Rate > 60; Glucose 153 mg/dL (65-110); Potassium 3.9 mmol/L (3.4-5.0); Sodium 153 mmol/L (137-145)
[2025-08-20 06:58] LABS: Hypochromasia 1+
[2025-08-20 07:00] LABS: Schistocytes None Seen
[2025-08-20 08:00] VITALS: O2SAT 97
[2025-08-20 09:01] VITALS: PULSE 85
[2025-08-20] MEDS: METOPROLOL TARTRATE 25 MG TABLET FEED TUBE (09:01)
[2025-08-20] MEDS: ENOXAPARIN 40 MG/0.4 ML SYRINGE SUB-Q (09:02)
[2025-08-20] MEDS: PANTOPRAZOLE SODIUM IV 40 MG VIAL IV PUSH (09:02)
[2025-08-20] MEDS: SENNA/DOCUSATE SODIUM TABLET 2 TAB FEED TUBE (09:02)
[2025-08-20] MEDS: MEROPENEM 1 GM in SODIUM CHLORIDE 0.9% IV 100 ML 200 ML IVPB (10:08)
[2025-08-20] MEDS: VANCOMYCIN 1,250 MG/NS 250 ML 1,250 MG/250 ML BAG 166.67 MG IVPB ×2 (10:53→10:54)
--- NOTE | 2025-08-20 12:26 | PCSTNOTE ---
ST attempted to provide ST session #2 of 2-3 this date; pts family verbalized that they would like him to rest and he has been placed on hospice.
[2025-08-20 13:40] VITALS: BP 120/43; PULSE 80; RESP 22; TEMP 37.5; O2SAT 97
--- NOTE | 2025-08-20 13:46 | PM.IMPN2 ---
Assessment and Plan Assessment and Plan (1) Acute respiratory failure: Code(s): J96.00 - Acute respiratory failure, unspecified whether with hypoxia or hypercapnia Status: Acute Assessment and Plan: Acute respiratory failure secondary to altered mental status, weakness from Parkinson's and pulmonary edema. Patient was intubated on 08/09 and sedated. Patient was stabilized. He was weaned as tolerated and eventually extubated 08/13. Patient transitioned to BiPAP then now uses only at night. Failed his bedside swallow evaluation so made NPO. NGT feeding started. [facility] [place]. Was on 7L nasal cannula intially but weaned to 2L Continue p.r.n. bronchodilators. Continue EzPAP. Encouraged compliance with BiPAP Spoke with patient's and dtr. Explained options including GTube with continued therapy vs transitioning to comfort care. They have decided to move to comfort measures. Hospice consult. All questions answered. (2) Fever: Code(s): R50.9 - Fever, unspecified Status: Acute Assessment and Plan: Patient was having fever with increased respiratory secretions concerning for pneumonia, possibly aspiration BCx 08/07, 08/08 and 08/09 negative UCx 08/10 negative BCx 08/13: NGTD Sputum culture 08/13 growing heavy growth of corynebacterium striatum of unknown significance Started on cefepime and vancomycin (08/14) Fevers have resolved and WBC was stable in the 11-13K range. MRSA nasal swab negative. Changed to Zosyn monotherapy on 08/18. WBC better at 14K but now having fevers. Change abx to Vanco and meropenem. (3) Dysphagia: Code(s): R13.10 - Dysphagia, unspecified Status: Acute Assessment and Plan: After extubation, patient failed his bedside swallow evaluation so made NPO. NGT feeding started. [facility] [place] recommended non-oral feedings. Continue tube feedings. (4) Congestive heart failure: Code(s): I50.9 - Heart failure, unspecified Status: Acute Assessment and Plan: Patient has edema on exam and echo shows diastolic dysfunction. ProBNP was 1530. CXR showing mild CHF on admission Echo (03/15/25) showing EF 60-65%, grade I diastolic dysfunction Treated with intermittent IV Lasix. Last dose of diuretic 08/15. Not on diuretic therapy at home. Follow (5) Parkinson disease: Qualifiers: Dyskinesia presence: unspecified whether dyskinesia Fluctuating manifestations: unspecified whether manifestations fluctuate Qualified Code(s): G20.A1 - Parkinson's disease without dyskinesia, without mention of fluctuations Code(s): G20 - Parkinson's disease Status: Acute Assessment and Plan: Patient with Parkinson Disease on Sinemet at home. Continue levodopa carbidopa by enteral tube Sinemet was increased to 3 pills every 6 hours and Mirapex discontinued Amantadine is on hold since is cannot be given through the tube PT/OT ordered. Speech following for dysphasia. (6) Agitation: Code(s): R45.1 - Restlessness and agitation Status: Acute Assessment and Plan: Patient remaining calm. He is off of sedation Follow (7) Electrolyte abnormality: Code(s): E87.8 - Other disorders of electrolyte and fluid balance, not elsewhere classified Status: Acute Assessment and Plan: Potassium in normal range. Sodium higher still so will advance free water to 250ml Q4h Monitor. Plan DVT prophylaxis -Lovenox Code Status -DNR/DNI Subjective Date/time seen: 08/20/25 13:46 Interval history: 75yo male with KYLE, hx of PE, asthma and Parkinson here for CP and intermittent SOB. Patient also reports he did have a ground level fall prior to admission Nonverbal today. Family at bedside and they were updated. Review of Systems Review of Systems: ROS unobtainable: Yes unobtainable due to mental status Exam Narrative: AF 99.5 120/43 80 22 97% Gen - chronically ill appearing who is tachypneic HEENT - NGT secured. Dry MM Chest - coarse BS diffusely CV - RRR Abd - Soft, ND, +BS - Brower secured draining clear yellow urine. Ext - mild diffuse pedal edema Neuro - nonverbal. follows commands on occasion. Psych - somnolent Skin - Warm and dry Objective Data Vital Signs Vital Signs: Vital Signs - 24 hr 08/19/25 16:00 08/19/25 21:05 08/19/25 21:13 Temperature 99.6 F 99.8 F H Pulse Rate 87 64 92 Respiratory Rate 24 H 20 Blood Pressure 162/53 H 159/61 H Pulse Oximetry 98 95 08/19/25 22:46 08/19/25 23:18 08/20/25 00:33 Temperature 101 F H 101 F H 99.9 F H Pulse Rate Respiratory Rate Blood Pressure Pulse Oximetry 08/20/25 06:14 08/20/25 09:01 08/20/25 13:40 Temperature 100.2 F H 99.5 F Pulse Rate 83 85 80 Respiratory Rate 20 22 H Blood Pressure 141/47 H 120/43 L Pulse Oximetry 97 97 Intake/Output Intake/Output: Intake & Output 08/17/25 08/18/25 08/19/25 08/20/25 23:59 23:59 23:59 23:59 Intake Total 1137 219 3096 1295 Output Total 2250 2025 450 350 Ictmvln -737 -5150 1590 945 Meds/Results Medications: Active Medications Generic Name Dose Route Start Last Admin Trade Name Freq PRN Reason Stop Dose Admin Acetaminophen 650 mg 08/09/25 22:21 08/20/25 06:34 Acetaminophen Elixir 325 Mg/10.15 Ml Udc FEED TUBE 650 mg Q4H PRN Administration Fever Albuterol 2 puff 08/08/25 09:01 Albuterol Sulfate (*Sp) Aerosol 1 Puff INHALATION Q4HRT PRN Shortness Of Breath Or Wheezing Amlodipine Besylate 10 mg 08/14/25 09:00 08/20/25 09:01 Amlodipine Besylate 10 Mg Tablet FEED TUBE 10 mg DAILY DALE Administration Atropine Sulfate 1 drop 08/19/25 23:00 08/20/25 10:59 Atropine Sulfate 1% Ophth Soln 5 Ml Bottle SUBLINGUAL 1 drop Q4H PRN Administration Secretions Bisacodyl 10 mg 08/11/25 07:45 08/13/25 08:00 Bisacodyl 10 Mg Suppository RECTAL 10 mg QAM PRN Administration Constipation Carbidopa/Levodopa 3 tablet 08/15/25 21:00 08/20/25 06:22 Carbidopa/Levodopa 25/100 Mg Tablet PO 3 tablet 00,,, DALE Administration Dextrose 12.5 gm 08/09/25 18:34 Dextrose 50% 25 Gm/50 Ml Syringe IV PUSH PRN PRN Hypoglycemia Protocol Enoxaparin Sodium 40 mg 08/10/25 09:00 08/20/25 09:02 Enoxaparin 40 Mg/0.4 Ml Syringe SUB-Q 40 mg DAILY DALE Administration Fluticasone Propionate 2 spray 12/09/25 09:01 Fluticasone Propionate 0.05% Na Spr 16 Gm Btl (*Bkc) NASAL PRN PRN allergies Glucagon 1 mg 08/09/25 18:34 Glucagon For Inj 1 Mg Vial IM PRN PRN Hypoglycemia Protocol Glucose 15 gm 08/09/25 18:34 Glucose Oral Gel 15 Gm Of Glucse In 37.5 Gm Tube PO PRN PRN Hypoglycemia Protocol Hydralazine HCl 20 mg 08/12/25 12:27 08/14/25 04:10 Hydralazine Hcl 20 Mg/Ml Vial IV PUSH 20 mg Q4H PRN Administration SBP more than 160 Dextrose 1,000 mls @ 100 mls/hr 08/09/25 18:34 Dextrose 5% 1,000 Ml IVPB PRN PRN Hypoglycemia Protocol Meropenem 1 gm/ Sodium 100 mls @ 200 mls/hr 08/20/25 09:00 08/20/25 10:38 Chloride IVPB Infused Q8H DALE Infusion Vancomycin HCl 1,500 mg in 500 mls @ 250 mls/hr 08/20/25 23:00 Vancomycin 1,500 Mg/Ns 500 Ml IVPB Q12H DALE Insulin Aspart 2 - 5 units 08/10/25 12:00 08/20/25 12:36 Insulin Aspart (*Bkc) 100 Units/Ml SUB-Q Not Given Q6HR DALE Protocol Labetalol HCl 20 mg 08/14/25 07:45 Labetalol Hcl Inj 100 Mg/20 Ml Vial IV PUSH Q4H PRN SBP > 160 and HR> 60 -1st choice Metoprolol Tartrate 25 mg 08/14/25 09:00 08/20/25 09:01 Metoprolol Tartrate 25 Mg Tablet FEED TUBE 25 mg Q12HR DALE Administration Pantoprazole Sodium 40 mg 08/10/25 09:00 08/20/25 09:02 Pantoprazole Sodium Iv 40 Mg Vial IV PUSH 40 mg QAM DALE Administration Polyethylene Glycol 17 gm 08/15/25 07:11 Polyethylene Glycol 3350 17 Gm Powd.Pack FEED TUBE QAM PRN Constipation Senna/Docusate Sodium 2 tab 08/10/25 09:00 08/20/25 09:02 Senna/Docusate Sodium Tablet FEED TUBE 2 tab BID DALE Administration Radiology Results: ITS Impressions Knee X-Ray 08/07/25 18:51 IMPRESSION: 1. No acute bony lesions. 2 osteopenic bones. Severe arthritis predominantly of patellofemoral joint. Please correlate with DEXA densitometry. 3 if symptoms are localized and persistent, MRI is indicated. Venous Doppler Study 08/07/25 20:49 IMPRESSION: 1. No deep venous thrombosis in the right lower extremity veins.. Ankle X-Ray 08/09/25 14:44 Impression: No acute fracture or malalignment. Wrist X-Ray 08/09/25 14:44 Impression: No acute fracture or malalignment. Head CT 08/09/25 20:23 IMPRESSION: 1. No acute findings in this limited noncontrast CT head. Chest/Abdomen/Pelvis CT 08/09/25 20:29 IMPRESSION: 1. Limited noncontrast examination is not optimal to evaluate solid viscera, vascular structures and neoplasms. 2. No acute pulmonary findings. Minimal platelike atelectasis of lung bases. 3. Tip of the endotracheal tube is low in position, just above the allie. Please reposition this ET tube more proximally by approximately 2.5 to 3 cm. 4. No acute findings in the abdomen and pelvis. Other findings as mentioned above. Chest X-Ray 08/14/25 07:12 IMPRESSION: 1. No significant change. 2. Persistent left basilar atelectasis and/or airspace disease. Modified Barium Swallow 08/16/25 11:03 IMPRESSION: Aspiration was observed. See speech therapist's note for complete evaluation. Labs Labs: Laboratory Results - last 24 hr 08/19/25 08/20/25 08/20/25 18:09 00:24 06:06 WBC 14.0 H RBC 4.31 L Hgb 12.4 L Hct 41.5 L MCV 96.3 MCH 28.8 MCHC 29.9 L RDW 13.5 Plt Count 284 MPV 11.4 H Immature Gran % (Auto) 0.9 H Neut % (Auto) 77.7 H Lymph % (Auto) 9.7 L [place] % (Auto) 6.8 Eos % (Auto) 4.5 H Baso % (Auto) 0.4 Lymph # (Auto) 1.35 [place] # (Auto) 1.0 H Eos # (Auto) 0.6 H Baso # (Auto) 0.1 Abs Immat Gran (auto) 0.13 H Absolute Neuts (auto) 10.8 H Absolute Nucleated RBC 0.000 Band Neutrophils % Not Reportable Nucleated RBC % 0.0 Platelet Estimate Adequate Hypochromasia 1+ Schistocytes None seen Sodium 153 H Potassium 3.9 Chloride 116 H Carbon Dioxide 31 H Anion Gap 6 BUN 52 H Creatinine 1.04 Estim Creat Clear Calc 68 Estimated GFR > 60 Glucose 153 H POC Capillary Glucose 158 H 167 H Calcium 8.9 08/20/25 08/20/25 06:17 11:26 WBC RBC Hgb Hct MCV MCH MCHC RDW Plt Count MPV Immature Gran % (Auto) Neut % (Auto) Lymph % (Auto) [place] % (Auto) Eos % (Auto) Baso % (Auto) Lymph # (Auto) [place] # (Auto) Eos # (Auto) Baso # (Auto) Abs Immat Gran (auto) Absolute Neuts (auto) Absolute Nucleated RBC Band Neutrophils % Nucleated RBC % Platelet Estimate Hypochromasia Schistocytes Sodium Potassium Chloride Carbon Dioxide Anion Gap BUN Creatinine Estim Creat Clear Calc Estimated GFR Glucose POC Capillary Glucose 154 H 163 H Calcium
--- NOTE | 2025-08-22 20:19 | PM.DS ---
DS: Admitting Diagnosis Discharge Date 08/20/25 Admitting Diagnosis Shortness of breath DS: Discharge Diagnosis Discharge Diagnosis (1) Acute respiratory failure: Code(s): J96.00 - Acute respiratory failure, unspecified whether with hypoxia or hypercapnia Status: Acute (2) Fever: Code(s): R50.9 - Fever, unspecified Status: Acute (3) Dysphagia: Code(s): R13.10 - Dysphagia, unspecified Status: Acute (4) Congestive heart failure: Code(s): I50.9 - Heart failure, unspecified Status: Acute (5) Parkinson disease: Qualifiers: Dyskinesia presence: unspecified whether dyskinesia Fluctuating manifestations: unspecified whether manifestations fluctuate Qualified Code(s): G20.A1 - Parkinson's disease without dyskinesia, without mention of fluctuations Code(s): G20 - Parkinson's disease Status: Acute (6) Agitation: Code(s): R45.1 - Restlessness and agitation Status: Acute (7) Electrolyte abnormality: Code(s): E87.8 - Other disorders of electrolyte and fluid balance, not elsewhere classified Status: Acute DS: Summary Hospital Course Reason for hospitalization: 75yo male with KYLE, hx of PE, asthma and Parkinson here for CP and intermittent SOB. Patient also reports he did have a ground level fall prior to admission. Please see H&P for details Hospital Course: Patient presented with SOB and found to have acute respiratory failure secondary to altered mental status, weakness from Parkinson's and pulmonary edema. Patient was intubated on 08/09 and sedated. Patient was stabilized. He was weaned as tolerated and eventually extubated 08/13. Patient transitioned to BiPAP then now uses only at night. He failed his bedside swallow evaluation so made NPO. NGT feeding started. MBS recommended non-oral feedings. Was on 7L nasal cannula intially but weaned to 2L. He was having fevers off and on. Spoke with patient's and dtr. Explained options including GTube with continued therapy vs transitioning to comfort care. They have decided to move to comfort measures. Hospice consulted and patient transferred to hospice on 08/20/25. Status at Discharge Cognitive/behavioral status at discharge: critical Time Spent with Patient Time attestation: Total time spent providing and/or coordinating discharge services: 50 minutes Time spent: Greater than 30 minutes Exam Narrative: AF 99.5 120/43 80 22 97% Gen - chronically ill appearing who is tachypneic HEENT - NGT secured. Dry MM Chest - coarse BS diffusely CV - RRR Abd - Soft, ND, +BS - Brower secured draining clear yellow urine. Ext - mild diffuse pedal edema Neuro - nonverbal. follows commands on occasion. Psych - somnolent Skin - Warm and dry Discharge Plan Discharge Attending physician on discharge: Kuldip Mora Consulting providers: Nahum Kumar; Raymond Mclaughlin; Gwen Sandhu; Alex Stephenson; Oscar Roa; Marina Reese; Penelope Bower; Sylvester Ambriz; Quique Burrows; Benny Burks; Yudith Florez; Jj Moore; Jori Wren Discharging Clinician: Kuldip Mora Patient Disposition: Hospice - Medical Facility Activity: as tolerated Diet: as tolerated Patient Language: Georgian Stand Alone Forms: General Discharge Information Discharge Medications: No Action pramipexole [Mirapex] 1 mg tablet 1 mg PO TID fluticasone fur. 100 mcg-umeclid 62.5 mcg-vilant 25 mcg inhalat.powder 100-62.5-25 mcg blister with device 0RF albuterol sulfate 90 mcg/actuation HFA aerosol inhaler 2 inh inhalation Q4H PRN (Reason: shortness of breath or wheezing) Qty: 8.5 2RF (DME) BreatheRite MDI Spacer Spacer See Rx Instructions .Route Qty: 1 0RF Rx Instructions: As directed carbidopa-levodopa 50-200 mg tablet extended release 4 tablet PO HS Gemtesa 75 mg Tablet 75 mg PO DAILY carbidopa-levodopa 25-250 mg tablet 2.5 tablet PO TID Patient Comments: pt takes at 0700, 1200, 1700, sertraline 25 mg tablet 25 mg PO DAILY Qty: 30 1RF polyethylene glycol 3350 [Miralax] 17 gram Powder In Packet 17 g PO QAM Qty: 30 0RF sennosides-docusate sodium 8.6-50 mg Tablet 2 tab PO BID Qty: 60 0RF guaifenesin [Mucus Relief ER] 600 mg Tablet Extended Release 12hr 600 mg PO Q12HR Qty: 60 0RF gabapentin 600 mg tablet 600 mg PO QHS Qty: 30 0RF tizanidine 4 mg tablet 4 mg PO BID Qty: 180 1RF amantadine HCl 100 mg capsule 100 mg PO TID Qty: 90 0RF Patient Comments: 0700, 1200, 06343 trazodone 100 mg tablet 100 mg PO QHS Qty: 30 0RF fluticasone propionate [Flonase Allergy Relief] 50 mcg/actuation spray,suspension 2 spray intranasal PRN PRN (Reason: allergies) Qty: 1 0RF Rx Instructions: administer into each nostril Date of admission: 08/08/25 16:02 Primary Care Provider: Teresa Oshea Admitting Provider: Duyen Rajan Attending physician on admission: Kuldip Mora Condition: Stable Hospitalist MIPS Heart Failure (Exclusion) Patient has history of Heart Transplant or Left Ventricular Assistive Device?: No IF YES, STOP HERE Heart Failure (Qualifier) Patient has current or prior documentation of LVEF less than or equal to 40%, or mod/servere depressed LVSF?: No IF NO, STOP HERE
== END 2025-08-20 14:20 | disposition hospice, inpatient (51) | DRG 208 ==
LOC: ANHED 21:26 → ANH3MEDSUR 23:18 → ANHICU 08-09 17:56 → ANH3MEDSUR 08-16 15:47
PROVIDERS: Emergency Medicine; Family Medicine; General Practice; Internal Medicine; Admitting Provider Internal Medicine; Emergency Provider Emergency Medicine; PCP Nurse Practitioner Family; Visit Provider Internal Medicine
DX: J18.9 Pneumonia, unspecified organism (principal); I50.31 Acute diastolic (congestive) heart failure; J96.00 Acute respiratory failure, unspecified whether with hypoxia or hypercapnia; G20.A1 Parkinson's disease without dyskinesia, without mention of fluctuations; J69.0 Pneumonitis due to inhalation of food and vomit; W18.30XA Fall on same level, unspecified, initial encounter; B96.89 Other specified bacterial agents as the cause of diseases classified elsewhere; K21.9 Gastro-esophageal reflux disease without esophagitis; G62.9 Polyneuropathy, unspecified; R45.1 Restlessness and agitation; R13.10 Dysphagia, unspecified; E87.8 Other disorders of electrolyte and fluid balance, not elsewhere classified; G47.33 Obstructive sleep apnea (adult) (pediatric); I50.9 Heart failure, unspecified; Z20.822 Contact with and (suspected) exposure to COVID-19; Z86.718 Personal history of other venous thrombosis and embolism; Z86.16 Personal history of COVID-19; Z86.711 Personal history of pulmonary embolism; Z51.5 Encounter for palliative care
CPT/HCPCS: 36415; 36600; 70450; 71045; 71046; 71250; 73100; 73562; 73600; 74176; 74230; 80048; 80053; 80069; 80202; 81001; 82375; 82550; 82805; 82948; 83050; 83605; 83735; 83880; 84100; 84145; 85018; 85025; 85027; 85610; 85730; 87040; 87070; 87086; 87205; 87637; 87641; 92526; 92610; 92611; 93005; 93971; 94002; 94003; 94660; 96365; 96367; 97110; 97162; 97166; 97530; 99285; A9270; G0378; J0360; J0456; J0692; J0696; J1650; J1885; J1938; J1939; J1953; J2185; J2250; J2270; J2470; J2543; J2704; J3010; J3360; J3373; J7030; J7050

== ENCOUNTER 2025-08-20 14:21 | HOS | payer OTHER, MEDICARE, SELFPAY ==
--- OUTSIDE RECORDS SUMMARY | 2025-08-20 14:25 | XMS_ITS | Clinical Summary ---
Author Organization [facility] Address [address] [place] [address] Care Team Providers Care Legal Administrator Name Role Phone Teresa Oshea NP Primary Care Provider [phone] Allergies No known active allergies Medications tiZANidine [...] to further evaluate. Will request records from [facility] for further review. If records do not [...] for dyskinesia with oral meds. 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 Assessment & Plan (09/30/2024 9:13 PM CONSUMER [employer] MERCHANDISER): 74 y.o. man with Parkinson disease that [...] all times. He should also start APDA youYouFetch channel exercises and may start PD Voice [...] as addressed to the patient): Orders for [facility]isted [facility]: Taper and stop [...] at all times. He should also start [employer] youtube channel exercises and may start PD [...] if interested in PT for FOG at [facility]. - Same trazodone for sleep. - [...] use. Assessment & Plan (09/03/2023 12:54 PM CONSUMER [employer] MERCHANDISER): 73 y.o. man with Parkinson's disease for [...] doing RSB and working out at the [employer] religiously. He has some occasional middle insomnia [...] dyshpagia. - Same Metamucil. - Start APDA youtOrthoFi channel exercises and PD voice project. - [...] encounter. Assessment & Plan (10/20/2022 2:03 PM [employer] MERCHANDISER): ASSESSMENT - 72 y.o. man with Parkinson's [...] doing RSB and working out at the [facility] religiously. - Insomnia: He has some [...] switching over to Miralax. - Start APDA youtOrthoFi channel exercises and PD voice project. - Switch oxybutynin to Myrbetriq, Gemtesa or Trospium with PMD/urologist. - Strict walker use. - Check B12. Assessment & Plan (10/14/2021 5:41 PM CON[employer]ER [employer] MERCHANDISER): ASSESSMENT - 71 y.o. man with Parkinson's [...] you have bothersome dyskinesias This encounter's total gnvf-uh-idkx time was greater than 40 minutes. I [...] dose. Assessment & Plan (11/08/2020 1:19 PM CONSUMER [employer] MERCHANDISER): ASSESSMENT - 70 y.o. man with Parkinson's [...] sleep disruption or nightmares. This encounter's total gant-ah-hkpq time was 25 minutes. I spent more than 50% of this time in counseling and/or coordination of care as documented in the note. The patient visit started at 1302 and ended at 1333. Greater than 50% of the visit was spent on counseling and coordinating care. Patient was counseled on rationale for starting amantadine. Assessment & Plan (09/12/2019 6:19 PM CONSUMER [employer]LECT[employer] MERCHANDISER): - 69 y.o. man with Parkinson's disease [...] Type Department Care Team Description 06/30/[address] [facility] Medicine Movement Disorders [address] [place] [address] Kimi Pack [facility] 06/28/[address] [facility] Medicine Movement Disorders [address]th [place] [address] Kimi Pack [facility] 06/26/[address] [facility] Medicine Movement Disorders [address] 6th [place] [address] [place] [address] Romana Cabral MD Drooling (Primary Dx) 06/26/[address] [facility] Medicine Movement Disorders [address] 6th [place] [address] [place] [address] Romana Cabral MD Sialorrhea (Primary Dx) 06/22/[address] [facility] Medicine Scheduling [address] [place] [address] Romana Cabral MD Scheduling Appointments 06/21/2025 3:30 PM CDT Office Visit [facility] Medicine Movement Disorders [address] [place] [address] Vanita Knott, ACTIVITY AIDE Parkinson's disease with dyskinesia and fluctuating manifestations (HCC) (Primary Dx); Slow transit constipation; Primary insomnia; Primary freezing of gait from Last 3 Months Immunizations Immunization Administration Dates Next Due COVID-19 mRNA ([email or web address]) 0.3 m L (30 mcg) vaccine (12 [...] 12/13/2020,06/05/2020 Surgical History Surgery Date Site/Laterality Comments SD BIOPSY TESTIS INCISIONAL SEPARATE PROCEDURE 08/31/2013 - [...] (Added by TW Conv) Parkinson's disease (HCC) [place] son disease, symptomatic - (Added by TW [...] on file Legal Sex Male 2:48 PM [employer]CH[employer]ER Gender Identity Not on file Sexual Orientation [...] Zoster Vaccine Completed 12/13/2020, 01/2020, 06/21/2014 Insurance [facility] [employer] Address: [facility] [id number] [place] [id number] [facility] Address: [facility] [id number] [place] [phone] [employer] Care Teams Legal Administrator Relationship Specialty Start Date End Date Teresa Oshea NP [address] [place] [address] PCP - General Nurse Practitioner 09/02/23
--- OUTSIDE RECORDS SUMMARY | 2025-08-20 14:25 | XMS_ITS | Clinical Summary ---
Author Organization [facility] Address [address] [place] [address] Care Team Providers Care Medical Assistant Dermatology Name Role Phone DorieTeresa BLANCA-ADAPTIVE PHYSICAL EDUCATION SPECIALIST Primary Care Provider [phone] Source Comments [facility],non-owned Affiliates and Associated Physician Practices is amultiple site organization consisting of ambulatory clinics and hospital sitesin [place], [place], [place] and [place]. This disclosure is being madepursuant to the Care Everywhere program and may not contain all information available regarding this patient. Last updated 18.[facility] Immunizations Immunization Administration Dates Next Due FLU [...] topic Insurance [employer] MEDICARE ADV Care Teams Medical Assistant Dermatology Relationship Specialty Start Date End Date Teresa Oshea APRN-CNP [address] [place] [id number] PCP - General Nurse Practitioner Adult Health 02/08/24
--- NOTE | 2025-08-20 14:41 | P.HP_ITS ---
H&P: HPI History of Present Illness Date/Time: 08/20/25 14:41 Chief Complaint: uncontrolled dyspnea and pain Narrative: 75-year-old gentleman with a history of Parkinson's disease presented to his primary care nurse practitioner's office August 07 after falling about 2 days prior. He was having pain in the shoulder and neck regions. Over the week prior he had noted edema of his legs. He was having more difficulty with mobility. He was a bit more confused. At baseline he was alert oriented x3, ambulated with walker, was not choking on food, required assistance with bathing and dressing and setup for feeding, was not incontinent of urine or stool. He played abdominal was game almost daily at the assisted living facility where he his reside. Upon admission to [facility] on August 07 he was diagnosed with congestive heart failure treated with diuresis on August 09 he had respiratory failure requiring intubation and was diagnosed with pneumonia. He was extubated August 13 and failed a swallowing study. To Ts were initiated and he did tolerate these. However he was not improving as far as strength. His speech was very soft and difficult to understand. He continued to have low- grade fevers in spite of antibiotics. Antibiotic was switched to Zosyn on August 18 due to suspected aspiration pneumonia. Because of his failure to improve, his ongoing discomfort, his comorbidities, and his desire for comfort foods he and his family opted for inpatient hospice care for symptom management only. [facility] Past Medical History Medical History Left leg DVT not currently on anticoagulation Unspecified abnormalities of gait and mobility Other malaise COVID-19 Pulmonary embolism Elliquis discontinued after 6-8 weeks Lymphedema KYLE on CPAP Extrinsic asthma, unspecified Asthma Esophageal reflux Non-recurrent bilateral inguinal hernia without obstruction or gangrene Parkinson disease Surgical History Surgical History H/O hernia repair History of ear surgery (~11/2017) Implant - Lt Ear History of surgery on arm (~1998) Muscle Tear - Rt History of removal of cyst (~07/29/17) Rt Testicle History of tooth extraction Family History Family History Father Diabetes mellitus Mother Hypertension Family history of kidney disease Family history of renal failure Sibling Asthma Family history of malignant neoplasm Family history of seizure disorder Family history of sudden , Onset Age: 57 Family history of congestive heart failure, Onset Age: 57 Protein S deficiency Social History Social History Social History: Retired. He and his reside in an assisted living facility. Code status: DNR. Smoking status: Never smoker Second hand tobacco smoke exposure: No Alcohol intake: former Substance use: former Substance use type: does not use Lack of Transportation: No Lack of Food: Never True Current Housing: I Have Housing Concerned About Future Housing: No Difficulty Paying Gas/Electric Bills: No Difficulty Paying for Meds: No Currently Unemployed: No Education: Associate Degree Difficulty w/ Childcare or Family Care: No Living arrangements: assisted living Additional living arrangements comments: [facility] Occupation/Education: retired Gender identity (if verbalized by the patient): Male Sexual Orientation (if Verbalized by the Patient): Straight or Heterosexual Spiritual care concerns: No Agree to blood products: Yes Meds Home Medications and Allergies Home Medications ?Medication ?Instructions ?Recorded ?Confirmed ?Type pramipexole 1 mg tablet (Mirapex) 1 mg PO TID 09/29/22 08/08/25 History vibegron 75 mg tablet (Gemtesa) 75 mg PO DAILY 4 08/08/25 History amantadine HCl 100 mg capsule 100 mg PO TID #90 caps 1 09/09/23 08/08/25 Rx fluticasone propionate 50 2 spray intranasal PRN PRN 1 09/09/23 08/08/25 Rx mcg/actuation nasal allergies #1 spray spray,suspension (Flonase Allergy Relief) gabapentin 600 mg tablet 600 mg PO QHS #30 tabs 07/1008/08/25 Rx guaifenesin 600 mg tablet, 600 mg PO Q12HR #60 tabs 08/08/25 Rx extended release 12 hr (Mucus Relief ER) polyethylene glycol 3350 17 gram 17 g PO QAM #30 ea 08/08/25 Rx oral powder packet (Miralax) sennosides 8.6 mg-docusate sodium 2 tab PO BID #60 tab s 07/10/24 08/08/25 Rx 50 mg tablet tizanidine 4 mg tablet 4 mg PO BID muscle spasticit y #180 07/10/24 08/08/25 Rx tabs trazodone 100 mg tablet 100 mg PO QHS #30 tabs 07/1008/08/25 Rx albuterol sulfate 90 mcg/actuation 2 inh inhalation Q4 H PRN shortness 11/17/24 08/08/25 Rx aerosol inhaler of breath or wheezing #8.5 g ngoc inhalational spacing device #1 ea 11/17/24 08/09/25 Rx (BreatheRite MDI Spacer) fluticasone fur. 100 mcg-umeclid 100-62.5-25 mcg Blist er With 02/13/25 08/08/25 Sample 62.5 mcg-vilant 25 mcg Device#2 Samples inhalat.powder (Trelegy Ellipta) sertraline 25 mg tablet 25 mg PO DAILY #30 tabs 03/0108/08/25 Rx carbidopa ER 50 mg-levodopa 200 mg 4 tablet PO HS 04/2408/08/25 History tablet,extended release carbidopa 25 mg-levodopa 250 mg 2.5 tablet PO TID 05/2508/08/25 History tablet Allergies Allergy/AdvReac Type Severity Reaction Status Date / Time No Known Allergies Allergy Verified 08/08/25 00:04 Exam Narrative: GENERAL: Chronically ill-appearing elderly male who appears older than stated age, nasal oxygen in place HEENT: PERRL, sclerae nonicteric, pharyngeal mucosa pink and intact NECK: Moderate jugular venous distention CHEST: Moderately tachypneic with coarse breath sounds throughout and scattered coarse crackles throughout HEART: NL S1/S2, regular, no murmur ABDOMEN: BS+, soft, nontender, no mass, no bruits EXTREMITIES: No cyanosis, edema, or clubbing NEUROLOGIC: CN intact and symmetric to inspection, no tremor noted, bradykinetic, speech soft and difficult to discern MUSCULOSKELETAL: No deformities to inspection, posture is flexed PSYCH: Awake but drowsy, oriented to person, unclear whether place or time Assessment and Plan Assessment and plan (1) Hospice care: Code(s): Z51.5 - Encounter for palliative care Status: Acute Assessment and Plan: * Meet inpatient hospice criteria due to requiring continuous IV morphine at 0.5 milligrams/hour for control of pain and dyspnea * P.r.n. palliative regimen ordered * 08/20/2025 discussed care with and daughter at bedside (2) Parkinson disease: Qualifiers: Dyskinesia presence: unspecified whether dyskinesia Fluctuating manifestations: unspecified whether manifestations fluctuate Qualified Code(s): G20.A1 - Parkinson's disease without dyskinesia, without mention of fluctuations Code(s): G20 - Parkinson's disease Status: Acute (3) Pneumonia: Code(s): J18.9 - Pneumonia, unspecified organism Status: Acute (4) Acute respiratory failure: Code(s): J96.00 - Acute respiratory failure, unspecified whether with hypoxia or hypercapnia Status: Acute (5) Dysphagia: Code(s): R13.10 - Dysphagia, unspecified Status: Acute (6) Congestive heart failure: Code(s): I50.9 - Heart failure, unspecified Status: Acute (7) Polyarticular arthritis: Code(s): M13.0 - Polyarthritis, unspecified Status: Acute (8) Back pain: Code(s): M54.9 - Dorsalgia, unspecified Status: Acute (9) Obstructive sleep apnea (adult) (pediatric): Code(s): G47.33 - Obstructive sleep apnea (adult) (pediatric) Status: Acute
[2025-08-20 16:05] VITALS: O2SAT 93
[2025-08-20 16:09] VITALS: BMI 41.7
[2025-08-20] MEDS: MORPHINE SULFATE INJ (*CRX) 50 MG in SODIUM CHLORIDE 0.9% IV 95 ML IV CONT (16:37)
[2025-08-20 20:00] VITALS: PULSE 91; RESP 20; O2SAT 92
[2025-08-20 20:35] VITALS: BP 135/58; PULSE 91; RESP 20; TEMP 36.8; O2SAT 92
[2025-08-21] MEDS: MORPHINE SULFATE (*CRX) 4 MG/ML INJ 1 MG IV PUSH (02:35)
[2025-08-21] MEDS: LORazepam INJ (*CRX) 2 MG/ML VIAL 0.5 MG IV PUSH ×3 (05:28→23:34)
--- NOTE | 2025-08-21 12:27 | P.PNIM_ITS ---
Assessment and Plan Assessment and Plan (1) Hospice care: Code(s): Z51.5 - Encounter for palliative care Status: Acute Assessment and Plan: * Meet inpatient hospice criteria due to requiring continuous IV morphine at 0.5 milligrams/hour for control of pain and dyspnea * P.r.n. palliative regimen ordered * 08/20/2025 discussed care with and daughter at bedside * 08/21/2025 requiring p.r.n. medications for agitation, now less responsive, discussed care prognosis at bedside (2) Parkinson disease: Qualifiers: Dyskinesia presence: unspecified whether dyskinesia Fluctuating manifestations: unspecified whether manifestations fluctuate Qualified Code(s): G20.A1 - Parkinson's disease without dyskinesia, without mention of fluctuations Code(s): G20 - Parkinson's disease Status: Acute (3) Pneumonia: Code(s): J18.9 - Pneumonia, unspecified organism Status: Acute (4) Acute respiratory failure: Code(s): J96.00 - Acute respiratory failure, unspecified whether with hypoxia or hypercapnia Status: Acute (5) Dysphagia: Code(s): R13.10 - Dysphagia, unspecified Status: Acute (6) Congestive heart failure: Code(s): I50.9 - Heart failure, unspecified Status: Acute (7) Polyarticular arthritis: Code(s): M13.0 - Polyarthritis, unspecified Status: Acute (8) Back pain: Code(s): M54.9 - Dorsalgia, unspecified Status: Acute (9) Obstructive sleep apnea (adult) (pediatric): Code(s): G47.33 - Obstructive sleep apnea (adult) (pediatric) Status: Acute Subjective Date/time seen: 08/21/25 12:27 Interval history: Was agitated earlier today. Required IV did lorazepam. Now sedated. Was with responding to family earlier. Has been sipping on fluids. Review of Systems Review of Systems: ROS unobtainable: Yes unobtainable due to medical condition Exam Narrative: GENERAL: Chronically ill-appearing elderly male who appears older than stated age, nasal oxygen in place HEENT: PERRL, sclerae nonicteric, pharyngeal mucosa pink and intact NECK: Moderate jugular venous distention CHEST: Mildly tachypneic, coarse breath sounds, scattered coarse crackles throughout HEART: NL S1/S2, regular, no murmur ABDOMEN: BS+, soft, nontender, no mass, no bruits EXTREMITIES: No cyanosis, edema, or clubbing NEUROLOGIC: CN intact and symmetric to inspection, no tremor noted, bradykinetic , speech soft and difficult to discern MUSCULOSKELETAL: No deformities to inspection, posture is flexed PSYCH: Unresponsive to verbal or tactile stimuli Objective Data Vital Signs Vital Signs: Vital Signs - 24 hr 08/20/25 16:05 08/20/25 20:00 08/20/25 20:35 Temperature 98.2 F Pulse Rate 91 91 Respiratory Rate 20 20 Blood Pressure 135/58 L Pulse Oximetry 93 92 92 Oxygen Delivery Nasal Cannula Nasal Cannula Oxygen Flow Rate 3.5 3.5 08/21/25 08:00 Temperature Pulse Rate Respiratory Rate Blood Pressure Pulse Oximetry Oxygen Delivery Nasal Cannula Oxygen Flow Rate 3 Intake/Output Intake/Output: Intake & Output 08/18/25 08/19/25 08/20/25 08/21/25 23:59 23:59 23:59 23:59 Intake Total 50 Output Total 950 Balance -900 Meds/Results Medications: Active Medications Generic Name Dose Route Start Last Admin Trade Name Freq PRN Reason Stop Dose Admin Acetaminophen 650 mg 08/20/25 14:50 Acetaminophen 650 Mg Suppository RECTAL Q6H PRN Fever Artificial Tears 1 drop 08/20/25 14:50 Artificial Tears Ophth Soln 15 Ml Bottle EACH EYE Q4H PRN Dry Eye(s) Bisacodyl 10 mg 08/20/25 14:50 Bisacodyl 10 Mg Suppository RECTAL DAILY PRN Constipation Glycopyrrolate 0.1 mg 08/20/25 14:50 Glycopyrrolate Inj (*Sp) 0.2 Mg/Ml Vial IV PUSH Q4H PRN secretions Morphine Sulfate 50 mg/ Sodium 100 mls @ 1 mls/hr 08/20/25 14:50 08/20/25 16:37 Chloride IV CONT 0.5 mg/hr .Q24H DALE 1 mls/hr 0.5 MG/HR Administration Lorazepam 0.5 mg 08/20/25 14:50 08/21/25 11:26 Lorazepam Inj (*Crx) 2 Mg/Ml Vial IV PUSH 0.5 mg Q4H PRN Administration ANXIETY/RESTLESSNESS/DYSPNEA Morphine Sulfate 1 mg 08/20/25 14:49 08/21/25 02:35 Morphine Sulfate (*Crx) 4 Mg/Ml Inj IV PUSH 1 mg Q1H PRN Administration PAIN/DYSPNEA Prochlorperazine Edisylate 10 mg 08/20/25 14:50 Prochlorperazine Edisylate 10 Mg/2 Ml Vial IV PUSH Q6H PRN Nausea And Vomiting
[2025-08-21 15:15] VITALS: PULSE 91; RESP 20
[2025-08-21] MEDS: MORPHINE SULFATE INJ (*CRX) 50 MG in SODIUM CHLORIDE 0.9% IV 95 ML IV CONT (15:15)
[2025-08-21] MEDS: HYOSCYAMINE SULFATE 0.5 MG/ML AMPUL 0.25 MG IM (15:18)
[2025-08-21 20:00] VITALS: PULSE 91; RESP 20; O2SAT 92
[2025-08-21 22:57] VITALS: BP 113/46; PULSE 98; RESP 20; TEMP 36.4; O2SAT 92
[2025-08-22] MEDS: MORPHINE SULFATE (*CRX) 4 MG/ML INJ 1 MG IV PUSH ×2 (04:19→06:17)
[2025-08-22] MEDS: GLYCOPYRROLATE INJ (*SP) 0.2 MG/ML VIAL 0.1 MG IV PUSH ×3 (04:20→20:35)
[2025-08-22] MEDS: LORazepam INJ (*CRX) 2 MG/ML VIAL 0.5 MG IV PUSH ×2 (06:18→12:25)
--- NOTE | 2025-08-22 07:44 | P.PNIM_ITS ---
Assessment and Plan Assessment and Plan (1) Hospice care: Code(s): Z51.5 - Encounter for palliative care Status: Acute Assessment and Plan: * Meet inpatient hospice criteria due to requiring continuous IV morphine at 0.5 milligrams/hour for control of pain and dyspnea * P.r.n. palliative regimen ordered * 08/20/2025 discussed care with and daughter at bedside * 08/21/2025 requiring p.r.n. medications for agitation, now less responsive, discussed care prognosis at bedside * 08/22/2025 increased morphine to 1 mg/hr (2) Parkinson disease: Qualifiers: Dyskinesia presence: unspecified whether dyskinesia Fluctuating manifestations: unspecified whether manifestations fluctuate Qualified Code(s): G20.A1 - Parkinson's disease without dyskinesia, without mention of fluctuations Code(s): G20 - Parkinson's disease Status: Acute (3) Pneumonia: Code(s): J18.9 - Pneumonia, unspecified organism Status: Acute (4) Acute respiratory failure: Code(s): J96.00 - Acute respiratory failure, unspecified whether with hypoxia or hypercapnia Status: Acute (5) Dysphagia: Code(s): R13.10 - Dysphagia, unspecified Status: Acute (6) Congestive heart failure: Code(s): I50.9 - Heart failure, unspecified Status: Acute (7) Polyarticular arthritis: Code(s): M13.0 - Polyarthritis, unspecified Status: Acute (8) Back pain: Code(s): M54.9 - Dorsalgia, unspecified Status: Acute (9) Obstructive sleep apnea (adult) (pediatric): Code(s): G47.33 - Obstructive sleep apnea (adult) (pediatric) Status: Acute Subjective Date/time seen: 08/22/25 07:44 Interval history: Restless during night. Appeared uncomfortable. 3 prn morphine doses given. Minimal PO intake. Review of Systems Review of Systems: ROS unobtainable: Yes unobtainable due to medical condition Exam Narrative: GENERAL: Chronically ill-appearing elderly male who appears older than stated age, nasal oxygen in place HEENT: PERRL, sclerae nonicteric, pharyngeal mucosa pink and intact NECK: Moderate jugular venous distention CHEST: Mildly tachypneic, coarse breath sounds throughout HEART: NL S1/S2, regular, no murmur ABDOMEN: BS+, soft, nontender, no mass, no bruits EXTREMITIES: No cyanosis, edema, or clubbing NEUROLOGIC: CN intact and symmetric to inspection, no tremor noted, bradykinetic, speech soft and difficult to discern MUSCULOSKELETAL: No deformities to inspection, posture is flexed PSYCH: Responds to verbal and tactile stimuli in nondirected fashion. Objective Data Vital Signs Vital Signs: Vital Signs - 24 hr 08/21/25 08:00 08/21/25 15:15 08/21/25 15:15 Temperature Pulse Rate 91 Respiratory Rate 20 20 Blood Pressure Pulse Oximetry Oxygen Delivery Nasal Cannula Oxygen Flow Rate 3 08/21/25 20:00 08/21/25 22:57 Temperature 97.6 F Pulse Rate 91 98 Respiratory Rate 20 20 Blood Pressure 113/46 L Pulse Oximetry 92 92 Oxygen Delivery Nasal Cannula Oxygen Flow Rate 3.5 Intake/Output Intake/Output: Intake & Output 08/19/25 08/20/25 08/21/25 08/22/25 23:59 23:59 23:59 23:59 Intake Total 72.6 Output Total 950 800 Balance -877.4 -800 Meds/Results Medications: Active Medications Generic Name Dose Route Start Last Admin Trade Name Freq PRN Reason Stop Dose Admin Acetaminophen 650 mg 08/20/25 14:50 Acetaminophen 650 Mg Suppository RECTAL Q6H PRN Fever Artificial Tears 1 drop 08/20/25 14:50 Artificial Tears Ophth Soln 15 Ml Bottle EACH EYE Q4H PRN Dry Eye(s) Bisacodyl 10 mg 08/20/25 14:50 Bisacodyl 10 Mg Suppository RECTAL DAILY PRN Constipation Glycopyrrolate 0.1 mg 08/20/25 14:50 08/22/25 04:20 Glycopyrrolate Inj (*Sp) 0.2 Mg/Ml Vial IV PUSH 0.1 mg Q4H PRN Administration secretions Morphine Sulfate 50 mg/ Sodium 100 mls @ 1 mls/hr 08/20/25 14:50 08/21/25 15:15 Chloride IV CONT 0.5 mg/hr .Q24H DALE 1 mls/hr 0.5 MG/HR Administration Lorazepam 0.5 mg 08/20/25 14:50 08/22/25 06:18 Lorazepam Inj (*Crx) 2 Mg/Ml Vial IV PUSH 0.5 mg Q4H PRN Administration ANXIETY/RESTLESSNESS/DYSPNEA Morphine Sulfate 1 mg 08/20/25 14:49 08/22/25 06:17 Morphine Sulfate (*Crx) 4 Mg/Ml Inj IV PUSH 1 mg Q1H PRN Administration PAIN/DYSPNEA Prochlorperazine Edisylate 10 mg 08/20/25 14:50 Prochlorperazine Edisylate 10 Mg/2 Ml Vial IV PUSH Q6H PRN Nausea And Vomiting
[2025-08-22 08:00] VITALS: O2SAT 93
[2025-08-22] MEDS: MORPHINE SULFATE INJ (*CRX) 50 MG in SODIUM CHLORIDE 0.9% IV 95 ML IV CONT (18:38)
--- NOTE | 2025-08-22 19:30 | PC.NURSE ---
Patient with the new rate change of morphine 1mg/hr on the IV pump but not changed on the MAR, verified with the 2nd nurse after shift change and the current dose entered in the MAR.
[2025-08-22 20:00] VITALS: O2SAT 84
[2025-08-23 01:05] VITALS: BP 129/42; PULSE 129; RESP 40; TEMP 37; O2SAT 84
--- NOTE | 2025-08-23 05:45 | PC.NURSE ---
At 05:45, went in the patient room to assess the status and found the patient not breathing, no pulses. Called the 2nd nurse RN Fadi to come verify and patient was not breathing and had no pulses. Charge nurse notified.
--- NOTE | 2025-08-23 12:11 | P.DN_ITS ---
Discharge Summary Date and Time Date of : 08/23/25 Time of : 05:45 Provider Pronounced By: 2 RNs Name of First RN That Pronounced: Mishel Schwartz Name of Second RN That Pronounced: Fadi Brandon Probable Cause of Probable Cause of : Acute hypoxemic respiratory failure secondary to pneumonia secondary to aspir ation secondary to Parkinson's disease Summary Hospital Course: Mr. Bernardo was admitted inpatient hospice service for symptom management. Medications were titrated to comfort. Mr. Bernardo peacefully. 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
== END 2025-08-23 07:30 | disposition expired | DRG 951 ==
PROVIDERS: Admitting Provider Internal Medicine; PCP Nurse Practitioner Family; Visit Provider Internal Medicine
DX: Z51.5 Encounter for palliative care (principal); J69.0 Pneumonitis due to inhalation of food and vomit; J96.00 Acute respiratory failure, unspecified whether with hypoxia or hypercapnia; G20.A1 Parkinson's disease without dyskinesia, without mention of fluctuations; R13.10 Dysphagia, unspecified; G47.33 Obstructive sleep apnea (adult) (pediatric); M13.10 Monoarthritis, not elsewhere classified, unspecified site; M13.0 Polyarthritis, unspecified; Z66 Do not resuscitate
CPT/HCPCS: A9270; J1596; J1980; J2060; J2270